=== PATIENT | female | born 1965 | race Caucasian/White ===

== ENCOUNTER 2017-08-09 16:00 | Emergency (ER) | payer OTHER, SELFPAY ==
--- NOTE | 2017-08-09 16:00 | DT_ITS ---
This patient was seen during an EMR downtime August 03, 2017 - August 10, 2017. This patient may have a combination of paper and electronic documentation or all paper documentation. All documentation is viewable within the e-chart portion of [facility] for each patient visit.
== END 2017-08-09 16:15 | disposition home or self-care (01) ==
LOC: ED 08-10 08:20
PROVIDERS: Emergency Provider Emergency Medicine; Family Provider Nurse Practitioner; PCP Nurse Practitioner
DX: I80.3 Phlebitis and thrombophlebitis of lower extremities, unspecified (principal); I10 Essential (primary) hypertension; E78.00 Pure hypercholesterolemia, unspecified; J45.909 Unspecified asthma, uncomplicated; Z78.0 Asymptomatic menopausal state; Z79.899 Other long term (current) drug therapy
CPT/HCPCS: 96372; 99282

== ENCOUNTER → 2017-08-10 10:51 | Outpatient (CLI) | payer OTHER, SELFPAY ==
--- NOTE | 2017-08-10 10:51 | DT_ITS ---
This patient was seen during an EMR downtime August 03, 2017 - August 10, 2017. This patient may have a combination of paper and electronic documentation or all paper documentation. All documentation is viewable within the e-chart portion of [facility] for each patient visit.
--- NOTE | 2017-08-10 10:54 | VDLE_ITS ---
Reason For Study: LEG PAIN RIGHT LEFT GSV is normal. CFV is compressible, spontaneous, phasic, CFV is compressible, spontaneous, phasic, competent, and demonstrates normal competent and demonstrates normal augmentation. augmentation. FV is compressible, spontaneous, phasic, competent and demonstrates normal augmentation. POP V is compressible, spontaneous, phasic, competent and demonstrates normal augmentation. T/P Trunk is compressible. PTV is compressible. RT PerV is compressible. Procedure Exam performed in department. A preliminary report was called and/or faxed to PCP Damaris Sampson. Interpretation Summary Deep veins of the right lower extremity are patent and compressible segmentally. There is no evidence of right lower extremity deep vein thrombosis. Valvular competence appears intact within the proximal deep venous system on the right . The right greater saphenous vein appears patent and compressible segmentally. Ordering Physician: MD Amanda Bergeronfer Referring Physician: Cher Sampson Performed By: Yamilet Lizama RVT
== END ==
PROVIDERS: Family Provider Nurse Practitioner; PCP Nurse Practitioner; Visit Provider Emergency Medicine
DX: M79.604 Pain in right leg (principal)
CPT/HCPCS: 93971

== ENCOUNTER → 2017-08-21 07:32 | Outpatient (CLI) | payer OTHER, SELFPAY ==
--- NOTE | 2017-08-20 17:17 | BI_ITS ---
MAMMOGRAPHY - BILATERAL SCREENING REASON FOR EXAM: Female, 51 years old. Routine annual screening examination. PERTINENT HISTORY: Aunt with breast cancer. TECHNIQUE: Digital bilateral breast mary (3D mammographic acquisition) in the CC and MLO projections. 2-D mediolateral oblique (MLO) and craniocaudad (CC) views of both breasts were obtained. CAD: Full Field Digital Mammography with Computer Added Detection was performed. COMPARISON: Comparison is made with prior study dated 04/17/2016 and July 20, 2015. FINDINGS: Breast Composition: There are scattered areas of fibroglandular density. There are no dominant masses or suspicious calcifications. No other significant abnormalities are identified. There has been no significant change since the prior study. BI/SCREENING MAMM (CAD), BILAT IMPRESSION: Stable bilateral screening mammogram. Yearly follow-up mammogram recommended. (A) ASSESSMENT CATEGORY: BIRADS Category 1: Negative. A letter regarding these results will be sent to the patient by the facility within 30 days. Approximately 10% of breast cancers are not detected by mammography. A normal mammogram should not delay biopsy of a clinically suspicious abnormality. [id number] Electronically Signed: Pola García MD at 12:57 EDT Tel [phone], Service support ,
== END ==
PROVIDERS: Family Provider Nurse Practitioner; PCP Nurse Practitioner; Visit Provider Nurse Practitioner
DX: Z12.31 Encounter for screening mammogram for malignant neoplasm of breast (principal); Z80.3 Family history of malignant neoplasm of breast
CPT/HCPCS: 77063; 77067

== ENCOUNTER → 2017-10-29 12:50 | Outpatient (CLI) | payer OTHER, SELFPAY | PROVIDERS: Family Provider Nurse Practitioner; PCP Nurse Practitioner; Visit Provider Nurse Practitioner | DX: Z78.0 Asymptomatic menopausal state (principal) | CPT/HCPCS: 77080 ==

== ENCOUNTER → 2018-01-19 10:22 | Outpatient (CLI) | payer OTHER, SELFPAY ==
[2018-01-19 10:22] VITALS: BMI 35.6
[2018-01-19 13:19] LABS: Cholesterol 205 mg/dL (200); High Density Lipoprotein 46 mg/dL; Triglycerides 312 mg/dL; Uric Acid 5.8 mg/dL (2.6-6.0); Very Low Density Lipoprotein 62 mg/dL (5-40)
== END ==
PROVIDERS: Family Provider Nurse Practitioner; PCP Nurse Practitioner; Referring Provider Nurse Practitioner; Visit Provider Nurse Practitioner
DX: E78.1 Pure hyperglyceridemia (principal); E79.0 Hyperuricemia without signs of inflammatory arthritis and tophaceous disease
CPT/HCPCS: 36415; 80061; 84550

== ENCOUNTER → 2018-02-22 07:05 | Outpatient (CLI) | payer OTHER, SELFPAY ==
[2018-01-19 10:22] VITALS: BMI 35.6
--- NOTE | 2018-02-22 07:12 | MRI_ITS ---
STUDY: MRI CERVICAL SPINE WITHOUT CONTRAST REASON FOR EXAM: Female, 52 years old. neck pain, burning. TECHNIQUE: Standardized fat and water weighted pulse sequences were obtained in the sagittal and axial planes. COMPARISON: December 07, 2015 FINDINGS: Normal foramen magnum and brainstem-cervical cord junction. Normal craniovertebral junction. Normal anterior atlantoaxial articulation. Normal odontoid process. There is straightening of the normal cervical lordosis. Normal vertebral bodies and posterior osseous elements. C2-3: Normal endplates. Normal disc height, signal and morphology. Normal central canal and intervertebral neural foramina. C3-4: There is minimal disc space narrowing and endplate spondylosis. There is no significant disc herniation, central canal or foraminal stenosis. C4-5: There is minimal disc space narrowing and endplate spondylosis. There is no significant disc herniation, central canal or foraminal stenosis. C5-6: There is mild disc space narrowing and endplates spondylosis. There is a minimal disc osteophyte complex without significant central canal stenosis. There is no foraminal stenosis. Findings are stable since prior examination C6-7: There is moderate disc space narrowing and endplates spondylosis. There is slightly decreased disc osteophyte complex with mild central canal stenosis now. There is uncovertebral arthropathy with minimal foraminal stenosis. C7-T1: Normal endplates. Normal disc height, signal and morphology. Normal central canal and intervertebral neural foramina. Normal cervical cord. Normal visualized soft tissue structures. MRI/Spine Cervical (Routine) IMPRESSION: Decreased protrusion at C6/C7. Electronically Signed: Janeth Diaz MD at 9:22 EST Tel , Service support ,
== END ==
PROVIDERS: Family Provider Nurse Practitioner; PCP Nurse Practitioner; Referring Provider Anesthesiology Pain Medicine; Visit Provider Anesthesiology Pain Medicine
DX: M54.2 Cervicalgia (principal); M79.603 Pain in arm, unspecified
CPT/HCPCS: 72141

== ENCOUNTER 2018-02-25 10:30 | Outpatient (RCR) | payer OTHER, SELFPAY ==
--- NOTE | 2017-04-03 10:46 | MASS.EVAL ---
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 She was referred to the [facility] facility be Dr Cher Sampson with the diagnosis of henatal cervical disc. She reports to having neck and shoulder pain. She reports that the pain is rather constant but the pain increases with working extra hours. She reports that massage helps her greatly. OBJECTIVE: Upon observation Vonnie has poor posture with her head forward and shoulders forward from the neutral position in sitting and standing. After examination and palpation I found Vonnie to have very high muscle tension in his scalenes, trapezius, rhomboids, and sub occipitals with moderate restrictions in cervical ROM. Her thoracic and lumbar paraspinals were tender with muscle knots.The first treatment consisted of a one hour massage to her upper body with myofascial release, muscle stripping, trigger point compression techniques, and cervical manual traction. ASSESSMENT: I feel that Vonnie is a good candidate for massotherapy at this time. She had a favorable response to the first treatment with reduction in her muscle aches, pain and tension. PLAN: The plan of care was reviewed with the patient. The patient is to be seen on as needed basis for a total of ten sessions with the recommendation of once every four weeks for a one hour treatment.
--- NOTE | 2017-04-03 10:51 | MASS.EVAL_ITS ---
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 She was referred to the [facility] facility be Dr Cher Sampson with the diagnosis of henatal cervical disc. She reports to having neck and shoulder pain. She reports that the pain is rather constant but the pain increases with working extra hours. She reports that massage helps her greatly. OBJECTIVE: Upon observation Vonnie has poor posture with her head forward and shoulders forward from the neutral position in sitting and standing. After examination and palpation I found Vonnie to have very high muscle tension in his scalenes, trapezius, rhomboids, and sub occipitals with moderate restrictions in cervical ROM. Her thoracic and lumbar paraspinals were tender with muscle knots.The first treatment consisted of a one hour massage to her upper body with myofascial release, muscle stripping, trigger point compression techniques, and cervical manual traction. ASSESSMENT: I feel that Vonnie is a good candidate for massotherapy at this time. She had a favorable response to the first treatment with reduction in her muscle aches, pain and tension. PLAN: The plan of care was reviewed with the patient. The patient is to be seen on as needed basis for a total of ten sessions with the recommendation of once every four weeks for a one hour treatment.
--- NOTE | 2018-02-25 11:37 | MASS.DISCH ---
Massage Therapy Discharge Summary: Initial Evaluation: 03/31/2017 Diagnosis: Herniated Cervical Disc No. of Visits: Date of last visit: 02/24/2018 Goals: Decreased neck pain Decreased muscle tension This patient is being discharged from our care at the [facility]. Thank you, Mariangel Newman LMT
== END 2018-02-25 12:04 | disposition home or self-care (01) ==
LOC: MASS 10:30
PROVIDERS: Family Provider Nurse Practitioner; PCP Nurse Practitioner; Visit Provider Nurse Practitioner
DX: M50.20 Other cervical disc displacement, unspecified cervical region (principal)
CPT/HCPCS: 97124

== ENCOUNTER 2018-03-10 05:57 | Day surgery (SDC) | payer OTHER, SELFPAY ==
[2018-01-19 10:22] VITALS: BMI 35.6
[2018-03-05 10:51] VITALS: BMI 34.9
[2018-03-10 06:15] VITALS: BP 168/93; PULSE 100; RESP 16; TEMP 36.1; O2SAT 99; BMI 34.4
--- NOTE | 2018-03-10 07:20 | PCM.HP.STD ---
Problem List (1) Screening for colon cancer Status: Acute History of Present Illness Date of Admission: 03/10/18 The patient is a 52 year old F who presents for screening colonoscopy. Past Medical History Past Medical History (Chronic Problems): Chronic Problems (Last Updated 03/05/18 @ 10:54 by Dia Padron) High triglycerides (Chronic) High cholesterol (Chronic) Asthma (Chronic) HTN (hypertension) (Chronic) Medical History: Medical History (Last Reviewed 03/10/18 @ 07:21 by Juan José Lutz MD) High triglycerides (Chronic) E78.1 High cholesterol (Chronic) E78.00 Asthma (Chronic) J45.909 HTN (hypertension) (Chronic) I10 Intervertebral disc protrusion C6 &C7 Allergies No Known Allergies Allergy (Verified 03/08/18 09:10) Home Medications: Ambulatory Orders Medication Instructions Recorded Estradiol [Estrace] 2 mg PO DAILY 10/04/16 atorvastatin 20 mg tablet 20 mg PO DAILY #90 tab 03/05/18 nebivolol 20 mg tablet 20 mg PO DAILY #90 tab 03/05/18 [place]-3 Fatty Acids/Fish Oil [Fish 1 each PO DAILY 03/08/18 Oil 1,000 mg Capsule] Surgical History: Surgical History (Last Reviewed 03/10/18 @ 07:21 by Juan José Lutz MD) H/O: hysterectomy Z98.890, Z90.710 2012 Hx of cholecystectomy Z98.890, Z90.49 2003 Smoking Status: Never smoker Tobacco Use: Non-smoker - *Family History Maternal Family History: Family History (Last Reviewed 03/10/18 @ 07:21 by Juan José Lutz MD) Other Hypertension Review of Systems Cardiovascular: Denies: Chest Pain, Chest Pressure, Chest Tightness, Palpitations Respiratory: Denies: Cough, Hemoptysis, Shortness of breath at rest, Shortness of breath upon exertion, Wheezing Gastrointestinal: Denies: Abdominal Pain, Constipation, Diarrhea, Hematemesis, Nausea, Melena, Vomiting VTE Information - Inpt Only VTE Present on Admission: No VTE Mechan Device Prophylaxis: None VTE Pharm Prophylaxis ordered?: No Reason prophylaxis not ordered:: Treatment Not Indicated Patient Problems: Active and Suspected Problems (Last Updated 03/05/18 @ 10:54 by Dia Padron) Screening for colon cancer (Acute) - Physical Exam General: Alert, Oriented x3 Lungs: Clear to auscultation Cardiovascular: Regular rate, Regular Rhythm, No murmurs Abdomen: Bowel Sounds Present, Soft, Non Tender, Non-Distended Vital Signs Temp Pulse Resp BP Pulse Ox 97.0 F L 100 16 168/93 H 99 03/10/18 06:15 03/10/18 06:15 03/10/18 06:15 03/10/18 06:15 03/10/18 06:15 Oxygen Delivery Method Room Air Weight: 233 lb 6.4 oz Body Mass Index (BMI) 34.4 Assessment/Plan All Active Problems (Last Updated 03/05/18 @ 10:54 by Dia Padron) Screening for colon cancer (Acute) URI (upper respiratory infection) (Acute) RUQ abdominal pain (Acute) My plan is to perform a colonoscopy. Risk benefits have been reviewed the patient at the time of her procedure all questions asked were answered and she agrees to proceed.
[2018-03-10 07:22] VITALS: BP 131/94; BP 168/93; PULSE 90; RESP 16; TEMP 36.2; O2SAT 97
[2018-03-10 07:25] VITALS: BP 142/87; BP 168/93; PULSE 82; RESP 16; O2SAT 97
--- NOTE | 2018-03-10 07:25 | OP.ENDO_ITS ---
Patient Name: Vonnie Gilbert Procedure Date: 03/10/2018 6:31 AM Date of : 1965 Age: 52 Procedure: Colonoscopy Indications: Screening for colorectal malignant neoplasm Providers: Juan José Lutz MD Medicines: See the Anesthesia note for documentation of the administered medications Patient Profile: This is a 52 year old female. Refer to note in patient chart for documentation of history and physical. Last Colonoscopy: none. The patient's first colonoscopy is today. Complications: No immediate complications. Procedure: Pre-Anesthesia Assessment: - Prior to the procedure, a History and Physical was performed, and patient medications and allergies were reviewed. The patient's tolerance of previous anesthesia was also reviewed. The risks and benefits of the procedure and the sedation options and risks were discussed with the patient. All questions were answered, and informed consent was obtained. Prior Anticoagulants: The patient has taken no previous anticoagulant or antiplatelet agents. ASA Grade Assessment: II - A patient with mild systemic disease. After reviewing the risks and benefits, the patient was deemed in satisfactory condition to undergo the procedure. After I obtained informed consent, the scope was passed under direct vision. Throughout the procedure, the patient's blood pressure, pulse, and oxygen saturations were monitored continuously. The colonoscope was introduced through the anus and advanced to the cecum, identified by appendiceal orifice and ileocecal valve. The colonoscopy was performed without difficulty. The patient tolerated the procedure well. The quality of the bowel preparation was good. Scope In: 7:06:29 AM Scope Withdrawal Time 0 hours 7 minutes 14 seconds Scope Out: 7:19:45 AM Total Procedure Duration Time 0 hours 13 minutes 16 seconds Findings: A few small-mouthed diverticula were found in the sigmoid colon. Non-bleeding internal hemorrhoids were found during retroflexion. The hemorrhoids were mild and small. The exam was otherwise without abnormality. Impression: - Diverticulosis in the sigmoid colon. - Non-bleeding internal hemorrhoids. - The examination was otherwise normal. - No specimens collected. Recommendation: - Discharge patient to home. - Resume previous diet. - Continue present medications. - Repeat colonoscopy in 10 years for screening purposes. - Return to primary care physician at appointment to be scheduled. Procedure Code(s): --- Professional --- 97842, Colonoscopy, flexible; diagnostic, including collection of specimen(s) by brushing or washing, when performed (separate procedure) Diagnosis Code(s): --- Professional --- Z12.11, Encounter for screening for malignant neoplasm of colon K64.8, Other hemorrhoids K57.30, Diverticulosis of large intestine without perforation or abscess without bleeding CPT copyright 2017 [employer]. All rights reserved. The codes documented in this report are preliminary and upon heel sewer review may be revised to meet current compliance requirements. MD Juan José Hickman MD 03/10/2018 7:24:54 AM This report has been signed electronically. Number of Addenda: 0 Note Initiated On: 03/10/2018 6:31 AM
[2018-03-10 07:30] VITALS: BP 138/87; BP 168/93; PULSE 80; RESP 16; O2SAT 97
[2018-03-10 07:35] VITALS: BP 139/89; BP 168/93; PULSE 78; RESP 16; TEMP 36.2; O2SAT 95
[2018-03-10 07:45] VITALS: BP 168/93
== END 2018-03-10 07:50 | disposition home or self-care (01) ==
LOC: EN 05:59 → AC 06:00
PROVIDERS: Family Provider Internal Medicine; PCP Internal Medicine; Referring Provider Internal Medicine; Visit Provider Surgery
PROC: 0DJD8ZZ Inspection of Lower Intestinal Tract, Via Natural or Artificial Opening Endoscopic (ICD-10-PCS; CPT 45378; principal; 2018-03-10 06:55)
DX: Z12.11 Encounter for screening for malignant neoplasm of colon (principal); K57.30 Diverticulosis of large intestine without perforation or abscess without bleeding; K64.8 Other hemorrhoids; R10.11 Right upper quadrant pain; J06.9 Acute upper respiratory infection, unspecified; I10 Essential (primary) hypertension; E78.2 Mixed hyperlipidemia; J45.909 Unspecified asthma, uncomplicated; M50.223 Other cervical disc displacement at C6-C7 level; Z79.899 Other long term (current) drug therapy; Z90.49 Acquired absence of other specified parts of digestive tract; Z90.710 Acquired absence of both cervix and uterus
CPT/HCPCS: 45378; J7120; J1610

== ENCOUNTER → 2018-03-22 14:17 | Outpatient (CLI) | payer OTHER, SELFPAY ==
[2018-03-10 06:15] VITALS: BMI 34.4
[2018-03-22 15:06] LABS: Color, Urine Yellow (Yellow); Glucose, Dipstick Normal (Normal); Hematocrit 43.2 % (37-47); Hemoglobin 14.8 g/dl (12.0-15.0); Ketone-Dipstick Negative (Negative); Leukocyte Esterase-Dipstick Negative /ul (Negative); Mean Corp Hgb Conc 34.3 g/gl (32-36); Mean Corpuscular Hgb 30.7 pg (27.0-32.0); Mean Corpuscular Volume 89.6 fL (81-99); Mean Platelet Vol. 10.2 fl (6.2-12.0); Nitrite-Dipstick Negative (Negative); Occult Blood-Urine Negative /ul (Negative); Platelet Count 273 K/mm3 (150-450); Protein-Dipstick Negative (Negative); RBC Distribution Width CV 12.5 % (11.6-14.6); RBC Distribution Width SD 40.7 fl (35.1-43.9); Red Blood Count 4.82 M/mm3 (4.2-5.4); Urine Bilirubin Dipstick Negative (Negative); Urine Clarity Sl. Cloudy (Clear); Urine Urobilinogen Normal (Normal); White Blood Count 6.4 K/mm3 (4.4-11.0)
[2018-03-22 15:07] LABS: Scan Indicated on CBC? Y/N NO
[2018-03-22 16:09] LABS: ALB/GLOB Ratio 1.1 RATIO (0.9-2.4); AST(SGOT) 23 U/L (15-37); Alanine Aminotransfer ALT/SGPT 37 U/L (13-56); Albumin, Serum 3.5 g/dL (3.2-5.0); Alkaline Phosphatase 79 U/L (45-117); Anion Gap 8 (5-15); BUN 15 mg/dL (7-18); BUN/Creat Ratio 17.6 RATIO (10-20); Calcium,Total 8.6 mg/dL (8.5-10.1); Chloride 106 mmol/L (98-107); Creatinine, Serum 0.85 mg/dL (0.55-1.02); EST Glomerular Filtration Rate 75 mL/min (>60); Est Glom Filt Rate - Afr Amer 91 mL/min (>60); Globulin 3.2 g/dL (2.2-4.2); Glucose 110 mg/dL (74-106); Protein, Total 6.7 g/dL (6.4-8.2); Sodium Level 140 mmol/L (136-145)
--- OUTSIDE RECORDS SUMMARY | 2018-05-25 02:24 | XMS RPT_ITS | Continuity of Care Document ---
:1965 Author Organization [facility] Address [address] [facility] [address] [place] [address] Phone Care Team Providers Name Role Phone Cher Sampson CNP Unavailable Wesley JOYA, Juan José Ayala Unavailable Lamonte Kamara Unavailable Jany Sood Unavailable Yvette Benavidez Unavailable Unavailable Florence Farias LPN Unavailable Unavailable Eric Soriano Unavailable Unavailable Unavailable Unavailable Problems Name Dates Details Abnormal EKG (R94.31, 794.31) Comments: for preop Status: Active Allergic rhinitis due to other allergen (J30.89, 477.8) Comments: add saline rinse Status: Active Asthma (J45.909, 493.90) Comments: Mild, and controlled Status: Active Asthma, intrinsic, with status asthmaticus (J45.902, 493.11) Comments: Spirometry next visit. Status: Active BMI 33.0-33.9,adult (Z68.33, V85.33) Status: Active BMI 35.0-35.9,adult (Z68.35, V85.35) Status: Active Breast cancer screening (Z12.39, V76.10) Status: Active Breast cancer screening (Z12.31, V76.10) Status: Active Bronchitis (J40, 490) Status: Active Cellulitis and abscess of other specified site (L03.818, 682.8) Comments: RT arm RESOLVED Status: Active Cervical herniated disc (M50.20, 722.0) Status: Active Cervical radiculopathy, acute (Renamed from Acute cervical radiculopathy) (M54.12, 723.4) Comments: have tried biofreeze, massage, Nsaid, no relief, dry needle, physical therapy, will get MRI send to [facility] adding gabapentin and muscle relax worsening Status: Active Cervical strain (S16.1XXA, 847.0) Comments: unrelieved with ibuprofen Status: Active Chest pain (R07.9, 786.59) Status: Active Cholecystectomy (Gall Bladder Removal) Status: Active Conjunctival irritation (H11.89, 372.89) Status: Active Cough (R05, 786.2) Status: Active Cough (R05, 786.2) Status: Active Cough (R05, 786.2) Comments: certrazine taking 2 qam Status: Active Cramps of right lower extremity (R25.2, 729.82) Status: Active Deliveries (Parity) Comments: 2 Status: Active Elevated uric acid in blood (E79.0, 790.6) Comments: repeat normal Status: Active Encounter for pre-employment examination (Z02.1, V70.5) Comments: physician annual wellness Status: Active Encounter for screening for malignant neoplasm of colon (Renamed from Special screening for malignant neoplasms, colon) (Z12.11, V76.51) Status: Active Encounter for screening mammogram for breast cancer (Renamed from Encounter for screening mammogram for malignant neoplasm of breast) (Z12.31, V76.12) Status: Active Ganglion cyst of foot (M67.479, 727.43) Status: Active GERD (gastroesophageal reflux disease) (K21.9, 530.81) Comments: Mild, less than 2 times weekly, cut back on coffee Status: Active Hammer toe of second toe of right foot (M20.41, 735.4) Status: Active Hypercholesteremia (E78.00, 272.0) Comments: back on atorvastatin Status: Active Hypertension (I10, 401.9) Comments: was well controlled on norvasc and HCTZ, pt stopped norvasc and BP risealso on estrogen per Dr. Hines, would decrease to 1/2unable to tolerate OLIVA or ARB due to cough once dced cough gone Status: Active Hypertriglyceridemia (E78.1, 272.1) Status: Active Hypertriglyceridemia, sporadic (E78.3, 272.3) Comments: on atorvastatin triglycerides 325 Status: Active 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, 214.1) Status: Active Lipoma of lower extremity (D17.20, 214.8) Comments: rt groin will observe for now and send to derm in Sep Status: Active Motion sickness (T75.3XXA, 994.6) Status: Active Nonsmoker (Z78.9, V49.89) Status: Active Nonsmoker (Z78.9, V49.89) Status: Active Physical exam for work/school/camp (Renamed from Encounter for school health examination) (Z02.0, V70.5) Status: Active Physical exam without abnormal findings (Renamed from Encounter for routine adult health examination without abnormal findings) (Z00.00, V70.0) Status: Active Plantar fascial fibromatosis (M72.2, 728.71) Comments: rt Status: Active Postmenopausal (Renamed from Postmenopausal status) (Z78.0, V49.81) Comments: By Bones for hot flashes, hs had hysterectomy Status: Active Pregnancies () Comments: 2 Status: Active Pre-operative examination (Z01.818, V72.84) Comments: Rt foot plantar faciatis and heel spur removal on September 07 Dr. Kidd Status: Active Proteinuria (R80.9, 791.0) Comments: in new hypertensive pt, spep upep normal Status: Active Sebaceous cyst (L72.3, 706.2) Status: Active Serous conjunctivitis, unspecified laterality (H10.239, 372.01) Status: Active Tubal Ligation Status: Active Unspecified asthma with (acute) exacerbation (J45.901, 493.92) Status: Active Unspecified Diagnosis Status: Active Unspecified Diagnosis Status: Active Unspecified Diagnosis Status: Active Unspecified Diagnosis Status: Active Unspecified Diagnosis Status: Active Unspecified Diagnosis Status: Active Unspecified Diagnosis Status: Active Vaccine for dkpxzxucnw-vadwurn-mwbpremlj with poliomyelitis (Z23, V06.3) Status: Active Well Female (V72.31) (II) (Z00.00, V70.0) Status: Active Wheezing (R06.2, 786.07) Status: Active Medications Name Dates Details Bystolic 10 MG Oral Tablet 1 (one) Tablet daily for 30 days Quantity: 90 {Tablet} Refills: 3 Ordered:25-Jan-2018 Camilla ANNE, Cher Edge CNP Start : 25-Jan-2018 Active Cetirizine HCl 10 MG Oral Tablet 2 (two) Tablet daily for 30 days Quantity: 30 {Tablet} Refills: 2 Ordered:21-Oct-2017 Camilla ANNE, Cher Edge CNP Start : 21-Oct-2017 Active Estradiol 2 MG Oral Tablet 1 (one) Tablet daily for 90 days Quantity: 90 {Tablet} Refills: 3 Ordered:25-Jan-2018 Camilla ANNE, Cher Edge CNP Start : 25-Jan-2018 Active Lipitor 20 MG Oral Tablet 1 Tablet daily for 90 days Quantity: 90 {Tablet} Refills: 0 Ordered:25-Jan-2018 Camilla ANNE, Cher Edge CNP Start : 25-Jan-2018 Active ProAir HFA 108 (90 Base) MCG/ACT Inhalation Aerosol Solution 2 (two) Puff(s) tid prn for 0 days Quantity: 1 {Inhaler} Refills: 0 Ordered:19-Aug-2017 Cher Sampson CNP, CNP, Mary E Start : 19-Aug-2017 Active BACTRIM DS, 800-160MG (Oral Tablet) 1 (one) Tablet bid for 7 days Quantity: 14 {Tablet} Refills: 0 Ordered:20-Aug-2009 Cher Sampson CNP, CNP, Mary E Start : 20-Aug-2009 End : 27-Aug-2009 Inactive BENICAR HCT, 40-12.5MG (Oral Tablet) 1 Tablet daily for 0 days Quantity: 30 {Tablet} Refills: 3 Ordered:28-May-2011 Fiorella Rae LPN Start : 29-Jan-2011 End : 28-May-2011 Inactive Cheratussin AC 100-10 MG/5ML Oral Syrup 1-2 Teaspoon(s) qhs prn cough for 0 days Quantity: 6 {Ounce} Refills: 0 Ordered:16-Jun-2017 Eric Soriano Start : 09-Jul-2016 End : 16-Jun-2017 Inactive Cyclobenzaprine HCl 5 MG Oral Tablet 1 (one) Tablet Tablet q8hrs prn for 0 days Quantity: 30 {QS} Refills: 0 Ordered:16-Jun-2017 Eric Soriano Start : 30-Nov-2015 End : 16-Jun-2017 Inactive FLECTOR, 1.3% (Transdermal Patch) 1 (one) Patch bid for 0 days Quantity: 7 {Patch} Refills: 0 Ordered:06-Nov-2009 Fiorella Rae LPN Start : 22-Oct-2009 Inactive FLEXERIL, 10MG (Oral Tablet) 1 (one) Tablet tid prn for muscle spasm for 0 days Quantity: 30 {Tablet} Refills: 0 Ordered:06-Nov-2009 Fiorella Rae LPN Start : 12-Oct-2009 Inactive HYDROCHLOROTHIAZIDE, 12.5MG (Oral Tablet) 1 Tablet daily for 0 days Quantity: 90 {Tablet} Refills: 3 Ordered:16-Aug-2013 Tisha Salcedo Start : 28-Jun-2012 End : 16-Aug-2013 Inactive KEFLEX, 500MG (Oral Capsule) 1 Capsule bid for 7 days Quantity: 14 {Capsule} Refills: 0 Ordered:30-Jun-2012 Perlitadamián ANNE, Cher Wallace CNP, Cynthia Start : 30-Jun-2012 End : 07-Jul-2012 Inactive LEVAQUIN, 500MG (Oral Tablet) 1 (one) Tablet daily for 7 days Quantity: 7 {Tablet} Refills: 0 Ordered:15-May-2014 [facility] IN[facility], Cher aWllace CNP, Cynthia Start : 15-May-2014 End : 22-May-2014 Inactive LISINOPRIL, 5MG (Oral Tablet) 1 Tablet daily for 0 days Quantity: 30 {Tablet} Refills: 3 Ordered:11-Feb-2011 Fiorella Rae LPN Start : 15-Jan-2011 End : 11-Feb-2011 Inactive LIVALO, 2MG (Oral Tablet) 1 Tablet daily for 0 days Quantity: 30 {Tablet} Refills: 3 Ordered:28-May-2011 Fiorella Rae LPN Start : 29-Jan-2011 End : 28-May-2011 Inactive MOTRIN, 400MG (Oral Tablet) Tablet bid for 7 days Quantity: 30 {Tablet} Refills: 0 Ordered:09-Feb-2008 Camilla ANNE, Cher Wallace CNP, Cher Henson Start : 09-Feb-2008 End : 10-Mar-2008 Inactive MYCELEX, 10MG (Mouth/Throat Mikey) 1 (one) Mikey 5 times daily for 10 days Quantity: 50 {Mikey} Refills: 0 Ordered:28-Aug-2009 Camilla ANNE, Cher Wallace CNP, Cher Henson Start : 13-Aug-2009 End : 23-Aug-2009 Inactive NORVASC, 10MG (Oral Tablet) 1 Tablet daily for 0 days Quantity: 90 {Tablet} Refills: 3 Ordered:30-Mar-2012 Fiorella Rae LPN Start : 16-Sep-2011 End : 30-Mar-2012 Inactive NORVASC, 5MG (Oral Tablet) 1 (one) Tablet daily for 0 days Quantity: 90 {Tablet} Refills: 3 Ordered:22-Dec-2011 Fiorella Rae LPN Start : 16-Sep-2011 End : 22-Dec-2011 Inactive OCUFLOX, 0.3% (Ophthalmic Solution) 2 (two) Drop(s) q4hrs x 2days, then 1-2 drops qid x 5 days for 0 days Quantity: 1 {Solution} Refills: 0 Ordered:16-Aug-2013 Tisha Salcedo Start : 30-Mar-2012 End : 16-Aug-2013 Inactive PEPCID, 20MG (Oral Tablet) 1 (one) Tablet bid prn for 0 days Quantity: 10 {Tablet} Refills: 0 Ordered:15-Jan-2011 Fiorella Rae LPN Start : 12-Oct-2009 End : 15-Jan-2011 Inactive PredniSONE 10 MG Oral Tablet 1 (one) Tablet bid x 3 days, then daily x3 days then 1/2 x3 days for 0 days Quantity: 11 {Tablet} Refills: 0 Ordered:16-Jun-2017 Eric Soriano Start : 09-Jul-2016 End : 16-Jun-2017 Inactive Comments:with food PREDNISONE, 20MG (Oral Tablet) 1 (one) Tablet bid x 3 days, then daily x 3 days then 1/2 x3 days for 3 days Quantity: 3 {Tablet} Refills: 0 Ordered:04-Feb-2013 Camilla ANNE, Cher Wallace CNP, Cher Henson Start : 04-Feb-2013 End : 07-Feb-2013 Inactive Comments:with food Zithromax Z-Speedy 250 MG Oral Tablet 1 Tablet TAD for 0 days Quantity: 1 {Package} Refills: 0 Ordered:16-Jun-2017 Eric Soriano Start : 09-Jul-2016 End : 16-Jun-2017 Inactive Aleve 220 MG Oral Tablet 1 (one) Tablet Tablet bid prn for 0 days Quantity: 60 {Tablet} Refills: 0 Ordered:21-Oct-2017 Yvette Benavidez Start : 16-Nov-2015 End : 21-Oct-2017 Discontinued BYSTOLIC, 5MG (Oral Tablet) 1 Tablet daily for 0 days Quantity: 90 {Tablet} Refills: 0 Ordered:04-Jan-2015 Fiorella Rae LPN Start : 03-Oct-2014 End : 04-Jan-2015 Discontinued Carvedilol 6.25 MG Oral Tablet 1 (one) Tablet Tablet two times daily for 0 days Quantity: 180 {Tablet} Refills: 3 Ordered:19-Oct-2015 SlaFlorence cee LPN Start : 24-Apr-2015 End : 19-Oct-2015 Discontinued CIPRO, 500MG (Oral Tablet) 1 (one) Tablet Twice daily for 0 days Quantity: 20 {Tablet} Refills: 0 Ordered:28-Dec-2006 Kimberly Hernandez Start : 28-Dec-2006 End : 09-Feb-2008 Discontinued Claritin 10 MG Oral Capsule 1 (one) Capsule daily for 0 days Quantity: 30 {Capsule} Refills: 0 Ordered:21-Oct-2017 Yvette Benavidez Start : 16-Jun-2017 End : 21-Oct-2017 Discontinued DIFLUCAN, 150MG (Oral Tablet) 1 (one) Tablet once for 0 days Quantity: 1 {Tablet} Refills: 1 Ordered:15-Sep-2007 Kimberly Hernandez Start : 15-Sep-2007 End : 09-Feb-2008 Discontinued Gabapentin 300 MG Oral Capsule 1 (one) Capsule bid to tid for 0 days Quantity: 90 {Capsule} Refills: 0 Ordered:21-Oct-2017 Yvette Benavidez Start : 30-Nov-2015 End : 21-Oct-2017 Discontinued LODINE XL, 400MG (Oral Tablet Extended Release 24 Hour) 2 (two) Tablet ER 24HR Daily for 0 days Quantity: 60 {Tablet_ER_24HR} Refills: 0 Ordered:22-Oct-2006 Kimberly Hernandez Start : 22-Oct-2006 End : 09-Feb-2008 Discontinued MUPIROCIN, 2% (External Ointment) 1 (one) Ointment apply as directed for 0 days Quantity: 1 {Tube(s)} Refills: 0 Ordered:12-Oct-2009 Stacey Bui RN Start : 12-Oct-2009 End : 12-Oct-2009 Discontinued Comments:Use different swabs and apply smal amt to end of q tip to nasal, using different swab to umbilicus and rectum daily x 5 days PHENERGAN, 25MG (Oral Tablet) 1 (one) Tablet q6hrs prn for 0 days Quantity: 15 {Tablet} Refills: 0 Ordered:16-Jan-2009 Fiorella Rae LPN Start : 16-Jan-2009 End : 06-Nov-2009 Discontinued Comments:This order discontinued per [facility]. PREVACID, 30MG (Oral Capsule Delayed Release) 1 (one) Capsule DR daily for 0 days Quantity: 30 {Capsule_DR} Refills: 0 Ordered:12-Oct-2009 Stacey Bui RN Start : 12-Oct-2009 End : 12-Oct-2009 Discontinued Tessalon Perles 100 MG Oral Capsule 1 Capsule tid prn cough for 0 days Quantity: 30 {Capsule} Refills: 1 Ordered:21-Oct-2017 Yvette Benavidez Start : 16-Jun-2017 End : 21-Oct-2017 Discontinued TOPROL XL, 50MG (Oral Tablet Extended Release 24 Hour) 1 Tablet ER 24HR QD for 0 days Refills: 0 Ordered:17-Feb-2006 Denisse Tirado Start : 17-Feb-2006 End : 17-Feb-2006 Discontinued Comments:Pt stopped and BP controlled. TRANSDERM-SCOP, 1MG/3DAYS (Transdermal Patch 72 Hour) 1 (one) Patch 72HR q 72 h prn for 0 days Quantity: 5 {Package} Refills: 1 Ordered:29-Nov-2014 Slarb Florence SMITH Start : 09-Oct-2014 End : 29-Nov-2014 Discontinued VESICARE, 5MG (Oral Tablet) 1 (one) Tablet Daily for 0 days Quantity: 30 {Tablet} Refills: 3 Ordered:22-Oct-2006 Kimberly Hernandez Start : 22-Oct-2006 End : 09-Feb-2008 Discontinued Allergies and Adverse Reactions Name Dates Details No Known Allergies (Allergy) Onset: 16-Aug-2013 Status: Active No Known Drug Allergies (Allergy) Status: Active Past Medical History Name Dates Details Abdominal pain, acute, right upper quadrant (R10.11, 789.01) Status: Inactive as of 28-Aug-2009 ACHILLES TENDINITIS (726.71) Comments: SPLAY PARTICE SUPPORT SHOE AND STRETCH Status: Resolved as of 17-Jul-2008 Acute cystitis (N30.00, 595.0) Status: Resolved as of 17-Jul-2008 Candidiasis, mouth (B37.0, 112.0) Status: Inactive as of 28-Aug-2009 Dyspareunia (625.0) Comments: Chronic issue will evaluate with pelvic ultrasound. Will refer to [facility] if persists. Status: Inactive as of 17-Jul-2008 Dysuria (R30.0, 788.1) Status: Resolved as of 17-Jul-2008 hyperpigmentation Comments: discussed optioons Status: Inactive as of 28-Aug-2009 Insect bite, nonvenomous of shoulder and upper arm, infected (S40.269A, 912.5) Status: Inactive as of 28-Aug-2009 Irregular menstrual cycle (N92.6, 626.4) Status: Inactive as of 25-Jan-2018 Mitral valve prolapse (I34.1, 424.0) Comments: stable Status: Inactive as of 04-Sep-2009 Nausea (R11.0, 787.02) Status: Inactive as of 28-Aug-2009 Obesity, unspecified (E66.9, 278.00) Comments: Referral why weight Status: Inactive as of 28-Aug-2009 Pain in joint involving other specified sites (M25.50, 719.48) Comments: rt foot tendonitis Status: Resolved as of 17-Jul-2008 Premenopausal menorrhagia (Renamed from Climacteric menorrhagia) (N92.4, 627.0) Status: Inactive as of 28-Aug-2009 Screening for hyperlipidemia (Z13.220, V77.91) Status: Inactive as of 17-Jul-2008 Spur, calcaneal (726.73) Comments: rt Status: Inactive as of 06-Nov-2009 Urinary incontinence (R32, 788.30) Comments: stable on vesicare Status: Inactive as of 29-Crispin-2010 Vaginitis and vulvovaginitis (N76.0, 616.10) Status: Resolved as of 17-Jul-2008 Procedures Procedure Dates Details Hysterectomy Completed 17-May-2013 Date Value Details 29-Oct-2017 Dexa Bone Density Study Result: Comments: See Note; NOTES: [facility] Imaging Services [address] [place] [address] Dexa Bone Density Study MR#: [id number] Acct: [id number] Name: VONNIE GILBERT Rep #: [id number] : 1965 F 51 From: Pola García MD PCP: Cher Sampson NP Status: REG CLI Study: Dexa Bone Density Study Date of Exam: 10/29/17 Exam# [id number] Ordering Dr: Cher Sampson STUDY: DUAL ENERGY X-RAY ABSORPTIOMETRY / DXA REASON FOR EXAM: Female, 51 years old. The patient is postmenopausal. Loss of height. TECHNIQUE: Bone Mineral Density (BMD) measurements of lumbar spine and bilatera l hips were obtained. COMPARISON: None. FINDINGS: Lumbar Spine (L1-L4): g/cm2 (1.278) / T-score (0.8) / Z-score (1.2) Findings are suggestive of normal bone densit y with a low fracture risk. Left Femur Total: g/cm2 (1.167) / T-score (1.3) / Z-score (1.7) Left Femoral Neck: g/cm2 (1.114) / T-score (0.5) / Z-score (1.3) Right Femur Total: g/cm2 (1.113) / T-score ( 0.8) / Z-score (1.3) Right Femoral Neck: g/cm2 (1.040) / T-score (0.0) / Z-score (0.8) BD/Dexa Bone Density Study IMPRESSION: The patient is con sidered normal as outlined below according to World Marshall Organization (WHO) criteria with a low fracture risk. Reference Information: The T-score is the number of standard deviations above or below the standard which is normal for young adults at their peak bone mineral density. The World Health Organization (WHO) interprets the T-scores as follows: Above -1 Nor mal bone density Between -1 and -2.5 Osteopenia Equal to / or below -2.5 Osteoporosis As a practical clinical guideline, osteopenia may be graded as follows: Mild - 1 through -1.5 Moderate -1.6 through -2.0 Severe -2.1 through -2.4 The Z-score is the number of standard deviations above or below age-matched controls. A Z-score of less than -1.5 would be considered abnormal. References: 1. NIH Osteopo rosis and Related Bone Diseases http://www.osteo.org 2. International Society for Clinical Densitometry http://www.iscd.org 3. National Osteoporosis Foundation http://www.nof.org Electronically Signed: Pola García MD at 15:46 EDT Tel [phone], Service support , CC: Cher Sampson NP Commercial Construction Superintendent: Signed 20-Aug-2017 SCREENING MAMM (CAD), BILAT Result: Comments: See Note; NOTES: [facility] Imaging Services [address] [place] [id number] SCREENING MAMM (CAD), BILAT MR#: [id number] Acct: [id number] Name: VONNIE GILBERT Rep # : [id number] : 1965 F 51 From: Pola García MD PCP: Cher Sampson NP Status: REG CLI Study: SCREENING MAMM (CAD), BILAT Date of Exam: 08/20/17 Exam# [id number] Ordering Dr: Cher Sampson [facility] MOGRAPHY - BILATERAL SCREENING REASON FOR EXAM: Female, 51 years old. Routine annual screening examination. PERTINENT HISTORY: Aunt with breast cancer. TECHNIQUE: Digital bilateral breast mary (3D ma mmographic acquisition) in the CC and MLO projections. 2-D mediolateral oblique (MLO) and craniocaudad (CC) views of both breasts were obtained. CAD: Full Field Digital Mammography with Computer Added D etection was performed. COMPARISON: Comparison is made with prior study dated 04/17/2016 and July 20, 2015. FINDINGS: Breast Composition: There are scattered areas of fibroglandular density. There are no dominant masses or suspicious calcifications. No other significant abnormalities are identified. There has been no significant change since the prior study. BI/SCREENING MAMM (CAD), BILAT IMPRESSION: Stable bilateral screening mammogram. Yearly follow-up mammogram recommended. (A) ASSESSMENT CATEGORY: BIRADS Category 1: Negative. A letter regarding these results will be sent to the patient by the facility within 30 days. Approximately 10% of breast cancers are not d etected by mammography. A normal mammogram should not delay biopsy of a clinically suspicious abnormality. [id number] Electronically Signed: Pola García MD at 12:57 EDT Tel [phone], Service support , CC: Cher Sampson NP Commercial Construction Superintendent: Signed 20-Aug-2017 Downtime Report Result: Comments: See Note; NOTES: [facility] Medical Records Department [address] [place] [address] Downtime Report MR#: [id number] Acct: [id number] Name: VONNIE GILBERT Rep #: [id number] : 1965 51 From: Jesse Carrasco PCP: Cher Sampson NP Status: REG CLI This patient was seen during an EMR downtime August 03, 2017 - August 10, 2017. This patient may have a combination of paper and electronic documentation or all paper documentation. All documentation is viewable within the e-chart portion of [employer] for each patient visit. 19-Aug-2017 Downtime Report Result: Comments: See Note; NOTES: [facility] Medical Records Department [address] [place] [address] Downtime Report MR#: [id number] Acct: [id number] Name: VONNIE GILBERT Rep #: [id number] : 1965 51 From: Jesse Carrasco MD PCP: Cher Sampson NP Status: DEP ER This patient was seen during an EMR downtime August 03, 2017 - August 10, 2017. This patient may have a combination o f paper and electronic documentation or all paper documentation. All documentation is viewable within the e-chart portion of [employer] for each patient visit. 09-Apr-2017 Urgent Care Visit Report Result: Comments: See Note; NOTES: [facility] [address] [place] [address] [address] [place] [address] OFFICE VISIT Date of Service: 04/09/17 MR#: [id number] Acct: [id number] Name: VONNIE GILBERT Rep #: [id number] : 1965 Provider: Donnie SOTOMAYOR Age/Sex: 51/F Location: [facility] Status: Signed Intake Vital Signs04/09/17 Height 5 ft 9 in 04/09/17 Weight: 241 lb 04/09/17 Body Mass Index (B WI) 35.6 Intake Visit Reasons: ILL Risk Management Analyst Required: No Is patient in pain?: No Allergies No Known Allergies Allergy (Verified 04/09/17 16:32) Medications Atorvastatin Calcium [Lipitor] 20 mg PO DAILY 05/11/13 [History Confirmed 04/09/17] Nebivolol HCl [Bystolic] 10 mg PO DAILY 05/11/13 [History Confirmed 04/09/17] Estradiol [Estrace] 2 mg PO DAILY 10/04/16 [History Confirmed 04/09/17] Dejesus xicam 7.5 mg PO DAILY 10/04/16 [History Confirmed 04/09/17] [facility] Medical History HTN (hypertension) (Chronic) Surgical History (Reviewed 04/09/17 @ 16: 33 by Florina Kennedy) H/O: hysterectomy (Acute) Hx of cholecystectomy (Acute) Family History Other Hypertension Social History Smoking Status: Never smo ker alcohol intake: never HPI HPI Details: VONNIE GILBERT, is a 51 F who presents to the office today for initial evaluation approximately 24 hour history of headache, myalgias, chills, dry cough . Patient notes prior to yesterday being essentially asymptomatic. She knows no family members in her house with similar signs or symptoms. She is a non- smoker. She notes no other associated symptoms an d no other alleviating or aggravating factors. ROS Const Constitutional: Positive for chills, body ache and headache(s); no excessive sweating, abnormal sleep pattern, fever(s) or night sweats Eyes Ey es: No change in vision ENT ENT: Positive for headache(s); no abnormal hearing, ear pain, ear discharge, ear pressure, hearing loss, post nasal drip or sinus pressure Resp Respiratory: Positive for coug h; no chest congestion Cardio Cardiology: No excessive sweating, chest pain at rest, chest pain with exertion, shortness of breath, dyspnea on exertion, irregular heart rhythm, generalized swelling or l eg pain with exertion Gastro GI: No abdominal pain, change in stool character or change in bowel habits Musc Musculoskeletal: No joint pain, back pain or limited range of motion Skin Skin: No change in hair or sores Neuro Neurology: Positive for headache(s); no abnormal hearing, abnormal speech or abnormal movements Psych Psychiatric: No abnormal sleep pattern Endo Endocrine: No excessive sweating, ch crystal in body appearance, cold intolerance or heat intolerance Aller/Imm Allergy/Immunologic: No food intolerance Horacio/Lymp Hematologic/Lymphatic: No easy bruising Exam Const General: cooperative, heal thy appearing, no acute distress, uncomfortable Nutritional Appearance: average body habitus Orientation: alert, awake, oriented x3 HENMT Head: normal to inspection Ears: hearing grossly normal bilatera lly, external ears normal, TM's normal bilaterally, EAC's normal Nose: external nose normal, nares normal, septum normal, nasal discharge clear Face and sinus: normal facial exam, sinuses nontender, fac e symmetric Mouth: oral mucosae normal, lip normal, oropharynx normal, tongue normal Teeth and gingiva: dentition normal, gingiva normal Throat: posterior oropharynx normal, tonsils normal, uvula midlin e Eyes General: appearance normal, both eyes and all related structures Neck Neck: normal visual inspection, full ROM, no lymphadenopathy, no meningeal signs, supple Neck mass: No Thyroid: thyroid esmer l Lymphatic: no lymphadenopathy noted Chest Chest palpation AND inspection: normal inspection of the chest Resp Effort AND Inspection: normal respiratory effort, able to speak in complete sentences, sym metric chest movement, cough Quality of cough: dry Auscultation: Bilateral: Clear to Auscultation Cardio Palpation: normal PMI Rate: regular rate Rhythm: regular rhythm Heart Sounds: S1 normal, S2 esmer l, no gallops, no murmurs, no rubs Pulses: radial pulses present GI Inspection: normal to inspection Palpation: soft, no hepatosplenomegaly Skin General: no rashes or lesions noted Neuro General: alert, awake, oriented x3, gait normal Cognition: normal cognition Speech: speech normal Gait: normal gait Motor: muscle tone normal throughout Sensory Exam: no sensory deficits noted Extrem General: normal t o inspection Psych Appearance: grossly normal Mental Status: mental status grossly normal Mood: congruent mood Affect: normal affect Speech and Movement: speech and movement normal Attitude: cooperative Thought Process: normal Thought Content: normal Judgment: judgment good Results [facility] Office Flu A AND B Negative FLU A AND B Last Edit by Florina Kennedy on 04/09/17 16:54 Assessment AND Plan Pro blems 1. URI (upper respiratory infection) J06.9 Plan Patient aware today's rapid flu is negative. Clear fluids, rest, Advil/Tylenol as for symptomatic relief. Work excuse given to patient. Follow-up w ith PCP in 5-7 days should symptoms not improve, sooner should symptoms worsen or any other concerns develop. Patient states acknowledging understanding all the above. This note was generated with Drag on dictation software. It may contain incorrect words, spelling, and punctuation that were not noted in checking the note before signing. Orders Orders: Coding Level of Care Code Off vis,est,level 3 Diagnoses URI (upper respiratory infection) J06.9 04/09/17 0332 <Electronically signed by Donnie SOTOMAYOR> Date Donnie Murrieta Signature: Date (if applicable) CC: 03-Apr-2017 Massage Therapy Evaluation Result: Comments: See Note; NOTES: [facility] 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 She was referred to the [facility] facility be Dr Cher Sampson with the diagnosis of henatal cervical disc. She reports to having neck and shoulder pain. She reports that the pain is rather constant but the pain increases with working extra hours. She reports that massage helps her greatly. OBJECTIVE: Upon observation Vonnie has poor posture with her head forward and shoulders forward from the neutral position in sitting and standing. After examination and palpation I found Vonnie to have very high muscle tension in his scalenes, trapezius, rhomboids, and sub occipitals with moderate restri ctions in cervical ROM. Her thoracic and lumbar paraspinals were tender with muscle knots.The first treatment consisted of a one hour massage to her upper body with myofascial release, muscle stripping, trigger point compression techniques, and cervical manual traction. ASSESSMENT: I feel that Vonnie is a good candidate for massotherapy at this time. She had a favorable response to the first treatment with reduction in her muscle aches, pain and tension. PLAN: The plan of care was reviewed with the patient. The patient is to be seen on as needed basis for a total of ten sessions with the recommenda tion of once every four weeks for a one hour treatment. <Electronically signed by Susu Malin > 04/03/17 1052 CC: Cher Sampson NP LYUBOV Signed For [facility] care only, by signing this I certify the plan of care. Physicians Signature Date 16-Mar-2017 Urgent Care Visit Report Result: Comments: See Note; NOTES: [facility] [address] [place] [address] OFFICE VISIT Date of Service: 03/16/17 MR#: [id number] Acct: [id number] Name: VONNIE GILBERT Rep #: [id number] : 1965 Provider: Kris SOTOMAYOR Age/Sex: 51/F Location: [facility] Status: Signed Intake Vital Signs03/16/17 Height 5 ft 9 in Intake Visit Reasons: RIGHT SIDE PAIN Is patient i n pain?: Yes Allergies No Known Allergies Allergy (Verified 03/16/17 11:42) Medications Atorvastatin Calcium [Lipitor] 20 mg PO DAILY 05/11/13 [History Confirmed 03/16/17] Nebivolol HCl [Bystolic] 10 mg PO DAILY 05/11/13 [History Confirmed 03/16/17] Estradiol [Estrace] 2 mg PO DAILY 10/04/16 [History Confirmed 03/16/17] Meloxicam 7.5 mg PO DAILY 10/04/16 [History Confirmed 03/16/17] PFSH Medic al History HTN (hypertension) (Chronic) Surgical History H/O: hysterectomy (Acute) Hx of cholecystectomy (Acute) Family History Other Hypertension Social History Smoking Status: Never smoker a lcohol intake: never HPI RIGHT SIDE PAIN: Details: VONNIE GILBERT, is a 51 F who presents to the office today for right upper quadrant pain which started at 4 AM this morning. Patient states that she was awoke by the pain this morning and took 2 Aleve at 6 AM and then another 2 Aleve at approximately 9 AM which has helped dull the pain. She reports that the pain currently is a 3 out of 10 consta nt pain. She describes the pain as a sharp stabbing type pain. She does report having a normal bowel movement this morning since the initiation of the pain and denies any bloating or abdominal cramping. She has had no increase in gas or belching. She does have a history of cholecystectomy and total hysterectomy. She has had no nausea, vomiting or diarrhea. No fever, chills, sweats. No other associated symptoms or alleviating/aggravating factors. ROS Const Constitutional: No chills, fever(s), fatigue or abnormal sleep pattern Resp Respiratory: No shortness of breath or chest congestion Cardio Cardio logy: No chest pain at rest, chest pain with exertion or shortness of breath Gastro GI: Positive for abdominal pain; no bloating, belching, diarrhea, vomiting, nausea/dyspepsia, Vomiting blood/hematemes is, constipation or cramping Skin Skin: No wounds or lesions Neuro Neurology: No behavioral changes or confusion Psych Psychiatric: No behavioral changes, No confusion, No abnormal sleep pattern Endo En docrine: No fatigue Exam Const General: cooperative, healthy appearing [facility] Head: normocephalic, atraumatic Ears: hearing grossly normal bilaterally Face and sinus: face symmetric Eyes General: appea trevor normal, both eyes and all related structures Pupils: PERRL Resp Effort AND Inspection: normal respiratory effort Auscultation: Bilateral: Clear to Auscultation Cardio Rate: regular rate Rhythm: re gular rhythm Heart Sounds: S1 normal, S2 normal GI Inspection: normal to inspection, non-distended Auscultation: normal bowel sounds Percussion: normal to percussion Palpation: soft, no hepatosplenomega ly, not firm, nontender, other (Negative McBurney's point tenderness, psoas and obturator sign.) Skin General: no rashes or lesions noted Neuro General: alert Psych Appearance: grossly normal Mental Sta tus: mental status grossly normal Assessment AND Plan Problems 1. RUQ abdominal pain R10.11 Status Acute Plan Patient sent for CBC w/ diff and CMP and patient advised to f/u with her PCP for results in 7-10 days for results or if no improvement; sooner if worsening of symptoms. Encouraged to get plenty of rest, drink lots of clear liquids, and use Tylenol or Ibuprofen (unless contraindicated) for f ever and comfort. Patient also educated on other symptomatic management techniques. Patient advised of potential red flags and when appropriate to report to the ED. Patient verbalized understanding all of the above. This note was generated with PublishThis dictation software. It may contain incorrect words, spelling, and punctuation that were not noted in checking the note before signing. Orders Orders: Coding Level of Care Code Off vis,new,level 3 Diagnoses RUQ abdominal pain R10.11 03/16/17 1210 <Electronically signed by Kris SOTOMAYOR> Date Kris SOTOMAYOR Cosigner Signature: Date (if applicable) CC: 27-Feb-2017 Discharge Summary Result: Comments: See Note; NOTES: [facility] Medical Records Department [address] [place] [address] Discharge Summary 02/27/17 1309 MR#: [id number] Acct: [id number] Name: VONNIE GILBERT Rep #: [id number] : 1965 51 From: Yvrose Pickard PCP: Cher Sampson NP Status: REG RCR Y Location: [facility] Massage Therapy Discharge Summary: Initial Evaluation Date: 03/28/16 This patient was seen for a massotherapy evaluation on 03/28/2016 with a diagnosis of cervical radiculopathy and herniated disc. She was treated with eight sessions of massage therapy which included MFR, muscle strippi ng and a heat pack to loosen muscles. Due to time constraints with insurance, at this time I will discharge this patient from our care at [facility]. Sincerely, Yvrose Pickard LMT 02/27/17 1315 <Electronically signed by Yvrose Pickard > Date Yvrose Pickard Cosigner Signature (if applicable): Date ____ CC: Cher Sampson SCOW CAPTAIN; Yvrose Pickard Signed 04-Oct-2016 Emergency Department Summary Result: Comments: See Note; NOTES: [facility] Medical Records Department [address] [facility] [place] [place] [address] Emergency Department Summary 10/04/16 2158 MR#: [id number] Acct: [id number] Name: VONNIE GILBERT Rep #: [id number] : 1965 50 From: Jaylen Khan MD PCP: Cher Sampson Status: DEP ER - ER Visit Summary Date of Service: 10/04/16 Chief Complaint: Bilateral hand injuries H istory of Present Illness: The patient is a 50 F who presents to the emergency department bilateral hand injuries. Patient was chasing her dog. She states that she went to jump to get the lesion. She tr ipped and fell forward landing with both hands on concrete. She had a puncture wound to the palm of her right hand. She has suffered abrasions to her left hand. She denies pain in the right hand. Most t he pain is in her left hand. Her last tetanus was less than 2 years ago. Physical Examination: Patient has abrasion over the lateral aspect of the left fifth finger down into the fifth MCP joints. No r otational deformity. She does have a 2's and radial full-thickness laceration the mid palm on the right hand. No evidence of injury to the recurrent nerve. Normal pulses. No pain with palpation. Test R esults: X-rays of both hands show no evidence of acute fracture Emergency Department Course and Treatment: The patient had let applied. Her wound was irrigated and debrided. It was closed with 5 simple interrupted suture. Her left hand was placed in a bacitracin dressing. Right hand was also placed in a bacitracin dressing over the suture. She was counseled on wound care and reasons to return. She wi ll be discharged home. Treatment Plan: [] Disposition: Discharge Impression: 1. Left hand abrasion 2. 2 cm right hand laceration with repair ED Disposition - Plan for ED Patient: Disposition: Home or Assisted Living Chief Complaint: Fall Instructions: ED Laceration All Referrals: PerlitamoiraCher sahu [Primary Care Provider] - 10 Day for suture removal What to do if you have Problems For any increased pain, shortness of breath, bleeding, nausea or vomiting, chest pain, or any unexpected problems, contact your Primary Care Provider. Call [facility] ([phone]) or report to the closest Emergen cy Room. Call 911 if necessary. 10/04/16 7351 <Electronically signed by Jaylen Khan MD> Date Jaylen Khan MD Cosigner Signatur e (If Indicated): Date CC: Cher Sampson 15-Aug-2016 SCREENING MAMM (CAD), BILAT Result: Comments: See Note; NOTES: [facility] Imaging Services [address] [place] [address] Verdana 4d SCREENING MAMM (CAD), BILAT MR#: [id number] Acct: [id number] Name: Gwen GILBERT Rep #: [id number] : 1965 F 50 From: Pola García MD PCP: Cher Sampson Status: REG CLI Study: SCREENING MAMM (CAD), BILAT Date of Exam: 08/15/16 Exam# [id number] Ordering Dr: Jonathan Sampson MAMMOGRAPHY - BILATERAL SCREENING REASON FOR EXAM: Female, 50 years old. Routine annual screening examination. PERTINENT HISTORY: Aunt with breast cancer. TECHNIQUE: Digital bilateral breast kyler o (3D mammographic acquisition) in the CC and MLO projections. 2-D mediolateral oblique (MLO) and craniocaudad (CC) views of both breasts were obtained. CAD: Full Field Digital Mammography with Computer Added Detection was performed. COMPARISON: Comparison is made with prior study dated July 20, 2015. FINDINGS: Breast Composition: There are scattered areas of fibro glandular density. There are no dominant masses or suspicious calcifications. No other significant abnormalities are identified. There has been no significant change since the prior study. HPBI/SCREENING MAMM (CAD), BILAT IMPRESSION: Stable bilateral screening mammogram. Yearly follow-up mammogram recommended. (A) ASSESSMENT CATEGORY: BIRADS Category 1: Negative. A letter regarding these results will be sent to the patient by the facility within 30 days. Approximately 10% of breast cancers are not detec gee by mammography. A normal mammogram should not delay biopsy of a clinically suspicious abnormality. [id number] Electronically Signed: Pola García MD at 10:21 EDT Tel [phone], Serv ice support , CC: Cher Sampson Commercial Construction Superintendent: Signed 04-Mar-2016 PT Discharge Summary Result: Comments: See Note; NOTES: [facility] Physical Therapy [facility] [address] [place] [address]. [address] [place] [address] Fax REHABILITATION SERVICES DISCHAR GE SUMMARY MR#: [id number] Acct: [id number] Name: VONNIE GILBERT Rep #: [id number] : 1965 50 From: Susu Malin Referring : Cher Sampson Status: DIS RCR Eval Date: Discharge Date: 01/18/16 DATE OF SERVICE: DATE OF DISCHARGE: February 22, 2016. REFERRING PHYSICIAN: Dr. Sampson. The patient was seen for massotherapy evaluation on March 30, 2015 with a diagnosis of having joint pain especially in her neck. The patient was treated with 10 sessions of massage consisting of 1 hour treatment to the head, neck, shoulder and back area. Her goals of treatment were met as she reporte d that massage helped her greatly throughout the year 2015. At this time, I am discharging the patient from our care at the [facility] facility. Susu Malin LMT T: REG JOB: [id number] &#60 ;Electronically signed by Susu Malin > 03/04/16 0643 CC: Cher Sampson Signed 28-Feb-2016 PT Discharge Summary Result: Comments: See Note; NOTES: [facility] Therapy [address] [place], [place] [id number] Fax REHABILITATION SERVICES DISCHAR GE SUMMARY MR#: [id number] Acct: [id number] Name: VONNIE GILBERT Rep #: [id number] : 1965 50 From: Susu Malin Referring Dr.: Cher Sampson Status: DIS RCR Eval Date: Discharge Date: 11/29/15 DATE OF SERVICE: DATE OF DISCHARGE: February 22, 2016. REFERRING PHYSICIAN: Dr. Sampson. The patient was seen for massotherapy evaluation on March 30, 2015 with a diagnosis of having joint pain especially in her neck. The patient was treated with 10 sessions of massage consisting of 1 hour treatment to the head, neck, shoulder and back area. Her goals of treatment were met as she reporte d that massage helped her greatly throughout the 2015. At this time, I am discharging the patient from our care at the [facility] facility. Susu Malin LMT T: REG JOB: [id number] &#60 ;Electronically signed by Susu Malin > 02/28/16 1658 CC: Cher Sampson Signed 29-Jan-2016 PT D/C of Non Returning Pt (1) Result: Comments: See Note; NOTES: [facility] Physical Therapy [address] [place] [address] Fax REHABILITATION SERVICES DISCHAR GE SUMMARY MR#: [id number] Acct: [id number] Name: VONNIE GILBERT Rep #: [id number] : 1965 50 From: Noam Martinez PT, Cert. T, OCS Referring Dr.: Cher Sampson Status: REG RCR Insurance: [facility] [employer] [facility] HP - Discharge Summary (1) - Patient Information VONNIE GILBERT was seen in my office for initial evaluation on 11/19/15. The following Plan of Care was established fo r this patient: Initial Frequency: 2x /Week Initial Duration: 5 weeks - Anticipated Interventions Patient/Client Instruction: Educate patient on: Condition, Plan of Care For the Purpose of:: To improv e decision making, To facilitate caregiver knowledge Therapeutic Exercise to Include: Strength training, Postural training For the Purpose of:: To improve muscle performance and motor function Manual Th erapy Techniques to Include: Massage, Mobilization, Manipulation, Passive ROM, Functional dry needling For the Purpose of:: To decrease pain, To increase ROM Thermo therapy (hot pack): Yes This patient was last seen in our office 12/04/15. Pertinent comments regarding their Physical therapy will appear below: This patient was seen for PT for cervical HNP, thus is d/c from PT At this point I will be discontinuing this patient from physical therapy. I would be happy to see this patient again in the future if found appropriate by the physician. Thank you! Noam Martinez PT, <Electronica lly signed by Noam Martinez PT, Cert. ARCENIO, OCS> 01/29/16 0926 CC: Cher Sampson BRIGITTE Signed 07-Dec-2015 Spine Cervical (Routine) Result: Comments: See Note; NOTES: [facility] Imaging Services [address] [place] [address] Verdana 4d Spine Cervical (Routine) MR#: [id number] Acct: [id number] Name: NOHEMI GILBERT Rep #: [id number] : 1965 F 49 From: Kendal Cox DO PCP: Cher Sampson Status: REG CLI Study: Spine Cervical (Routine) Date of Exam: 12/07/15 Exam# [id number] Ordering Dr: Cher Sampson Y: MRI CERVICAL SPINE WITHOUT CONTRAST REASON FOR EXAM: Female, 49 years old. Neck pain radiating to shoulder blades causing weakness with lifting. No specific injury. Symptoms for 6 years TECHNIQUE: Standardized fat and water weighted pulse sequences were obtained in the sagittal and axial planes. COMPARISON: None FINDINGS: Normal foramen magnum and brainstem-c ervical cord junction. Normal craniovertebral junction. Normal anterior atlantoaxial articulation. Normal odontoid process. There is straightening of the normal cervical lordosis. Normal vertebral bodi es and posterior osseous elements. C2-3: Normal endplates. Normal disc height, signal and less than 1 mm broad-based posterior disc bulging image 138 series 7. Normal central canal and intervertebral n eural foramina. C3-4: Normal endplates. Normal disc height, signal and small central disc herniation of the protrusion type measuring 1.6 mm AP and 4 mm transverse image 114 series 7. Normal central ca nal and intervertebral neural foramina. C4-5: Normal endplates. Normal disc height, signal and small central disc herniation of the protrusion type measuring 1.6 mm AP and 5.2 mm transverse image 89 se maegan 7. Normal central canal and intervertebral neural foramina. C5-6: Mild spondylosis of the endplates. Arthrosis of the right greater than left uncovertebral joints. Mild arthrosis of the facet join ts. Partial loss of disc height, signal and circumferential disc osteophyte complex. Mild narrowing of the central canal, 9 mm AP. Moderate narrowing of the right and minimal narrowing of the left inter vertebral neural foramina. C6-7: Mild spondylosis of the endplates. Partial loss of disc height and signal with broad based posterior disc herniation of the extrusion type demonstrating a subligamentou s mushroom cap configuration image 8 series 2. The disc measures 3 mm AP to the right of midline and 2.5 mm AP left of midline. There is slight extrinsic compression upon the ventral margin of the cervi chavez cord at the level of the disc, to the right of midline image 44 series 7. There is narrowing of the central canal to 6.1 mm slightly to the right of midline. Mild narrowing of the bilateral interver tebral neural foramina. C7-T1: Normal endplates. Normal disc height, signal and morphology. Normal central canal and intervertebral neural foramina. Normal cervical cord. Normal visualized soft tissu e structures. MRI/Spine Cervical (Routine) IMPRESSION: Fairly large disc herniation with central canal compromise at C6-7 as noted above. Cervic al spondylosis with mild narrowing of the central canal and right greater than left foraminal stenosis at C56. Elsewhere very small central disc herniations without central canal or foraminal compromise . Electronically Signed: Kendal Cox DO at 1:40 EDT Tel , Service support [phone], CC: Cher Sampson Commercial Construction Superintendent: Signed 19-Nov-2015 Inital Evaluation (1) - PT Result: Comments: See Note; NOTES: [facility] Physical Therapy [address] [place] [address] Fax REHABILITATION SERVICES INITIA L EVALUATION MR#: [id number] Acct: [id number] Name: VONNIE GILBERT Rep #: [id number] : 1965 49 From: Noam Osman Referring Dr.: Cher Sampson Status: REG RCR Insurance: [facility] [employer] [facility] Patient's Visit Information VONNIE GILBERT is a 49 year old F referred to Physical Therapy by Cher Sampson with a diagnosis of Lower cervical disc herniation. Date of Evaluation: 6 Physical Therapist: Noam Osman - Visit Plan Frequency: 2x /Week Duration: 5 weeks Plan: Patient will receive skilled PT services inclusive of therapeutic exercises, manual therapy, NMR, and modal ities to improve cervical stabilization, thoracic mobility, and normalize postural deficits. - Subjective Subjective: Patient reports pain in the lower neck mostly in the center but occasionally down i nto the right shoulder blade. Patient states that she has managed her pain with previous physical therapy and HEP activities occasionally, as well as receiving an occasional massage. Patient reports dif ficulty sleeping, patient was riding bike for exercise - Pain Bilateral Neck Pain Intensity (Out of 10): 5 Pain Intensity Range: 3, 8 Comment: Burning diffusing from CT junction through the shoulder blades - Objective Observation: mildly flattened thoracic spine w/moderate forward hinge at the CT junction region. Moderate forward head/shoulder posture. Left scapula rests mildly elevated and protr acted compared to the right side. Palpation: moderate soft tissue restrictions TTP in bilateral upper trapezius and levator scapulae. No tenderness to palpation along the spinous/ transverse process thr oughout lower cervical region. Cervical AROM: Flexion: 50 degrees ( reproduction of CT junction pain). Extension: WNL (pain relief reported). Rotation: L: WNL R: 65 degrees (reproduction of pain). Shoul get strength and AROM are WNL bilaterally in all planes of motion. Patient reports relief with cervical distraction in supine position. Moderate joint hypomobility w/thoracic spine PA mobilizations -- p atient reports relief with thoracic manipulation. - Special Tests C/S Radiculapathy - Left Upper limb tension test: Negative C/S Radiculapathy - Right Upper limb tension test: Negative C/S Radiculapath y - Left Spurlings: Negative C/S Radiculapathy - Right Spurlings: Negative C/S Radiculapathy - Left Cervical distraction: Negative C/S Radiculapathy - Right Cervical distraction: Negative C/S Radiculapa thy - Left Relief test: Positive C/S Radiculapathy - Right Relief test: Positive Sharp Alycia: Negative Vertebral Artery Test: Negative Alar Ligament Test: Negative Cervical Sitting: Protrusion - Sympto ms During Testing: Increases Cervical Sitting: Retraction - Mechanical Response: Increases motion Cervical Sitting: Retraction - Symptoms During Testing: Decreases - Goals Goal 1:: Patient will demonst rate no greater than 1/10 neck pain with cervical flexion and right rotation movements. Goal Time Frame: 2-4 Weeks Goal 2:: Patient will tolerate prolonged sitting activities with no greater than 1/10 n jerel discomfort maintaining good posture with minimal cueing. Goal Time Frame: 2-4 Weeks Goal 3:: Patient will be compliant w/HEP for cervical stabilization and postural re-training. Goal Time Frame: 4-6 Weeks - Rehabilitation Potential Physical Therapy Diagnosis: Cervical instability, cervical flexion/right rotation compressive syndrome Rehabilitation Potential: Good - Anticipated Interventions Liat ent/Client Instruction: Educate patient on: Condition, Plan of Care For the Purpose of:: To improve decision making, To facilitate caregiver knowledge Therapeutic Exercise to Include: Strength training, Postural training For the Purpose of:: To improve muscle performance and motor function Manual Therapy Techniques to Include: Massage, Mobilization, Manipulation, Passive ROM, Functional dry needling F or the Purpose of:: To decrease pain, To increase ROM Thermo therapy (hot pack): Yes Thank you for the opportunity to evaluate your patient. For Medicare and Medicare HMO plans, please review the p cathy of care and approve it. It will need to be FAXED BACK to us at [phone] for Medicare purposes. Please let me know if there are questions or concerns regarding this plan of care. Physician Si gnature: Date: <Electronically signed by Noam Osman > 11/19/15 1129 CC: Cher Sampson KARLEY Sign ed For Medicare only, by signing this I certify the plan of care. Physicians Signature Date 16-Nov-2015 Cerv Spine 4 or 5 Views Result: Comments: See Note; NOTES: [facility] Imaging Services [address] [place] [address] Verdana 4d Cerv Spine 4 or 5 Views MR#: [id number] Acct: [id number] Name: VONNIE GILBERT Rep #: [id number] : 1965 F 49 From: Pola García MD PCP: Cher Sampson Status: REG CLI Study: Cerv Spine 4 or 5 Views Date of Exam: 11/16/15 Exam# [id number] Ordering Dr: Cher Sampson: X-RAY - CERVICAL SPINE REASON FOR EXAM: Female, 49 years old. Neck pain. TECHNIQUE: 5 view(s) of the cervical spine were obtained including oblique views. COMPARISON: None FINDINGS: Normal anterior atlantoaxial articulation. Normal odontoid process. There is straightening of the normal cervical lordosis. Mild to moderate degree of disc space narrowing at the C6-C7 level with anterior spondylosis. Normal visualized intervertebral neuroforamina. The soft tissue structures are unremarkable. RAD/Cer v Spine 4 or 5 Views IMPRESSION: Disc space narrowing at the C6-C7 level with anterior spondylosis. Electronically Signed: Pola García MD at 14:54 EDT Tel [phone], Service support [phone], CC: Cher Sampson Commercial Construction Superintendent: Signed 01-Aug-2015 Inital Evaluation - PT Result: Comments: See Note; NOTES: [facility] [address] [place] [address]. [address] [place], [place] [address] Fax REHABILITATION SE RVICES INITIAL EVALUATION MR#: [id number] Acct: [id number] Name: VONNIE GILBERT Cruz Rep #: [id number] : 1965 49 From: Susu Garcia Referring : Cher Sampson Status: REG RCR Insura nce: [facility] Eval Date: DATE OF SERVICE: 03/30/2015 REFERRING PHYSICIAN: Dr. 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 Sampson with a diagnosis of having joint pain. She presents today with the symptoms of having neck and shou lder pain primarily within her left shoulder. She does state that the tension is always tight within both shoulders though it goes back and forth from left to right. She has reported that her headache s have been becoming more frequent and she thinks this could be related to her herniated disk. She rates her overall health to be in good condition with hardly no limitations throughout daily activiti es and her goals of treatment are to decrease her pain. OBJECTIVE: The first treatment consisted of 1-hour massage to the head, neck, shoulder and back area using deep pressure. Upon observation, I found that she had high tension throughout her suboccipital muscles, levator scapula muscles, scalene muscles, trapezius muscles and sternocleidomastoid muscles, pectoral muscles and rhomboid muscles . I also found that she had knots all throughout her trapezius and along the medial borders of her scapula and that her cervical through lumbar paraspinals were very tight and ropey. She did have res tricted range of motion with her neck due to the tension. ASSESSMENT: The patient easily relaxed and was able to tolerate the deep pressure. She was able to increase her range of motion after the tr eatment. I feel that she is a good candidate for massotherapy at this time due to the fact the massage has helped her greatly in the past. PLAN: The plan of care is reviewed with the patient and the patient is to be seen on an as needed basis throughout the 2015 for a total of 10 one-hour sessions. Susu Garcia LMT T: REG JOB: [id number] <Electronically signed by Susu Garcia > 08/01/15 1909 CC: Signed For Medicare only, by signing this I certify the plan of care. Physicians Signature Date 20-Jul-2015 Bilat Scrn Digital AND CAD Result: Comments: See Note; NOTES: [facility] Imaging Services [address] [place] [address] Paulinofarhad 4d Bilat Scrn Digital AND CAD MR#: [id number] Acct: [id number] Name: VONNIE GILBERT Rep #: [id number] : 1965 F 49 From: Pola García MD PCP: Cher Sampson Status: REG CLI Study: Bilat Scrn Digital AND CAD Date of Exam: 07/20/15 Exam# [id number] Joellein g Dr: Cher Sampson MAMMOGRAPHY - BILATERAL SCREENING REASON FOR EXAM: Female, 49 years old. Routine annual screening examination. PERTINENT HISTORY: Aunt with breast cancer. TECHNIQUE: Digital bilateral breast tomosynthesis (3-D mammographic acquisition) in the CC and MLO projections. Synthesized 2-D images (C-View reconstruction from tomosynthesis acquisition) providing bilateral breast CC and MLO views. Mediolateral oblique (MLO) and craniocaudad (CC) views of both breasts were obtained. CAD: Full Field Digital Mammography with Computer Added Detection was performed. COMPARISON: C omparison is made with prior outside examination dated March 11, 2006. FINDINGS: Breast Composition: There are scattered areas of fibroglandular density. The re are no dominant masses or suspicious calcifications. No other significant abnormalities are identified. IMPRESSION: Stable bilateral screening mammogram. Yea rly follow-up mammogram recommended. (A) ASSESSMENT CATEGORY: BIRADS Category 1: Negative. A letter regarding these results will be sent to the patient by the facility within 30 days. Approximately 10% of breast cancers are not detected by mammography. A normal mammogram should not delay biopsy of a clinically suspicious abnormality. [id number] Electronic ally Signed: Pola García MD at 12:25 EDT Tel [phone], Service support [phone], CC: Cher Sampson Commercial Construction Superintendent: Signed 05-Mar-2015 PT Discharge Summary Result: Comments: See Note; NOTES: [facility] [address] [place] [address]. [address] [place], [place] [address] Fax REHABILITATION SE RVICES DISCHARGE SUMMARY MR#: [id number] Acct: [id number] Name: VONNIE GILBERT Rep #: [id number] : 1965 49 From: Susu Garcia Referring : Cher Sampson Status: DIS RCR Eval Da te: Discharge Date: 02/05/15 DATE OF SERVICE: REFERRING PHYSICIAN: Dr. Cher Sampson. The patient was seen for massotherapy evaluation on March 17, 2014 with a diagnosis of having neck pain. T he patient was treated with 8 sessions of massage consisting of 1 hour treatments to the upper body. Her goals of treatment were met as she reported that massage helped her greatly throughout the year 2014. At this time, I am discharging the patient from our care at the [facility] facility. Susu Garcia LMT T: NTS JOB: [id number] <Electronically signed by Susu Garcia & #62; 03/05/15 1201 CC: Cher Sampson Signed 24-Apr-2014 Inital Evaluation - PT Result: Comments: See Note; NOTES: [facility] Physical Therapy [address] [place], [place] [address] Fax REHABILITATION SERVICES INITIAL EVALUATION MR#: [id number] Acct: [id number] Name: VONNIE GILBERT Rep #: [id number] : 1965 48 From: Susu Garcia Referring DrAshutosh: Cher Sampson Status: DIS RCR Insurance: [facility] [employer] Eval Date: DATE OF SERVICE: 03/17/2014 REFERRING PHYSICIAN: Dr. Cher Sampson. 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 She was referred to the [facility] facility for massotherapy evaluation by Dr. Sampson with a diagnosis of having neck and shoulder pa in. She presents today with the symptoms of high tension throughout her neck and shoulders, where she also complains of having occasional burning sensation throughout her shoulder blades. The sympto ms have been present for years and has commenced due to an unknown reason though she does seem to have more tension after working long hours and picking up extra hours with work. OBJECTIVE: The f irst treatment consisted of 1-hour massage to the head, neck, shoulder and back area using deep pressure. Upon observation, I found that she had high tension in her cervical spine along with her leva tor scapula muscles, scalene muscles and trapezius muscles. I found that she had large knots around the medial borders of her scapulas. I also found that her cervical through lumbar paraspinals were tight and ropey. ASSESSMENT: The patient easily relaxed and is able to tolerate the deep pressure throughout the whole massage. I was able to achieve good releases overall using myofascial release techniques, precision neuromuscular treatment techniques, muscle stripping and muscle stretching. I feel that she is a good candidate for massotherapy at this time due to the fact that massage medina s helped her greatly in the past. PLAN: The plan of care is reviewed with the patient and the patient is to be seen on an as-needed basis throughout the year 2014 for a total of one-hour sessions. Susu Garcia LMT T: REG JOB: [id number] <Electronically signed by Susu Garcia > 04/24/14 1107 CC: Signed For Medicare only, by sign ing this I certify the plan of care. Physicians Signature Date 10-Mar-2014 PT Discharge Summary Result: Comments: See Note; NOTES: [facility] [address] [facility] [place] [address] Fax REHABILITATION SERVICES DISCHARGE SUMMARY MR#: [id number] Acct: [id number] Name: VONNIE GILBERT Rep #: [id number] : 1965 48 From: Susu Garcia Referring : Cher Sampson Status: DIS RCR Eval Date: Disc harge Date: 05/27/13 DATE OF SERVICE: REFERRING PHYSICIAN: Dr. Sampson. The patient was seen for massotherapy evaluation on May 13 with a diagnosis of having neck and shoulder pain. The patie nt was treated with 2 sessions of massage consisting of 1 hour treatment to the upper body focusing on the neck and shoulder area. The patient reported that her goals of treatment were met as she wa s able to decrease her pain throughout the year of 2013, but the patient was unable to schedule more appointments throughout the year. She was very happy with her treatment. At this time, I am disc harging the patient from our care at the [facility] facility. Susu Garcia LMT T: REG JOB: [id number] <Electronically signed by Susu Garcia > 03/10/14 1104 CC: Signed 16-Jun-2013 Inital Evaluation - PT Result: Comments: See Note; NOTES: [facility] Physical Therapy [address] [place] [id number] Fax REHABILITATION SERVICES INITIAL EVALUATION MR#: [id number] Acct: [id number] Name: VONNIE GILBERT Rep #: [id number] : 1965 47 From: Susu Garcia Referring Dr.: Cher Sampson Status: DIS RCR Insurance: [facility] Eval Date: DATE OF SERVICE: 05/25/2013 REFERRING PHYSICIAN: Dr. Cher Sampson. 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 for a massotherapy evaluation by Dr. Sampson with a diagnosis of having neck pain. She presents today with having the symptoms of pain within her neck and shoulder areas. She reports that the pain within her shoulders is a burning sensation. She reports that the pain is increasing since her last treatment of massage. These symptoms have been present for years , but has been under control with having massage treatments in the past. She rates her overall health being in good condition with no limitations during daily ac tivities. Her goals of treatment are to decrease her tension in her neck and shoulders, and decrease the burning sensation. Upon observation, I found that the patient had high tension throughout the head, neck and shoulder area. OBJECTIVE: The first treatment consisted of a 1-hour massage to the upper body. Throughout the massage, I found that she had tension throughout her suboccipital muscl es, levator, scapular muscles, trapezius muscles, and rhomboid muscles. I found that she had a large knot along the medial borders of her scapula. Her cervical through lumbar paraspinals were very tight and ropey. ASSESSMENT: The patient easily relaxed and was able to tolerate deep pressure. I was able to achieve a good release overall using myofascial release techniques, precision neuromus cular treatment techniques, muscle stripping and muscle stretching. I feel that she is a good candidate for massotherapy at this time due to the fact that massage has helped her greatly in the past . PLAN: The plan of care is reviewed with the patient and the patient is to be seen on an as needed basis throughout the year 2013 for a total of ten 1- hour sessions. Susu Garcia LMT T : REG JOB: [id number] <Electronically signed by Susu Garcia > 06/16/13 1650 CC: Signed For Medicare only, by signing this I certify the plan of c are. Physicians Signature Date 19-Feb-2013 PT Discharge Summary Result: Comments: See Note; NOTES: [facility] Physical Therapy [address] [place] [address] Fax REHABILITATION SERVICES DISCHARGE SUMMARY MR#: [id number] Acct: [id number] Name: MARTINVONNIE Arroyo Rep #: [id number] : 1965 47 From: Susu Garcia Referring : Cher Sampson Status: PRE RCR Eval Date: Disch arge Date: DATE OF SERVICE: 02/18/2013 REFERRING PHYSICIAN: Dr. Cher Sampson The patient was seen for a massotherapy evaluation on April 07, 2012 with a diagnosis of having neck and shoulder pain. The patient was treated with 8 sessions of massage consisting of 1 hour treatment to the upper body using deep pressure. Her goals of treatment were met as she reported that massage helped he r greatly to decrease her pain throughout the year 2012. At this time, I am discharging the patient from our care at the [facility]. Susu Garcia LMT T: NTS JOB: [id number] &amp ;#60;Electronically signed by Susu Garcia > 02/19/13 1043 CC: * Signed 04-Feb-2013 Chest PA and Lateral Result: Comments: See Note; NOTES: [facility] Imaging Services [address] [place] [address] Radiology Report MR#: [id number] Acct: [id number] Name: VONNIE GILBERT Rep #: [id number] : 1965 F 47 From: Pola García MD PCP: [facility] Study: Chest PA and Lateral Date of Exam: 02/04/13 Exam# [id number] Ordering Dr: Cher Sampson STUDY: X-RAY CHEST JOSELITO SON FOR EXAM: Female, 47 years old. Right-sided chest tightness. TECHNIQUE: PA and lateral views of the chest. COMPARISON: Comparison is made with prior study dated January 16, 2009. FINDINGS: The lungs are clear and expanded. Calcified old granulomatous disease. There is no demonstrated pleural abnormality. Normal size heart. Normal mediastinum and hil a. Normal visualized pulmonary arteries. Normal visualized aortic arch and descending thoracic aorta. Normal visualized thoracic spine. Normal visualized ribs, clavicles, and shoulders. There is no demonstrated abnormality of the visualized soft tissue structures of the upper abdomen. IMPRESSION: No acute abnormality is seen. Electronically Signed: Sameer García M.D. at 11:50 EST , Service support [phone], CC: Cher Sampson Commercial Construction Superintendent: Signed Family History Unknown Family Member Name Dates Details Brother 1 Comments: In good health, HTN Status: Active Father Comments: In good health, HTN Status: Active Mother Comments: Asthma, In good health - HTN Status: Active Negative Family History of: Comments: HTN, parents, sibling Status: Active Social History Name Dates Details Alcohol Use Comments: Occasional alcohol use Status: Active Caffeine Use Comments: 2 cups coffee Status: Active Exercise History Comments: Light, walking Status: Active 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 Status: Active Tobacco use: Never smoker. Status: Inactive Tobacco use: Never smoker. Status: Inactive Tobacco use: Never smoker. Status: Inactive Smoking Status Name Dates Details Never smoker Vital Signs Date Test Result Details :18 Temperature 96.8 f Comments: Method: Temporal Pulse 80 /min Comments: Pattern: Regular Respiration Rate 16 /min Comments: Pattern: Unlabored O2 SAT 95 % Comments: Room air BP Systolic 138 mm[Hg] Comments: Patient Position: Sitting; Cuff Location: Left Arm; Cuff Size: Standard BP Diastolic 88 mm[Hg] Comments: Patient Position: Sitting; Cuff Location: Left Arm; Cuff Size: Standard Weight 240.5 lb Height 69 in Body Mass Index Calculated 35.52 kg/m2 Body Surface Area Calculated 2.23 m2 :12 Weight 238.375 lb Height 69 in Body Mass Index Calculated 35.2 kg/m2 Body Surface Area Calculated 2.23 m2 [id number]:11 Temperature 97 f Comments: Method: Temporal Pulse 101 /min Comments: Pattern: Regular Respiration Rate 18 /min Comments: Pattern: Unlabored O2 SAT 97 % Comments: Room air BP Systolic 152 mm[Hg] Comments: Patient Position: Sitting; Cuff Location: Left Arm; Cuff Size: Standard BP Diastolic 88 mm[Hg] Comments: Patient Position: Sitting; Cuff Location: Left Arm; Cuff Size: Standard Weight 238.375 lb Height 69 in Body Mass Index Calculated 35.2 kg/m2 Body Surface Area Calculated 2.23 m2 :34 Temperature 96.9 f Pulse 87 /min Comments: Pattern: Regular Respiration Rate 17 /min Comments: Pattern: Unlabored O2 SAT 96 % Comments: Room air BP Systolic 122 mm[Hg] Comments: Patient Position: Sitting; Cuff Location: Left Arm; Cuff Size: Standard BP Diastolic 84 mm[Hg] Comments: Patient Position: Sitting; Cuff Location: Left Arm; Cuff Size: Standard Weight 238.375 lb Height 69 in Body Mass Index Calculated 35.2 kg/m2 Body Surface Area Calculated 2.23 m2 :31 Temperature 97.9 f Pulse 91 /min Comments: Pattern: Regular Respiration Rate 17 /min Comments: Pattern: Unlabored O2 SAT 96 % Comments: Room air BP Systolic 118 mm[Hg] Comments: Patient Position: Sitting; Cuff Location: Left Arm; Cuff Size: Standard BP Diastolic 76 mm[Hg] Comments: Patient Position: Sitting; Cuff Location: Left Arm; Cuff Size: Standard Weight 229.125 lb Height 69 in Body Mass Index Calculated 33.84 kg/m2 Body Surface Area Calculated 2.19 m2 :37 Temperature 97.1 f Pulse 86 /min Comments: Pattern: Regular Respiration Rate 18 /min Comments: Pattern: Unlabored O2 SAT 96 % Comments: Room air BP Systolic 118 mm[Hg] Comments: Patient Position: Sitting; Cuff Location: Left Arm; Cuff Size: Standard BP Diastolic 80 mm[Hg] Comments: Patient Position: Sitting; Cuff Location: Left Arm; Cuff Size: Standard Weight 235.375 lb Height 69 in Body Mass Index Calculated 34.76 kg/m2 Body Surface Area Calculated 2.21 m2 :31 Temperature 97.4 f Pulse 85 /min Comments: Pattern: Regular Respiration Rate 16 /min Comments: Pattern: Unlabored O2 SAT 95 % Comments: Room air BP Systolic 116 mm[Hg] Comments: Patient Position: Sitting; Cuff Location: Left Arm; Cuff Size: Standard BP Diastolic 72 mm[Hg] Comments: Patient Position: Sitting; Cuff Location: Left Arm; Cuff Size: Standard Weight 235.375 lb Height 69 in Body Mass Index Calculated 34.76 kg/m2 Body Surface Area Calculated 2.21 m2 :19 Temperature 97.9 f Pulse 86 /min Comments: Pattern: Regular Respiration Rate 17 /min Comments: Pattern: Unlabored O2 SAT 96 % Comments: Room air BP Systolic 118 mm[Hg] Comments: Patient Position: Sitting; Cuff Location: Left Arm; Cuff Size: Standard BP Diastolic 82 mm[Hg] Comments: Patient Position: Sitting; Cuff Location: Left Arm; Cuff Size: Standard Weight 235.375 lb Height 69 in Body Mass Index Calculated 34.76 kg/m2 Body Surface Area Calculated 2.21 m2 :58 Temperature 97.5 f Pulse 103 /min Comments: Pattern: Regular Respiration Rate 18 /min Comments: Pattern: Unlabored O2 SAT 95 % Comments: Room air BP Systolic 156 mm[Hg] Comments: Patient Position: Sitting; Cuff Location: Left Arm; Cuff Size: Standard BP Diastolic 100 mm[Hg] Comments: Patient Position: Sitting; Cuff Location: Left Arm; Cuff Size: Standard Weight 231.375 lb Height 69 in Body Mass Index Calculated 34.17 kg/m2 Body Surface Area Calculated 2.2 m2 :47 Temperature 97 f Pulse 110 /min Comments: Pattern: Regular Respiration Rate 16 /min Comments: Pattern: Unlabored O2 SAT 96 % Comments: Room air BP Systolic 138 mm[Hg] Comments: Patient Position: Sitting; Cuff Location: Left Arm; Cuff Size: Standard BP Diastolic 86 mm[Hg] Comments: Patient Position: Sitting; Cuff Location: Left Arm; Cuff Size: Standard Weight 231.375 lb Height 69 in Body Mass Index Calculated 34.17 kg/m2 Body Surface Area Calculated 2.2 m2 :01 Temperature 97.3 f Pulse 93 /min Comments: Pattern: Regular Respiration Rate 18 /min Comments: Pattern: Unlabored O2 SAT 97 % Comments: Room air BP Systolic 120 mm[Hg] Comments: Patient Position: Sitting; Cuff Location: Left Arm; Cuff Size: Standard BP Diastolic 84 mm[Hg] Comments: Patient Position: Sitting; Cuff Location: Left Arm; Cuff Size: Standard Weight 230 lb Height 69 in Body Mass Index Calculated 33.96 kg/m2 Body Surface Area Calculated 2.19 m2 :32 Temperature 98.1 f Comments: Method: Temporal Pulse 104 /min Comments: Pattern: Regular Respiration Rate 17 /min Comments: Pattern: Unlabored O2 SAT 98 % Comments: Room air BP Systolic 122 mm[Hg] Comments: Patient Position: Sitting; Cuff Location: Left Arm; Cuff Size: Standard BP Diastolic 78 mm[Hg] Comments: Patient Position: Sitting; Cuff Location: Left Arm; Cuff Size: Standard Weight 226.8 lb Height 69 in Body Mass Index Calculated 33.49 kg/m2 Body Surface Area Calculated 2.18 m2 :02 Temperature 99.6 f Comments: Method: Oral Pulse 90 /min Comments: Pattern: Regular O2 SAT 96 % Comments: Room air BP Systolic 120 mm[Hg] Comments: Patient Position: Sitting; Cuff Location: Left Arm; Cuff Size: Standard BP Diastolic 80 mm[Hg] Comments: Patient Position: Sitting; Cuff Location: Left Arm; Cuff Size: Standard Weight 229.25 lb Height 69 in Body Mass Index Calculated 33.85 kg/m2 Body Surface Area Calculated 2.19 m2 [id number] Pulse 90 /min Comments: Pattern: Regular Respiration Rate 16 /min Comments: Pattern: Unlabored O2 SAT 97 % Comments: Room air BP Systolic 119 mm[Hg] Comments: Patient Position: Sitting; Cuff Location: Left Arm; Cuff Size: Standard BP Diastolic 90 mm[Hg] Comments: Patient Position: Sitting; Cuff Location: Left Arm; Cuff Size: Standard Weight 229.25 lb Height 69 in Body Mass Index Calculated 33.85 kg/m2 Body Surface Area Calculated 2.19 m2 :01 Temperature 98.6 f Comments: Method: Oral Pulse 82 /min Comments: Pattern: Regular Respiration Rate 18 /min O2 SAT 97 % Comments: Room air BP Systolic 126 mm[Hg] Comments: Patient Position: Sitting; Cuff Location: Left Arm; Cuff Size: Standard BP Diastolic 78 mm[Hg] Comments: Patient Position: Sitting; Cuff Location: Left Arm; Cuff Size: Standard Weight 208.25 lb Height 69 in Body Mass Index Calculated 30.75 kg/m2 Body Surface Area Calculated 2.1 m2 :04 Temperature 97.3 f Comments: Method: Temporal Pulse 78 /min Comments: Pattern: Regular Respiration Rate 18 /min Comments: Pattern: Unlabored BP Systolic 130 mm[Hg] Comments: Patient Position: Sitting; Cuff Location: Left Arm; Cuff Size: Standard BP Diastolic 88 mm[Hg] Comments: Patient Position: Sitting; Cuff Location: Left Arm; Cuff Size: Standard Weight 208.25 lb Height 69 in Body Mass Index Calculated 30.75 kg/m2 Body Surface Area Calculated 2.1 m2 :57 Temperature 98.2 f Comments: Method: Oral Pulse 88 /min Comments: Pattern: Regular O2 SAT 98 % Comments: Room air BP Systolic 126 mm[Hg] Comments: Patient Position: Sitting; Cuff Location: Left Arm; Cuff Size: Standard BP Diastolic 78 mm[Hg] Comments: Patient Position: Sitting; Cuff Location: Left Arm; Cuff Size: Standard Weight 208.25 lb Height 69 in Body Mass Index Calculated 30.75 kg/m2 Body Surface Area Calculated 2.1 m2 :23 Temperature 97.8 f Comments: Method: Temporal Pulse 80 /min Comments: Pattern: Regular Respiration Rate 16 /min Comments: Pattern: Unlabored BP Systolic 142 mm[Hg] Comments: Patient Position: Sitting; Cuff Location: Left Arm; Cuff Size: Standard BP Diastolic 82 mm[Hg] Comments: Patient Position: Sitting; Cuff Location: Left Arm; Cuff Size: Standard Weight 208.25 lb Height 69 in Body Mass Index Calculated 30.75 kg/m2 Body Surface Area Calculated 2.1 m2 :55 Temperature 98.2 f Comments: Method: Oral Pulse 84 /min Comments: Pattern: Regular Respiration Rate 18 /min Comments: Pattern: Unlabored BP Systolic 140 mm[Hg] Comments: Patient Position: Sitting; Cuff Location: Left Arm; Cuff Size: Standard BP Diastolic 88 mm[Hg] Comments: Patient Position: Sitting; Cuff Location: Left Arm; Cuff Size: Standard Weight 208.25 lb Height 69 in Body Mass Index Calculated 30.75 kg/m2 Body Surface Area Calculated 2.1 m2 :27 Temperature 98.6 f Comments: Method: Oral Pulse 82 /min Comments: Pattern: Regular Respiration Rate 16 /min BP Systolic 118 mm[Hg] Comments: Patient Position: Sitting; Cuff Location: Left Arm; Cuff Size: Standard BP Diastolic 74 mm[Hg] Comments: Patient Position: Sitting; Cuff Location: Left Arm; Cuff Size: Standard Weight 209.1875 lb Height 69 in Body Mass Index Calculated 30.89 kg/m2 Body Surface Area Calculated 2.11 m2 :41 Temperature 98.6 f Comments: Method: Oral Pulse 95 /min Comments: Pattern: Regular Respiration Rate 18 /min O2 SAT 97 % Comments: Room air BP Systolic 132 mm[Hg] Comments: Patient Position: Sitting; Cuff Location: Left Arm; Cuff Size: Standard BP Diastolic 80 mm[Hg] Comments: Patient Position: Sitting; Cuff Location: Left Arm; Cuff Size: Standard Weight 201.4375 lb Height 69 in Body Mass Index Calculated 29.75 kg/m2 Body Surface Area Calculated 2.07 m2 :10 Temperature 98 f Comments: Method: Oral Pulse 88 /min Comments: Pattern: Regular Respiration Rate 16 /min O2 SAT 96 % Comments: Room air BP Systolic 134 mm[Hg] Comments: Patient Position: Sitting; Cuff Location: Left Arm; Cuff Size: Standard BP Diastolic 86 mm[Hg] Comments: Patient Position: Sitting; Cuff Location: Left Arm; Cuff Size: Standard Weight 201.4375 lb Height 69 in Body Mass Index Calculated 29.75 kg/m2 Body Surface Area Calculated 2.07 m2 :18 Temperature 97 f Comments: Method: Oral Pulse 82 /min Comments: Pattern: Regular Respiration Rate 16 /min Comments: Pattern: Unlabored BP Systolic 120 mm[Hg] Comments: Patient Position: Sitting; Cuff Location: Left Arm; Cuff Size: Standard BP Diastolic 78 mm[Hg] Comments: Patient Position: Sitting; Cuff Location: Left Arm; Cuff Size: Standard Weight 194 lb Height 69 in Body Mass Index Calculated 28.65 kg/m2 Body Surface Area Calculated 2.04 m2 :12 Pulse 88 /min Comments: Pattern: Regular Respiration Rate 14 /min Comments: Pattern: Unlabored BP Systolic 134 mm[Hg] Comments: Patient Position: Sitting; Cuff Location: Left Arm; Cuff Size: Large BP Diastolic 98 mm[Hg] Comments: Patient Position: Sitting; Cuff Location: Left Arm; Cuff Size: Large Weight 218 lb Height 69.5 in Body Mass Index Calculated 31.73 kg/m2 Body Surface Area Calculated 2.15 m2 :51 Pulse 70 /min Comments: Pattern: Regular Respiration Rate 17 /min BP Systolic 144 mm[Hg] Comments: Patient Position: Sitting; Cuff Location: Left Arm; Cuff Size: Standard BP Diastolic 78 mm[Hg] Comments: Patient Position: Sitting; Cuff Location: Left Arm; Cuff Size: Standard Weight 209 lb Height 69.5 in Body Mass Index Calculated 30.42 kg/m2 Body Surface Area Calculated 2.12 m2 :34 Temperature 96.1 f Comments: Method: Oral Pulse 88 /min Comments: Pattern: Regular Respiration Rate 18 /min O2 SAT 97 % Comments: Room air BP Systolic 146 mm[Hg] Comments: Patient Position: Sitting; Cuff Location: Left Arm; Cuff Size: Standard BP Diastolic 92 mm[Hg] Comments: Patient Position: Sitting; Cuff Location: Left Arm; Cuff Size: Standard Weight 209 lb Height 69.5 in Body Mass Index Calculated 30.42 kg/m2 Body Surface Area Calculated 2.12 m2 :03 Temperature 98.2 f Comments: Method: Oral Pulse 86 /min Comments: Pattern: Regular Respiration Rate 18 /min O2 SAT 97 % Comments: Room air BP Systolic 158 mm[Hg] Comments: Patient Position: Sitting; Cuff Location: Left Arm; Cuff Size: Standard BP Diastolic 98 mm[Hg] Comments: Patient Position: Sitting; Cuff Location: Left Arm; Cuff Size: Standard Weight 209 lb Height 69.5 in Body Mass Index Calculated 30.42 kg/m2 Body Surface Area Calculated 2.12 m2 :36 Temperature 97.9 f Comments: Method: Oral Pulse 68 /min Comments: Pattern: Regular Respiration Rate 20 /min Comments: Pattern: Unlabored BP Systolic 158 mm[Hg] Comments: Patient Position: Sitting; Cuff Location: Left Arm; Cuff Size: Large BP Diastolic 92 mm[Hg] Comments: Patient Position: Sitting; Cuff Location: Left Arm; Cuff Size: Large Weight 209 lb Height 69.5 in Body Mass Index Calculated 30.42 kg/m2 Body Surface Area Calculated 2.12 m2 :16 Temperature 95.5 f Comments: Method: Oral Pulse 70 /min Comments: Pattern: Regular Respiration Rate 17 /min Comments: Pattern: Unlabored BP Systolic 144 mm[Hg] Comments: Patient Position: Sitting; Cuff Location: Left Arm; Cuff Size: Standard BP Diastolic 84 mm[Hg] Comments: Patient Position: Sitting; Cuff Location: Left Arm; Cuff Size: Standard Weight 209 lb :55 Temperature 97.5 f Comments: Method: Oral Pulse 96 /min Comments: Pattern: Regular Respiration Rate 16 /min Comments: Pattern: Unlabored BP Systolic 140 mm[Hg] Comments: Patient Position: Sitting; Cuff Location: Left Arm; Cuff Size: Large BP Diastolic 82 mm[Hg] Comments: Patient Position: Sitting; Cuff Location: Left Arm; Cuff Size: Large Weight 202 lb :15 Temperature 97 f Comments: Method: Oral Pulse 74 /min Comments: Pattern: Regular Respiration Rate 16 /min Comments: Pattern: Unlabored BP Systolic 146 mm[Hg] Comments: Patient Position: Sitting; Cuff Location: Left Arm; Cuff Size: Standard BP Diastolic 86 mm[Hg] Comments: Patient Position: Sitting; Cuff Location: Left Arm; Cuff Size: Standard Weight 203.1875 lb :33 Temperature 97 f Comments: Method: Oral Pulse 74 /min Comments: Pattern: Regular Respiration Rate 17 /min Comments: Pattern: Unlabored BP Systolic 138 mm[Hg] Comments: Patient Position: Sitting; Cuff Location: Left Arm; Cuff Size: Standard BP Diastolic 84 mm[Hg] Comments: Patient Position: Sitting; Cuff Location: Left Arm; Cuff Size: Standard Weight 203.1875 lb :47 Temperature 97.1 f Pulse 80 /min Comments: Pattern: Regular Respiration Rate 18 /min Comments: Pattern: Unlabored BP Systolic 158 mm[Hg] Comments: Patient Position: Sitting; Cuff Location: Left Arm; Cuff Size: Standard BP Diastolic 92 mm[Hg] Comments: Patient Position: Sitting; Cuff Location: Left Arm; Cuff Size: Standard :27 Temperature 97 f Comments: Method: Oral Pulse 76 /min Comments: Pattern: Regular Respiration Rate 16 /min Comments: Pattern: Unlabored BP Systolic 124 mm[Hg] Comments: Patient Position: Sitting; Cuff Location: Left Arm; Cuff Size: Standard BP Diastolic 80 mm[Hg] Comments: Patient Position: Sitting; Cuff Location: Left Arm; Cuff Size: Standard Weight 200.125 lb :08 Temperature 98.3 f Comments: Method: Oral Pulse 80 /min Comments: Pattern: Regular Respiration Rate 17 /min Comments: Pattern: Unlabored BP Systolic 134 mm[Hg] Comments: Patient Position: Sitting; Cuff Location: Left Arm; Cuff Size: Standard BP Diastolic 84 mm[Hg] Comments: Patient Position: Sitting; Cuff Location: Left Arm; Cuff Size: Standard Weight 200.125 lb :46 Temperature 97 f Comments: Method: Oral Pulse 78 /min Comments: Pattern: Regular Respiration Rate 17 /min Comments: Pattern: Unlabored BP Systolic 130 mm[Hg] Comments: Patient Position: Sitting; Cuff Location: Left Arm; Cuff Size: Standard BP Diastolic 78 mm[Hg] Comments: Patient Position: Sitting; Cuff Location: Left Arm; Cuff Size: Standard Weight 200.125 lb :11 Temperature 97.6 f Comments: Method: Oral Pulse 80 /min Comments: Pattern: Regular Respiration Rate 16 /min Comments: Pattern: Unlabored BP Systolic 124 mm[Hg] Comments: Patient Position: Sitting; Cuff Location: Left Arm; Cuff Size: Standard BP Diastolic 82 mm[Hg] Comments: Patient Position: Sitting; Cuff Location: Left Arm; Cuff Size: Standard Weight 200.125 lb :35 Temperature 95.7 f Comments: Method: Oral Pulse 80 /min Comments: Pattern: Regular Respiration Rate 18 /min Comments: Pattern: Unlabored BP Systolic 136 mm[Hg] Comments: Patient Position: Sitting; Cuff Location: Left Arm; Cuff Size: Standard BP Diastolic 84 mm[Hg] Comments: Patient Position: Sitting; Cuff Location: Left Arm; Cuff Size: Standard Weight 0 lb Height 0 in Head Circumference 0.00 cm :09 Temperature 99.6 f Comments: Method: Oral Pulse 82 /min Comments: Pattern: Regular Respiration Rate 17 /min Comments: Pattern: Unlabored BP Systolic 128 mm[Hg] Comments: Patient Position: Sitting; Cuff Location: Left Arm; Cuff Size: Standard BP Diastolic 82 mm[Hg] Comments: Patient Position: Sitting; Cuff Location: Left Arm; Cuff Size: Standard Weight 178 lb Height 70 in Body Mass Index Calculated 25.54 kg/m2 Body Surface Area Calculated 1.99 m2 Head Circumference 0.00 cm :33 Temperature 97 f Comments: Method: Oral Pulse 84 /min Comments: Pattern: Regular Respiration Rate 16 /min Comments: Pattern: Unlabored BP Systolic 136 mm[Hg] Comments: Patient Position: Sitting; Cuff Location: Left Arm; Cuff Size: Standard BP Diastolic 80 mm[Hg] Comments: Patient Position: Sitting; Cuff Location: Left Arm; Cuff Size: Standard Weight 178 lb Height 70 in Body Mass Index Calculated 25.54 kg/m2 Body Surface Area Calculated 1.99 m2 Head Circumference 0.00 cm :13 Temperature 97.8 f Comments: Method: Oral Pulse 78 /min Comments: Pattern: Regular Respiration Rate 18 /min Comments: Pattern: Unlabored BP Systolic 168 mm[Hg] Comments: Patient Position: Sitting; Cuff Location: Left Arm; Cuff Size: Standard BP Diastolic 102 mm[Hg] Comments: Patient Position: Sitting; Cuff Location: Left Arm; Cuff Size: Standard Weight 178 lb Height 70 in Body Mass Index Calculated 25.54 kg/m2 Body Surface Area Calculated 1.99 m2 Head Circumference 0.00 cm :26 Temperature 97 f Comments: Method: Oral Pulse 72 /min Comments: Pattern: Regular Respiration Rate 18 /min Comments: Pattern: Unlabored BP Systolic 130 mm[Hg] Comments: Patient Position: Sitting; Cuff Location: Left Arm; Cuff Size: Standard BP Diastolic 84 mm[Hg] Comments: Patient Position: Sitting; Cuff Location: Left Arm; Cuff Size: Standard Weight 178 lb Height 70 in Body Mass Index Calculated 25.54 kg/m2 Body Surface Area Calculated 1.99 m2 Head Circumference 0.00 cm :11 Temperature 98 f Comments: Method: Oral Pulse 88 /min Comments: Pattern: Regular Respiration Rate 18 /min Comments: Pattern: Unlabored BP Systolic 126 mm[Hg] Comments: Patient Position: Sitting; Cuff Location: Left Arm; Cuff Size: Standard BP Diastolic 78 mm[Hg] Comments: Patient Position: Sitting; Cuff Location: Left Arm; Cuff Size: Standard Weight 178 lb Height 70 in Body Mass Index Calculated 25.54 kg/m2 Body Surface Area Calculated 1.99 m2 Head Circumference 0.00 cm :30 Temperature 97.8 f Comments: Method: Oral BP Systolic 142 mm[Hg] Comments: Patient Position: Sitting; Cuff Location: Right Arm; Cuff Size: Standard BP Diastolic 98 mm[Hg] Comments: Patient Position: Sitting; Cuff Location: Right Arm; Cuff Size: Standard Weight 178 lb Height 70 in Body Mass Index Calculated 25.54 kg/m2 Body Surface Area Calculated 1.99 m2 Head Circumference 0.00 cm :29 Temperature 97.4 f Comments: Method: Oral Pulse 72 /min Comments: Pattern: Regular Respiration Rate 16 /min Comments: Pattern: Unlabored BP Systolic 132 mm[Hg] Comments: Patient Position: Sitting; Cuff Location: Left Arm; Cuff Size: Standard BP Diastolic 82 mm[Hg] Comments: Patient Position: Sitting; Cuff Location: Left Arm; Cuff Size: Standard Weight 215.5625 lb Height 0 in Head Circumference 0.00 cm :29 Temperature 97 f Comments: Method: Oral Pulse 72 /min Comments: Pattern: Regular Respiration Rate 17 /min Comments: Pattern: Unlabored BP Systolic 124 mm[Hg] Comments: Patient Position: Sitting; Cuff Location: Left Arm; Cuff Size: Standard BP Diastolic 80 mm[Hg] Comments: Patient Position: Sitting; Cuff Location: Left Arm; Cuff Size: Standard Weight 217.4375 lb Height 70 in Body Mass Index Calculated 31.2 kg/m2 Body Surface Area Calculated 2.16 m2 Head Circumference 0.00 cm Results Date Description Value Details [id number] Lipid Profile Comments: [facility] [id number] [place], [place], [id number] VLDL 62 mg/dL (Abnormal) Range: 5-40 LDL 97 mg/dL (Normal) Range: 0-130 HDL 46 mg/dL (Normal) Comments: The drugs N-Acetylcysteine and Metamizole may falselydepress this assay. Reference Range HDL <40 mg/dL Low HDL Cholesterol HDL >or= 60 mg/dL High HDL Cholesterol TRIG 312 mg/dL (Abnormal) Comments: The drugs N-Acetylcysteine and Metamizole may falselydepress this assay.Serum Triglycerides Reference Interval Normal <150 mg/dL Borderline high 150 - 199 mg/dL High 200 - 499 mg/dL Very High > or = 500 mg/dL CHOL 205 mg/dL (Abnormal) Comments: <200 mg/dL Desirable 200-240 mg/dL Borderline >240 mg/dL High Risk [id number] Uric Acid Comments: [facility] [id number] [place], [place], [id number] URIC 5.8 mg/dL (Normal) Range: 2.6-6.0 Comments: The drugs N-Acetylcysteine and Metamizole may falselydepress this assay. [id number] CBC, Employee Comments: [facility] [id number] [place], [place], [id number] Absolute Lymph 2.40 {X10_3/ul} (Normal) Range: 0.83-4.51 Absolute Neut 4.2 {X10_3/uL} (Normal) Range: 2.0-7.7 BASO% 0.4 % (Normal) Range: 0-1 EO% 2.7 % (Normal) Range: 0-5 MONO% 7.7 % (Normal) Range: 0-10 LY% 32.4 % (Normal) Range: 19-41 NEUT% 56.7 % (Normal) Range: 47-70 MPV 10.4 fL (Normal) Range: 6.2-12.0 PLT 251 K/mm3 (Normal) Range: 150-450 RDW SD 41.0 fL (Normal) Range: 35.1-43.9 RDW CV 12.6 % (Normal) Range: 11.6-14.6 MCHC 33.6 {g/gl} (Normal) Range: 32-36 MCH 30.2 pg (Normal) Range: 27.0-32.0 MCV 90.1 fL (Normal) Range: 81-99 HCT 45.3 % (Normal) Range: 37-47 HGB 15.2 g/dL (Abnormal) Range: 12.0-15.0 RBC 5.03 {M/mm3} (Normal) Range: 4.2-5.4 WBC 7.4 K/mm3 (Normal) Range: 4.4-11.0 [id number] Employee Profile Comments: [facility] [id number] [place], [place], [id number] LDH 167 U/L (Normal) Range: 84-246 VLDL 66 mg/dL (Abnormal) Range: 5-40 LDL 70 mg/dL (Normal) Range: 0-130 CHOL:HDL 4.20 (Normal) HDL 43 mg/dL (Normal) Comments: The drugs N-Acetylcysteine and Metamizole may falselydepress this assay. Reference Range HDL <40 mg/dL Low HDL Cholesterol HDL >or= 60 mg/dL High HDL Cholesterol GAP 9 (Normal) Range: 5-15 CO2 25.0 mmol/L (Normal) Range: 21.0-32.0 CL 104 mmol/L (Normal) Range: 98-107 K 4.4 mmol/L (Normal) Range: 3.5-5.1 NA 138 mmol/L (Normal) Range: 136-145 TRIG 329 mg/dL (Abnormal) Comments: The drugs N-Acetylcysteine and Metamizole may falselydepress this assay.Serum Triglycerides Reference Interval Normal <150 mg/dL Borderline high 150 - 199 mg/dL High 200 - 499 mg/dL Very High > or = 500 mg/dL CHOL 179 mg/dL (Normal) Comments: <200 mg/dL Desirable 200-240 mg/dL Borderline >240 mg/dL High Risk D BILI 0.10 mg/dL (Normal) Range: 0.00-0.30 T BILI 0.50 mg/dL (Normal) Range: 0.20-1.00 ALT 34 U/L (Normal) Range: 13-56 ALK P 86 U/L (Normal) Range: 45-117 AST 23 U/L (Normal) Range: 15-37 PHOS 3.0 mg/dL (Normal) Range: 2.5-4.9 CA 8.7 mg/dL (Normal) Range: 8.5-10.1 A/G 0.9 {RATIO} (Normal) Range: 0.9-2.4 GLOB 3.7 g/dL (Normal) Range: 2.2-4.2 ALB 3.5 g/dL (Normal) Range: 3.2-5.0 T PROT 7.2 g/dL (Normal) Range: 6.4-8.2 URIC 7.2 mg/dL (Abnormal) Range: 2.6-6.0 Comments: The drugs N-Acetylcysteine and Metamizole may falselydepress this assay. BUN/CRE 18.4 {RATIO} (Normal) Range: 10-20 EST GFR - AA 89 mL/min (Normal) Comments: GFR Calc EST GFR 73 mL/min (Normal) Comments: Non- GFR Calc CREAT,SERUM 0.87 mg/dL (Normal) Range: 0.55-1.02 Comments: The validity of the calculated GFR AND GFRAA in patients over70 years has not been determined. Clinical correlation isessential. BUN 16 mg/dL (Normal) Range: 7-18 GLU 93 mg/dL (Normal) Range: 74-106 Comments: Please note revised GLUCOSE reference range /02/2018. [id number] Nicotine Urine Drug Screen Comments: [facility] [id number], [address] COT DRG SCREEN Negative (Normal) Comments: Cotinine is the first-stage metabolite of Nicotine. TO BE CONFIRMED (Normal) Comments: CONFIRMATORY TESTING FOR ALL POSITIVE URINE DRUG SCREENRESULTS WILL ONLY BE SENT OUT UPON PHYSICIAN ORDER.The results of Urine Drug Screen methods provide onlypreliminary analytical test results. A more specificalternate chemical method must be used in order to obtain aconfirmed analytical result. Gas chromatography/massspectrometery (GC/MS) is the preferred confirmatory method.Clinical consideration and professional judgement should beapplied to any drug of abuse test result, particularly whenpreliminary positive results are used. [id number] Urinalysis, Employee Comments: [facility] [id number] [place], [place], [phone] LEUK ESTERASE Negative /ul (Normal) OCCULT BLOOD-UR Negative /ul (Normal) NITRITE UR Negative (Normal) UROBILI Normal mg/dL (Normal) PROT DIPSTX Negative mg/dL (Normal) pH UR 5.0 (Normal) Range: 5.0 - 8.0 SP.GR. DIPSTX 1.020 (Normal) Range: 1.002-1.030 KETONE UR Negative mg/dL (Normal) BILIRUBIN URINE Negative mg/dL (Normal) GLUCOSE, UR Normal mg/dL (Normal) CLARITY Clear (Normal) COLOR Yellow (Normal) [id number] CBC W/Diff, Automated Comments: [facility] [id number] [place], [place], [id number] Absolute Lymph 2.41 {X10_3/ul} (Normal) Range: 0.83-4.51 Absolute Neut 6.0 {X10_3/uL} (Normal) Range: 2.0-7.7 IM GRAN % 0.100 % (Normal) Range: 0.0-0.9 Comments: IG% - Immature Granulocytes (promyelocytes, myelocytes andmetamyelocytes) > 1% indicates that a LEFT SHIFT is Present. BASO% 0.2 % (Normal) Range: 0-1 EO% 1.5 % (Normal) Range: 0-5 MONO% 6.1 % (Normal) Range: 0-10 LY% 26.4 % (Normal) Range: 19-41 NEUT% 65.7 % (Normal) Range: 47-70 MPV 10.2 fL (Normal) Range: 6.2-12.0 PLT 255 K/mm3 (Normal) Range: 150-450 RDW SD 41.0 fL (Normal) Range: 35.1-43.9 RDW CV 12.6 % (Normal) Range: 11.6-14.6 MCHC 33.9 {g/gl} (Normal) Range: 32-36 MCH 30.5 pg (Normal) Range: 27.0-32.0 MCV 89.9 fL (Normal) Range: 81-99 HCT 44.5 % (Normal) Range: 37-47 HGB 15.1 g/dL (Abnormal) Range: 12.0-15.0 RBC 4.95 {M/mm3} (Normal) Range: 4.2-5.4 WBC 9.1 K/mm3 (Normal) Range: 4.4-11.0 [id number] Comprehensive Metabolic Profil Comments: [facility] [address] [place], [address] GAP 9 (Normal) Range: 5-15 CO2 24.0 mmol/L (Normal) Range: 21.0-32.0 CL 105 mmol/L (Normal) Range: 98-107 K 4.5 mmol/L (Normal) Range: 3.5-5.1 NA 138 mmol/L (Normal) Range: 136-145 T BILI 0.60 mg/dL (Normal) Range: 0.20-1.00 ALT 28 U/L (Normal) Range: 12-78 ALK P 78 U/L (Normal) Range: 45-117 AST 19 U/L (Normal) Range: 15-37 CA 8.7 mg/dL (Normal) Range: 8.5-10.1 A/G 1.1 {RATIO} (Normal) Range: 0.9-2.4 GLOB 3.3 g/dL (Normal) Range: 2.2-4.2 ALB 3.7 g/dL (Normal) Range: 3.4-5.0 Comments: Please note revised Albumin AND Globulin reference rangeeffective 2016. T PROT 7.0 g/dL (Normal) Range: 6.4-8.2 BUN/CRE 29.3 {RATIO} (Abnormal) Range: 10-20 EST GFR - AA 118 mL/min (Normal) Comments: GFR Calc EST GFR 97 mL/min (Normal) Comments: Non- GFR Calc CREAT,SERUM 0.68 mg/dL (Normal) Range: 0.55-1.02 Comments: The validity of the calculated GFR AND GFRAA in patients over70 years has not been determined. Clinical correlation isessential. BUN 20 mg/dL (Abnormal) Range: 7-18 GLU 84 mg/dL (Normal) Range: 70-110 [id number] CBC, Employee Comments: [facility] [address] [place], [place], [id number] Absolute Lymph 2.01 {X10_3/ul} (Normal) Range: 0.83-4.51 Absolute Neut 4.5 {X10_3/uL} (Normal) Range: 2.0-7.7 BASO% 0.3 % (Normal) Range: 0-1 EO% 2.2 % (Normal) Range: 0-5 MONO% 8.0 % (Normal) Range: 0-10 LY% 27.8 % (Normal) Range: 19-41 NEUT% 61.6 % (Normal) Range: 47-70 MPV 10.5 fL (Normal) Range: 6.2-12.0 PLT 263 K/mm3 (Normal) Range: 150-450 RDW SD 41.4 fL (Normal) Range: 35.1-43.9 RDW CV 12.8 % (Normal) Range: 11.6-14.6 MCHC 34.8 {g/gl} (Normal) Range: 32-36 MCH 30.9 pg (Normal) Range: 27.0-32.0 MCV 88.8 fL (Normal) Range: 81-99 HCT 42.0 % (Normal) Range: 37-47 HGB 14.6 g/dL (Normal) Range: 12.0-15.0 RBC 4.73 {M/mm3} (Normal) Range: 4.2-5.4 WBC 7.2 K/mm3 (Normal) Range: 4.4-11.0 [id number] Employee Profile Comments: [facility] [id number] [place], [place], [phone] LDH 178 U/L (Normal) Range: 84-246 VLDL 66 mg/dL (Abnormal) Range: 5-40 LDL 79 mg/dL (Normal) Range: 0-130 CHOL:HDL 3.80 (Normal) HDL 52 mg/dL (Normal) Comments: The drugs N-Acetylcysteine and Metamizole may falsely deressthis assay. Reference Range HDL <40 mg/dL Low HDL Cholesterol HDL >or= 60 mg/dL High HDL Cholesterol GAP 10 (Normal) Range: 5-15 CO2 23.0 mmol/L (Normal) Range: 21.0-32.0 CL 104 mmol/L (Normal) Range: 98-107 K 3.9 mmol/L (Normal) Range: 3.5-5.1 NA 137 mmol/L (Normal) Range: 136-145 TRIG 330 mg/dL (Abnormal) Comments: The drugs N-Acetylcysteine and Metamizole may falsely deressthis assay.Serum Triglycerides Reference Interval Normal <150 mg/dL Borderline high 150 - 199 mg/dL High 200 - 499 mg/dL Very High > or = 500 mg/dL CHOL 197 mg/dL (Normal) Comments: <200 mg/dL Desirable 200-240 mg/dL Borderline >240 mg/dL High Risk D BILI 0.09 mg/dL (Normal) Range: 0.00-0.30 T BILI 0.60 mg/dL (Normal) Range: 0.20-1.00 ALT 24 U/L (Normal) Range: 12-78 ALK P 91 U/L (Normal) Range: 45-117 AST 22 U/L (Normal) Range: 15-37 PHOS 2.4 mg/dL (Abnormal) Range: 2.5-4.9 CA 8.6 mg/dL (Normal) Range: 8.5-10.1 A/G 1.1 {RATIO} (Normal) Range: 0.9-2.4 GLOB 3.2 g/dL (Normal) Range: 2.3-3.5 ALB 3.6 g/dL (Normal) Range: 3.4-5.0 T PROT 6.8 g/dL (Normal) Range: 6.4-8.2 URIC 6.0 mg/dL (Normal) Range: 2.6-6.0 Comments: The drugs N-Acetylcysteine and Metamizole may falsely deressthis assay. BUN/CRE 25.6 {RATIO} (Abnormal) Range: 10-20 EST GFR - AA 122 mL/min (Normal) Comments: GFR Calc EST GFR 101 mL/min (Normal) Comments: Non- GFR Calc CREAT,SERUM 0.66 mg/dL (Normal) Range: 0.55-1.02 Comments: The validity of the calculated GFR AND GFRAA in patients over70 years has not been determined. Clinical correlation isessential. BUN 17 mg/dL (Normal) Range: 7-18 GLU 81 mg/dL (Normal) Range: 70-110 [id number] Nicotine Urine Drug Screen Comments: [facility] [id number] [place], [place], [id number] COT DRG SCREEN Negative (Normal) Comments: Cotinine is the first-stage metabolite of Nicotine. TO BE CONFIRMED (Normal) Comments: CONFIRMATORY TESTING FOR ALL POSITIVE URINE DRUG SCREENRESULTS WILL ONLY BE SENT OUT UPON PHYSICIAN ORDER.The results of Urine Drug Screen methods provide onlypreliminary analytical test results. A more specificalternate chemical method must be used in order to obtain aconfirmed analytical result. Gas chromatography/massspectrometery (GC/MS) is the preferred confirmatory method.Clinical consideration and professional judgement should beapplied to any drug of abuse test result, particularly whenpreliminary positive results are used. [id number] Urinalysis, Employee Comments: [address] [place], [address] LEUK ESTERASE Negative /ul (Normal) OCCULT BLOOD-UR Negative /ul (Normal) NITRITE UR Negative (Normal) UROBILI Normal mg/dL (Normal) PROT DIPSTX 15 mg/dL (Abnormal) pH UR 5.0 (Normal) Range: 5.0 - 8.0 SP.GR. DIPSTX 1.025 (Normal) Range: 1.002-1.030 KETONE UR Negative mg/dL (Normal) BILIRUBIN URINE Negative mg/dL (Normal) GLUCOSE, UR Normal mg/dL (Normal) CLARITY Clear (Normal) COLOR Yellow (Normal) 03-Jul-20169:40 Culture, R/O Strep A Comments: [address], [address] CUSTREPA See Note (Normal) Comments: NAI CultureNo Group A Beta Streptococcus isolated. * This cultures intended use is to screen for Beta Streptococcus A only. All other pathogens and potential pathogens will not be screened for or re ported. If a complete workup of all potential pathogens is indicated an order for a routine throat culture is required. :56 CBC, Employee Comments: [facility] [address] [place], [place], [id number] Absolute Lymph 2.21 {X10_3/ul} (Normal) Range: 0.83-4.51 Absolute Neut 4.0 {X10_3/uL} (Normal) Range: 2.0-7.7 BASO% 0.3 % (Normal) Range: 0-1 EO% 2.8 % (Normal) Range: 0-5 MONO% 8.8 % (Normal) Range: 0-10 LY% 31.5 % (Normal) Range: 19-41 NEUT% 56.3 % (Normal) Range: 47-70 MPV 10.0 fL (Normal) Range: 6.2-12.0 PLT 254 K/mm3 (Normal) Range: 150-450 RDW SD 41.1 fL (Normal) Range: 35.1-43.9 RDW CV 12.7 % (Normal) Range: 11.6-14.6 MCHC 34.6 {g/gl} (Normal) Range: 32-36 MCH 30.9 pg (Normal) Range: 27.0-32.0 MCV 89.2 fL (Normal) Range: 81-99 HCT 44.8 % (Normal) Range: 37-47 HGB 15.5 g/dL (Abnormal) Range: 12.0-15.0 RBC 5.02 {M/mm3} (Normal) Range: 4.2-5.4 WBC 7.0 K/mm3 (Normal) Range: 4.4-11.0 :56 Employee Profile Comments: [facility] [address] [place], [place], [id number] LDH 190 U/L (Normal) Range: 84-246 VLDL Test not performed mg/dL Range: 5-40 (Normal) LDL Test not performed mg/dL Range: 0-130 (Normal) CHOL:HDL 5.00 (Normal) HDL 44 mg/dL (Normal) Comments: The drugs N-Acetylcysteine and Metamizole may falsely deressthis assay. Reference Range HDL <40 mg/dL Low HDL Cholesterol HDL >or= 60 mg/dL High HDL Cholesterol GAP 10 (Normal) Range: 5-15 CO2 23.0 mmol/L (Normal) Range: 21.0-32.0 CL 102 mmol/L (Normal) Range: 98-107 K 4.0 mmol/L (Normal) Range: 3.5-5.1 NA 135 mmol/L (Abnormal) Range: 136-145 TRIG 456 mg/dL (Abnormal) Comments: The drugs N-Acetylcysteine and Metamizole may falsely deressthis assay.TRIGLYCERIDE IS GREATER THAN 400 mg/dL.LDL RESULT IS INVALID AND WILL NOT BE REPORTED.Serum Triglycerides Reference Interval Normal <150 mg/dL Borderline high 150 - 199 mg/dL High 200 - 499 mg/dL Very High > or = 500 mg/dL CHOL 218 mg/dL (Abnormal) Comments: <200 mg/dL Desirable 200-240 mg/dL Borderline >240 mg/dL High Risk D BILI 0.10 mg/dL (Normal) Range: 0.00-0.30 T BILI 0.40 mg/dL (Normal) Range: 0.20-1.00 ALT 42 U/L (Normal) Range: 12-78 ALK P 98 U/L (Normal) Range: 50-136 AST 23 U/L (Normal) Range: 15-37 PHOS 2.5 mg/dL (Normal) Range: 2.5-4.9 CA 8.8 mg/dL (Normal) Range: 8.5-10.1 A/G 1.1 {RATIO} (Normal) Range: 0.9-2.4 GLOB 3.4 g/dL (Normal) Range: 2.3-3.5 ALB 3.7 g/dL (Normal) Range: 3.4-5.0 T PROT 7.1 g/dL (Normal) Range: 6.4-8.2 URIC 5.6 mg/dL (Normal) Range: 2.6-6.0 Comments: The drugs N-Acetylcysteine and Metamizole may falsely deressthis assay. BUN/CRE 17.8 {RATIO} (Normal) Range: 10-20 EST GFR - AA 100 mL/min (Normal) Comments: GFR Calc EST GFR 83 mL/min (Normal) Comments: Non- GFR Calc CREAT,SERUM 0.79 mg/dL (Normal) Range: 0.55-1.20 Comments: The validity of the calculated GFR AND GFRAA in patients over70 years has not been determined. Clinical correlation isessential. BUN 14 mg/dL (Normal) Range: 7-18 GLU 91 mg/dL (Normal) Range: 70-110 :56 Nicotine Urine Drug Screen Comments: [facility] [id number] [facility]. [place], [place], [id number] COT DRG SCREEN Negative (Normal) Comments: Cotinine is the first-stage metabolite of Nicotine. TO BE CONFIRMED (Normal) Comments: CONFIRMATORY TESTING FOR ALL POSITIVE URINE DRUG SCREENRESULTS WILL ONLY BE SENT OUT UPON PHYSICIAN ORDER.The results of Urine Drug Screen methods provide onlypreliminary analytical test results. A more specificalternate chemical method must be used in order to obtain aconfirmed analytical result. Gas chromatography/massspectrometery (GC/MS) is the preferred confirmatory method.Clinical consideration and professional judgement should beapplied to any drug of abuse test result, particularly whenpreliminary positive results are used. :56 Urinalysis, Employee Comments: How was Urine Obtained? [facility] [id number] [facility]. [place], [place], [id number] LEUK ESTERASE 25 /ul (Abnormal) OCCULT BLOOD-UR Negative /ul (Normal) NITRITE UR Negative (Normal) UROBILI Normal mg/dL (Normal) PROT DIPSTX 15 mg/dL (Abnormal) pH UR 5.0 (Normal) Range: 5.0 - 8.0 SP.GR. DIPSTX 1.020 (Normal) Range: 1.002-1.030 KETONE UR Negative mg/dL (Normal) BILIRUBIN URINE Negative mg/dL (Normal) GLUCOSE, UR Normal mg/dL (Normal) CLARITY Clear (Normal) COLOR Yellow (Normal) :53 Lipid Profile Comments: [facility] [address] [facility] [place], [address] VLDL 40 mg/dL (Normal) Range: 5-40 LDL 93 mg/dL (Normal) Range: 0-130 HDL 58 mg/dL (Normal) Comments: Reference Range HDL <40 mg/dL Low HDL Cholesterol HDL >or= 60 mg/dL High HDL Cholesterol TRIG 201 mg/dL (Abnormal) Comments: Serum Triglycerides Reference Interval Normal <150 mg/dL Borderline high 150 - 199 mg/dL High 200 - 499 mg/dL Very High > or = 500 mg/dL CHOL 191 mg/dL (Normal) Comments: <200 mg/dL Desirable 200-240 mg/dL Borderline >240 mg/dL High Risk :04 CBC, Employee Comments: Test performed at:[facility] [address] [place] [address] Absolute Lymph 2.04 {X10_3/ul} (Normal) Range: 0.83-4.51 Absolute Neut 2.7 {X10_3/uL} (Normal) Range: 2.0-7.7 BASO% 0.6 % (Normal) Range: 0-1 EO% 3.3 % (Normal) Range: 0-5 MONO% 8.7 % (Normal) Range: 0-10 LY% 37.8 % (Normal) Range: 19-41 NEUT% 49.2 % (Normal) Range: 47-70 MPV 9.9 fL (Normal) Range: 6.2-12.0 PLT 289 K/mm3 (Normal) Range: 150-450 RDW SD 41.4 fL (Normal) Range: 35.1-43.9 RDW CV 12.7 % (Normal) Range: 11.6-14.6 MCHC 33.9 {g/gl} (Normal) Range: 32-36 MCH 30.4 pg (Normal) Range: 27.0-32.0 MCV 89.5 fL (Normal) Range: 81-99 HCT 43.6 % (Normal) Range: 37-47 HGB 14.8 g/dL (Normal) Range: 12.0-15.0 RBC 4.87 {M/mm3} (Normal) Range: 4.2-5.4 WBC 5.4 K/mm3 (Normal) Range: 4.4-11.0 31-Ttz-335423:04 Employee Profile Comments: Test performed at:[facility] [address] [place] [address] LDH 190 U/L (Normal) Range: 84-246 VLDL 77 mg/dL (Abnormal) Range: 5-40 LDL 201 mg/dL (Abnormal) Range: 0-130 HDLEMP 39 mg/dL (Normal) Comments: Reference Range HDL <40 mg/dL Low HDL Cholesterol HDL >or= 60 mg/dL High HDL Cholesterol HDL 39 mg/dL (Abnormal) Comments: Reference Range HDL <40 mg/dL Low HDL Cholesterol HDL >or= 60 mg/dL High HDL Cholesterol GAP 6 (Normal) Range: 5-15 CO2 27.0 mmol/L (Normal) Range: 21.0-32.0 CL 105 mmol/L (Normal) Range: 98-107 K 4.1 mmol/L (Normal) Range: 3.5-5.1 NA 138 mmol/L (Normal) Range: 136-145 TRIG 386 mg/dL (Abnormal) Comments: Serum Triglycerides Reference Interval Normal <150 mg/dL Borderline high 150 - 199 mg/dL High 200 - 499 mg/dL Very High > or = 500 mg/dL CHOL 317 mg/dL (Abnormal) Comments: <200 mg/dL Desirable 200-240 mg/dL Borderline >240 mg/dL High Risk D BILI 0.06 mg/dL (Normal) Range: 0.00-0.30 T BILI 0.50 mg/dL (Normal) Range: 0.20-1.00 ALT 55 U/L (Normal) Range: 12-78 ALK P 99 U/L (Normal) Range: 50-136 AST 31 U/L (Normal) Range: 15-37 PHOS 3.0 mg/dL (Normal) Range: 2.5-4.9 CA 9.1 mg/dL (Normal) Range: 8.5-10.1 A/G 1.1 {RATIO} (Normal) Range: 0.9-2.4 GLOB 3.5 g/dL (Normal) Range: 2.3-3.5 ALB 3.7 g/dL (Normal) Range: 3.4-5.0 T PROT 7.2 g/dL (Normal) Range: 6.4-8.2 URIC 6.3 mg/dL (Abnormal) Range: 2.6-6.0 BUN/CRE 21.5 {RATIO} (Abnormal) Range: 10-20 EST GFR - AA 101 mL/min (Normal) EST GFR 83 mL/min (Normal) CREAT,SERUM 0.79 mg/dL (Normal) Range: 0.55-1.20 Comments: Please note revised CREATININE reference range lywtqllwo27/22/2015. BUN 17 mg/dL (Normal) Range: 7-18 GLU 89 mg/dL (Normal) Range: 70-110 74-Drd-619117:04 Urinalysis, Employee Comments: Test performed at:[facility] [address] [place] [address] LEUK ESTERASE Negative /ul (Normal) OCCULT BLOOD-UR Negative /ul (Normal) NITRITE UR Negative (Normal) UROBILI Normal mg/dL (Normal) PROT DIPSTX Negative mg/dL (Normal) pH UR 6.0 (Normal) Range: 5.0 - 8.0 SP.GR. DIPSTX 1.015 (Normal) Range: 1.002-1.030 KETONE UR Negative mg/dL (Normal) BILIRUBIN URINE Negative mg/dL (Normal) GLUCOSE, UR Normal mg/dL (Normal) CLARITY Sl. Cloudy (Normal) COLOR Yellow (Normal) 82-Aci-127105:45 CBCEM ALC 1.82 {X10_3/ul} (Normal) Range: 0.83-4.51 ANC 3.3 {X10_3/uL} (Normal) Range: 2.0-7.7 tB% 0.5 % (Normal) Range: 0-1 tE% 1.7 % (Normal) Range: 0-5 tM% 9.9 % (Normal) Range: 0-10 tL% 31.0 % (Normal) Range: 19-41 tN% 56.6 % (Normal) Range: 47-70 MPV 10.1 fL (Normal) Range: 6.2-12.0 PLT 282 K/mm3 (Normal) Range: 150-450 RDWSD 39.6 fL (Normal) Range: 35.1-43.9 RDWCV 12.9 % (Normal) Range: 11.6-14.6 MCHC 34.7 {g/gl} (Normal) Range: 32-36 MCH 29.9 pg (Normal) Range: 27.0-32.0 MCV 86.2 fL (Normal) Range: 81-99 HCT 42.4 % (Normal) Range: 37-47 HGB 14.7 g/dL (Normal) Range: 12.0-15.0 RBC 4.92 {M/mm3} (Normal) Range: 4.2-5.4 WBC 5.9 K/mm3 (Normal) Range: 4.4-11.0 31-Rin-304553:45 EMP Comments: [facility] EM[employer] ANNUAL [facility] SVCATTN MICHAEL BUSBY....NO NOT MAIL LDH 211 U/L (Normal) Range: 87-241 VLDL 29 mg/dL (Normal) Range: 5-40 LDL 128 mg/dL (Normal) Range: 0-130 HDLEMP 44 mg/dL (Normal) Comments: Reference RangeHDL <40 mg/dL Low HDL CholesterolHDL >or= 60 mg/dL High HDL Cholesterol HDL 44 mg/dL (Normal) Comments: Reference RangeHDL <40 mg/dL Low HDL CholesterolHDL >or= 60 mg/dL High HDL Cholesterol GAP 6 (Normal) Range: 5-15 CO2 27.0 mmol/L (Normal) Range: 21.0-32.0 CL 103 mmol/L (Normal) Range: 98-107 K 4.0 mmol/L (Normal) Range: 3.5-5.1 NA 136 mmol/L (Normal) Range: 136-145 TRIG 147 mg/dL (Normal) Range: 0-199 Comments: Serum Triglycerides Reference IntervalNormal <150 mg/dLBorderline high 150 - 199 mg/dLHigh 200 - 499 mg/ dLVery High > or = 500 mg/dL CHOL 201 mg/dL (Abnormal) Comments: <200 mg/dL Zevpniwwr477-250 mg/dL Borderline>240 mg/dL High Risk BID 0.14 mg/dL (Normal) Range: 0.00-0.30 BIT 0.70 mg/dL (Normal) Range: 0.00-1.00 ALT 69 U/L (Normal) Range: 12-78 ALK 99 U/L (Normal) Range: 45-117 AST 41 U/L (Abnormal) Range: 15-37 PHOS 3.6 mg/dL (Normal) Range: 2.5-4.9 CA 9.0 mg/dL (Normal) Range: 8.5-10.1 AG 1.4 {RATIO} (Normal) Range: 0.9-2.4 GLOB 3.0 g/dL (Normal) Range: 2.7-4.2 ALB 4.1 g/dL (Normal) Range: 3.4-5.0 TPROT 7.1 g/dL (Normal) Range: 6.4-8.2 URIC 6.6 mg/dL (Abnormal) Range: 2.6-6.0 BC 26.3 {RATIO} (Abnormal) Range: 10-20 GFRAA 99 mL/min (Normal) GFR 82 mL/min (Normal) CREAT 0.8 mg/dL (Normal) Range: 0.6-1.0 BUN 21 mg/dL (Abnormal) Range: 7-18 GLU 103 mg/dL (Normal) Range: 70-110 58-Put-911526:45 UAEM DAMIÁN Negative /ul (Normal) UOB Negative /ul (Normal) SYLVIA Negative (Normal) UROBU Normal mg/dL (Normal) uPROTU Negative mg/dL (Normal) ELISE 5.0 (Normal) Range: 5.0 - 8.0 SGU 1.020 (Normal) Range: 1.002-1.030 KETU Negative mg/dL (Normal) BILIU Negative mg/dL (Normal) GLUR Normal mg/dL (Normal) UCLAR Sl. Cloudy (Normal) UCOL Yellow (Normal) 5-Wkv-973900:12 DDIMQ 0.30 {FEUug/mL} (Normal) Range: 0.22-0.48 Comments: NORMAL D-Dimer level indicates no DVT or PE. 6-Cim-[id number]:23 Pathology Report Comments: PERFORMED BY: [facility] [id number] [facility] [id number] Information: [id number] See MATER Comments: Material submitted: .EXCISION RIGHT AXILLAClinical history: .LIPOMA;ETIOLOGY UNKNOWN;CHECK FOR MARGINS Note (Normal) Diagnosis:EXCISION RIGHT AXILLA:BENIGN LIPOMA..07/02/2012Kuldeep stafford signed: .Forest Espinoza MD, PhD, PathologistGross description: .1 Container, formalin-filled, labeled with patient id entification.EXCISION RIGHT AXILLA:Received in formalin are multiple fragments of yellow tissuemeasuring 2.4 x 1.7 x 0.3 cm in aggregate. It is filtered through anembedding bag and submitted as received in cassette A./LMSLMS/LMSPathologist provided ICD-9:214.9CPT .579135 [id number]-Svx-[id number]:23 LIPID VLDL 30 mg/dL (Normal) Range: 5-40 CHOL 182 mg/dL (Normal) Comments: <200 mg/dL Desirable 200-240 mg/dL Borderline >240 mg/dL High Risk HDL 38 mg/dL (Abnormal) Comments: Reference Range HDL <40 mg/dL Low HDL Cholesterol HDL >or= 60 mg/dL High HDL Cholesterol LDL 114 mg/dL (Normal) Range: 0-130 TRIG 148 mg/dL (Normal) Comments: Serum Triglycerides Reference Interval Normal <150 mg/dL Borderline high 150 - 199 mg/dL High 200 - 499 mg/dL Very High > or = 500 mg/dL 63-Yvt-549816:23 LIVER BID 0.08 mg/dL (Normal) Range: 0.00-0.30 BIT 0.50 mg/dL (Normal) Range: 0.00-1.00 ALK 86 U/L (Normal) Range: 50-136 ALT 30 U/L (Normal) Range: 12-78 ALB 4.1 g/dL (Normal) Range: 3.4-5.0 AST 17 U/L (Normal) Range: 15-37 TPROT 7.2 g/dL (Normal) Range: 6.4-8.2 63-Uly-343138:06 LIPID VLDL 41 mg/dL (Abnormal) Range: 5-40 HDL 47 mg/dL (Normal) Comments: Reference Range HDL <40 mg/dL Low HDL Cholesterol HDL >or= 60 mg/dL High HDL Cholesterol LDL 151 mg/dL (Abnormal) Range: 0-130 TRIG 205 mg/dL (Abnormal) Comments: Serum Triglycerides Reference Interval Normal <150 mg/dL Borderline high 150 - 199 mg/dL High 200 - 499 mg/dL Very High > or = 500 mg/dL CHOL 239 mg/dL (Abnormal) Comments: <200 mg/dL Desirable 200-240 mg/dL Borderline >240 mg/dL High Risk :24 A1C 5.3 % (Normal) Range: 4.2-6.3 :24 LIPID VLDL 20 mg/dL (Normal) Range: 5-40 LDL 149 mg/dL (Abnormal) Range: 0-130 HDL 58 mg/dL (Normal) Comments: Reference Range HDL <40 mg/dL Low HDL Cholesterol HDL >or= 60 mg/dL High HDL Cholesterol TRIG 98 mg/dL (Normal) Comments: Serum Triglycerides Reference Interval Normal <150 mg/dL Borderline high 150 - 199 mg/dL High 200 - 499 mg/dL Very High > or = 500 mg/dL CHOL 227 mg/dL (Abnormal) Comments: <200 mg/dL Desirable 200-240 mg/dL Borderline >240 mg/dL High Risk :44 LIPID VLDL 14 mg/dL (Normal) Range: 5-40 HDL 50 mg/dL (Normal) Comments: Reference Range HDL <40 mg/dL Low HDL Cholesterol HDL >or= 60 mg/dL High HDL Cholesterol LDL 141 mg/dL (Abnormal) Range: 0-130 TRIG 70 mg/dL (Normal) Comments: Serum Triglycerides Reference Interval Normal <150 mg/dL Borderline high 150 - 199 mg/dL High 200 - 499 mg/dL Very High > or = 500 mg/dL CHOL 205 mg/dL (Abnormal) Comments: <200 mg/dL Desirable 200-240 mg/dL Borderline >240 mg/dL High Risk :07 HGB A1C 5.9 % (Normal) Range: 4.2-6.3 :22 FSH 4309 10.4 m[iU]/mL (Normal) Comments: Follicular phase 3.5 - 12.5 Ovulation phase 4.7 - 21.5 Luteal phase 1.7 - 7.7 Postmenopausal 25.8 - 134.8Performed at: [facility] - [facility] [id number] [place], [place] [id number] Director: Mary Mccallum MD, Phone: [phone] :[phone] LIVER Comments: appt 02/11/11 D BILI 0.10 mg/dL (Normal) Range: 0.00-0.30 T BILI 0.50 mg/dL (Normal) Range: 0.00-1.00 ALT 31 U/L (Normal) Range: 12-78 ALK P 95 U/L (Normal) Range: 50-136 AST 18 U/L (Normal) Range: 15-37 ALB 4.1 g/dL (Normal) Range: 3.4-5.0 T PROT 7.4 g/dL (Normal) Range: 6.4-8.2 :22 LUTEIN HOR 4283 30.8 m[iU]/mL (Normal) Comments: Follicular phase 2.4 - 12.6 Ovulation phase 14.0 - 95.6 Luteal phase 1.0 - 11.4 Postmenopausal 7.7 - 58.5 :22 PROT.[id number] M-SPIKE,U SeeNote % (Normal) Comments: Result: Not Observed NOTE Comment (Normal) Comments: Protein electrophoresis scan will follow via computer,mail, or decorator store delivery. GAMMA GLOB,U 11.4 % (Normal) XDSHD-8-ZRBL,U 9.0 % (Normal) BETA GLOB,U 24.2 % (Normal) YAVPJ-4-VYQG,U 1.7 % (Normal) ALBUMIN,UR 53.7 % (Normal) PROTEIN,UR 24.6 mg/dL (Abnormal) Range: 0.0-15.0 :22 SPE [id number] INTERPRETATION Comment (Normal) Comments: The SPE pattern appears essentially unremarkable. Evidenceof monoclonal protein is not apparent.Protein electrophoresis scan will follow via computer,mail, or decorator store delivery. A/G RATIO 1.3 (Normal) Range: 0.7-2.0 GLOBULIN, TOTAL 2.9 g/dL (Normal) Range: 2.0-4.5 M-SPIKE SeeNote g/dL (Normal) Comments: Result: Not Observed GAMMA GLOBULIN 0.9 g/dL (Normal) Range: 0.5-1.6 BETA GLOBULIN 1.1 g/dL (Normal) Range: 0.6-1.3 ALPHA-2 GLOBUL 0.6 g/dL (Normal) Range: 0.4-1.2 ALPHA-1 GLOBUL 0.2 g/dL (Normal) Range: 0.1-0.4 ALBUMIN 3.9 g/dL (Normal) Range: 3.2-5.6 PROTEIN,TOTAL 6.8 g/dL (Normal) Range: 6.0-8.5 :03 CBCD,SMEAR DIFF RED CELL MORPH SeeNote {NORMAL} (Normal) Comments: Result: NORM C+C PLT EST SeeNote (Normal) Comments: Result: ADEQUATE BASOPHIL 1 % (Normal) Range: 0-1 EOS 3 % (Normal) Range: 0-5 MONOCYTE 6 % (Normal) Range: 0-10 LYMPH 27 % (Normal) Range: 19-41 SEGS 63 % (Normal) Range: 47-70 CELLS COUNTED 100 (Normal) ABSOLUTE NEUT 4.7 3/uL (Normal) Range: 2.0-7.7 PLT 297 K/mm3 (Normal) Range: 150-450 RDW 13.9 % (Normal) Range: 11.6-14.6 MCHC 34.3 g/dL (Normal) Range: 32-36 MCH 30.3 pg (Normal) Range: 27.0-32.0 MCV 88.5 fL (Normal) Range: 81-99 HCT 42.3 % (Normal) Range: 37-47 HGB 14.5 g/dL (Normal) Range: 12.0-16.0 RBC 4.78 {M/mm3} (Normal) Range: 4.2-5.4 WBC 7.2 K/mm3 (Normal) Range: 4.4-11.0 :03 COMP METABOLIC GAP 10 (Normal) Range: 5-15 CO2 24.0 mmol/L (Normal) Range: 21.0-32.0 CL 104 mmol/L (Normal) Range: 98-107 K 4.3 mmol/L (Normal) Range: 3.5-5.1 NA 138 mmol/L (Normal) Range: 136-145 T BILI 0.50 mg/dL (Normal) Range: 0.00-1.00 ALT 30 U/L (Normal) Range: 12-78 ALK P 91 U/L (Normal) Range: 50-136 AST 21 U/L (Normal) Range: 15-37 CA 8.5 mg/dL (Normal) Range: 8.5-10.1 A/G 1.3 {RATIO} (Normal) Range: 0.9-2.4 GLOB 2.9 g/dL (Normal) Range: 2.7-4.2 ALB 3.9 g/dL (Normal) Range: 3.4-5.0 T PROT 6.8 g/dL (Normal) Range: 6.4-8.2 BUN/CRE 15.0 {RATIO} (Normal) Range: 10-20 EST GFR - AA 101 mL/min (Normal) EST GFR 83 mL/min (Normal) CREAT,SERUM 0.8 mg/dL (Normal) Range: 0.6-1.0 BUN 12 mg/dL (Normal) Range: 7-18 GLU 79 mg/dL (Normal) Range: 70-110 :03 COMPLETE UA MUCUS, URINE 0 SEEN {/hpf} (Normal) BACTERIA 1+ {/hpf} (Normal) SQUAM EPI SeeNote {/hpf} (Normal) Range: 5-10 Comments: Result: 10-25 SEEN RBC-UA 0 SEEN {/hpf} (Normal) Range: 0-5 WBC SeeNote {/hpf} (Normal) Range: 0-5 Comments: Result: 0-5 SEEN LEUK ESTERASE SeeNote (Normal) Comments: Result: NEGATIVE OCCULT BLOOD-UR SeeNote (Normal) Comments: Result: NEGATIVE NITRITE UR SeeNote (Normal) Comments: Result: NEGATIVE UROBILI 0.2 EU/dl (Normal) Range: 0.2 - 1.0 PROT DIPSTX SeeNote (Normal) Comments: Result: NEGATIVE pH UR 7.5 (Normal) Range: 5.0-8.0 SP.GR. DIPSTX 1.015 (Normal) Range: 1.002-1.030 KETONE UR SeeNote mg/dL (Normal) Comments: Result: NEGATIVE BILIRUBIN URINE SeeNote (Normal) Comments: Result: NEGATIVE GLUCOSE, UR SeeNote (Normal) Comments: Result: NEGATIVE CLARITY CLEAR (Normal) COLOR YELLOW (Normal) :03 LIPID VLDL 41 mg/dL (Abnormal) Range: 5-40 HDL 41 mg/dL (Normal) Comments: Reference Range HDL <40 mg/dL Low HDL Cholesterol HDL >or= 60 mg/dL High HDL Cholesterol LDL 186 mg/dL (Abnormal) Range: 0-130 TRIG 204 mg/dL (Abnormal) Comments: Serum Triglycerides Reference Interval Normal <150 mg/dL Borderline high 150 - 199 mg/dL High 200 - 499 mg/dL Very High > or = 500 mg/dL CHOL 268 mg/dL (Abnormal) Comments: <200 mg/dL Desirable 200-240 mg/dL Borderline >240 mg/dL High Risk 03-Cgt-100695:03 MICROALB:CRE UR MALB:CREAT 41.3 {mg/g_CRE} (Abnormal) MICROALBUMIN,UR 66.0 mg/L (Normal) UR CREAT 159.7 mg/dL (Normal) :03 TSH 1.16 {uIU/mL} (Normal) Range: 0.358-3.74 34-Hlx-941035:57 CERV SPINE,MIN 4 VIEWS Radiology Report See Note (Normal) Comments: Exam Number: [id number] CLINICAL:43-year-old female with neck pain. X-RAY EXAMINATION: CERVICAL SPINE TECHNIQUE:AP, lateral, oblique, and open mouth odontoid views of the cervicalspine were obtained. COM PARISON:None. FINDINGS:Normal craniovertebral junction. Normal anterior atlantoaxialarticulation. Normal odontoid process. There is slight straightening of the normal cervical lordosis.Normal alignmen t of the cervical vertebrae. Normal visualized cervical vertebral bodies, without compressiondeformity or destructive lesion. Normal visualized posterior osseous elements and spinous processes. No signi ficant loss of the disc space heights. Normal visualizedvertebral endplates. Normal appearing right neuroforamina. Theoblique view for the left foramina is shallow, despite repeating it,and evaluatio n of the C6-7 and C7-T1 foramina is limited. The morecephalad foramina on the left appear normal. Normal visualized soft tissue structures. IMPRESSION:No significant plain film findings of spondylosis. Reported By: ELSA MOODY M.D. :33 MYOCARD PERF STRESS/REST MULT Radiology Report See Note (Normal) Comments: Exam Number: [id number] MYOCARDIAL PERFUSION SCAN 11.3 mCi of Tc99m Sestamibi was injected at rest. The patient thenexercised according to the regular Adria protocol for 12 minutesattaining 184 beats pe r minute and a work load of 13.4 METs. At peakexercise, 33.3 mCi of Tc99m Sestamibi was injected. Stress imageswere then obtained. Stress and rest images were reconstructed andcompared in the short axi s, vertical long and horizontal long axes.Gated images were also obtained. Review of the stress images demonstrate normal uptake of tracer notedin all areas of the myocardium. The resting images simila rlydemonstrate normal uptake of tracer in all areas of the myocardium.No reversibility is noted to suggest ischemia. The gated ejectionfraction is noted to be 67%. CONCLUSION1. Normal exercise myocard ial perfusion scan at a high work load.2. Preserved ejection fraction. Reported By: ANNA MARIE PANTOJA M.D. 24-[id number] CBCD,SMEAR DIFF RED CELL MORPH SeeNote {NORMAL} (Normal) Comments: Result: NORM C+C ABSOLUTE NEUT 4.1 3/uL (Normal) Range: 2.0-7.7 CELLS COUNTED 100 (Normal) HCT 39.2 % (Normal) Range: 37-47 HGB 13.3 g/dL (Normal) Range: 12.0-16.0 LYMPH 31 % (Normal) Range: 19-41 MCH 29.5 pg (Normal) Range: 27.0-32.0 MCHC 34.0 g/dL (Normal) Range: 32-36 MCV 86.7 fL (Normal) Range: 81-99 MONOCYTE 4 % (Normal) Range: 0-10 PLT 269 K/mm3 (Normal) Range: 150-450 PLT EST SeeNote (Normal) Comments: Result: ADEQUATE RDW 15.2 % (Abnormal) Range: 11.6-14.6 SEGS 65 % (Normal) Range: 47-70 RBC 4.53 {M/mm3} (Normal) Range: 4.2-5.4 WBC 6.8 K/mm3 (Normal) Range: 4.4-11.0 [id number] RENAL CL 103 mmol/L (Normal) Range: 98-107 CO2 25.0 mmol/L (Normal) Range: 21.0-32.0 K 3.9 mmol/L (Normal) Range: 3.5-5.1 NA 135 mmol/L (Abnormal) Range: 136-145 ALB 3.7 g/dL (Normal) Range: 3.4-5.0 BUN 15 mg/dL (Normal) Range: 7-18 BUN/CRE 21.4 {RATIO} (Abnormal) Range: 10-20 CA 8.3 mg/dL (Abnormal) Range: 8.5-10.1 CREAT,SERUM 0.7 mg/dL (Normal) Range: 0.6-1.0 EST GFR 98 mL/min (Normal) EST GFR - AA 119 mL/min (Normal) PHOS 2.6 mg/dL (Normal) Range: 2.5-4.9 GLU 102 mg/dL (Normal) Range: 70-110 [id number] Aerobic Bacterial Culture Comments: PATIENT NOT FASTINGPERFORMED BY: [id number] ArideasUNC [facility] [id number] Information: SRC: RIGHT ARM Antimicrobial MIHEAD (Normal) Comments: S = Susceptible; I = Intermediate; R = Resistant P = Positive; N = NegativeMICS are expressed in micrograms per mLAntibiotic RSLT#1 RSLT#2 RSLT#3 RSLT#4Ci profloxacin Susceptibility RClindamycin SErythromycin SGentamicin SLevofloxacin ILinezolid SMoxifloxacin RNitrofurantoin SOxacillin SPenicillin SQuinupristin/Dalfopristin SRifampin STetracycline STr imethoprim/Sulfa SVancomycin S Result 1 Staphylococcus aureus Comments: Moderate growthSusceptibility or resistance of staphylococci to oxacillin predictssusceptibility or resistance to (a) other zozj-sbgqyhimm-mjidavcithysmkbcy such as cloxacillin and dicloxacillin, (b) co (Normal) mbinationsof a penicillin and a beta-lactamase inhibitor, and(c) anti- staphylococcal cephalosporins. Routine testing of otherpenicillins, beta-lactam/beta-lactamase inhibitor combinations,cephems, and c arbapenems is not advised by the CLSI Standards(T460-U58, 2005). Aerobic Bacterial Final report (Normal) Culture [id number] SED RATE ERYTHROCYTE ([id number]) Comments: PATIENT NOT FASTINGPERFORMED BY: [facility] Dvufcz2585 [facility] [id number] Sedimentation Rate-Westergren 2 mm/h (Normal) Range: 0-20 :45 CBC with manual diff ([id number]) Comments: PATIENT NOT FASTINGClinical Information: [id number] PERFORMED BY: [facility] Dkfala7121 [facility] [id number] Baso (Absolute) 0.0 {x10E3/uL} (Normal) Range: 0.0-0.2 Basos 1 % (Normal) Range: 0-3 Eos 2 % (Normal) Range: 0-7 Eos (Absolute) 0.1 {x10E3/uL} (Normal) Range: 0.0-0.4 Hematocrit 39.7 % (Normal) Range: 34.0-44.0 Hemoglobin 13.5 g/dL (Normal) Range: 11.5-15.0 Lymphs 33 % (Normal) Range: 14-46 Lymphs (Absolute) 1.6 {x10E3/uL} (Normal) Range: 0.7-4.5 MCH 30.6 pg (Normal) Range: 27.0-34.0 MCHC 34.1 g/dL (Normal) Range: 32.0-36.0 MCV 90 fL (Normal) Range: 80-98 Monocytes 7 % (Normal) Range: 4-13 Monocytes(Absolute) 0.3 {x10E3/uL} (Normal) Range: 0.1-1.0 Neutrophils 57 % (Normal) Range: 40-74 Neutrophils (Absolute) 2.8 {x10E3/uL} (Normal) Range: 1.8-7.8 Platelets 282 {x10E3/uL} (Normal) Range: 140-415 RBC 4.42 {x10E6/uL} (Normal) Range: 3.80-5.10 RDW 13.8 % (Normal) Range: 11.7-15.0 WBC 4.9 {x10E3/uL} (Normal) Range: 4.0-10.5 :45 HEPATIC FUNCTION PANEL Comments: PATIENT NOT FASTINGPERFORMED BY: [facility] JerseyYrrrpa5238 [facility] [id number] ([id number]) Bilirubin, Direct 0.14 mg/dL (Normal) Range: 0.00-0.40 7-Ceg-508619:45 Metabolic Panel, Comprehensive Comments: PATIENT NOT FASTINGPERFORMED BY: [facility] Nlgpeu8678 [facility] [id number] ([id number]) A/G Ratio 2.0 (Normal) Range: 1.1-2.5 Albumin, Serum 4.5 g/dL (Normal) Range: 3.5-5.5 Alkaline Phosphatase, S 80 [iU]/L (Normal) Range: 25-150 ALT (SGPT) 12 [iU]/L (Normal) Range: 0-40 AST (SGOT) 18 [iU]/L (Normal) Range: 0-40 Bilirubin, Total 0.6 mg/dL (Normal) Range: 0.1-1.2 BUN 16 mg/dL (Normal) Range: 5-26 BUN/Creatinine Ratio 25 (Normal) Range: 8-27 Calcium, Serum 9.4 mg/dL (Normal) Range: 8.5-10.6 Carbon Dioxide, Total 22 mmol/L (Normal) Range: 20-32 Chloride, Serum 103 mmol/L (Normal) Range: 97-108 Creatinine, Serum 0.64 mg/dL (Normal) Range: 0.57-1.00 eGFR >59 mL/min/1.73 (Normal) eGFR AfricanAmerican >59 mL/min/1.73 Comments: Note: Persistent reduction for 3 months or more in an eGFR<60 mL/min/1.73 m2 defines CKD. Patients with eGFR values>/=60 mL/min/1.73 m2 may also have CKD if evidence of persistentproteinuria is (Normal) present. Additional information may be found [email or web address]. Globulin, Total 2.3 g/dL (Normal) Range: 1.5-4.5 Glucose, Serum 83 mg/dL (Normal) Range: 65-99 Potassium, Serum 4.1 mmol/L (Normal) Range: 3.5-5.2 Protein, Total, Serum 6.8 g/dL (Normal) Range: 6.0-8.5 Sodium, Serum 139 mmol/L (Normal) Range: 135-145 8-Rvm-504768:03 Urinalysis, Office ([id number]) UA - BLOOD Negative (Normal) UA - LEUKOCYTE ESTERASE Negative (Normal) UA - NITRITE Negative (Normal) UA - PH 6.0 (Normal) UA - PROTEIN Negative mg/dL (Normal) URINE UROBILINGN ABIGAIL TIMED Normal mg/dL (Normal) UA - BILIRUBIN Negative (Normal) UA - GLUCOSE Negative (Normal) UA - KETONES Negative mg/dL (Normal) UA - SPECIFIC GRAVITY 1.025 (Normal) 1-Luw-372873:47 ABDOMEN WITH IV CONTRAST Radiology Report See Note (Normal) Comments: Exam Number: [id number] HISTORYRight side abdominal pain. CT ABDOMEN WITH IV AND ORAL CONTRAST TECHNIQUEMultiplanar CT abdomen images were obtained after intravenous and oralcontrast (Isovue 300, 100 mL) . FINDINGSThere are 4 to 5 small sub cm hypodense lesions at liver, at bothlobes, too small to characterize most likely represent small cysts. Prior cholecystectomy. Normal appendix. No evidence of fr ee fluid orfree air. Please note only images up to upper pelvis were obtained. Nonobstructive bowel gas pattern is noted. No significantlymphadenopathy. Both kidneys concentrated and excreted cont rast normally. Thepancreas, bilateral adrenal glands, spleen are unremarkable. Visualized bones are grossly unremarkable. IMPRESSION1. No acute intra- abdominal findings. Normal appendix.2. A few n onspecific 4 to 5 small sub cm hypodense lesions at liver,most likely represent cysts. Reported By: Minor Boateng [id number] ACUTE ABDOMEN, INC CHEST ([place]) Radiology Report See Note (Normal) Comments: Exam Number: [id number] CLINICAL:Right upper quadrant pain. X-RAY EXAMINATION: CHEST / ABDOMEN TECHNIQUE:Four views of the abdomen were obtained including supine, upright views. An additional AP view of the chest was obtained. COMPARISON:None. FINDINGS:Normal heart without cardiac enlargement. Normal visualized aortic arch and descending thoracic aorta. Normal visualized mediastinum without a demonstr ated mass lesion. Normal pulmonary hilar and peripheral pulmonary vessels without pulmonary vascular congestion. There are no pleural effusions. Normal visualized lungs without a demonstrated acute pulm onary process. Normal, non-specific bowel gas pattern, without a demonstrated ileus, bowel obstruction, free peritoneal air, or extraluminal gas collection. Normal visualized abdominal organs and soft t issues. Cholecystectomy clips are identified in the right upper quadrant. There are no abdominal calcifications. There are no pelvic calcifications. Normal visualized osseous structures. IMPRESSION:No demonstrated acute pathologic process of the chest or abdomen. Cholecystectomy clips in the right upper quadrant. Reported By: MICHAELA MARK M.D. 19-Pwq-428780:15 CBC with manual diff ([id number]) Comments: PATIENT NOT FASTINGClinical Information: [id number] PERFORMED BY: [facility] [id number] Baso (Absolute) 0.0 {x10E3/uL} (Normal) Range: 0.0-0.2 Basos 0 % (Normal) Range: 0-3 Eos 1 % (Normal) Range: 0-7 Eos (Absolute) 0.1 {x10E3/uL} (Normal) Range: 0.0-0.4 Hematocrit 38.9 % (Normal) Range: 34.0-44.0 Hemoglobin 13.5 g/dL (Normal) Range: 11.5-15.0 Lymphs 25 % (Normal) Range: 14-46 Lymphs (Absolute) 1.5 {x10E3/uL} (Normal) Range: 0.7-4.5 MCH 30.6 pg (Normal) Range: 27.0-34.0 MCHC 34.8 g/dL (Normal) Range: 32.0-36.0 MCV 88 fL (Normal) Range: 80-98 Monocytes 6 % (Normal) Range: 4-13 Monocytes(Absolute) 0.4 {x10E3/uL} (Normal) Range: 0.1-1.0 Neutrophils 68 % (Normal) Range: 40-74 Neutrophils (Absolute) 4.1 {x10E3/uL} (Normal) Range: 1.8-7.8 Platelets 252 {x10E3/uL} (Normal) Range: 140-415 RBC 4.42 {x10E6/uL} (Normal) Range: 3.80-5.10 RDW 15.0 % (Normal) Range: 11.7-15.0 WBC 6.0 {x10E3/uL} (Normal) Range: 4.0-10.5 66-[id number]:15 Metabolic Panel, Comprehensive Comments: PATIENT NOT FASTINGPERFORMED BY: [facility]IANRe[facility] JerseyFrigco8796 [facility] [id number] ([id number]) A/G Ratio 1.8 (Normal) Range: 1.1-2.5 Albumin, Serum 4.4 g/dL (Normal) Range: 3.5-5.5 Alkaline Phosphatase, S 78 [iU]/L (Normal) Range: 25-150 ALT (SGPT) 10 [iU]/L (Normal) Range: 0-40 AST (SGOT) 19 [iU]/L (Normal) Range: 0-40 Bilirubin, Total 0.4 mg/dL (Normal) Range: 0.1-1.2 BUN 10 mg/dL (Normal) Range: 5-26 BUN/Creatinine Ratio 15 (Normal) Range: 8-27 Calcium, Serum 9.4 mg/dL (Normal) Range: 8.5-10.6 Carbon Dioxide, Total 21 mmol/L (Normal) Range: 20-32 Chloride, Serum 103 mmol/L (Normal) Range: 97-108 Creatinine, Serum 0.65 mg/dL (Normal) Range: 0.57-1.00 eGFR >59 mL/min/1.73 (Normal) eGFR AfricanAmerican >59 mL/min/1.73 Comments: Note: Persistent reduction for 3 months or more in an eGFR<60 mL/min/1.73 m2 defines CKD. Patients with eGFR values>/=60 mL/min/1.73 m2 may also have CKD if evidence of persistentproteinuria is (Normal) present. Additional information may be found [email or web address]. Globulin, Total 2.4 g/dL (Normal) Range: 1.5-4.5 Glucose, Serum 90 mg/dL (Normal) Range: 65-99 Potassium, Serum 4.4 mmol/L (Normal) Range: 3.5-5.2 Protein, Total, Serum 6.8 g/dL (Normal) Range: 6.0-8.5 Sodium, Serum 139 mmol/L (Normal) Range: 135-145 06-[id number]:15 HEPATIC FUNCTION PANEL Comments: PATIENT NOT FASTINGPERFORMED BY: [facility] Zmhwnp8268 [facility] [id number] ([id number]) Bilirubin, Direct 0.11 mg/dL (Normal) Range: 0.00-0.40 6-Seo-910538:34 CBC, EMPLOYEE HCT 42.3 % (Normal) Range: 37-47 HGB 14.6 g/dL (Normal) Range: 12.0-16.0 MCH 30.1 pg (Normal) Range: 27.0-32.0 MCHC 34.6 g/dL (Normal) Range: 32-36 MCV 87.1 fL (Normal) Range: 81-99 MPV 8.1 fL (Normal) Range: 6.5-12.0 PLT 349 K/mm3 (Normal) Range: 150-450 RBC 4.86 {M/mm3} (Normal) Range: 4.2-5.4 RDW 12.6 % (Normal) Range: 11.6-14.6 WBC 5.5 K/mm3 (Normal) Range: 4.4-11.0 9-Rzn-318373:34 EMP PROF A/G 1.2 {RATIO} (Normal) Range: 0.9-2.4 ALB 4.2 g/dL (Normal) Range: 3.4-5.0 ALK P 96 U/L (Normal) Range: 50-136 AST 18 U/L (Normal) Range: 15-37 BUN 14 mg/dL (Normal) Range: 7-18 BUN/CRE 17.5 {RATIO} (Normal) Range: 10-20 CA 9.1 mg/dL (Normal) Range: 8.5-10.1 CHOL 244 mg/dL (Abnormal) Comments: <200 mg/dL Desirable 200-240 mg/dL Borderline >240 mg/dL High Risk CREAT,SERUM 0.8 mg/dL (Normal) Range: 0.6-1.0 EST GFR 84 mL/min (Normal) EST GFR - AA 102 mL/min (Normal) Comments: ESTIMATED GLOMERULAR FILTRATION RATE The National Kidney Foundation (NKF) guidelines forChronic kidney disease (CKD) recommends all laboratoriesestimate the level of glomerular filtration ra te (GFR)in p atients from age 18 - 70 years of age.The eGFR for patient's is the eGFRmultiplied by 1.212. [facility] Laboratory uses the abbreviated Modification of Diet inRenal Disease (MDRD) study equati on to calculate the eGFR.The Estimated GFR equation is not applicable for patients<18 years of age or patients >70 years of age.The following conditions may alter the eGFR calculationresult: extre mes in body size, severe malnutrition orobesity, skeletal muscle disease, paraplegia, quadriplegia,vegetarian diet, , certain drug therapy and rapidlychanging kidney function. Association o f GFR and Staging of Kidney Disease*GFR (mL/min) With Kidney Disease W/O Kidney Disease>/= 90 Stage One Igsdwn38 - 89 Stage Two Suspect Decreased GFR30 - 59 Stage Three Stage Three15 - 29 Stage Four Stage Four< 15 or Dialysis Stage Five Stage Five *Each stage assumes the associ ated GFR level has been ineffect for at least three months.Additional studies & clinical assessments are indicated toconclude diagnosis of Chronic Kidney Disease (CKD). GLOB 3.4 g/dL (Normal) Range: 2.7-4.2 GLU 104 mg/dL (Normal) Range: 70-110 HDL 60 mg/dL (Normal) Comments: Reference Range HDL <40 mg/dL Low HDL Cholesterol HDL >or= 60 mg/dL High HDL Cholesterol LDH 176 U/L (Normal) Range: 100-190 LDL 170 mg/dL (Abnormal) Range: 0-130 PHOS 3.0 mg/dL (Normal) Range: 2.5-4.9 T BILI 0.36 mg/dL (Normal) Range: 0.00-1.00 T PROT 7.6 g/dL (Normal) Range: 6.4-8.2 TRIG 69 mg/dL (Normal) Comments: Serum Triglycerides Reference Interval Normal <150 mg/dL Borderline high 150 - 199 mg/dL High 200 - 499 mg/dL Very High > or = 500 mg/dL URIC 5.6 mg/dL (Normal) Range: 2.6-6.0 VLDL 14 mg/dL (Normal) Range: 5-40 5-Iug-712575:34 EMP URINALYSIS BILIRUBIN URINE SeeNote (Normal) Comments: Result: NEGATIVE CLARITY CLEAR (Normal) COLOR YELLOW (Normal) GLUCOSE, UR SeeNote (Normal) Comments: Result: NEGATIVE KETONE UR SeeNote mg/dL (Normal) Comments: Result: NEGATIVE LEUK ESTERASE SeeNote (Normal) Comments: Result: NEGATIVE NITRITE UR SeeNote (Normal) Comments: Result: NEGATIVE OCCULT BLOOD-UR 3+ (Abnormal) pH UR 6.0 (Normal) Range: 5.0-8.0 PROT DIPSTX TRACE (Normal) SP.GR. DIPSTX 1.020 (Normal) Range: 1.002-1.030 UROBILI 0.2 EU/dl (Normal) Range: 0.2 - 1.0 97-Vaa-732114:52 Pap Lb, Ct-Ng, Comments: Source.............Cervical;EndocervicalNo. of containers..01 CYTYC Thin Prep VialPERFORMED BY: =G [facility] [place] [address] [place] [id number] HPV-hr . . (Normal) Chlamydia, Nuc. Acid Amp Negative (Normal) DIAGNOSIS: SPRCS (Normal) Comments: NEGATIVE FOR INTRAEPITHELIAL LESION AND MALIGNANCY.Satisfactory for evaluation. Endocervical and/or squamous metaplasticcells (endocervical component) are present.616.10 ; Unspecified vagin itis and vul vovaginitisNatalie A Nataliya, Managed Care Specialist Gonococcus, Nuc. Acid Amp Negative (Normal) Note: PAPSMR (Normal) Comments: The Pap smear is a screening test designed to aid in the detection ofpremalignant and malignant conditions of the uterine cervix. It is not adiagnostic procedure and should not be used as the sole mean s of detectingcervical cancer. Both false-positive and false-negative reports do occur. . 47-Cum-567098:37 Urinalysis, Office ([id number]) UA - LEUKOCYTE ESTERASE Negative (Normal) Comments: aw UA - BILIRUBIN Negative (Normal) UA - BLOOD Negative (Normal) UA - GLUCOSE Negative (Normal) UA - KETONES Negative mg/dL (Normal) UA - NITRITE Negative (Normal) UA - PH 5.0 (Normal) UA - PROTEIN Negative mg/dL (Normal) UA - SPECIFIC GRAVITY 1.020 (Normal) URINE UROBILINGN ABIGAIL TIMED Normal mg/dL (Normal) 64-Akp-90681:51 CBC, EMPLOYEE HCT 38.2 % (Normal) Range: 37-47 HGB 13.4 g/dL (Normal) Range: 12.0-16.0 MCH 31.2 pg (Normal) Range: 27.0-32.0 MCHC 35.1 g/dL (Normal) Range: 32-36 MCV 89.0 fL (Normal) Range: 81-99 MPV 8.5 fL (Normal) Range: 6.5-12.0 PLT 240 K/mm3 (Normal) Range: 150-450 RBC 4.29 {M/mm3} (Normal) Range: 4.2-5.4 RDW 13.2 % (Normal) Range: 11.6-14.6 WBC 5.8 K/mm3 (Normal) Range: 4.4-11.0 :51 EMP PROF A/G 1.3 {RATIO} (Normal) Range: 0.9-2.4 ALB 3.8 g/dL (Normal) Range: 3.4-5.0 ALK P 83 U/L (Normal) Range: 50-136 AST 16 U/L (Normal) Range: 15-37 BUN 16 mg/dL (Normal) Range: 7-18 BUN/CRE 26.7 {RATIO} (Abnormal) Range: 10-20 CA 8.6 mg/dL (Normal) Range: 8.5-10.1 CHOL 150 mg/dL (Normal) Comments: <200 mg/dL Desirable 200-240 mg/dL Borderline >240 mg/dL High Risk CREAT,SERUM 0.6 mg/dL (Normal) Range: 0.6-1.0 GLOB 2.9 g/dL (Normal) Range: 2.7-4.2 Comments: Please Note Reference Interval Change GLU 87 mg/dL (Normal) Range: 70-110 HDL 52 mg/dL (Normal) Comments: Reference Range HDL <40 mg/dL Low HDL Cholesterol HDL >or= 60 mg/dL High HDL Cholesterol LDH 138 U/L (Normal) Range: 100-190 LDL 88 mg/dL (Normal) Range: 0-130 PHOS 3.1 mg/dL (Normal) Range: 2.5-4.9 T BILI 0.39 mg/dL (Normal) Range: 0.00-1.00 T PROT 6.7 g/dL (Normal) Range: 6.4-8.2 TRIG 49 mg/dL (Normal) Comments: Serum Triglycerides Reference Interval Normal <150 mg/dL Borderline high 150 - 199 mg/dL High 200 - 499 mg/dL Very High > or = 500 mg/dL URIC 3.4 mg/dL (Normal) Range: 2.6-6.0 VLDL 10 mg/dL (Normal) Range: 5-40 :51 EMP URINALYSIS BILIRUBIN URINE SeeNote (Normal) Comments: Result: NEGATIVE CLARITY CLEAR (Normal) GLUCOSE, UR SeeNote (Normal) Comments: Result: NEGATIVE KETONE UR SeeNote mg/dL (Normal) Comments: Result: NEGATIVE LEUK ESTERASE SeeNote (Normal) Comments: Result: NEGATIVE NITRITE UR SeeNote (Normal) Comments: Result: NEGATIVE OCCULT BLOOD-UR SeeNote (Normal) Comments: Result: NEGATIVE pH UR 5.5 (Normal) Range: 5.0-8.0 PROT DIPSTX SeeNote (Normal) Comments: Result: NEGATIVE SP.GR. DIPSTX 1.025 (Normal) Range: 1.002-1.030 UROBILI 0.2 EU/dl (Normal) Range: 0.2 - 1.0 COLOR YELLOW (Normal) 54-Idl-530116:15 Urinalysis, Office ([id number]) UA - BILIRUBIN Large (Normal) UA - BLOOD Non Hemolyzed Trace (Normal) UA - GLUCOSE Negative (Normal) UA - KETONES Negative mg/dL (Normal) UA - LEUKOCYTE ESTERASE Trace (Normal) Comments: aw UA - NITRITE Negative (Normal) UA - PH 5.0 (Normal) UA - PROTEIN Negative mg/dL (Normal) UA - SPECIFIC GRAVITY 1.020 (Normal) URINE UROBILINGN ABIGAIL TIMED Normal mg/dL (Normal) 01-Ekf-336787:15 CULTURE, URINE URINE CULTURE See Note {CFU/mL} (Normal) Comments: COLONY COUNT <1000 ORGANISM 1: MIXED GRAM POSITIVE ORGANISMS :52 CBC HCT 42.0 % (Normal) Range: 37-47 HGB 14.7 g/dL (Normal) Range: 12.0-16.0 MCH 30.5 pg (Normal) Range: 27.0-32.0 MCHC 34.9 g/dL (Normal) Range: 32-36 MCV 87.3 fL (Normal) Range: 81-99 PLT 278 K/mm3 (Normal) Range: 150-450 RBC 4.81 {M/mm3} (Normal) Range: 4.2-5.4 RDW 13.0 % (Normal) Range: 11.6-14.6 WBC 8.4 K/mm3 (Normal) Range: 4.4-11.0 :52 COMP METABOLIC A/G 1.4 {RATIO} (Normal) Range: 0.9-2.4 ALB 4.2 g/dL (Normal) Range: 3.4-5.0 ALK P 85 U/L (Normal) Range: 50-136 ALT 32 [iU]/L (Normal) Range: 30-65 AST 17 U/L (Normal) Range: 15-37 BUN 15 mg/dL (Normal) Range: 7-18 BUN/CRE 16.7 {RATIO} (Normal) Range: 10-20 CA 9.1 mg/dL (Normal) Range: 8.5-10.1 CL 104 mmol/L (Normal) Range: 98-107 CO2 24.0 mmol/L (Normal) Range: 22.0-29.0 CREAT,SERUM 0.9 mg/dL (Normal) Range: 0.6-1.0 GAP 8 (Normal) Range: 5-15 GLOB 3.1 g/dL (Normal) Range: 2.3-3.5 GLU 91 mg/dL (Normal) Range: 70-110 K 4.0 mmol/L (Normal) Range: 3.5-5.1 NA 136 mmol/L (Normal) Range: 136-145 T BILI 0.70 mg/dL (Normal) Range: 0.00-1.00 T PROT 7.3 g/dL (Normal) Range: 6.4-8.2 :52 PFLIP CHOL 244 mg/dL (Abnormal) Comments: <200 mg/dL Desirable 200-240 mg/dL Borderline >240 mg/dL High Risk HDL 41 mg/dL (Normal) Comments: Reference Range HDL <40 mg/dL Low HDL Cholesterol HDL >or= 60 mg/dL High HDL Cholesterol LDL 168 mg/dL (Abnormal) Range: 0-130 TRIG 173 mg/dL (Normal) Comments: Serum Triglycerides Reference Interval Normal <150 mg/dL Borderline high 150 - 199 mg/dL High 200 - 499 mg/dL Very High > or = 500 mg/dL VLDL 35 mg/dL (Normal) Range: 5-40 :52 PRO TIME INR 1.0 (Normal) PROTIME 12.8 s (Normal) Range: 11.7-13.3 :52 PROLACTIN 4465 6.7 ng/mL (Normal) Range: 2.8-29.2 Comments: Male Female 0- 1 mon. 3.7 - 81.2 0.3 - 95.0 1-12 mons. 0.3 - 28.9 0.2 - 29.9 1- 3 yrs. 2.3 - 13.2 1.0 - 17.0 4- 6 yrs. 0.8 - 16.9 1.6 - 13.1 7- 9 yrs. 1.9 - 11.6 0.3 - 12.9 10 -12 yrs. 0.9 - 12.9 1.9 - 9.6 13-15 yrs. 1.6 - 16.6 3.0 - 14.4 Adult 2.1 - 17.7 2.8 - 29.2 Female: Non- 2.8 - 29.2 9.7 - 208.5 Postmenopausal 1.8 - 20.3Performed At: [facility], [place] [id number] :52 PTT 30.5 s (Normal) Range: 24.6-36.6 :52 TSH 1.29 {uIU/mL} (Normal) Range: 0.34-4.82 Plan of Care Name Dates Details Instructions BMI 35.0-35.9,adult : Follow up in 4 months Indication: BMI 35.0-35.9,adult Hypertriglyceridemia : Reviewed Diagnostic Tests Indication: Hypertriglyceridemia Postmenopausal (Renamed from Postmenopausal status) : Reviewed Diagnostic Tests Indication: Postmenopausal (Renamed from Postmenopausal status) Postmenopausal (Renamed from Postmenopausal status) : Reviewed Lab Indication: Postmenopausal (Renamed from Postmenopausal status) Hypertension : Reviewed Lab Indication: Hypertension Encounter for screening for malignant neoplasm of colon (Renamed from Special screening for malignant neoplasms, colon) : *Colon Cancer Screening Indication: Encounter for screening for malignant neoplasm of colon (Renamed from Special screening for malignant neoplasms, colon) Nonsmoker : Eprescribed prescriptions (G8553) Indication: Nonsmoker BMI 35.0-35.9,adult : Follow up in 3 months Indication: BMI 35.0-35.9,adult Physical exam without abnormal findings (Renamed from Encounter for routine adult health examination without abnormal findings) : Reviewed Diagnostic Tests Indication: Physical exam without abnormal findings (Renamed from Encounter for routine adult health examination without abnormal findings) Physical exam without abnormal findings (Renamed from Encounter for routine adult health examination without abnormal findings) : Reviewed Lab Indication: Physical exam without abnormal findings (Renamed from Encounter for routine adult health examination without abnormal findings) Nonsmoker : Eprescribed prescriptions (G8553) Indication: Nonsmoker Nonsmoker : Follow up in 3 months Indication: Nonsmoker Cough : Eprescribed prescriptions (G8553) Indication: Cough Nonsmoker : Follow up if no improvement or if symptoms worsen Indication: Nonsmoker Cough : Eprescribed prescriptions (G8553) Indication: Cough Cervical radiculopathy, acute (Renamed from Acute cervical radiculopathy) : Follow up if no improvement or if symptoms worsen Indication: Cervical radiculopathy, acute (Renamed from Acute cervical radiculopathy) Cervical radiculopathy, acute (Renamed from Acute cervical radiculopathy) : Follow up in 2 weeks Indication: Cervical radiculopathy, acute (Renamed from Acute cervical radiculopathy) Cervical radiculopathy, acute (Renamed from Acute cervical radiculopathy) : exercises Indication: Cervical radiculopathy, acute (Renamed from Acute cervical radiculopathy) Well Female (V72.31) (II) : Reviewed Diagnostic Tests Indication: Well Female (V72.31) (II) Well Female (V72.31) (II) : Reviewed Lab Indication: Well Female (V72.31) (II) Hammer toe of second toe of right foot : Follow up in 2 weeks Indication: Hammer toe of second toe of right foot Hypercholesteremia : Follow up if no improvement or if symptoms worsen Indication: Hypercholesteremia Motion sickness : Follow up if no improvement or if symptoms worsen Indication: Motion sickness Vaccine for grrqjwatsp-pfzgybe-tkwoerupc with poliomyelitis : Eprescribed prescriptions (G8553) Indication: Vaccine for tfrfztjoyk-tpjismq-nimuahmdm with poliomyelitis Cough : Follow up if no improvement or if symptoms worsen Indication: Cough Unspecified asthma with (acute) exacerbation : *URI Treatment Indication: Unspecified asthma with (acute) exacerbation Unspecified asthma with (acute) exacerbation : *URI Symptoms Indication: Unspecified asthma with (acute) exacerbation Unspecified asthma with (acute) exacerbation : *Antibiotic Usage Education - Female Indication: Unspecified asthma with (acute) exacerbation Hypercholesteremia : Follow up in 1 month Indication: Hypercholesteremia Hypercholesteremia : Eprescribed prescriptions (G8553) Indication: Hypercholesteremia Wheezing : Follow up if no improvement or if symptoms worsen Indication: Wheezing Bronchitis : *Antibiotic Usage Education - Female Indication: Bronchitis Cough : Follow up if no improvement or if symptoms worsen Indication: Cough Bronchitis : *URI Treatment Indication: Bronchitis Bronchitis : *URI Symptoms Indication: Bronchitis Bronchitis : *Antibiotic Usage Education - Female Indication: Bronchitis Lipoma of lower extremity : Follow up if no improvement or if symptoms worsen Indication: Lipoma of lower extremity Lipoma of axilla : Anesthesia - Lido with Epi Indication: Lipoma of axilla Sebaceous cyst : Follow up in 3 months Indication: Sebaceous cyst Conjunctival irritation : Follow up in 6 months Indication: Conjunctival irritation Hypertension : Follow up in 3 months Indication: Hypertension Wheezing : Follow up if no improvement or if symptoms worsen Indication: Wheezing Bronchitis : *URI Treatment Indication: Bronchitis Bronchitis : *URI Symptoms Indication: Bronchitis Bronchitis : *Antibiotic Usage Education - Female Indication: Bronchitis Hypercholesteremia : Follow up in 3 months Indication: Hypercholesteremia Hypertension : High Blood Pressure (Essential Hypertension) *: blood pressure Indication: Hypertension Asthma : Follow up in 3 months Indication: Asthma Hypertension : Follow up in 3 months Indication: Hypertension Hypertension : Reviewed Diagnostic Tests Indication: Hypertension Hypertension : Reviewed Lab Indication: Hypertension Hypercholesteremia : Follow up in 2 weeks Indication: Hypercholesteremia Irregular menstrual cycle : Follow up in 3 weeks Indication: Irregular menstrual cycle Hypercholesteremia : Cholesterol mgmt Indication: Hypercholesteremia Hypercholesteremia : *Cholesterol - Nonprescription Treatment Indication: Hypercholesteremia Hypercholesteremia : *Cholesterol - Medication Side Effects Indication: Hypercholesteremia Chest pain : Follow up in 2 weeks Indication: Chest pain Allergic rhinitis due to other allergen : Follow up as needed Indication: Allergic rhinitis due to other allergen Allergic rhinitis due to other allergen : Allergy proofing Indication: Allergic rhinitis due to other allergen Allergic rhinitis due to other allergen : Allergy control Indication: Allergic rhinitis due to other allergen Serous conjunctivitis, unspecified laterality : *Conjunctivitis Education Indication: Serous conjunctivitis, unspecified laterality Hypertension : FOLLOW UP IN 3 MONTHS Indication: Hypertension Cervical strain : FOLLOW UP IN 2 WEEKS with [facility] Indication: Cervical strain Cervical strain : exercises Indication: Cervical strain Pre-operative examination : Reviewed Lab: reviewed EKG and Echo Indication: Pre-operative examination Pre-operative examination : Reviewed Diagnostic Tests Indication: Pre-operative examination Cellulitis and abscess of other specified site : FOLLOW UP TOMORROW on Dr. Zayas schedule for IV Vanco Indication: Cellulitis and abscess of other specified site Cellulitis and abscess of other specified site : FOLLOW UP TOMORROW with [facility] for IV vancomycin Day #3 Indication: Cellulitis and abscess of other specified site Insect bite, nonvenomous of shoulder and upper arm, infected : FOLLOW UP TOMORROW for IV vanco over 1 hr with [facility] Indication: Insect bite, nonvenomous of shoulder and upper arm, infected Cellulitis and abscess of other specified site : I/D Cyst/Abscess Indication: Cellulitis and abscess of other specified site Candidiasis, mouth : FOLLOW UP TOMORROW with [facility] Indication: Candidiasis, mouth Hypercholesteremia : Cholesterol - Medication Side Effects Indication: Hypercholesteremia Hypercholesteremia : Cholesterol - Nonprescription Treatment Indication: Hypercholesteremia Hypercholesteremia : CHOLESTEROL MGMT. Indication: Hypercholesteremia Well Female (V72.31) (II) : Self Breast Exam Education Indication: Well Female (V72.31) (II) Well Female (V72.31) (II) : Well Female Maintenance ([facility]) Indication: Well Female (V72.31) (II) Well Female (V72.31) (II) : Pap/Pelvic/Bimanual/Breast Exam was done. Indication: Well Female (V72.31) (II) GERD (gastroesophageal reflux disease) : GERD Education Indication: GERD (gastroesophageal reflux disease) Planned Observations LIPID PANEL ([id number])Indication: Hypertriglyceridemia On: 87-Maq-646678:01 Request URIC ACID BLOOD ([id number])Indication: Elevated uric acid in blood On: 5-Kvp-260724:41 Request Lipid Panel (51895)Indication: Hypertriglyceridemia, sporadic On: 0-Otn-034276:40 Request Comments: fasting Lipid Panel (04569)Indication: Hypercholesteremia On: 03-Ios-747476:20 Request Comments: to be done in 6 weeks at [facility] DDimer ([id number])Indication: Cough On: 2-Hdm-525335:12 Request Lipid Panel (41534)Indication: Hypercholesteremia On: 61-Nat-961259:08 Request Comments: fasting HEPATIC FUNCTION PANEL ([id number])Indication: Hypercholesteremia On: 00-Qyp-053623:02 Request Lipid Panel ([id number])Indication: Hypercholesteremia On: 32-Rla-12569:26 Request Hemoglobin Glyclated (HGB A1C) ([id number])Indication: Proteinuria On: :41 Request Lipid Panel ([id number])Indication: Hypercholesteremia On: :35 Request LIPID PANEL ([id number])Indication: Hypercholesteremia On: 63-Ofu-499810:51 Request UPEP ([id number])Indication: Proteinuria On: :56 Request SPEP ([id number])Indication: Proteinuria On: :56 Request GONADOTROPIN-LH (03693)Indication: Irregular menstrual cycle On: :55 Request GONADOTROPIN-FSH ([id number])Indication: Irregular menstrual cycle On: :54 Request HEPATIC FUNCTION PANEL ([id number])Indication: Hypercholesteremia On: :49 Request Hemoglobin Glyclated (HGB A1C) (48908)Indication: Proteinuria On: :13 Request GONADOTROPIN-LH ([id number])Indication: Unspecified Diagnosis On: :22 Request GONADOTROPIN-FSH ([id number])Indication: Unspecified Diagnosis On: :22 Request HEPATIC FUNCTION PANEL ([id number])Indication: Unspecified Diagnosis On: :22 Request TSH ([id number])Indication: Hypertension On: :33 Request URINALYSIS, W/ MICRO ([id number])Indication: Hypertension On: :33 Request MICROALBUMIN: CREATININE RATIO ([id number]) AND ([id number])Indication: Hypertension On: :33 Request METABOLIC PANEL, COMPREHENSIVE ([id number])Indication: Hypertension On: :33 Request LIPID PANEL ([id number])Indication: Hypertension On: :33 Request CREATININE, URINE ([id number])Indication: Hypertension On: :33 Request CBC WITH MANUAL DIFF ([id number])Indication: Hypertension On: :33 Request TAMIA CULTURE-OTHER ([id number])Indication: Cellulitis and abscess of other specified site On: :48 Request Comments: rt inner arm thin prep (12268) (std testing)Indication: Vaginitis and vulvovaginitis On: :17 Request NEISSERIA ([id number]) (THIN PREP OBTAINED)Indication: Vaginitis and vulvovaginitis On: :17 Request HUMAN PAPILVS, NUCLEIC ACID AMPL PROBE ([id number])Indication: Vaginitis and vulvovaginitis On: :17 Request CHLAMYDIA ([id number]) (thin prep obtained)Indication: Vaginitis and vulvovaginitis On: :17 Request URINE TAMIA CULTURE (ABIGAIL COL COUNT) ([id number])Indication: Dysuria On: 75-Sji-529225:14 Request LIPID PANEL ([id number])Indication: Hypercholesteremia On: 7-Pxj-620150:10 Request Comments: to be done in 6 months post life style changes. Thin prep Pap (84758)Indication: Well Female (V72.31) (II) On: :07 Request LIPID PANEL ([id number])Indication: Screening for hyperlipidemia On: :32 Request PTT (ACTIVATED PARTIAL THROMBOPLASTIN TIME) ([id number])Indication: Irregular menstrual cycle On: :28 Request PT (PROTHROMBIN TIME) ([id number])Indication: Irregular menstrual cycle On: :28 Request PROLACTIN ([id number])Indication: Irregular menstrual cycle On: 75-Bgs-285737:28 Request METABOLIC PANEL, COMPREHENSIVE ([id number])Indication: Irregular menstrual cycle On: 94-Jvh-161390:28 Request TSH ([id number])Indication: Irregular menstrual cycle On: :28 Request CBC (AUTO) ([id number])Indication: Irregular menstrual cycle On: 02-Pfq-183113:28 Request Planned Encounters Medical; 4 Month FU - On: 26-May-2018 11:15 [facility] Cher Sampson CNP, CNP, Mary E Planned Procedures DEXA SCAN AXIAL SKELETON ([id number])By: On: 21-Oct-2017 Intent Cher Sampson CNP, CNP, Mary E SCREENING DIGITAL TOMOSYNTHESIS OF On: 05-Aug-2017 Intent BREAST ([id number])By: Cher Sampson CNP, CNP, Mary E Aerosol Treatment ([id number])By: Camilla On: 16-Jun-2017 Intent Cher ANNE Perlitamoiradamián ANNE Cher Henson Spirometry ([id number])By: Camilla ANNE, On: 16-Jun-2017 Intent CynthiaSixto Sampson CNP Cynthia SCREENING DIGITAL TOMOSYNTHESIS OF On: 30-Jul-2016 Intent BREAST ([id number])By: Wanda Cole DO Aerosol Treatment ([id number])By: Camilla On: 09-Jul-2016 Intent DAYANA CynthiaSixto Sampson CNP Cher Henson Solu -Medrol Injection, 125 mg On: 09-Jul-2016 Intent ([id number])By: Camilla ANNE CynthiaSixto Sampson CNP Cher Henson Aerosol Treatment ([id number])By: Jarrett On: 09-Jul-2016 Intent Florence SMITH MRI OF THORACIC SPINE WITHOUT On: 30-Nov-2015 Intent CONTRAST ([id number])By: Camilla ANNE CynthiaSixto Sampson CNP Cynthia Radiology - Cervical SpineBy: Camilla On: 16-Nov-2015 Intent DAYANA CynthiaSixto Sampson CNP Cynthia PHYSICAL THERAPY EVALUATION On: 16-Nov-2015 Intent ([id number])By: Cher Sampson CNP, CNP Cynthia EMG, DYNAMIC SURFACE, 1-12 MUSCLE On: 16-Nov-2015 Intent ([id number])By: Cher Sampson CNP, CNP Cynthia MAMMOGRAM BREAST BILATERAL On: 06-Jul-2015 Intent SCREENING DIGITAL ([id number])By: Cher Sampson CNP, CNP Cynthia TDAP VACCINE >7 IM ([id number])By: Camilla On: 09-Oct-2014 Intent DAYANA CynthiaSixto Sampson CNP Cynthia Comments: boostrixlot [id number] 10.9.15L Dltd, IMPrefilled syringeMegan Long, LPNVIS signed Solu -Medrol Injection, 125 mg On: 15-May-2014 Intent ([id number])By: Cher Sampson CNP Comments: lot [id number] 7.32420 mgright gmIMas, FLOWER CHENILLER DAYANA Cynthia Solu -Medrol Injection, 125 mg On: 04-Feb-2013 Intent ([id number])By: Cher Sampson CNP Comments: Lot: [id number]: 07/2015Amt: 125mgRoute: IMSite: RUOQ GlutealGiven by: SARAH Montoya CNP, Mary E Radiology - ChestBy: Camilla ANNE, On: 04-Feb-2013 Intent Cher King CNP Comments: call wet read to Edwin Sampson at [facility] Aerosol Treatment ([id number])By: Camilla On: 04-Feb-2013 Intent Cher ANNE CNP, Mary E Eprescribed prescriptions On: 04-Feb-2013 Intent ([id number])By: Cher Sampson CNP, CNP, Mary E Aerosol Treatment ([id number])By: Camilla On: 10-Jan-2013 Intent Cher ANNE CNP Cynthia Eprescribed prescriptions On: 10-Jan-2013 Intent ([id number])By: Tisha Salcedo BIOPSY OF SKIN LESION, SINGLE On: 30-Jun-2012 Intent ([id number])By: Cher Sampson CNP Comments: area cleaned with betadine, small incision made, lipoma extracted in pieces, no bleeding, bandage applied Cher ANNE DRAIN SKIN ABSCESS, SIMPLE/SINGLE On: 30-Jun-2012 Intent ([id number])By: Cher Sampson CNP, CNP, Cynthia Eprescribed prescriptions On: 28-Jun-2012 Intent (G8553)By: Maggie Jarvis LPN Spirometry ([id number])By: Camilla ANNE, On: 22-Dec-2011 Intent Cher King CNP Eprescribed prescriptions On: 22-Dec-2011 Intent ([id number])By: Cher Sampson CNP, CNP, Mary E Aerosol Treatment ([id number])By: Camilla On: 10-Nov-2011 Intent Cher ANNE CNP, Mary E ELECTROCARDIOGRAM, COMPLETE (ECG) On: 15-Jan-2011 Intent ([id number])By: Cher Sampson CNP Comments: sinus rhythm borderline T abnormalities Cher ANNE Bio Z ([id number])By: Cher Sampson CNP On: 15-Jan-2011 Intent Cher Sampson CNP Comments: elevated systemic Vascular Resistance Index HIGH COMP EYE EXAMINATION, ESTAB PATIENT On: 18-Dec-2010 Intent ([id number])By: Cher Sampson CNP, CNP, Mary E PHYSICAL THERAPY EVALUATION On: 12-Oct-2009 Intent ([id number])By: Cher Sampson CNP, CNP, Mary E Toradol Injection, 30 mg On: 12-Oct-2009 Intent ([id number])By: Cher Sampson CNP Comments: Lot #: [id number] date: mount given: 30 mg/mlRoute: IMSite given: Left hipGiven by: Damián Voss RN CNP, Mary E Radiology - Cervical SpineBy: Ciesa On: 12-Oct-2009 Intent Cher ANNE CNP, Mary E Nuclear Stress Test/Stress On: 28-Aug-2009 Intent SPECT/AdenosineBy: Cher Sampson CNP, CNP, Mary E Echo CompleteBy: Cher Sampson CNP On: 28-Aug-2009 Intent Cher Sampson CNP Vancoymcin 500mg/premixedBy: Fast On: 17-Aug-2009 Intent Kely IRBY Comments: give total 1 gramLot #[id number]-left anticubitalDose1 gmgiven by:CDHIV Therapy lujdiketc26F, 1 inchSite:left anticubital Tolerated: wellno redness or swelling, no s/s infiltration THER/PROPH/DIAG INJ, SC/IM On: 16-Aug-2009 Intent ([id number])By: Camilla ANNE CynthiaSixto Sampson CNP Cynthia Vancoymcin 500mg/premixedBy: Ciesa On: 16-Aug-2009 Intent DAYANA CynthiaSixto Sampson CNP Cynthia Comments: 1 gramDay #3 THER/PROPH/DIAG INJ, SC/IM On: 15-Aug-2009 Intent ([id number])By: Cher Sampson CNP, CNP, Mary E Vancoymcin 500mg/premixedBy: Ciesa On: 15-Aug-2009 Intent Cher ANNE CNP, Mary E Comments: Lot #[id number]-right anticubital given by:CDH Vancoymcin 500mg/premixedBy: Ciesa On: 15-Aug-2009 Intent DAYANA CynthiaSixto Sampson CNP Cynthia Comments: IV Therapy reused site from 08/14/09 22G, 1 inchSite: right anticubitalTolerated: wellno redness or swelling, no s/s infiltration DRAIN SKIN ABSCESS, SIMPLE/SINGLE On: 14-Aug-2009 Intent ([id number])By: Cher Sampson CNP, CNP, Mary E Vancoymcin 500mg/premixedBy: Camilla On: 14-Aug-2009 Intent Cher ANNE CNP, Mary E THER/PROPH/DIAG INJ, SC/IM On: 13-Aug-2009 Intent ([id number])By: Cher Sampson CNP, CNP, Mary E Rocephon Injection, 1 Gm On: 13-Aug-2009 Intent ([id number])By: Cher Sampson CNP, CNP, Mary E CT - AbdomenBy: Cher Sampson CNP On: 30-Jan-2009 Intent Cher Sampson CNP Radiology - Abdomen SeriesBy: Camilla On: 16-Jan-2009 Intent Cher ANNE CNP Cynthia Toradol Injection, 30 mg On: 09-Feb-2008 Intent ([id number])By: Cher Sampson CNP Comments: Amt: 30mgLot: [id number]: 12/2008Route: IMSite: right deltoid (per pt request)Tolerated: wellGiven By: SARAH Farrell CNP, Mary E Toradol Injection, 30 mg On: 22-Oct-2006 Intent ([id number])By: Wanda Cole DO Comments: Lot #:[id number] date: given:30mg/mlRoute: IMSite given:left deltoidGiven by: nidia smith MAMMOGRAM, SCREENING, BOTH BREASTS On: 04-Mar-2006 Intent ([id number])By: TOI HOPKINS CNP Ultrasound - PelvisBy: SANDEEP ANNE, On: 04-Mar-2006 Intent TOI Planned Medications INJECTION, METHYLPREDNISOLONE SODIUM SUCCINATE, UP TO 125 MG Ordered: 04-Feb-2013 Pending Cher Sampson CNP, CNP, Mary E INJECTION, METHYLPREDNISOLONE SODIUM SUCCINATE, UP TO 125 MG Ordered: 15-May-2014 Pending Cher Sampson CNP, CNP, Mary E INJECTION, METHYLPREDNISOLONE SODIUM SUCCINATE, UP TO 125 MG Ordered: 09-Jul-2016 Pending Cher Sampson CNP, CNP, Mary E Instructions Name Dates Details Nonsmoker : How to access health information online Indication: Nonsmoker Encounter for screening for malignant neoplasm of colon (Renamed from Special screening for malignant neoplasms, colon) : How to access health information online - Detail Indication: Encounter for screening for malignant neoplasm of colon (Renamed from Special screening for malignant neoplasms, colon) BMI 35.0-35.9,adult : Patient Instructions Indication: BMI 35.0-35.9,adult Nonsmoker : How to access health information online Indication: Nonsmoker Nonsmoker : How to access health information online - Detail Indication: Nonsmoker Nonsmoker : Patient Instructions Indication: Nonsmoker Cough : How to access health information online Indication: Cough Cough : How to access health information online - Detail Indication: Cough Cough : Patient Instructions Indication: Cough Cough : How to access health information online - Detail Indication: Cough Cough : How to access health information online Indication: Cough Cough : Patient Instructions Indication: Cough Hypertension : Patient Instructions Indication: Hypertension Hypertension : Patient Instructions Indication: Hypertension Hypercholesteremia : Patient Instructions Indication: Hypercholesteremia Vaccine for qyexpizccu-romgnum-fddahgtlr with poliomyelitis : How to access health information online Indication: Vaccine for kbqlldmlkj-fmlzwtm-jhltpcgdx with poliomyelitis Vaccine for kyzroysaub-kviepck-fqymxsjxe with poliomyelitis : How to access health information online - Detail Indication: Vaccine for rahwkwbuai-qtreffh-bzrfpqeyi with poliomyelitis Vaccine for vggxfhlnfg-ggdjway-ripiiugmg with poliomyelitis : Patient Instructions Indication: Vaccine for lxotmyduup-kwgojrx-npdcmwxyv with poliomyelitis Hypercholesteremia : Patient Instructions Indication: Hypercholesteremia Wheezing : Patient Instructions Indication: Wheezing Cough : Patient Instructions Indication: Cough Lipoma of lower extremity : Patient Instructions Indication: Lipoma of lower extremity Sebaceous cyst : Patient Instructions Indication: Sebaceous cyst Hypercholesteremia : Patient Instructions Indication: Hypercholesteremia Encounters Office Visit On: 25-Jan-2018 11:10 Encounter Reason: Follow up for chronic medical issues - The patient feels well with no complaints, has good energy level and is sleeping well. Patient has been compliant with instructions. Current medication use: no inna End: 25-Jan-2018 12:03 e effects, compliant with dosing regimen and considered effective by patient. Patient sleeps 10 hours per night. Nutrition: inappropriate diet. blood pressure range :. Note for Follow up for chronic me dical issues: Follow up for elevated triglycerides, and uric acid, [ADDITIONAL REASON] Follow up tests - Diagnostic tests include other (labs). Date: (01/19). Encounter Diagnosis: Nonsmoker, BMI 35.0-35.9,adult, Hypertension, Postmenopausal (Renamed from Postmenopausal status), Hypertriglyceridemia, Elevated uric acid in blood, Encounter for screening for malignant neoplasm of colon (Renamed from Special screening for malignant neoplasms, colon) [facility] Office Visit On: 21-Oct-2017 8:09 Encounter Reason: Physical female exam - Last seen between 3-6 months ago. General health: feels well with no complaints, has good energy level and is sleeping well. The patient's appetite is normal. Nutrition: normal/ad End: 21-Oct-2017 11:47 equate. Exercises 3 days per week. Sleeps on average 6 hours per night. Normal bowel and bladder habits. Safety measures include appropriate use of safety belts and home smoke detectors. There are no cu rrent emotional problems. Note for Physical exam: Physical exam for work.Encounter Diagnosis: Nonsmoker, Physical exam without abnormal findings (Renamed from Encounter for routine adult health examination without abnormal findings), Cough, BMI 35.0-35.9,adult, Elevated uric acid in blood, Hypertriglyceridemia, sporadic, Postmenopausal (Renamed from Postmenopausal status) [facility] Annotation/Addendum On: 05-Aug-2017 13:01 Encounter Diagnosis: Breast cancer screening End: 05-Aug-2017 13:02 [facility] Office Visit On: 16-Jun-2017 10:30 Encounter Reason: Cough - Symptoms include cough and wheezing. The cough is described as barky. Cough onset was 4 month(s) ago. Note for Cough: Cant get rid of cough since Jan, [facility]oldsEncounter Diagnosis: End: 16-Jun-2017 11:59 BMI 35.0-35.9,adult, Nonsmoker, Cough, Cramps of right lower extremity, Asthma [facility] Annotation/Addendum On: 04-Mar-2017 16:03 Encounter Diagnosis: Cervical herniated disc End: 04-Mar-2017 16:04 [facility] Phone Encounter On: 30-Jul-2016 14:24 Encounter Diagnosis: Encounter for screening mammogram for breast cancer (Renamed from Encounter for screening mammogram for malignant neoplasm of breast) End: 30-Jul-2016 14:26 [facility] Office Visit On: 09-Jul-2016 14:26 Encounter Reason: Cough - Symptoms include cough, dyspnea and wheezing. The cough is described as non-productive. The cough occurs constantly. Previous presentation included a cough. Note for Cough: started 2 weeks ago End: 09-Jul-2016 15:21 after vacation on airplane returned with coughEncounter Diagnosis: BMI 33.0-33.9,adult, Nonsmoker, Cough, Allergic rhinitis due to other allergen (477.8), Asthma [facility] Annotation/Addendum On: 13-Feb-2016 8:54 Encounter Diagnosis: Cervical radiculopathy, acute (Renamed from Acute cervical radiculopathy) End: 13-Feb-2016 8:59 [facility] Office Visit On: 30-Nov-2015 6:45 Encounter Reason: Neck Pain - This condition occurred without any known injury. Symptoms include neck pain, neck stiffness, impaired range of motion and shoulder pain. Symptoms are located in the left posterior neck and End: 30-Nov-2015 12:34 right posterior neck. The pain radiates to the left shoulder and right shoulder. The patient describes the pain as burning. The symptoms occur constantly. The patient describes symptoms as worsening. Cu rrent treatment includes massage. By report there is good compliance with treatment. Previous presentation included neck pain, neck stiffness and shoulder pain., [ADDITIONAL REASON] Follow up tests - Diagnostic tests include other (cervical spine). Encounter Diagnosis: Unspecified Diagnosis, Cervical radiculopathy, acute (Renamed from Acute cervical radiculopathy) [facility] Office Visit On: 16-Nov-2015 6:57 Encounter Reason: Neck Pain - This condition occurred without any known injury. Symptoms include neck pain, neck stiffness, impaired range of motion and shoulder pain. Symptoms are located in the left posterior neck and End: 16-Nov-2015 11:04 right posterior neck. The pain radiates to the left shoulder and right shoulder. The patient describes the pain as burning. The symptoms occur constantly. The patient describes symptoms as worsening. Cu rrent treatment includes massage. By report there is good compliance with treatment. Previous presentation included neck pain, neck stiffness and shoulder pain.Encounter Diagnosis: Cervical radiculopathy, acute (Renamed from Acute cervical radiculopathy) [facility] Office Visit On: 19-Oct-2015 11:16 Encounter Reason: Physical female exam - General health: feels well with minor complaints (neck), has good energy level and is sleeping well. The patient's appetite is normal. Nutrition: normal/adequate. Exercises 3 days End: 19-Oct-2015 11:55 per week. Sleeps on average 5 hours per night. Normal bowel and bladder habits. Safety measures include appropriate use of safety belts and home smoke detectors. There are no current emotional problems.Encounter Diagnosis: Well Female (V72.31) (II) [facility] Annotation/Addendum On: 06-Jul-2015 13:21 Encounter Diagnosis: Breast cancer screening End: 06-Jul-2015 13:23 [facility] Annotation/Addendum On: 15-May-2015 12:06 Encounter Diagnosis: Unspecified Diagnosis End: 15-May-2015 12:22 [facility] Office Visit On: 24-Apr-2015 10:53 Encounter Reason: Follow up acute care visit - The patient feels the same. Patient has been compliant with instructions. Current medication use: no side effects. The medical issues the patient is following up for include high blood pressure. End: 24-Apr-2015 11:34 Encounter Diagnosis: Hypertension [facility] Office Visit On: 10-Apr-2015 9:27 Encounter Reason: Hammer Toe Deformity - The last clinic visit was month(s) ago. No changes in management were made at the last visit. Symptoms include toe pain, toe deformity and toe stiffness. Symptoms are located in t End: 10-Apr-2015 11:13 he right third toe. Pain radiates to the right arch. The patient describes the pain as sharp. Onset was gradual 6 year(s) ago. The symptoms occur constantly. The episodes occur daily. Associated symptom s include foot pain. The patient is not currently being treated for this problem. Initial presentation included toe pain, toe deformity and toe stiffness. Since diagnosis the disease has been worsening. Previous presentation included toe pain, toe deformity, toe stiffness and foot pain., [ADDITIONAL REASON] Hypertension - blood pressure range : (119-158 systolic to 86- 102). Encounter Diagnosis: Hypertension, Ganglion cyst of foot, Hammer toe of second toe of right foot [facility] Phone Encounter On: 04-Jan-2015 7:10 Encounter Diagnosis: Unspecified Diagnosis End: 04-Jan-2015 7:12 [facility] Office Visit On: 29-Nov-2014 8:15 Encounter Reason: Physical female exam - Last seen between 1-3 months ago. General health: feels well with minor complaints (off balance from cruise), has good energy level and is sleeping well. The patient's appetite i End: 29-Nov-2014 10:24 s increased. Nutrition: normal/adequate. Exercises 7 days per week. Sleeps on average 7 hours per night. Normal bowel and bladder habits. Safety measures include appropriate use of safety belts, appropr iate use of helmets and home smoke detectors. There are no current emotional problems. screening, mammography (couple years).Encounter Diagnosis: Physical exam for work/school/camp (Renamed from Encounter for school health examination), Hypercholesteremia (272.0) [facility] Office Visit On: 09-Oct-2014 11:29 Encounter Reason: Forms - The patient presents to the office to be evaluate for other: (see scanned in form filled out).Encounter Diagnosis: PREVENTION OF TETANUS (V03.7), Motion sickness End: 09-Oct-2014 13:24 [facility] Office Visit On: 15-May-2014 12:54 Encounter Reason: Cough - The onset of the cough has been sudden. The cough occurs all the time. The symptoms are aggravated by supine posture. The symptoms have been associated with wheezing, while the symptoms have not been associated with fever. End: 15-May-2014 14:13 Encounter Diagnosis: ASTHMA, UNSPECIFIED, WITH ACUTE EXACERBATION (493.92), Cough (786.2), Wheezing (786.07) [facility] Office Visit On: 16-Aug-2013 10:56 Encounter Reason: Physical female exam - General health: feels well with no complaints, has good energy level and is sleeping well. The patient's appetite is increased. Nutrition: normal/adequate. Exercises 7 days per we End: 16-Aug-2013 11:41 ek. Sleeps on average 7 hours per night. Normal bowel and bladder habits. screening, mammography (couple years)., [ADDITIONAL REASON] Follow up tests - Date: (08/11/13 blood work). Encounter Diagnosis: Hypertension (401.0), Hypercholesteremia (272.0) , Work Physical (V70.5) [facility] Office Visit On: 04-Feb-2013 9:54 Encounter Reason: Follow up acute care visit - The patient does not feel well and worsening. Patient has been compliant with instructions. Current medication use: no side effects, compliant with dosing regimen and not co End: 04-Feb-2013 14:53 nsidered effective by patient. The medical issues the patient is following up for include All identified problems below and other (bronchitis).Encounter Diagnosis: Cough (786.2), BRONCHITIS, NOT SPECIFIED ACUTE OR CHRONIC (490.), Wheezing (786.07) [facility] Annotation/Addendum On: 10-Jan-2013 9:25 Encounter Diagnosis: Unspecified Diagnosis End: 10-Jan-2013 9:26 [facility] Office Visit On: 10-Jan-2013 9:01 Encounter Reason: Cough - The onset of the cough has been acute. The cough is characterized as dry. The cough occurs all the time. There has been no associated fever or runny nose. Note for Cough : Since Th, Coughin to point of vomit End: 10-Jan-2013 9:23 Encounter Diagnosis: Hypertension (401.0), Cough (786.2), BRONCHITIS, NOT SPECIFIED ACUTE OR CHRONIC (490.) [facility] Office Visit On: 30-Jun-2012 8:42 Encounter Reason: Skin Problems - The onset of the skin problems has been gradual and they have been occurring in a persistent pattern for weeks. The problem is characterized as a change in skin color. Lesions are descri End: 30-Jun-2012 11:38 bed as red. There has been no associated itching.Encounter Diagnosis: Lipoma of axilla (214.1), Lipoma of lower extremity (214.8) [facility] Office Visit On: 28-Jun-2012 10:23 Encounter Reason: Skin Lesions - Onset was 10 year(s) ago.Encounter Diagnosis: Unspecified Diagnosis, Hypertension (401.0), Hypercholesteremia (272.0), Sebaceous cyst (706.2) End: 28-Jun-2012 16:17 [facility] Office Visit On: 30-Mar-2012 8:44 Encounter Reason: Follow up for chronic medical issues - The patient feels well with no complaints, has good energy level and is sleeping well. Patient has been compliant with instructions. Current medication use: experi End: 30-Mar-2012 9:16 encing side effects (norvasc- edema), non-compliant with dosing regimen (d/c norvasc) and considered effective by patient. Patient sleeps 7 hours per night. Nutrition: balanced diet. The medical issues the patient is following up for include All identified problems below, asthma, gastric reflux, high blood pressure and high cholesterol. blood pressure range : (137/92)., [ADDITIONAL REASON] Follow up tests - Diagnostic tests include other (labs). Date: (03/29/12). Follow up visit with no current symptoms. Past medical history includes asthma, hypertension and other (GERD, CHO). Encounter Diagnosis: Hypertension (401.0), Hypercholesteremia (272.0), Conjunctival irritation (372.89) [facility] Office Visit On: 22-Dec-2011 10:20 Encounter Reason: Follow up for chronic medical issues - The patient feels well with no complaints, has good energy level and is sleeping well. Patient has been compliant with instructions. Current medication use: no inna End: 22-Dec-2011 15:17 e effects, compliant with dosing regimen and considered effective by patient. Nutrition: balanced diet. The medical issues the patient is following up for include All identified problems below, asthma, gastric reflux and high blood pressure. Note for Follow up for chronic medical issues: feels like a tornado in my chest,the inhaler helped , [ADDITIONAL REASON] Follow up tests - Diagnostic tests include other (labs). Date: (12/17/11). Follo w up visit with no current symptoms. There is no family history of breast cancer, cardiovascular disease, cystic fibrosis, Down's syndrome, mental retardation or myocardial infarction before age 55. Encounter Diagnosis: Hypercholesteremia (272.0), Cough (786.2), Hypertension (401.0) [facility] Office Visit On: 10-Nov-2011 10:36 Encounter Reason: Cough - The onset of the cough has been sudden. The cough is characterized as dry. The amount of sputum produced is scanty. The cough occurs all the time. The symptoms have been associated with wheezin End: 10-Nov-2011 10:55 g, while the symptoms have not been associated with fever, headache, hoarseness, runny nose or sore throat.Encounter Diagnosis: BRONCHITIS, NOT SPECIFIED ACUTE OR CHRONIC (490.), Cough (786.2), Wheezing (786.07) [facility] Office Visit On: 16-Sep-2011 9:01 Encounter Reason: Follow up for chronic medical issues - The patient feels well with no complaints, has good energy level and is sleeping well. Patient has been compliant with instructions. Current medication use: no inna End: 16-Sep-2011 9:31 e effects, compliant with dosing regimen and considered effective by patient. Patient sleeps 7 hours per night. Nutrition: balanced diet (attempted). The medical issues the patient is following up for i nclude All identified problems below, asthma, gastric reflux, high blood pressure and high cholesterol. blood pressure range : (121/83 130/95)., [ADDITIONAL REASON] Follow up tests - Diagnostic tests include other (labs). Date: (09/12/11). Follow up visit with no current symptoms. There is no family history of breast cancer, cardiovascular disease, cystic fibrosis, Down's syndrome, mental retardation or myocardial infarction before age 55. Past medical history includes asthma, hypertension and other (gerd, cho). Encounter Diagnosis: Hypertension (401.0), Hypercholesteremia (272.0) [facility] Office Visit On: 28-May-2011 8:45 Encounter Reason: Follow up for chronic medical issues - The patient feels well with no complaints, has good energy level and is sleeping well. Patient has been compliant with instructions. Current medication use: no inna End: 28-May-2011 9:45 e effects, compliant with dosing regimen and considered effective by patient. Patient sleeps 6 hours per night. Nutrition: balanced diet. The medical issues the patient is following up for include All i dentified problems below, asthma, gastric reflux, high blood pressure and high cholesterol. blood pressure range : (124/77 124/80 129/85 129/82)., [ADDITIONAL REASON] Follow up tests - Diagnostic tests include other (labs). Date: (05/16/11). Follow up visit with no current symptoms. There is no family history of breast cancer, cardiovascular disea se, cystic fibrosis, Down's syndrome, mental retardation or myocardial infarction before age 55. Past medical history includes asthma, hypertension and other (GERD, CHO, ). Encounter Diagnosis: Hypercholesteremia (272.0), Hypertension (401.0), Proteinuria (791.0), Asthma (493.11) [facility] Office Visit On: 26-Feb-2011 9:09 Encounter Reason: Follow up Meds - The patient feels well with no complaints, has good energy level and is sleeping well. Patient has been compliant with instructions. Current medication use: no side effects, compliant w End: 26-Feb-2011 9:25 ith dosing regimen and considered effective by patient. Patient sleeps 7 hours per night. Impact of disease: no emotional impact. Nutrition: inappropriate diet and no supplemental vitamins & iron.Encounter Diagnosis: Hypertension (401.0) [facility] Office Visit On: 11-Feb-2011 10:44 Encounter Reason: Follow up tests - Diagnostic tests include other (02/06/11). Date: (02/06/11). There is a family history of breast cancer (P aunts) , while there is no family history of cardiovascular disease, cystic fib End: 11-Feb-2011 11:16 rosis, Down's syndrome, mental retardation or myocardial infarction before age 55. Past medical history includes asthma, hypertension and other (cholesterol).Encounter Diagnosis: Proteinuria (791.0), Cough (786.2), Hypertension (401.0), Hypercholesteremia (272.0) [facility] Annotation/Addendum On: 05-Feb-2011 14:22 Encounter Diagnosis: Unspecified Diagnosis End: 05-Feb-2011 14:23 [facility] Office Visit On: 29-Jan-2011 10:29 Encounter Reason: Follow up tests - Diagnostic tests include other (labs). Date: (01/15/11). Follow up visit with no current symptoms. There is no family history of breast cancer, cardiovascular disease, cystic fibrosis, End: 29-Jan-2011 11:03 Down's syndrome, mental retardation or myocardial infarction before age 55. Past medical history includes asthma, hypertension and other (cholesterol, GERD).Encounter Diagnosis: Cough (786.2), Hypercholesteremia (272.0), Proteinuria (791.0), Hypertension (401.0), Irregular Menstraul Cycle (626.4) [facility] Office Visit On: 15-Jan-2011 10:57 Encounter Reason: high blood pressure - The symptoms have been associated with family history of hypertension and obesity, while the symptoms have not been associated with excessive caffeine intake or use of nasal decon End: 15-Jan-2011 16:27 gestants. blood pressure range : (140/82 118/68 130/90 110/78 140/96).Encounter Diagnosis: Hypertension (401.0), Chest pain (786.59) [facility] Office Visit On: 18-Dec-2010 10:36 Encounter Reason: Eye Redness - The last clinic visit was 2 week(s) ago. No changes in management were made at the last visit. Symptoms include eye redness and lid bumps, while symptoms do not include eye discharge, eye End: 18-Dec-2010 10:49 pain, eye itching, eye burning, foreign body sensation, visual distortion or vision loss. Symptoms are located in the right eye. Onset was sudden week(s) ago. There is no known event that preceded sympt om onset. The symptoms occur intermittently. The patient describes this as moderate in severity and unchanged.Encounter Diagnosis: ACUTE CONJUNCTIVITIS (372.01), Allergic rhinitis due to other allergen (477.8) [facility] Office Visit On: 06-Nov-2009 10:09 Encounter Reason: Follow up acute care visit - The patient feeling better since last seen and improving. Patient has been compliant with instructions. Current medication use: no side effects ,compliant with dosing regime End: 06-Nov-2009 10:25 n and considered effective by patient. Patient sleeps 7 hours per night. The medical issues the patient is following up for include All identified problems below and other (cervical strain). Encounter Diagnosis: Cervical strain (847.0), Hypertension (401.0) [facility] Office Visit On: 12-Oct-2009 9:54 Encounter Reason: Back pain - The onset of the pain has been gradual and has been occurring in an intermittent pattern for 2 years. The course has been increasing. The pain is characterized as piercing and shooting. The End: 12-Oct-2009 10:34 pain is described as being located in the upper back. The pain does not radiate. There are no precipitating factors. The symptoms have no aggravating factors. The symptoms have no relieving factors. Encounter Diagnosis: Cervical strain (847.0) [facility] Office Visit On: 04-Sep-2009 10:41 Encounter Reason: Follow up, Diagnostic Procedure Results - Diagnostic tests include ECG (08/31/09) ,treadmill exercise stress test (08/31/09) ,other () and ECHO (08/30/09). Follow up visit with no current symptoms. T End: 04-Sep-2009 11:57 here is no family history of breast cancer ,cardiovascular disease ,cystic fibrosis ,Down's syndrome ,mental retardation or myocardial infarction before age 55. Past medical history includes asthma ,hypertension and other (gerd). Encounter Diagnosis: Pre-operative examination, unspecified (V72.84), FIBROMATOSIS, PLANTAR FASCIAL (728.71), Spur, calcaneal (726.73), Gerd (530.81), Cellulitis and abscess of other specified sites (682.8), Hypertension (401.0), Asthma (493.11) [facility] Annotation/Addendum On: 28-Aug-2009 10:11 Encounter Diagnosis: Abnormal EKG(794.31) End: 28-Aug-2009 10:12 [facility] Office Visit On: 28-Aug-2009 9:26 Encounter Reason: Preoperative evaluation - The patient feels well with no complaints ,has good energy level and is sleeping well. Surgical procedures include: other (planter fascitis and heel spur of R foot). Date of pr End: 28-Aug-2009 9:59 ocedure: (09/07/09). There have been no problems with general anesthesia or blood/blood products. Encounter Diagnosis: Pre-operative examination, unspecified (V72.84), FIBROMATOSIS, PLANTAR FASCIAL (728.71), Spur, calcaneal (726.73), Cellulitis and abscess of other specified sites (682.8), Mitral Valve Prolapse (746.9), Hypertension (401.0), Asthma (493.11), Gerd (530.81) [facility] Office Visit On: 17-Aug-2009 9:45 Encounter Diagnosis: Cellulitis and abscess of other specified sites (682.8), hyperpigmentation End: 19-Aug-2009 21:02 [facility] Office Visit On: 16-Aug-2009 9:23 Encounter Reason: Follow up acute care visit - The patient feeling better since last seen and improving. Patient has been compliant with instructions. Patient sleeps 7 hours per night. The medical issues the patient is f End: 16-Aug-2009 10:28 ollowing up for include All identified problems below and other (cellulitis). Encounter Diagnosis: Cellulitis and abscess of other specified sites (682.8) [facility] Office Visit On: 15-Aug-2009 9:01 Encounter Reason: Follow up acute care visit - The patient feeling better since last seen and improving. Patient has been compliant with instructions. Current medication use: no side effects ,compliant with dosing regime End: 15-Aug-2009 12:51 n and considered effective by patient. The medical issues the patient is following up for include All identified problems below and other (skin infection). Encounter Diagnosis: Cellulitis and abscess of other specified sites (682.8) [facility] Office Visit On: 14-Aug-2009 9:40 Encounter Reason: Follow up acute care visit - The patient feeling better since last seen and improving. Patient has been compliant with instructions. Current medication use: no side effects. Patient sleeps 7 hours per n End: 14-Aug-2009 12:43 ight. Nutrition: balanced diet. The medical issues the patient is following up for include All identified problems below and cellulitis. Encounter Diagnosis: Cellulitis and abscess of other specified sites (682.8), Insect bite, nonvenomous of shoulder and upper arm, infected (912.5) [facility] Office Visit On: 13-Aug-2009 9:03 Encounter Diagnosis: Cellulitis and abscess of other specified sites (682.8), CANDIDIASIS, MOUTH (THRUSH) (112.0), Insect bite, nonvenomous of shoulder and upper arm, infected (912.5) End: 13-Aug-2009 9:53 [facility] Office Visit On: 07-Feb-2009 9:30 Encounter Reason: Follow up acute care visit - The patient feels the same. Patient has been compliant with instructions. Current medication use: no side effects. Patient sleeps 5 hours per night. Nutrition: balanced diet End: 07-Feb-2009 10:51 . The medical issues the patient is following up for include All identified problems below and other (Abd pain). Encounter Diagnosis: Abdominal Pain,RUQ(789.01) [facility] Office Visit On: 30-Jan-2009 8:41 Encounter Reason: Follow up acute care visit - The patient feeling better since last seen and improving. Patient has been compliant with instructions. Patient sleeps 7 hours per night. Nutrition: balanced diet. The medic End: 30-Jan-2009 9:25 al issues the patient is following up for include All identified problems below and other (Abd pain/ nausea ). Encounter Diagnosis: Abdominal Pain,RUQ(789.01) [facility] Office Visit On: 16-Jan-2009 10:21 Encounter Reason: Nausea - The onset of the nausea has been sudden and has been occurring in a persistent pattern for 4 days. The course has been increasing. The nausea has no relationship to meals. The symptoms have no End: 16-Jan-2009 10:59 aggravating factors. The symptoms have no relieving factors. The symptoms have been associated with headache (occipital, parietal- advil relives ), while the symptoms have not been associated with abdom inal pain ,chest pain ,dark urine ,diarrhea ,dysuria ,fever ,neck stiffness ,tinnitus or vertigo. Encounter Diagnosis: Abdominal Pain,RUQ(789.01), Nausea (787.02) [facility] Office Visit On: 09-Feb-2008 9:03 Encounter Reason: Foot Pain - The onset of the foot pain has been gradual (4-5 days) and has been occurring in an intermittent (present most of the time, occasionally go away for a few weeks) pattern for 5 years. The cou End: 09-Feb-2008 12:12 rse has been recurrent. The foot pain is severe (at worst). The foot pain is characterized as a sharp stabbing. The foot pain is described as being located in the dorsal foot. The foot pain is aggravate d by physical activity. The pain has not been relieved by anything. The symptoms have been associated with painful ROM and decreased ROM. Encounter Diagnosis: Pain in Joint, Other Spec Site (719.48) [facility] Office Visit On: 15-Sep-2007 10:26 Encounter Reason: Urinary problems - The onset of the urinary problems has been acute and they have been occurring in a persistent pattern for 1 weeks. The course has been constant. The urinary problems are described as End: 15-Sep-2007 11:22 moderate. The urinary problem is characterized as painful urination (lynch after urinates). There has been no associated fever / chills ,back pain ,nausea or blood in urine. Encounter Diagnosis: Vaginitis and vulvovaginitis, unspecified (616.10), SYMPTOMS INVOLVING URINARY SYSTEM; DYSURIA (788.1) [facility] Nurse Visit On: 28-Dec-2006 11:08 Encounter Diagnosis: SYMPTOMS INVOLVING URINARY SYSTEM; DYSURIA (788.1), Acute cystitis (595.0) End: 28-Dec-2006 11:33 [facility] Office Visit On: 22-Oct-2006 15:29 Encounter Reason: Foot Pain - The onset of the foot pain has been sudden and has been occurring in a persistent pattern for hours (this am I woke up and my left foor is painful and it is getting worse. I was stung last w End: 22-Oct-2006 16:16 [place] by a bee.). The course has been gradually worsening. The foot pain is moderate. The foot pain is characterized as a sharp with weight-bearing. The foot pain is described as being located in the hind foot. The foot pain is aggravated by physical activity. The pain has been relieved by elevation of leg. There has been no associated painful ROM or warmth. There have been no previous diagnostic tests. There have been no previous evaluations. These has been no previous physical therapy. There have been no previous surgeries. There has been no use of assistive devices. There has been no use of medications. Encounter Diagnosis: ACHILLES TENDINITIS (726.71), Urinary incontinence (788.30) [facility] Historical Summary On: 30-Mar-2006 10:35 [facility] End: 30-Mar-2006 10:38 Office Visit On: 04-Mar-2006 13:25 Encounter Reason: Well Women Exam - The patient feels well with no complaints ,has good energy level and is sleeping well. Pap smear: date of last pap: (2004). Contraceptive history: The patient is not using any method o End: 04-Mar-2006 14:49 f contraception at this time. Patient exercises 3 - 4 times per week (walk). The patient's libido is normal. The patient reports that she performs monthly self breast exam. breast cancer in first degree relative (aunt, grandmother). Menstruation: Last menstrual period date: (02-22-06). , [ADDITIONAL REASON] Pain on intercourse - The pain occurs constantly during intercourse ,after inter course ,at every attempt at intercourse and with certain sexual positions. The pain has been constant. The pain is described as moderate (3-4/10) and characterized as a cramp. Menses: irregular. The symptoms have no relieving factors. Encounter Diagnosis: Well Female (V72.31) (II), Urinary incontinence (788.30), Dyspareunia (625.0), Premenopausal menorrhagia (627.0), Hypercholesteremia (272.0) [facility] Office Visit On: 17-Feb-2006 13:29 Encounter Reason: new patient female physical - Last seen more than 1 year ago. General health: feels well with no complaints ,has good energy level and is sleeping well. The patient's appetite is normal. Nutrition: eati End: 17-Feb-2006 22:43 ng a variety of foods. Exercises 3 (3 x weekly walking , wanting to talk about why weight) days per week. Sleeps on average 7 hours per night. Elimination problems include urinary frequency (stress incontance, leaks all the time). , [ADDITIONAL REASON] Urinary problems - The onset of the urinary problems has been variable and they have been occurring in a persistent pattern for 2 years. The course has been recurrent. The urinary p roblems are described as moderate. Note for Urinary problems: Incontinence occurs with walking or any activity. Pt reports Kegels do not help. , [ADDITIONAL REASON] Pain on intercourse - The onset of the pain began gradually over time and has be en occurring for 2 years. The pain occurs constantly during intercourse (with thrusting). The pain has been recurrent. The pain is described as mild. The pain does not radiate. , [ADDITIONAL REASON] Menstrual problems - The menstrual problem is characterized as heavy menses ,irregular menses and abnormally long menses and has been occurring for years. The problem has been occur ring in an irregular pattern. 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
--- OUTSIDE RECORDS SUMMARY | 2018-05-25 02:25 | XMS RPT_ITS | Continuity of Care Document ---
:1965 Author Organization [facility] Address [address] [facility] [address] [place] [address] Phone Care Team Providers Name Role Phone Cher Sampson CNP Unavailable Wesley JOYA, Juan José Ayala Unavailable Lamonte Kamara Unavailable Dr. Collin Carrasco DO Unavailable Jany Sood Unavailable Dr. Antolin Rincon Unavailable Yvette Benavidez Unavailable Unavailable Jarrett SMITH, Florence Unavailable Unavailable Eric Soriano Unavailable Unavailable long, chaparro Unavailable Unavailable Unavailable Unavailable Problems Name Dates Details Abnormal EKG (R94.31, 794.31) Comments: for preop Status: Active Allergic rhinitis due to other allergen (J30.89, 477.8) Comments: add saline rinse Status: Active Asthma (J45.909, 493.90) Comments: Mild, and controlled Status: Active Asthma, intrinsic, with status asthmaticus (J45.902, 493.11) Comments: Spirometry next visit. Status: Active Back pain (M54.9, 724.5) Status: Active BMI 33.0-33.9,adult (Z68.33, V85.33) Status: [...] physical therapy, will get MRI send to [facility] adding gabapentin and muscle relax worsening Status: Active Cervical strain (S16.1XXA, 847.0) Comments: unrelieved with ibuprofen Status: Active Chest pain (R07.9, 786.59) Status: Active Cholecystectomy (Gall Bladder Removal) Status: Active Conjunctival irritation (H11.89, 372.89) Status: Active Cough (R05, 786.2) Comments: certrazine taking 2 qam Status: Active Cough (R05, 786.2) Status: Active Cough (R05, 786.2) Status: Active Cramps of right lower extremity [...] Status: Active Nonsmoker (Z78.9, V49.89) Status: Active Pain management (R52, 780.96) Status: Active Physical exam for work/school/camp (Renamed from Encounter for school health examination) (Z02.0, V70.5) Status: Active Physical exam without abnormal findings (Renamed from Encounter for routine adult health examination without abnormal findings) (Z00.00, V70.0) Status: Active Plantar fascial fibromatosis (M72.2, 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) Comments: rt Status: Active Postmenopausal (Renamed from Postmenopausal status) (Z78.0, V49.81) Comments: By Christal for hot flashes, hs had hysterectomy Status: [...] Active Unspecified Diagnosis Status: Active Vaccine for jaagfwaoxn-umflmhj-maqiqwxuu with poliomyelitis (Z23, V06.3) Status: Active Well Female (V72.31) (II) (Z00.00, V70.0) Status: Active Wheezing (R06.2, 786.07) Status: Active Medications Name Dates Details Bystolic 10 MG Oral Tablet 1 (one) Tablet daily for 30 days Quantity: 90 {Tablet} Refills: 3 Ordered:25-Jan-2018 Camilla ANNE Cher Edge CNP Start : 25-Jan-2018 Active Cetirizine HCl 10 MG Oral Tablet 2 (two) Tablet daily for 30 days Quantity: 30 {Tablet} Refills: 2 Ordered:21-Oct-2017 Camilla ANNE Cher Edge CNP Start : 21-Oct-2017 Active Estradiol 2 MG Oral Tablet 1 (one) Tablet daily for 90 days Quantity: 90 {Tablet} Refills: 3 Ordered:25-Jan-2018 Camilla ANNE Cher Edge CNP Start : 25-Jan-2018 Active Lipitor 20 MG Oral Tablet 1 Tablet daily for 90 days Quantity: 90 {Tablet} Refills: 0 Ordered:25-Jan-2018 Camilla ANNE Cher Edge CNP Start : 25-Jan-2018 Active ProAir HFA 108 (90 Base) MCG/ACT Inhalation Aerosol Solution 2 (two) Puff(s) tid prn for 0 days Quantity: 1 {Inhaler} Refills: 0 Ordered:19-Aug-2017 Camilla ANNE Cher Edge CNP Start : 19-Aug-2017 Active BACTRIM DS, 800-160MG (Oral Tablet) 1 (one) Tablet bid for 7 days Quantity: 14 {Tablet} Refills: 0 Ordered:20-Aug-2009 Camilla ANNE Cher Edge CNP Start : 20-Aug-2009 End : 27-Aug-2009 Inactive [...] days Quantity: 14 {Capsule} Refills: 0 Ordered:30-Jun-2012 Cher Sampson CNP, CNP, Mary E Start : 30-Jun-2012 End : 07-Jul-2012 Inactive LEVAQUIN, 500MG (Oral Tablet) 1 (one) Tablet daily for 7 days Quantity: 7 {Tablet} Refills: 0 Ordered:15-May-2014 Cher Sampson CNP, CNP, Mary E Start : 15-May-2014 End : 22-May-2014 Inactive LISINOPRIL, 5MG (Oral Tablet) 1 Tablet daily for 0 days Quantity: 30 {Tablet} Refills: 3 Ordered:11-Feb-2011 Fiorella Rae LPN Start : 15-Jan-2011 End : 11-Feb-2011 Inactive LIVALO, 2MG (Oral Tablet) 1 Tablet daily for 0 days Quantity: 30 {Tablet} Refills: 3 Ordered:28-May-2011 Butch SMITH Fiorella Start : 29-Jan-2011 End : 28-May-2011 Inactive MOTRIN, 400MG (Oral Tablet) Tablet bid for 7 days Quantity: 30 {Tablet} Refills: 0 Ordered:09-Feb-2008 Camilla TELECOMMUNICATIONS FIELD TECHNICIAN, Cher Wallace TELECOMMUNICATIONS FIELD TECHNICIAN, Cynthia Start : 09-Feb-2008 End : 10-Mar-2008 Inactive MYCELEX, 10MG (Mouth/Throat Mikey) 1 (one) Mikey 5 times daily for 10 days Quantity: 50 {Mikey} Refills: 0 Ordered:28-Aug-2009 Camilla TELECOMMUNICATIONS FIELD TECHNICIAN, Cher Wallace CNP, Cynthia Start : 13-Aug-2009 End : 23-Aug-2009 Inactive [...] days Quantity: 5 {Package} Refills: 1 Ordered:29-Nov-2014 Florence Farias LPN Start : 09-Oct-2014 End : 29-Nov-2014 Discontinued [...] evaluate with pelvic ultrasound. Will refer to CHIROPRACTOR ASSISTANT if persists. Status: Inactive as of 17-Jul-2008 [...] stable on vesicare Status: Inactive as of 28-Aug-2009 Vaginitis and vulvovaginitis (N76.0, 616.10) Status: Resolved as of 17-Jul-2008 Procedures Procedure Dates Details Hysterectomy Completed 17-May-2013 Date Value Details 22-Feb-2018 Spine Cervical (Routine) Result: Comments: See Note; NOTES: [facility] Imaging Services [address] [place] [address] Spine Cervical (Routine) MR#: [id number] Acct: [id number] Name: VONNIE GILBERT Rep #: [id number] : 1965 F 52 From: Janeth Diaz PCP: Cher Sampson NP Status: REG CLI Study: Spine Cervical (Routine) Date of Exam: 02/22/18 Exam# [id number] Ordering Dr: Edgar Rincon MD STUDY: MRI CER VICAL SPINE WITHOUT CONTRAST REASON FOR EXAM: Female, 52 years old. neck pain, burning. TECHNIQUE: Standardized fat and water weighted pulse sequences were obtained in the sagittal and axial planes. COMPARISON: December 07, 2015 FINDINGS: Normal foramen magnum and brainstem-cervical cord junction. Normal craniovertebral junction. Normal anterior atlantoaxial artic ulation. Normal odontoid process. There is straightening of the normal cervical lordosis. Normal vertebral bodies and posterior osseous elements. C2-3: Normal endplates. Normal disc height, signal and morphology. Normal central canal and intervertebral neural foramina. C3-4: There is minimal disc space narrowing and endplate spondylosis. There is no significant disc herniation, central canal or for aminal stenosis. C4-5: There is minimal disc space narrowing and endplate spondylosis. There is no significant disc herniation, central canal or foraminal stenosis. C5-6: There is mild disc space narr owing and endplates spondylosis. There is a minimal disc osteophyte complex without significant central canal stenosis. There is no foraminal stenosis. Findings are stable since prior examination C6-7: There is moderate disc space narrowing and endplates spondylosis. There is slightly decreased disc osteophyte complex with mild central canal stenosis now. There is uncovertebral arthropathy with minim al foraminal stenosis. C7-T1: Normal endplates. Normal disc height, signal and morphology. Normal central canal and intervertebral neural foramina. Normal cervical cord. Normal visualized soft tissue structures. MRI/Spine Cervical (Routine) IMPRESSION: Decreased protrusion at C6/C7. Electronically Signed: Janeth Diaz MD at 9:22 EST Tel , Service support , CC: Cher Sampson NP; Edgar Rincon MD Mushroom Growing Supervisor: Signed 29-Oct-2017 Dexa Bone Density Study Result: Comments: See Note; NOTES: [facility] Imaging Services [address] [place] [address] Dexa Bone Density Study MR#: [id number] Acct: [id number] Name: VONNIE GILBERT Rep #: [id number] : 1965 F 51 From: Pola García MD PCP: Cher Sampson NP Status: REG CLI Study: Dexa Bone Density Study Date of Exam: 10/29/17 Exam# [id number] Ordering Dr: Cher Sampson STUDY: DUAL ENERGY [...] Pola García MD at 15:46 EDT Tel [phone], Service support , CC: Cher Sampson NP Mushroom Growing Supervisor: Signed 20-Aug-2017 SCREENING MAMM (CAD), BILAT Result: Comments: See Note; NOTES: [facility] Imaging Services [address] [place] [address] SCREENING MAMM (CAD), BILAT MR#: [id number] Acct: [id number] Name: VONNIE GILBERT Rep # : [id number] : 1965 F 51 From: Pola García MD PCP: Cher Sampson NP Status: REG CLI Study: SCREENING MAMM (CAD), BILAT Date of Exam: 08/20/17 Exam# [id number] Ordering Dr: Cher Sampson [facility] MOGRAPHY - BILATERAL SCREENING REASON FOR EXAM: [...] delay biopsy of a clinically suspicious abnormality. [id number] Electronically Signed: Pola García MD at 12:57 EDT Tel [phone], Service support , CC: Cher Sampson NP Mushroom Growing Supervisor: Signed 20-Aug-2017 Downtime Report Result: Comments: See Note; NOTES: [facility] Medical Records Department [address] [place] [address] Downtime Report MR#: [id number] Acct: [id number] Name: VONNIE GILBERT Cruz Rep #: [id number] : 1965 51 From: Jesse Carrasco PCP: Cher Sampson NP Status: REG CLI This patient was seen during an EMR downtime August 03, 2017 - August 10, 2017. This patient may have a combination of paper and electronic documentation or all paper documentation. All documentation is viewable within the e-chart portion of Scytl for each patient visit. 19-Aug-2017 Downtime Report Result: Comments: See Note; NOTES: [facility] Medical Records Department [address] [place] [address] Downtime Report MR#: [id number] Acct: [id number] Name: MARTINVONNIE Cruz Rep #: [id number] : 1965 51 From: Jesse Carrasco MD PCP: Cher Sampson NP Status: DEP ER This patient was seen during an EMR downtime August 03, 2017 - August 10, 2017. This patient may have a combination o f paper and electronic documentation or all paper documentation. All documentation is viewable within the e-chart portion of Scytl for each patient visit. 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 Required: No Is patient in pain?: No Allergies No Known Allergies Allergy (Verified 04/09/17 16:32) Medications Atorvastatin Calcium [Lipitor] 20 mg PO DAILY 05/11/13 [History Confirmed 04/09/17] Nebivolol HCl [Bystolic] 10 mg PO DAILY 05/11/13 [History Confirmed 04/09/17] Estradiol [Estrace] 2 mg PO DAILY 10/04/16 [History Confirmed 04/09/17] Dejesus xicam 7.5 mg PO DAILY 10/04/16 [History Confirmed 04/09/17] PFSH Medical History HTN (hypertension) (Chronic) Surgical History [...] Diagnoses URI (upper respiratory infection) J06.9 04/09/17 1656 <Electronically signed by Donnie SOTOMAYOR> Date Donnie SOTOMAYOR Cosigner Signature: Date (if applicable) CC: 03-Apr-2017 Massage Therapy Evaluation Result: Comments: See Note; NOTES: [facility] [address] [place] [address]. 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 She was referred to the [facility] [...] CC: Cher Sampson NP LYUBOV Signed For [facility] care only, by signing this I certify the plan of care. Physicians Signature Date 16-Mar-2017 Urgent Care Visit Report Result: Comments: See Note; NOTES: [facility] [address] [place] [address] OFFICE VISIT Date of Service: 03/16/17 MR#: [id number] Acct: [id number] Name: VONNIE GILBERT Rep #: [id number] : 1965 Provider: Kris SOTOMAYOR Age/Sex: 51/F Location: [facility] Status: Signed Intake Vital Signs03/16/17 Height 5 [...] fatigue Exam Const General: cooperative, healthy appearing [facility] Head: normocephalic, atraumatic Ears: hearing grossly [...] the above. This note was generated with [employer] dictation software. It may contain incorrect words, spelling, and punctuation that were not noted in checking the note before signing. Orders Orders: Coding Level of Care Code Off vis,new,level 3 Diagnoses RUQ abdominal pain R10.11 03/16/17 1210 <Electronically signed by Kris SOTOMAYOR> Date Kris SOTOMAYOR Cosigner Signature: Date (if applicable) CC: 27-Feb-2017 Discharge Summary Result: Comments: See Note; NOTES: [facility] Medical Records Department [address] [place] [address] Discharge Summary 02/27/17 1309 MR#: [id number] Acct: [id number] Name: VONNIE GILBERT Rep #: [id number] : 1965 51 From: Yvrose Pickard PCP: [...] discharge this patient from our care at [facility]. Sincerely, Yvrose Pickard LMT 02/27/17 1315 <Electronically signed by Yvrose Pickard > Date Yvrose Pickard Cosigner Signature (if applicable): Date ____ CC: Cher Sampson NP; Yvrose Pickard Signed 04-Oct-2016 Emergency Department Summary Result: Comments: See Note; NOTES: [facility] Medical Records Department [address] [place] [address] Emergency Department Summary 10/04/16 2158 MR#: [id number] Acct: [id number] Name: VONNIE GILEBRT Rep #: [id number] : 1965 50 From: Jaylen Khan MD [...] Complaint: Fall Instructions: ED Laceration All Referrals: Cher Sampson [Primary Care Provider] - 10 Day for suture removal What to do if you have Problems For any increased pain, shortness of breath, bleeding, nausea or vomiting, chest pain, or any unexpected problems, contact your Primary Care Provider. Call [facility] ([phone]) or report to the closest Emergen cy Room. Call 911 if necessary. 10/04/16 9769 <Electronically signed by Jaylen Khan MD> Date Jaylen Cintron (If Indicated): Date CC: Cher Sampson 15-Aug-2016 SCREENING MAMM (CAD), BILAT Result: Comments: See Note; NOTES: [facility] Imaging Services [address] [place] [address] Verdana 4d SCREENING MAMM (CAD), BILAT MR#: [id number] Acct: [id number] Name: Gwen GILBERT Rep #: [id number] : 1965 F 50 From: Pola García MD PCP: Cher Sampson Status: REG CLI Study: SCREENING MAMM (CAD), BILAT Date of Exam: 08/15/16 Exam# [id number] Ordering Dr: Jonathan Sampson ry MAMMOGRAPHY - BILATERAL SCREENING REASON FOR EXAM: [...] delay biopsy of a clinically suspicious abnormality. [id number] Electronically Signed: Pola García MD at 10:21 EDT Tel [phone], Serv ice support , CC: Cher Sampson Mushroom Growing Supervisor: Signed 04-Mar-2016 PT Discharge Summary Result: Comments: See Note; NOTES: [address] [place], [place] [address] Fax REHABILITATION SERVICES DISCHAR GE SUMMARY MR#: [id number] Acct: [id number] Name: CHELLYVONNIE GOMEZ Cruz Rep #: [id number] : 1965 50 From: Susu Malin Referring DrAshutosh: Cher Sampson Status: DIS RCR Eval Date: [...] the patient from our care at the [facility] facility. Susu Malin LMT T: REG JOB: [id number] &#60 ;Electronically signed by Susu Malin > 03/04/16 0643 CC: Cher Sampson Signed 28-Feb-2016 PT Discharge Summary Result: Comments: See Note; NOTES: [facility] Therapy [address] [place], [place] [address] Fax REHABILITATION SERVICES DISCHAR GE SUMMARY MR#: [id number] Acct: [id number] Name: VONNIE GILBERT Rep #: [id number] : 1965 50 From: Susu Malin Referring DrAshutosh: Cher Sampson Status: DIS RCR Eval Date: [...] the patient from our care at the [facility] facility. Susu Malin LMT T: NTS JOB: [id number] &#60 ;Electronically signed by Susu Malin > 02/28/16 1658 CC: Cher Sampson Signed 29-Jan-2016 PT D/C of Non Returning Pt (1) Result: Comments: See Note; NOTES: [facility] [place] [address] Fax REHABILITATION SERVICES DISCHAR GE SUMMARY MR#: [id number] Acct: [id number] Name: VONNIE GILBERT Rep #: [id number] : 1965 50 From: Noam Martinez PT, Cert. MDT, OCS Referring Dr.: Cher Sampson Status: REG RCR Insurance: [facility] [employer] - Discharge Summary (1) - Patient [...] appropriate by the physician. Thank you! Noam Androsik, PT, <Electronica lly signed by Noam Martinez PT, Cert. MDT, OCS> 01/29/16 0926 CC: Cher Sampson BRIGITTE Signed 07-Dec-2015 Spine Cervical (Routine) Result: Comments: See Note; NOTES: [facility] Imaging Services [address] [place] [address] Verdana 4d Spine Cervical (Routine) MR#: [id number] Acct: [id number] Name: NOHEMI GILBERT Rep #: [id number] : 1965 F 49 From: Kendal Cox DO PCP: Cher Sampson Status: REG CLI Study: Spine Cervical (Routine) Date of Exam: 12/07/15 Exam# [id number] Ordering Dr: Cher Sampson STUD Y: MRI CERVICAL SPINE WITHOUT CONTRAST REASON [...] at 1:40 EDT Tel , Service support [phone], CC: Cher Sampson Mushroom Growing Supervisor: Signed 19-Nov-2015 Inital Evaluation (1) - PT Result: Comments: See Note; NOTES: [facility] [address] [place] [address]. [address] [place], [place] [address] Fax REHABILITATION SERVICES INITIA L EVALUATION MR#: [id number] Acct: [id number] Name: VONNIE GILBERT Rep #: [id number] : 1965 49 From: Noam Osman Referring Dr.: Cher Sampson Status: REG RCR Insurance: [facility] Patient's Visit Information VONNIE GILBERT is a [...] to be FAXED BACK to us at [phone] for Medicare purposes. Please let me know if there are questions or concerns regarding this plan of care. Physician Si gnature: Date: <Electronically signed by Noam Osman > 11/19/15 1129 CC: Cher Sampson KARLEY Sign ed For Medicare only, by signing this I certify the plan of care. Physicians Signature Date 16-Nov-2015 Cerv Spine 4 or 5 Views Result: Comments: See Note; NOTES: [facility] Imaging Services [address] [place] [address] Verdana 4d Cerv Spine 4 or 5 Views MR#: [id number] Acct: [id number] Name: VONNIE GILBERT Rep #: [id number] : 1965 F 49 From: Pola García MD PCP: Cher Sampson Status: REG CLI Study: Cerv Spine 4 or 5 Views Date of Exam: 11/16/15 Exam# [id number] Ordering Dr: Cher Sampson TUDY: X-RAY - CERVICAL SPINE REASON FOR EXAM: [...] Pola García MD at 14:54 EDT Tel [phone], Service support [phone], CC: Cher Sampson Mushroom Growing Supervisor: Signed 01-Aug-2015 Inital Evaluation - PT Result: Comments: See Note; NOTES: [facility] [address] [place] [address]. [address] [place] [address] Fax REHABILITATION ROSE INITIAL EVALUATION MR#: [id number] Acct: [id number] Name: VONNIE GILBERT Rep #: [id number] : 1965 49 From: Susu Garcia Referring DrAshutosh: Cher Sampson Status: REG RCR Insura nce: ON LICENSE OF [facility] Eval Date: DATE OF SERVICE: 03/30/2015 REFERRING PHYSICIAN: Dr. 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 Sampson [...] sessions. Susu Garcia LMT T: REG JOB: [id number] <Electronically signed by Susu Garcia > 08/01/15 1909 CC: Signed For Medicare only, by signing this I certify the plan of care. Physicians Signature Date 20-Jul-2015 Bilat Scrn Digital AND CAD Result: Comments: See Note; NOTES: [facility] Imaging Services [address] [place] [address] Verdana 4d Bilat Scrn Digital AND CAD MR#: [id number] Acct: [id number] Name: VONNIE GILBERT Rep #: [id number] : 1965 F 49 From: Pola García MD PCP: Cher Sampson Status: REG CLI Study: Bilat Scrn Digital AND CAD Date of Exam: 07/20/15 Exam# [id number] [place] sultana Dr: Cher Sampson MAMMOGRAPHY - BILATERAL SCREENING [...] delay biopsy of a clinically suspicious abnormality. [id number] Electronic ally Signed: Pola García MD at 12:25 EDT Tel [phone], Service support [phone], CC: Cher Sampson Mushroom Growing Supervisor: Signed 05-Mar-2015 PT Discharge Summary Result: Comments: See Note; NOTES: [facility] Physical Therapy [address] [place] [address] Fax REHABILITATION SE RVICES DISCHARGE SUMMARY MR#: [id number] Acct: [id number] Name: VONNIE GILBERT Rep #: [id number] : 1965 49 From: Susu Garcia Referring Dr.: Cher Sampson Status: DIS RCR Eval Da [...] that massage helped her greatly throughout the 2014. At this time, I am discharging the patient from our care at the [facility] facility. Susu Garcia LMT T: NTS JOB: [id number] <Electronically signed by Susu Garcia & #62; 03/05/15 1201 CC: Cher Sampson Signed 24-Apr-2014 Inital Evaluation - PT Result: Comments: See Note; NOTES: [address] [place] [address] Fax REHABILITATION SERVICES INITIAL EVALUATION MR#: [id number] Acct: [id number] Name: VONNIE GILBERT Rep #: [id number] : 1965 48 From: Susu Garcia Referring DrAshutosh: Cher Sampson Status: DIS RCR Insurance: ON LICENSE OF [facility] Eval Date: DATE OF SERVICE: 03/17/2014 REFERRING PHYSICIAN: Dr. Cher Sampson. 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 She was referred to the [facility] for massotherapy evaluation by Dr. Sampson [...] seen on an as-needed basis throughout the 2014 for a total of one-hour sessions. Susu Garcia LMT T: REG JOB: [id number] <Electronically signed by Susu Garcia > 04/24/14 1107 CC: Signed For Medicare only, by sign ing this I certify the plan of care. Physicians Signature Date 10-Mar-2014 PT Discharge Summary Result: Comments: See Note; NOTES: [facility] Physical Therapy [address] [place] [address] Fax REHABILITATION SERVICES DISCHARGE SUMMARY MR#: [id number] Acct: [id number] Name: VONNIE GILBERT R Rep #: [id number] : 1965 48 From: Susu Garcia Referring DrAshutosh: Cher Sampson Status: DIS RCR Eval Date: [...] the patient from our care at the [facility] facility. Susu Garcia LMT T: REG JOB: [id number] <Electronically signed by Susu Garcia > 03/10/14 1104 CC: Signed 16-Jun-2013 Inital Evaluation - PT Result: Comments: See Note; NOTES: [facility] Physical Therapy [address] [place] [id number] Fax REHABILITATION SERVICES INITIAL EVALUATION MR#: [id number] Acct: [id number] Name: VONNIE GILBERT Rep #: [id number] : 1965 47 From: Susu Garcia Referring DrAshutosh: Cher Ciesa Status: DIS RCR Insurance: ON LICENSE OF [facility] Eval Date: DATE OF SERVICE: 05/25/2013 REFERRING PHYSICIAN: Dr. Cher Sampson. 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 [...] Susu Garcia LMT T : REG JOB: [id number] <Electronically signed by Susu Garcia > 06/16/13 2808 CC: Signed For Medicare only, by signing this I certify the plan of c are. Physicians Signature Date 19-Feb-2013 PT Discharge Summary Result: Comments: See Note; NOTES: [facility] Physical Therapy [facility] [address] [facility]. [address] [place] [address] Fax REHABILITATION SERVICES DISCHARGE SUMMARY MR#: [id number] Acct: [id number] Name: VONNIE GILBERT Rep #: [id number] : 1965 47 From: Susu Garcia Referring Dr.: Cher Sampson Status: PRE RCR Eval Date: [...] greatly to decrease her pain throughout the 2012. At this time, I am discharging the patient from our care at the [facility]. Susu Garcia LMT T: REG JOB: [id number] &amp ;#60;Electronically signed by Susu Garcia > 02/19/13 1043 CC: * Signed 04-Feb-2013 Chest PA and Lateral Result: Comments: See Note; NOTES: [facility] Imaging Services [address] [place] [address] Radiology Report MR#: [id number] Acct: [id number] Name: VONNIE GILBERT Rep #: [id number] : 1965 F 47 From: Pola García MD PCP: Status: REG CLI Study: Chest PA and Lateral Date of Exam: 02/04/13 Exam# [id number] Ordering Dr: Cher Sampson STUDY: X-RAY CHEST [...] M.D. 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, [address] VLDL 62 mg/dL (Abnormal) Range: 5-40 LDL [...] 200-240 mg/dL Borderline >240 mg/dL High Risk 49-Ims-276612:25 Uric Acid Comments: [facility] [address] [place], [address] URIC 5.8 mg/dL (Normal) Range: 2.6-6.0 Comments: The drugs N-Acetylcysteine and Metamizole may falselydepress this assay. 5-Asa-180390:05 CBC, Employee Comments: [facility] [address] [place], [address] Absolute Lymph 2.40 {X10_3/ul} (Normal) Range: 0.83-4.51 [...] 4.2-5.4 WBC 7.4 K/mm3 (Normal) Range: 4.4-11.0 0-Rfp-219943:05 Employee Profile Comments: [facility] [address] [place], [id number] LDH 167 U/L (Normal) Range: 84-246 VLDL [...] Comments: Please note revised GLUCOSE reference range douxinqvu42/02/2018. 4-Hhu-927897:05 Nicotine Urine Drug Screen Comments: [facility] [address]efbs[address] [facility] [address] [place], [place], [id number] COT DRG SCREEN Negative (Normal) Comments: Cotinine [...] result, particularly whenpreliminary positive results are used. 8-Vkt-171722:05 Urinalysis, Employee Comments: [facility] [address] [place], [address] LEUK ESTERASE Negative /ul (Normal) OCCULT BLOOD-UR Negative /ul (Normal) NITRITE UR Negative (Normal) UROBILI Normal mg/dL (Normal) PROT DIPSTX Negative mg/dL (Normal) pH UR 5.0 (Normal) Range: 5.0 - 8.0 SP.GR. DIPSTX 1.020 (Normal) Range: 1.002-1.030 KETONE UR Negative mg/dL (Normal) BILIRUBIN URINE Negative mg/dL (Normal) GLUCOSE, UR Normal mg/dL (Normal) CLARITY Clear (Normal) COLOR Yellow (Normal) 47-Hxh-912910:27 CBC W/Diff, Automated Comments: [facility] Q[address]kk[address]omg[address] [facility] [place], [address] Absolute Lymph 2.41 {X10_3/ul} (Normal) Range: 0.83-4.51 [...] 4.2-5.4 WBC 9.1 K/mm3 (Normal) Range: 4.4-11.0 40-Lzu-115627:27 Comprehensive Metabolic Profil Comments: [facility] [address] [place], [address] GAP 9 (Normal) Range: 5-15 CO2 24.0 [...] 7-18 GLU 84 mg/dL (Normal) Range: 70-110 1-Hhp-790070:55 CBC, Employee Comments: [facility] [address] [place], [place], [address] Absolute Lymph 2.01 {X10_3/ul} (Normal) Range: 0.83-4.51 [...] 4.2-5.4 WBC 7.2 K/mm3 (Normal) Range: 4.4-11.0 8-Ecv-514857:55 Employee Profile Comments: [facility] [address] [place], [place], [phone] LDH 178 U/L (Normal) Range: 84-246 VLDL [...] 7-18 GLU 81 mg/dL (Normal) Range: 70-110 8-Oxu-037568:55 Nicotine Urine Drug Screen Comments: [facility] [address] [place], [place], [id number] COT DRG SCREEN Negative (Normal) Comments: Cotinine [...] result, particularly whenpreliminary positive results are used. :55 Urinalysis, Employee Comments: [facility] [address] [place], [place], [phone] LEUK ESTERASE Negative /ul (Normal) OCCULT BLOOD-UR Negative /ul (Normal) NITRITE UR Negative (Normal) UROBILI Normal mg/dL (Normal) PROT DIPSTX 15 mg/dL (Abnormal) pH UR 5.0 (Normal) Range: 5.0 - 8.0 SP.GR. DIPSTX 1.025 (Normal) Range: 1.002-1.030 KETONE UR Negative mg/dL (Normal) BILIRUBIN URINE Negative mg/dL (Normal) GLUCOSE, UR Normal mg/dL (Normal) CLARITY Clear (Normal) COLOR Yellow (Normal) :40 Culture, R/O Strep A Comments: [facility] [address] [place], [address] CUSTREPA See Note (Normal) Comments: [...] culture is required. :56 CBC, Employee Comments: [facility] [address] [place], [place], [id number] Absolute Lymph 2.21 {X10_3/ul} (Normal) Range: 0.83-4.51 [...] 4.2-5.4 WBC 7.0 K/mm3 (Normal) Range: 4.4-11.0 03-Oct-20159:56 Employee Profile Comments: [facility] [address] [place], [place], [address] LDH 190 U/L (Normal) Range: 84-246 VLDL [...] 70-110 :56 Nicotine Urine Drug Screen Comments: [facility] [address] [place], [place], [address] COT DRG SCREEN Negative (Normal) Comments: Cotinine [...] Urinalysis, Employee Comments: How was Urine Obtained? CLEAN [facility] [address] [place], [address] LEUK ESTERASE 25 /ul (Abnormal) OCCULT BLOOD-UR Negative /ul (Normal) NITRITE UR Negative (Normal) UROBILI Normal mg/dL (Normal) PROT DIPSTX 15 mg/dL (Abnormal) pH UR 5.0 (Normal) Range: 5.0 - 8.0 SP.GR. DIPSTX 1.020 (Normal) Range: 1.002-1.030 KETONE UR Negative mg/dL (Normal) BILIRUBIN URINE Negative mg/dL (Normal) GLUCOSE, UR Normal mg/dL (Normal) CLARITY Clear (Normal) COLOR Yellow (Normal) 8-Miy-539053:53 Lipid Profile Comments: [facility] [address] [place] [address], [address] VLDL 40 mg/dL (Normal) Range: 5-40 [...] 200-240 mg/dL Borderline >240 mg/dL High Risk 93-Ifb-913626:04 CBC, Employee Comments: Test performed at:[facility] [address] [place] [address] Absolute Lymph 2.04 {X10_3/ul} (Normal) Range: [...] 4.2-5.4 WBC 5.4 K/mm3 (Normal) Range: 4.4-11.0 61-Eul-342383:04 Employee Profile Comments: Test performed at:[facility] [address] [place], [place] [address] LDH 190 U/L (Normal) Range: 84-246 VLDL [...] Comments: Please note revised CREATININE reference range evyjgambv15/22/2015. BUN 17 mg/dL (Normal) Range: 7-18 GLU 89 mg/dL (Normal) Range: 70-110 99-Ppj-521767:04 Urinalysis, Employee Comments: Test performed at:[facility] [address] [place], [place] [id number] LEUK ESTERASE Negative /ul (Normal) OCCULT BLOOD-UR Negative /ul (Normal) NITRITE UR Negative (Normal) UROBILI Normal mg/dL (Normal) PROT DIPSTX Negative mg/dL (Normal) pH UR 6.0 (Normal) Range: 5.0 - 8.0 SP.GR. DIPSTX 1.015 (Normal) Range: 1.002-1.030 KETONE UR Negative mg/dL (Normal) BILIRUBIN URINE Negative mg/dL (Normal) GLUCOSE, UR Normal mg/dL (Normal) CLARITY Sl. Cloudy (Normal) COLOR Yellow (Normal) 36-Svv-058496:45 CBCEM ALC 1.82 {X10_3/ul} (Normal) Range: 0.83-4.51 [...] 4.2-5.4 WBC 5.9 K/mm3 (Normal) Range: 4.4-11.0 76-Ugw-389951:45 EMP Comments: [facility] EMPLOYEE ANNUAL [facility] ALBERTCATTNico BUSBY....NO NOT MAIL LDH 211 U/L (Normal) [...] CHOL 201 mg/dL (Abnormal) Comments: <200 mg/dL Ljdpdpslv374-193 mg/dL Borderline>240 mg/dL High Risk BID 0.14 [...] 7-18 GLU 103 mg/dL (Normal) Range: 70-110 21-Pzq-233946:45 UAEM DAMIÁN Negative /ul (Normal) UOB Negative /ul (Normal) SYLVIA Negative (Normal) UROBU Normal mg/dL (Normal) uPROTU Negative mg/dL (Normal) ELISE 5.0 (Normal) Range: 5.0 - 8.0 SGU 1.020 (Normal) Range: 1.002-1.030 KETU Negative mg/dL (Normal) BILIU Negative mg/dL (Normal) GLUR Normal mg/dL (Normal) UCLAR Sl. Cloudy (Normal) UCOL Yellow (Normal) 1-Yro-495790:12 DDIMQ 0.30 {FEUug/mL} (Normal) Range: 0.22-0.48 Comments: NORMAL D-Dimer level indicates no DVT or PE. 4-Ddb-191290:23 Pathology Report Comments: PERFORMED BY: [employer] [facility] Dmji80299 [facility] [id number] Information: [id number] See MATER Comments: Material submitted: .EXCISION RIGHT AXILLAClinical history: .LIPOMA;ETIOLOGY UNKNOWN;CHECK FOR MARGINS Note (Normal) Diagnosis:EXCISION RIGHT AXILLA:BENIGN LIPOMA..07/02/2012Electroni ca lly signed: .Forest Espinoza MD, PhD, PathologistGross description: .1 Container, formalin-filled, labeled with patient id entification.EXCISION RIGHT AXILLA:Received in formalin are multiple fragments of yellow tissuemeasuring 2.4 x 1.7 x 0.3 cm in aggregate. It is filtered through anembedding bag and submitted as received in cassette A./LMSLMS/LMSPathologist provided ICD-9:214.9CPT .833966 11-Uld-462069:23 LIPID VLDL 30 mg/dL (Normal) Range: 5-40 [...] Very High > or = 500 mg/dL 14-Fqk-847243:23 LIVER BID 0.08 mg/dL (Normal) Range: 0.00-0.30 BIT 0.50 mg/dL (Normal) Range: 0.00-1.00 ALK 86 U/L (Normal) Range: 50-136 ALT 30 U/L (Normal) Range: 12-78 ALB 4.1 g/dL (Normal) Range: 3.4-5.0 AST 17 U/L (Normal) Range: 15-37 TPROT 7.2 g/dL (Normal) Range: 6.4-8.2 :06 LIPID VLDL 41 mg/dL (Abnormal) Range: 5-40 [...] :24 A1C 5.3 % (Normal) Range: 4.2-6.3 65-Afd-140364:24 LIPID VLDL 20 mg/dL (Normal) Range: 5-40 [...] - 7.7 Postmenopausal 25.8 - 134.8Performed at: [facility] [address] [id number] Director: Mary Mccallum MD, Phone: [phone] :[phone] LIVER Comments: appt 02/11/11 D BILI [...] - 11.4 Postmenopausal 7.7 - 58.5 :22 PROT.HDOD614121 M-SPIKE,U SeeNote % (Normal) Comments: Result: Not Observed NOTE Comment (Normal) Comments: Protein electrophoresis scan will follow via computer,mail, or director search delivery. GAMMA GLOB,U 11.4 % (Normal) WSHFY-0-YPGD,U 9.0 % (Normal) BETA GLOB,U 24.2 % (Normal) JVXEN-7-IMBU,U 1.7 % (Normal) ALBUMIN,UR 53.7 % (Normal) PROTEIN,UR 24.6 mg/dL (Abnormal) Range: 0.0-15.0 :22 SPE [id number] INTERPRETATION Comment (Normal) Comments: The SPE pattern appears essentially unremarkable. Evidenceof monoclonal protein is not apparent.Protein electrophoresis scan will follow via computer,mail, or director search delivery. A/G RATIO 1.3 (Normal) Range: 0.7-2.0 GLOBULIN, TOTAL 2.9 g/dL (Normal) Range: 2.0-4.5 M-SPIKE SeeNote g/dL (Normal) Comments: Result: Not Observed GAMMA GLOBULIN 0.9 g/dL (Normal) Range: 0.5-1.6 BETA GLOBULIN 1.1 g/dL (Normal) Range: 0.6-1.3 ALPHA-2 GLOBUL 0.6 g/dL (Normal) Range: 0.4-1.2 ALPHA-1 GLOBUL 0.2 g/dL (Normal) Range: 0.1-0.4 ALBUMIN 3.9 g/dL (Normal) Range: 3.2-5.6 PROTEIN,TOTAL 6.8 g/dL (Normal) Range: 6.0-8.5 97-Efc-601363:03 CBCD,SMEAR DIFF RED CELL MORPH SeeNote {NORMAL} [...] NEGATIVE CLARITY CLEAR (Normal) COLOR YELLOW (Normal) 28-Ywj-488155:03 LIPID VLDL 41 mg/dL (Abnormal) Range: 5-40 [...] 200-240 mg/dL Borderline >240 mg/dL High Risk 78-Ifz-608526:03 MICROALB:CRE UR MALB:CREAT 41.3 {mg/g_CRE} (Abnormal) MICROALBUMIN,UR 66.0 mg/L (Normal) UR CREAT 159.7 mg/dL (Normal) :03 TSH 1.16 {uIU/mL} (Normal) Range: 0.358-3.74 91-Ude-747513:57 CERV SPINE,MIN 4 VIEWS Radiology Report See Note (Normal) Comments: Exam Number: [id number] CLINICAL:43-year-old female with neck pain. X-RAY EXAMINATION: [...] of spondylosis. Reported By: ELSA MOODY M.D. 7-Jhx-652423:33 MYOCARD PERF STRESS/REST [facility] Radiology Report See Note (Normal) Comments: Exam Number: [id number] MYOCARDIAL PERFUSION SCAN 11.3 mCi of Tc99m [...] fraction. Reported By: ANNA MARIE PANTOJA M.D. 88-Odv-738213:42 CBCD,SMEAR DIFF RED CELL MORPH SeeNote {NORMAL} [...] 4.2-5.4 WBC 6.8 K/mm3 (Normal) Range: 4.4-11.0 16-Tfv-333673:42 RENAL CL 103 mmol/L (Normal) Range: 98-107 [...] 2.5-4.9 GLU 102 mg/dL (Normal) Range: 70-110 36-Jit-621772:26 Aerobic Bacterial Culture Comments: PATIENT NOT FASTINGPERFORMED BY: [facility] Mzfmcd4873 [facility] [id number] Information: SRC: RIGHT ARM Antimicrobial MIHEAD (Normal) [...] oxacillin predictssusceptibility or resistance to (a) other kwsz-vbbndilzv-vcxthvbdbmdbctlne such as cloxacillin and dicloxacillin, (b) co (Normal) mbinationsof a penicillin and a beta-lactamase inhibitor, and(c) anti- staphylococcal cephalosporins. Routine testing of otherpenicillins, beta-lactam/beta-lactamase inhibitor combinations,cephems, and c arbapenems is not advised by the CLSI Standards(O874-P34, 2005). Aerobic Bacterial Final report (Normal) Culture 7-Wgh-098276:45 SED RATE ERYTHROCYTE (79895) Comments: PATIENT NOT FASTINGPERFORMED BY: [employer] [facility] Dbnseq6724 [facility] [id number] Sedimentation Rate-Westergren 2 mm/h (Normal) Range: 0-20 7-Eat-849831:45 CBC with manual diff (12538) Comments: PATIENT NOT FASTINGClinical Information: [id number] PERFORMED BY: [facility] Hfeynv7618 [facility] [id number] Baso (Absolute) 0.0 {x10E3/uL} (Normal) Range: 0.0-0.2 [...] FUNCTION PANEL Comments: PATIENT NOT FASTINGPERFORMED BY: [facility] HospitalYpjjul7969 [facility] [id number] (54936) Bilirubin, Direct 0.14 mg/dL (Normal) Range: 0.00-0.40 :45 Metabolic Panel, Comprehensive Comments: PATIENT NOT FASTINGPERFORMED BY: [facility] HospitalGszkca1020 [facility] [id number] (08405) A/G Ratio 2.0 (Normal) Range: 1.1-2.5 Albumin, [...] Sodium, Serum 139 mmol/L (Normal) Range: 135-145 1-Lce-665512:03 Urinalysis, Office (73464) UA - BLOOD Negative (Normal) UA - LEUKOCYTE ESTERASE Negative (Normal) UA - NITRITE Negative (Normal) UA - PH 6.0 (Normal) UA - PROTEIN Negative mg/dL (Normal) URINE UROBILINGN ABIGAIL TIMED Normal mg/dL (Normal) UA - BILIRUBIN Negative (Normal) UA - GLUCOSE Negative (Normal) UA - KETONES Negative mg/dL (Normal) UA - SPECIFIC GRAVITY 1.025 (Normal) 4-Azx-740141:47 ABDOMEN WITH IV CONTRAST Radiology Report See Note (Normal) Comments: Exam Number: [id number] HISTORYRight side abdominal pain. CT ABDOMEN WITH [...] likely represent cysts. Reported By: Minor Boateng 93-Gid-966742:21 ACUTE ABDOMEN, INC CHEST (MT) Radiology Report See Note (Normal) Comments: Exam Number: [id number] CLINICAL:Right upper quadrant pain. X-RAY EXAMINATION: CHEST [...] upper quadrant. Reported By: MICHAELA MARK M.D. 38-Ugv-662780:15 CBC with manual diff (06662) Comments: PATIENT NOT FASTINGClinical Information: [id number] PERFORMED BY: [facility]6370 [facility] [id number] Baso (Absolute) 0.0 {x10E3/uL} (Normal) Range: 0.0-0.2 [...] 11.7-15.0 WBC 6.0 {x10E3/uL} (Normal) Range: 4.0-10.5 30-Jwo-482283:15 Metabolic Panel, Comprehensive Comments: PATIENT NOT FASTINGPERFORMED BY: [facility] HospitalBofiyw3121 [facility] [id number] (24779) A/G Ratio 1.8 (Normal) Range: 1.1-2.5 Albumin, [...] Sodium, Serum 139 mmol/L (Normal) Range: 135-145 32-Cdi-080196:15 HEPATIC FUNCTION PANEL Comments: PATIENT NOT FASTINGPERFORMED BY: [facility] Ttnngt0679 [facility] [id number] (02450) Bilirubin, Direct 0.11 mg/dL (Normal) Range: 0.00-0.40 :34 CBC, EMPLOYEE HCT 42.3 % (Normal) Range: 37-47 HGB 14.6 g/dL (Normal) Range: 12.0-16.0 MCH 30.1 pg (Normal) Range: 27.0-32.0 MCHC 34.6 g/dL (Normal) Range: 32-36 MCV 87.1 fL (Normal) Range: 81-99 MPV 8.1 fL (Normal) Range: 6.5-12.0 PLT 349 K/mm3 (Normal) Range: 150-450 RBC 4.86 {M/mm3} (Normal) Range: 4.2-5.4 RDW 12.6 % (Normal) Range: 11.6-14.6 WBC 5.5 K/mm3 (Normal) Range: 4.4-11.0 :34 EMP PROF A/G 1.2 {RATIO} (Normal) Range: [...] for patient's is the eGFRmultiplied by 1.212. [facility] Laboratory uses the abbreviated Modification of [...] Disease W/O Kidney Disease>/= 90 Stage One Qususe89 - 89 Stage Two Suspect Decreased GFR30 [...] 2.6-6.0 VLDL 14 mg/dL (Normal) Range: 5-40 9-Gtg-303764:34 EMP URINALYSIS BILIRUBIN URINE SeeNote (Normal) Comments: [...] 0.2 EU/dl (Normal) Range: 0.2 - 1.0 58-Fcx-359086:52 Pap Lb, Ct-Ng, Comments: Source.............Cervical;EndocervicalNo. of containers..01 CYTYC Thin Prep VialPERFORMED BY: =G [address] [id number] HPV-hr . . (Normal) Chlamydia, Nuc. Acid Amp Negative (Normal) DIAGNOSIS: SPRCS (Normal) Comments: NEGATIVE FOR INTRAEPITHELIAL LESION AND MALIGNANCY.Satisfactory for evaluation. Endocervical and/or squamous metaplasticcells (endocervical component) are present.616.10 ; Unspecified vagin itis and vul vovaginitisNatalie A Nataliya, Weather Algorithm Scientist Gonococcus, Nuc. Acid Amp Negative (Normal) Note: PAPSMR (Normal) Comments: The Pap smear is a screening test designed to aid in the detection ofpremalignant and malignant conditions of the uterine cervix. It is not adiagnostic procedure and should not be used as the sole mean s of detectingcervical cancer. Both false-positive and false-negative reports do occur. . 42-Puv-984110:37 Urinalysis, Office (32585) UA - LEUKOCYTE ESTERASE Negative (Normal) Comments: aw UA - BILIRUBIN Negative (Normal) UA - BLOOD Negative (Normal) UA - GLUCOSE Negative (Normal) UA - KETONES Negative mg/dL (Normal) UA - NITRITE Negative (Normal) UA - PH 5.0 (Normal) UA - PROTEIN Negative mg/dL (Normal) UA - SPECIFIC GRAVITY 1.020 (Normal) URINE UROBILINGN ABIGAIL TIMED Normal mg/dL (Normal) :51 CBC, EMPLOYEE HCT 38.2 % (Normal) Range: [...] Range: 0.2 - 1.0 COLOR YELLOW (Normal) 05-Ong-666184:15 Urinalysis, Office (38527) UA - BILIRUBIN Large (Normal) UA - BLOOD Non Hemolyzed Trace (Normal) UA - GLUCOSE Negative (Normal) UA - KETONES Negative mg/dL (Normal) UA - LEUKOCYTE ESTERASE Trace (Normal) Comments: aw UA - NITRITE Negative (Normal) UA - PH 5.0 (Normal) UA - PROTEIN Negative mg/dL (Normal) UA - SPECIFIC GRAVITY 1.020 (Normal) URINE UROBILINGN ABIGAIL TIMED Normal mg/dL (Normal) 47-Fbw-582201:15 CULTURE, URINE URINE CULTURE See Note {CFU/mL} [...] 1.8 - 20.3Performed At: [facility] [place], [place] [id number] :52 PTT 30.5 s (Normal) Range: 24.6-36.6 [...] symptoms worsen Indication: Motion sickness Vaccine for hnvxvhnhub-ahgwewo-zozyumlhq with poliomyelitis : Eprescribed prescriptions (G8553) Indication: Vaccine for exburcfxde-mkxfyyu-cinphamze with poliomyelitis Cough : Follow up if [...] : FOLLOW UP IN 2 WEEKS with [facility] Indication: Cervical strain Cervical strain : exercises [...] specified site : FOLLOW UP TOMORROW with [facility] for IV vancomycin Day #3 Indication: Cellulitis and abscess of other specified site Insect bite, nonvenomous of shoulder and upper arm, infected : FOLLOW UP TOMORROW for IV vanco over 1 hr with [facility] Indication: Insect bite, nonvenomous of shoulder and upper arm, infected Cellulitis and abscess of other specified site : I/D Cyst/Abscess Indication: Cellulitis and abscess of other specified site Candidiasis, mouth : FOLLOW UP TOMORROW with [facility] Indication: Candidiasis, mouth Hypercholesteremia : Cholesterol - [...] (gastroesophageal reflux disease) Planned Observations LIPID PANEL (47915)Indication: Hypertriglyceridemia On: 27-Cmi-278811:01 Request URIC ACID BLOOD (68483)Indication: Elevated uric acid in blood On: 4-Htt-967487:41 Request Lipid Panel (40300)Indication: Hypertriglyceridemia, sporadic On: 1-Rms-678610:40 Request Comments: fasting Lipid Panel (61740)Indication: Hypercholesteremia On: 13-Qby-549601:20 Request Comments: to be done in 6 weeks at [facility] (87232)Indication: Cough On: 1-Kvl-470053:12 Request Lipid Panel (31384)Indication: Hypercholesteremia On: 57-Kup-177259:08 Request Comments: fasting HEPATIC FUNCTION PANEL (04397)Indication: Hypercholesteremia On: 77-Gof-007691:02 Request Lipid Panel (94107)Indication: Hypercholesteremia On: 39-Pcm-10280:26 Request Hemoglobin Glyclated (HGB A1C) (40977)Indication: Proteinuria On: :41 Request Lipid Panel (73050)Indication: Hypercholesteremia On: 34-Kau-21178:35 Request LIPID PANEL (50094)Indication: Hypercholesteremia On: 03-Bmh-283615:51 Request UPEP (75719)Indication: Proteinuria On: :56 Request SPEP (22042)Indication: Proteinuria On: 21-Mfe-406707:56 Request GONADOTROPIN-LH (57382)Indication: Irregular menstrual cycle On: 16-Tqf-021535:55 Request GONADOTROPIN-FSH (46353)Indication: Irregular menstrual cycle On: 76-Vui-374313:54 Request HEPATIC FUNCTION PANEL (26022)Indication: Hypercholesteremia On: 29-Dwj-506614:49 Request Hemoglobin Glyclated (HGB A1C) (42491)Indication: Proteinuria On: 29-Uuo-575684:13 Request GONADOTROPIN-LH (89561)Indication: Unspecified Diagnosis On: :22 Request GONADOTROPIN-FSH (84937)Indication: Unspecified Diagnosis On: :22 Request HEPATIC FUNCTION PANEL (88170)Indication: Unspecified Diagnosis On: :22 Request TSH (74693)Indication: Hypertension On: 35-Xxl-386801:33 Request URINALYSIS, W/ MICRO (03453)Indication: Hypertension On: :33 Request MICROALBUMIN: CREATININE RATIO (08668) AND (05120)Indication: Hypertension On: Request METABOLIC PANEL, COMPREHENSIVE (44076)Indication: Hypertension On: : Request LIPID PANEL (52898)Indication: Hypertension On: : Request CREATININE, URINE (17605)Indication: Hypertension On: Request CBC WITH MANUAL DIFF (97968)Indication: Hypertension On: : Request TAMIA CULTURE-OTHER (95104)Indication: Cellulitis and abscess of other specified site On: 37-Isp-39931:48 Request Comments: rt inner arm thin prep (76521) (std testing)Indication: Vaginitis and vulvovaginitis On: 06-Zui-419860:17 Request NEISSERIA (55204) (THIN PREP OBTAINED)Indication: Vaginitis and vulvovaginitis On: 41-Zab-292482:17 Request HUMAN PAPILVS, NUCLEIC ACID AMPL PROBE (38143)Indication: Vaginitis and vulvovaginitis On: 74-Kgi-225709:17 Request CHLAMYDIA (21403) (thin prep obtained)Indication: Vaginitis and vulvovaginitis On: 44-Fzm-966106:17 Request URINE TAMIA CULTURE (ABIGAIL COL COUNT) (21461)Indication: Dysuria On: 99-Reu-456220:14 Request LIPID PANEL (34602)Indication: Hypercholesteremia On: 3-Dub-140099:10 Request Comments: to be done in 6 months post life style changes. Thin prep Pap (42215)Indication: Well Female (V72.31) (II) On: 6-Oox-054589:07 Request LIPID PANEL (16300)Indication: Screening for hyperlipidemia On: :32 Request PTT (ACTIVATED PARTIAL THROMBOPLASTIN TIME) (39326)Indication: Irregular menstrual cycle On: :28 Request PT (PROTHROMBIN TIME) (46802)Indication: Irregular menstrual cycle On: :28 Request PROLACTIN (35720)Indication: Irregular menstrual cycle On: :28 Request METABOLIC PANEL, COMPREHENSIVE (71916)Indication: Irregular menstrual cycle On: 61-Lqp-782807:28 Request TSH (37621)Indication: Irregular menstrual cycle On: :28 Request CBC (AUTO) (60314)Indication: Irregular menstrual cycle On: :28 Request Planned Encounters Medical; 4 Month FU - On: 26-May-2018 11:15 [facility] Cher Sampson CNP, CNP, Mary E Planned Procedures DEXA SCAN AXIAL SKELETON (67844)By: On: 21-Oct-2017 Intent Cher Sampson CNP, CNP Cynthia SCREENING DIGITAL TOMOSYNTHESIS OF On: 05-Aug-2017 Intent BREAST ([id number])By: Cher Sampson CNP, CNP, Mary E Aerosol Treatment ([id number])By: Camilla On: 16-Jun-2017 Intent Cher ANNE CNP, Mary E Spirometry ([id number])By: Camilla ANNE, On: 16-Jun-2017 Intent Cher King CNP SCREENING DIGITAL TOMOSYNTHESIS OF On: 30-Jul-2016 Intent BREAST ([id number])By: Wanda Cole DO Aerosol Treatment ([id number])By: Perlitaesa On: 09-Jul-2016 Intent Cher ANNE CNP, Mary E Solu -Medrol Injection, 125 mg On: 09-Jul-2016 Intent ([id number])By: Cher Sampson CNP, CNP, Mary E Aerosol Treatment ([id number])By: Jarrett On: 09-Jul-2016 Intent Florence SMITH MRI OF THORACIC SPINE WITHOUT On: 30-Nov-2015 Intent CONTRAST ([id number])By: Cher Sampson CNP, CNP, Mary E Radiology - Cervical SpineBy: Baljindera On: 16-Nov-2015 Intent Cher ANNE CNP, Mary E PHYSICAL THERAPY EVALUATION On: 16-Nov-2015 Intent ([id number])By: Cher Sampson CNP, CNP, Mary E EMG, DYNAMIC SURFACE, 1-12 MUSCLE On: 16-Nov-2015 Intent ([id number])By: Cher Sampson CNP, CNP, Mary E MAMMOGRAM BREAST BILATERAL On: 06-Jul-2015 Intent SCREENING DIGITAL ([id number])By: Cher Sampson CNP, CNP, Mary E TDAP VACCINE >7 IM ([id number])By: Camilla On: 09-Oct-2014 Intent Cher ANNE CNP, Mary E Comments: boostrixlot [id number] 10.9.15L Dltd, IMPrefilled syringeMegan SARAH JarvisVIS signed Solu -Medrol Injection, 125 mg On: 15-May-2014 Intent ([id number])By: Cher Sampson CNP Comments: lot [id number] mgright gmIMas, SARAH ANNE Cynthia Solu -Medrol Injection, 125 mg On: 04-Feb-2013 Intent ([id number])By: Cher Sampson CNP Comments: Lot: [id number]: 07/2015Amt: 125mgRoute: IMSite: RUOQ GlutealGiven by: SARAH Montoya CNP, Mary E Radiology - ChestBy: Camilla ANNE, On: 04-Feb-2013 Intent Cher King CNP Comments: call wet read to Edwin Sampson at [facility] Internal Medicine Aerosol Treatment ([id number])By: Camilla On: 04-Feb-2013 Intent Cher ANNE CNP, Mary E Eprescribed prescriptions On: 04-Feb-2013 Intent ([id number])By: Cher Sampson CNP, CNP, Mary E Aerosol Treatment ([id number])By: Camilla On: 10-Jan-2013 Intent DAYANA CynthiaCher Francisco CNP Eprescribed prescriptions On: 10-Jan-2013 Intent ([id number])By: Tisha Salcedo BIOPSY OF SKIN LESION, SINGLE On: 30-Jun-2012 Intent ([id number])By: Cher Sampson CNP Comments: area cleaned with betadine, small incision made, lipoma extracted in pieces, no bleeding, bandage applied Cher ANNE DRAIN SKIN ABSCESS, SIMPLE/SINGLE On: 30-Jun-2012 Intent ([id number])By: Cher Sampson CNP, CNP, Mary E Eprescribed prescriptions On: 28-Jun-2012 Intent (G8553)By: Maggie Jarvis LPN Spirometry ([id number])By: Camilla ANNE, On: 22-Dec-2011 Intent Cher King CNP Eprescribed prescriptions On: 22-Dec-2011 Intent ([id number])By: Cher Sampson CNP, CNP, Mary E Aerosol Treatment ([id number])By: Camilla On: 10-Nov-2011 Intent Cher ANNE CNP, Mary E ELECTROCARDIOGRAM, COMPLETE (ECG) On: 15-Jan-2011 Intent ([id number])By: Cher Sampson CNP Comments: sinus rhythm borderline T abnormalities Cher ANNE Bio Z ([id number])By: Cher Sampson CNP On: 15-Jan-2011 Intent Cher Sampson CNP Comments: elevated systemic Vascular Resistance Index HIGH COMP EYE EXAMINATION, ESTAB PATIENT On: 18-Dec-2010 Intent ([id number])By: Cher Sampson CNP, CNP, Mary E PHYSICAL THERAPY EVALUATION On: 12-Oct-2009 Intent ([id number])By: Cher Sampson CNP, CNP, Mary E Toradol Injection, 30 mg On: 12-Oct-2009 Intent ([id number])By: Cher Sampson CNP Comments: Lot #: [id number] date: mount given: 30 mg/mlRoute: IMSite given: [...] Kely IRBY Comments: give total 1 gramLot #[id number]-left anticubitalDose1 gmgiven by:CDHIV Therapy eqqrdubyl20S, 1 inchSite:left anticubital Tolerated: wellno redness or swelling, no s/s infiltration THER/PROPH/DIAG INJ, SC/IM On: 16-Aug-2009 Intent ([id number])By: Camilla ANNECher PerlitaCher block CNP Vancoymcin 500mg/premixedBy: Ciesa On: 16-Aug-2009 Intent Cher ANNE CNP, Mary E Comments: 1 gramDay #3 THER/PROPH/DIAG INJ, SC/IM On: 15-Aug-2009 Intent ([id number])By: Camilla ANNECher CNP, Mary E Vancoymcin 500mg/premixedBy: Ciesa On: 15-Aug-2009 Intent Cher ANNE CNP, Mary E Comments: Lot #[id number]-right anticubital given by:ANGELITO Vancoymcin 500mg/premixedBy: Ciesa On: 15-Aug-2009 Intent Cher ANNE PerlitaCher block CNP Comments: IV Therapy reused site from 08/14/09 22G, 1 inchSite: right anticubitalTolerated: wellno redness or swelling, no s/s infiltration DRAIN SKIN ABSCESS, SIMPLE/SINGLE On: 14-Aug-2009 Intent ([id number])By: Camilla ANNECher PerlitaCher block CNP Vancoymcin 500mg/premixedBy: Ciesa On: 14-Aug-2009 Intent Cher ANNE PerlitaCher block CNP THER/PROPH/DIAG INJ, SC/IM On: 13-Aug-2009 Intent ([id number])By: Camilla ANNE CynthiaSixto Sampson CNP Cher Henson Rocephon Injection, 1 Gm On: 13-Aug-2009 Intent ([id number])By: Camilla ANNE CynthiaSixto Sampson CNP Cynthia CT - AbdomenBy: Cher Sampson CNP On: 30-Jan-2009 Intent Cher Sampson CNP Radiology - Abdomen SeriesBy: Camilla On: 16-Jan-2009 Intent DAYANA CynthiaSixto Sampson CNPCher Toradol Injection, 30 mg On: 09-Feb-2008 Intent ([id number])By: Cher Sampson CNP Comments: Amt: 30mgLot: [id number]: 12/2008Route: IMSite: right deltoid (per pt request)Tolerated: wellGiven By: SARAH Farrell CNP, Mary E Toradol Injection, 30 mg On: 22-Oct-2006 Intent ([id number])By: Wanda Cole DO Comments: Lot #:[id number] date: given:30mg/mlRoute: IMSite given:left deltoidGiven by: nidia smith MAMMOGRAM, SCREENING, BOTH BREASTS On: 04-Mar-2006 Intent ([id number])By: TOI HOPKINS CNP Ultrasound - PelvisBy: SANDEEP ANNE, On: 04-Mar-2006 Intent TOI Planned Medications INJECTION, METHYLPREDNISOLONE SODIUM SUCCINATE, UP TO 125 MG Ordered: 04-Feb-2013 Pending Cher Sampson CNP, CNP, Mary E INJECTION, METHYLPREDNISOLONE SODIUM SUCCINATE, UP TO 125 MG Ordered: 15-May-2014 Pending Cher Smapson CNP, CNP, Cher Henson INJECTION, METHYLPREDNISOLONE SODIUM SUCCINATE, UP TO 125 MG Ordered: 09-Jul-2016 Pending Cher Sampson CNP, CNP, Cynthia Instructions Name Dates Details Nonsmoker : How [...] : Patient Instructions Indication: Hypercholesteremia Vaccine for ngwrtnmtxu-firlgbv-zbvspimqk with poliomyelitis : How to access health information online Indication: Vaccine for tlxhglxdig-qpxoxkq-yevsnyain with poliomyelitis Vaccine for akxdhglhhn-bybuylw-rgpnbdozu with poliomyelitis : How to access health information online - Detail Indication: Vaccine for trqduvdoou-boohbov-uefexqeau with poliomyelitis Vaccine for bftxpbdwpw-eeiqoao-epxdsybio with poliomyelitis : Patient Instructions Indication: Vaccine for kelmwlfnsk-zmwzwtr-ejbxmnkfw with poliomyelitis Hypercholesteremia : Patient Instructions Indication: Hypercholesteremia Wheezing : Patient Instructions Indication: Wheezing Cough : Patient Instructions Indication: Cough Lipoma of lower extremity : Patient Instructions Indication: Lipoma of lower extremity Sebaceous cyst : Patient Instructions Indication: Sebaceous cyst Hypercholesteremia : Patient Instructions Indication: Hypercholesteremia Encounters Annotation/Addendum On: 24-Feb-2018 16:13 Encounter Diagnosis: Back pain End: 24-Feb-2018 16:27 [facility] Annotation/Addendum On: 03-Feb-2018 10:40 Encounter Diagnosis: Pain management End: 03-Feb-2018 11:16 [facility] Office Visit On: 25-Jan-2018 11:10 Encounter Reason: [...] runny nose. Note for Cough : Since Thurs, Coughin to point of vomit End: 10-Jan-2013 [...] was stung last w End: 22-Oct-2006 16:16 [place] by a bee.). The course has been [...] Gerd ([phone]) [facility]Von[facility] Gilbert; a guarantor
--- OUTSIDE RECORDS SUMMARY | 2018-05-25 02:27 | XMS RPT_ITS | Continuity of Care Document ---
:1965 Author Organization [facility] Address [address] [facility] [address] [place] [address] Phone Care Team Providers Name Role Phone Cher Sampson CNP Unavailable Wesley JOYA, Juan José Ayala Unavailable Lamonte Kamara Unavailable Jany Sood Unavailable Dr. 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, V06.3) Status: Active Well [...] Quantity: 1 {Inhaler} Refills: 0 Ordered:19-Aug-2017 Camilla ANNE, Cher Edge CNP Start : 19-Aug-2017 Active BACTRIM DS, 800-160MG (Oral Tablet) 1 (one) Tablet bid for 7 days Quantity: 14 {Tablet} Refills: 0 Ordered:20-Aug-2009 Camilla ANNE, Cher Edge CNP Start : 20-Aug-2009 End [...] days Quantity: 14 {Capsule} Refills: 0 Ordered:30-Jun-2012 Camilla ANNE, Cher Wallace [facility], Cynthia Start : 30-Jun-2012 End : 07-Jul-2012 Inactive LEVAQUIN, 500MG (Oral Tablet) 1 (one) Tablet daily for 7 days Quantity: 7 {Tablet} Refills: 0 Ordered:15-May-2014 Camilla ANNE, [facility] Start : 15-May-2014 End : 22-May-2014 [...] days Quantity: 180 {Tablet} Refills: 3 Ordered:19-Oct-2015 Slarb Florence SMITH Start : 24-Apr-2015 End : 19-Oct-2015 Discontinued [...] Start : 12-Oct-2009 End : 12-Oct-2009 Discontinued Tesmo Stewart 100 MG Oral Capsule 1 Capsule tid [...] evaluate with pelvic ultrasound. Will refer to PRODUCTION SUPPORT SUPERVISOR if persists. Status: Inactive as of 17-Jul-2008 [...] Density Study Result: Comments: See Note; NOTES: [facility] Imaging Services [address] [place] [address] Dexa Bone Density Study MR#: [id number] Acct: [id number] Name: VONNIE GILBERT Rep #: : 1965 F 51 From: Pola García MD PCP: Cher Sampson NP Status: REG CLI Study: Dexa Bone Density Study Date of Exam: 10/29/17 Exam# [id number] Ordering Dr: Cher Sampson STUDY: DUAL ENERGY [...] Pola García MD at 15:46 EDT Tel [phone], Service support , CC: Cher Sampson NP Drum Saw Operator: Signed 20-Aug-2017 SCREENING MAMM (CAD), BILAT Result: Comments: See Note; NOTES: [facility] Imaging Services [address] [place] [address] SCREENING MAMM (CAD), BILAT MR#: [id number] Acct: [id number] Name: VONNIE GILBERT Rep # : [id number] : 1965 F 51 From: Pola García MD PCP: Cher Sampson NP Status: REG CLI Study: SCREENING MAMM (CAD), BILAT Date of Exam: 08/20/17 Exam# [id number] Ordering Dr: Cher Sampson LINDA MOGRAPHY - BILATERAL SCREENING REASON FOR EXAM: [...] delay biopsy of a clinically suspicious abnormality. [id number] Electronically Signed: Pola García MD at 12:57 EDT Tel [phone], Service support , CC: Cher Sampson NP Drum Saw Operator: Signed 20-Aug-2017 Downtime Report Result: Comments: See Note; NOTES: [facility] Medical Records Department [address] [place] [address] Downtime Report MR#: [id number] Acct: [id number] Name: VONNIE GILBERT Rep #: [id number] : 1965 51 From: Jesse Carrasco PCP: Cher Sampson NP Status: REG CLI This patient was seen during an EMR downtime August 03, 2017 - August 10, 2017. This patient may have a combination of paper and electronic documentation or all paper documentation. All documentation is viewable within the e-chart portion of [employer] for each patient visit. 19-Aug-2017 Downtime Report Result: Comments: See Note; NOTES: [facility] Medical Records Department [address] [place] [address] Downtime Report MR#: [id number] Acct: [id number] Name: VONNIE GILBERT Rep #: [id number] : 1965 51 From: Jesse Carrasco MD PCP: Cher Sampson NP Status: DEP ER This patient was seen during an EMR downtime August 03, 2017 - August 10, 2017. This patient may have a combination o f paper and electronic documentation or all paper documentation. All documentation is viewable within the e-chart portion of [employer] for each patient visit. 09-Apr-2017 Urgent Care Visit Report Result: Comments: See Note; NOTES: [facility] [address] [place] [address] 6 [place] [address] OFFICE VISIT Date of Service: 04/09/17 MR#: [id number] Acct: [id number] Name: VONNIE IGLBERT Rep #: [id number] : 1965 Provider: Donnie SOTOMAYOR Age/Sex: 51/F Location: [facility] Status: Signed Intake Vital Signs04/09/17 Height 5 ft 9 in 04/09/17 Weight: 241 lb 04/09/17 Body Mass Index (B MS) 35.6 Intake Visit Reasons: ILL Rn Clinical Documentation Specialist Required: No Is patient in pain?: No [...] Therapy Evaluation Result: Comments: See Note; NOTES: [facility] [address] 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. She was referred to the [facility] be Dr Cher Sampson with the diagnosis of henatal cervical disc. She reports to having neck and shoulder pain. She reports that the pain is rather constant but the pain increases with working extra hours. She reports that massage helps her greatly. OBJECTIVE: Upon observation oVnnie has poor posture with her head forward [...] Sampson NP LYUBOV Signed For [facility] care only, by signing this I certify the plan of care. Physicians Signature Date 16-Mar-2017 Urgent Care Visit Report Result: Comments: See Note; NOTES: [facility] [address] [place] [address] OFFICE VISIT Date of Service: 03/16/17 MR#: [id number] Acct: [id number] Name: VONNIE GILBERT Rep #: [id number] : 1965 Provider: Kris SOTOMAYOR Age/Sex: 51/F Location: [facility] Status: Signed Intake Vital Signs03/16/17 Height 5 [...] fatigue Exam Const General: cooperative, healthy appearing [facility] Head: normocephalic, atraumatic Ears: hearing grossly [...] the above. This note was generated with [employer] ([employer])ation software. It may contain incorrect words, spelling, and punctuation that were not noted in checking the note before signing. Orders Orders: Coding Level of Care Code Off vis,new,level 3 Diagnoses RUQ abdominal pain R10.11 03/16/17 1210 <Electronically signed by Kris SOTOMAYOR> Date Kris SOTOMAYOR Cosigner Signature: Date (if applicable) CC: 27-Feb-2017 Discharge Summary Result: Comments: See Note; NOTES: [facility] Medical Records Department [address] [place] [address] Discharge Summary 02/27/17 1309 MR#: [id number] Acct: [id number] Name: VONNIE GILBERT Rep #: [id number] : 1965 51 From: Yvrose Pickard PCP: [...] discharge this patient from our care at [facility]. Sincerely, Yvrose Pickard LMT 02/27/17 1315 <Electronically signed by Yvrose Pickard > Date Yvrose Pickard Cosigner Signature (if applicable): Date ____ CC: Cher Sampson PHYSICAL SCIENTIST; Yvrose Pickard Signed 04-Oct-2016 Emergency Department Summary Result: Comments: See Note; NOTES: [facility] Medical Records Department [address] [address] Emergency Department Summary 10/04/16 2158 MR#: [id number] Acct: [id number] Name: VONNIE GILBERT Rep #: [id number] : 1965 50 From: Jaylen Khan MD [...] your Primary Care Provider. Call [facility] ([phone]) or report to the closest Emergen cy Room. Call 911 if necessary. 10/04/16 6412 <Electronically signed by Jaylen Khan MD> Date Jaylen Serratoigner Signatur e (If Indicated): Date CC: Cher Sampson 15-Aug-2016 SCREENING MAMM (CAD), BILAT Result: Comments: See Note; NOTES: [facility] Imaging Services [address] [place] [address] Verdana 4d SCREENING MAMM (CAD), BILAT MR#: [id number] Acct: [id number] Name: Gwen GILBERT Rep #: [id number] : 1965 F 50 From: Pola García MD PCP: Cher Sampson Status: REG CLI Study: SCREENING MAMM (CAD), BILAT Date of Exam: 08/15/16 Exam# [id number] Ordering Dr: Jonathan Sampson ry MAMMOGRAPHY - [...] delay biopsy of a clinically suspicious abnormality. [id number] Electronically Signed: Pola García MD at 10:21 EDT Tel [phone], Serv ice support , CC: Cher Sampson Drum Saw Operator: Signed 04-Mar-2016 PT Discharge Summary Result: Comments: See Note; NOTES: [facility] [facility]. [address] [place] [address] Fax REHABILITATION SERVICES DISCHAR GE SUMMARY MR#: [id number] Acct: [id number] Name: VONNIE GILBERT Rep #: [id number] : 1965 50 From: Susu [place]in Referring [...] the patient from our care at the [facility] facility. Susu [place]in LMT T: REG JOB: [id number] &#60 ;Electronically signed by Susu [place]in > 03/04/16 0643 CC: Cher Sampson Signed 28-Feb-2016 PT Discharge Summary Result: Comments: See Note; NOTES: [facility] [address] [place], [place] [address] Fax REHABILITATION SERVICES DISCHAR GE SUMMARY MR#: [id number] Acct: [id number] Name: VONNIE GILBERT Rep #: [id number] : 1965 50 From: Susu [place]in Referring [...] the patient from our care at the [facility] facility. Susu [place]in LMT T: REG JOB: [id number] &#60 ;Electronically signed by Susu [place] > 02/28/16 1658 CC: Cher Sampson Signed 29-Jan-2016 PT D/C of Non Returning Pt (1) Result: Comments: See Note; NOTES: [facility] [address] [place], [place] [address] Fax REHABILITATION SERVICES DISCHAR GE SUMMARY MR#: [id number] Acct: [id number] Name: VONNIE GILBERT Rep #: [id number] : 1965 50 From: iLnda Gambino PT. T, OCS Referring Dr.: Cher Sampson Status: REG RCR Insurance: [facility] [employer] - Discharge Summary (1) - Patient [...] lly signed by Noam Martinez PT, Cert. T, OCS> 01/29/16 0926 CC: Cher Sampson BRIGITTE Signed 07-Dec-2015 Spine Cervical (Routine) Result: Comments: See Note; NOTES: [facility] Imaging Services [address] [place] [address] Verdana 4d Spine Cervical (Routine) MR#: [id number] Acct: [id number] Name: NOHEMI GILBERT R Rep #: [id number] : 1965 F 49 From: Kendal Cox DO PCP: Cher Sampson Status: REG CLI Study: Spine Cervical (Routine) Date of Exam: 12/07/15 Exam# [id number] Ordering Dr: Cher Sampson STUD Y: MRI [...] canal or foraminal compromise . Electronically Signed: Kendla Cox DO at 1:40 EDT Tel , Service support [phone], CC: Cher Sampson Drum Saw Operator: Signed 19-Nov-2015 Inital Evaluation (1) - PT Result: Comments: See Note; NOTES: [facility] [address] [place] [address]. [address] [place] [address] Fax REHABILITATION SERVICES INITIA L EVALUATION MR#: [id number] Acct: [id number] Name: VONNIE GILBERT Rep #: [id number] : 1965 49 From: Noam Osman Referring DrAshutosh: Cher Sampson Status: REG RCR Insurance: [facility] [employer] [facility] Patient's Visit Information VONNIE GILBERT is a [...] to be FAXED BACK to us at [phone] for Medicare purposes. Please let me know if there are questions or concerns regarding this plan of care. Physician Si gnature: Date: <Electronically signed by Noam Osman > 11/19/15 1129 CC: Cher Sampson KARLEY Sign ed For Medicare only, by signing this I certify the plan of care. Physicians Signature Date 16-Nov-2015 Cerv Spine 4 or 5 Views Result: Comments: See Note; NOTES: [facility] Imaging Services [address] [place] [address] Verdayanely 4d Cerv Spine 4 or 5 Views MR#: [id number] Acct: [id number] Name: VONNIE GILBERT Rep #: [id number] : 1965 F 49 From: Pola García MD PCP: Cher Sampson Status: REG CLI Study: Cerv Spine 4 or 5 Views Date of Exam: 11/16/15 Exam# [id number] Ordering Dr: Cher Sampson: X-RAY - CERVICAL [...] Pola García MD at 14:54 EDT Tel [phone], Service support [phone], CC: Cher Sampson Drum Saw Operator: Signed 01-Aug-2015 Inital Evaluation - PT Result: Comments: See Note; NOTES: [facility] [address] [place] [address] [address] [place] [address] Fax REHABILITATION RVICES INITIAL EVALUATION MR#: [id number] Acct: [id number] Name: VONNIE GILBERT Rep #: [id number] : 1965 49 From: Susu Garcia Referring : Cher Sampson Status: REG RCR Insura nce: [facility] SERVICES Eval Date: DATE OF SERVICE: 03/30/2015 REFERRING PHYSICIAN: Dr. 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 Sampson [...] an as needed basis throughout the year 2015 for a total of 10 one-hour sessions. Susu Garcia LMT T: REG JOB: [id number] <Electronically signed by Susu Garcia > 08/01/15 1909 CC: Signed For Medicare only, by signing this I certify the plan of care. Physicians Signature Date 20-Jul-2015 Bilat Scrn Digital AND CAD Result: Comments: See Note; NOTES: [facility] Imaging Services [address] [place] [address] Perry 4d Bilat Scrn Digital AND CAD MR#: [id number] Acct: [id number] Name: VONNIE GILBERT Rep #: [id number] : 1965 F 49 From: Pola García MD PCP: Cher Sampson Status: REG CLI Study: Jeni Kian Digital AND CAD Date of Exam: 07/20/15 Exam# [id number] Orderin g Dr: Cher Sampson MAMMOGRAPHY - BILATERAL [...] delay biopsy of a clinically suspicious abnormality. [id number] Electronic ally Signed: Pola García MD at 12:25 EDT Tel [phone], Service support [phone], CC: Cher Sampson Drum Saw Operator: Signed 05-Mar-2015 PT Discharge Summary Result: Comments: See Note; NOTES: [facility] [address] [place] [address] Fax REHABILITATION SE RVICES DISCHARGE SUMMARY MR#: [id number] Acct: [id number] Name: VONNIE GILBERT R Rep #: [id number] : 1965 49 From: Susu Garcia Referring DrAshutosh: Cher Sampson Status: DIS RCR Eval Da [...] [facility]. Susu Garcia LMT T: [facility] JOB: [id number] <Electronically signed by Susu Garcia & #62; 03/05/15 1201 CC: Cher Sampson Signed 24-Apr-2014 Inital Evaluation - PT Result: Comments: See Note; NOTES: [facility] [address] [place], [place] [address] Fax REHABILITATION SERVICES INITIAL EVALUATION MR#: [id number] Acct: [id number] Name: VONNIE GILBERT R Rep #: [id number] : 1965 48 From: Susu Garcia Referring : Cher Sampson Status: DIS RCR Insurance: [facility] [employer] SERVICES Eval Date: DATE OF SERVICE: 03/17/2014 REFERRING PHYSICIAN: Dr. Cher Sampson. 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 She was referred to the [facility] facility for massotherapy evaluation by Dr. Sampson [...] sessions. Susu Garcia LMT T: REG JOB: [id number] <Electronically signed by Susu Garcia > 04/24/14 1107 CC: Signed For Medicare only, by sign ing this I certify the plan of care. Physicians Signature Date 10-Mar-2014 PT Discharge Summary Result: Comments: See Note; NOTES: [facility] [address] [place] [address]. [address] [place] [address] Fax REHABILITATION SERVICES DISCHARGE SUMMARY MR#: [id number] Acct: [id number] Name: VONNIE GILBERT Rep #: [id number] : 1965 48 From: Susu Garcia Referring [...] Hospital. Susu Garcia LMT T: NTS JOB: [id number] <Electronically signed by Susu Garcia > 03/10/14 1104 CC: Signed 16-Jun-2013 Inital Evaluation - PT Result: Comments: See Note; NOTES: [facility] [facility] [place] [address] Fax REHABILITATION SERVICES INITIAL EVALUATION MR#: [id number] Acct: [id number] Name: VONNIE GILBERT Rep #: [id number] : 1965 47 From: Susu Garcia Referring : Cher Sampson Status: DIS RCR Insurance: [facility] Eval Date: DATE OF SERVICE: 05/25/2013 REFERRING PHYSICIAN: Dr. Cher Sampson. 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 [...] Susu Garcia LMT T : REG JOB: [id number] <Electronically signed by Susu Garcia > 06/16/13 2066 CC: Signed For Medicare only, by signing this I certify the plan of c are. Physicians Signature Date 19-Feb-2013 PT Discharge Summary Result: Comments: See Note; NOTES: [facility] [address] [place] [address] Fax REHABILITATION SERVICES DISCHARGE SUMMARY MR#: [id number] Acct: [id number] Name: VONNIE GILBERT Rep #: [id number] : 1965 47 From: Susu Garcia Referring [...] the patient from our care at the [facility]. Susu Garcia LMT T: REG JOB: [id number] &amp ;#60;Electronically signed by Susu Garcia > 02/19/13 1043 CC: * Signed 04-Feb-2013 Chest PA and Lateral Result: Comments: See Note; NOTES: [facility] Imaging Services [address] [place] [address] Radiology Report MR#: [id number] Acct: [id number] Name: VONNIE GILBERT Cruz Rep #: [id number] : 1965 F 47 From: Pola García MD PCP: Status: REG CLI Study: Chest PA and Lateral Date of Exam: 02/04/13 Exam# [id number] Ordering Dr: Cher Sampson STUDY: X-RAY CHEST [...] M.D. 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 Status: Active Non Smoker/No Tobacco Use Status: [...] smoker Vital Signs Date Test Result Details 27-Kcw-248549:18 Temperature 96.8 f Comments: Method: Temporal Pulse [...] kg/m2 Body Surface Area Calculated 2.23 m2 77-Zsd-450854:12 Weight 238.375 lb Height 69 in Body Mass Index Calculated 35.2 kg/m2 Body Surface Area Calculated 2.23 m2 94-Vrc-60924:11 Temperature 97 f Comments: Method: Temporal Pulse [...] kg/m2 Body Surface Area Calculated 2.19 m2 :59 Pulse 90 /min Comments: Pattern: Regular Respiration [...] 0.00 cm Results Date Description Value Details 34-Nhp-655785:25 Lipid Profile Comments: [facility] [address] [place], [place], [address] VLDL 62 mg/dL (Abnormal) Range: 5-40 LDL [...] 200-240 mg/dL Borderline >240 mg/dL High Risk 50-Udp-196046:25 Uric Acid Comments: [facility] [address] [place], [place], [address] URIC 5.8 mg/dL (Normal) Range: 2.6-6.0 Comments: The drugs N-Acetylcysteine and Metamizole may falselydepress this assay. 1-Dvz-578682:05 CBC, Employee Comments: [facility] [address] [place], [place], [address] Absolute Lymph 2.40 {X10_3/ul} (Normal) Range: 0.83-4.51 [...] 4.2-5.4 WBC 7.4 K/mm3 (Normal) Range: 4.4-11.0 5-Mrl-035590:05 Employee Profile Comments: [facility] [address] [place], [place], [address] LDH 167 U/L (Normal) Range: 84-246 VLDL [...] Comments: Please note revised GLUCOSE reference range yqphdmzll65/02/2018. 9-Cby-881433:05 Nicotine Urine Drug Screen Comments: [facility] [address] [place], [address] COT DRG SCREEN Negative (Normal) Comments: Cotinine [...] result, particularly whenpreliminary positive results are used. 0-Oic-534223:05 Urinalysis, Employee Comments: [facility] [address] [facility] [place], [address] LEUK ESTERASE Negative /ul (Normal) OCCULT BLOOD-UR Negative /ul (Normal) NITRITE UR Negative (Normal) UROBILI Normal mg/dL (Normal) PROT DIPSTX Negative mg/dL (Normal) pH UR 5.0 (Normal) Range: 5.0 - 8.0 SP.GR. DIPSTX 1.020 (Normal) Range: 1.002-1.030 KETONE UR Negative mg/dL (Normal) BILIRUBIN URINE Negative mg/dL (Normal) GLUCOSE, UR Normal mg/dL (Normal) CLARITY Clear (Normal) COLOR Yellow (Normal) 39-Tvw-739172:27 CBC W/Diff, Automated Comments: [facility] [address] [place], [place], [address] Absolute Lymph 2.41 {X10_3/ul} (Normal) Range: 0.83-4.51 [...] 4.2-5.4 WBC 9.1 K/mm3 (Normal) Range: 4.4-11.0 15-Ska-374809:27 Comprehensive Metabolic Profil Comments: [facility] [address] [place], [place], [address] GAP 9 (Normal) Range: 5-15 CO2 24.0 [...] 7-18 GLU 84 mg/dL (Normal) Range: 70-110 7-Ltc-977515:55 CBC, Employee Comments: [facility] [address] [place], [address] Absolute Lymph 2.01 {X10_3/ul} (Normal) Range: 0.83-4.51 [...] 4.2-5.4 WBC 7.2 K/mm3 (Normal) Range: 4.4-11.0 8-Les-522892:55 Employee Profile Comments: [facility] [address] [place], [place], [address] LDH 178 U/L (Normal) Range: 84-246 VLDL [...] 7-18 GLU 81 mg/dL (Normal) Range: 70-110 1-Yxy-211437:55 Nicotine Urine Drug Screen Comments: [facility] [address] [place], [place], [address] COT DRG SCREEN Negative (Normal) Comments: Cotinine [...] result, particularly whenpreliminary positive results are used. 4-Qud-796508:55 Urinalysis, Employee Comments: [facility] [address] [place], [place], [address] LEUK ESTERASE Negative /ul (Normal) OCCULT BLOOD-UR [...] (Normal) 03-Jul-20169:40 Culture, R/O Strep A Comments: [facility] [address] [facility] [address] [place], [place], [address] CUSTREPA See Note (Normal) Comments: NAI CultureNo Group A Beta Streptococcus isolated. * This cultures intended use is to screen for Beta Streptococcus A only. All other pathogens and potential pathogens will not be screened for or re ported. If a complete workup of all potential pathogens is indicated an order for a routine throat culture is required. :56 CBC, Employee Comments: [address] [place], [address] Absolute Lymph 2.21 {X10_3/ul} (Normal) Range: 0.83-4.51 [...] (Normal) Range: 4.4-11.0 :56 Employee Profile Comments: [facility] [address] [place], [place], [address] LDH 190 U/L (Normal) Range: 84-246 VLDL [...] 70-110 :56 Nicotine Urine Drug Screen Comments: [facility] [address] [place], [place], [address] COT DRG SCREEN Negative (Normal) Comments: Cotinine [...] Employee Comments: How was Urine Obtained? CLEAN [facility] [address] [place], [place], [address] LEUK ESTERASE 25 /ul (Abnormal) OCCULT BLOOD-UR Negative /ul (Normal) NITRITE UR Negative (Normal) UROBILI Normal mg/dL (Normal) PROT DIPSTX 15 mg/dL (Abnormal) pH UR 5.0 (Normal) Range: 5.0 - 8.0 SP.GR. DIPSTX 1.020 (Normal) Range: 1.002-1.030 KETONE UR Negative mg/dL (Normal) BILIRUBIN URINE Negative mg/dL (Normal) GLUCOSE, UR Normal mg/dL (Normal) CLARITY Clear (Normal) COLOR Yellow (Normal) 1-Moz-083059:53 Lipid Profile Comments: [facility] [address] [facility] [place], [address] VLDL 40 mg/dL (Normal) Range: [...] 200-240 mg/dL Borderline >240 mg/dL High Risk 51-Ypy-956750:04 CBC, Employee Comments: Test performed at:[facility] [address] [place] [address] Absolute Lymph 2.04 {X10_3/ul} (Normal) Range: 0.83-4.51 [...] 4.2-5.4 WBC 5.4 K/mm3 (Normal) Range: 4.4-11.0 82-Fql-899763:04 Employee Profile Comments: Test performed at:[facility] [address] [place] [address] LDH 190 U/L (Normal) Range: 84-246 VLDL [...] Comments: Please note revised CREATININE reference range schuxosdk09/22/2015. BUN 17 mg/dL (Normal) Range: 7-18 GLU 89 mg/dL (Normal) Range: 70-110 18-Fpk-559835:04 Urinalysis, Employee Comments: Test performed at:[facility] [address] [place] [address] LEUK ESTERASE Negative /ul (Normal) OCCULT BLOOD-UR Negative /ul (Normal) NITRITE UR Negative (Normal) UROBILI Normal mg/dL (Normal) PROT DIPSTX Negative mg/dL (Normal) pH UR 6.0 (Normal) Range: 5.0 - 8.0 SP.GR. DIPSTX 1.015 (Normal) Range: 1.002-1.030 KETONE UR Negative mg/dL (Normal) BILIRUBIN URINE Negative mg/dL (Normal) GLUCOSE, UR Normal mg/dL (Normal) CLARITY Sl. Cloudy (Normal) COLOR Yellow (Normal) 44-Zya-318283:45 CBCEM ALC 1.82 {X10_3/ul} (Normal) Range: 0.83-4.51 [...] 4.2-5.4 WBC 5.9 K/mm3 (Normal) Range: 4.4-11.0 90-Xlu-670277:45 EMP Comments: [facility] SVCATTN MICHAEL BUSBY....NO NOT MAIL LDH [...] CHOL 201 mg/dL (Abnormal) Comments: <200 mg/dL Faanuzzte644-479 mg/dL Borderline>240 mg/dL High Risk BID 0.14 [...] 7-18 GLU 103 mg/dL (Normal) Range: 70-110 72-Odv-661619:45 UAEM DAMIÁN Negative /ul (Normal) UOB Negative /ul (Normal) SYLVIA Negative (Normal) UROBU Normal mg/dL (Normal) uPROTU Negative mg/dL (Normal) ELISE 5.0 (Normal) Range: 5.0 - 8.0 SGU 1.020 (Normal) Range: 1.002-1.030 KETU Negative mg/dL (Normal) BILIU Negative mg/dL (Normal) GLUR Normal mg/dL (Normal) UCLAR Sl. Cloudy (Normal) UCOL Yellow (Normal) 1-Yvx-276005:12 DDIMQ 0.30 {FEUug/mL} (Normal) Range: 0.22-0.48 Comments: NORMAL D-Dimer level indicates no DVT or PE. 3-Ocl-165626:23 Pathology Report Comments: PERFORMED BY: [employer] [facility] [place] Gthq64629 [facility] [id number] Information: [id number] See MATER Comments: Material submitted: .EXCISION RIGHT [...] as received in cassette A./LMSLMS/LMSPathologist provided ICD-9:214.9CPT .228551 48-Ztx-198841:23 LIPID VLDL 30 mg/dL (Normal) Range: 5-40 [...] Very High > or = 500 mg/dL 58-Pqh-484924:23 LIVER BID 0.08 mg/dL (Normal) Range: 0.00-0.30 BIT 0.50 mg/dL (Normal) Range: 0.00-1.00 ALK 86 U/L (Normal) Range: 50-136 ALT 30 U/L (Normal) Range: 12-78 ALB 4.1 g/dL (Normal) Range: 3.4-5.0 AST 17 U/L (Normal) Range: 15-37 TPROT 7.2 g/dL (Normal) Range: 6.4-8.2 86-Wrl-299765:06 LIPID VLDL 41 mg/dL (Abnormal) Range: 5-40 [...] 200-240 mg/dL Borderline >240 mg/dL High Risk 08-Asg-148099:07 HGB A1C 5.9 % (Normal) Range: 4.2-6.3 :22 FSH 4309 10.4 m[iU]/mL (Normal) Comments: Follicular phase 3.5 - 12.5 Ovulation phase 4.7 - 21.5 Luteal phase 1.7 - 7.7 Postmenopausal 25.8 - 134.8Performed at: [facility] [id number] Director: Mary Mccallum MD, Phone: [phone] :22 LIVER Comments: appt 02/11/11 D BILI [...] - 11.4 Postmenopausal 7.7 - 58.5 :22 PROT.[id number] M-SPIKE,U SeeNote % (Normal) Comments: Result: Not Observed NOTE Comment (Normal) Comments: Protein electrophoresis scan will follow via computer,mail, or exterior designer delivery. GAMMA GLOB,U 11.4 % (Normal) EULGQ-4-WOUO,U 9.0 % (Normal) BETA GLOB,U 24.2 % (Normal) LTWHT-7-XXLB,U 1.7 % (Normal) ALBUMIN,UR 53.7 % (Normal) PROTEIN,UR 24.6 mg/dL (Abnormal) Range: 0.0-15.0 :22 SPE [id number] INTERPRETATION Comment (Normal) Comments: The SPE pattern appears essentially unremarkable. Evidenceof monoclonal protein is not apparent.Protein electrophoresis scan will follow via computer,mail, or exterior designer delivery. A/G RATIO 1.3 (Normal) Range: 0.7-2.0 [...] 7-18 GLU 79 mg/dL (Normal) Range: 70-110 85-Fbb-206667:03 COMPLETE UA MUCUS, URINE 0 SEEN {/hpf} [...] NEGATIVE CLARITY CLEAR (Normal) COLOR YELLOW (Normal) 03-Ivp-393520:03 LIPID VLDL 41 mg/dL (Abnormal) Range: 5-40 [...] 200-240 mg/dL Borderline >240 mg/dL High Risk :03 MICROALB:CRE UR MALB:CREAT 41.3 {mg/g_CRE} (Abnormal) MICROALBUMIN,UR 66.0 mg/L (Normal) UR CREAT 159.7 mg/dL (Normal) :03 TSH 1.16 {uIU/mL} (Normal) Range: 0.358-3.74 61-Jvr-699437:57 CERV SPINE,MIN 4 VIEWS Radiology Report See Note (Normal) Comments: Exam Number: [id number] CLINICAL:43-year-old female with neck pain. X-RAY EXAMINATION: [...] of spondylosis. Reported By: ELSA MOODY M.D. 4-Zun-685822:33 MYOCARD PERF STRESS/REST MULT Radiology Report See Note (Normal) Comments: Exam Number: [id number] MYOCARDIAL PERFUSION SCAN 11.3 mCi of Tc99m [...] fraction. Reported By: ANNA MARIE PANTOJA M.D. 55-Ujj-878476:42 CBCD,SMEAR DIFF RED CELL MORPH SeeNote {NORMAL} [...] 4.2-5.4 WBC 6.8 K/mm3 (Normal) Range: 4.4-11.0 60-Noq-036823:42 RENAL CL 103 mmol/L (Normal) Range: 98-107 [...] 2.5-4.9 GLU 102 mg/dL (Normal) Range: 70-110 54-Tnx-180959:26 Aerobic Bacterial Culture Comments: PATIENT NOT FASTINGPERFORMED BY: [facility] Iwnuvu3897 [facility] [id number] Information: SRC: RIGHT ARM Antimicrobial MIHEAD (Normal) [...] oxacillin predictssusceptibility or resistance to (a) other iisy-dsrjwrwjc-kpnkdwvmnhwidgyzd such as cloxacillin and dicloxacillin, (b) co (Normal) mbinationsof a penicillin and a beta-lactamase inhibitor, and(c) anti- staphylococcal cephalosporins. Routine testing of otherpenicillins, beta-lactam/beta-lactamase inhibitor combinations,cephems, and c arbapenems is not advised by the CLSI Standards(U348-L13, 2005). Aerobic Bacterial Final report (Normal) Culture :45 SED RATE ERYTHROCYTE (85259) Comments: PATIENT NOT FASTINGPERFORMED BY: ELLIOT LabCoRut[facility] - [facility] Behavioral HealthCareBfprli7078 [facility] [id number] Sedimentation Rate-Westergren 2 mm/h (Normal) Range: 0-20 :45 CBC with manual diff (23240) Comments: PATIENT NOT FASTINGClinical Information: [id number] PERFORMED BY: ELLIOT LabCoR[facility] - [facility] Behavioral HealthCareLufrae3807 [facility] [id number] Baso (Absolute) 0.0 {x10E3/uL} (Normal) Range: 0.0-0.2 [...] 11.7-15.0 WBC 4.9 {x10E3/uL} (Normal) Range: 4.0-10.5 5-Vqq-033878:45 HEPATIC FUNCTION PANEL Comments: PATIENT NOT FASTINGPERFORMED BY: bContextRutgers - [facility] Behavioral HealthCareObxmqb1457 [facility] [id number] ([id number]) Bilirubin, Direct 0.14 mg/dL (Normal) Range: 0.00-0.40 8-Fum-304461:45 Metabolic Panel, Comprehensive Comments: PATIENT NOT FASTINGPERFORMED BY: LabCoRut[facility] - [facility]al HealthCareRwsqus4371 [facility] [id number] ([id number]) A/G Ratio 2.0 (Normal) Range: 1.1-2.5 Albumin, [...] Sodium, Serum 139 mmol/L (Normal) Range: 135-145 2-Ors-125038:03 Urinalysis, Office (93396) UA - BLOOD Negative (Normal) UA - LEUKOCYTE ESTERASE Negative (Normal) UA - NITRITE Negative (Normal) UA - PH 6.0 (Normal) UA - PROTEIN Negative mg/dL (Normal) URINE UROBILINGN ABIGAIL TIMED Normal mg/dL (Normal) UA - BILIRUBIN Negative (Normal) UA - GLUCOSE Negative (Normal) UA - KETONES Negative mg/dL (Normal) UA - SPECIFIC GRAVITY 1.025 (Normal) 9-Yod-702443:47 ABDOMEN WITH IV CONTRAST Radiology Report See Note (Normal) Comments: Exam Number: [id number] HISTORYRight side abdominal pain. CT ABDOMEN WITH [...] likely represent cysts. Reported By: Minor Boateng 40-Iak-510284:21 ACUTE ABDOMEN, INC CHEST (MT) Radiology Report See Note (Normal) Comments: Exam Number: [id number] CLINICAL:Right upper quadrant pain. X-RAY EXAMINATION: CHEST [...] upper quadrant. Reported By: MICHAELA MARK M.D. :15 CBC with manual diff (08096) Comments: PATIENT NOT FASTINGClinical Information: [id number] PERFORMED BY: [facility]Helen [facility]6370 [facility] [id number] Baso (Absolute) 0.0 {x10E3/uL} (Normal) Range: 0.0-0.2 [...] 11.7-15.0 WBC 6.0 {x10E3/uL} (Normal) Range: 4.0-10.5 75-Lzx-488909:15 Metabolic Panel, Comprehensive Comments: PATIENT NOT FASTINGPERFORMED BY: RelTelHelen [facility] Hospital6370 [facility] [id number] ([id number]) A/G Ratio 1.8 (Normal) Range: 1.1-2.5 Albumin, [...] Sodium, Serum 139 mmol/L (Normal) Range: 135-145 :15 HEPATIC FUNCTION PANEL Comments: PATIENT NOT FASTINGPERFORMED BY: RelTelHel[facility]6370 [facility] [id number] ([id number]) Bilirubin, Direct 0.11 mg/dL (Normal) Range: 0.00-0.40 [...] for patient's is the eGFRmultiplied by 1.212. [facility] Laboratory uses the abbreviated Modification of Diet [...] Disease W/O Kidney Disease>/= 90 Stage One Bqrulf16 - 89 Stage Two Suspect Decreased GFR30 [...] 2.6-6.0 VLDL 14 mg/dL (Normal) Range: 5-40 8-Klz-623801:34 EMP URINALYSIS BILIRUBIN URINE SeeNote (Normal) Comments: [...] 0.2 EU/dl (Normal) Range: 0.2 - 1.0 65-Ixq-358347:52 Pap Lb, Ct-Ng, Comments: Source.............Cervical;EndocervicalNo. of containers..01 CYTYC Thin Prep VialPERFORMED BY: =G [facility] [address] [place] [id number] HPV-hr . . (Normal) Chlamydia, Nuc. Acid Amp Negative (Normal) DIAGNOSIS: SPRCS (Normal) Comments: NEGATIVE FOR INTRAEPITHELIAL LESION AND MALIGNANCY.Satisfactory for evaluation. Endocervical and/or squamous metaplasticcells (endocervical component) are present.616.10 ; Unspecified vagin itis and vul vovaginitisNatalie A Nataliya, Reference Librarian Gonococcus, Nuc. Acid Amp Negative (Normal) Note: PAPSMR (Normal) Comments: The Pap smear is a screening test designed to aid in the detection ofpremalignant and malignant conditions of the uterine cervix. It is not adiagnostic procedure and should not be used as the sole mean s of detectingcervical cancer. Both false-positive and false-negative reports do occur. . 57-Lxb-297554:37 Urinalysis, Office (64373) UA - LEUKOCYTE ESTERASE Negative (Normal) Comments: [...] Range: 0.2 - 1.0 COLOR YELLOW (Normal) 61-Rgk-614387:15 Urinalysis, Office (81821) UA - BILIRUBIN Large (Normal) UA - BLOOD Non Hemolyzed Trace (Normal) UA - GLUCOSE Negative (Normal) UA - KETONES Negative mg/dL (Normal) UA - LEUKOCYTE ESTERASE Trace (Normal) Comments: aw UA - NITRITE Negative (Normal) UA - PH 5.0 (Normal) UA - PROTEIN Negative mg/dL (Normal) UA - SPECIFIC GRAVITY 1.020 (Normal) URINE UROBILINGN ABIGAIL TIMED Normal mg/dL (Normal) 13-Rao-659079:15 CULTURE, URINE URINE CULTURE See Note {CFU/mL} [...] 1.8 - 20.3Performed At: [facility] [place], [place] [id number] :52 PTT 30.5 s (Normal) Range: 24.6-36.6 [...] symptoms worsen Indication: Motion sickness Vaccine for svyeayawah-cxzcapm-vrcdkkbua with poliomyelitis : Eprescribed prescriptions (G8553) Indication: Vaccine for qqlpehwkhw-xkraysh-ylbdsxauj with poliomyelitis Cough : Follow up if [...] : FOLLOW UP IN 2 WEEKS with [facility] Indication: Cervical strain Cervical strain : exercises [...] specified site : FOLLOW UP TOMORROW with [facility] for IV vancomycin Day #3 Indication: Cellulitis and abscess of other specified site Insect bite, nonvenomous of shoulder and upper arm, infected : FOLLOW UP TOMORROW for IV vanco over 1 hr with [facility] Indication: Insect bite, nonvenomous of shoulder and upper arm, infected Cellulitis and abscess of other specified site : I/D Cyst/Abscess Indication: Cellulitis and abscess of other specified site Candidiasis, mouth : FOLLOW UP TOMORROW with [facility] Indication: Candidiasis, mouth Hypercholesteremia : Cholesterol [...] (gastroesophageal reflux disease) Planned Observations LIPID PANEL (37909)Indication: Hypertriglyceridemia On: 37-Zyl-926071:01 Request URIC ACID BLOOD (57386)Indication: Elevated uric acid in blood On: 3-Feh-839040:41 Request Lipid Panel (33009)Indication: Hypertriglyceridemia, sporadic On: 6-Atm-042855:40 Request Comments: fasting Lipid Panel (79265)Indication: Hypercholesteremia On: 06-Gvf-736021:20 Request Comments: to be done in 6 weeks at [facility] (59206)Indication: Cough On: 2-Nau-155050:12 Request Lipid Panel (75118)Indication: Hypercholesteremia On: 81-Uit-226231:08 Request Comments: fasting HEPATIC FUNCTION PANEL (58988)Indication: Hypercholesteremia On: 52-Xvv-479646:02 Request Lipid Panel (85145)Indication: Hypercholesteremia On: 49-Udo-95147:26 Request Hemoglobin Glyclated (HGB A1C) (42425)Indication: Proteinuria On: 66-Cwg-42646:41 Request Lipid Panel (94763)Indication: Hypercholesteremia On: :35 Request LIPID PANEL (71957)Indication: Hypercholesteremia On: 39-Pya-860588:51 Request UPEP (45457)Indication: Proteinuria On: 05-Jqd-927988:56 Request SPEP (70038)Indication: Proteinuria On: 19-Myu-071997:56 Request GONADOTROPIN-LH (85846)Indication: Irregular menstrual cycle On: 60-Vqw-600218:55 Request GONADOTROPIN-FSH (00355)Indication: Irregular menstrual cycle On: 32-Vkk-593541:54 Request HEPATIC FUNCTION PANEL (34495)Indication: Hypercholesteremia On: 19-Tnm-186140:49 Request Hemoglobin Glyclated (HGB A1C) (11369)Indication: Proteinuria On: 52-Mro-389168:13 Request GONADOTROPIN-LH (77916)Indication: Unspecified Diagnosis On: :22 Request GONADOTROPIN-FSH (31724)Indication: Unspecified Diagnosis On: :22 Request HEPATIC FUNCTION PANEL (20364)Indication: Unspecified Diagnosis On: :22 Request TSH (00046)Indication: Hypertension On: :33 Request URINALYSIS, W/ MICRO (07194)Indication: Hypertension On: :33 Request MICROALBUMIN: CREATININE RATIO (06610) AND (26042)Indication: Hypertension On: :33 Request METABOLIC PANEL, COMPREHENSIVE (72803)Indication: Hypertension On: :33 Request LIPID PANEL (54244)Indication: Hypertension On: :33 Request CREATININE, URINE (02733)Indication: Hypertension On: :33 Request CBC WITH MANUAL DIFF (18535)Indication: Hypertension On: :33 Request TAMIA CULTURE-OTHER (36899)Indication: Cellulitis and abscess of other specified site On: 99-Tma-35414:48 Request Comments: rt inner arm thin prep (38126) (std testing)Indication: Vaginitis and vulvovaginitis On: 55-Cei-031784:17 Request NEISSERIA (62639) (THIN PREP OBTAINED)Indication: Vaginitis and vulvovaginitis On: 64-Cea-986039:17 Request HUMAN PAPILVS, NUCLEIC ACID AMPL PROBE (24865)Indication: Vaginitis and vulvovaginitis On: :17 Request CHLAMYDIA (57227) (thin prep obtained)Indication: Vaginitis and vulvovaginitis On: 19-Tsj-442634:17 Request URINE TAMIA CULTURE (ABIGAIL COL COUNT) (24609)Indication: Dysuria On: 16-Umy-229663:14 Request LIPID PANEL (41252)Indication: Hypercholesteremia On: 1-Frs-818271:10 Request Comments: to be done in 6 months post life style changes. Thin prep Pap (93728)Indication: Well Female (V72.31) (II) On: 5-Pnj-658582:07 Request LIPID PANEL (16730)Indication: Screening for hyperlipidemia On: 31-Ynv-281520:32 Request PTT (ACTIVATED PARTIAL THROMBOPLASTIN TIME) (95557)Indication: Irregular menstrual cycle On: :28 Request PT (PROTHROMBIN TIME) (21386)Indication: Irregular menstrual cycle On: :28 Request PROLACTIN (51969)Indication: Irregular menstrual cycle On: :28 Request METABOLIC PANEL, COMPREHENSIVE (31909)Indication: Irregular menstrual cycle On: 67-Ndd-845433:28 Request TSH (54440)Indication: Irregular menstrual cycle On: 33-Jhv-555433:28 Request CBC (AUTO) (48273)Indication: Irregular menstrual cycle On: :28 Request Planned Encounters Medical; 4 Month FU - On: 26-May-2018 11:15 [facility] Cher Sampson CNP, CNP, Mary E Planned Procedures DEXA SCAN AXIAL SKELETON (06992)By: On: 21-Oct-2017 Intent Cher Sampson CNP, CNP, Mary E SCREENING DIGITAL TOMOSYNTHESIS OF On: 05-Aug-2017 Intent BREAST (34952)By: Camilla ANNE Cher Sampson DAYANA Cher Henson Aerosol Treatment (34234)By: Camilla On: 16-Jun-2017 Intent Cher ANNE DAYANA Cher Henson Spirometry (31180)By: Camilla ANNE, On: 16-Jun-2017 Intent Cher Henson Perlitamoiradamián ANNE Cher Henson SCREENING DIGITAL TOMOSYNTHESIS OF On: 30-Jul-2016 Intent BREAST (78251)By: Wanda Cole DO Aerosol Treatment (10896)By: Camilla On: 09-Jul-2016 Intent Cher ANNE DAYANA Cher Henson Solu -Medrol Injection, 125 mg On: 09-Jul-2016 Intent (J2930)By: Camilla ANNE Cher Sampson DAYANA Cher Henson Aerosol Treatment (88283)By: Jarrett On: 09-Jul-2016 Intent Florence SMITH MRI OF THORACIC SPINE WITHOUT On: 30-Nov-2015 Intent CONTRAST (32702)By: Camilla ANNE CynthiaSixto Sampson CNP Cynthia Radiology - Cervical SpineBy: Camilla On: 16-Nov-2015 Intent Cher ANNE Perlitaumair DAYANA Cher Henson PHYSICAL THERAPY EVALUATION On: 16-Nov-2015 Intent (88509)By: Camilla ANNE CynthiaSixto Sampson CNP Cynthia EMG, DYNAMIC SURFACE, 1-12 MUSCLE On: 16-Nov-2015 Intent (48428)By: Camilla ANNE Cynthia Cimoiradamián ANNE Cher Henson MAMMOGRAM BREAST BILATERAL On: 06-Jul-2015 Intent SCREENING DIGITAL (76345)By: Camilla ANNE CynthiaSixto Sampson CNP Cynthia TDAP VACCINE >7 IM (76838)By: Camilla On: 09-Oct-2014 Intent DAYANA Cher Henson Camilla ANNE Cher Henson Comments: boostrixlot [id number] 10.9.15L Dltd, IMPrefilled syringeMegan Long, LPNVIS signed Solu -Medrol Injection, 125 mg On: 15-May-2014 Intent (J2930)By: Cher Sampson CNP Comments: lot [id number] 7.29736 mgright gmIMas, STRETCHER HELPER DAYANA Cynthia Solu -Medrol Injection, 125 mg On: 04-Feb-2013 Intent (J2930)By: Cher Sampson CNP Comments: Lot: [id number]: 07/2015Amt: 125mgRoute: IMSite: RUOMey GlutealGiven by: SARAH Montoya CNP, Mary E Radiology - ChestBy: Camilla ANNE, On: 04-Feb-2013 Intent Cher King CNP Comments: call wet read to Edwin Sampson at [facility] Internal Medicine Aerosol Treatment (01170)By: Camilla On: 04-Feb-2013 Intent Cher ANNE CNP, Mary E Eprescribed prescriptions On: 04-Feb-2013 Intent (G8553)By: Cher Sampson CNP, CNP, Mary E Aerosol Treatment (00915)By: Camilla On: 10-Jan-2013 Intent Cher ANNE CNP, Mary E Eprescribed prescriptions On: 10-Jan-2013 Intent (G8553)By: Tisha Salcedo BIOPSY OF SKIN LESION, SINGLE On: 30-Jun-2012 Intent (16066)By: Cher Sampson CNP Comments: area cleaned with betadine, small incision made, lipoma extracted in pieces, no bleeding, bandage applied Cher ANNE DRAIN SKIN ABSCESS, SIMPLE/SINGLE On: 30-Jun-2012 Intent (25061)By: Cher Sampson CNP, CNP, Mary E Eprescribed prescriptions On: 28-Jun-2012 Intent (G8553)By: Maggie Jarvis LPN Spirometry (44344)By: Camilla ANNE, On: 22-Dec-2011 Intent Cher King CNP Eprescribed prescriptions On: 22-Dec-2011 Intent (G8553)By: Cher Sampson CNP, CNP, Mary E Aerosol Treatment (60518)By: Camilla On: 10-Nov-2011 Intent Cher ANNE CNP, Mary E ELECTROCARDIOGRAM, COMPLETE (ECG) On: 15-Jan-2011 Intent (21169)By: Cher Sampson CNP Comments: sinus rhythm borderline T abnormalities Cher ANNE Bio Z (75081)By: Cher Sampson CNP On: 15-Jan-2011 Intent Camilla ANNE Cynthia Comments: elevated systemic Vascular Resistance Index HIGH COMP EYE EXAMINATION, ESTAB PATIENT On: 18-Dec-2010 Intent (13938)By: Cher Sampson CNP, CNP, Mary E PHYSICAL THERAPY EVALUATION On: 12-Oct-2009 Intent (01938)By: Cher Sampson CNP, CNP, Mary E Toradol Injection, 30 mg On: 12-Oct-2009 Intent (J1885)By: Cher Sampson CNP Comments: Lot #: [id number] date: mount given: 30 mg/mlRoute: IMSite given: [...] Kely IRBY Comments: give total 1 gramLot #[id number]/12Site-left anticubitalDose1 gmgiven by:CDHIV Therapy masxfakws04Y, 1 inchSite:left anticubital Tolerated: wellno redness or swelling, no s/s infiltration THER/PROPH/DIAG INJ, SC/IM On: 16-Aug-2009 Intent (66635)By: Cher Sampson CNP, CNP, Mary E Vancoymcin 500mg/premixedBy: Ciesa On: 16-Aug-2009 Intent Cher ANNE CNP, Mary E Comments: 1 gramDay #3 THER/PROPH/DIAG INJ, SC/IM On: 15-Aug-2009 Intent (01738)By: Cher Sampson CNP, CNP, Mary E Vancoymcin 500mg/premixedBy: Ciesa On: 15-Aug-2009 Intent Cher ANNE CNP, Mary E Comments: Lot #[id number]-right anticubital given by:ANGELITO Vancoymcin 500mg/premixedBy: Ciesa On: 15-Aug-2009 Intent DAYANA Cher Henson Camilla ANNE Cynthia Comments: IV Therapy reused site from 08/14/09 22G, 1 inchSite: right anticubitalTolerated: wellno redness or swelling, no s/s infiltration DRAIN SKIN ABSCESS, SIMPLE/SINGLE On: 14-Aug-2009 Intent (70964)By: Cher Sampson CNP, CNP Cynthia Vancoymcin 500mg/premixedBy: Camilla On: 14-Aug-2009 Intent Cher ANNE CNP Cynthia THER/PROPH/DIAG INJ, SC/IM On: 13-Aug-2009 Intent (78859)By: Cher Sampson CNP, CNP Cynthia Rocephon Injection, 1 Gm On: 13-Aug-2009 Intent (J0696)By: Cher Sampson CNP, CNP, Mary E CT - AbdomenBy: Cher Sampson CNP On: 30-Jan-2009 Intent Cher Sampson CNP Radiology - Abdomen SeriesBy: Camilla On: 16-Jan-2009 Intent DAYANA CynthiaSixto Sampson CNP Cynthia Toradol Injection, 30 mg On: 09-Feb-2008 Intent (J1885)By: Cher Sampson CNP Comments: Amt: 30mgLot: [id number]: 12/2008Route: IMSite: right deltoid (per pt request)Tolerated: wellGiven By: SARAH Farrell CNP Cynthia Toradol Injection, 30 mg On: 22-Oct-2006 Intent (J1885)By: Wanda Cole DO Comments: Lot #:[id number] date:ount given:30mg/mlRoute: IMSite given:left deltoidGiven by: nidia smith MAMMOGRAM, SCREENING, BOTH BREASTS On: 04-Mar-2006 Intent (85916)By: TOI HOPKINS CNP Ultrasound - PelvisBy: SANDEEP ANNE, On: 04-Mar-2006 Intent TOI Planned Medications INJECTION, METHYLPREDNISOLONE SODIUM SUCCINATE, UP TO 125 MG Ordered: 6-Dec-2013 Pending Baljinderdamián ANNECher DAAYNA Cher Henson INJECTION, METHYLPREDNISOLONE SODIUM SUCCINATE, UP TO 125 MG Ordered: 15-May-2014 Pending Camilla DAYANACher STITCHER TAPE CONTROLLED MACHINE, Cher Henson INJECTION, METHYLPREDNISOLONE SODIUM SUCCINATE, UP TO 125 MG Ordered: 09-Jul-2016 Pending Camilla DAYANACher CNP, Mary E Instructions Name Dates Details [...] : Patient Instructions Indication: Hypercholesteremia Vaccine for jeohvmtdxd-daboipv-sctnnyfpr with poliomyelitis : How to access health information online Indication: Vaccine for bpwnmgzmqp-tcmgtjw-ztvdmwdvg with poliomyelitis Vaccine for tbkontlzbl-bnvoeve-kwufydsww with poliomyelitis : How to access health information online - Detail Indication: Vaccine for pcfirmgxko-koogigu-zvivyvlqi with poliomyelitis Vaccine for uowhwedyio-kidoskv-dmflmwfua with poliomyelitis : Patient Instructions Indication: Vaccine for cyqkokdnkz-ojaryhg-yvkshyjat with poliomyelitis Hypercholesteremia : Patient Instructions Indication: Hypercholesteremia Wheezing : Patient Instructions Indication: Wheezing Cough : Patient Instructions Indication: Cough Lipoma of lower extremity : Patient Instructions Indication: Lipoma of lower extremity Sebaceous cyst : Patient Instructions Indication: Sebaceous cyst Hypercholesteremia : Patient Instructions Indication: Hypercholesteremia Encounters Annotation/Addendum On: 03-Feb-2018 10:40 Encounter Diagnosis: Pain [...] runny nose. Note for Cough : Since , Coughin to point of vomit End: 10-Jan-2013 [...] was stung last w End: 22-Oct-2006 16:16 [place] by a bee.). The course has been [...] [facility] Payers Medical [facility]3]Vonnie Gilbert; a guarantor
--- OUTSIDE RECORDS SUMMARY | 2018-05-25 02:28 | XMS RPT_ITS | Continuity of Care Document ---
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 Will refer to [facility] if persists. Status: Inactive as of 17-Jul-2008 [...] Density Study Result: Comments: See Note; NOTES: [facility] Imaging Services [address] [place] [address] Dexa Bone Density Study MR#: [id number] Acct: [id number] Name: VONNIE GILBERT Rep #: [id number] : 1965 F 51 From: Pola García MD PCP: Cher Sampson NP Status: REG CLI Study: Dexa Bone Density Study Date of Exam: 10/29/17 Exam# [id number] Ordering Dr: Cher Sampson STUDY: DUAL ENERGY [...] Pola García MD at 15:46 EDT Tel [phone], Service support , CC: Cher Sampson NP Vocational Education Teacher: Signed 20-Aug-2017 SCREENING MAMM (CAD), BILAT Result: Comments: See Note; NOTES: [facility] Imaging Services [address] [place] [address] SCREENING MAMM (CAD), BILAT MR#: [id number] Acct: [id number] Name: VONNIE GILBERT Rep # : [id number] : 1965 F 51 From: Pola García MD PCP: Cher Sampson NP Status: REG CLI Study: SCREENING MAMM (CAD), BILAT Date of Exam: 08/20/17 Exam# [id number] Ordering Dr: Cher Sampson [facility] MOGRAPHY - BILATERAL SCREENING REASON FOR [...] delay biopsy of a clinically suspicious abnormality. [id number] Electronically Signed: Pola García MD at 12:57 EDT Tel [phone], Service support , CC: Cher Sampson NP Vocational Education Teacher: Signed 20-Aug-2017 Downtime Report Result: Comments: See Note; NOTES: [facility] Medical Records Department [address] [place] [address] Downtime Report MR#: [id number] Acct: [id number] Name: VONNIE GILBERT Rep #: [id number] : 1965 51 From: Jesse Carrasco PCP: Cher Sampson NP Status: REG CLI This patient was seen during an EMR downtime August 03, 2017 - August 10, 2017. This patient may have a combination of paper and electronic documentation or all paper documentation. All documentation is viewable within the e-chart portion of [employer] for each patient visit. 19-Aug-2017 Downtime Report Result: Comments: See Note; NOTES: [facility] Medical Records Department [address] [place] [address] Downtime Report MR#: [id number] Acct: [id number] Name: VONNIE GILBERT Rep #: [id number] : 1965 51 From: Jesse Carrasco MD PCP: Cher Sampson NP Status: DEP ER This patient was seen during an EMR downtime August 03, 2017 - August 10, 2017. This patient may have a combination o f paper and electronic documentation or all paper documentation. All documentation is viewable within the e-chart portion of [employer] for each patient visit. 09-Apr-2017 Urgent Care Visit Report Result: Comments: See Note; NOTES: [facility] [address] [place] [address] [address] [place] [address] OFFICE VISIT Date of Service: 04/09/17 MR#: [id number] Acct: [id number] Name: VONNIE GILBERT Rep #: [id number] : 1965 Provider: Donnie SOTOMAYOR Age/Sex: 51/F Location: [facility] Status: Signed Intake Vital Signs04/09/17 Height 5 ft 9 in 04/09/17 Weight: 241 lb 04/09/17 Body Mass Index (B OR) 35.6 Intake Visit Reasons: ILL Harness Brusher Required: No Is patient in pain?: No Allergies No Known Allergies Allergy (Verified 04/09/17 16:32) Medications Atorvastatin Calcium [Lipitor] 20 mg PO DAILY 05/11/13 [History Confirmed 04/09/17] Nebivolol HCl [Bystolic] 10 mg PO DAILY 05/11/13 [History Confirmed 04/09/17] Estradiol [Estrace] 2 mg PO DAILY 10/04/16 [History Confirmed 04/09/17] Dejesus xicam 7.5 mg PO DAILY 10/04/16 [History Confirmed 04/09/17] [facility]LY [facility], [facility] Medical History HTN (hypertension) (Chronic) Surgical History [...] Diagnoses URI (upper respiratory infection) J06.9 04/09/17 0686 <Electronically signed by Donnie SOTOMAYOR> Date Donnie Murrieta Signature: Date (if applicable) CC: 03-Apr-2017 Massage Therapy Evaluation Result: Comments: See Note; NOTES: [facility] 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 She was referred to the [facility] facility [...] CC: Cher Sampson NP LYUBOV Signed For [facility] care only, by signing this I certify the plan of care. Physicians Signature Date 16-Mar-2017 Urgent Care Visit Report Result: Comments: See Note; NOTES: [facility] [address] [place] [address] OFFICE VISIT Date of Service: 03/16/17 MR#: [id number] Acct: [id number] Name: VONNIE GILBERT Rep #: [id number] : 1965 Provider: Kris SOTOMAYOR Age/Sex: 51/F Location: [facility] Status: Signed Intake Vital Signs03/16/17 Height 5 [...] fatigue Exam Const General: cooperative, healthy appearing [facility] Head: normocephalic, atraumatic Ears: hearing grossly normal [...] the above. This note was generated with [employer] dictation software. It may contain incorrect words, spelling, and punctuation that were not noted in checking the note before signing. Orders Orders: Coding Level of Care Code Off vis,new,level 3 Diagnoses RUQ abdominal pain R10.11 03/16/17 1210 <Electronically signed by Kris SOTOMAYOR> Date Kris SOTOMAYOR Cosigner Signature: Date (if applicable) CC: 27-Feb-2017 Discharge Summary Result: Comments: See Note; NOTES: [facility] Medical Records Department [address] [facility] [place] [address] Discharge Summary 02/27/17 1309 MR#: [id number] Acct: [id number] Name: VONNIE GILBERT Rep #: [id number] : 1965 51 From: Yvrose Pickard PCP: [...] discharge this patient from our care at [facility]. Sincerely, Yvrose Pickard LMT 02/27/17 1315 <Electronically signed by Yvrose Pickard > Date Yvrose Pickard Cosigner Signature (if applicable): Date ____ CC: Cher Sampson CLAIM PROFESSIONAL; Yvrose Pickard Signed 04-Oct-2016 Emergency Department Summary Result: Comments: See Note; NOTES: [facility] Medical Records Department [address] [facility] [place] [address] Emergency Department Summary 10/04/16 2158 MR#: [id number] Acct: [id number] Name: VONNIE GILBERT Rep #: [id number] : 1965 50 From: Jaylen Khan MD [...] your Primary Care Provider. Call [facility] ([phone]) or report to the closest Emergen cy Room. Call 911 if necessary. 10/04/16 9011 <Electronically signed by Jaylen Khan MD> Date Jaylen Khan MD Cosigner Signatur e (If Indicated): Date CC: Cher Sampson 15-Aug-2016 SCREENING MAMM (CAD), BILAT Result: Comments: See Note; NOTES: [facility] Imaging Services [address] [place] [address] Verdana 4d SCREENING MAMM (CAD), BILAT MR#: [id number] Acct: [id number] Name: Gwen GILBERT Rep #: [id number] : 1965 F 50 From: Pola García MD PCP: Cher Sampson Status: REG CLI Study: SCREENING MAMM (CAD), BILAT Date of Exam: 08/15/16 Exam# [id number] Ordering Dr: Jonathan Sampson MAMMOGRAPHY - BILATERAL [...] delay biopsy of a clinically suspicious abnormality. [id number] Electronically Signed: Pola García MD at 10:21 EDT Tel [phone], Serv ice support , CC: Cher Sampson Vocational Education Teacher: Signed 04-Mar-2016 PT Discharge Summary Result: Comments: See Note; NOTES: [facility] [address] [place] [address]. [address] [place] [address] Fax REHABILITATION SERVICES DISCHAR GE SUMMARY MR#: [id number] Acct: [id number] Name: VONNIE GILBERT Rep #: [id number] : 1965 50 From: Susu Malin Referring [...] the patient from our care at the [facility] facility. Susu Malin LMT T: REG JOB: [id number] &#60 ;Electronically signed by Susu Malin > 03/04/16 0643 CC: Cher Sampson Signed 28-Feb-2016 PT Discharge Summary Result: Comments: See Note; NOTES: [facility] Therapy [address] [place], [place] [address] Fax REHABILITATION SERVICES DISCHAR GE SUMMARY MR#: [id number] Acct: [id number] Name: VONNIE GILBERT Rep #: [id number] : 1965 50 From: Susu Malin Referring [...] the patient from our care at the [facility] facility. Susu Malin LMT T: REG JOB: [id number] &#60 ;Electronically signed by Susu Malin > 02/28/16 1658 CC: Cher Sampson Signed 29-Jan-2016 PT D/C of Non Returning Pt (1) Result: Comments: See Note; NOTES: [facility] Physical Therapy [address] [place] [address] Fax REHABILITATION SERVICES DISCHAR GE SUMMARY MR#: [id number] Acct: [id number] Name: VONNIE GILBERT Rep #: [id number] : 1965 50 From: Noam Martinez PT, Cert. T, OCS Referring Dr.: Cher Sampson Status: REG RCR Insurance: [facility] [employer] [facility] HP - Discharge Summary (1) - Patient [...] Cervical (Routine) Result: Comments: See Note; NOTES: [facility] Imaging Services [address] [place] [address] Verdana 4d Spine Cervical (Routine) MR#: [id number] Acct: [id number] Name: NOHEIM GILBERT Rep #: [id number] : 1965 F 49 From: Kendal Cox DO PCP: Cher Sampson Status: REG CLI Study: Spine Cervical (Routine) Date of Exam: 12/07/15 Exam# [id number] Ordering Dr: Cher Sampson Y: MRI CERVICAL [...] at 1:40 EDT Tel , Service support [phone], CC: Cher Sampson Vocational Education Teacher: Signed 19-Nov-2015 Inital Evaluation (1) - PT Result: Comments: See Note; NOTES: [facility] Physical Therapy [address] [place] [address] Fax REHABILITATION SERVICES INITIA L EVALUATION MR#: [id number] Acct: [id number] Name: VONNIE GILBERT Rep #: [id number] : 1965 49 From: Noam Osman Referring Dr.: Cher Sampson Status: REG RCR Insurance: [facility] [employer] [facility] Patient's Visit Information VONNIE GILBERT is a [...] to be FAXED BACK to us at [phone] for Medicare purposes. Please let me know if there are questions or concerns regarding this plan of care. Physician Si gnature: Date: <Electronically signed by Noam Osman > 11/19/15 1129 CC: Cher Sampson KARLEY Sign ed For Medicare only, by signing this I certify the plan of care. Physicians Signature Date 16-Nov-2015 Cerv Spine 4 or 5 Views Result: Comments: See Note; NOTES: [facility] Imaging Services [address] [place] [address] Verdana 4d Cerv Spine 4 or 5 Views MR#: [id number] Acct: [id number] Name: VONNIE GILBERT Rep #: [id number] : 1965 F 49 From: Pola García MD PCP: Cher Sampson Status: REG CLI Study: Cerv Spine 4 or 5 Views Date of Exam: 11/16/15 Exam# [id number] Ordering Dr: Cher Sampson: X-RAY - CERVICAL [...] Pola García MD at 14:54 EDT Tel [phone], Service support [phone], CC: Cher Sampson Vocational Education Teacher: Signed 01-Aug-2015 Inital Evaluation - PT Result: Comments: See Note; NOTES: [facility] Physical [facility] [address] [place] [address]. [address] [place], [place] [address] Fax REHABILITATION SE RVICES INITIAL EVALUATION MR#: [id number] Acct: [id number] Name: VONNIE GILBERT Cruz Rep #: [id number] : 1965 49 From: Susu Garcia Referring : Cher Sampson Status: REG RCR Insura nce: [facility] Eval Date: DATE OF SERVICE: 03/30/2015 REFERRING PHYSICIAN: Dr. 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 Sampson [...] sessions. Susu Garcia LMT T: REG JOB: [id number] <Electronically signed by Suus Garcia > 08/01/15 1909 CC: Signed For Medicare only, by signing this I certify the plan of care. Physicians Signature Date 20-Jul-2015 Bilat Scrn Digital AND CAD Result: Comments: See Note; NOTES: [facility] Imaging Services [address] [place] [address] Paulinofarhad 4d Bilat Scrn Digital AND CAD MR#: [id number] Acct: [id number] Name: VONNIE GILBERT Rep #: [id number] : 1965 F 49 From: Pola García MD PCP: Cher Sampson Status: REG CLI Study: Bilat Scrn Digital AND CAD Date of Exam: 07/20/15 Exam# [id number] Joellein g Dr: Cher Sampson MAMMOGRAPHY - [...] delay biopsy of a clinically suspicious abnormality. [id number] Electronic ally Signed: Pola García MD at 12:25 EDT Tel [phone], Service support [phone], CC: Cher Sampson Vocational Education Teacher: Signed 05-Mar-2015 PT Discharge Summary Result: Comments: See Note; NOTES: [facility] [address] [place] [address]. [address] [place], [place] [address] Fax REHABILITATION SE RVICES DISCHARGE SUMMARY MR#: [id number] Acct: [id number] Name: VONNIE GILBERT Rep #: [id number] : 1965 49 From: Susu Garcia Referring [...] the patient from our care at the [facility] facility. Susu Garcia LMT T: NTS JOB: [id number] <Electronically signed by Susu Garcia & #62; 03/05/15 1201 CC: Cher Sampson Signed 24-Apr-2014 Inital Evaluation - PT Result: Comments: See Note; NOTES: [facility] Physical Therapy [address] [place], [place] [address] Fax REHABILITATION SERVICES INITIAL EVALUATION MR#: [id number] Acct: [id number] Name: VONNIE GILBERT Rep #: [id number] : 1965 48 From: Susu Garcia Referring DrAshutosh: Cher Sampson Status: DIS RCR Insurance: [facility] [employer] SERVICES Eval Date: DATE OF SERVICE: 03/17/2014 REFERRING PHYSICIAN: Dr. Cher Sampson. 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 She was referred to the [facility] facility for massotherapy evaluation by Dr. Sampson [...] sessions. Susu Garcia LMT T: REG JOB: [id number] <Electronically signed by Susu Garcia > 04/24/14 1107 CC: Signed For Medicare only, by sign ing this I certify the plan of care. Physicians Signature Date 10-Mar-2014 PT Discharge Summary Result: Comments: See Note; NOTES: [facility] [address] [facility] [place] [address] Fax REHABILITATION SERVICES DISCHARGE SUMMARY MR#: [id number] Acct: [id number] Name: VONNIE GILBERT Rep #: [id number] : 1965 48 From: Susu Garcia Referring [...] the patient from our care at the [facility] facility. Susu Garcia LMT T: REG JOB: [id number] <Electronically signed by Susu Garcia > 03/10/14 1104 CC: Signed 16-Jun-2013 Inital Evaluation - PT Result: Comments: See Note; NOTES: [facility] Physical Therapy [address] [place] [id number] Fax REHABILITATION SERVICES INITIAL EVALUATION MR#: [id number] Acct: [id number] Name: VONNIE GILBERT Rep #: [id number] : 1965 47 From: Susu Garcia Referring Dr.: Cehr Sampson Status: DIS RCR Insurance: [facility] Eval Date: DATE OF SERVICE: 05/25/2013 REFERRING PHYSICIAN: Dr. Cher Sampson. 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 [...] Susu Garcia LMT T : REG JOB: [id number] <Electronically signed by Susu Garcia > 06/16/13 1650 CC: Signed For Medicare only, by signing this I certify the plan of c are. Physicians Signature Date 19-Feb-2013 PT Discharge Summary Result: Comments: See Note; NOTES: [facility] Physical Therapy [address] [place] [address] Fax REHABILITATION SERVICES DISCHARGE SUMMARY MR#: [id number] Acct: [id number] Name: MARTINVONNIE Arroyo Rep #: [id number] : 1965 47 From: Susu Garcia Referring [...] the patient from our care at the [facility]. Susu Garcia LMT T: NTS JOB: [id number] &amp ;#60;Electronically signed by Susu Garcia > 02/19/13 1043 CC: * Signed 04-Feb-2013 Chest PA and Lateral Result: Comments: See Note; NOTES: [facility] Imaging Services [address] [place] [address] Radiology Report MR#: [id number] Acct: [id number] Name: VONNIE GILBERT Rep #: [id number] : 1965 F 47 From: Pola García MD PCP: [facility]: Chest PA and Lateral Date of Exam: 02/04/13 Exam# [id number] Ordering Dr: Cher Sampson STUDY: X-RAY CHEST [...] M.D. 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 [place], [place], [id number] VLDL 62 mg/dL (Abnormal) Range: 5-40 LDL [...] 200-240 mg/dL Borderline >240 mg/dL High Risk 34-Snl-615988:25 Uric Acid Comments: [facility] [address] [place], [place], [address] URIC 5.8 mg/dL (Normal) Range: 2.6-6.0 Comments: The drugs N-Acetylcysteine and Metamizole may falselydepress this assay. 5-Dea-244775:05 CBC, Employee Comments: [facility] [address] [place], [place], [address] Absolute Lymph 2.40 {X10_3/ul} (Normal) Range: 0.83-4.51 [...] 4.2-5.4 WBC 7.4 K/mm3 (Normal) Range: 4.4-11.0 1-Nnt-948590:05 Employee Profile Comments: [facility] [address] [place], [place], [address] LDH 167 U/L (Normal) Range: 84-246 VLDL [...] Comments: Please note revised GLUCOSE reference range zusjdhmkh23/02/2018. 4-Yii-778288:05 Nicotine Urine Drug Screen Comments: [facility] [address] [place], [address] COT DRG SCREEN Negative (Normal) Comments: Cotinine [...] result, particularly whenpreliminary positive results are used. 5-Hvm-104208:05 Urinalysis, Employee Comments: [facility] [address] [place], [place], [address] LEUK ESTERASE Negative /ul (Normal) OCCULT BLOOD-UR Negative /ul (Normal) NITRITE UR Negative (Normal) UROBILI Normal mg/dL (Normal) PROT DIPSTX Negative mg/dL (Normal) pH UR 5.0 (Normal) Range: 5.0 - 8.0 SP.GR. DIPSTX 1.020 (Normal) Range: 1.002-1.030 KETONE UR Negative mg/dL (Normal) BILIRUBIN URINE Negative mg/dL (Normal) GLUCOSE, UR Normal mg/dL (Normal) CLARITY Clear (Normal) COLOR Yellow (Normal) 84-Iyt-652633:27 CBC W/Diff, Automated Comments: [facility] [address] [place], [place], [address] Absolute Lymph 2.41 {X10_3/ul} (Normal) Range: 0.83-4.51 [...] 4.2-5.4 WBC 9.1 K/mm3 (Normal) Range: 4.4-11.0 31-Jne-533494:27 Comprehensive Metabolic Profil Comments: [facility] [address] [place], [address] GAP 9 (Normal) Range: 5-15 CO2 24.0 [...] 7-18 GLU 84 mg/dL (Normal) Range: 70-110 7-Mhk-734770:55 CBC, Employee Comments: [facility] [address] [place], [place], [address] Absolute Lymph 2.01 {X10_3/ul} (Normal) Range: 0.83-4.51 [...] 4.2-5.4 WBC 7.2 K/mm3 (Normal) Range: 4.4-11.0 9-Nzw-313271:55 Employee Profile Comments: [facility] [address] [place], [place], [address] LDH 178 U/L (Normal) Range: 84-246 VLDL [...] 7-18 GLU 81 mg/dL (Normal) Range: 70-110 3-Igq-820620:55 Nicotine Urine Drug Screen Comments: [facility] [address] [place], [place], [address] COT DRG SCREEN Negative (Normal) Comments: Cotinine [...] result, particularly whenpreliminary positive results are used. 0-Wbl-340570:55 Urinalysis, Employee Comments: [address] [place], [address] LEUK ESTERASE Negative /ul (Normal) [...] (Normal) 03-Jul-20169:40 Culture, R/O Strep A Comments: [address] [place], [address] CUSTREPA See Note (Normal) Comments: [...] culture is required. :56 CBC, Employee Comments: [facility] [address] [place], [place], [address] Absolute Lymph 2.21 {X10_3/ul} (Normal) Range: 0.83-4.51 [...] (Normal) Range: 4.4-11.0 :56 Employee Profile Comments: [facility] [address] [place], [place], [address] LDH 190 U/L (Normal) Range: 84-246 VLDL [...] 70-110 :56 Nicotine Urine Drug Screen Comments: [facility] [address] [facility]. [place], [place], [address] COT DRG SCREEN Negative (Normal) Comments: Cotinine [...] Urinalysis, Employee Comments: How was Urine Obtained? [facility] [address] [facility]. [place], [place], [address] LEUK ESTERASE 25 /ul (Abnormal) OCCULT BLOOD-UR Negative /ul (Normal) NITRITE UR Negative (Normal) UROBILI Normal mg/dL (Normal) PROT DIPSTX 15 mg/dL (Abnormal) pH UR 5.0 (Normal) Range: 5.0 - 8.0 SP.GR. DIPSTX 1.020 (Normal) Range: 1.002-1.030 KETONE UR Negative mg/dL (Normal) BILIRUBIN URINE Negative mg/dL (Normal) GLUCOSE, UR Normal mg/dL (Normal) CLARITY Clear (Normal) COLOR Yellow (Normal) :53 Lipid Profile Comments: [facility] [address] [facility] [place], [address] VLDL 40 mg/dL (Normal) Range: [...] Risk :04 CBC, Employee Comments: Test performed at:[facility] [address] [place] [address] Absolute Lymph 2.04 {X10_3/ul} (Normal) [...] 4.2-5.4 WBC 5.4 K/mm3 (Normal) Range: 4.4-11.0 03-Apx-906962:04 Employee Profile Comments: Test performed at:[facility] [address] [place] [address] LDH 190 U/L (Normal) Range: 84-246 VLDL [...] Comments: Please note revised CREATININE reference range nkutjqaqe06/22/2015. BUN 17 mg/dL (Normal) Range: 7-18 GLU 89 mg/dL (Normal) Range: 70-110 87-Kaw-369949:04 Urinalysis, Employee Comments: Test performed at:[facility] [address] [place] [address] LEUK ESTERASE Negative /ul (Normal) OCCULT BLOOD-UR Negative /ul (Normal) NITRITE UR Negative (Normal) UROBILI Normal mg/dL (Normal) PROT DIPSTX Negative mg/dL (Normal) pH UR 6.0 (Normal) Range: 5.0 - 8.0 SP.GR. DIPSTX 1.015 (Normal) Range: 1.002-1.030 KETONE UR Negative mg/dL (Normal) BILIRUBIN URINE Negative mg/dL (Normal) GLUCOSE, UR Normal mg/dL (Normal) CLARITY Sl. Cloudy (Normal) COLOR Yellow (Normal) 83-Erm-867843:45 CBCEM ALC 1.82 {X10_3/ul} (Normal) Range: 0.83-4.51 [...] 4.2-5.4 WBC 5.9 K/mm3 (Normal) Range: 4.4-11.0 15-Tmf-388468:45 EMP Comments: [facility] EMPLOYEE ANNUAL [facility] SVCATTN MICHAEL BUSBY....NO NOT MAIL LDH [...] CHOL 201 mg/dL (Abnormal) Comments: <200 mg/dL Fwlqjxksg554-660 mg/dL Borderline>240 mg/dL High Risk BID 0.14 [...] 7-18 GLU 103 mg/dL (Normal) Range: 70-110 58-Ngx-959295:45 UAEM DAMIÁN Negative /ul (Normal) UOB Negative /ul (Normal) SYLVIA Negative (Normal) UROBU Normal mg/dL (Normal) uPROTU Negative mg/dL (Normal) ELISE 5.0 (Normal) Range: 5.0 - 8.0 SGU 1.020 (Normal) Range: 1.002-1.030 KETU Negative mg/dL (Normal) BILIU Negative mg/dL (Normal) GLUR Normal mg/dL (Normal) UCLAR Sl. Cloudy (Normal) UCOL Yellow (Normal) 8-Gcu-577022:12 DDIMQ 0.30 {FEUug/mL} (Normal) Range: 0.22-0.48 Comments: NORMAL D-Dimer level indicates no DVT or PE. 4-Alt-743076:23 Pathology Report Comments: PERFORMED BY: [facility] Jdcn25415 [facility] [id number] Information: [id number] See MATER Comments: Material submitted: .EXCISION RIGHT [...] as received in cassette A./LMSLMS/LMSPathologist provided ICD-9:214.9CPT .740706 26-Cus-841156:23 LIPID VLDL 30 mg/dL (Normal) Range: 5-40 [...] Very High > or = 500 mg/dL 04-Jeo-471029:23 LIVER BID 0.08 mg/dL (Normal) Range: 0.00-0.30 BIT 0.50 mg/dL (Normal) Range: 0.00-1.00 ALK 86 U/L (Normal) Range: 50-136 ALT 30 U/L (Normal) Range: 12-78 ALB 4.1 g/dL (Normal) Range: 3.4-5.0 AST 17 U/L (Normal) Range: 15-37 TPROT 7.2 g/dL (Normal) Range: 6.4-8.2 03-Vqe-337028:06 LIPID VLDL 41 mg/dL (Abnormal) Range: 5-40 [...] 25.8 - 134.8Performed at: CB - [facility] [address]qx[address] [place], [place] [id number] Director: Mary Mccallum MD, Phone: [phone] :[phone] LIVER Comments: appt 02/11/11 D BILI [...] - 11.4 Postmenopausal 7.7 - 58.5 :22 PROT.[id number] M-SPIKE,U SeeNote % (Normal) Comments: Result: Not Observed NOTE Comment (Normal) Comments: Protein electrophoresis scan will follow via computer,mail, or medicaid specialist delivery. GAMMA GLOB,U 11.4 % (Normal) IDJFI-5-CWXW,U 9.0 % (Normal) BETA GLOB,U 24.2 % (Normal) NRKQB-2-TBZL,U 1.7 % (Normal) ALBUMIN,UR 53.7 % (Normal) PROTEIN,UR 24.6 mg/dL (Abnormal) Range: 0.0-15.0 :22 SPE [id number] INTERPRETATION Comment (Normal) Comments: The SPE pattern appears essentially unremarkable. Evidenceof monoclonal protein is not apparent.Protein electrophoresis scan will follow via computer,mail, or medicaid specialist delivery. A/G RATIO 1.3 (Normal) Range: 0.7-2.0 [...] 200-240 mg/dL Borderline >240 mg/dL High Risk 78-Pka-547527:03 MICROALB:CRE UR MALB:CREAT 41.3 {mg/g_CRE} (Abnormal) MICROALBUMIN,UR 66.0 mg/L (Normal) UR CREAT 159.7 mg/dL (Normal) :03 TSH 1.16 {uIU/mL} (Normal) Range: 0.358-3.74 71-Wir-770332:57 CERV SPINE,MIN 4 VIEWS Radiology Report See Note (Normal) Comments: Exam Number: [id number] CLINICAL:43-year-old female with neck pain. X-RAY EXAMINATION: [...] Report See Note (Normal) Comments: Exam Number: [id number] MYOCARDIAL PERFUSION SCAN 11.3 mCi of Tc99m [...] fraction. Reported By: ANNA MARIE PANTOJA M.D. 37-Tcd-680810:42 CBCD,SMEAR DIFF RED CELL MORPH SeeNote {NORMAL} [...] 4.2-5.4 WBC 6.8 K/mm3 (Normal) Range: 4.4-11.0 44-Fqh-662555:42 RENAL CL 103 mmol/L (Normal) Range: 98-107 [...] 2.5-4.9 GLU 102 mg/dL (Normal) Range: 70-110 38-Qts-448965:26 Aerobic Bacterial Culture Comments: PATIENT NOT FASTINGPERFORMED BY: [facility]6370 [facility] [id number] Information: SRC: RIGHT ARM Antimicrobial MIHEAD (Normal) [...] oxacillin predictssusceptibility or resistance to (a) other vuwe-nhlawxpev-yaacpjymldcuuyjgr such as cloxacillin and dicloxacillin, (b) co (Normal) mbinationsof a penicillin and a beta-lactamase inhibitor, and(c) anti- staphylococcal cephalosporins. Routine testing of otherpenicillins, beta-lactam/beta-lactamase inhibitor combinations,cephems, and c arbapenems is not advised by the CLSI Standards(R213-J49, 2005). Aerobic Bacterial Final report (Normal) Culture 0-Hoo-840258:45 SED RATE ERYTHROCYTE ([id number]) Comments: PATIENT NOT FASTINGPERFORMED BY: [facility] Tjvzhl5923 [facility] [id number] Sedimentation Rate-Westergren 2 mm/h (Normal) Range: 0-20 :45 CBC with manual diff (73157) Comments: PATIENT NOT FASTINGClinical Information: [id number] PERFORMED BY: [facility] Ycjbey5653 [facility] [id number] Baso (Absolute) 0.0 {x10E3/uL} (Normal) Range: 0.0-0.2 [...] FUNCTION PANEL Comments: PATIENT NOT FASTINGPERFORMED BY: [facility] HospitalFeqlxt0948 [facility] [id number] ([id number]) Bilirubin, Direct 0.14 mg/dL (Normal) Range: 0.00-0.40 6-Oag-724515:45 Metabolic Panel, Comprehensive Comments: PATIENT NOT FASTINGPERFORMED BY: [facility] Gggwwn1275 [facility] [id number] ([id number]) A/G Ratio 2.0 (Normal) Range: 1.1-2.5 Albumin, [...] Sodium, Serum 139 mmol/L (Normal) Range: 135-145 8-Rlp-125473:03 Urinalysis, Office (57618) UA - BLOOD Negative (Normal) UA - LEUKOCYTE ESTERASE Negative (Normal) UA - NITRITE Negative (Normal) UA - PH 6.0 (Normal) UA - PROTEIN Negative mg/dL (Normal) URINE UROBILINGN ABIGAIL TIMED Normal mg/dL (Normal) UA - BILIRUBIN Negative (Normal) UA - GLUCOSE Negative (Normal) UA - KETONES Negative mg/dL (Normal) UA - SPECIFIC GRAVITY 1.025 (Normal) 7-Wzx-800503:47 ABDOMEN WITH IV CONTRAST Radiology Report See Note (Normal) Comments: Exam Number: [id number] HISTORYRight side abdominal pain. CT ABDOMEN WITH [...] likely represent cysts. Reported By: Minor Boateng 79-Kja-249806:21 ACUTE ABDOMEN, INC CHEST (MT) Radiology Report See Note (Normal) Comments: Exam Number: [id number] CLINICAL:Right upper quadrant pain. X-RAY EXAMINATION: CHEST [...] upper quadrant. Reported By: MICHAELA MARK M.D. 38-For-288863:15 CBC with manual diff (60741) Comments: PATIENT NOT FASTINGClinical Information: [id number] PERFORMED BY: [facility]370 [facility] [id number] Baso (Absolute) 0.0 {x10E3/uL} (Normal) Range: 0.0-0.2 [...] 11.7-15.0 WBC 6.0 {x10E3/uL} (Normal) Range: 4.0-10.5 37-Nfb-453325:15 Metabolic Panel, Comprehensive Comments: PATIENT NOT FASTINGPERFORMED BY: [facility] HospitalMjhgnw0359 [facility] [id number] ([id number]) A/G Ratio 1.8 (Normal) Range: 1.1-2.5 Albumin, [...] Sodium, Serum 139 mmol/L (Normal) Range: 135-145 12-Qsp-899194:15 HEPATIC FUNCTION PANEL Comments: PATIENT NOT FASTINGPERFORMED BY: [facility] Ynuvmp7921 [facility] [id number] ([id number]) Bilirubin, Direct 0.11 mg/dL (Normal) Range: 0.00-0.40 5-Tqh-400417:34 CBC, EMPLOYEE HCT 42.3 % (Normal) Range: 37-47 HGB 14.6 g/dL (Normal) Range: 12.0-16.0 MCH 30.1 pg (Normal) Range: 27.0-32.0 MCHC 34.6 g/dL (Normal) Range: 32-36 MCV 87.1 fL (Normal) Range: 81-99 MPV 8.1 fL (Normal) Range: 6.5-12.0 PLT 349 K/mm3 (Normal) Range: 150-450 RBC 4.86 {M/mm3} (Normal) Range: 4.2-5.4 RDW 12.6 % (Normal) Range: 11.6-14.6 WBC 5.5 K/mm3 (Normal) Range: 4.4-11.0 3-Pmz-545981:34 EMP PROF A/G 1.2 {RATIO} (Normal) Range: [...] for patient's is the eGFRmultiplied by 1.212. [facility] Laboratory uses the abbreviated Modification of [...] Disease W/O Kidney Disease>/= 90 Stage One Meihip45 - 89 Stage Two Suspect Decreased GFR30 [...] 2.6-6.0 VLDL 14 mg/dL (Normal) Range: 5-40 2-Sad-648619:34 EMP URINALYSIS BILIRUBIN URINE SeeNote (Normal) Comments: [...] 0.2 EU/dl (Normal) Range: 0.2 - 1.0 22-Psx-387245:52 Pap Lb, Ct-Ng, Comments: Source.............Cervical;EndocervicalNo. of containers..01 CYTYC Thin Prep VialPERFORMED BY: =G [facility] [place] [address] [place] [id number] HPV-hr . . (Normal) Chlamydia, Nuc. Acid Amp Negative (Normal) DIAGNOSIS: SPRCS (Normal) Comments: NEGATIVE FOR INTRAEPITHELIAL LESION AND MALIGNANCY.Satisfactory for evaluation. Endocervical and/or squamous metaplasticcells (endocervical component) are present.616.10 ; Unspecified vagin itis and vul vovaginitisNatalie A Nataliya, Hemotherapist Gonococcus, Nuc. Acid Amp Negative (Normal) Note: PAPSMR (Normal) Comments: The Pap smear is a screening test designed to aid in the detection ofpremalignant and malignant conditions of the uterine cervix. It is not adiagnostic procedure and should not be used as the sole mean s of detectingcervical cancer. Both false-positive and false-negative reports do occur. . 49-Ujy-237870:37 Urinalysis, Office (82546) UA - LEUKOCYTE ESTERASE Negative (Normal) Comments: aw UA - BILIRUBIN Negative (Normal) UA - BLOOD Negative (Normal) UA - GLUCOSE Negative (Normal) UA - KETONES Negative mg/dL (Normal) UA - NITRITE Negative (Normal) UA - PH 5.0 (Normal) UA - PROTEIN Negative mg/dL (Normal) UA - SPECIFIC GRAVITY 1.020 (Normal) URINE UROBILINGN ABIGAIL TIMED Normal mg/dL (Normal) 67-Axr-63665:51 CBC, EMPLOYEE HCT 38.2 % (Normal) Range: [...] Range: 0.2 - 1.0 COLOR YELLOW (Normal) 90-Ntm-074335:15 Urinalysis, Office (73555) UA - BILIRUBIN Large (Normal) UA - BLOOD Non Hemolyzed Trace (Normal) UA - GLUCOSE Negative (Normal) UA - KETONES Negative mg/dL (Normal) UA - LEUKOCYTE ESTERASE Trace (Normal) Comments: aw UA - NITRITE Negative (Normal) UA - PH 5.0 (Normal) UA - PROTEIN Negative mg/dL (Normal) UA - SPECIFIC GRAVITY 1.020 (Normal) URINE UROBILINGN ABIGAIL TIMED Normal mg/dL (Normal) 38-Atm-411880:15 CULTURE, URINE URINE CULTURE See Note {CFU/mL} [...] - 208.5 Postmenopausal 1.8 - 20.3Performed At: [facility] [place], [place] [id number] :52 PTT 30.5 s (Normal) Range: 24.6-36.6 [...] symptoms worsen Indication: Motion sickness Vaccine for orgxnduffp-cyeaapj-uouszfddb with poliomyelitis : Eprescribed prescriptions (G8553) Indication: Vaccine for perqfuwyaw-uwmfgrj-xfkxuphtk with poliomyelitis Cough : Follow up if [...] : FOLLOW UP IN 2 WEEKS with [facility] Indication: Cervical strain Cervical strain : [...] specified site : FOLLOW UP TOMORROW with [facility] for IV vancomycin Day #3 Indication: Cellulitis and abscess of other specified site Insect bite, nonvenomous of shoulder and upper arm, infected : FOLLOW UP TOMORROW for IV vanco over 1 hr with [facility] Indication: Insect bite, nonvenomous of shoulder and upper arm, infected Cellulitis and abscess of other specified site : I/D Cyst/Abscess Indication: Cellulitis and abscess of other specified site Candidiasis, mouth : FOLLOW UP TOMORROW with [facility] Indication: Candidiasis, mouth Hypercholesteremia : Cholesterol [...] (gastroesophageal reflux disease) Planned Observations LIPID PANEL (49357)Indication: Hypertriglyceridemia On: 07-Ikf-310538:01 Request URIC ACID BLOOD (38660)Indication: Elevated uric acid in blood On: 2-Roi-676731:41 Request Lipid Panel (69337)Indication: Hypertriglyceridemia, sporadic On: 6-Sjr-878252:40 Request Comments: fasting Lipid Panel (00868)Indication: Hypercholesteremia On: 66-Fqe-299461:20 Request Comments: to be done in 6 weeks at [facility] DDimer (00829)Indication: Cough On: 4-Npc-163049:12 Request Lipid Panel (78923)Indication: Hypercholesteremia On: 91-Pst-393906:08 Request Comments: fasting HEPATIC FUNCTION PANEL (33658)Indication: Hypercholesteremia On: 47-Pyp-775803:02 Request Lipid Panel (22110)Indication: Hypercholesteremia On: 20-Jov-80987:26 Request Hemoglobin Glyclated (HGB A1C) (02288)Indication: Proteinuria On: :41 Request Lipid Panel (32057)Indication: Hypercholesteremia On: :35 Request LIPID PANEL (11377)Indication: Hypercholesteremia On: 41-Rrq-399796:51 Request UPEP (91840)Indication: Proteinuria On: :56 Request SPEP (74367)Indication: Proteinuria On: :56 Request GONADOTROPIN-LH (39113)Indication: Irregular menstrual cycle On: :55 Request GONADOTROPIN-FSH (97927)Indication: Irregular menstrual cycle On: :54 Request HEPATIC FUNCTION PANEL (31595)Indication: Hypercholesteremia On: :49 Request Hemoglobin Glyclated (HGB A1C) (88180)Indication: Proteinuria On: :13 Request GONADOTROPIN-LH (99691)Indication: Unspecified Diagnosis On: :22 Request GONADOTROPIN-FSH (66274)Indication: Unspecified Diagnosis On: :22 Request HEPATIC FUNCTION PANEL (79733)Indication: Unspecified Diagnosis On: :22 Request TSH (70341)Indication: Hypertension On: :33 Request URINALYSIS, W/ MICRO (82869)Indication: Hypertension On: :33 Request MICROALBUMIN: CREATININE RATIO (17365) AND (48944)Indication: Hypertension On: :33 Request METABOLIC PANEL, COMPREHENSIVE (18599)Indication: Hypertension On: :33 Request LIPID PANEL (45746)Indication: Hypertension On: :33 Request CREATININE, URINE (35720)Indication: Hypertension On: :33 Request CBC WITH MANUAL DIFF (08427)Indication: Hypertension On: :33 Request TAMIA CULTURE-OTHER (41951)Indication: Cellulitis and abscess of other specified site On: :48 Request Comments: rt inner arm thin prep (36586) (std testing)Indication: Vaginitis and vulvovaginitis On: :17 Request NEISSERIA (57836) (THIN PREP OBTAINED)Indication: Vaginitis and vulvovaginitis On: :17 Request HUMAN PAPILVS, NUCLEIC ACID AMPL PROBE (63715)Indication: Vaginitis and vulvovaginitis On: :17 Request CHLAMYDIA (88883) (thin prep obtained)Indication: Vaginitis and vulvovaginitis On: :17 Request URINE TAMIA CULTURE (ABIGAIL COL COUNT) (69972)Indication: Dysuria On: 43-Dch-894177:14 Request LIPID PANEL (64781)Indication: Hypercholesteremia On: 8-Kao-423948:10 Request Comments: to be done in 6 months post life style changes. Thin prep Pap (65649)Indication: Well Female (V72.31) (II) On: :07 Request LIPID PANEL (39935)Indication: Screening for hyperlipidemia On: :32 Request PTT (ACTIVATED PARTIAL THROMBOPLASTIN TIME) (15762)Indication: Irregular menstrual cycle On: :28 Request PT (PROTHROMBIN TIME) (35080)Indication: Irregular menstrual cycle On: :28 Request PROLACTIN (32168)Indication: Irregular menstrual cycle On: 64-Wui-962011:28 Request METABOLIC PANEL, COMPREHENSIVE (34882)Indication: Irregular menstrual cycle On: 26-Hla-094744:28 Request TSH (50833)Indication: Irregular menstrual cycle On: :28 Request CBC (AUTO) (77246)Indication: Irregular menstrual cycle On: 53-Rve-417030:28 Request Planned Encounters Medical; 4 Month FU - On: 26-May-2018 11:15 [facility] Cher Sampson CNP, CNP, Mary E Planned Procedures DEXA SCAN AXIAL SKELETON (06613)By: On: 21-Oct-2017 Intent Cher Sampson CNP, CNP, Mary E SCREENING DIGITAL TOMOSYNTHESIS OF On: 05-Aug-2017 Intent BREAST (48198)By: Cher Sampson CNP, CNP, Mary E Aerosol Treatment (41514)By: Camilla On: 16-Jun-2017 Intent Cher ANNE Perlitamoiradamián ANNE Cher Henson Spirometry (95577)By: Camilla ANNE, On: 16-Jun-2017 Intent CynthiaSixto Sampson CNP Cynthia SCREENING DIGITAL TOMOSYNTHESIS OF On: 30-Jul-2016 Intent BREAST (11833)By: Wanda Cole DO Aerosol Treatment (23856)By: Camilla On: 09-Jul-2016 Intent DAYANA CynthiaSixto Sampson CNP Cher Henson Solu -Medrol Injection, 125 mg On: 09-Jul-2016 Intent (J2930)By: Camilla ANNE CynthiaSixto Sampson CNP Cher Henson Aerosol Treatment (55378)By: Jarrett On: 09-Jul-2016 Intent Florence SMITH MRI OF THORACIC SPINE WITHOUT On: 30-Nov-2015 Intent CONTRAST (59376)By: Camilla ANNE CynthiaSixto Sampson CNP Cynthia Radiology - Cervical SpineBy: Camilla On: 16-Nov-2015 Intent DAYANA CynthiaSixto Sampson CNP Cynthia PHYSICAL THERAPY EVALUATION On: 16-Nov-2015 Intent (91566)By: Cher Sampson CNP, CNP Cynthia EMG, DYNAMIC SURFACE, 1-12 MUSCLE On: 16-Nov-2015 Intent (98764)By: Cher Sampson CNP, CNP Cynthia MAMMOGRAM BREAST BILATERAL On: 06-Jul-2015 Intent SCREENING DIGITAL (31674)By: Cher Sampson CNP, CNP Cynthia TDAP VACCINE >7 IM (04324)By: Camilla On: 09-Oct-2014 Intent DAYANA CynthiaSixto Sampson CNP Cynthia Comments: boostrixlot [id number] 10.9.15L Dltd, IMPrefilled syringeMegan Long, LPNVIS signed Solu -Medrol Injection, 125 mg On: 15-May-2014 Intent (J2930)By: Cher Sampson CNP Comments: lot [id number] 7.24250 mgright gmIMas, DIE CASTING SUPERVISOR DAYANA Cynthia Solu -Medrol Injection, 125 mg On: 04-Feb-2013 Intent (J2930)By: Cher Sampson CNP Comments: Lot: [id number]: 07/2015Amt: 125mgRoute: IMSite: RUOQ GlutealGiven by: SARAH Montoya CNP, Mary E Radiology - ChestBy: Camilla ANNE, On: 04-Feb-2013 Intent Cher King CNP Comments: call wet read to Edwin Sampson at [facility] Internal Medicine Aerosol Treatment (45310)By: Camilla On: 04-Feb-2013 Intent Cher ANNE CNP, Mary E Eprescribed prescriptions On: 04-Feb-2013 Intent (G8553)By: Cher Sampson CNP, CNP, Mary E Aerosol Treatment (70990)By: Camilla On: 10-Jan-2013 Intent Cher ANNE CNP Cynthia Eprescribed prescriptions On: 10-Jan-2013 Intent (G8553)By: Tisha Salcedo BIOPSY OF SKIN LESION, SINGLE On: 30-Jun-2012 Intent (33149)By: Cher Sampson CNP Comments: area cleaned with betadine, small incision made, lipoma extracted in pieces, no bleeding, bandage applied Cher ANNE DRAIN SKIN ABSCESS, SIMPLE/SINGLE On: 30-Jun-2012 Intent (91355)By: Cher Sampson CNP, CNP, Cynthia Eprescribed prescriptions On: 28-Jun-2012 Intent (G8553)By: Maggie Jarvis LPN Spirometry (62021)By: Camilla ANNE, On: 22-Dec-2011 Intent Cher King CNP Eprescribed prescriptions On: 22-Dec-2011 Intent (G8553)By: Cher Sampson CNP, CNP, Mary E Aerosol Treatment (06551)By: Camilla On: 10-Nov-2011 Intent Cher ANNE CNP, Mary E ELECTROCARDIOGRAM, COMPLETE (ECG) On: 15-Jan-2011 Intent (93104)By: Cher Sampson CNP Comments: sinus rhythm borderline T abnormalities Cher ANNE Bio Z (97749)By: Cher Sampson CNP On: 15-Jan-2011 Intent Cher Sampson CNP Comments: elevated systemic Vascular Resistance Index HIGH COMP EYE EXAMINATION, ESTAB PATIENT On: 18-Dec-2010 Intent (17559)By: Cher Sampson CNP, CNP, Mary E PHYSICAL THERAPY EVALUATION On: 12-Oct-2009 Intent (15240)By: Cher Sampson CNP, CNP, Mary E Toradol Injection, 30 mg On: 12-Oct-2009 Intent (J1885)By: Cher Sampson CNP Comments: Lot #: [id number] date: mount given: 30 mg/mlRoute: IMSite given: [...] Kely IRBY Comments: give total 1 gramLot #[id number]/12Site-left anticubitalDose1 gmgiven by:CDHIV Therapy vejcupeop09F, 1 inchSite:left anticubital Tolerated: wellno redness or swelling, no s/s infiltration THER/PROPH/DIAG INJ, SC/IM On: 16-Aug-2009 Intent (83870)By: Camilla ANNE CynthiaSixto Sampson CNP Cynthia Vancoymcin 500mg/premixedBy: Ciesa On: 16-Aug-2009 Intent DAYANA CynthiaSixto Sampson CNP Cynthia Comments: 1 gramDay #3 THER/PROPH/DIAG INJ, SC/IM On: 15-Aug-2009 Intent (41976)By: Cher Sampson CNP, CNP, Mary E Vancoymcin 500mg/premixedBy: Ciesa On: 15-Aug-2009 Intent Cher ANNE CNP, Mary E Comments: Lot #[id number]/11Site-right anticubital given by:CDH Vancoymcin 500mg/premixedBy: Ciesa On: 15-Aug-2009 Intent DAYANA CynthiaSixto Sampson CNP Cynthia Comments: IV Therapy reused site from 08/14/09 22G, 1 inchSite: right anticubitalTolerated: wellno redness or swelling, no s/s infiltration DRAIN SKIN ABSCESS, SIMPLE/SINGLE On: 14-Aug-2009 Intent (86221)By: Cher Sampson CNP, CNP, Mary E Vancoymcin 500mg/premixedBy: Camilla On: 14-Aug-2009 Intent Cher ANNE CNP, Mary E THER/PROPH/DIAG INJ, SC/IM On: 13-Aug-2009 Intent (17918)By: Cher Sampson CNP, CNP, Mary E Rocephon Injection, 1 Gm On: 13-Aug-2009 Intent (J0696)By: Cher Sampson CNP, CNP, Mary E CT - AbdomenBy: Cher Sampson CNP On: 30-Jan-2009 Intent Cher Sampson CNP Radiology - Abdomen SeriesBy: Camilla On: 16-Jan-2009 Intent Cher ANNE CNP Cynthia Toradol Injection, 30 mg On: 09-Feb-2008 Intent (J1885)By: Cher Sampson CNP Comments: Amt: 30mgLot: [id number]: 12/2008Route: IMSite: right deltoid (per pt request)Tolerated: wellGiven By: SARAH Farrell CNP, Mary E Toradol Injection, 30 mg On: 22-Oct-2006 Intent (J1885)By: Wanda Cole DO Comments: Lot #:[id number] date: given:30mg/mlRoute: IMSite given:left deltoidGiven by: nidia smtih MAMMOGRAM, SCREENING, BOTH BREASTS On: 04-Mar-2006 Intent (54770)By: TOI HOPKINS CNP Ultrasound - PelvisBy: SANDEEP [...] : Patient Instructions Indication: Hypercholesteremia Vaccine for tbzafrlova-pndifwy-rygbehcos with poliomyelitis : How to access health information online Indication: Vaccine for wewrqfsttp-qvpbige-cewzdtryq with poliomyelitis Vaccine for plxzzuvnwh-qcqyquu-imjfxwaot with poliomyelitis : How to access health information online - Detail Indication: Vaccine for xhkgejsref-zumbchh-fpcopapji with poliomyelitis Vaccine for xzkydmvlus-cacngch-lpvdbfjcv with poliomyelitis : Patient Instructions Indication: Vaccine for uutqxrnpng-fyabqvq-dmdgvcjnw with poliomyelitis Hypercholesteremia : Patient Instructions Indication: [...] was stung last w End: 22-Oct-2006 16:16 [place] by a bee.). The course has been [...] Gerd (530.81) [facility] [employer] [place]; a guarantor
--- OUTSIDE RECORDS SUMMARY | 2018-05-25 02:29 | XMS RPT_ITS | Continuity of Care Document ---
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 Will refer to VIOLIN RESTORER if persists. Status: Inactive as of 17-Jul-2008 [...] Density Study Result: Comments: See Note; NOTES: [facility] Imaging Services [address] [place] [address] Dexa Bone Density Study MR#: [id number] Acct: [id number] Name: VONNIE GILBERT Rep #: [id number] : 1965 F 51 From: Pola García MD PCP: Cher Sampson NP Status: REG CLI Study: Dexa Bone Density Study Date of Exam: 10/29/17 Exam# [id number] Ordering Dr: Cher Sampson STUDY: DUAL ENERGY [...] Pola García MD at 15:46 EDT Tel [phone], Service support , CC: Cher Sampson NP Canceling And Cutting Control Clerk: Signed 20-Aug-2017 SCREENING MAMM (CAD), BILAT Result: Comments: See Note; NOTES: [facility] Imaging Services [address] [place] [address] SCREENING MAMM (CAD), BILAT MR#: [id number] Acct: [id number] Name: VONNIE GILBERT Rep # : [id number] : 1965 F 51 From: Pola García MD PCP: Cher Sampson NP Status: REG CLI Study: SCREENING MAMM (CAD), BILAT Date of Exam: 08/20/17 Exam# [id number] Ordering Dr: Cher Sampson [facility] MOGRAPHY - BILATERAL SCREENING REASON FOR EXAM: [...] delay biopsy of a clinically suspicious abnormality. [id number] Electronically Signed: Pola García MD at 12:57 EDT Tel [phone], Service support , CC: Cher Sampson NP Canceling And Cutting Control Clerk: Signed 20-Aug-2017 Downtime Report Result: Comments: See Note; NOTES: [facility] Medical Records Department [address] [place] [address] Downtime Report MR#: [id number] Acct: [id number] Name: VONNIE GILBERT Rep #: [id number] : 1965 51 From: Jesse Carrasco PCP: Cher Sampson NP Status: REG CLI This patient was seen during an EMR downtime August 03, 2017 - August 10, 2017. This patient may have a combination of paper and electronic documentation or all paper documentation. All documentation is viewable within the e-chart portion of [employer] for each patient visit. 19-Aug-2017 Downtime Report Result: Comments: See Note; NOTES: [facility] Medical Records Department [address] [place] [address] Downtime Report MR#: [id number] Acct: [id number] Name: VONNIE GILBERT Rep #: [id number] : 1965 51 From: Jesse Carrasco MD PCP: Cher Sampson NP Status: DEP ER This patient was seen during an EMR downtime August 03, 2017 - August 10, 2017. This patient may have a combination o f paper and electronic documentation or all paper documentation. All documentation is viewable within the e-chart portion of [employer] for each patient visit. 09-Apr-2017 Urgent Care Visit Report Result: Comments: See Note; NOTES: [facility] [address] [place] [address] [address] [place] [address] OFFICE VISIT Date of Service: 04/09/17 MR#: [id number] Acct: [id number] Name: VONNIE GILBERT Rep #: [id number] : 1965 Provider: Donnie SOTOMAYOR Age/Sex: 51/F Location[place] [facility] Status: Signed Intake Vital Signs04/09/17 Height 5 ft 9 in 04/09/17 Weight: 241 lb 04/09/17 Body Mass Index (B CT) 35.6 Intake Visit Reasons: ILL Relief Charge Nurse Required: No Is patient in pain?: No Allergies No Known Allergies Allergy (Verified 04/09/17 16:32) Medications Atorvastatin Calcium [Lipitor] 20 mg PO DAILY 05/11/13 [History Confirmed 04/09/17] Nebivolol HCl [Bystolic] 10 mg PO DAILY 05/11/13 [History Confirmed 04/09/17] Estradiol [Estrace] 2 mg PO DAILY 10/04/16 [History Confirmed 04/09/17] Dejesus xicam 7.5 mg PO DAILY 10/04/16 [History Confirmed 04/09/17] [facility] Medical History HTN (hypertension) (Chronic) Surgical History [...] Diagnoses URI (upper respiratory infection) J06.9 04/09/17 8389 <Electronically signed by Donnie SOTOMAYOR> Date Donnie Murrieta Signature: Date (if applicable) CC: 03-Apr-2017 Massage Therapy Evaluation Result: Comments: See Note; NOTES: [facility] 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 She was referred to the [facility] [...] CC: Cher Sampson NP LYUBOV Signed For [facility] care only, by signing this I certify the plan of care. Physicians Signature Date 16-Mar-2017 Urgent Care Visit Report Result: Comments: See Note; NOTES: [facility] [address] [place] [address] OFFICE VISIT Date of Service: 03/16/17 MR#: [id number] Acct: [id number] Name: VONNIE GILBERT Rep #: [id number] : 1965 Provider: Kris SOTOMAYOR Age/Sex: 51/F Location[place] [facility] Status: Signed Intake Vital Signs03/16/17 Height 5 [...] fatigue Exam Const General: cooperative, healthy appearing [facility] Head: normocephalic, atraumatic Ears: hearing grossly [...] the above. This note was generated with [employer] dictation software. It may contain incorrect words, spelling, and punctuation that were not noted in checking the note before signing. Orders Orders: Coding Level of Care Code Off vis,new,level 3 Diagnoses RUQ abdominal pain R10.11 03/16/17 1210 <Electronically signed by Kris SOTOMAYOR> Date Kris SOTOMAYOR Cosigner Signature: Date (if applicable) CC: 27-Feb-2017 Discharge Summary Result: Comments: See Note; NOTES: [facility] Medical Records Department [address] [facility] [place] [address] Discharge Summary 02/27/17 1309 MR#: [id number] Acct: [id number] Name: VONNIE GILBERT Rep #: [id number] : 1965 51 From: Yvrose Pickard PCP: [...] discharge this patient from our care at [facility]. Sincerely, Yvrose Pickard LMT 02/27/17 1315 <Electronically signed by Yvrose Pickard > Date Yvrose Pickard Cosigner Signature (if applicable): Date ____ CC: Cher Sampson CHIEF EXECUTIVE OFFICER; Yvrose Pickard Signed 04-Oct-2016 Emergency Department Summary Result: Comments: See Note; NOTES: [facility] Medical Records Department [address] [facility] [place] [address] Emergency Department Summary 10/04/16 2158 MR#: [id number] Acct: [id number] Name: VONNIE GILBERT Rep #: [id number] : 1965 50 From: Jaylen Khan MD [...] your Primary Care Provider. Call [facility] ([phone]) or report to the closest Emergen cy Room. Call 911 if necessary. 10/04/16 9011 <Electronically signed by Jaylen Khan MD> Date Jaylen Khan MD Cosigner Signatur e (If Indicated): Date CC: Cher Sampson 15-Aug-2016 SCREENING MAMM (CAD), BILAT Result: Comments: See Note; NOTES: [facility] Imaging Services [address] [place] [address] Verdana 4d SCREENING MAMM (CAD), BILAT MR#: [id number] Acct: [id number] Name: Gwen GILBERT Rep #: [id number] : 1965 F 50 From: Pola García MD PCP: Cher Sampson Status: REG CLI Study: SCREENING MAMM (CAD), BILAT Date of Exam: 08/15/16 Exam# [id number] Ordering Dr: Jonathan Sampson MAMMOGRAPHY - BILATERAL [...] delay biopsy of a clinically suspicious abnormality. [id number] Electronically Signed: Pola García MD at 10:21 EDT Tel [phone], Serv ice support , CC: Cher Sampson Canceling And Cutting Control Clerk: Signed 04-Mar-2016 PT Discharge Summary Result: Comments: See Note; NOTES: [facility] [address] [place] [address]. [address] [place] [address] Fax REHABILITATION SERVICES DISCHAR GE SUMMARY MR#: [id number] Acct: [id number] Name: VONNIE GILBERT Rep #: [id number] : 1965 50 From: Susu Malin Referring [...] the patient from our care at the [facility] facility. Susu Malin LMT T: REG JOB: [id number] &#60 ;Electronically signed by Susu Malin > 03/04/16 0643 CC: Cher Sampson Signed 28-Feb-2016 PT Discharge Summary Result: Comments: See Note; NOTES: [facility] Therapy [address] [place], [place] [address] Fax REHABILITATION SERVICES DISCHAR GE SUMMARY MR#: [id number] Acct: [id number] Name: VONNIE GILBERT Rep #: [id number] : 1965 50 From: Susu Malin Referring [...] the patient from our care at the [facility] facility. Susu Malin LMT T: REG JOB: [id number] &#60 ;Electronically signed by Susu Malin > 02/28/16 1658 CC: Cher Sampson Signed 29-Jan-2016 PT D/C of Non Returning Pt (1) Result: Comments: See Note; NOTES: [facility] [address] [place] [address] Fax REHABILITATION SERVICES DISCHAR GE SUMMARY MR#: [id number] Acct: [id number] Name: VONNIE GILBERT Rep #: [id number] : 1965 50 From: Noam Martinez PT, Cert. T, OCS Referring Dr.: Cher Sampson Status: REG RCR Insurance: [facility] [employer] [facility] HP - Discharge Summary (1) - Patient [...] Cervical (Routine) Result: Comments: See Note; NOTES: [facility] Imaging Services [address] [place] [address] Verdana 4d Spine Cervical (Routine) MR#: [id number] Acct: [id number] Name: NOHEMI GILBERT Rep #: [id number] : 1965 F 49 From: Kendal Cox DO PCP: Cher Sampson Status: REG CLI Study: Spine Cervical (Routine) Date of Exam: 12/07/15 Exam# [id number] Ordering Dr: Cher Sampson Y: MRI CERVICAL [...] at 1:40 EDT Tel , Service support [phone], CC: Cher Sampson Canceling And Cutting Control Clerk: Signed 19-Nov-2015 Inital Evaluation (1) - PT Result: Comments: See Note; NOTES: [facility] [address] [place] [address] Fax REHABILITATION SERVICES INITIA L EVALUATION MR#: [id number] Acct: [id number] Name: VONNIE GILBERT Rep #: [id number] : 1965 49 From: Noam Osman Referring Dr.: Cher Sampson Status: REG RCR Insurance: [facility] [employer] [facility] Patient's Visit Information VONNIE GILBERT is [...] to be FAXED BACK to us at [phone] for Medicare purposes. Please let me know if there are questions or concerns regarding this plan of care. Physician Si gnature: Date: <Electronically signed by Noam Osman > 11/19/15 1129 CC: Cher Sampson KARLEY Sign ed For Medicare only, by signing this I certify the plan of care. Physicians Signature Date 16-Nov-2015 Cerv Spine 4 or 5 Views Result: Comments: See Note; NOTES: [facility] Imaging Services [address] [place] [address] Verdana 4d Cerv Spine 4 or 5 Views MR#: [id number] Acct: [id number] Name: VONNIE GILBERT Rep #: [id number] : 1965 F 49 From: Pola García MD PCP: Cher Sampson Status: REG CLI Study: Cerv Spine 4 or 5 Views Date of Exam: 11/16/15 Exam# [id number] Ordering Dr: Cher Sampson: X-RAY - CERVICAL [...] Pola García MD at 14:54 EDT Tel [phone], Service support [phone], CC: Cher Sampson Canceling And Cutting Control Clerk: Signed 01-Aug-2015 Inital Evaluation - PT Result: Comments: See Note; NOTES: [facility] [address] [place] [address]. [address] [place], [place] [address] Fax REHABILITATION SE RVICES INITIAL EVALUATION MR#: [id number] Acct: [id number] Name: VONNIE GILBERT Cruz Rep #: [id number] : 1965 49 From: Susu Garcia Referring : Cher Sampson Status: REG RCR Insura nce: [facility] Eval Date: DATE OF SERVICE: 03/30/2015 REFERRING PHYSICIAN: Dr. 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 Sampson [...] sessions. Susu Garcia LMT T: REG JOB: [id number] <Electronically signed by Susu Garcia > 08/01/15 1909 CC: Signed For Medicare only, by signing this I certify the plan of care. Physicians Signature Date 20-Jul-2015 Bilat Scrn Digital AND CAD Result: Comments: See Note; NOTES: [facility] Imaging Services [address] [place] [address] Paulinofarhad 4d Bilat Scrn Digital AND CAD MR#: [id number] Acct: [id number] Name: VONNIE GILBERT Rep #: [id number] : 1965 F 49 From: Pola García MD PCP: Cher Sampson Status: REG CLI Study: Bilat Scrn Digital AND CAD Date of Exam: 07/20/15 Exam# [id number] Joellein g Dr: Cher Sampson MAMMOGRAPHY - [...] delay biopsy of a clinically suspicious abnormality. [id number] Electronic ally Signed: Pola García MD at 12:25 EDT Tel [phone], Service support [phone], CC: Cher Sampson Canceling And Cutting Control Clerk: Signed 05-Mar-2015 PT Discharge Summary Result: Comments: See Note; NOTES: [facility] [address] [place] [address]. [address] [place], [place] [address] Fax REHABILITATION SE RVICES DISCHARGE SUMMARY MR#: [id number] Acct: [id number] Name: VONNIE GILBERT Rep #: [id number] : 1965 49 From: Susu Garcia Referring [...] the patient from our care at the [facility] facility. Susu Garcia LMT T: NTS JOB: [id number] <Electronically signed by Susu Garcia & #62; 03/05/15 1201 CC: Cher Sampson Signed 24-Apr-2014 Inital Evaluation - PT Result: Comments: See Note; NOTES: [facility] [address] [place], [place] [address] Fax REHABILITATION SERVICES INITIAL EVALUATION MR#: [id number] Acct: [id number] Name: VONNIE GILBERT Rep #: [id number] : 1965 48 From: Susu Garcia Referring DrAshutosh: Cher Sampson Status: DIS RCR Insurance: [facility] [employer] SERVICES Eval Date: DATE OF SERVICE: 03/17/2014 REFERRING PHYSICIAN: Dr. Cher Sampson. 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 She was referred to the [facility] facility for massotherapy evaluation by Dr. [...] sessions. Susu Garcia LMT T: REG JOB: [id number] <Electronically signed by Susu Garcia > 04/24/14 1107 CC: Signed For Medicare only, by sign ing this I certify the plan of care. Physicians Signature Date 10-Mar-2014 PT Discharge Summary Result: Comments: See Note; NOTES: [facility] [address] [place] [address] Fax REHABILITATION SERVICES DISCHARGE SUMMARY MR#: [id number] Acct: [id number] Name: VONNIE GILBERT Rep #: [id number] : 1965 48 From: Susu Garcia Referring [...] the patient from our care at the [facility] facility. Susu Garcia LMT T: REG JOB: [id number] <Electronically signed by Susu Garcia > 03/10/14 1104 CC: Signed 16-Jun-2013 Inital Evaluation - PT Result: Comments: See Note; NOTES: [facility] [address] [place] [id number] Fax REHABILITATION SERVICES INITIAL EVALUATION MR#: [id number] Acct: [id number] Name: VONNIE GILBERT Rep #: [id number] : 1965 47 From: Susu Garcia Referring Dr.: Cher Sampson Status: DIS RCR Insurance: [facility] Eval Date: DATE OF SERVICE: 05/25/2013 REFERRING PHYSICIAN: Dr. Cher Sampson. 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 Physicians Signature Date 19-Feb-2013 PT Discharge Summary Result: Comments: See Note; NOTES: [facility] [address] [place] [address] Fax REHABILITATION SERVICES DISCHARGE SUMMARY MR#: [id number] Acct: [id number] Name: MARTINVONNIE Arroyo Rep #: [id number] : 1965 47 From: Susu Garcia Referring [...] the patient from our care at the [facility]. Susu Garcia LMT T: NTS JOB: [id number] &amp ;#60;Electronically signed by Susu Garcia > 02/19/13 1043 CC: * Signed 04-Feb-2013 Chest PA and Lateral Result: Comments: See Note; NOTES: [facility] Imaging Services [address] [place] [address] Radiology Report MR#: [id number] Acct: [id number] Name: VONNIE GILBERT Rep #: [id number] : 1965 F 47 From: Pola García MD PCP: [facility] Study: Chest PA and Lateral Date of Exam: 02/04/13 Exam# [id number] Ordering Dr: Cher Sampson STUDY: X-RAY CHEST [...] M.D. 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 [place], [place], [address] VLDL 62 mg/dL (Abnormal) Range: 5-40 LDL [...] 200-240 mg/dL Borderline >240 mg/dL High Risk 96-Doj-592006:25 Uric Acid Comments: [facility] [address] [place], [place], [address] URIC 5.8 mg/dL (Normal) Range: 2.6-6.0 Comments: The drugs N-Acetylcysteine and Metamizole may falselydepress this assay. 5-Epb-662185:05 CBC, Employee Comments: [facility] [address] [place], [place], [address] Absolute Lymph 2.40 {X10_3/ul} (Normal) Range: 0.83-4.51 [...] 4.2-5.4 WBC 7.4 K/mm3 (Normal) Range: 4.4-11.0 8-Jzv-843067:05 Employee Profile Comments: [facility] [address] [place], [place], [address] LDH 167 U/L (Normal) Range: 84-246 VLDL [...] Comments: Please note revised GLUCOSE reference range exvoihpel48/02/2018. 5-Qmv-278668:05 Nicotine Urine Drug Screen Comments: [facility] [address] [place], [address] COT DRG SCREEN Negative (Normal) Comments: Cotinine [...] result, particularly whenpreliminary positive results are used. 9-Nes-653007:05 Urinalysis, Employee Comments: [facility] [address] [place], [place], [address] LEUK ESTERASE Negative /ul (Normal) OCCULT BLOOD-UR Negative /ul (Normal) NITRITE UR Negative (Normal) UROBILI Normal mg/dL (Normal) PROT DIPSTX Negative mg/dL (Normal) pH UR 5.0 (Normal) Range: 5.0 - 8.0 SP.GR. DIPSTX 1.020 (Normal) Range: 1.002-1.030 KETONE UR Negative mg/dL (Normal) BILIRUBIN URINE Negative mg/dL (Normal) GLUCOSE, UR Normal mg/dL (Normal) CLARITY Clear (Normal) COLOR Yellow (Normal) 07-Xqt-668984:27 CBC W/Diff, Automated Comments: [facility] [address] [place], [place], [address] Absolute Lymph 2.41 {X10_3/ul} (Normal) Range: 0.83-4.51 [...] 4.2-5.4 WBC 9.1 K/mm3 (Normal) Range: 4.4-11.0 64-Hbu-826110:27 Comprehensive Metabolic Profil Comments: [facility] [address] [place], [address] GAP 9 (Normal) Range: 5-15 CO2 24.0 [...] 7-18 GLU 84 mg/dL (Normal) Range: 70-110 6-Gkq-693981:55 CBC, Employee Comments: [facility] [address] [place], [place], [address] Absolute Lymph 2.01 {X10_3/ul} (Normal) Range: 0.83-4.51 [...] 4.2-5.4 WBC 7.2 K/mm3 (Normal) Range: 4.4-11.0 2-Fep-837275:55 Employee Profile Comments: [facility] [address] [place], [place], [address] LDH 178 U/L (Normal) Range: 84-246 VLDL [...] 7-18 GLU 81 mg/dL (Normal) Range: 70-110 0-Ooi-657478:55 Nicotine Urine Drug Screen Comments: [facility] [address] [place], [place], [address] COT DRG SCREEN Negative (Normal) Comments: Cotinine [...] result, particularly whenpreliminary positive results are used. 9-Taw-498550:55 Urinalysis, Employee Comments: [address] [place], [address] LEUK ESTERASE Negative /ul (Normal) [...] (Normal) 03-Jul-20169:40 Culture, R/O Strep A Comments: [address] [place], [address] CUSTREPA See Note (Normal) Comments: [...] culture is required. :56 CBC, Employee Comments: [facility] [address] [place], [place], [address] Absolute Lymph 2.21 {X10_3/ul} (Normal) Range: 0.83-4.51 [...] (Normal) Range: 4.4-11.0 :56 Employee Profile Comments: [facility] [address] [place], [place], [address] LDH 190 U/L (Normal) Range: 84-246 VLDL [...] 70-110 :56 Nicotine Urine Drug Screen Comments: [facility] [address] [facility] [place], [place], [address] COT DRG SCREEN Negative (Normal) Comments: Cotinine [...] Urinalysis, Employee Comments: How was Urine Obtained? [facility] [address] [facility] [place], [place], [address] LEUK ESTERASE 25 /ul (Abnormal) OCCULT BLOOD-UR Negative /ul (Normal) NITRITE UR Negative (Normal) UROBILI Normal mg/dL (Normal) PROT DIPSTX 15 mg/dL (Abnormal) pH UR 5.0 (Normal) Range: 5.0 - 8.0 SP.GR. DIPSTX 1.020 (Normal) Range: 1.002-1.030 KETONE UR Negative mg/dL (Normal) BILIRUBIN URINE Negative mg/dL (Normal) GLUCOSE, UR Normal mg/dL (Normal) CLARITY Clear (Normal) COLOR Yellow (Normal) :53 Lipid Profile Comments: [facility] [address] [facility] [place], [address] VLDL 40 mg/dL (Normal) Range: [...] Risk :04 CBC, Employee Comments: Test performed at:[facility] [address] [place] [address] Absolute Lymph 2.04 {X10_3/ul} (Normal) [...] 4.2-5.4 WBC 5.4 K/mm3 (Normal) Range: 4.4-11.0 59-Lsv-002547:04 Employee Profile Comments: Test performed at:[facility] [address] [place] [address] LDH 190 U/L (Normal) Range: 84-246 VLDL [...] Comments: Please note revised CREATININE reference range xsoaeobva92/22/2015. BUN 17 mg/dL (Normal) Range: 7-18 GLU 89 mg/dL (Normal) Range: 70-110 48-Vwg-656523:04 Urinalysis, Employee Comments: Test performed at:[facility] [address] [place] [address] LEUK ESTERASE Negative /ul (Normal) OCCULT BLOOD-UR Negative /ul (Normal) NITRITE UR Negative (Normal) UROBILI Normal mg/dL (Normal) PROT DIPSTX Negative mg/dL (Normal) pH UR 6.0 (Normal) Range: 5.0 - 8.0 SP.GR. DIPSTX 1.015 (Normal) Range: 1.002-1.030 KETONE UR Negative mg/dL (Normal) BILIRUBIN URINE Negative mg/dL (Normal) GLUCOSE, UR Normal mg/dL (Normal) CLARITY Sl. Cloudy (Normal) COLOR Yellow (Normal) 71-Ssa-434117:45 CBCEM ALC 1.82 {X10_3/ul} (Normal) Range: 0.83-4.51 [...] 4.2-5.4 WBC 5.9 K/mm3 (Normal) Range: 4.4-11.0 30-Tfo-014110:45 EMP Comments: [facility] EMPLOYEE ANNUAL [facility] SVCATTN MICHAEL BUSBY....NO NOT MAIL LDH [...] CHOL 201 mg/dL (Abnormal) Comments: <200 mg/dL Hmhorfnhj379-050 mg/dL Borderline>240 mg/dL High Risk BID 0.14 [...] 7-18 GLU 103 mg/dL (Normal) Range: 70-110 58-Ume-805381:45 UAEM DAMIÁN Negative /ul (Normal) UOB Negative /ul (Normal) SYLVIA Negative (Normal) UROBU Normal mg/dL (Normal) uPROTU Negative mg/dL (Normal) ELISE 5.0 (Normal) Range: 5.0 - 8.0 SGU 1.020 (Normal) Range: 1.002-1.030 KETU Negative mg/dL (Normal) BILIU Negative mg/dL (Normal) GLUR Normal mg/dL (Normal) UCLAR Sl. Cloudy (Normal) UCOL Yellow (Normal) 7-Zac-858412:12 DDIMQ 0.30 {FEUug/mL} (Normal) Range: 0.22-0.48 Comments: NORMAL D-Dimer level indicates no DVT or PE. 6-Ckj-465562:23 Pathology Report Comments: PERFORMED BY: [facility] [place] [id number] [facility] [id number]: [id number] See MATER Comments: Material submitted: .EXCISION RIGHT [...] as received in cassette A./LMSLMS/LMSPathologist provided ICD-9:214.9CPT .207299 31-Scu-638587:23 LIPID VLDL 30 mg/dL (Normal) Range: 5-40 [...] Very High > or = 500 mg/dL 11-Opw-991405:23 LIVER BID 0.08 mg/dL (Normal) Range: 0.00-0.30 BIT 0.50 mg/dL (Normal) Range: 0.00-1.00 ALK 86 U/L (Normal) Range: 50-136 ALT 30 U/L (Normal) Range: 12-78 ALB 4.1 g/dL (Normal) Range: 3.4-5.0 AST 17 U/L (Normal) Range: 15-37 TPROT 7.2 g/dL (Normal) Range: 6.4-8.2 00-Idi-068811:06 LIPID VLDL 41 mg/dL (Abnormal) Range: 5-40 [...] 25.8 - 134.8Performed at: CB - [facility] [address] [place], [place] [id number] Director: Mary Mccallum MD, Phone: [phone] :[phone] LIVER Comments: appt 02/11/11 D BILI [...] - 11.4 Postmenopausal 7.7 - 58.5 :22 PROT.[id number] M-SPIKE,U SeeNote % (Normal) Comments: Result: Not Observed NOTE Comment (Normal) Comments: Protein electrophoresis scan will follow via computer,mail, or inside sales assistant delivery. GAMMA GLOB,U 11.4 % (Normal) IELCA-6-NEGG,U 9.0 % (Normal) BETA GLOB,U 24.2 % (Normal) AMTYG-2-XMFT,U 1.7 % (Normal) ALBUMIN,UR 53.7 % (Normal) PROTEIN,UR 24.6 mg/dL (Abnormal) Range: 0.0-15.0 :22 SPE [id number] INTERPRETATION Comment (Normal) Comments: The SPE pattern appears essentially unremarkable. Evidenceof monoclonal protein is not apparent.Protein electrophoresis scan will follow via computer,mail, or inside sales assistant delivery. A/G RATIO 1.3 (Normal) Range: 0.7-2.0 [...] 200-240 mg/dL Borderline >240 mg/dL High Risk 68-Epm-974416:03 MICROALB:CRE UR MALB:CREAT 41.3 {mg/g_CRE} (Abnormal) MICROALBUMIN,UR 66.0 mg/L (Normal) UR CREAT 159.7 mg/dL (Normal) :03 TSH 1.16 {uIU/mL} (Normal) Range: 0.358-3.74 58-Ypv-630200:57 CERV SPINE,MIN 4 VIEWS Radiology Report See Note (Normal) Comments: Exam Number: [id number] CLINICAL:43-year-old female with neck pain. X-RAY EXAMINATION: [...] Report See Note (Normal) Comments: Exam Number: [id number] MYOCARDIAL PERFUSION SCAN 11.3 mCi of Tc99m [...] fraction. Reported By: ANNA MARIE PANTOJA M.D. 57-Qbt-857210:42 CBCD,SMEAR DIFF RED CELL MORPH SeeNote {NORMAL} [...] 4.2-5.4 WBC 6.8 K/mm3 (Normal) Range: 4.4-11.0 28-Wtj-732506:42 RENAL CL 103 mmol/L (Normal) Range: 98-107 [...] 2.5-4.9 GLU 102 mg/dL (Normal) Range: 70-110 85-Yiq-520361:26 Aerobic Bacterial Culture Comments: PATIENT NOT FASTINGPERFORMED BY: [facility] [id number] Information: SRC: RIGHT ARM Antimicrobial MIHEAD (Normal) [...] oxacillin predictssusceptibility or resistance to (a) other apjq-syattokmn-flbtlryrwfgfxlrwx such as cloxacillin and dicloxacillin, (b) co (Normal) mbinationsof a penicillin and a beta-lactamase inhibitor, and(c) anti- staphylococcal cephalosporins. Routine testing of otherpenicillins, beta-lactam/beta-lactamase inhibitor combinations,cephems, and c arbapenems is not advised by the CLSI Standards(G756-X25, 2005). Aerobic Bacterial Final report (Normal) Culture 7-Qmr-078354:45 SED RATE ERYTHROCYTE ([id number]) Comments: PATIENT NOT FASTINGPERFORMED BY: [facility] Xuucdj2701 [facility] [id number] Sedimentation Rate-Westergren 2 mm/h (Normal) Range: 0-20 :45 CBC with manual diff (92527) Comments: PATIENT NOT FASTINGClinical Information: [id number] PERFORMED BY: [facility] Wyvcrx4505 [facility] [id number] Baso (Absolute) 0.0 {x10E3/uL} (Normal) Range: 0.0-0.2 [...] FUNCTION PANEL Comments: PATIENT NOT FASTINGPERFORMED BY: [facility] HospitalXlxjtz7305 [facility] [id number] ([id number]) Bilirubin, Direct 0.14 mg/dL (Normal) Range: 0.00-0.40 2-Dgk-998595:45 Metabolic Panel, Comprehensive Comments: PATIENT NOT FASTINGPERFORMED BY: [facility] Mrurhf1796 [facility] [id number] ([id number]) A/G Ratio 2.0 (Normal) Range: 1.1-2.5 Albumin, [...] Sodium, Serum 139 mmol/L (Normal) Range: 135-145 1-Dxu-049063:03 Urinalysis, Office (21864) UA - BLOOD Negative (Normal) UA - LEUKOCYTE ESTERASE Negative (Normal) UA - NITRITE Negative (Normal) UA - PH 6.0 (Normal) UA - PROTEIN Negative mg/dL (Normal) URINE UROBILINGN ABIGAIL TIMED Normal mg/dL (Normal) UA - BILIRUBIN Negative (Normal) UA - GLUCOSE Negative (Normal) UA - KETONES Negative mg/dL (Normal) UA - SPECIFIC GRAVITY 1.025 (Normal) 5-Hxj-306238:47 ABDOMEN WITH IV CONTRAST Radiology Report See Note (Normal) Comments: Exam Number: [id number] HISTORYRight side abdominal pain. CT ABDOMEN WITH [...] likely represent cysts. Reported By: Minor Boateng 24-Tup-192441:21 ACUTE ABDOMEN, INC CHEST (MT) Radiology Report See Note (Normal) Comments: Exam Number: [id number] CLINICAL:Right upper quadrant pain. X-RAY EXAMINATION: CHEST [...] upper quadrant. Reported By: MICHAELA MARK M.D. 24-Mge-916187:15 CBC with manual diff (68149) Comments: PATIENT NOT FASTINGClinical Information: [id number] PERFORMED BY: [employer] [id number] Baso (Absolute) 0.0 {x10E3/uL} (Normal) Range: 0.0-0.2 [...] 11.7-15.0 WBC 6.0 {x10E3/uL} (Normal) Range: 4.0-10.5 43-Zjg-715734:15 Metabolic Panel, Comprehensive Comments: PATIENT NOT FASTINGPERFORMED BY: [facility] HospitalTzewed0362 [facility] [id number] (02568) A/G Ratio 1.8 (Normal) Range: 1.1-2.5 Albumin, [...] Sodium, Serum 139 mmol/L (Normal) Range: 135-145 34-Bip-866788:15 HEPATIC FUNCTION PANEL Comments: PATIENT NOT FASTINGPERFORMED BY: [facility] Hnmvtx4083 [facility] [id number] (90021) Bilirubin, Direct 0.11 mg/dL (Normal) Range: 0.00-0.40 9-Rko-889783:34 CBC, EMPLOYEE HCT 42.3 % (Normal) Range: 37-47 HGB 14.6 g/dL (Normal) Range: 12.0-16.0 MCH 30.1 pg (Normal) Range: 27.0-32.0 MCHC 34.6 g/dL (Normal) Range: 32-36 MCV 87.1 fL (Normal) Range: 81-99 MPV 8.1 fL (Normal) Range: 6.5-12.0 PLT 349 K/mm3 (Normal) Range: 150-450 RBC 4.86 {M/mm3} (Normal) Range: 4.2-5.4 RDW 12.6 % (Normal) Range: 11.6-14.6 WBC 5.5 K/mm3 (Normal) Range: 4.4-11.0 2-Pri-311459:34 EMP PROF A/G 1.2 {RATIO} (Normal) Range: [...] for patient's is the eGFRmultiplied by 1.212. [facility] Laboratory uses the abbreviated Modification of Diet [...] Disease W/O Kidney Disease>/= 90 Stage One Jhzcdm89 - 89 Stage Two Suspect Decreased GFR30 [...] 2.6-6.0 VLDL 14 mg/dL (Normal) Range: 5-40 3-Vpl-113407:34 EMP URINALYSIS BILIRUBIN URINE SeeNote (Normal) Comments: [...] 0.2 EU/dl (Normal) Range: 0.2 - 1.0 38-Abc-009636:52 Pap Lb, Ct-Ng, Comments: Source.............Cervical;EndocervicalNo. of containers..01 CYTYC Thin Prep VialPERFORMED BY: =G [facility] [place] [address] [place] [id number] HPV-hr . . (Normal) Chlamydia, Nuc. Acid Amp Negative (Normal) DIAGNOSIS: SPRCS (Normal) Comments: NEGATIVE FOR INTRAEPITHELIAL LESION AND MALIGNANCY.Satisfactory for evaluation. Endocervical and/or squamous metaplasticcells (endocervical component) are present.616.10 ; Unspecified vagin itis and vul vovaginitisNatalie A Nataliya, Certified Professional Midwife Gonococcus, Nuc. Acid Amp Negative (Normal) Note: PAPSMR (Normal) Comments: The Pap smear is a screening test designed to aid in the detection ofpremalignant and malignant conditions of the uterine cervix. It is not adiagnostic procedure and should not be used as the sole mean s of detectingcervical cancer. Both false-positive and false-negative reports do occur. . 41-Oqi-157055:37 Urinalysis, Office (35304) UA - LEUKOCYTE ESTERASE Negative (Normal) Comments: aw UA - BILIRUBIN Negative (Normal) UA - BLOOD Negative (Normal) UA - GLUCOSE Negative (Normal) UA - KETONES Negative mg/dL (Normal) UA - NITRITE Negative (Normal) UA - PH 5.0 (Normal) UA - PROTEIN Negative mg/dL (Normal) UA - SPECIFIC GRAVITY 1.020 (Normal) URINE UROBILINGN ABIGAIL TIMED Normal mg/dL (Normal) 07-Zhw-69521:51 CBC, EMPLOYEE HCT 38.2 % (Normal) Range: [...] Range: 0.2 - 1.0 COLOR YELLOW (Normal) 52-Vbb-926936:15 Urinalysis, Office (18769) UA - BILIRUBIN Large (Normal) UA - BLOOD Non Hemolyzed Trace (Normal) UA - GLUCOSE Negative (Normal) UA - KETONES Negative mg/dL (Normal) UA - LEUKOCYTE ESTERASE Trace (Normal) Comments: aw UA - NITRITE Negative (Normal) UA - PH 5.0 (Normal) UA - PROTEIN Negative mg/dL (Normal) UA - SPECIFIC GRAVITY 1.020 (Normal) URINE UROBILINGN ABIGAIL TIMED Normal mg/dL (Normal) 90-Agb-675512:15 CULTURE, URINE URINE CULTURE See Note {CFU/mL} [...] - 208.5 Postmenopausal 1.8 - 20.3Performed At: [facility] [place], [place] [id number] :52 PTT 30.5 s (Normal) Range: 24.6-36.6 [...] symptoms worsen Indication: Motion sickness Vaccine for bpvnyendgz-axuqokw-giezmqqih with poliomyelitis : Eprescribed prescriptions (G8553) Indication: Vaccine for sppjuneeyj-pcwxthh-bnktdiyzq with poliomyelitis Cough : Follow up if [...] : FOLLOW UP IN 2 WEEKS with [facility] Indication: Cervical strain Cervical strain : exercises [...] specified site : FOLLOW UP TOMORROW with [facility] for IV vancomycin Day #3 Indication: Cellulitis and abscess of other specified site Insect bite, nonvenomous of shoulder and upper arm, infected : FOLLOW UP TOMORROW for IV vanco over 1 hr with [facility] Indication: Insect bite, nonvenomous of shoulder and upper arm, infected Cellulitis and abscess of other specified site : I/D Cyst/Abscess Indication: Cellulitis and abscess of other specified site Candidiasis, mouth : FOLLOW UP TOMORROW with [facility] Indication: Candidiasis, mouth Hypercholesteremia : Cholesterol - [...] (gastroesophageal reflux disease) Planned Observations LIPID PANEL (10404)Indication: Hypertriglyceridemia On: 55-Rwd-912627:01 Request URIC ACID BLOOD (23066)Indication: Elevated uric acid in blood On: 1-Ofr-688116:41 Request Lipid Panel (06959)Indication: Hypertriglyceridemia, sporadic On: 0-Uqy-352672:40 Request Comments: fasting Lipid Panel (75618)Indication: Hypercholesteremia On: 55-Tiw-448253:20 Request Comments: [facility] DDimer (95022)Indication: Cough On: 4-Eux-538073:12 Request Lipid Panel (56595)Indication: Hypercholesteremia On: 68-Uqr-407956:08 Request Comments: fasting HEPATIC FUNCTION PANEL (19295)Indication: Hypercholesteremia On: 68-Ihz-001219:02 Request Lipid Panel (35106)Indication: Hypercholesteremia On: 68-Stn-00678:26 Request Hemoglobin Glyclated (HGB A1C) (53038)Indication: Proteinuria On: :41 Request Lipid Panel (13861)Indication: Hypercholesteremia On: :35 Request LIPID PANEL (69165)Indication: Hypercholesteremia On: 93-Txc-670248:51 Request UPEP (19360)Indication: Proteinuria On: :56 Request SPEP (65824)Indication: Proteinuria On: :56 Request GONADOTROPIN-LH (01915)Indication: Irregular menstrual cycle On: :55 Request GONADOTROPIN-FSH (03546)Indication: Irregular menstrual cycle On: :54 Request HEPATIC FUNCTION PANEL (50930)Indication: Hypercholesteremia On: :49 Request Hemoglobin Glyclated (HGB A1C) (75575)Indication: Proteinuria On: :13 Request GONADOTROPIN-LH (15383)Indication: Unspecified Diagnosis On: :22 Request GONADOTROPIN-FSH (58824)Indication: Unspecified Diagnosis On: :22 Request HEPATIC FUNCTION PANEL (62276)Indication: Unspecified Diagnosis On: :22 Request TSH (37905)Indication: Hypertension On: :33 Request URINALYSIS, W/ MICRO (26764)Indication: Hypertension On: :33 Request MICROALBUMIN: CREATININE RATIO (08740) AND (90136)Indication: Hypertension On: :33 Request METABOLIC PANEL, COMPREHENSIVE (34470)Indication: Hypertension On: :33 Request LIPID PANEL (27962)Indication: Hypertension On: :33 Request CREATININE, URINE (29105)Indication: Hypertension On: :33 Request CBC WITH MANUAL DIFF (85256)Indication: Hypertension On: :33 Request TAMIA CULTURE-OTHER (26079)Indication: Cellulitis and abscess of other specified site On: :48 Request Comments: rt inner arm thin prep (63962) (std testing)Indication: Vaginitis and vulvovaginitis On: :17 Request NEISSERIA (33156) (THIN PREP OBTAINED)Indication: Vaginitis and vulvovaginitis On: :17 Request HUMAN PAPILVS, NUCLEIC ACID AMPL PROBE (14427)Indication: Vaginitis and vulvovaginitis On: :17 Request CHLAMYDIA (32287) (thin prep obtained)Indication: Vaginitis and vulvovaginitis On: :17 Request URINE TAMIA CULTURE (ABIGAIL COL COUNT) (13084)Indication: Dysuria On: 42-Oiw-853658:14 Request LIPID PANEL (18009)Indication: Hypercholesteremia On: 2-Omq-804331:10 Request Comments: to be done in 6 months post life style changes. Thin prep Pap (42180)Indication: Well Female (V72.31) (II) On: :07 Request LIPID PANEL (39150)Indication: Screening for hyperlipidemia On: :32 Request PTT (ACTIVATED PARTIAL THROMBOPLASTIN TIME) (20309)Indication: Irregular menstrual cycle On: :28 Request PT (PROTHROMBIN TIME) (23058)Indication: Irregular menstrual cycle On: :28 Request PROLACTIN (86807)Indication: Irregular menstrual cycle On: 80-Uzy-042649:28 Request METABOLIC PANEL, COMPREHENSIVE (94257)Indication: Irregular menstrual cycle On: 85-Old-152332:28 Request TSH (11697)Indication: Irregular menstrual cycle On: :28 Request CBC (AUTO) (37417)Indication: Irregular menstrual cycle On: 02-Zow-391733:28 Request Planned Encounters Medical; 4 Month FU - On: 26-May-2018 11:15 [facility] Cher Sampson CNP, CNP, Mary E Planned Procedures DEXA SCAN AXIAL SKELETON (53625)By: On: 21-Oct-2017 Intent Cher Sampson CNP, CNP, Mary E SCREENING DIGITAL TOMOSYNTHESIS OF On: 05-Aug-2017 Intent BREAST (57562)By: Cher Sampson CNP, CNP, Mary E Aerosol Treatment (31563)By: Camilla On: 16-Jun-2017 Intent Cher ANNE Perlitamoiradamián ANNE Cher Henson Spirometry (28834)By: Camilla ANNE, On: 16-Jun-2017 Intent CynthiaSixto Sampson CNP Cynthia SCREENING DIGITAL TOMOSYNTHESIS OF On: 30-Jul-2016 Intent BREAST (41630)By: Wanda Cole DO Aerosol Treatment (03569)By: Camilla On: 09-Jul-2016 Intent DAYANA CynthiaSixto Sampson CNP Cher Henson Solu -Medrol Injection, 125 mg On: 09-Jul-2016 Intent (J2930)By: Camilla ANNE CynthiaSixto Sampson CNP Cher Henson Aerosol Treatment (23706)By: Jarrett On: 09-Jul-2016 Intent [place] SMITH MRI OF THORACIC SPINE WITHOUT On: 30-Nov-2015 Intent CONTRAST (29836)By: Camilla ANNE CynthiaSixto Sampson CNP Cynthia Radiology - Cervical SpineBy: Camilla On: 16-Nov-2015 Intent DAYANA CynthiaSixto Sampson CNP Cynthia PHYSICAL THERAPY EVALUATION On: 16-Nov-2015 Intent (59522)By: Cher Sampson CNP, CNP Cynthia EMG, DYNAMIC SURFACE, 1-12 MUSCLE On: 16-Nov-2015 Intent (82615)By: Cher Sampson CNP, CNP Cynthia MAMMOGRAM BREAST BILATERAL On: 06-Jul-2015 Intent SCREENING DIGITAL (79788)By: Cher Sampson CNP, CNP Cynthia TDAP VACCINE >7 IM (86592)By: Camilla On: 09-Oct-2014 Intent DAYANA CynthiaSixto Sapmson CNP Cynthia Comments: boostrixlot [id number] 10.9.15L Dltd, IMPrefilled syringeMegan Long, LPNVIS signed Solu -Medrol Injection, 125 mg On: 15-May-2014 Intent (J2930)By: Cher Sampson CNP Comments: lot [id number] mgright gmIMas, D[employer]CHER DAYANA Cynthia Solu -Medrol Injection, 125 mg On: 04-Feb-2013 Intent (J2930)By: Cher Sampson CNP Comments: Lot: [id number]: 07/2015Amt: 125mgRoute: IMSite: RUOQ GlutealGiven by: SARAH Montoya CNP, Mary E Radiology - ChestBy: Camilla ANNE, On: 04-Feb-2013 Intent Cher King CNP Comments: call wet read to Edwin Sampson at [facility] Aerosol Treatment (15928)By: Camilla On: 04-Feb-2013 Intent Cher ANNE CNP, Mary E Eprescribed prescriptions On: 04-Feb-2013 Intent (G8553)By: Cher Sampson CNP, CNP, Mary E Aerosol Treatment (88965)By: Camilla On: 10-Jan-2013 Intent Cher ANNE CNP Cynthia Eprescribed prescriptions On: 10-Jan-2013 Intent (G8553)By: Tisha Salcedo BIOPSY OF SKIN LESION, SINGLE On: 30-Jun-2012 Intent (67288)By: Cher Sampson CNP Comments: area cleaned with betadine, small incision made, lipoma extracted in pieces, no bleeding, bandage applied Cher ANNE DRAIN SKIN ABSCESS, SIMPLE/SINGLE On: 30-Jun-2012 Intent (65161)By: Cher Sampson CNP, CNP, Cynthia Eprescribed prescriptions On: 28-Jun-2012 Intent (G8553)By: Maggie Jarvis LPN Spirometry (84518)By: Camilla ANNE, On: 22-Dec-2011 Intent Cher King CNP Eprescribed prescriptions On: 22-Dec-2011 Intent (G8553)By: Cher Sampson CNP, CNP, Mary E Aerosol Treatment (44201)By: Camilla On: 10-Nov-2011 Intent Cher ANNE CNP, Mary E ELECTROCARDIOGRAM, COMPLETE (ECG) On: 15-Jan-2011 Intent (14054)By: Cher Sampson CNP Comments: sinus rhythm borderline T abnormalities Cher ANNE Bio Z (77165)By: Cher Sampson CNP On: 15-Jan-2011 Intent Cher Sampson CNP Comments: elevated systemic Vascular Resistance Index HIGH COMP EYE EXAMINATION, ESTAB PATIENT On: 18-Dec-2010 Intent (65116)By: Cher Sampson CNP, CNP, Mary E PHYSICAL THERAPY EVALUATION On: 12-Oct-2009 Intent (12483)By: Cher Sampson CNP, CNP, Mary E Toradol Injection, 30 mg On: 12-Oct-2009 Intent (J1885)By: Cher Sampson CNP Comments: Lot #: [id number] date: mount given: 30 mg/mlRoute: IMSite given: [...] Kely IRBY Comments: give total 1 gramLot #[id number]-1/12Site-left anticubitalDose1 gmgiven by:CDHIV Therapy cxyqdemmp35J, 1 inchSite:left anticubital Tolerated: wellno redness or swelling, no s/s infiltration THER/PROPH/DIAG INJ, SC/IM On: 16-Aug-2009 Intent (92909)By: Camilla ANNE CynthiaSixto Sampson CNP Cynthia Vancoymcin 500mg/premixedBy: Ciesa On: 16-Aug-2009 Intent DAYANA CynthiaSixto Sampson CNP Cynthia Comments: 1 gramDay #3 THER/PROPH/DIAG INJ, SC/IM On: 15-Aug-2009 Intent (17550)By: Cher Sampson CNP, CNP, Mary E Vancoymcin 500mg/premixedBy: Ciesa On: 15-Aug-2009 Intent Cher ANNE CNP, Mary E Comments: Lot #[id number]-34/11Site-right anticubital given by:CDH Vancoymcin 500mg/premixedBy: Ciesa On: 15-Aug-2009 Intent DAYANA CynthiaSixto Sampson CNP Cynthia Comments: IV Therapy reused site from 08/14/09 22G, 1 inchSite: right anticubitalTolerated: wellno redness or swelling, no s/s infiltration DRAIN SKIN ABSCESS, SIMPLE/SINGLE On: 14-Aug-2009 Intent (96784)By: Cher Sampson CNP, CNP, Mary E Vancoymcin 500mg/premixedBy: Camilla On: 14-Aug-2009 Intent Cher ANNE CNP, Mary E THER/PROPH/DIAG INJ, SC/IM On: 13-Aug-2009 Intent (58868)By: Cher Sampson CNP, CNP, Mary E Rocephon Injection, 1 Gm On: 13-Aug-2009 Intent (J0696)By: Cher Sampson CNP, CNP, Mary E CT - AbdomenBy: Cher Sampson CNP On: 30-Jan-2009 Intent Cher Sampson CNP Radiology - Abdomen SeriesBy: Camilla On: 16-Jan-2009 Intent Cher ANNE CNP Cynthia Toradol Injection, 30 mg On: 09-Feb-2008 Intent (J1885)By: Cher Sampson CNP Comments: Amt: 30mgLot: [id number]: 12/2008Route: IMSite: right deltoid (per pt request)Tolerated: wellGiven By: SARAH Farrell CNP, Mary E Toradol Injection, 30 mg On: 22-Oct-2006 Intent (J1885)By: Wanda Cole DO Comments: Lot #:[id number] date: given:30mg/mlRoute: IMSite given:left deltoidGiven by: nidia smith MAMMOGRAM, SCREENING, BOTH BREASTS On: 04-Mar-2006 Intent (71218)By: TOI HOPKINS CNP Ultrasound - PelvisBy: SANDEEP [...] : Patient Instructions Indication: Hypercholesteremia Vaccine for gnnhpouczl-xpnukus-jeopdrbdk with poliomyelitis : How to access health information online Indication: Vaccine for dqawgitxug-xxdhlxk-esijmutuv with poliomyelitis Vaccine for uwdjearjws-jaktuoy-puraqxdrz with poliomyelitis : How to access health information online - Detail Indication: Vaccine for qbnojnrcyo-owqcdps-qgpsoayji with poliomyelitis Vaccine for kvprxaumfq-mjimxvx-hesepygug with poliomyelitis : Patient Instructions Indication: Vaccine for lpihtsivjw-bduemrc-ouhhnbxuz with poliomyelitis Hypercholesteremia : Patient Instructions Indication: [...] was stung last w End: 22-Oct-2006 16:16 [place] by a bee.). The course [...] Gerd (530.81) [facility] [employer] [place]Vonnie Gilbert; a guarantor
--- OUTSIDE RECORDS SUMMARY | 2018-05-25 02:30 | XMS RPT_ITS | Continuity of Care Document ---
:1965 Author Organization [facility] Address [address] [place] [address] Phone Care Team Providers Name Role Phone Cher Sampson CNP Unavailable Lamonte Kamara Unavailable Jany Sood Unavailable [...] physical therapy, will get MRI send to [facility] adding gabapentin and muscle relax worsening Status: [...] Elevated uric acid in blood (E79.0, 790.6) Status: Active Encounter for pre-employment examination (Z02.1, V70.5) Comments: physician annual wellness Status: Active Encounter for screening mammogram for [...] cough once dced cough gone Status: Active Hypertriglyceridemia, sporadic (E78.3, 272.3) Comments: on atorvastatin triglycerides 325 Status: Active Irregular menstrual cycle (N92.6, 626.4) Status: Active 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, 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) [...] Postmenopausal (Renamed from Postmenopausal status) (Z78.0, V49.81) Status: Active Pregnancies () Comments: 2 Status: [...] Active Unspecified Diagnosis Status: Active Vaccine for jfpqiehvjz-htxsllr-yqbqbxmym with poliomyelitis (Z23, V06.3) Status: Active Well Female (V72.31) (II) (Z00.00, V70.0) Status: Active Wheezing (R06.2, 786.07) Status: Active Medications Name Dates Details Bystolic 10 MG Oral Tablet 1 (one) Tablet daily for 30 days Quantity: 30 {Tablet} Refills: 0 Ordered:06-Jan-2018 Camilla ANNE, Cher Edge CNP Start : 06-Jan-2018 Active Cetirizine HCl 10 MG Oral Tablet 2 (two) Tablet daily for 30 days Quantity: 30 {Tablet} Refills: 2 Ordered:21-Oct-2017 Camilla ANNE, Cher Edge CNP Start : 21-Oct-2017 Active Estradiol 2 MG Oral Tablet 1 (one) Tablet daily for 90 days Quantity: 90 {Tablet} Refills: 0 Ordered:09-Oct-2017 Camilla ANNE, Cher Edge CNP Start : 09-Oct-2017 Active Lipitor 20 MG Oral Tablet 1 Tablet daily for 90 days Quantity: 90 {Tablet} Refills: 0 Ordered:27-Nov-2017 Camilla ANNE, Cher Edge CNP Start : 27-Nov-2017 Active ProAir HFA 108 (90 Base) MCG/ACT [...] days Quantity: 14 {Capsule} Refills: 0 Ordered:30-Jun-2012 [facility], [facility], Cynthia Start : 30-Jun-2012 End : 07-Jul-2012 Inactive LEVAQUIN, 500MG (Oral Tablet) 1 (one) Tablet daily for 7 days Quantity: 7 {Tablet} Refills: 0 Ordered:15-May-2014 [facility], [facility], Cynthia Start : 15-May-2014 End : 22-May-2014 [...] days Quantity: 30 {Tablet} Refills: 0 Ordered:09-Feb-2008 [facility] Start : 09-Feb-2008 End : 10-Mar-2008 Inactive MYCELEX, 10MG (Mouth/Throat Mikey) 1 (one) Mikey 5 times daily for 10 days Quantity: 50 {Mikey} Refills: 0 Ordered:28-Aug-2009 Camilla CODING ADVISOR, Cher Yatesdamián ANNE, Cynthia Start : 13-Aug-2009 End : 23-Aug-2009 [...] Quantity: 3 {Tablet} Refills: 0 Ordered:04-Feb-2013 Camilla CODING ADVISOR, Cher Wallace CODING ADVISOR, Cher Henson Start : 04-Feb-2013 End : [...] days Quantity: 90 {Tablet} Refills: 0 Ordered:04-Jan-2015 Butch SARAHFiorella Start : 03-Oct-2014 End : 04-Jan-2015 Discontinued Carvedilol 6.25 MG Oral Tablet 1 (one) Tablet Tablet two times daily for 0 days Quantity: 180 {Tablet} Refills: 3 Ordered:19-Oct-2015 Slarb BOOMBOAT OPERATORFlorence Walsh Start : 24-Apr-2015 End : 19-Oct-2015 Discontinued [...] days Quantity: 30 {Capsule_DR} Refills: 0 Ordered:12-Oct-2009 Mast Stacey RICHARDSON Start : 12-Oct-2009 End : 12-Oct-2009 Discontinued [...] days Quantity: 5 {Package} Refills: 1 Ordered:29-Nov-2014 SlaFlorence cee LPN Start : 09-Oct-2014 End : 29-Nov-2014 [...] evaluate with pelvic ultrasound. Will refer to [facility] if persists. Status: Inactive as of 17-Jul-2008 Dysuria (R30.0, 788.1) Status: Resolved as of 17-Jul-2008 hyperpigmentation Comments: discussed optioons Status: Inactive as of 28-Aug-2009 Insect bite, nonvenomous of shoulder and upper arm, infected (S40.269A, 912.5) Status: Inactive as of 28-Aug-2009 Mitral valve prolapse (I34.1, 424.0) Comments: stable [...] Density Study Result: Comments: See Note; NOTES: [facility] Imaging Services [address] [place] [address] [place] [address] Dexa Bone Density Study MR#: [id number] Acct: [id number] Name: VONNIE GILBERT Rep #: [id number] : 1965 F 51 From: Pola García MD PCP: Cher Sampson NP Status: REG CLI Study: Dexa Bone Density Study Date of Exam: 10/29/17 Exam# [id number] Ordering Dr: Cher Sampson STUDY: DUAL ENERGY [...] Pola García MD at 15:46 EDT Tel [phone], Service support , CC: Cher Sampson NP Ammunition Specialist: Signed 20-Aug-2017 SCREENING MAMM (CAD), BILAT Result: Comments: See Note; NOTES: [facility] Imaging Services [address] [place] [address] SCREENING MAMM (CAD), BILAT MR#: [id number] Acct: [id number] Name: VONNIE GILBERT Rep # : [id number] : 1965 F 51 From: Pola García MD PCP: Cher Sampson NP Status: REG CLI Study: SCREENING MAMM (CAD), BILAT Date of Exam: 08/20/17 Exam# [id number] Ordering Dr: Cher Sampson [facility] MOGRAPHY - BILATERAL SCREENING REASON FOR [...] delay biopsy of a clinically suspicious abnormality. [id number] Electronically Signed: Pola García MD at 12:57 EDT Tel [phone], Service support , CC: Cher Sampson NP Ammunition Specialist: Signed 20-Aug-2017 Downtime Report Result: Comments: See Note; NOTES: [facility] Medical Records Department [address] [place] [address] Downtime Report MR#: [id number] Acct: [id number] Name: VONNIE GILBERT Cruz Rep #: [id number] : 1965 51 From: Jesse Carrasco PCP: Cher Sampson NP Status: REG CLI This patient was seen during an EMR downtime August 03, 2017 - August 10, 2017. This patient may have a combination of paper and electronic documentation or all paper documentation. All documentation is viewable within the e-chart portion of [employer] for each patient visit. 19-Aug-2017 Downtime Report Result: Comments: See Note; NOTES: [facility] Medical Records Department [address] [place] [address] Downtime Report MR#: [id number] Acct: [id number] Name: VONNIE GILBERT Rep #: [id number] : 1965 51 From: Jesse Carrasco MD PCP: Cher Sampson NP Status: DEP ER This patient was seen during an EMR downtime August 03, 2017 - August 10, 2017. This patient may have a combination o f paper and electronic documentation or all paper documentation. All documentation is viewable within the e-chart portion of [employer] for each patient visit. 09-Apr-2017 Urgent Care Visit Report Result: Comments: See Note; NOTES: [facility] [address] [place] [address] OFFICE VISIT Date of Service: 04/09/17 MR#: [id number] Acct: [id number] Name: VONNIE GILBERT Rep #: [id number] : 1965 Provider: Donnie SOTOMAYOR Age/Sex: 51/F Location[place] [facility] [place] Status: Signed Intake Vital Signs04/09/17 Height 5 ft 9 in 04/09/17 Weight: 241 lb 04/09/17 Body Mass Index (B ND) 35.6 Intake Visit Reasons: ILL Draw Bench Operator Required: No Is patient in pain?: No [...] Diagnoses URI (upper respiratory infection) J06.9 04/09/17 5554 <Electronically signed by Donnie SOTOMAYOR> Date Donnie SOTOMAYOR Cosigner Signature: Date (if applicable) CC: 03-Apr-2017 Massage Therapy Evaluation Result: Comments: See Note; NOTES: [facility] 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 She was referred to the [...] CC: Cher Sampson NP LYUBOV Signed For [facility] care only, by signing this I certify the plan of care. Physicians Signature Date 16-Mar-2017 Urgent Care Visit Report Result: Comments: See Note; NOTES: [facility] [address] [place] [address] OFFICE VISIT Date of Service: 03/16/17 MR#: [id number] Acct: [id number] Name: VONNIE GILBERT Rep #: [id number] : 1965 Provider: Kris SOTOMAYOR Age/Sex: 51/F Location: [facility] [place] Status: Signed Intake Vital Signs03/16/17 Height 5 [...] fatigue Exam Const General: cooperative, healthy appearing HENMT Head: normocephalic, atraumatic Ears: hearing grossly normal [...] the above. This note was generated with [employer] dictation software. It may contain incorrect words, spelling, and punctuation that were not noted in checking the note before signing. Orders Orders: Coding Level of Care Code Off vis,new,level 3 Diagnoses RUQ abdominal pain R10.11 03/16/17 1210 <Electronically signed by Kris SOTOMAYOR> Date Kris SOTOMAYOR Cosigner Signature: Date (if applicable) CC: 27-Feb-2017 Discharge Summary Result: Comments: See Note; NOTES: [facility] Medical Records Department [address] [place] [address] Discharge Summary 02/27/17 1309 MR#: [id number] Acct: [id number] Name: VONNIE GILBERT Cruz Rep #: [id number] : 1965 51 From: Yvrose Pickard PCP: [...] discharge this patient from our care at [facility] facility. Sincerely, Yvrose Pickard LMT 02/27/17 1315 <Electronically signed by Yvrose Pickard > Date Yvrose Murrieta Signature (if applicable): Date ____ CC: Cher Sampson NP; Yvrose Pickard Signed 04-Oct-2016 Emergency Department Summary Result: Comments: See Note; NOTES: [facility] Medical Records Department [address] [place] [address] Emergency Department Summary 10/04/16 2158 MR#: [id number] Acct: [id number] Name: VONNIE GILBERT Rep #: [id number] : 1965 50 From: Jaylen Khan MD [...] your Primary Care Provider. Call [facility] ([phone]) or report to the closest Emergen cy Room. Call 911 if necessary. 10/04/16 2321 <Electronically signed by Jaylen Khan MD> Date Jaylen Khan MD Cosigner Signatur e (If Indicated): Date CC: Cher Sampson 15-Aug-2016 SCREENING MAMM (CAD), BILAT Result: Comments: See Note; NOTES: [facility] Imaging Services [address] [place] [address] Verdana 4d SCREENING MAMM (CAD), BILAT MR#: [id number] Acct: [id number] Name: Gwen GILBERT Rep #: [id number] : 1965 F 50 From: Pola García MD PCP: Cher Sampson Status: REG CLI Study: SCREENING MAMM (CAD), BILAT Date of Exam: 08/15/16 Exam# [id number] Ordering Dr: Jonathan Sampson ry MAMMOGRAPHY - [...] delay biopsy of a clinically suspicious abnormality. [id number] Electronically Signed: Pola García MD at 10:21 EDT Tel [phone], Serv ice support , CC: Cher Sampson Ammunition Specialist: Signed 04-Mar-2016 PT Discharge Summary Result: Comments: See Note; NOTES: [facility] [address] [place] [address] Fax REHABILITATION SERVICES DISCHAR GE SUMMARY MR#: [id number] Acct: [id number] Name: VONNIE GILBERT Rep #: [id number] : 1965 50 From: Susu Malin Referring [...] the patient from our care at the [facility] facility. Susu Malin LMT T: REG JOB: [id number] &#60 ;Electronically signed by Susu Malin > 03/04/16 0643 CC: Cher Sampson Signed 28-Feb-2016 PT Discharge Summary Result: Comments: See Note; NOTES: [facility] [address] [place] [address]. [address] [place], [place] [address] Fax REHABILITATION SERVICES DISCHAR GE SUMMARY MR#: [id number] Acct: [id number] Name: VONNIE GILBERT Rep #: [id number] : 1965 50 From: Susu Malin Referring [...] the patient from our care at the [facility] facility. Susu Malin LMT T: REG JOB: [id number] &#60 ;Electronically signed by Susu Malin > 02/28/16 1658 CC: Cher Sampson Signed 29-Jan-2016 PT D/C of Non Returning Pt (1) Result: Comments: See Note; NOTES: [facility] [address] [place], [place] [address] Fax REHABILITATION SERVICES DISCHAR GE SUMMARY MR#: [id number] Acct: [id number] Name: VONNIE GILBERT Rep #: [id number] : 1965 50 From: Noam Martinez PT, Cert. MDT, OCS Referring DrAshutosh: Cher Sampson Status: REG RCR Insurance: [facility] Curiously [facility] HP - Discharge Summary (1) - [...] the physician. Thank you! Noam Martinez PT, <[facility] signed by Noam Martinez PT, Cert. MDT, [facility]> 01/29/16 0926 CC: Cher Sampson BRIGITTE Signed 07-Dec-2015 Spine Cervical (Routine) Result: Comments: See Note; NOTES: [facility] Imaging Services [address] [place] [address] Verdana 4d Spine Cervical (Routine) MR#: [id number] Acct: [id number] Name: NOHEMI GILBETR Rep #: [id number] : 1965 F 49 From: Kendal Cox DO PCP: Cher Sampson Status: REG CLI Study: Spine Cervical (Routine) Date of Exam: 12/07/15 Exam# [id number] Ordering Dr: Cher Sampson Y: MRI CERVICAL [...] at 1:40 EDT Tel , Service support [phone], CC: Cher Sampson Ammunition Specialist: Signed 19-Nov-2015 Inital Evaluation (1) - PT Result: Comments: See Note; NOTES: [facility] [address] [facility] [place] [address] Fax REHABILITATION SERVICES INITIA L EVALUATION MR#: [id number] Acct: [id number] Name: VONNIE GILBERT Rep #: [id number] : 1965 49 From: Noam Osman Referring Dr.: Cher Sampson Status: REG RCR Insurance: [facility] [employer] Patient's Visit Information VONNIE GILBERT is a [...] to be FAXED BACK to us at [phone] for Medicare purposes. Please let me know if there are questions or concerns regarding this plan of care. Physician Si gnature: Date: <Electronically signed by Noam Osman > 11/19/15 1129 CC: Cher Sampson KARLEY Sign ed For Medicare only, by signing this I certify the plan of care. Physicians Signature Date 16-Nov-2015 Cerv Spine 4 or 5 Views Result: Comments: See Note; NOTES: [facility] Imaging Services [address] [place] [address] Verda 4d Cerv Spine 4 or 5 Views MR#: [id number] Acct: [id number] Name: VONNIE GILBERT Rep #: [id number] : 1965 F 49 From: Pola García MD PCP: Cher Sampson Status: REG CLI Study: Cerv Spine 4 or 5 Views Date of Exam: 11/16/15 Exam# [id number] Ordering Dr: Cher Sampson: X-RAY - CERVICAL [...] Pola García MD at 14:54 EDT Tel [phone], Service support [phone], CC: Cher Sampson Ammunition Specialist: Signed 01-Aug-2015 Inital Evaluation - PT Result: Comments: See Note; NOTES: [facility] [facility] [place] [address] Fax REHABILITATION SE RVICES INITIAL EVALUATION MR#: [id number] Acct: [id number] Name: VONNIE GILBERT Rep #: [id number] : 1965 49 From: Susu Garcia Referring DrAshutosh: Cher Sampson Status: REG RCR Insura nce: COUNT INCLUDES THE [facility] Eval Date: DATE OF SERVICE: 03/30/2015 REFERRING PHYSICIAN: Dr. 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 Sampson [...] sessions. Susu Garcia LMT T: REG JOB: [id number] <Electronically signed by Susu Garcia > 08/01/15 1909 CC: Signed For Medicare only, by signing this I certify the plan of care. Physicians Signature Date 20-Jul-2015 Bilat Scrn Digital AND CAD Result: Comments: See Note; NOTES: [facility] Imaging Services [address] [place] [address] Verdana 4d Bilat Scrn Digital AND CAD MR#: [id number] Acct: [id number] Name: VONNIE GILBERT Rep #: [id number] : 1965 F 49 From: Pola García MD PCP: Cher Sampson Status: REG CLI Study: Bilat Scrn Digital AND CAD Date of Exam: 07/20/15 Exam# [id number] [place] sult[address] Dr: Cher Sampson MAMMOGRAPHY - [...] delay biopsy of a clinically suspicious abnormality. [id number] Electronic ally Signed: Pola García MD at 12:25 EDT Tel [phone], Service support [phone], CC: Cher Sampson Ammunition Specialist: Signed 05-Mar-2015 PT Discharge Summary Result: Comments: See Note; NOTES: [facility] [address] [place] [address]. [address] [place], [place] [address] Fax REHABILITATION SE ROSE DISCHARGE SUMMARY MR#: [id number] Acct: [id number] Name: VONNIE GILBERT Rep #: [id number] : 1965 49 From: Susu Garcia Referring [...] the patient from our care at the [facility] facility. Susu Garcia LMT T: NTS JOB: [id number] <Electronically signed by Susu Garcia & #62; 03/05/15 1201 CC: Cher Sampson Signed 24-Apr-2014 Inital Evaluation - PT Result: Comments: See Note; NOTES: [facility] [address] [place] [address] Fax REHABILITATION SERVICES INITIAL EVALUATION MR#: [id number] Acct: [id number] Name: VONNIE GILBERT Rep #: [id number] : 1965 48 From: Susu Garcia Referring Dr.: Cher Sampson Status: DIS RCR Insurance: [facility] [employer] Eval Date: DATE OF SERVICE: 03/17/2014 REFERRING PHYSICIAN: Dr. Cher Sampson. 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 She was referred to the [facility] facility for massotherapy evaluation by Dr. Sampson [...] sessions. Susu Garcia LMT T: REG JOB: [id number] <Electronically signed by Susu Garcia > 04/24/14 1107 CC: Signed For Medicare only, by sign ing this I certify the plan of care. Physicians Signature Date 10-Mar-2014 PT Discharge Summary Result: Comments: See Note; NOTES: [facility] [address] [place] [address]. [address] [place] [address] Fax REHABILITATION SERVICES DISCHARGE SUMMARY MR#: [id number] Acct: [id number] Name: VONNIE GILBERT Rep #: [id number] : 1965 48 From: Susu Garcia Referring [...] the patient from our care at the [facility] facility. Susu Garcia LMT T: REG JOB: [id number] <Electronically signed by Susu Garcia > 03/10/14 1104 CC: Signed 16-Jun-2013 Inital Evaluation - PT Result: Comments: See Note; NOTES: [facility] [address] [place] [address] Fax REHABILITATION SERVICES INITIAL EVALUATION MR#: [id number] Acct: [id number] Name: VONNIE GILBERT Rep #: [id number] : 1965 47 From: Susu Garcia Referring Dr.: Cher Sampson Status: DIS RCR Insurance: [facility] [employer] Eval Date: DATE OF SERVICE: 05/25/2013 REFERRING PHYSICIAN: Dr. Cher Sampson. 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 [...] on an as needed basis throughout the 2013 for a total of ten 1- hour sessions. Susu Garcia LMT T : REG JOB: [id number] <Electronically signed by Susu Garcia > 06/16/13 4475 CC: Signed For Medicare only, by signing this I certify the plan of c are. Physicians Signature Date 19-Feb-2013 PT Discharge Summary Result: Comments: See Note; NOTES: [facility] [address] [place] [address] Fax REHABILITATION SERVICES DISCHARGE SUMMARY MR#: [id number] Acct: [id number] Name: VONNIE GILBERT Rep #: [id number] : 1965 47 From: Susu Garcia Referring DrAshutosh: Cher Sampson Status: PRE RCR Eval Date: [...] the patient from our care at the [facility]. Susu Garcia LMT T: REG JOB: [id number] &amp ;#60;Electronically signed by Susu Garcia > 02/19/13 1043 CC: * Signed 04-Feb-2013 Chest PA and Lateral Result: Comments: See Note; NOTES: [facility] Imaging Services [address] [place] [address] Radiology Report MR#: [id number] Acct: [id number] Name: VONNIE GILBERT Rep #: [id number] : 1965 F 47 From: Pola García MD PCP: Status: [facility] Study: Chest PA and Lateral Date of Exam: 02/04/13 Exam# [id number] Ordering Dr: Cher Sampson STUDY: X-RAY CHEST [...] M.D. 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 [place], [place], [address] Absolute Lymph 2.40 {X10_3/ul} (Normal) Range: 0.83-4.51 [...] 4.2-5.4 WBC 7.4 K/mm3 (Normal) Range: 4.4-11.0 0-Tzj-197542:05 Employee Profile Comments: [facility] [address] [place], [place], [address] LDH 167 U/L (Normal) Range: 84-246 VLDL [...] Comments: Please note revised GLUCOSE reference range kyvwznlih83/02/2018. 0-Cfm-571667:05 Nicotine Urine Drug Screen Comments: [facility] [address] [place], [place], [address] COT DRG SCREEN Negative (Normal) Comments: Cotinine [...] result, particularly whenpreliminary positive results are used. 3-Uiz-293808:05 Urinalysis, Employee Comments: [facility] [address] [place], [place], [address] LEUK ESTERASE Negative /ul (Normal) OCCULT BLOOD-UR Negative /ul (Normal) NITRITE UR Negative (Normal) UROBILI Normal mg/dL (Normal) PROT DIPSTX Negative mg/dL (Normal) pH UR 5.0 (Normal) Range: 5.0 - 8.0 SP.GR. DIPSTX 1.020 (Normal) Range: 1.002-1.030 KETONE UR Negative mg/dL (Normal) BILIRUBIN URINE Negative mg/dL (Normal) GLUCOSE, UR Normal mg/dL (Normal) CLARITY Clear (Normal) COLOR Yellow (Normal) 02-Fjj-517206:27 CBC W/Diff, Automated Comments: [facility] [address] [place], [place], [address] Absolute Lymph 2.41 {X10_3/ul} (Normal) Range: 0.83-4.51 [...] 4.2-5.4 WBC 9.1 K/mm3 (Normal) Range: 4.4-11.0 06-Zxt-766894:27 Comprehensive Metabolic Profil Comments: [facility] [address] [place], [place], [address] GAP 9 (Normal) Range: 5-15 CO2 24.0 [...] 7-18 GLU 84 mg/dL (Normal) Range: 70-110 4-Edd-296527:55 CBC, Employee Comments: [facility] [address] [place], [address] Absolute Lymph 2.01 {X10_3/ul} (Normal) [...] 4.2-5.4 WBC 7.2 K/mm3 (Normal) Range: 4.4-11.0 6-Hir-208313:55 Employee Profile Comments: [facility] [address] [place], [place], [address] LDH 178 U/L (Normal) Range: 84-246 VLDL [...] 7-18 GLU 81 mg/dL (Normal) Range: 70-110 9-Ugt-917677:55 Nicotine Urine Drug Screen Comments: [facility] [address] [place], [place], [address] COT DRG SCREEN Negative (Normal) Comments: Cotinine [...] result, particularly whenpreliminary positive results are used. 4-Cjv-997414:55 Urinalysis, Employee Comments: [facility] [address] [place], [address] LEUK ESTERASE Negative /ul (Normal) [...] (Normal) 03-Jul-20169:40 Culture, R/O Strep A Comments: [facility] [address] [place], [place], [address] CUSTREPA See Note (Normal) Comments: NAI CultureNo Group A Beta Streptococcus isolated. * This cultures intended use is to screen for Beta Streptococcus A only. All other pathogens and potential pathogens will not be screened for or re ported. If a complete workup of all potential pathogens is indicated an order for a routine throat culture is required. :56 CBC, Employee Comments: [facility] [address] [place], [place], [address] Absolute Lymph 2.21 {X10_3/ul} (Normal) Range: 0.83-4.51 [...] (Normal) Range: 4.4-11.0 :56 Employee Profile Comments: [facility] [address] [place], [place], [id number] LDH 190 U/L (Normal) Range: 84-246 VLDL [...] 70-110 :56 Nicotine Urine Drug Screen Comments: [facility] [address] [place], [place], [id number] COT DRG SCREEN Negative (Normal) Comments: Cotinine [...] Employee Comments: How was Urine Obtained? CLEAN [facility] [address] [place], [place], [id number] LEUK ESTERASE 25 /ul (Abnormal) OCCULT BLOOD-UR Negative /ul (Normal) NITRITE UR Negative (Normal) UROBILI Normal mg/dL (Normal) PROT DIPSTX 15 mg/dL (Abnormal) pH UR 5.0 (Normal) Range: 5.0 - 8.0 SP.GR. DIPSTX 1.020 (Normal) Range: 1.002-1.030 KETONE UR Negative mg/dL (Normal) BILIRUBIN URINE Negative mg/dL (Normal) GLUCOSE, UR Normal mg/dL (Normal) CLARITY Clear (Normal) COLOR Yellow (Normal) 3-Hfp-901825:53 Lipid Profile Comments: [facility] [address] [place], [place], [phone] VLDL 40 mg/dL (Normal) Range: 5-40 LDL [...] 200-240 mg/dL Borderline >240 mg/dL High Risk 37-Szb-208972:04 CBC, Employee Comments: Test performed at:[facility] [address] [place] [address] Absolute Lymph 2.04 {X10_3/ul} (Normal) Range: [...] 4.2-5.4 WBC 5.4 K/mm3 (Normal) Range: 4.4-11.0 19-Hun-713409:04 Employee Profile Comments: Test performed at:[facility] [address] [place] [address] LDH 190 U/L (Normal) Range: [...] Comments: Please note revised CREATININE reference range /22/2015. BUN 17 mg/dL (Normal) Range: 7-18 GLU 89 mg/dL (Normal) Range: 70-110 89-Pga-354825:04 Urinalysis, Employee Comments: Test performed at:[facility] [address] [place], [place] [id number] LEUK ESTERASE Negative /ul (Normal) OCCULT BLOOD-UR Negative /ul (Normal) NITRITE UR Negative (Normal) UROBILI Normal mg/dL (Normal) PROT DIPSTX Negative mg/dL (Normal) pH UR 6.0 (Normal) Range: 5.0 - 8.0 SP.GR. DIPSTX 1.015 (Normal) Range: 1.002-1.030 KETONE UR Negative mg/dL (Normal) BILIRUBIN URINE Negative mg/dL (Normal) GLUCOSE, UR Normal mg/dL (Normal) CLARITY Sl. Cloudy (Normal) COLOR Yellow (Normal) 29-Cgc-069714:45 CBCEM ALC 1.82 {X10_3/ul} (Normal) Range: 0.83-4.51 [...] 4.2-5.4 WBC 5.9 K/mm3 (Normal) Range: 4.4-11.0 59-Plg-349447:45 EMP Comments: [facility] EMPLOYEE ANNUAL [facility] SVCATTNico BUSBY....NO NOT MAIL LDH 211 U/L (Normal) [...] CHOL 201 mg/dL (Abnormal) Comments: <200 mg/dL Wpybjhqzp307-770 mg/dL Borderline>240 mg/dL High Risk BID 0.14 [...] 7-18 GLU 103 mg/dL (Normal) Range: 70-110 02-Qml-387514:45 UAEM DAMIÁN Negative /ul (Normal) UOB Negative /ul (Normal) SYLVIA Negative (Normal) UROBU Normal mg/dL (Normal) uPROTU Negative mg/dL (Normal) ELISE 5.0 (Normal) Range: 5.0 - 8.0 SGU 1.020 (Normal) Range: 1.002-1.030 KETU Negative mg/dL (Normal) BILIU Negative mg/dL (Normal) GLUR Normal mg/dL (Normal) UCLAR Sl. Cloudy (Normal) UCOL Yellow (Normal) 2-Tzl-426131:12 DDIMQ 0.30 {FEUug/mL} (Normal) Range: 0.22-0.48 Comments: NORMAL D-Dimer level indicates no DVT or PE. 1-Xhx-749972:23 Pathology Report Comments: PERFORMED BY: [employer] [facility] [place] Izpa40218 [facility] [id number] Information: [id number] See MATER Comments: Material submitted: .EXCISION RIGHT AXILLAClinical history: .LIPOMA;ETIOLOGY UNKNOWN;CHECK FOR MARGINS Note (Normal) Diagnosis:EXCISION RIGHT AXILLA:BENIGN LIPOMA..[facility]/07/02/2012Kuldeep rosina karennatasha signed: .Forest Espinoza MD, PhD, PathologistGross description: .1 Container, formalin-filled, labeled with patient id entification.EXCISION RIGHT AXILLA:Received in formalin are multiple fragments of yellow tissuemeasuring 2.4 x 1.7 x 0.3 cm in aggregate. It is filtered through anembedding bag and submitted as received in cassette A./LMSLMS/LMSPathologist provided ICD-9:214.9CPT .572596 27-Dnq-223170:23 LIPID VLDL 30 mg/dL (Normal) Range: 5-40 [...] Very High > or = 500 mg/dL 68-Jpb-317469:23 LIVER BID 0.08 mg/dL (Normal) Range: 0.00-0.30 BIT 0.50 mg/dL (Normal) Range: 0.00-1.00 ALK 86 U/L (Normal) Range: 50-136 ALT 30 U/L (Normal) Range: 12-78 ALB 4.1 g/dL (Normal) Range: 3.4-5.0 AST 17 U/L (Normal) Range: 15-37 TPROT 7.2 g/dL (Normal) Range: 6.4-8.2 28-Imp-638395:06 LIPID VLDL 41 mg/dL (Abnormal) Range: 5-40 [...] :24 A1C 5.3 % (Normal) Range: 4.2-6.3 41-Xyj-417144:24 LIPID VLDL 20 mg/dL (Normal) Range: 5-40 [...] 200-240 mg/dL Borderline >240 mg/dL High Risk 65-Obi-834736:07 HGB A1C 5.9 % (Normal) Range: 4.2-6.3 7-Cvj-500050:22 FSH 4309 10.4 m[iU]/mL (Normal) Comments: Follicular phase 3.5 - 12.5 Ovulation phase 4.7 - 21.5 Luteal phase 1.7 - 7.7 Postmenopausal 25.8 - 134.8Performed at: CB - [facility] [address] [id number] Director: Mary Mccallum MD, Phone: [phone] :[phone] LIVER Comments: appt 02/11/11 D BILI [...] - 11.4 Postmenopausal 7.7 - 58.5 :22 PROT.[id number] M-SPIKE,U SeeNote % (Normal) Comments: Result: Not Observed NOTE Comment (Normal) Comments: Protein electrophoresis scan will follow via computer,mail, or taper/finisher delivery. GAMMA GLOB,U 11.4 % (Normal) BEACG-3-QFSB,U 9.0 % (Normal) BETA GLOB,U 24.2 % (Normal) ZQCZV-3-YIKP,U 1.7 % (Normal) ALBUMIN,UR 53.7 % (Normal) PROTEIN,UR 24.6 mg/dL (Abnormal) Range: 0.0-15.0 :22 SPE [id number] INTERPRETATION Comment (Normal) Comments: The SPE pattern appears essentially unremarkable. Evidenceof monoclonal protein is not apparent.Protein electrophoresis scan will follow via computer,mail, or taper/finisher delivery. A/G RATIO 1.3 (Normal) Range: 0.7-2.0 [...] 200-240 mg/dL Borderline >240 mg/dL High Risk 20-Hra-852591:03 MICROALB:CRE UR MALB:CREAT 41.3 {mg/g_CRE} (Abnormal) MICROALBUMIN,UR 66.0 mg/L (Normal) UR CREAT 159.7 mg/dL (Normal) 71-Sji-469994:03 TSH 1.16 {uIU/mL} (Normal) Range: 0.358-3.74 67-Rta-488055:57 CERV SPINE,MIN 4 VIEWS Radiology Report See Note (Normal) Comments: Exam Number: [id number] CLINICAL:43-year-old female with neck pain. X-RAY EXAMINATION: [...] of spondylosis. Reported By: ELSA MOODY M.D. 7-Yyh-713861:33 MYOCARD PERF STRESS/REST MULT Radiology Report See Note (Normal) Comments: Exam Number: [id number] MYOCARDIAL PERFUSION SCAN 11.3 mCi of Tc99m [...] fraction. Reported By: ANNA MARIE PANTOJA M.D. 24-Eit-963198:42 CBCD,SMEAR DIFF RED CELL MORPH SeeNote {NORMAL} [...] 4.2-5.4 WBC 6.8 K/mm3 (Normal) Range: 4.4-11.0 55-Qcy-307882:42 RENAL CL 103 mmol/L (Normal) Range: 98-107 [...] 2.5-4.9 GLU 102 mg/dL (Normal) Range: 70-110 69-Zos-335920:26 Aerobic Bacterial Culture Comments: PATIENT NOT FASTINGPERFORMED BY: CB [facility] Kcyqvm3573 [facility] [id number] Information: SRC: RIGHT ARM Antimicrobial MIHEAD (Normal) [...] oxacillin predictssusceptibility or resistance to (a) other qkug-znmmgnasz-wzqfoipprfzppijia such as cloxacillin and dicloxacillin, (b) co (Normal) mbinationsof a penicillin and a beta-lactamase inhibitor, and(c) anti- staphylococcal cephalosporins. Routine testing of otherpenicillins, beta-lactam/beta-lactamase inhibitor combinations,cephems, and c arbapenems is not advised by the CLSI Standards(Y439-C21, 2005). Aerobic Bacterial Final report (Normal) Culture 0-Viq-477980:45 SED RATE ERYTHROCYTE (41751) Comments: PATIENT NOT FASTINGPERFORMED BY: CB [facility] Rlbebu8431 [facility] [id number] Sedimentation Rate-Westergren 2 mm/h (Normal) Range: 0-20 6-Bwr-705758:45 CBC with manual diff (66790) Comments: PATIENT NOT FASTINGClinical Information: [id number] PERFORMED BY: ELLIOT EligibleGallup Indian Medical CenterEheigo0511 [facility] [id number] Baso (Absolute) 0.0 {x10E3/uL} (Normal) Range: 0.0-0.2 [...] FUNCTION PANEL Comments: PATIENT NOT FASTINGPERFORMED BY: EligibleBristol-Myers Squibb Children's HospitalPyuxpf0647 [facility] [id number] ([id number]) Bilirubin, Direct 0.14 mg/dL (Normal) Range: 0.00-0.40 :45 Metabolic Panel, Comprehensive Comments: PATIENT NOT FASTINGPERFORMED BY: LabCoBristol-Myers Squibb Children's HospitalSfbwdn0253 [facility] [id number] (44234) A/G Ratio 2.0 (Normal) Range: 1.1-2.5 Albumin, [...] Sodium, Serum 139 mmol/L (Normal) Range: 135-145 0-Odn-716626:03 Urinalysis, Office (80944) UA - BLOOD Negative (Normal) UA - LEUKOCYTE ESTERASE Negative (Normal) UA - NITRITE Negative (Normal) UA - PH 6.0 (Normal) UA - PROTEIN Negative mg/dL (Normal) URINE UROBILINGN ABIGAIL TIMED Normal mg/dL (Normal) UA - BILIRUBIN Negative (Normal) UA - GLUCOSE Negative (Normal) UA - KETONES Negative mg/dL (Normal) UA - SPECIFIC GRAVITY 1.025 (Normal) 9-Aye-473772:47 ABDOMEN WITH IV CONTRAST Radiology Report See Note (Normal) Comments: Exam Number: [id number] HISTORYRight side abdominal pain. CT ABDOMEN WITH [...] at liver,most likely represent cysts. Reported By: iMnor Boateng 29-Yvr-692094:21 ACUTE ABDOMEN, INC CHEST (MT) Radiology Report See Note (Normal) Comments: Exam Number: [id number] CLINICAL:Right upper quadrant pain. X-RAY EXAMINATION: CHEST [...] upper quadrant. Reported By: MICHAELA MARK M.D. 85-Bzd-514635:15 CBC with manual diff (92690) Comments: PATIENT NOT FASTINGClinical Information: [id number] PERFORMED BY: LabCoBristol-Myers Squibb Children's HospitalSuslyj8136 [facility] [id number] Baso (Absolute) 0.0 {x10E3/uL} (Normal) Range: 0.0-0.2 [...] 11.7-15.0 WBC 6.0 {x10E3/uL} (Normal) Range: 4.0-10.5 22-Mfu-985901:15 Metabolic Panel, Comprehensive Comments: PATIENT NOT FASTINGPERFORMED BY: LabCoBristol-Myers Squibb Children's HospitalCuzvjx7814 [facility] [id number] (22030) A/G Ratio 1.8 (Normal) Range: 1.1-2.5 Albumin, [...] Sodium, Serum 139 mmol/L (Normal) Range: 135-145 91-Qdr-999584:15 HEPATIC FUNCTION PANEL Comments: PATIENT NOT FASTINGPERFORMED BY: LabCoBristol-Myers Squibb Children's HospitalIprijs3075 [facility] [id number] (41727) Bilirubin, Direct 0.11 mg/dL (Normal) Range: 0.00-0.40 1-Wdv-019851:34 CBC, EMPLOYEE HCT 42.3 % (Normal) Range: 37-47 HGB 14.6 g/dL (Normal) Range: 12.0-16.0 MCH 30.1 pg (Normal) Range: 27.0-32.0 MCHC 34.6 g/dL (Normal) Range: 32-36 MCV 87.1 fL (Normal) Range: 81-99 MPV 8.1 fL (Normal) Range: 6.5-12.0 PLT 349 K/mm3 (Normal) Range: 150-450 RBC 4.86 {M/mm3} (Normal) Range: 4.2-5.4 RDW 12.6 % (Normal) Range: 11.6-14.6 WBC 5.5 K/mm3 (Normal) Range: 4.4-11.0 0-Dxy-233598:34 EMP PROF A/G 1.2 {RATIO} (Normal) Range: [...] patient's is the eGFRmultiplied by 1.212. [facility] Laboratory uses the abbreviated Modification of [...] Disease W/O Kidney Disease>/= 90 Stage One Rwnceg09 - 89 Stage Two Suspect Decreased GFR30 [...] 2.6-6.0 VLDL 14 mg/dL (Normal) Range: 5-40 5-Tjw-238525:34 EMP URINALYSIS BILIRUBIN URINE SeeNote (Normal) Comments: [...] 0.2 EU/dl (Normal) Range: 0.2 - 1.0 50-Gus-238171:52 Pap Lb, Ct-Ng, Comments: Source.............Cervical;EndocervicalNo. of containers..01 CYTYC Thin Prep VialPERFORMED BY: =[facility] [place] [id number] HPV-hr . . (Normal) Chlamydia, Nuc. Acid Amp Negative (Normal) DIAGNOSIS: SPRCS (Normal) Comments: NEGATIVE FOR INTRAEPITHELIAL LESION AND MALIGNANCY.Satisfactory for evaluation. Endocervical and/or squamous metaplasticcells (endocervical component) are present.616.10 ; Unspecified vagin itis and vul vovaginitisNatalie A Nataliya, Wholesale Representative Gonococcus, Nuc. Acid Amp Negative (Normal) Note: PAPSMR (Normal) Comments: The Pap smear is a screening test designed to aid in the detection ofpremalignant and malignant conditions of the uterine cervix. It is not adiagnostic procedure and should not be used as the sole mean s of detectingcervical cancer. Both false-positive and false-negative reports do occur. . 73-Ysc-862011:37 Urinalysis, Office (96110) UA - LEUKOCYTE ESTERASE Negative (Normal) Comments: aw UA - BILIRUBIN Negative (Normal) UA - BLOOD Negative (Normal) UA - GLUCOSE Negative (Normal) UA - KETONES Negative mg/dL (Normal) UA - NITRITE Negative (Normal) UA - PH 5.0 (Normal) UA - PROTEIN Negative mg/dL (Normal) UA - SPECIFIC GRAVITY 1.020 (Normal) URINE UROBILINGN ABIGAIL TIMED Normal mg/dL (Normal) 60-Wau-60248:51 CBC, EMPLOYEE HCT 38.2 % (Normal) Range: [...] Range: 0.2 - 1.0 COLOR YELLOW (Normal) 31-Iby-950965:15 Urinalysis, Office (40147) UA - BILIRUBIN Large (Normal) UA - BLOOD Non Hemolyzed Trace (Normal) UA - GLUCOSE Negative (Normal) UA - KETONES Negative mg/dL (Normal) UA - LEUKOCYTE ESTERASE Trace (Normal) Comments: aw UA - NITRITE Negative (Normal) UA - PH 5.0 (Normal) UA - PROTEIN Negative mg/dL (Normal) UA - SPECIFIC GRAVITY 1.020 (Normal) URINE UROBILINGN ABIGAIL TIMED Normal mg/dL (Normal) 00-Cyl-543647:15 CULTURE, URINE URINE CULTURE See Note {CFU/mL} [...] - 208.5 Postmenopausal 1.8 - 20.3Performed At: [facility] [place], [place] [id number] :52 PTT 30.5 s (Normal) Range: 24.6-36.6 :52 TSH 1.29 {uIU/mL} (Normal) Range: 0.34-4.82 Plan of Care Name Dates Details Instructions BMI 35.0-35.9,adult : Follow up in 3 [...] symptoms worsen Indication: Motion sickness Vaccine for yxtudiqegh-vvbnlwk-zjshzzbao with poliomyelitis : Eprescribed prescriptions (G8553) Indication: Vaccine for txedyfdmic-mvjlfch-msiqvkbzw with poliomyelitis Cough : Follow up if [...] specified site : FOLLOW UP TOMORROW with [facility] for IV vancomycin Day #3 Indication: Cellulitis and abscess of other specified site Insect bite, nonvenomous of shoulder and upper arm, infected : FOLLOW UP TOMORROW for IV vanco over 1 hr with [facility] Indication: Insect bite, nonvenomous of shoulder and upper arm, infected Cellulitis and abscess of other specified site : I/D Cyst/Abscess Indication: Cellulitis and abscess of other specified site Candidiasis, mouth : FOLLOW UP TOMORROW with [facility] Indication: Candidiasis, mouth Hypercholesteremia : [...] Indication: GERD (gastroesophageal reflux disease) Planned Observations URIC ACID BLOOD (42846)Indication: Elevated uric acid in blood On: 6-Gfd-186393:41 Request Lipid Panel (60309)Indication: Hypertriglyceridemia, sporadic On: 2-Bvu-508016:40 Request Comments: fasting Lipid Panel (46011)Indication: Hypercholesteremia On: 77-Zwr-511516:20 Request Comments: to be done in [address] [facility] (01478)Indication: Cough On: 3-Mmd-834553:12 Request Lipid Panel (60723)Indication: Hypercholesteremia On: 63-Tji-294828:08 Request Comments: fasting HEPATIC FUNCTION PANEL (22187)Indication: Hypercholesteremia On: 70-Nyc-922209:02 Request Lipid Panel (15836)Indication: Hypercholesteremia On: 22-Qjy-68635:26 Request Hemoglobin Glyclated (HGB A1C) (14469)Indication: Proteinuria On: 21-Fwz-24380:41 Request Lipid Panel (01551)Indication: Hypercholesteremia On: 00-Cdr-71296:35 Request LIPID PANEL (62969)Indication: Hypercholesteremia On: 23-Cun-510510:51 Request UPEP (10261)Indication: Proteinuria On: 33-Zmo-342894:56 Request SPEP (97217)Indication: Proteinuria On: 02-Kvj-824620:56 Request GONADOTROPIN-LH (07302)Indication: Irregular menstrual cycle On: 52-Wwv-536698:55 Request GONADOTROPIN-FSH (32806)Indication: Irregular menstrual cycle On: 09-Vth-485006:54 Request HEPATIC FUNCTION PANEL (16549)Indication: Hypercholesteremia On: 05-Spf-667568:49 Request Hemoglobin Glyclated (HGB A1C) (01153)Indication: Proteinuria On: :13 Request GONADOTROPIN-LH (51768)Indication: Unspecified Diagnosis On: : Request GONADOTROPIN-FSH (82659)Indication: Unspecified Diagnosis On: : Request HEPATIC FUNCTION PANEL (99847)Indication: Unspecified Diagnosis On: : Request TSH (13241)Indication: Hypertension On: Request URINALYSIS, W/ MICRO (99964)Indication: Hypertension On: Request MICROALBUMIN: CREATININE RATIO (17110) AND (61878)Indication: Hypertension On: : Request METABOLIC PANEL, COMPREHENSIVE (59483)Indication: Hypertension On: Request LIPID PANEL (84589)Indication: Hypertension On: Request CREATININE, URINE (41061)Indication: Hypertension On: Request CBC WITH MANUAL DIFF (45107)Indication: Hypertension On: Request TAMIA CULTURE-OTHER (38020)Indication: Cellulitis and abscess of other specified site On: 59-Meq-61632:48 Request Comments: rt inner arm thin prep (31737) (std testing)Indication: Vaginitis and vulvovaginitis On: 91-Vnt-976444:17 Request NEISSERIA (58412) (THIN PREP OBTAINED)Indication: Vaginitis and vulvovaginitis On: 63-Urv-313315:17 Request HUMAN PAPILVS, NUCLEIC ACID AMPL PROBE (47657)Indication: Vaginitis and vulvovaginitis On: 41-Vsj-179806:17 Request CHLAMYDIA (16358) (thin prep obtained)Indication: Vaginitis and vulvovaginitis On: 97-Nmt-001095:17 Request URINE TAMIA CULTURE (ABIGAIL COL COUNT) (33283)Indication: Dysuria On: 31-Imm-530123:14 Request LIPID PANEL (96244)Indication: Hypercholesteremia On: 8-Abq-233344:10 Request Comments: to be done in 6 months post life style changes. Thin prep Pap (75132)Indication: Well Female (V72.31) (II) On: 0-Xep-127587:07 Request LIPID PANEL (35539)Indication: Screening for hyperlipidemia On: :32 Request PTT (ACTIVATED PARTIAL THROMBOPLASTIN TIME) (19316)Indication: Irregular menstrual cycle On: :28 Request PT (PROTHROMBIN TIME) (62285)Indication: Irregular menstrual cycle On: :28 Request PROLACTIN (41983)Indication: Irregular menstrual cycle On: :28 Request METABOLIC PANEL, COMPREHENSIVE (10402)Indication: Irregular menstrual cycle On: :28 Request TSH (30616)Indication: Irregular menstrual cycle On: :28 Request CBC (AUTO) (77792)Indication: Irregular menstrual cycle On: : Request Planned Encounters Medical; 3 Month FU - On: 25-Jan-2018 11:15 [facility] Cher Sampson CNP, CNP, Mary E Planned Procedures DEXA SCAN AXIAL SKELETON (03895)By: On: 21-Oct-2017 Intent Cher Sampson CNP, CNP, Mary E SCREENING DIGITAL TOMOSYNTHESIS OF On: 05-Aug-2017 Intent BREAST (79305)By: Cher Sampson CNP, CNP, Mary E Aerosol Treatment (33673)By: Camilla On: 16-Jun-2017 Intent Cher ANNE CNP, Mary E Spirometry (57064)By: Camilla ANNE, On: 16-Jun-2017 Intent Cher King CNP SCREENING DIGITAL TOMOSYNTHESIS OF On: 30-Jul-2016 Intent BREAST (43896)By: Wanda Cole DO Aerosol Treatment (76615)By: Perlitaesa On: 09-Jul-2016 Intent Cher ANNE CNP, Mary E Solu -Medrol Injection, 125 mg On: 09-Jul-2016 Intent (J2930)By: Cher Sampson CNP, CNP, Mary E Aerosol Treatment (51308)By: Jarrett On: 09-Jul-2016 Intent Florence SMITH MRI OF THORACIC SPINE WITHOUT On: 30-Nov-2015 Intent CONTRAST (69949)By: Cher Sampson CNP, CNP, Mary E Radiology - Cervical SpineBy: Camilla On: 16-Nov-2015 Intent Cher ANNE CNP, Mary E PHYSICAL THERAPY EVALUATION On: 16-Nov-2015 Intent (22433)By: Cher Sampson CNP, CNP, Mary E EMG, DYNAMIC SURFACE, 1-12 MUSCLE On: 16-Nov-2015 Intent (21676)By: Cher Sampson CNP, CNP, Mary E MAMMOGRAM BREAST BILATERAL On: 06-Jul-2015 Intent SCREENING DIGITAL (28177)By: Cher Sampson CNP, CNP, Mary E TDAP VACCINE >7 IM (78437)By: Camilla On: 09-Oct-2014 Intent Cher ANNE CNP, Mary E Comments: boostrixlot [id number] 10.9.15L Dltd, IMPrefilled syringeMegan PRATIBHA JarvisNVIS signed Solu -Medrol Injection, 125 mg On: 15-May-2014 Intent (J2930)By: Cher Sampson CNP Comments: lot [id number] 7.63122 mgright gmIMasSARAH CNP, Mary E Solu -Medrol Injection, 125 mg On: 04-Feb-2013 Intent (J2930)By: Cher Sampson CNP Comments: Lot: [id number]: 07/2015Amt: 125mgRoute: IMSite: RUOQ GlutealGiven by: SARAH Montoya CNP, Mary E Radiology - ChestBy: Camilla ANNE, On: 04-Feb-2013 Intent Cher King CNP Comments: call wet read to Edwin Sampson at [facility] Aerosol Treatment (34291)By: Camilla On: 04-Feb-2013 Intent Cher ANNE CNP, Mary E Eprescribed prescriptions On: 04-Feb-2013 Intent (G8553)By: Cher Sampson CNP, CNP, Mary E Aerosol Treatment (28397)By: Camilla On: 10-Jan-2013 Intent Cher ANNE CNP, Mary E Eprescribed prescriptions On: 10-Jan-2013 Intent (G8553)By: Tisha Salcedo BIOPSY OF SKIN LESION, SINGLE On: 30-Jun-2012 Intent (88717)By: Cher Sampson CNP Comments: area cleaned with betadine, small incision made, lipoma extracted in pieces, no bleeding, bandage applied Cher ANNE DRAIN SKIN ABSCESS, SIMPLE/SINGLE On: 30-Jun-2012 Intent (61043)By: Cher Sampson CNP, CNP, Mary E Eprescribed prescriptions On: 28-Jun-2012 Intent (G8553)By: Maggie Jarvis LPN Spirometry (80994)By: Camilla ANNE, On: 22-Dec-2011 Intent Cher King CNP Eprescribed prescriptions On: 22-Dec-2011 Intent (G8553)By: Cher Sampson CNP, CNP, Mary E Aerosol Treatment (58574)By: Camilla On: 10-Nov-2011 Intent Cher ANNE CNP, Mary E ELECTROCARDIOGRAM, COMPLETE (ECG) On: 15-Jan-2011 Intent (97641)By: Cher Sampson CNP Comments: sinus rhythm borderline T abnormalities Cher ANNE Bio Z (08067)By: Cher Sampson CNP On: 15-Jan-2011 Intent Cher Sampson CNP Comments: elevated systemic Vascular Resistance Index HIGH COMP EYE EXAMINATION, ESTAB PATIENT On: 18-Dec-2010 Intent (48387)By: Cher Sampson CNP, CNP, Mary E PHYSICAL THERAPY EVALUATION On: 12-Oct-2009 Intent (02811)By: Cher Sampson CNP, CNP, Mary E Toradol Injection, 30 mg On: 12-Oct-2009 Intent (J1885)By: Cher Sampson CNP Comments: Lot #: [id number] date: mount given: 30 mg/mlRoute: IMSite given: Left hipGiven by: Damián Voss RN CNP, Mary E Radiology - Cervical SpineBy: Camilla On: 12-Oct-2009 Intent Cher ANNE CNP, Mary E Nuclear Stress Test/Stress On: 28-Aug-2009 Intent SPECT/AdenosineBy: Cher Sampson CNP, CNP, Mary E Echo CompleteBy: hCer Sampson CNP On: 28-Aug-2009 Intent Cher Sampson CNP Vancoymcin 500mg/premixedBy: Fast On: 17-Aug-2009 Intent DO Kely Steel Comments: give total 1 gramLot #[id number]/12Site-left anticubitalDose1 gmgiven by:CDHIV Therapy wtxsyqfyn70D, 1 inchSite:left anticubital Tolerated: wellno redness or swelling, no s/s infiltration THER/PROPH/DIAG INJ, SC/IM On: 16-Aug-2009 Intent (80377)By: Cher Sampson CNP, CNP, Mary E Vancoymcin 500mg/premixedBy: Ciesa On: 16-Aug-2009 Intent Cher ANNE CNP, Mary E Comments: 1 gramDay #3 THER/PROPH/DIAG INJ, SC/IM On: 15-Aug-2009 Intent (58348)By: Cher Sampson CNP, CNP, Mary E Vancoymcin 500mg/premixedBy: Ciesa On: 15-Aug-2009 Intent Cher ANNE CNP, Mary E Comments: Lot #[id number]-right anticubital given by:CDH Vancoymcin 500mg/premixedBy: Ciesa On: 15-Aug-2009 Intent Cher ANNE CNP, Mary E Comments: IV Therapy reused site from 08/14/09 22G, 1 inchSite: right anticubitalTolerated: wellno redness or swelling, no s/s infiltration DRAIN SKIN ABSCESS, SIMPLE/SINGLE On: 14-Aug-2009 Intent (84111)By: Cher Sampson CNP, CNP, Mary E Vancoymcin 500mg/premixedBy: Ciesa On: 14-Aug-2009 Intent Cher ANNE CNP, Mary E THER/PROPH/DIAG INJ, SC/IM On: 13-Aug-2009 Intent (33044)By: Cher Sampson CNP, CNP, Mary E Rocephon Injection, 1 Gm On: 13-Aug-2009 Intent (J0696)By: Cher Sampson CNP, CNP, Mary E CT - AbdomenBy: Cher Sampson CNP On: 30-Jan-2009 Intent Camilla ANNE Cynthia Radiology - Abdomen SeriesBy: Camilla On: 16-Jan-2009 Intent Cher ANNE CNP Cynthia Toradol Injection, 30 mg On: 09-Feb-2008 Intent (J1885)By: Cher Sampson CNP Comments: Amt: 30mgLot: [id number]: 12/2008Route: IMSite: right deltoid (per pt request)Tolerated: wellGiven By: SARAH Farrell CNP Cynthia Toradol Injection, 30 mg On: 22-Oct-2006 Intent ([id number])By: Wanda Cole DO Comments: Lot #:[id number] date: given:30mg/mlRoute: IMSite given:left deltoidGiven by: nidia smith MAMMOGRAM, SCREENING, BOTH BREASTS On: 04-Mar-2006 Intent ([id number])By: TOI HOPKINS CNP Ultrasound - PelvisBy: SANDEEP ANNE, On: 04-Mar-2006 Intent TOI Planned Medications INJECTION, METHYLPREDNISOLONE SODIUM SUCCINATE, UP TO 125 MG Ordered: 04-Feb-2013 Pending Cher Sampson CNP, CNP Cynthia INJECTION, METHYLPREDNISOLONE SODIUM SUCCINATE, UP TO 125 MG Ordered: 15-May-2014 Pending Cher Sampson CNP, CNP Cynthia INJECTION, METHYLPREDNISOLONE SODIUM SUCCINATE, UP TO 125 MG Ordered: 09-Jul-2016 Pending Cher Sampson CNP, CNP Cynthia Instructions Name Dates Details Nonsmoker : [...] : Patient Instructions Indication: Hypercholesteremia Vaccine for [id number] with poliomyelitis : How to access health information online Indication: Vaccine for klebwussks-rvyyaoh-ddukttfst with poliomyelitis Vaccine for qbscblzhod-bsefizn-thabzenso with poliomyelitis : How to access health information online - Detail Indication: Vaccine for wciraecfvs-cbsemkf-dxqpoozmt with poliomyelitis Vaccine for fvfemmxucx-ceyuyqq-azpcmdggq with poliomyelitis : Patient Instructions Indication: Vaccine for rcyugfqmkn-qpkgmtr-pemdyeqjg with poliomyelitis Hypercholesteremia : Patient Instructions Indication: Hypercholesteremia Wheezing : Patient Instructions Indication: Wheezing Cough : Patient Instructions Indication: Cough Lipoma of lower extremity : Patient Instructions Indication: Lipoma of lower extremity Sebaceous cyst : Patient Instructions Indication: Sebaceous cyst Hypercholesteremia : Patient Instructions Indication: Hypercholesteremia Encounters Office Visit On: 21-Oct-2017 8:09 Encounter Reason: [...] was stung last w End: 22-Oct-2006 16:16 agdaagux by a bee.). The course has been [...] Gerd ([phone]) [facility] [employer] [place] [facility] [place]; a guarantor
--- OUTSIDE RECORDS SUMMARY | 2018-05-25 02:31 | XMS RPT_ITS ---
:1965 Author Organization [place] Support Name Relationship Address Phone RYAN GILBERT Unavailable [address] + [place] [address] CASPER KOEHLER Unavailable [address] + [place] [address] [facility] Unavailable [address] + [place] [address] RYAN GILBERT Unavailable [address] + [place] [address] CASPER KOEHLER Unavailable [address] + [place] [address] [facility] Unavailable [address] + [place] [address] RYAN GILBERT Unavailable [address] + [place] [address] CASPER KOEHLER Unavailable [address] + [place] [address] [facility] Unavailable [address] + [place] [address] RYAN GILBERT Unavailable [address] + [place] [address] CASPER KOEHLER Unavailable [address] + [place] [address] [facility] Unavailable [address] + [place] [address] CASPER KOEHLER Unavailable [address] + [place] [address] [facility] Unavailable [address] + [place] [address] RYAN GILBERT Unavailable [address] + [place] [address] [address]ISA [address] + [place] [address] [facility] Unavailable [address] + [place] [address] RYAN GILBERT Unavailable [address] + [place] [address] ZAKIACASPER RIVERA Unavailable [address] + [place] [address] [facility] Unavailable [address] + [place] [address] RYAN GILBERT Unavailable [address] + [place] [address] [address]ISA [address] + [place] [address] [facility] Unavailable [address] + [place] [address] RYAN GILBERT Unavailable [address] + [place] [address] ZAKIA, CASPER Unavailable [address] + [place] [address] [facility] Unavailable [address] + [place] [address] RYAN GILBERT Unavailable [address] + [place] [address] ZAKIACASPER RIVERA Unavailable [address] + [place] [address] [facility] Unavailable [address] + [place] [address] RYAN GILBERT Unavailable [address] + [place] [address] ZAKIA [address]PER Un[address] + [place] [address] [facility] Unavailable [address] + [place] [address] RYAN GILBERT Unavailable [address] + [place] [address] ZAKIA CASPER Un[address] + [place] [address] [facility] Unavailable [address] + [place] [address] RYAN GILBERT Unavailable [address] + [place] [address] CASPER KOE[address]ER Un[address] + [place] [address] [facility] Unavailable [address] + [place] [address] RYAN GILBERT Unavailable [address] + [place] [address] CASPER KOEHLER Un[address] + [place] [address] [facility] Unavailable [address] + [place] [address] RYAN GILBERT Unavailable [address] + [place] [address] CASPER KOEHLER Un[address] + [place] [address] [facility] Unavailable [address] + [place] [address] Care Team Providers Name Role Phone Cher Sampson Attending Unavailable BaljinderaCher Referring Unavailable BaljinderaCher Consulting Unavailable Edgar Rincon Attending Unavailable Edgar Rincon Referring Unavailable Ciesa, Cher Primary Care Unavailable Juan José Lutz Attending Unavailable Oleghe, Efewongbe Primary Care Unavailable Oleghe, Efewongbe Referring Unavailable Dae Osman [facility] Attending Unavailable Oleghe, Efewongbe Referring Unavailable Juan José Lutz Attending Unavailable Juan José Lutz Referring Unavailable Oleghe, Efewongbe Primary Care Unavailable Juan José Lutz Consulting Unavailable Abby Benjamin Attending Unavailable Oleghe, Efewongbe Primary Care Unavailable Abby Benjamin Referring Unavailable Oleghe, Efewongbe Attending Unavailable Cristianoghe, Efewongbe Referring Unavailable Cimoiraa Cher Attending Unavailable Perlitaesa, Cher Referring Unavailable Ciesa, Cher Primary Care Unavailable Donnie Guzmán Attending Unavailable Cher Sampson Referring Unavailable Ciesa, Cher Primary Care Unavailable Susu Bergeron Attending Unavailable Susu Bergeron Referring Unavailable Ciesa, Cher Primary Care Unavailable Susu Bergeron Attending Unavailable Susu Bergeron Referring Unavailable Cher Sampson Primary Care Unavailable Ciesluis alberto, Cher Attending Unavailable Ciesluis alberto, Cher Primary Care Unavailable ASSESSMENT, HEALTH RISK Attending Unavailable ASSESSMENT, HEALTH RISK Referring Unavailable Cher Sampson Primary Care Unavailable Ciesluis alberto, Cher Attending Unavailable Camilla, Cher Primary Care Unavailable Camilla, Cher Attending Unavailable Ciesluis alberto, Cher Referring Unavailable Camilla, Cher Primary Care Unavailable Nurse, Surgery Attending Unavailable Camilla, Cher Referring Unavailable PROBLEMS PROBLEMS DATE TYPE CONDITION / CODE ATTENDING STATUS SOURCE Unknown M48.00 - Spinal stenosis, Dae Osman Active [facility] site unspecified / [facility] M48.00(ICD-10) Hospital Repository Unknown M50.20 - Other cervical Cher Sampson Active [facility] disc displacement, Community unspecified cervical Hospital region / M50.20(ICD-10) Repository Unknown 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(ICD-10) Hospital Repository Unknown E79.0 - Hyperuricemia Cher Sampson Active [facility] without signs of [facility] inflammatory arthritis Hospital and tophaceous disease / Repository E79.0(ICD-10) Unknown Z12.31 - Encounter for Cher Sampson Active [place] 8 screening mammogram for [facility] malignant neoplasm of Hospital breast / Z12.31(ICD-10) Repository Unknown M79.604 - Pain in right Rubio Active [place] [facility] leg / M79.604(ICD-10) [facility] Repository Unknown J02.9 - Acute Donnie Guzmán Active [place] 8 pharyngitis, unspecified Community / J02.9(ICD-10) Hospital Repository Unknown J06.9 - Acute upper [place]fer[place] Donnie Active [place] 8 respiratory infection, Community unspecified / Hospital J06.9(ICD-10) Repository PROCEDURES PROCEDURES No Procedure Records FoundRESULTS RESULTS CBC-COMPLETE BLOOD CNT Collected: 03/22/2018 Status: F Source: [place] NO DIFF 2:26 PM [facility] REPOSITORY TYPE CODE TESTS RESULT OUT OF RANGE REFERENCE UNITS LAB L100.1000 4.4-11.0 K/mm3 Normal WBC 6.4 LAB L100.1200 4.2-5.4 M/mm3 Normal RBC 4.82 LAB L100.1300 12.0-15.0 g/dl Normal HGB 14.8 LAB L100.1400 37-47 % Normal HCT 43.2 LAB L100.1500 81-99 fL Normal MCV 89.6 LAB L100.1600 27.0-32.0 pg Normal MCH 30.7 LAB L100.1700 32-36 g/gl Normal MCHC 34.3 LAB L100.1810 11.6-14.6 % Normal RDW CV 12.5 LAB L100.1820 35.1-43.9 fl Normal RDW SD 40.7 LAB L100.1900 150-450 K/mm3 Normal PLT 273 LAB L100.2000 6.2-12.0 fl Normal MPV 10.2 Performed By: #### L100.0500 #### [facility] [address] [place], [place], [address] URINALYSIS, ROUTINE Collected: 03/22/2018 Status: F Source: [place] (DIPSTICK) 2:26 PM [facility] REPOSITORY Order Comment: How was Urine Obtained? CLEAN CATCH TYPE CODE TESTS RESULT OUT OF RANGE REFERENCE UNITS LAB L400.3000 Yellow COLOR Normal Yellow LAB L400.3050 Clear Normal CLARITY Sl. Cloudy LAB L400.3200 Normal mg/dl Normal GLUCOSE, UR Normal LAB L400.3300 Negative mg/dL Normal BILIRUBIN URINE Negative LAB L400.3400 Negative mg/dl Normal KETONE UR Negative LAB L400.3465 1.002-1.030 Normal SP.GR. DIPSTX 1.010 LAB L400.3550 5.0 - 8.0 pH UR Normal 8.0 LAB L400.3600 Negative mg/dl PROT Normal DIPSTX Negative LAB L400.3700 Normal mg/dl Normal UROBILI Normal LAB L400.3750 Negative Normal NITRITE UR Negative LAB L400.3780 Negative /ul Normal OCCULT BLOOD-UR Negative LAB L400.3800 Negative /ul LEUK Normal ESTERASE Negative Performed By: #### L400.2010 #### [facility] [address] [place], [place], [address] COMPREHENSIVE METABOLIC Collected: 03/22/2018 Status: F Source: [place] 2:26 PM [facility] REPOSITORY TYPE CODE TESTS RESULT OUT OF RANGE REFERENCE UNITS LAB L501.0100 74-106 mg/dL High GLU 110 Result Comment: Fasting Glucose result from 100 to 125 mg/dL suggests IMPAIRED HOMEOSTASIS per A.D.A. criteria. Please note revised GLUCOSE reference range effective 2017. LAB L501.1000 7-18 mg/dL Normal BUN 15 LAB L501.1100 0.55-1.02 mg/dL Normal CREAT,SERUM 0.85 Result Comment: The validity of the calculated GFR AND GFRAA in patients over 70 years has not been determined. Clinical correlation is essential. LAB L501.1110 >60 mL/min Normal EST GFR 75 Result Comment: Non- GFR Calc LAB L501.1115 >60 mL/min Normal EST GFR - AA 91 Result Comment: GFR Calc LAB L501.1300 10-20 RATIO Normal BUN/CRE 17.6 LAB L501.1500 6.4-8.2 g/dL T Normal PROT 6.7 LAB L501.1800 3.2-5.0 g/dL Normal ALB 3.5 LAB L501.1950 2.2-4.2 g/dL Normal GLOB 3.2 LAB L501.2000 0.9-2.4 RATIO Normal A/G 1.1 LAB L501.2200 8.5-10.1 mg/dL CA Normal 8.6 LAB L501.4100 15-37 U/L Normal AST 23 LAB L501.4305 45-117 U/L Normal ALK P 79 LAB L501.4405 13-56 U/L Normal ALT 37 LAB L501.4600 0.20-1.00 mg/dL T Normal BILI 0.40 LAB L501.5300 136-145 mmol/L NA Normal 140 LAB L501.5600 3.5-5.1 mmol/L K Normal 4.0 LAB L501.5900 98-107 mmol/L CL Normal 106 LAB L501.6100 21.0-32.0 mmol/L Normal CO2 26.0 LAB L501.6200 5-15 Normal GAP 8 Performed By: #### L500.4050 #### [facility] [address], [address] OPERATIVE REPORT - Observed: 03/10/2018 Status: F Source: [place] ENDOSCOPY 7:25 AM [facility] REPOSITORY [facility] Medical Records Department [address] [place] [address] Operative Report - Endoscopy MR#: [id number] Acct: [id number] Name: VONNIE GILBERT Rep #: [id number] : 1965 52 From: Juan José Lutz MD PCP: Santhosh Abbott MD [place] [facility] [place] Name: Vonnie Gilbert Procedure Date: 03/10/2018 6:31 AM Date of : 1965 Age: 52 Procedure: Colonoscopy Indications: Screening for colorectal malignant neoplasm Providers: Juan José Lutz MD Medicines: See the Anesthesia note for documentation of the administered medications Patient Profile: This is a 52 year old female. Refer to note in patient chart for documentation of history and physical. Last Colonoscopy: none. The patient's first colonoscopy is today. Complications: No immediate complications. Procedure: Pre-Anesthesia Assessment: - Prior to the procedure, a History and Physical was performed, and patient medications and allergies were reviewed. The patient's tolerance of previous anesthesia was also reviewed. The risks and benefits of the procedure and the sedation options and risks were discussed with the patient. All questions were answered, and informed consent was obtained. Prior Anticoagulants: The patient has taken no previous anticoagulant or antiplatelet agents. ASA Grade Assessment: II - A patient with mild systemic disease. After reviewing the risks and benefits, the patient was deemed in satisfactory condition to undergo the procedure. After I obtained informed consent, the scope was passed under direct vision. Throughout the procedure, the patient's blood pressure, pulse, and oxygen saturations were monitored continuously. The colonoscope was introduced through the anus and advanced to the cecum, identified by appendiceal orifice and ileocecal valve. The colonoscopy was performed without difficulty. The patient tolerated the procedure well. The quality of the bowel preparation was good. Scope In: 7:06:29 AM Scope Withdrawal Time 0 hours 7 minutes 14 seconds Scope Out: 7:19:45 AM Total Procedure Duration Time 0 hours 13 minutes 16 seconds Findings: A few small-mouthed diverticula were found in the sigmoid colon. Non-bleeding internal hemorrhoids were found during retroflexion. The hemorrhoids were mild and small. The exam was otherwise without abnormality. Impression: - Diverticulosis in the sigmoid colon. - Non-bleeding internal hemorrhoids. - The examination was otherwise normal. - No specimens collected. Recommendation: - Discharge patient to home. - Resume previous diet. - Continue present medications. - Repeat colonoscopy in 10 years for screening purposes. - Return to primary care physician at appointment to be scheduled. Procedure Code(s): --- Professional --- 06818, Colonoscopy, flexible; diagnostic, including collection of specimen(s) by brushing or washing, when performed (separate procedure) Diagnosis Code(s): --- Professional --- Z12.11, Encounter for screening for malignant neoplasm of colon K64.8, Other hemorrhoids K57.30, Diverticulosis of large intestine without perforation or abscess without bleeding CPT copyright 2017 [employer]. All rights reserved. The codes documented in this report are preliminary and upon health information coder review may be revised to meet current compliance requirements. MD Juan José Hickman MD 03/10/2018 7:24:54 AM This report has been signed electronically. Number of Addenda: 0 Note Initiated On: 03/10/2018 6:31 AM 03/10/1825 Date Juan José Lutz MD Cosigner Signature: Date (if indicated) CC: Juan José Lutz MD; Santhosh Abbott MD Date Dictated: 03/10/1831 Date Transcribed: Daycare Provider: URSULA Signed HISTORY AND PHYSICAL Observed: 03/10/2018 Status: F Source: [place] EXAM 7:22 AM [facility] REPOSITORY [facility] Medical Records Department [address] [place] [address] [place] [address] History and Physical 03/10/18719 MR#: [id number] Acct: [id number] Name: VONNIE GILBERT Rep #: [id number] : 1965 52 From: Juan José Lutz MD PCP: Santhosh Abbott MD [place] [facility] [place]: [place] [address] Problem List (1) Screening for colon cancer Status: Acute History of Present Illness Date of Admission: 03/10/18 The patient is a 52 year old F who presents for screening colonoscopy. Past Medical History Past Medical History (Chronic Problems): Chronic Problems (Last Updated 03/05/18 @ 10:54 by Dia Padron) High triglycerides (Chronic) High cholesterol (Chronic) Asthma (Chronic) HTN (hypertension) (Chronic) Medical History: Medical History (Last Reviewed 03/10/18 @ 07:21 by Juan José Lutz MD) High triglycerides (Chronic) E78.1 High cholesterol (Chronic) E78.00 Asthma (Chronic) J45.909 HTN (hypertension) (Chronic) I10 Intervertebral disc protrusion C6 AND C7 Allergies No Known Allergies Allergy (Verified 03/08/18 09:10) Home Medications: Ambulatory Orders Medication Instructions Recorded Estradiol [Estrace] 2 mg PO DAILY 10/04/16 atorvastatin 20 mg tablet 20 mg PO DAILY #90 tab 03/05/18 Surgical History: Surgical History (Last Reviewed 03/10/18 @ 07:21 by Juan José Lutz MD) H/O: hysterectomy Z98.890, Z90.710 2012 Hx of cholecystectomy Z98.890, Z90.49 2003 Smoking Status: Never smoker Tobacco Use: Non-smoker - *Family History Maternal Family History: Family History (Last Reviewed 03/10/18 @ 07:21 by Juan José Lutz MD) Other Hypertension Review of Systems Cardiovascular: Denies: Chest Pain, Chest Pressure, Chest Tightness, Palpitations Respiratory: Denies: Cough, Hemoptysis, Shortness of breath at rest, Shortness of breath upon exertion, Wheezing Gastrointestinal: Denies: Abdominal Pain, Constipation, Diarrhea, Hematemesis, Nausea, Melena, Vomiting VTE Information - Inpt Only VTE Present on Admission: No VTE Mechan Device Prophylaxis: None VTE Pharm Prophylaxis ordered?: No Reason prophylaxis not ordered:: Treatment Not Indicated Patient Problems: Active and Suspected Problems (Last Updated 03/05/18 @ 10:54 by Dia Padron) Screening for colon cancer (Acute) - Physical Exam General: Alert, Oriented x3 Lungs: Clear to auscultation Cardiovascular: Regular rate, Regular Rhythm, No murmurs Abdomen: Bowel Sounds Present, Soft, Non Tender, Non-Distended Vital Signs Temp Pulse Resp BP Pulse Ox 97.0 F L 100 16 168/93 H 99 03/10/18 06:15 03/10/18 06:15 03/10/18 06:15 03/10/18 06:15 03/10/18 06:15 Oxygen Delivery Method Room Air Weight: 233 lb 6.4 oz Body Mass Index (BMI) 34.4 Assessment/Plan All Active Problems (Last Updated 03/05/18 @ 10:54 by Dia Padron) Screening for colon cancer (Acute) URI (upper respiratory infection) (Acute) RUQ abdominal pain (Acute) My plan is to perform a colonoscopy. Risk benefits have been reviewed the patient at the time of her procedure all questions asked were answered and she agrees to proceed. 03/10/18721 <Electronically signed by Juan José Lutz MD> Date Juan José Lutz MD [facility] Signature: Date (if applicable) CC: Juan José Lutz MD; Santhosh Abbott MD Signed INTERNAL MEDICINE Observed: 03/05/2018 Status: F Source: [place] OFFICE VISIT 1:53 PM [facility] [address] [place] [address] OFFICE VISIT Date of Service: 03/05/18 MR#: [id number] Acct: [id number] Name: VONNIE GILBERT Rep #: [id number] : 1965 Provider: Dae Osman NP Age/Sex: 52/F Location: [facility] Status: Signed Intake Vital Signs03/05/18 Height 5 ft 9 in 03/05/18 Weight: 237 lb 03/05/18 Body Mass Index (BMI) 34.9 03/05/18 Blood Pressure 186/120 H 03/05/18 Blood Pressure Location Lt brachial 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 Chief Complaint: Wants Surgical referral Dr Isac Carrasco AND Massage therapy Is patient in pain?: Yes (Neck pain C6 C7) Pain scale (1-10): 7 Allergies No Known Allergies Allergy (Verified 03/05/18 10:43) Medications Estradiol [Estrace] 2 mg PO DAILY 10/04/16 [History Confirmed 03/05/18] albuterol sulfate HFA 90 mcg/actuation aerosol inhaler 1 puff INHALATION Q6H PRN 03/05/18 [History Confirmed 03/05/18] atorvastatin 20 mg tablet 20 mg PO DAILY #90 tab 03/05/18 [Rx Confirmed 03/05/18] icosapent ethyl 1 gram capsule 2 g PO BID #360 cap 03/05/18 [Rx Confirmed 03/05/18] nebivolol 20 mg tablet 20 mg PO DAILY #90 tab 03/05/18 [Rx Confirmed 03/05/18] PFSH Medical History High triglycerides (Chronic) High cholesterol (Chronic) Asthma (Chronic) HTN (hypertension) (Chronic) Intervertebral disc protrusion (Acute) Surgical History H/O: hysterectomy (Acute) Hx of cholecystectomy (Acute) Family History Other Hypertension Social History Smoking Status: Never smoker alcohol intake: never substance use type: does not use what type of physical activity do you participate in: walking HPI HPI Chief Complaint: Wants Surgical referral Dr Isac Carrasco AND Massage therapy Details: VONNIE GILBERT, is a 52 F who presents to the office today for an acute visit of needing a referral to orthospine. She is new to our establishment and has a past medical history of hyperlipidemia, asthma, hypertension, and spinal stenosis of C6 and C7 currently seeing pain management Doctor Mckenzie for chronic back pain. The patient states that she has suffered with chronic neck pain for quite some time now and had a recent MRI done which showed spinal stenosis at C6 and C7 and is requesting a referral to Dr. Carrasco at [facility]. She already sees Doctor Mckenzie her pain management and has set up an appointment with Dr. Carrasco later this month and is needing a referral due to insurance reasoning. She denies any radiculopathy and denies any worsening of her chronic neck pain. She does bring up her hypertension and states that her blood pressures have been slowly becoming more elevated. Denies any symptomatic hypertension however. She also brings up her high triglycerides and wonders if there is anything that can be done for her to lower her triglycerides. She denies any other acute concerns at this time. The patient otherwise denies any fever, chills, nausea, vomiting, shortness of breath, chest pain or pressure, palpitations, orthopnea, lower extremity edema, syncope or presyncopal episodes. ROS Const Constitutional: No chills, fatigue, fever(s), frequent falls, malaise, weakness, sleep problems or change in appetite Eyes Eyes: No blurry vision, change in vision, double vision, discharge or visual disturbances ENT ENT: Positive for neck pain; no abnormal hearing, ear pain, ear pressure, tinnitus or dizziness/vertigo Resp Respiratory: No cough, shortness of breath or wheezing Cardio Cardiology: No chest pain at rest, chest pain with exertion, shortness of breath, dyspnea on exertion, generalized swelling, irregular heart rhythm, lightheadedness, orthopnea, fast heart rate or palpitations Gastro GI: No abdominal pain, change in bowel habits, constipation, diarrhea, nausea/dyspepsia or vomiting Genitourinary-Female: No difficulty urinating, burning urination, painful urination, urinary incontinence, urinary frequency, urinary urgency, urinary hesitancy, urinary retention, Frequent nighttime urination/ nocturia, sexual problems, genital lesions, abnormal vaginal bleeding, pelvic pain, vaginal dryness, vaginal odor or Vaginal Itching Musc Musculoskeletal: Positive for neck pain; no joint pain, back pain, joint swelling, limited range of motion, numbness, tingling or muscle weakness Skin Skin: No change in skin color, itching, rash or wounds Breast Breast: No breast lump or breast pain Neuro Neurology: No frequent falls, weakness, visual disturbances, abnormal hearing, numbness, tingling, unsteady gait/balance, dizziness, loss of vision or memory loss Psych Psychiatric: No change in appetite, No memory loss, No anxiety, No depression, No Thoughts of harming yourself/Others Endo Endocrine: No fatigue, heat intolerance, increased thirst/drinking, increased hunger or increased urination Aller/Imm Allergy/Immunologic: No wheezing, itchy eyes or seasonal allergy symptoms Horacio/Lymp Hematologic/Lymphatic: No easy bleeding, easy bruising or enlarged lymph nodes Exam Const General: cooperative, comfortable, no acute distress Nutritional Appearance: average body habitus, well nourished Orientation: alert, oriented x3 Limitations: mental status not altered Resp Effort AND Inspection: normal respiratory effort, able to speak in complete sentences, normal respiratory pattern, symmetric chest movement, no audible wheezes, no cough Auscultation: Bilateral: Clear to Auscultation Cardio Palpation: normal PMI Rate: regular rate Heart Sounds: S1 normal, S2 normal, normal S1 and S2, no click, no gallops, no murmurs, no rubs Musc Musculoskeletal: No joint tenderness, decreased ROM or muscle weakness Other: tenderness with palpation of posterior neck Skin General: no rashes or lesions noted, elasticity normal, turgor normal Lesions: no lesions Rashes: no rashes Neuro General: alert, awake, oriented x3, CN's II-XI intact bilaterally Speech: speech normal Gait: normal gait Motor: muscle tone normal throughout Extrem General: normal to inspection, normal gait, no edema, no pedal edema Psych Appearance: grossly normal Mental Status: mental status grossly normal Affect: normal affect Attitude: cooperative Thought Process: normal Assessment AND Plan 1. HTN (hypertension) I10 Plan Hypertension: Blood pressure is suboptimal at this time. Will make changes to current medication regimen which include the addition of increasing to 20 mg daily. Baseline labs reviewed. Educated patient on the potential side effects of the new medication and to keep a log of their blood pressures at home. Discussed risk factor reduction and lifestyle modifications. Discussed dietary changes that should be considered which include reducing the amount of sodium intake. Patient instructed to follow up in 4 weeks for hypertension follow up visit and establishment visit. 2. Hyperlipidemia E78.5 Plan Patient does have hypertriglyceridemia is already on statin. Vascepa to her pharmacy and patient to continue with diet, exercise, and lifestyle modifications. 3. Spinal stenosis in cervical region M48.02 Plan Recent MRI reviewed showed spinal stenosis at C6 and C7. Per patient's request a referral to Dr. Carrasco was placed. She will continue with pain management and she will [facility] Patient to follow-up in 4-6 weeks or sooner if needed for establishment visit Plan Detail Other Orders Referrals: Other Medications New: icosapent ethyl (Vascepa) administer with food2 grams (2 x 1 gram) PO BID 360 caps 3RF ; swallow whole; do not crush/chew/dissolve/break /cut Changed: Coding Level of Care Code Off vis,new,level 3 Diagnoses HTN (hypertension) I10 Hyperlipidemia E78.5 Spinal stenosis in cervical region M48.02 03/05/18 1353 <Electronically signed by Dae BOND> Date Dae BOND Cosigner Signature: Date (if applicable) CC: DISCHARGE SUMMARY Observed: 02/25/2018 Status: F Source: [place] 11:39 AM [facility] REPOSITORY [facility] Medical Records Department [address] [place] [address] Discharge Summary 02/25/18 1137 MR#: [id number] Acct: [id number] Name: VONNIE GILBERT Rep #: [id number] : 1965 52 From: Mariangel Newman PCP: Cher Sampson NP Status: REG RCR Y Location: [facility] Discharge Summary: Initial Evaluation: 03/31/2017 Diagnosis: Herniated Cervical Disc No. of Visits: Date of last visit: 02/24/2018 Goals: Decreased neck pain Decreased muscle tension This patient is being discharged from our care at the [facility]. Thank you, Mariangel Newman, MINI 02/25/18 1139 <Electronically signed by Mariangel Newman > Date Mariangel Murrieta Signature (if applicable): Date CC: Mariangel Newman; Cher Sampson NP Signed SPINE CERVICAL Observed: 02/22/2018 Status: F Source: [place] (ROUTINE) 7:12 AM [facility] REPOSITORY [facility] Imaging Services [address] [place] [address] Spine Cervical (Routine) MR#: [id number] Acct: [id number] Name: VONNIE GILBERT Rep #: [id number] : 1965 F 52 From: Janeth Diaz PCP: Cher Sampson NP Status: REG CLI Study: Spine Cervical (Routine) Date of Exam: 02/22/18 Exam# [id number] Ordering Dr: Edgar Rincon MD STUDY: MRI CERVICAL SPINE WITHOUT CONTRAST REASON FOR [...] disc herniation, central canal or foraminal stenosis. C4-5: There is minimal disc space narrowing and endplate spondylosis. There is no significant disc herniation, central canal or foraminal stenosis. C5-6: There is mild disc space narrowing and endplates spondylosis. There is a minimal disc osteophyte complex without significant central canal stenosis. There is no foraminal stenosis. Findings are stable since prior examination C6-7: There is moderate disc space narrowing and endplates spondylosis. There is slightly decreased disc osteophyte complex with mild central canal stenosis now. There is uncovertebral arthropathy with minimal foraminal stenosis. C7-T1: Normal endplates. Normal disc height, signal and morphology. Normal central canal and intervertebral neural foramina. Normal cervical cord. Normal visualized soft tissue structures. MRI/Spine Cervical (Routine) IMPRESSION: Decreased protrusion at C6/C7. Electronically Signed: Janeth Diaz MD at 9:22 EST Tel , Service support , CC: Cher Sampson GUSSET STITCHER; Edgar Rincon MD Daycare Provider: Signed LIPID PROFILE Collected: 01/19/2018 Status: F Source: [place] 10:25 AM [facility] REPOSITORY TYPE CODE TESTS RESULT OUT OF RANGE REFERENCE UNITS LAB L501.4900 200 mg/dL High CHOL 205 Result Comment: <200 mg/dL Desirable 200-240 mg/dL Borderline >240 mg/dL High Risk LAB L501.5000 mg/dL High TRIG 312 Result Comment: The drugs N-Acetylcysteine and Metamizole may falsely depress this assay. Serum Triglycerides Reference Interval Normal <150 mg/dL Borderline high 150 - 199 mg/dL High 200 - 499 mg/dL Very High > or = 500 mg/dL LAB L501.6400 mg/dL Normal HDL 46 Result Comment: The drugs N-Acetylcysteine and Metamizole may falsely depress this assay. Reference Range HDL <40 mg/dL Low HDL Cholesterol HDL >or= 60 mg/dL High HDL Cholesterol LAB L501.6500 0-130 mg/dL Normal LDL 97 LAB L501.6600 5-40 mg/dL High VLDL 62 Performed By: #### L500.4100, L501.1400 #### [facility] [address] [place], [place], [address] URIC ACID Collected: 01/19/2018 Status: F Source: [place] 10:25 AM [facility] REPOSITORY TYPE CODE TESTS RESULT OUT OF RANGE REFERENCE UNITS LAB L501.1400 2.6-6.0 mg/dL Normal URIC 5.8 Result Comment: The drugs N-Acetylcysteine and Metamizole may falsely depress this assay. Performed By: #### L500.4100, L501.1400 #### [facility] [address] [place], [address] DEXA BONE DENSITY Observed: 10/29/2017 Status: F Source: [place] STUDY 12:51 PM [facility] REPOSITORY [facility] Imaging Services [address] [place] [address] Dexa Bone Density Study MR#: [id number] Acct: [id number] Name: VONNIE GILBERT Rep #: [id number] : 1965 F 51 From: Pola García MD PCP: Cher Sampson NP Status: REG CLI Study: Dexa Bone Density Study Date of Exam: 10/29/17 Exam# [id number] Ordering Dr: Cher Sampson STUDY: DUAL ENERGY X-RAY ABSORPTIOMETRY / DXA REASON FOR EXAM: Female, 51 years old. The patient is postmenopausal. Loss of height. TECHNIQUE: Bone Mineral Density (BMD) measurements of lumbar spine and bilateral hips were obtained. COMPARISON: None. FINDINGS: Lumbar Spine (L1-L4): g/cm2 (1.278) / T-score (0.8) / Z-score (1.2) Findings are suggestive of normal bone density with a low fracture risk. Left Femur Total: g/cm2 (1.167) / T-score (1.3) / Z-score (1.7) Left Femoral Neck: g/cm2 (1.114) / T-score (0.5) / Z- score (1.3) Right Femur Total: g/cm2 (1.113) / T-score (0.8) / Z- score (1.3) Right Femoral Neck: g/cm2 (1.040) / T-score (0.0) / Z- score (0.8) BD/Dexa Bone Density Study IMPRESSION: The patient is considered normal as outlined below according to World Marshall Organization (WHO) criteria with a low fracture risk. Reference Information: The T-score is the number of standard deviations above or below the standard which is normal for young adults at their peak bone mineral density. The World Health Organization (WHO) interprets the T-scores as follows: Above -1 Normal bone density Between -1 and -2.5 Osteopenia Equal to / or below -2.5 Osteoporosis As a practical clinical guideline, osteopenia may be graded as follows: Mild -1 through -1.5 Moderate -1.6 through -2.0 Severe -2.1 through -2.4 The Z-score is the number of standard deviations above or below age-matched controls. A Z-score of less than -1.5 would be considered abnormal. References: 1. NIH Osteoporosis and Related Bone Diseases http://www.osteo.org 2. International Society for Clinical Densitometry http://www.iscd.org 3. National Osteoporosis Foundation http://www.nof.org Electronically Signed: Pola García MD at 15:46 EDT Tel [phone], Service support , CC: Cher Sampson NP Daycare Provider: Signed CBC, EMPLOYEE Collected: 10/07/2017 Status: F Source: [place] 11:05 AM [facility] REPOSITORY TYPE CODE TESTS RESULT OUT OF RANGE REFERENCE UNITS LAB L100.1000 4.4-11.0 K/mm3 Normal WBC 7.4 LAB L100.1200 4.2-5.4 M/mm3 Normal RBC 5.03 LAB L100.1300 12.0-15.0 g/dl High HGB 15.2 LAB L100.1400 37-47 % Normal HCT 45.3 LAB L100.1500 81-99 fL Normal MCV 90.1 LAB L100.1600 27.0-32.0 pg Normal MCH 30.2 LAB L100.1700 32-36 g/gl Normal MCHC 33.6 LAB L100.1810 11.6-14.6 % Normal RDW CV 12.6 LAB L100.1820 35.1-43.9 fl Normal RDW SD 41.0 LAB L100.1900 150-450 K/mm3 Normal PLT 251 LAB L100.2000 6.2-12.0 fl Normal MPV 10.4 LAB L100.2110 47-70 % Normal NEUT% 56.7 LAB L100.2210 19-41 % Normal LY% 32.4 LAB L100.2310 0-10 % Normal MONO% 7.7 LAB L100.2410 0-5 % Normal EO% 2.7 LAB L100.2510 0-1 % Normal BASO% 0.4 LAB L100.2620 2.0-7.7 X10 3/uL Normal Absolute Neut 4.2 LAB L100.2720 0.83-4.51 X10 3/ul Normal Absolute Lymph 2.40 Performed By: #### L100.0200 #### [facility] [address] [facility] [place], [place], [address] NICOTINE URINE DRUG Collected: 10/07/2017 Status: F Source: [place] SCREEN 11:05 AM [facility] REPOSITORY TYPE CODE TESTS RESULT OUT OF RANGE REFERENCE UNITS LAB L505.6250 TO BE Normal CONFIRMED Result Comment: CONFIRMATORY TESTING FOR ALL POSITIVE URINE DRUG SCREEN RESULTS WILL ONLY BE SENT OUT UPON PHYSICIAN ORDER. The results of Urine Drug Screen methods provide only preliminary analytical test results. A more specific alternate chemical method must be used in order to obtain a confirmed analytical result. Gas chromatography/mass spectrometery (GC/MS) is the preferred confirmatory method. Clinical consideration and professional judgement should be applied to any drug of abuse test result, particularly when preliminary positive results are used. LAB L505.6270 <200 ng/mL Normal COT DRG Negative SCREEN Result Comment: Cotinine is the first-stage metabolite of Nicotine. Performed By: #### L505.6240 #### [facility] [address] [place], [place], [address] URINALYSIS, EMPLOYEE Collected: 10/07/2017 Status: F Source: [place] 11:05 AM [facility] REPOSITORY TYPE CODE TESTS RESULT OUT OF RANGE REFERENCE UNITS LAB L400.3000 Yellow COLOR Normal Yellow LAB L400.3050 Clear Normal CLARITY Clear LAB L400.3200 Normal mg/dl Normal GLUCOSE, UR Normal LAB L400.3300 Negative mg/dL Normal BILIRUBIN URINE Negative LAB L400.3400 Negative mg/dl Normal KETONE UR Negative LAB L400.3465 1.002-1.030 Normal SP.GR. DIPSTX 1.020 LAB L400.3550 5.0 - 8.0 pH UR Normal 5.0 LAB L400.3600 Negative mg/dl PROT Normal DIPSTX Negative LAB L400.3700 Normal mg/dl Normal UROBILI Normal LAB L400.3750 Negative Normal NITRITE UR Negative LAB L400.3780 Negative /ul Normal OCCULT BLOOD-UR Negative LAB L400.3800 Negative /ul LEUK Normal ESTERASE Negative Performed By: #### L400.0100 #### [facility] [address] [place], [address] EMPLOYEE PROFILE Collected: 10/07/2017 Status: F Source: [place] 11:05 AM [facility] REPOSITORY TYPE CODE TESTS RESULT OUT OF RANGE REFERENCE UNITS LAB L501.0100 74-106 mg/dL Normal GLU 93 Result Comment: Please note revised GLUCOSE reference range effective 2017. LAB L501.1000 7-18 mg/dL Normal BUN 16 LAB L501.1100 0.55-1.02 mg/dL Normal CREAT,SERUM 0.87 Result Comment: The validity of the calculated GFR AND GFRAA in patients over 70 years has not been determined. Clinical correlation is essential. LAB L501.1110 >60 mL/min Normal EST GFR 73 Result Comment: Non- GFR Calc LAB L501.1115 >60 mL/min Normal EST GFR - AA 89 Result Comment: GFR Calc LAB L501.1300 10-20 RATIO Normal BUN/CRE 18.4 LAB L501.1400 2.6-6.0 mg/dL High URIC 7.2 Result Comment: The drugs N-Acetylcysteine and Metamizole may falsely depress this assay. LAB L501.1500 6.4-8.2 g/dL Normal T PROT 7.2 LAB L501.1800 3.2-5.0 g/dL Normal ALB 3.5 LAB L501.1950 2.2-4.2 g/dL Normal GLOB 3.7 LAB L501.2000 0.9-2.4 RATIO Normal A/G 0.9 LAB L501.2200 8.5-10.1 mg/dL Normal CA 8.7 LAB L501.2300 2.5-4.9 mg/dL Normal PHOS 3.0 LAB L501.4100 15-37 U/L Normal AST 23 LAB L501.4305 45-117 U/L Normal ALK P 86 LAB L501.4405 13-56 U/L Normal ALT 34 LAB L501.4600 0.20-1.00 mg/dL Normal T BILI 0.50 LAB L501.4700 0.00-0.30 mg/dL Normal D BILI 0.10 LAB L501.4900 200 mg/dL Normal CHOL 179 Result Comment: <200 mg/dL Desirable 200-240 mg/dL Borderline >240 mg/dL High Risk LAB L501.5000 mg/dL High TRIG 329 Result Comment: The drugs N-Acetylcysteine and Metamizole may falsely depress this assay. Serum Triglycerides Reference Interval Normal <150 mg/dL Borderline high 150 - 199 mg/dL High 200 - 499 mg/dL Very High > or = 500 mg/dL LAB L501.5300 136-145 mmol/L Normal NA 138 LAB L501.5600 3.5-5.1 mmol/L Normal K 4.4 LAB L501.5900 98-107 mmol/L Normal CL 104 LAB L501.6100 21.0-32.0 mmol/L Normal CO2 25.0 LAB L501.6200 5-15 Normal 9 GAP LAB L501.6400 mg/dL Normal HDL 43 Result Comment: The drugs N-Acetylcysteine and Metamizole may falsely depress this assay. Reference Range HDL <40 mg/dL Low HDL Cholesterol HDL >or= 60 mg/dL High HDL Cholesterol LAB L501.6475 Normal CHOL:HDL 4.20 LAB L501.6500 0-130 mg/dL Normal LDL 70 LAB L501.6600 5-40 mg/dL High VLDL 66 LAB L504.2610 84-246 U/L Normal LDH 167 Performed By: #### L500.2900 #### [facility] [address] [place], [address] SCREENING MAMM (CAD), Observed: 08/20/2017 Status: F Source: [place] B[place] 5:17 PM [facility] REPOSITORY [facility] Imaging Services [address] [place] [address] SCREENING MAMM (CAD), BILAT MR#: [id number] Acct: [id number] Name: VONNIE GILBERT Rep #: [id number] : 1965 F 51 From: Pola García MD PCP: Cher Sampson NP Status: REG CLI Study: SCREENING MAMM (CAD), BILAT Date of Exam: 08/20/17 Exam# [id number] Ordering Dr: Cher Sampson MAMMOGRAPHY - BILATERAL SCREENING REASON FOR EXAM: Female, 51 years old. Routine annual screening examination. PERTINENT HISTORY: Aunt with breast cancer. TECHNIQUE: Digital bilateral breast mary (3D mammographic acquisition) in the CC and [...] delay biopsy of a clinically suspicious abnormality. [id number] Electronically Signed: Pola García MD at 12:57 EDT Tel [phone], Service support , CC: Cher Sampson NP Daycare Provider: Signed DOWNTIME REPORT Observed: 08/20/2017 Status: F Source: [place] 1:59 PM [facility] Medical Records Department [address] [place] [address] Downtime Report MR#: [id number] Acct: [id number] Name: VONNIE GILBERT R Rep #: [id number] : 1965 51 From: Jesse Carrasco PCP: Cher Sampson NP Status: REG CLI This patient was seen during an EMR downtime August 03, 2017 - August 10, 2017. This patient may have a combination of paper and electronic documentation or all paper documentation. All documentation is viewable within the e-chart portion of [employer] for each patient visit. DOWNTIME REPORT Observed: 08/19/2017 Status: F Source: [place] 2:54 PM [facility] REPOSITORY [facility] Medical Records Department [address] [place] [address] Downtime Report MR#: [id number] Acct: [id number] Name: VONNIE GILBERT Cruz Rep #: [id number] : 1965 51 From: Jesse Carrasco MD PCP: Cher Sampson NP Status: DEP ER This patient was seen during an EMR downtime August 03, 2017 - August 10, 2017. This patient may have a combination of paper and electronic documentation or all paper documentation. All documentation is viewable within the e-chart portion of [employer] for each patient visit. VENOUS DUPLEX LOWER Observed: 08/10/2017 Status: F Source: [place] EXTREMITY 7:02 PM [facility] Cardiovascular Services [address] [place] [address] Venous Duplex US, Unilateral 08/10/17 1056 MR#: [id number] Acct: [id number] Name: VONNIE GILBERT R Rep #: [id number] : 1965 51 From: Erick Gonsalez MD Attending Dr: Susu Bergeron MD Status: REG CLI Ordering Dr: Susu Bergeron MD Date: 08/10/17 Location: CVS Sex: F C Admitted: Reason For Study: LEG PAIN RIGHT LEFT GSV is normal. CFV is compressible, spontaneous, phasic, CFV is compressible, spontaneous, phasic, competent, and demonstrates normal competent and demonstrates normal augmentation. augmentation. FV is compressible, spontaneous, phasic, competent and demonstrates normal augmentation. POP V is compressible, spontaneous, phasic, competent and demonstrates normal augmentation. T/P Trunk is compressible. PTV is compressible. RT PerV is compressible. Procedure Exam performed in department. A preliminary report was called and/or faxed to PCP Damaris Sampson. Interpretation Summary Deep veins of the right lower extremity are patent and compressible segmentally. There is no evidence of right lower extremity deep vein thrombosis. Valvular competence appears intact within the proximal deep venous system on the right . The right greater saphenous vein appears patent and compressible segmentally. Ordering Physician: MD Susu Bergeron Referring Physician: Cher Sampson Performed By: Yamilet Lizama RVT 08/10/171900 Date Erick Gonsalez MD CC: Cher Sampson GUSSET STITCHER; Susu Bergeron MD Date Dictated: 08/10/17 1056 Date Transcribed: 08/10/171900 Daycare Provider: Signed URGENT CARE VISIT Observed: 04/09/2017 Status: F Source: [place] REPORT 4:[address] [address] OFFICE VISIT Date of Service: 04/09/17 MR#: [id number] Acct: [id number] Name: MARTINVONNIE Arroyo Rep #: [id number] : 1965 Provider: Donnie SOTOMAYOR Age/Sex: 51/F Location: [facility] Status: Signed Intake Vital Signs04/09/17 Height 5 ft 9 in 04/09/17 Weight: 241 lb 04/09/17 Body Mass Index (BMI) 35.6 Intake Visit Reasons: ILL 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: No Is patient in pain?: No Allergies No Known Allergies Allergy (Verified 04/09/17 16:32) Medications Atorvastatin Calcium [Lipitor] 20 mg PO DAILY 05/11/13 [History Confirmed 04/09/17] Nebivolol HCl [Bystolic] 10 mg PO DAILY 05/11/13 [History Confirmed 04/09/17] Estradiol [Estrace] 2 mg PO DAILY 10/04/16 [History Confirmed 04/09/17] Meloxicam 7.5 mg PO DAILY 10/04/16 [History Confirmed 04/09/17] PFSH Medical History HTN (hypertension) (Chronic) Surgical History H/O: hysterectomy (Acute) Hx of cholecystectomy (Acute) Family History Other Hypertension Social History Smoking Status: Never smoker alcohol intake: never HPI HPI Details: VONNIE GILBERT, is a 51 F who presents to the office today for initial evaluation approximately 24 hour history of headache, myalgias, chills, dry cough. Patient notes prior to yesterday being essentially asymptomatic. She knows no family members in her house with similar signs or symptoms. She is a non-smoker. She notes no other associated symptoms and no other alleviating or aggravating factors. ROS Const Constitutional: Positive for chills, body ache and headache(s); no excessive sweating, abnormal sleep pattern, fever(s) or night sweats Eyes Eyes: No change in vision ENT ENT: Positive for headache(s); no abnormal hearing, ear pain, ear discharge, ear pressure, hearing loss, post nasal drip or sinus pressure Resp Respiratory: Positive for cough; no chest congestion Cardio Cardiology: No excessive sweating, chest pain at rest, chest pain with exertion, shortness of breath, dyspnea on exertion, irregular heart rhythm, generalized swelling or leg pain with exertion Gastro GI: No abdominal pain, change in stool character or change in bowel habits Musc Musculoskeletal: No joint pain, back pain or limited range of motion Skin Skin: No change in hair or sores Neuro Neurology: Positive for headache(s); no abnormal hearing, abnormal speech or abnormal movements Psych Psychiatric: No abnormal sleep pattern Endo Endocrine: No excessive sweating, change in body appearance, cold intolerance or heat intolerance Aller/Imm Allergy/Immunologic: No food intolerance Horacio/Lymp Hematologic/Lymphatic: No easy bruising Exam Const General: cooperative, healthy appearing, no acute distress, uncomfortable Nutritional Appearance: average body habitus Orientation: alert, awake, oriented x3 HENMT Head: normal to inspection Ears: hearing grossly normal bilaterally, external ears normal, TM's normal bilaterally, EAC's normal Nose: external nose normal, nares normal, septum normal, nasal discharge clear Face and sinus: normal facial exam, sinuses nontender, face symmetric Mouth: oral mucosae normal, lip normal, oropharynx normal, tongue normal Teeth and gingiva: dentition normal, gingiva normal Throat: posterior oropharynx normal, tonsils normal, uvula midline Eyes General: appearance normal, both eyes and all related structures Neck Neck: normal visual inspection, full ROM, no lymphadenopathy, no meningeal signs, supple Neck mass: No Thyroid: thyroid normal Lymphatic: no lymphadenopathy noted Chest Chest palpation AND inspection: normal inspection of the chest Resp Effort AND Inspection: normal respiratory effort, able to speak in complete sentences, symmetric chest movement, cough Quality of cough: dry Auscultation: Bilateral: Clear to Auscultation Cardio Palpation: normal PMI Rate: regular rate Rhythm: regular rhythm Heart Sounds: S1 normal, S2 normal, no gallops, no murmurs, no rubs Pulses: radial pulses present GI Inspection: normal to inspection Palpation: soft, no hepatosplenomegaly Skin General: no rashes or lesions noted Neuro General: alert, awake, oriented x3, gait normal Cognition: normal cognition Speech: speech normal Gait: normal gait Motor: muscle tone normal throughout Sensory Exam: no sensory deficits noted Extrem General: normal to inspection Psych Appearance: grossly normal Mental Status: mental status grossly normal Mood: congruent mood Affect: normal affect Speech and Movement: speech and movement normal Attitude: cooperative Thought Process: normal Thought Content: normal Judgment: judgment good Results BMSFLUAB Office Flu A AND B Negative FLU A AND B Last Edit by Florina N Cogar on 04/09/17 16:54 Assessment AND Plan Problems 1. URI (upper respiratory infection) J06.9 Plan Patient aware today's rapid flu is negative. Clear fluids, rest, Advil/Tylenol as for symptomatic relief. Work excuse given to patient. Follow-up with PCP in 5-7 days should symptoms not improve, sooner should symptoms worsen or any other concerns develop. Patient states acknowledging understanding all the above. This note was generated with Ululeation software. It may contain incorrect words, spelling, and punctuation that were not noted in checking the note before signing. Orders Orders: Coding Level of Care Code Off vis,est,level 3 Diagnoses URI (upper respiratory infection) J06.9 04/09/17 1656 <Electronically signed by Donnie SOTOMAYOR> Date Donnie SOTOMAYOR Cosigner Signature: Date (if applicable) CC: MASSAGE THERAPY Observed: 04/03/2017 Status: F Source: [place] EVALUATION 10:52 AM [facility] REPOSITORY [facility] 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 She was referred to the [facility] facility be Dr Cher Sampson with the [...] trapezius, rhomboids, and sub occipitals with moderate restrictions in cervical ROM. Her thoracic and lumbar [...] a total of ten sessions with the recommendation of once every four weeks for a one hour treatment. <Electronically signed by Susu Malin > 04/03/17 1052 CC: Cher Sampson NP LYUBOV Signed For Medicare only, by signing this I certify the plan of care. Physicians Signature Date ALLERGIES ALLERGIES DATE TYPE / CODE NAME / CODE REACTION SEVERITY SOURCE 03/24/2018 Drug No Known Unknown [facility] [facility] Allergy/4160 Allergies/F00 [facility] 8[address]85(SNOMED [id number](RXNOR Repository CT) M) ENCOUNTERS ENCOUNTERS ADMIT/DISCHARGE ACCOUNT ADMITTING ENCOUNTER LOCATION SOURCE NUMBER CLASS 03/24/2018/ [id number] Ambulatory BMSBuilding:B [place] 9 3 MS.BIM [facility] Repository 03/22/2018 [id number] Ambulatory [place] 4 [facility] ing:ZARI.ALTAGRACIA Repository E 03/10/2018 [id number] Ambulatory BMSBuilding:B Krystyna 2 MS.CF.WSA [facility] Repository 03/10/2018/ [id number] Ambulatory [place] Krystyna 9 7 [facility] ing:ENRoom: Repository AC10 03/05/2018/ [id number] Ambulatory BMSBuilding:B [place] 9 7 MS.BIM [facility] Repository 02/25/2018/ [id number] Ambulatory [place] 8 7 [facility] ing:MASS Repository 02/22/2018 [id number] Ambulatory [place] Krystyna 6 [facility] ing:MRI Repository 01/28/2018/ [id number] Ambulatory BMSBuilding:B Krystyna 8 1 MS.WSA [facility] Repository 01/25/2018 [id number] Ambulatory Building:[facility] Practices Repository 01/19/2018 [id number] Ambulatory [place] Krystyna 8 [facility] ing:MTLAB Repository 10/29/2017 [id number] Ambulatory [place] 2 [facility] ing:OPBD Repository 10/07/2017 [id number] Ambulatory [place] 6 [facility] ing:EMPH Repository 08/21/2017 [id number] Ambulatory [place] 5 [place] [facility] ing:OPBI Repository 08/10/2017 [id number] Ambulatory Everson Everson 9 [facility] ing:[facility]S Repository 08/09/2017/ [id number] Emergency Krystyna Krystyna 8 9 [facility] ing:ED Repository 04/09/2017/ [id number] Ambulatory BMSBuilding:B Krystyna 8 7 MS.NOW [facility] Repository PAYERS PAYERS ENCOUNTER GUARANTOR PAYER SUBSCRIBER SOURCE 03/24/2018 VONNIE R Primary Insurance:[facility] VONNIE R Everson [id number] [facility] NOFFSINGERDOB: [facility] 5002[place]37[place] Number: Repository [address]Ijo: [phone] [id number] [phone] () Date:7839-07-66UL [address] [address]BAAJIEGWF, [place] [address]ZX: CHECK WEBSITE 03/24/2018 Secondary NOT GIVENUNK Krystyna Insurance:SELF PAY [facility] Number: Effective Repository Date:2018-03-08 03/22/2018 VONNIE R Primary Insurance:[facility] VONNIE Arroyo Everson [id number] [facility] NOFFSINGERDOB: [facility] 9286-75-67FYJTafton[place] Number: Repository [address]Zyp: 330 [id number] [phone] () Date:5284-45-03HU [address] [address]FCUSPLWYU, [place] [address]KI: CHECK WEBSITE 03/22/2018 Secondary NOT GIVENUNK Everson Insurance:SELF PAY [facility] Number: Effective Repository Date:2018-03-22 03/10/2018 VONNIE R Primary Insurance:[facility] VONNIE R Everson [id number] [facility] NOFFSINGERDOB: [facility] [id number], [place] Number: Repository [address]Eia: 330 [id number] [phone] () Date:7760-29-67WO [address] [address]WOATLENNI, [place] [address]VM: CHECK WEBSITE 03/10/2018 Secondary NOT GIVENUNK Everson Insurance:SELF PAY [facility] Number: Effective Repository Date:2018-03-10 03/10/2018 VONNIE R Primary Insurance:[facility] VONNIE Arroyo Everson [id number] [facility] NOFFSINGERDOB: [facility] [id number][place] Number: Repository [address]Cvd: 330 [id number] [phone] () Date:1768-67-45EU [address] [address]BPREORNDY, [place] [address]DG: CHECK WEBSITE 03/10/2018 Secondary NOT GIVENUNK Everson Insurance:SELF PAY [facility] Number: Effective Repository Date:2018-01-28 03/05/2018 VONNIE R Primary Insurance:[facility] VONNIE Arroyo Krystyna [id number] [facility] NOFFSINGERDOB: [facility] [id number] Number: Repository [address]Uxc: 330 [id number] [phone] () Date:7126-07-90AI [address] [address]XIQGSOAPX, [place] [address]NA: CHECK WEBSITE 03/05/2018 Secondary NOT GIVENUNK Krystyna Insurance:SELF PAY [facility] Number: Effective Repository Date:2018-02-25 02/25/2018 VONNIE R Primary Insurance:[facility] VONNIE R Krystyna [id number] [facility] NOFFSINGERDOB: [facility] [id number], [place] Number: Repository [address]Ljy: 330 [id number] [phone] () Date:0065-55-49BZ [address] [address]XKVFPUMOZ, [place] [address]XI: CHECK WEBSITE 02/25/2018 Secondary NOT GIVENUNK Everson Insurance:SELF PAY [facility] Number: Effective Repository Date:2017-03-20 02/22/2018 VONNIE R Primary Insurance:[facility] VONNIE R Everson [id number] [facility] NOFFSINGERDOB: [facility] 0415-48-46MLXTafton, [place] Number: Repository [address]Bry: 330 [id number] [phone] () Date:6231-84-38NP [address] [address]JGJDZOMDM, [place] [address]GF: CHECK WEBSITE 02/22/2018 Secondary NOT GIVENUNK Krystyna Insurance:SELF PAY [facility] Number: Effective Repository Date:2018-02-15 01/28/2018 VONNIE R Primary Insurance:[facility] VONNIE R Krystyna [id number] [facility] NOFFSINGERDOB: [facility] 0567-55-49RFVTafton, [place] Number: Repository [address]Lsu: 330 [id number] [phone] () Date:5264-82-82ZY [address] [address]TYZIMEFFZ, [place] [address]LQ: CHECK WEBSITE 01/28/2018 Secondary NOT GIVENUNK Krystyna Insurance:SELF PAY [facility] Number: Effective Repository Date:2018-01-28 01/25/2018 Vonnie R Primary Vonnie R OHIP Practices NoffsingerDOB: Insurance:Medical NoffsingerDOB: Repository [id number] [facility] [id number] [place] Number: [address] [place] [address], [id number] [place], [place] [address]Aqb: Date:1016-01-12Rzmw [place] [address]Eie: Name:O Lynnette ()Tel: [phone]) [phone], [place] ) [phone] ([phone]) [phone]: 01/25/2018 Secondary Vonnie R OHIP Practices Insurance:[facility], NoffsingerDOB: Repository [facility] Number: [id number] 5 [place] Date:2005-03-02 - [facility], 9244-65-67Xskt [place] [address]Jzp: Name:[facility] LYNNETTE [address] [place] [address] () [address]ZV: 01/19/2018 VONNIE R Primary Insurance:[facility] VONNIE R Everson [id number] [facility] NOFFSINGERDOB: [facility] 6177-68-33HAVTafton, [place] Number: Repository [address]Rbe: [phone] [id number] [phone] () Date:4867-89-43XT [facility] [address]39SZIAFHADF, [place] [address]VL: CHECK WEBSITE 01/19/2018 Secondary NOT GIVENUNK Krystyna Insurance:SELF PAY [facility] Number: Effective Repository Date:2018-01-19 10/29/2017 VONNIE R Primary Insurance:[facility] VONNIE R Everson [id number] [facility] NOFFSINGERDOB: [facility] 1008-11-07BHETafton, [place] Number: Repository [address]Vpq: 330 [id number] [phone] () Date:1300-80-20ID [facility] [address]RGORUOOJL, [place] [address]SN: CHECK WEBSITE 10/29/2017 Secondary NOT GIVENUNK Krystyna Insurance:SELF PAY [facility] Number: Effective Repository Date:2017-10-22 10/07/2017 VONNIE R Primary NOT GIVENUNK Krystyna [id number] Insurance:SELF PAY [place] Number: Effective Repository [id number]: ([phone]) Date:2017-10-07 () 08/21/2017 VONNIE R Primary Insurance:[facility] VONNIE R Krystyna [id number] [facility] NOFFSINGERDOB: [facility] 6957-84-76EBYSummers [facility] [place] Number: Repository [address]Gzf: 330 [id number] () Date:5053-84-54OU [address] [address]FCEYBZNZU, [place] [address]FE: CHECK WEBSITE 08/21/2017 Secondary NOT GIVENUNK Everson Insurance:SELF PAY [facility] Number: Effective Repository Date:2017-08-06 08/10/2017 VONNIE R Primary Insurance:[facility] VONNIE R Krystyna [id number] [facility] NOFFSINGERDOB: [facility] [id number] [facility] [place] Number: Repository [address]Sxx: 330 [id number] () Date:2957-89-57OW [address] [address]IIUXAPROS, [place] [address]MZ: CHECK WEBSITE 08/10/2017 Secondary NOT GIVENUNK Everson Insurance:SELF PAY [facility] Number: Effective Repository Date:2017-08-10 08/09/2017 VONNIE R Primary Insurance:[facility] VONNIE R Krystyna [id number] [facility] NOFFSINGERDOB: [facility] 7911-36-76[facility]TR[facility] [place] Number: Repository [address]Fca: 330 [id number] [phone] () Date:2101-08-86KH [address] [address]BDXDRHTOI, [place] [address]BH: CHECK WEBSITE 08/09/2017 Secondary NOT GIVENUNK Krystyna Insurance:SELF PAY [facility] Number: Effective Repository Date:2017-08-09 04/09/2017 VONNIE R Primary Insurance:[facility] VONNIE R Everson [id number] [facility] NOFFSINGERDOB: [address]10[address]31[facility], [place] Number: Repository [address]Utf: [phone] [id number] [phone] () Date:3499-25-39OV [address] [address]QPVFRRDLG, [place] [address]RK: CHECK WEBSITE 04/09/2017 Secondary NOT GIVENUNK Everson Insurance:SELF PAY [facility] Number: Effective Repository Date:2017-04-09
== END ==
PROVIDERS: Family Provider Internal Medicine; PCP Internal Medicine; Referring Provider Nurse Practitioner; Visit Provider Nurse Practitioner
DX: Z01.818 Encounter for other preprocedural examination (principal); M48.02 Spinal stenosis, cervical region
CPT/HCPCS: 36415; 80053; 81002; 85027

== ENCOUNTER → 2018-05-10 10:08 | Outpatient (CLI) | payer OTHER, SELFPAY ==
[2018-05-07 17:12] VITALS: BMI 34.4
[2018-05-10 13:41] LABS: Cholesterol 207 mg/dL (200); High Density Lipoprotein 53 mg/dL; Triglycerides 239 mg/dL; Very Low Density Lipoprotein 48 mg/dL (5-40)
== END ==
PROVIDERS: Family Provider Internal Medicine; PCP Internal Medicine; Visit Provider Internal Medicine
DX: E78.1 Pure hyperglyceridemia (principal); E78.00 Pure hypercholesterolemia, unspecified
CPT/HCPCS: 36415; 80061

== ENCOUNTER 2018-05-27 17:00 | Outpatient (RCR) | payer OTHER, SELFPAY ==
[2018-03-24 17:46] VITALS: BMI 34.4
--- NOTE | 2018-04-30 10:13 | HP.PTEVAL ---
Patient's Visit Information TARAS SALAZAR is a 52 year old F referred to Physical Therapy by Wanda Arevalo NP-C with a diagnosis of SPINAL STENOSIS OF CERVICAL REGION. Date of Evaluation: 04/30/18 Physical Therapist: Noam Martinez, PT, Cert MDT, OCS - Visit Plan Frequency: 2x /Week Duration: 5WEEKS Plan: S/P ANTERIOR CERVICAL DISECTOMY AND FUSION 04/08. WEAN FROM SOFT CERVICAL COLLAR NEXT WEEK. INTIATE GRADED ROM CERVICL SPINE,CERVICAL/POSTURAL EX'S,CERVICAL ISOMTRICS,UE STRENGTHENING,CP - Subjective Findings: This 52 y/o female presents to physical therapy with spinal stenosis of cervical region. Patient underwent s/p anterior cervical disectomy and fusion bone and plate/scres C6-7 ON 04/08/[address] Carrasco at [facility]. Patient seen [employer] last week and one more week with soft collar. Patient had cervical pain for 2 years ,tried PT ,pain managemnt with epidural injections,massage. Patie nt had MRI . Patient doing well ,just tension. Denies parathesia/tingling.Denies ANN/dizziness/nuasea. Patient pain affects sleeping. Patient surgery affect QOL and function/harish demnads.Patient has 10# restriction. VOCATION: [employer]. SOCAIL: - Pain Bilateral Neck Pain Intensity (Out of 10): 1 Pain Intensity Range: 10 - Objective POSTURE: mild foward posture. INSCION: well approximate anterior. NEURO: denies parathesia/tingling ,reflexes 2/3 C5-6-7. AROM: BUE AROMWFL. MMT:BUE 4/5 ,except shoulders 4-/5. CERVICAL ROM: flexion min loss,lateral flexion/rotation mod loss,extension mod loss. LOSS PREVENTION ASSOCIATE STRENGTH: R -55#, L- 50# - Special Tests C/S Radiculapathy - Left Upper limb tension test: Negative C/S Radiculapathy - Right Upper limb tension test: Negative - Goals Goal 1:: Independant with HEP Goal Time Frame: 4-6 Weeks Goal 2:: Independant with posture for ADL'S Goal Time Frame: 4-6 Weeks Goal 3:: Patient to improve cervical ROM min loss for function of recovery. Goal Time Frame: 4-6 Weeks Goal 4:: Patient to improve ablity with ADLS' and RTW with min to no limitations. Goal Time Frame: 4-6 Weeks Goal 5:: Patient to improve JACQUELINE cervical disablity score by 5 points to improve QOL. Goal Time Frame: 4-6 Weeks - Rehabilitation Potential Physical Therapy Diagnosis: This patient underwent s/p anterior cervical disectomy and fusion 04/08/18 with decrease Cervical ROM ,strength ,impairs ADL'S and function wth RTW thus benifit from skilled PT Rehabilitation Potential: Good - Anticipated Interventions Patient/Client Instruction: Educate patient on: Condition, Plan of Care For the Purpose of:: To decrease pain, To increase ROM, To improve muscle performance and motor function, To improve ability to perform ADL's, To increase tolerance to activity/condition/position, To improve performance and independence with ADL's, To improve ability of physical actions for home/community/work/leisure, To improve health of tissue, To decrease soft tissue restriction, To increase flexibility/ROM, To improve ability to perform tasks related to life management Therapeutic Exercise to Include: Strength training, Postural training, Flexibilty training, Active ROM Comment: CERVICAL/UE For the Purpose of:: To decrease pain, To increase ROM, To improve muscle performance and motor function, To improve ability to perform ADL's, To increase tolerance to activity/condition/position, To improve performance and independence with ADL's, To improve ability of physical actions for home/community/work/leisure, To increase flexibility/ROM, To assume or resume ADL's, To improve health and function, To improve ability to perform tasks related to life management Cryotherapy (ice pack, ice massage): Yes For the Purpose of:: To decrease pain, To decrease swelling/inflammation Thank you for the opportunity to evaluate your patient. For Medicare and Medicare HMO plans, please review the plan of care and approve it. It will need to be FAXED BACK to us at [phone] for Medicare purposes. For Medicare only, by signing this I certify the plan of care. Please let me know if there are questions or concerns regarding this plan of care. Physician Signature: Date:
--- NOTE | 2018-05-27 17:33 | HP.PTDCSUM_ITS ---
HP - PT D/C Summary It has been my pleasure to treat TARAS SALAZAR under orders from VARUN Ledesma, for the diagnosis of SPINAL STENOSIS OF CERVICAL REGION for a total of 9 visit(s). Discharge Date: 05/27/18 Please see the following information for a summary of their discharge status. - Subjective Subjective: Doing well ..ready for d/co no pain ,some sorenss. Able to do ADL'S - Pain Bilateral Neck Pain Intensity (Out of 10): 0 - Overall Improvement % Improvement: 95 - Objective Objective/Function: POSTURE: WFL. CERVICAL ROM: flexion min loss,lateral f lexion /rotation ,ext min loss. MMT: 4/5 - Goals Goal 1:: Independant with HEP Goal Progress: Goal Met Goal 2:: Independant with posture for ADL'S Goal Progress: Goal Met Goal 3:: Patient to improve cervical ROM min loss for function of recovery. Goal Progress: Goal Met Goal 4:: Patient to improve ablity with ADLS' and RTW with min to no limitations. Goal Progress: Goal Met Goal 5:: Patient to improve JACQUELINE cervical disablity score by 5 points to improve QOL. Goal Progress: Goal Met - Plan Plan: D/C TO HEP - D/C Information Discharge Comments: HEP If there are questions or concerns regarding this patient's physical therapy, please feel free to call me at [phone]. Thank you for the referral of this patient. Sincerely, Noam Martinez, PT, Cert MDT, OCS
== END 2018-05-27 19:00 | disposition home or self-care (01) ==
LOC: PT 17:00
PROVIDERS: Family Provider Internal Medicine; PCP Internal Medicine; Referring Provider Nurse Practitioner Acute Care; Visit Provider Nurse Practitioner Acute Care
DX: M48.02 Spinal stenosis, cervical region (principal)
CPT/HCPCS: 97110; 97161

== ENCOUNTER → 2018-08-25 10:46 | Outpatient (CLI) | payer OTHER, SELFPAY ==
[2018-08-06 11:15] VITALS: BMI 35.4
--- NOTE | 2018-08-25 10:50 | BI_ITS ---
MAMMOGRAPHY - BILATERAL SCREENING 3-D TOMOSYNTHESIS REASON FOR EXAM: Female, 52 years old. Bilateral Screening 3-D tomosynthesis PERTINENT HISTORY: No significant family history. TECHNIQUE: 2-D mammograms and 3-D Tomosynthesis of the breast (s) were performed. CAD was performed. COMPARISON: August 20, 2017, March 17, 2016, July 20, 2015 FINDINGS: The breast composition is almost entirely fat. Scattered benign calcifications are seen. No dense spiculated masses or suspicious microcalcifications are identified. No architectural distortion is identified. There is no skin thickening or retraction. There are stable lymph nodes. There has been no significant change since the prior study. BI/SCREEN MAMM (CAD) W/EZRA BILAT IMPRESSION: No mammographic signs of malignancy. Routine yearly mammograms recommended. ASSESSMENT CATEGORY: BIRADS Category 2: Benign. A letter regarding these results will be sent to the patient by the facility within 30 days. FOLLOW UP RECOMMENDATION: Yearly follow up mammogram recommended. (A) Approximately 10% of breast cancers are not detected by mammography. A normal mammogram should not delay biopsy of a clinically suspicious abnormality. Electronically Signed: Vincent Rashid MD at 11:16 EDT , Service support ,
== END ==
PROVIDERS: Family Provider Internal Medicine; PCP Internal Medicine; Referring Provider Nurse Practitioner Family; Visit Provider Nurse Practitioner Family
DX: Z12.31 Encounter for screening mammogram for malignant neoplasm of breast (principal)
CPT/HCPCS: 77063; 77067

== ENCOUNTER → 2018-11-09 09:38 | Outpatient (REF) | payer OTHER, SELFPAY ==
[2018-08-31 11:51] VITALS: BMI 35.4
[2018-11-09 12:43] LABS: Color, Urine Yellow (Yellow); Glucose, Dipstick Normal (Normal); Ketone-Dipstick Negative (Negative); Leukocyte Esterase-Dipstick Negative /ul (Negative); Nitrite-Dipstick Negative (Negative); Occult Blood-Urine Negative /ul (Negative); Protein-Dipstick Negative (Negative); Urine Bilirubin Dipstick Negative (Negative); Urine Clarity Sl. Cloudy (Clear); Urine Urobilinogen Normal (Normal)
[2018-11-09 12:49] LABS: Absolute Lymphocyte Count 1.94 X10^3/uL (0.83-4.51); Absolute Neutrophil Count 3.1 X10^3/uL (2.0-7.7); Basophil# 0.02 X10^3/uL; Basophil% 0.4 % (0-1); Eosinophil# 0.15 X10^3/uL; Eosinophils% 2.7 % (0-5); Hematocrit 42.7 % (37-47); Hemoglobin 14.5 g/dL (12.0-15.0); Lymphocyte # 1.94 X10^3/ul; Lymphocyte % 34.3 % (19-41); Mean Corpuscular Hgb 30.7 pg (27.0-32.0); Mean Corpuscular Volume 90.3 fL (81-99); Mean Platelet Vol. 10.2 fl (6.2-12.0); Monocyte# 0.47 X10^3/uL; Monocyte% 8.3 % (0-10); NRBC Flagged by Analyzer 0 % (0-5); Neutrophil # 3.05 X10^3/uL (2.7-7.7); Neutrophil % 53.9 % (47-70); Platelet Count 263 K/mm3 (150-450); RBC Distribution Width CV 12.7 % (11.6-14.6); RBC Distribution Width SD 41.9 fl (35.1-43.9); Red Blood Count 4.73 M/mm3 (4.2-5.4); White Blood Count 5.7 K/mm3 (4.4-11.0)
[2018-11-09 13:10] LABS: AST(SGOT) 20 U/L (15-37); Alanine Aminotransfer ALT/SGPT 32 U/L (13-56); Albumin, Serum 3.3 g/dL (3.2-5.0); Alkaline Phosphatase 86 U/L (45-117); Anion Gap 10 (5-15); BUN 19 mg/dL (7-18); BUN/Creat Ratio 27.3 RATIO (10-20); Bilirubin, Direct 0.11 mg/dL (0.00-0.30); Calcium,Total 8.4 mg/dL (8.5-10.1); Chloride 110 mmol/L (98-107); Cholesterol 163 mg/dL (200); EST Glomerular Filtration Rate 95 mL/min (>60); Est Glom Filt Rate - Afr Amer 115 mL/min (>60); Globulin 3.2 g/dL (2.2-4.2); Glucose 93 mg/dL (74-106); High Density Lipoprotein 44 mg/dL; LDH 178 U/L (84-246); Potassium 4.3 mmol/L (3.5-5.1); Protein, Total 6.5 g/dL (6.4-8.2); Sodium Level 143 mmol/L (136-145); Triglycerides 206 mg/dL; Uric Acid 6.1 mg/dL (2.6-6.0); Very Low Density Lipoprotein 41 mg/dL (5-40)
== END ==
LOC: EMPH 09:38
PROVIDERS: Family Provider Internal Medicine; PCP Internal Medicine
DX: Z00.00 Encounter for general adult medical examination without abnormal findings (principal)

== ENCOUNTER 2019-02-01 10:45 | Outpatient (RCR) | payer OTHER, SELFPAY ==
[2018-03-24 17:46] VITALS: BMI 34.4
--- NOTE | 2019-02-08 19:52 | MASS.DISCH ---
Massage Therapy Discharge Summary: Discharge Date: 02/08/2019 Vonnie was seen for a massotherapy evaluation on 04/01/2018 with the cervical spinal stenosis. She was treated with ten sessions of massage therapy consisting of moderate to deep pressure soft tissue techniques, myofascial release and trigger point compression to her cervical, thoracic, lower back, upper extremities, hips and lower extremities. Vonnie responded well to the therapy by reporting decreased tension and pain throughout his head, neck, shoulders, lower back and hips. Her goals for therapy were met throughout the treatment sessions. At this time this patient is being discharged from our care at [facility] facility.
== END 2019-02-01 19:00 | disposition home or self-care (01) ==
LOC: MASS 10:45
PROVIDERS: Family Provider Internal Medicine; PCP Internal Medicine; Referring Provider Nurse Practitioner Family; Visit Provider Nurse Practitioner Family
DX: M54.12 Radiculopathy, cervical region (principal); M48.02 Spinal stenosis, cervical region
CPT/HCPCS: 97124

== ENCOUNTER → 2019-05-09 09:21 | Outpatient (CLI) | payer OTHER, SELFPAY ==
[2018-11-12 11:09] VITALS: BMI 35.4
[2019-05-09 12:58] LABS: AST(SGOT) 20 U/L (15-37); Alanine Aminotransfer ALT/SGPT 29 U/L (13-56); Albumin, Serum 3.6 g/dL (3.2-5.0); Alkaline Phosphatase 79 U/L (45-117); Anion Gap 9 (5-15); BUN 20 mg/dL (7-18); BUN/Creat Ratio 27.5 RATIO (10-20); Calcium,Total 8.7 mg/dL (8.5-10.1); Chloride 105 mmol/L (98-107); Cholesterol 209 mg/dL (200); Creatinine, Serum 0.73 mg/dL (0.55-1.02); EST Glomerular Filtration Rate 90 mL/min (>60); Est Glom Filt Rate - Afr Amer 109 mL/min (>60); Globulin 3.5 g/dL (2.2-4.2); Glucose 95 mg/dL (74-106); High Density Lipoprotein 53 mg/dL; Potassium 4.2 mmol/L (3.5-5.1); Protein, Total 7.1 g/dL (6.4-8.2); Sodium Level 136 mmol/L (136-145); Triglycerides 263 mg/dL; Very Low Density Lipoprotein 53 mg/dL (5-40)
== END ==
PROVIDERS: Nurse Practitioner Family; PCP Internal Medicine; Visit Provider Internal Medicine
DX: I10 Essential (primary) hypertension (principal); E78.1 Pure hyperglyceridemia
CPT/HCPCS: 36415; 80053; 80061

== ENCOUNTER → 2019-09-14 11:19 | Outpatient (CLI) | payer OTHER, SELFPAY ==
[2019-05-16 09:28] VITALS: BMI 35.4
--- NOTE | 2019-09-14 11:19 | BI_ITS ---
MAMMOGRAPHY - BILATERAL SCREENING REASON FOR EXAM: Female, 53 years old. Routine annual screening examination. PERTINENT HISTORY: Aunt with breast cancer. TECHNIQUE: Digital bilateral breast ezra (3D mammographic acquisition) in the CC and MLO projections. 2-D mediolateral oblique (MLO) and craniocaudad (CC) views of both breasts were obtained. CAD: Full Field Digital Mammography with Computer Added Detection was performed. COMPARISON: Comparison is made with prior study dated August 25, 2018 and August 21, 2007. FINDINGS: Breast Composition: There are scattered areas of fibroglandular density. There are no dominant masses or suspicious calcifications. Stable small benign-appearing axillary lymph nodes. No other significant abnormalities are identified. There has been no significant change since the prior study. BI/SCREEN MAMM (CAD) W/EZRA BILAT IMPRESSION: Stable bilateral screening mammogram. Yearly follow-up mammogram recommended. (A) ASSESSMENT CATEGORY: BIRADS Category 1: Negative. A letter regarding these results will be sent to the patient by the facility within 30 days. Approximately 10% of breast cancers are not detected by mammography. A normal mammogram should not delay biopsy of a clinically suspicious abnormality. [id number] Electronically Signed: Pola García, at 13:23 EDT , Service support ,
== END ==
PROVIDERS: PCP Internal Medicine; Referring Provider Nurse Practitioner Family; Visit Provider Nurse Practitioner Family
DX: Z12.31 Encounter for screening mammogram for malignant neoplasm of breast (principal)
CPT/HCPCS: 77063; 77067

== ENCOUNTER → 2019-10-31 09:24 | Outpatient (CLI) | payer OTHER, SELFPAY ==
[2019-05-16 09:28] VITALS: BMI 35.4
[2019-10-31 12:24] LABS: ALB/GLOB Ratio 1.2 RATIO (0.9-2.4); AST(SGOT) 33 U/L (15-37); Alanine Aminotransfer ALT/SGPT 52 U/L (13-56); Alkaline Phosphatase 85 U/L (45-117); Anion Gap 9 (5-15); BUN 18 mg/dL (7-18); BUN/Creat Ratio 24.2 RATIO (10-20); Calcium,Total 9.2 mg/dL (8.5-10.1); Chloride 103 mmol/L (98-107); Cholesterol 204 mg/dL (200); Creatinine, Serum 0.74 mg/dL (0.55-1.02); EST Glomerular Filtration Rate 87 mL/min (>60); Est Glom Filt Rate - Afr Amer 105 mL/min (>60); Globulin 3.4 g/dL (2.2-4.2); Glucose 93 mg/dL (74-106); High Density Lipoprotein 44 mg/dL; Protein, Total 7.4 g/dL (6.4-8.2); Sodium Level 135 mmol/L (136-145); Triglycerides 366 mg/dL; Very Low Density Lipoprotein 73 mg/dL (5-40)
== END ==
PROVIDERS: PCP Internal Medicine; Visit Provider Nurse Practitioner Family
DX: E78.5 Hyperlipidemia, unspecified (principal)
CPT/HCPCS: 36415; 80053; 80061

== ENCOUNTER 2019-12-29 11:45 | Outpatient (RCR) | payer OTHER, SELFPAY ==
[2018-11-12 11:09] VITALS: BMI 35.4
--- NOTE | 2019-04-20 10:43 | MASS.EVAL ---
Massage Therapy Evaluation: . Initial Evaluation Date: 04/18/2019 /Age: 10 1965, 53 Diagnosis: Radiculopathy - Cervical Region Goals: Decrease neck pain Decrease muscle tension Assessment: Vonnie is a good candidate for massage at this time. We have had success treating her symptoms in the past. Plan: To be seen one time per month or PRN for a total of 10 one hour sessions.
[2019-05-16 09:28] VITALS: BMI 35.4
--- NOTE | 2020-02-22 09:25 | MASS.DISCH ---
Massage Therapy Discharge Summary: Initial Evaluation Date: 04/18/2019 Diagnosis: Radiculopathy - Cervical Region No. of Visits: 4 Date of last visit: 12/29/19 This patient is being discharged from our care at the [facility]. Thank you, Mariangel Newman LMT
== END 2019-12-29 19:00 | disposition home or self-care (01) ==
LOC: MASS 11:45
PROVIDERS: PCP Internal Medicine; Visit Provider Nurse Practitioner Family
DX: M54.12 Radiculopathy, cervical region (principal)
CPT/HCPCS: 97124

== ENCOUNTER → 2020-03-28 10:59 | Outpatient (CLI) | payer OTHER, SELFPAY ==
[2020-03-28 12:43] LABS: Vitamin D,25 Hydroxy 68.3 ng/mL
[2020-03-28 13:36] LABS: ALB/GLOB Ratio 1.1 RATIO (0.9-2.4); AST(SGOT) 33 U/L (15-37); Alanine Aminotransfer ALT/SGPT 56 U/L (13-56); Albumin, Serum 3.7 g/dL (3.2-5.0); Alkaline Phosphatase 89 U/L (45-117); Anion Gap 8 (5-15); BUN 19 mg/dL (7-18); BUN/Creat Ratio 23.8 RATIO (10-20); Calcium,Total 8.8 mg/dL (8.5-10.1); Chloride 108 mmol/L (98-107); Cholesterol 195 mg/dL (200); EST Glomerular Filtration Rate 80 mL/min (>60); Est Glom Filt Rate - Afr Amer 97 mL/min (>60); Globulin 3.4 g/dL (2.2-4.2); Glucose 91 mg/dL (74-106); High Density Lipoprotein 47 mg/dL; Potassium 4.1 mmol/L (3.5-5.1); Protein, Total 7.1 g/dL (6.4-8.2); Sodium Level 138 mmol/L (136-145); Triglycerides 258 mg/dL; Very Low Density Lipoprotein 52 mg/dL (5-40)
== END ==
PROVIDERS: PCP Internal Medicine; Referring Provider Nurse Practitioner Family; Visit Provider Nurse Practitioner Family
DX: I10 Essential (primary) hypertension (principal); E78.1 Pure hyperglyceridemia; E78.00 Pure hypercholesterolemia, unspecified; E55.9 Vitamin D deficiency, unspecified
CPT/HCPCS: 36415; 80053; 80061; 82306

== ENCOUNTER 2020-09-20 07:31 | Day surgery (SDC) | payer OTHER, SELFPAY ==
[2020-08-29 11:00] VITALS: BMI 35.1
[2020-09-20] VITALS (7 sets, daily range): BP systolic 111–145; BP diastolic 72–84; PULSE 65–73; RESP 12–18; TEMP 35.7–36.1; O2SAT 94–99; BMI 33.2
--- NOTE | 2020-09-20 | MASS_PTH ---
PATIENT: SUSAN SALAZAR [place] [facility] [place][id number] AGE/SX: 54/F ROOM: RE09/20/[address]: Dr. Noam Clements MD : 1965 BED: DIS: 09/20/2020 SPEC #: [id number] RECD: 09/20/20 13:38 STATUS: VERONICA REQ #: [id number] ALICIA: 09/20/20 00:[address]: Noam Clements DEPT: SURGICAL PATHOLOGY RECD BY: Yousuf Bennett ENTERED: 09/20/20 13:38 SP TYPE: Mass OTHR DR: Dr. Santhosh Abbott MD Tissues: Forehead, NOS Procedures: Surgery Specimen Level III HEADER OPERATION: Excision soft tissue mass, central upper forehead PRE-OP DIAGNOSIS: 1.2 cm soft tissue mass central upper forehead TISSUE SUBMITTED: Soft tissue mass central upper forehead MICROSCOPIC DIAGNOSIS Soft tissue mass central upper forehead, excision: A piece of bone with reactive changes. SJ:verónica 09/24/2020 COMMENT Clinical correlation and appropriate follow up are necessary. Case has been reviewed in consultation with Dr. Bryan who concurs with the above diagnosis. IDC:AM MICROSCOPIC DESCRIPTION Slides are reviewed. GROSS DESCRIPTION Received in fixative is one container labeled with the patient's name and designated soft tissue mass central upper forehead. The specimen consists of a discoid fragment of king bone measuring 1.2 x 0.7 x 0.2 cm. The specimen is submitted in its entirety in one cassette after decalcification. / AM:verónica 09/20/20 TC:5 CPT: 77959
[2020-09-20] MEDS: Lactated Ringers 1,000 ML 100 ML IV (07:45)
--- NOTE | 2020-09-20 07:53 | HP.PCM_ITS ---
History and Physical Date of Admission: 09/20/20 HISTORY OF PRESENT ILLNESS 54 year old woman presents with a soft tissue mass central upper forehead that she has had for several years and has recently increased in size over the last several months. There is some discomfort when it is bumped. She denies fever. She denies numbness. She denies trauma. She denies recent infection. She denies headaches. She presents at this time for further evaluation and treatment. PAST MEDICAL HISTORY Mass of face Intervertebral disc protrusion High triglycerides High cholesterol Asthma HTN (hypertension) PAST SURGICAL HISTORY hysterectomy foot surgery cholecystectomy anterior cervical fusion ALLERGIES No Known Allergies MEDICATIONS atorvastatin venlafaxine olmesartan fenofibrate calcium carbonate cholecalciferol nebivolol FAMILY HISTORY Mother - Hypertension, Asthma Father - Hypertension, Cancer of kidney Brother - Hypertension SOCIAL HISTORY Smoking Status: Never smoker alcohol intake: never substance use type: does not use REVIEW OF SYSTEMS General - Denies fever, fatigue, and weight loss. Eyes - Denies cataracts and glaucoma. ENT - Denies nasal congestion and sore throat. Endocrine - Denies excessive thirst and urination. Skin - Denies skin cancer. Has enlarging soft tissue mass central upper fore head. Musculoskeletal - Denies joint pain, joint stiffness, weakness of muscles and joints, back pain, and arthritis. Neuro - Denies headaches. Cardiovascular - Denies chest pain, fatigue, and shortness of breath with exertion. Psych - Denies anxiety and depression. Respiratory - Denies chronic cough and shortness of breath. Gastrointestinal - Denies nausea, vomiting, diarrhea, and constipation. Hematologic - Denies abnormal bruising and bleeding. Genitourinary - Denies hematuria and urinary frequency. PHYSICAL EXAMINATION General - Alert and Oriented. HEENT - PERRL. EOMI. Throat is clear. On the central upper forehead near the hairline is a soft tissue mass that measures 12 mm. Mild tenderness to deep palpation. There is some firmness to palpation. She elevates her eyebrows symmetrically. No other suspicious lesions noted. Neck - Supple and nontender. No cervical adenopathy. No suspicious lesions noted. Lungs - Clear to auscultation. Heart - Regular rate and rhythm. Abdomen - Soft and nondistended. Extremities - FROM. No axillary adenopathy. Radial pulses are palpable. No suspicious lesions noted. Neuro - CN II-XII grossly intact. Psych - Normal mood and affect. ASSESSMENT 1.2 cm soft tissue mass central upper forehead. PLAN Recommend excision of this soft tissue mass central upper forehead and send it to Pathology for analysis to rule out carcinoma. Sometimes soft tissue masses in this area are submuscular in origin in which case a complex closure repair would be necessary. There is some firmness to palpation so there may be a bone cyst component to this mass. Surgery will be done under general anesthesia on an outpatient basis. Postoperatively will keep her head elevated during the initial postoperative period and be on a lifting restriction as well. Sutures will be removed in a week. Patient was informed of the risks and complications of the procedure including alternatives to surgery. These were discussed with the patient personally. Patient voices understanding and wishes to proceed. Some of the risks and complications were included in a form from the [employer]. We discussed the current risks associated with COVID-19. While it is understood that there is a community spread of COVID-19, the risk of aravind COVID-19 while at [facility] ([facility]) is very low; however, the risk cannot be completely mitigated because of the community spread of the disease. We discussed in detail the risk of exposure to and/or potential harm posed by the COVID-19 virus with having a surgery/procedure at this time versus the risk of delaying the surgery/procedure. It is not possible to know either the risk of delaying the surgery or procedure or chance of getting an infection with perfect accuracy, but a joint decision was made to proceed at this time with the scheduled surgery/procedure as indicated on the consent form. Patient was notified that we will need to comply with any screening or testing [facility] wishes to perform or that surgery may be delayed for any positive results. Procedure Criteria Procedure Type:?Elective COVID Risk Discussion: The surgeon/proceduralist and patient have discussed in detail the risk of exposure to and/or potential harm posed by the COVID-19 virus with having a surgery/procedure at this time versus the risk of delaying the surgery/procedure.? It is not possible to know either the risk of delaying the surgery or procedure or chance of getting an infection with perfect accuracy, but a joint decision was made between the patient and the surgeon/proceduralist to proceed at this time with the scheduled surgery/procedure as indicated on the consent form.
[2020-09-20] MEDS: Lidocaine 1% /Epi 1:100 (50ml) 50 ML VIAL (09:30)
[2020-09-20] MEDS: Mupirocin Ointment 22gm Tube 1 APPLIC (09:59)
--- NOTE | 2020-09-20 10:41 | PCM.OPRPT ---
Problems Associated Problem List Diagnoses (1) Skull mass: (2) Mass of face: Report of Operation Date of Procedure: 09/20/20 Pre-Operative Diagnosis: 1.2 cm soft tissue mass central upper forehead. Post-Operative Diagnosis: 1.2 cm submuscular bone mass central upper forehead. Surgery/Procedure Performed:: Excision 1.2 cm submuscular bone mass central upper forehead with 1.5 cm complex closure repair. Description of Surgical Findings:: 54 year old woman presents with a soft tissue mass central upper forehead that she has had for several years and has recently increased in size over the last several months. There is some discomfort when it is bumped. She denies fever. She denies numbness. She denies trauma. She denies recent infection. She denies headaches. Patient was informed of the risks and complications of the procedure including alternatives to surgery. These were discussed with the patient personally. Patient voices understanding and wishes to proceed. Some of the risks and complications were included in a form from the [employer]. Surgeon: Noam Clements program support specialist: None Type of Anesthesia: Local MAC (xylocaine with epinephrine and IV sedation.) Specimen's removed: Bone mass Drains: None. Estimated Blood Loss (mL): 2 ml. Description of Procedure: Patient was taken to OR in supine position and was given IV sedation. The forehead was prepped and draped in the usual fashion. SCD's were placed for DVT prophylaxis. Perioperative antibiotics were given intravenously. The forehead mass was infiltrated with xylocaine and epinephrine. After waiting 5 minutes for the anesthetic to take effect, a horizontal incision was made over the mass and dissection was done through the subcutaneous tissue. At the base of the wound was thinned out muscle because of pressure from the underlying submuscular mass. I the muscles bluntly and the mass was white and firm and clinically a bone mass. Using an osteotome and a mallet, I excised the bone mass off the skull. The remaining skull was clinically smooth without evidence of bone mass infiltration. The bone mass was sent to Pathology for analysis to rule out carcinoma. Hemostasis was obtained with electrocautery. I then closed the wound in a complex fashion with 5-0 Monocryl figure of eight interrupted sutures for the muscle layer. The deep dermis and subcutaneous tissue was approximated with 5-0 Monocryl interrupted sutures. The skin was approximated with 6-0 Prolene simple interrupted sutures. Steri-strips were applied followed by antibiotic ointment and a 2x2 compression gauze dressing. The length of the complex closure was 1.5 cm. Patient tolerated the procedure well and was sent to PACU in satisfactory condition. Patient will be sent home on antibiotics and pain medication. She will keep her head elevated during the initial postoperative period and maintain a lifting restriction (20 lbs). Patient will followup in a week for a wound check and for discussion of the pathology report and for removal of the sutures. Grafts/Implants Used: None. Complications None. Admit VTE Documentation VTE Present on Admission: No VTE Mechan Device Prophylaxis: SCD's VTE Pharm Prophylaxis ordered?: No Addendum Addendum: Surgery Charges CPT - 87631 ICD-10 - M89.8x8, R22.0 55774 M89.8x8, R22.0
--- NOTE | 2020-09-20 10:49 | PCM.DC ---
Discharge Instructions Diet Discharge Diet: No restrictions Activity Discharge Activity: May Shower (in two days.) and - (no heavy lifting. 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 Keep extremity elevated above heart level: - (elevate head.) Dressing / Incision Call your doctor if your incision/area has: Continuous Slow Oozing, Sudden Increased Bleeding, Increased Pain/ Swelling, Increased Redness, Foul Smelling Discharge and Swelling at the incision site Call your doctor if you observe: Fever of 101 or Higher, Coldness, Increased Pain, Shortness of breath, Chest pain, Calf discomfort and Uncontrolled pain Remove Dressing in: 2 days Cleanse incision/area with: - (may get the incisions wet in the shower in 2 days.) Follow Up Care Please Follow Up With: Noam Clements MD When: one week. call [phone] for appt. Test Results: Test results from this visit will be discussed in further detail at your follow-up appointment, if applicable. Discharge Plan Admission Primary Reason for Your Visit: outpatient surgery. Attending Provider: Noam Clements Primary Care Provider: Santhosh Abbott Discharge Orders/Prescriptions Prescriptions: New clindamycin HCl [Cleocin HCl] 300 mg capsule 300 mg PO TID Qty: 12 RF: 0 oxycodone-acetaminophen [Percocet] 5-325 mg tablet 1 tab PO Q6H PRN (Reason: pain (scale score 7-10)) 5 Days Qty: 20 RF: 0 Continued venlafaxine 75 mg capsule,extended release 24hr 75 mg PO QHS Qty: 90 RF: 3 olmesartan 20 mg tablet 20 mg PO DAILY Qty: 90 RF: 3 cholecalciferol (vitamin D3) 250 mcg (10,000 unit) capsule 400 mcg PO DAILY RF: 0 calcium carbonate [Calcium 600] 600 mg calcium (1,500 mg) tablet 600 mg PO DAILY RF: 0 Estroven Menopause 400 mcg-40 mg- 40 mg-100 mg Tablet 1 tab PO QHS RF: 0 Bystolic 20 mg tablet 20 mg PO DAILY RF: 0 fenofibrate 120 mg tablet 120 mg PO DAILY Qty: 90 RF: 3 atorvastatin 40 mg tablet 40 mg PO DAILY Qty: 90 RF: 3 Referrals / Follow Up: Santhosh Abbott MD [Primary Care Provider] - Disposition Disposition (needs filled in before D/C Order can be placed): Home, Self Care
== END 2020-09-20 11:09 | disposition home or self-care (01) ==
LOC: SDC 07:32 → AC 07:33
PROVIDERS: PCP Internal Medicine; Referring Provider Surgery; Visit Provider Surgery
PROC: (CPT 12051; principal; 2020-09-20 09:00)
DX: R22.0 Localized swelling, mass and lump, head (principal); M89.8X8 Other specified disorders of bone, other site; I10 Essential (primary) hypertension; E78.00 Pure hypercholesterolemia, unspecified; Z79.899 Other long term (current) drug therapy
CPT/HCPCS: 00210; 12051; 61500; 88304; 88305; J7120

== ENCOUNTER → 2021-01-09 13:43 | Outpatient (CLI) | payer OTHER, SELFPAY ==
--- NOTE | 2021-01-09 13:50 | RAD_ITS ---
STUDY: XR Knee Complete 4 Views or More 01/09/2021 3:05 PM REASON FOR EXAM: Female, 55 years old. PAIN TECHNIQUE: XR Knee Complete 4 Views or More COMPARISON: None. FINDINGS: Normal visualized distal femur. Normal visualized proximal tibia and fibula. Normal proximal tibiofibular articulation. There are atherosclerotic vascular calcifications. Normal medial femorotibial compartment. Normal lateral femorotibial compartment. Normal patellofemoral articulation. The soft tissue structures are unremarkable. RAD/Knee 4 or More Views IMPRESSION: There are no acute findings. Electronically Signed: Jase Dobbs MD at 15:06 EST , Service support ,
== END ==
PROVIDERS: PCP Internal Medicine; Visit Provider Nurse Practitioner Family
DX: M25.561 Pain in right knee (principal)
CPT/HCPCS: 73564

== ENCOUNTER 2021-01-28 11:00 | Outpatient (RCR) | payer OTHER, SELFPAY ==
[2019-12-27 10:53] VITALS: BMI 34.8
--- NOTE | 2020-04-25 15:13 | MASS.EVAL_ITS ---
Massage Therapy Evaluation: Initial Evaluation Date: 04/18/2020 SUBJECTIVE: Vonnie is a 54 year old female who was referred to the [facility] for a massotherapy evaluation by Dr. Osman with the diagnosis of cervicalgia. She presents today with the symptoms of pain, stiffness and tension in the neck, head, and shoulders. Vonnie reports having a past medical history of pain with muscle tension in her shoulders, upper back and hips. She reports having minimal improvement with exercise and stretching over the last few months. OBJECTIVE: Upon observation Vonnie has some posture issues with her head and shoulders forward from the neutral position in sitting and standing. After examination and palpation, I found Vonnie to have high muscle tension with tenderness and myofascial restrictions in her sub occipitals, levator scapulae, trapezius, rhomboids, scalenes, and thoracic paraspinals. The first treatment consisted of a one hour massage to her upper body with myofascial release, muscle stripping, trigger point compression techniques, and cervical manual traction. ASSESSMENT: I feel that Vonnie is a good candidate for massotherapy at this time. She had a favorable response to the first treatment with reduction in her muscle aches, pain and tension. She also had improvement in her cervical flexibility. PLAN: The plan of care was reviewed with the patient. The patient is to be seen on an as needed basis for a total of ten sessions with the recommendation of once every month for a one hour treatment.
--- NOTE | 2021-02-12 12:46 | MASS.DISCH ---
Massage Therapy Discharge Summary: Initial Evaluation Date: 04/18/20 Diagnosis: Cervicalgia No. of Visits: 4 Date of last visit: 01/28/21 This patient is being discharged from our care at the [facility]. Thank you, Mariangel Newman LMT
== END 2021-01-28 19:00 | disposition home or self-care (01) ==
LOC: MASS 11:00
PROVIDERS: PCP Internal Medicine; Referring Provider Nurse Practitioner Family; Visit Provider Nurse Practitioner Family
DX: M54.2 Cervicalgia (principal); G89.29 Other chronic pain; M62.838 Other muscle spasm
CPT/HCPCS: 97124

== ENCOUNTER 2021-05-29 11:03 | Outpatient (CLI) | payer OTHER, SELFPAY ==
[2021-05-29 13:00] LABS: Anion Gap 6 (5-15); BUN 23 mg/dL (7-18); Calcium,Total 10.1 mg/dL (8.5-10.1); Chloride 105 mmol/L (98-107); Creatinine, Serum 0.79 mg/dL (0.55-1.02); EST Glomerular Filtration Rate 80 mL/min (>60); Est Glom Filt Rate - Afr Amer 97 mL/min (>60); Glucose 102 mg/dL (74-106); Potassium 4.5 mmol/L (3.5-5.1); Sodium Level 137 mmol/L (136-145)
== END 2021-05-29 23:59 | disposition home or self-care (01) ==
LOC: BIMLAB 11:04
PROVIDERS: PCP Internal Medicine; Referring Provider Nurse Practitioner Family; Visit Provider Nurse Practitioner Family
DX: I10 Essential (primary) hypertension (principal)
CPT/HCPCS: 36415; 80048

== ENCOUNTER → 2021-12-10 | Outpatient (CLI) | payer OTHER, SELFPAY ==
[2021-12-10 13:05] LABS: Cholesterol 255 mg/dL (200); High Density Lipoprotein 52 mg/dL; Thyroid Stim Hormone (TSH) 1.77 uIU/mL (0.358-3.74); Triglycerides 244 mg/dL; Very Low Density Lipoprotein 49 mg/dL (5-40)
== END | disposition home or self-care (01) ==
LOC: BIMLAB 10:13
PROVIDERS: PCP Internal Medicine; Visit Provider Nurse Practitioner Family
DX: E78.5 Hyperlipidemia, unspecified (principal); I10 Essential (primary) hypertension
CPT/HCPCS: 36415; 80061; 84443

== ENCOUNTER → 2021-12-16 | Outpatient (CLI) | payer OTHER, SELFPAY | END | disposition home or self-care (01) | LOC: LABSPEC 10:01 | PROVIDERS: PCP Internal Medicine; Referring Provider Nurse Practitioner Family; Visit Provider Nurse Practitioner Family | DX: J02.9 Acute pharyngitis, unspecified (principal) | CPT/HCPCS: 87081 ==

== ENCOUNTER → 2021-12-31 | Outpatient (CLI) | payer OTHER, SELFPAY ==
--- NOTE | 2021-12-31 08:36 | US_ITS ---
STUDY: ABDOMINAL ULTRASOUND - RIGHT UPPER QUADRANT REASON FOR VISIT: Female, 56 years old ELEVATED LFTS TECHNIQUE: Ultrasound evaluation of the right upper quadrant was performed with real-time and static ervin-scale imaging. TECHNICAL QUALITY: Adequate. COMPARISON: None. FINDINGS: LIVER: Length 18.9 cm. Increased echogenicity with limited parenchymal detail. Main portal vein patent. GALLBLADDER: Surgically absent. EXTRAHEPATIC BILE DUCTS: Common bile duct 4 mm not dilated. PANCREAS: Visualized portions unremarkable. RIGHT KIDNEY: No hydronephrosis. ASCITES: None. US/Liver IMPRESSION: Hepatomegaly with fatty infiltration. Cholecystectomy. No biliary dilatation. Electronically Signed: Erin Harry MD at 7:54 EDT ,
--- NOTE | 2021-12-31 08:36 | BI_ITS ---
MAMMOGRAPHY - BILATERAL SCREENING REASON FOR EXAM: Female, 56 years old. Routine annual screening examination. PERTINENT HISTORY: Aunts with breast cancer. TECHNIQUE: Digital bilateral breast ezra (3D mammographic acquisition) in the CC and MLO projections. 2-D mediolateral oblique (MLO) and craniocaudad (CC) views of both breasts were obtained. CAD: Full Field Digital Mammography with Computer Added Detection was performed. COMPARISON: Comparison is made with prior study dated 09/14/2019 and 08/25/2018. FINDINGS: Breast Composition: There are scattered areas of fibroglandular density. There are no dominant masses or suspicious calcifications. Stable small benign-appearing bilateral axillary lymph nodes. No other significant abnormalities are identified. There has been no significant change since the prior study. BI/SCRN MAMM (CAD)W/EZRA BILAT IMPRESSION: Stable bilateral screening mammogram. Yearly follow-up mammogram recommended. (A) ASSESSMENT CATEGORY: BIRADS Category 2: Benign. A letter regarding these results will be sent to the patient by the facility within 30 days. Approximately 10% of breast cancers are not detected by mammography. A normal mammogram should not delay biopsy of a clinically suspicious abnormality. [id number] Electronically Signed: Pola García MD at 9:53 EDT ,
== END | disposition home or self-care (01) ==
LOC: US 08:33
PROVIDERS: PCP Internal Medicine; Visit Provider Nurse Practitioner Family
DX: K76.0 Fatty (change of) liver, not elsewhere classified (principal); R94.5 Abnormal results of liver function studies; Z90.49 Acquired absence of other specified parts of digestive tract; Z12.31 Encounter for screening mammogram for malignant neoplasm of breast; Z80.3 Family history of malignant neoplasm of breast
CPT/HCPCS: 76705; 77063; 77067

== ENCOUNTER 2022-01-01 13:44 | Outpatient (RCR) | payer OTHER, SELFPAY | END 2022-01-29 23:59 | LOC: NS 13:44 | PROVIDERS: PCP Internal Medicine; Referring Provider Nurse Practitioner Family; Visit Provider Nurse Practitioner Family | DX: E88.81 Metabolic syndrome and other insulin resistance (principal) | CPT/HCPCS: 97802 ==

== ENCOUNTER 2022-01-19 04:05 | Observation (INO) | payer OTHER, SELFPAY ==
[2022-01-19] VITALS (7 sets, daily range): BP systolic 101–128; BP diastolic 75–87; PULSE 74–86; RESP 15–18; TEMP 36.8–37; O2SAT 95–100; BMI 32.5; BMI 32.1
[2022-01-19 05:16] LABS: Absolute Lymphocyte Count 1.88 X10^3/uL (0.83-4.51); Absolute Neutrophil Count 4.2 X10^3/uL (2.0-7.7); Basophil# 0.03 X10^3/uL; Basophil% 0.4 % (0-1); Eosinophil# 0.26 X10^3/uL; Eosinophils% 3.7 % (0-5); Hematocrit 48.7 % (37-47); Hemoglobin 16.2 g/dL (12.0-15.0); Lymphocyte # 1.88 X10^3/ul (0.83-4.51); Lymphocyte % 26.9 % (19-41); Mean Corp Hgb Conc 33.3 g/dL (32-36); Mean Corpuscular Hgb 29.7 pg (27.0-32.0); Mean Corpuscular Volume 89.4 fL (81-99); Mean Platelet Vol. 11.2 fl (6.2-12.0); Monocyte# 0.62 X10^3/uL; Monocyte% 8.9 % (0-10); NRBC Flagged by Analyzer 0 % (0-5); Neutrophil # 4.17 X10^3/uL (2.7-7.7); Neutrophil % 59.7 % (47-70); Platelet Count 289 K/mm3 (150-450); RBC Distribution Width SD 42.5 fl (35.1-43.9); Red Blood Count 5.45 M/mm3 (4.2-5.4)
[2022-01-19] MEDS: 0.9% Normal Saline 1,000 ML 999 ML IV (05:51)
[2022-01-19 05:57] LABS: AST(SGOT) 26 U/L (15-37); Alanine Aminotransfer ALT/SGPT 60 U/L (13-56); Albumin, Serum 4.1 g/dL (3.2-5.0); Alkaline Phosphatase 97 U/L (45-117); Anion Gap 12 (5-15); BUN 68 mg/dL (7-18); BUN/Creat Ratio 31.9 RATIO (10-20); Bilirubin, Direct 0.15 mg/dL (0.00-0.30); Chloride 106 mmol/L (98-107); Creatinine, Serum 2.13 mg/dL (0.55-1.02); EST Glomerular Filtration Rate 26 mL/min (>60); Est Glom Filt Rate - Afr Amer 31 mL/min (>60); Estimated Creatinine Clearance 31.55 ml/min; Globulin 3.4 g/dL (2.2-4.2); Glucose 116 mg/dL (74-106); Lipase 106 U/L (73-393); Magnesium 2.4 mg/dL (1.6-2.6); Potassium 4.2 mmol/L (3.5-5.1); Protein, Total 7.5 g/dL (6.4-8.2); Sodium Level 134 mmol/L (136-145)
[2022-01-19 06:00] LABS: Lactic Acid 1.6 mmol/L (0.4-1.9)
--- NOTE | 2022-01-19 06:17 | EX.ED.DYSGE1 ---
HPI History of Present Illness Chief Complaint: General Illness Narrative Narrative: Patient is a 56-year-old female with past medical history of elevated liver function testing as well as hyperlipidemia who states that she began with bouts of nausea vomiting and diarrhea on Thursday. She denies any known sick contacts or travel outside the country recent antibiotic use or history of intestinal disorder. She states she was placed on Zofran and this is helped intermittently and she is been able to tolerate some small things like chicken broth and Jell-O. However this evening/morning she had return of symptoms. She also reports that she members getting up to go to the bathroom and found her on the ground next to the foot of the bed and he had shake her awake. He states when she awoke she knew who she was and where she was at and there was no obvious postictal phase or seizure activity. However with her worsening symptoms and now possible syncope she was brought in for evaluation [facility] Medical History (Updated 01/19/22 @ 06:[address] Samir Mathews, DO) Asthma Elevated LFTs Encounter for preventative adult health care examination Gastric reflux High cholesterol High triglycerides Hot flashes due to menopause HTN (hypertension) Hyperlipidemia Intervertebral disc protrusion Mass of face Non-smoker Post-menopausal Right knee pain Skull mass Wears glasses Home Medications calcium carbonate 600 mg calcium (1,500 mg) tablet (Calcium) 600 mg PO DAILY 04/04/20 [History Last Taken Unknown] cholecalciferol (vitamin D3) 250 mcg (10,000 unit) capsule 400 mcg PO DAILY 04/04/20 [History Last Taken Unknown] mvi,min-folic acid 400 mcg-black coh 40 mg-isoflav 40 mg-jujube tablet (Estroven Menopause) 1 tab PO QHS 09/13/20 [History Last Taken Unknown] olmesartan 40 mg tablet 40 mg PO DAILY #90 tabs 04/10/21 [Rx Last Taken Unknown] fenofibrate micronized 134 mg capsule 134 mg PO DAILY #90 caps 05/02/21 [Rx Last Taken Unknown] rosuvastatin 5 mg tablet 5 mg PO DAILY #90 tabs 06/04/21 [Rx Last Taken Unknown] zinc gluconate 50 mg tablet 50 mg PO DAILY 06/04/21 [History Last Taken Unknown] meloxicam 15 mg tablet 7.5 - 15 mg PO DAILY #90 tabs 07/24/21 [Rx Last Taken Unknown] venlafaxine 75 mg capsule,extended release 24 hr 75 mg PO QHS #90 caps 08/13/21 [Rx Last Taken Unknown] tirzepatide 5 mg/0.5 mL subcutaneous pen injector (Mounjaro) 5 mg (0.5 mL) subcut QWEEK #2 mL 12/17/21 [Rx Last Taken Unknown] amoxicillin 875 mg-potassium clavulanate 125 mg tablet 1 tab PO BID #14 tabs 12/20/21 [Rx Last Taken Unknown] ondansetron 4 mg disintegrating tablet 4 mg PO Q8H PRN nausea and vomiting #30 tabs 01/17/22 [Rx Last Taken Unknown] Allergy/AdvReac Type Severity Reaction Status Date / Time No Known Allergies Allergy Verified 01/19/22 04:18 Family History Mother Hypertension Asthma Father Hypertension Cancer of kidney Brother Hypertension Surgical History H/O: hysterectomy history anterior ceervical fusion History of foot surgery Hx of cholecystectomy Hx of colonoscopy Social History Smoking Status: Never smoker alcohol intake: never substance use type: does not use what type of physical activity do you participate in: walking additional social history: Does not take aspirin Does take Ibuprofen as needed ROS ROS ED Constitutional Constitutional ED: Denies chills or fever(s) ENT ENT ED: Denies sore throat Cardiovascular Cardiovascular: Denies chest pain Respiratory/Chest Respiratory/Chest: Denies cough or dyspnea Gastrointestinal Gastrointestinal: Reports diarrhea, nausea and vomiting; Denies abdominal pain Genitourinary Genitourinary ED: Denies dysuria Musculoskeletal Musculoskeletal: Denies myalgias Integumentary Denies rash Neurologic Neurologic: Reports other Details: Positive syncope ; Denies headache(s) Hematologic/Lymphatic Hematologic/Lymphatic: Denies easy bleeding or easy bruising EXAM Physical Exam Const Vital Signs: 01/19/22 04:09 Temperature 98.2 F Temperature Source Temporal Pulse Rate 78 Respiratory Rate 17 Blood Pressure 101/75 Blood Pressure Mean 83 Pulse Ox 99 Oxygen Delivery Method Room Air Positive well nourished and well developed General Appearance ED: well developed HEENT Reports dry mucous membranes HEENT Narrative: Mucous membranes are dry and tacky but there is no airway edema or compromise. No tongue or cheek biting noted Mouth ED: Yes dry mucous membranes Mouth: dry mucous membranes Eyes PERRL and EOMs intact bilaterally Neck supple Resp normal respiratory effort and clear to auscultation bilaterally Cardio regular rate and regular rhythm Rate: other Other Details: Radial pulses are plus 2 out of 4 bilaterally are equal and symmetric GI non-tender and non-distended GI Narrative: Abdomen is soft nontender nondistended with hyperactive bowel sounds. No voluntary guarding or rigidity. No pulsatile mass Auscultation: hyperactive bowel sounds Palpation: soft Extremity normal to inspection Neuro oriented x3 and CN's II-XII intact bilaterally Sensorium / Orientation: alert Psych mental status grossly normal Skin no rashes or lesions noted Skin Narrative: Skin turgor is increased MDM MDM MDM Narrative Medical decision making narrative: Patient presented to the ER stable vitals and a soft nonsurgical abdomen. Her history is most consistent with a viral stomach infection but it seems to be progressing to severe dehydration as she reported passing out after standing up to go to the bathroom this evening/morning. Basic labs were obtained which shows normal electrolytes but her creatinine has increased from a normal value of 0.8-2.13. This indicates severe dehydration and acute kidney injury. Secondary to this she will be given a liter fluid bolus and started on gentle hydration. Because of her worsening symptoms and orthostasis she will be admitted to the hospital for further care. Lab Data Attestation: I reviewed the patient's lab results. Labs: Laboratory Results - last 24 hr 01/19/22 01/19/22 01/19/22 04:41 04:41 05:15 WBC 7.0 RBC 5.45 H Hgb 16.2 H Hct 48.7 H MCV 89.4 MCH 29.7 MCHC 33.3 RDW Std Deviation 42.5 RDW Coeff of Barbara 13.0 Plt Count 289 MPV 11.2 Immature Gran % (Auto) 0.400 Neut % (Auto) 59.7 Lymph % (Auto) 26.9 [place] % (Auto) 8.9 Eos % (Auto) 3.7 Baso % (Auto) 0.4 Absolute Neuts (auto) 4.2 Absolute Lymphs (auto) 1.88 Nucleated RBC % 0 Sodium 134 L Potassium 4.2 Chloride 106 Carbon Dioxide 16.0 L Anion Gap 12 BUN 68 H Creatinine 2.13 H Estim Creat Clear Calc 31.55 Est GFR (MDRD) Af Amer 31 L Est GFR (MDRD) Non-Af 26 L BUN/Creatinine Ratio 31.9 H Glucose 116 H Lactic Acid 1.6 Calcium 10.0 Magnesium 2.4 Total Bilirubin 0.40 Direct Bilirubin 0.15 AST 26 ALT 60 H Alkaline Phosphatase 97 Total Protein 7.5 Albumin 4.1 Globulin 3.4 Lipase 106 Discharge Plan Dx/Rx/DC Orders Clinical Impression: Acute kidney injury, Nausea vomiting and diarrhea, Dehydration, Orthostatic syncope Disposition Disposition: Acute Care [facility]
--- NOTE | 2022-01-19 06:25 | HP.PCM.HOS_ITS ---
HPI - General General Date of Admission: 01/19/22 HPI Narrative TARAS SALAZAR, is a 56 F who presents to the hospital with a syncopal episode and MIN. She states that for about the last week she has been having some nausea and vomiting which then also progressed to diarrhea. She has been unable to keep anything down despite being on Zofran from her PCP. The main reason why she presented to the hospital today was because she remembers getting out of bed and then does not remember collapsing. Her found her passed out at the foot of the bed. No injuries that she can recall. She denies any headache, shortness of breath, chest pain. She has some abdominal cramping, and she states that she does feel little bit better since she has been getting IV fluids. PENDING SALE TO [facility] Medical History (Updated 01/19/22 @ 06:[address] Jayy Beatty MD) Asthma Elevated LFTs Encounter for preventative adult health care examination Gastric reflux High cholesterol High triglycerides Hot flashes due to menopause HTN (hypertension) Hyperlipidemia Intervertebral disc protrusion Mass of face Non-smoker Post-menopausal Right knee pain Skull mass Wears glasses Home Medications calcium carbonate 600 mg calcium (1,500 mg) tablet (Calcium) 600 mg PO DAILY 04/04/20 [History Last Taken Unknown] cholecalciferol (vitamin D3) 250 mcg (10,000 unit) capsule 400 mcg PO DAILY 04/04/20 [History Last Taken Unknown] mvi,min-folic acid 400 mcg-black coh 40 mg-isoflav 40 mg-jujube tablet (Estroven Menopause) 1 tab PO QHS 09/13/20 [History Last Taken Unknown] olmesartan 40 mg tablet 40 mg PO DAILY #90 tabs 04/10/21 [Rx Last Taken Unknown] fenofibrate micronized 134 mg capsule 134 mg PO DAILY #90 caps 05/02/21 [Rx Last Taken Unknown] rosuvastatin 5 mg tablet 5 mg PO DAILY #90 tabs 06/04/21 [Rx Last Taken Unknown] zinc gluconate 50 mg tablet 50 mg PO DAILY 06/04/21 [History Last Taken Unknown] meloxicam 15 mg tablet 7.5 - 15 mg PO DAILY #90 tabs 07/24/21 [Rx Last Taken Unknown] venlafaxine 75 mg capsule,extended release 24 hr 75 mg PO QHS #90 caps 08/13/21 [Rx Last Taken Unknown] tirzepatide 5 mg/0.5 mL subcutaneous pen injector (Mounjaro) 5 mg (0.5 mL) subcut QWEEK #2 mL 12/17/21 [Rx Last Taken Unknown] amoxicillin 875 mg-potassium clavulanate 125 mg tablet 1 tab PO BID #14 tabs 1 [Rx Last Taken Unknown] ondansetron 4 mg disintegrating tablet 4 mg PO Q8H PRN nausea and vomiting #30 tabs 01/17/22 [Rx Last Taken Unknown] Allergy/AdvReac Type Severity Reaction Status Date / Time No Known Allergies Allergy Verified 01/19/22 04:18 Family History Mother Hypertension Asthma Father Hypertension Cancer of kidney Brother Hypertension Surgical History H/O: hysterectomy history anterior ceervical fusion History of foot surgery Hx of cholecystectomy Hx of colonoscopy Social History Smoking Status: Never smoker alcohol intake: never substance use type: does not use what type of physical activity do you participate in: walking additional social history: Does not take aspirin Does take Ibuprofen as needed ROS Constitutional Constitutional: Denies chills, fatigue, fever(s) or malaise Eyes Eyes: Denies blurry vision ENT HEENT: Denies headache(s) or nasal discharge Cardiovascular Cardiovascular: Denies chest pain, dyspnea on exertion or syncope Respiratory/Chest Respiratory/Chest: Denies cough, shortness of breath at rest or shortness of breath with exertion Gastrointestinal Gastrointestinal: Reports diarrhea, nausea and vomiting; Denies constipation Genitourinary Genitourinary: Denies dysuria Neurologic Neurologic: Denies focal weakness, numbness or tremor(s) Psychiatric Psychiatric: Denies anxiety or depression Vital Signs Vital Signs Vital Signs: 01/19/22 04:09 Temperature 98.2 F Temperature Source Temporal Pulse Rate 78 Respiratory Rate 17 Blood Pressure 101/75 Blood Pressure Mean 83 Pulse Ox 99 Oxygen Delivery Method Room Air Weight Weight: 220 lb 10.923 oz Body Mass Index (BMI) 32.5 Physical Exam Narrative General: Alert, Oriented x3, Cooperative, No apparent distress HEENT: Atraumatic, PERRLA, EOMI, Normocephalic Oral: Dry mucosa Neck: Supple, No JVD Lungs: Clear to auscultation, Normal air movement, No rhonchi, No wheeze, No rales Cardiovascular: Regular rate, Regular Rhythm, Normal S1, Normal S2, No murmurs Abdomen: Soft, Non Tender, Non-Distended, No Hepato-splenomegaly Extremities: No edema, Capillary Refill Less than 3 Seconds Skin: No rashes, No breakdown Musculoskeletal: No Tenderness to Palpation of Joints or Extremities Neurological: Cranial nerves II-XII grossly intact, Motor Exam 5/5 strength throughout, Sensory exam intact to light touch and pain Psych/Mental Status: Normal Affect, Appropriate Results Lab / Micro Data Result Diagrams: 01/19/22 04:41 01/19/22 04:41 Labs: Laboratory Results - last 24 hr 01/19/22 04:41: WBC 7.0, RBC 5.45 H, Hgb 16.2 H, Hct 48.7 H, MCV 89.4, MCH 29.7, MCHC 33.3, RDW Std Deviation 42.5, RDW Coeff of Barbara 13.0, Plt Count 289, MPV 11.2, Immature Gran % (Auto) 0.400, Neut % (Auto) 59.7, Lymph % (Auto) 26.9, Douglas % (Auto) 8.9, Eos % (Auto) 3.7, Baso % (Auto) 0.4, Absolute Neuts (auto) 4.2, Absolute Lymphs (auto) 1.88, Nucleated RBC % 0 01/19/22 04:41: Sodium 134 L, Potassium 4.2, Chloride 106, Carbon Dioxide 16.0 L , Anion Gap 12, BUN 68 H, Creatinine 2.13 H, Estim Creat Clear Calc 31.55, Est GFR (MDRD) Af Amer 31 L, Est GFR (MDRD) Non-Af 26 L, BUN/Creatinine Ratio 31.9 H , Glucose 116 H, Calcium 10.0, Magnesium 2.4, Total Bilirubin 0.40, Direct Bilirubin 0.15, AST 26, ALT 60 H, Alkaline Phosphatase 97, Total Protein 7.5, Albumin 4.1, Globulin 3.4, Lipase 106 01/19/22 05:15: Lactic Acid 1.6 Assessment & Plan Assessment/Plan (1) Acute kidney injury: (2) Syncope: PLAN: Plan 1. MIN and syncope secondary to dehydration from a viral gastroenteritis ? No sick contacts at home ? Renal function is 2.13 her baseline is at 0.8 ? Continue with IV fluids ? Continue with antiemetics 2. HTN/HLD ? Blood pressures are stable, given her MIN will hold her ARB ? Can restart her cholesterol medication once verified ? She did have a lipid panel done in November with triglycerides over 200 and her cholesterol is over 200 and her LDL was 145 3. Anxiety/depression ? Stable ? Can resume her Effexor when verified DVT: Ambulation Charges/Coding Visit Charges Inpatient E&M: 40943 Init Hosp L2
[2022-01-19] MEDS: 0.9% Normal Saline 1,000 ML 150 ML IV (06:53)
[2022-01-19] MEDS: Ondansetron 4 MG/2 ML Vial IV (06:55)
[2022-01-19 07:11] LABS: Blood Gas Specimen Type VEN; O2 Delivery Device Room Air; VBG BASE EXCESS -10 mmol/L (-1.0-3.5); VBG Bicarbonate 16 mmol/L (22-26); VBG PO2 60 mmHg (25-40); VBG SO2 89 % (50-70); VBG TCO2 17 mmol/L (23-33); VBG pCO2 30.1 mmHg (41-51); VBG pH 7.33 (7.32-7.42)
[2022-01-19] MEDS: 0.9% Normal Saline 1,000 ML 100 ML IV ×2 (08:02→17:54)
--- NOTE | 2022-01-19 14:49 | CT_ITS ---
EXAM: CT HEAD WITHOUT INTRAVENOUS CONTRAST CLINICAL INDICATION: s/p syncopal episode, hit head, new headache TECHNIQUE: Multiple axial images were obtained of the head without intravenous contrast. CTDIvol = ( 44.99 ) mGy, DLP = ( 812.98 ) mGycm This CT exam was performed using one or more of the following dose reduction techniques: automated exposure control, adjustment of the mA and/or kV according to patient size, and/or use of iterative reconstruction technique. This report was created using [email or web address] technology. COMPARISON: None. FINDINGS: BRAIN AND EXTRA-AXIAL SPACES: Unremarkable. No intra- or extra-axial hemorrhage. No evidence of acute infarct. No intracranial mass or mass effect. There is preservation of the ervin/white matter interface. Posterior fossa structures are unremarkable. Ventricles are appropriate for age. No hydrocephalus. Basal cisterns are patent. BONES/JOINTS: Unremarkable. No discrete lytic or blastic abnormalities. SINUSES: Unremarkable as visualized. Clear. MASTOID AIR CELLS: Unremarkable. Clear. ORBITS: Visualized globes, extraocular muscles, optic nerves and retrobulbar fat appear unremarkable. CT/Brain/Head without Contrast IMPRESSION: Negative head/brain CT without intravenous contrast. Electronically Signed: Samir Yuan MD at 15:49 EST ,
[2022-01-19] MEDS: Acetaminophen 325 MG Tablet 650 MG PO ×2 (15:41→23:14)
[2022-01-19] MEDS: Atorvastatin Calcium 10 MG Tablet PO (19:39)
[2022-01-19] MEDS: MELATONIN 3 MG TABLET PO (23:14)
[2022-01-20] VITALS (8 sets, daily range): BP systolic 132–152; BP diastolic 89–102; PULSE 77–98; RESP 16–18; TEMP 36.4–36.6; O2SAT 96–99
[2022-01-20] MEDS: 0.9% Normal Saline 1,000 ML 100 ML IV ×2 (03:40→13:40)
[2022-01-20 06:05] LABS: Absolute Lymphocyte Count 1.91 X10^3/uL (0.83-4.51); Absolute Neutrophil Count 2.9 X10^3/uL (2.0-7.7); Basophil# 0.03 X10^3/uL; Basophil% 0.5 % (0-1); Eosinophil# 0.21 X10^3/uL; Eosinophils% 3.7 % (0-5); Hematocrit 40.5 % (37-47); Hemoglobin 13.5 g/dL (12.0-15.0); Lymphocyte # 1.91 X10^3/ul (0.83-4.51); Lymphocyte % 33.6 % (19-41); Mean Corp Hgb Conc 33.3 g/dL (32-36); Mean Corpuscular Hgb 30.1 pg (27.0-32.0); Mean Corpuscular Volume 90.4 fL (81-99); Mean Platelet Vol. 10.6 fl (6.2-12.0); Monocyte# 0.59 X10^3/uL; Monocyte% 10.4 % (0-10); NRBC Flagged by Analyzer 0 % (0-5); Neutrophil # 2.94 X10^3/uL (2.7-7.7); Neutrophil % 51.6 % (47-70); Platelet Count 217 K/mm3 (150-450); RBC Distribution Width SD 42.7 fl (35.1-43.9); Red Blood Count 4.48 M/mm3 (4.2-5.4); White Blood Count 5.7 K/mm3 (4.4-11.0)
[2022-01-20 06:46] LABS: Anion Gap 4 (5-15); BUN 39 mg/dL (7-18); BUN/Creat Ratio 35.5 RATIO (10-20); Calcium,Total 9.2 mg/dL (8.5-10.1); Chloride 113 mmol/L (98-107); EST Glomerular Filtration Rate 55 mL/min (>60); Est Glom Filt Rate - Afr Amer 67 mL/min (>60); Glucose 81 mg/dL (74-106); Potassium 4.4 mmol/L (3.5-5.1); Sodium Level 139 mmol/L (136-145)
--- NOTE | 2022-01-20 13:25 | CASEMGMT ---
DYLAN JENKINS assessment: Face to Face with patient for initial transition planning/care coordination assessment. DYLAN JENKINS introduced self and role at [facility], pt voices understanding and consents to assessment.? Pt is sitting up in chair in no distress on room air. Pt is A/Ox4 and answers all questions appropriately. Care providers, pharmacy,?and demographics verified. ? Presentation: Pt c/o ill x5 days, fatigued Admitting dx: MIN w/ syncope PCP: Milena Specialists: None Preferred Pharmacy: [facility] Insurance: [facility] Prescription Benefit:?[facility] Living Will/HPOA: Pt does not have LW/HPOA and declines AD info. LNOK: Kenneth Gilbert, Living Arrangements: Pt lives with in 1 story home and states no concerns at home. Pt is independent with ADL's. Transportation: Pt drives self and states no transportation concerns. DME/HHC: Pt states no current DME or need for any further DME. Pt states no hx of HHC or SNF. Pt states no concerns with going home at discharge. Pt works part time. Pt does not smoke cigarretes or drink ETOH. Pt states no further concerns/needs. CM to follow for any further discharge planning/needs. Advised pt to ask for CM if any further questions/concerns/needs arise, voices understanding. Pt Goal: Home? Plan[place] DYLAN JENKINS
[2022-01-20] MEDS: Acetaminophen 325 MG Tablet 650 MG PO (13:40)
--- NOTE | 2022-01-20 15:17 | PN.HOSP_ITS ---
Subjective Subjective Follow-up on acute kidney injury/syncope: Patient was seen and examined. She feels improved. Orthostatic vitals are negative. Denies any abdominal pain or diarrhea Objective Data Objective Data Vital Signs: Vital Signs Temp Pulse Resp BP Pulse Ox O2 Del Method 97.6 F L 88 16 142/89 H 96 Room Air 01/20/22 14:51 01/20/22 14:51 01/20/22 14:51 01/20/22 14:51 01/20/22 14:51 01/20/22 14:51 Oxygen Delivery Method Room Air Weight: 98.9 kg Body Mass Index (BMI) 32.1 Intake & Output: Intake and Output for Last 24 Hours 01/18/22 01/19/22 01/20/22 23:59 23:59 23:59 Intake Total 3222.50 / 3222.50 2340.00 / 2340.00 Balance 3222.50 / 3222.50 2340.00 / 2340.00 Lab / Micro Data Result Diagrams: 01/20/22 05:28 01/20/22 05:28 Labs: Laboratory Results - last 24 hr 01/20/22 05:28: WBC 5.7, RBC 4.48, Hgb 13.5, Hct 40.5, MCV 90.4, MCH 30.1, MCHC 33.3, RDW Std Deviation 42.7, RDW Coeff of Barbara 13.0, Plt Count 217, MPV 10.6, Immature Gran % (Auto) 0.200, Neut % (Auto) 51.6, Lymph % (Auto) 33.6, [place] % (Auto) 10.4 H, Eos % (Auto) 3.7, Baso % (Auto) 0.5, Absolute Neuts (auto) 2.9, Absolute Lymphs (auto) 1.91, Nucleated RBC % 0 01/20/22 05:28: Sodium 139, Potassium 4.4, Chloride 113 H, Carbon Dioxide 22.0, Anion Gap 4 L, BUN 39 H, Creatinine 1.10 H, Estim Creat Clear Calc 61.10, Est GFR (MDRD) Af Amer 67, Est GFR (MDRD) Non-Af 55 L, BUN/Creatinine Ratio 35.5 H, Glucose 81, Calcium 9.2 Micro: Microbiology 01/19/22 05:54 Nasal Secretion SARS-CoV-2 & FLU Antigen (Rapid) - Final Radiography Diagnostic Testing: Radiology Impression Brain CT 01/19/22 14:49 IMPRESSION: Negative head/brain CT without intravenous contrast. Electronically Signed: Samir Yuan MD at 15:49 EST , Physical Exam Narrative Physical exam: General: Alert, Oriented x3, Cooperative HEENT: Atraumatic Oral: Moist Mucosa Neck: Supple Lungs: Clear to auscultation Cardiovascular: HS I+II, regular, no murmurs Abdomen: Bowel Sounds Present, Soft, Non Tender Extremities: No edema Skin: No rashes, No breakdown Neurological: Grossly intact Psych/Mental Status: Appropriate Assessment & Plan Assessment/Plan (1) Acute kidney injury: (2) Syncope: PLAN: Plan 1.Acute syncope secondary to acute kidney injury Admitting to the brain was unremarkable Orthostatic vitals are negative today Continue to monitor 2. MIN second to dehydration from recent gastroenteritis Creatinine is improving down to 1.10 from 2.13 Baseline creatinine of 0.8 Continue to hold meloxicam and olmesartan Continue on IV fluids, trend labs in a.m. 3. Hypertension, fairly controlled, continue to monitor of olmesartan 4. Anxiety/depression, continue on Effexor 5. DVT prophylaxis?low risk, early ambulation recommended Charges/Coding Visit Charges Inpatient E&M: 30082 Subs Hosp L3
[2022-01-20] MEDS: MELATONIN 3 MG TABLET PO (22:08)
[2022-01-20] MEDS: Atorvastatin Calcium 10 MG Tablet PO (22:10)
[2022-01-20] MEDS: Venlafaxine XR 75 MG Capsule PO (22:12)
[2022-01-21] MEDS: 0.9% Normal Saline 1,000 ML 75 ML IV (00:24)
[2022-01-21 03:47] VITALS: BP 129/97; PULSE 90; RESP 18; TEMP 36.3; O2SAT 97
[2022-01-21 05:30] LABS: Absolute Neutrophil Count 4.9 X10^3/uL (2.0-7.7); Basophil# 0.04 X10^3/uL; Basophil% 0.5 % (0-1); Eosinophil# 0.21 X10^3/uL; Eosinophils% 2.7 % (0-5); Hematocrit 39.2 % (37-47); Hemoglobin 13.4 g/dL (12.0-15.0); Lymphocyte % 25.7 % (19-41); Mean Corp Hgb Conc 34.2 g/dL (32-36); Mean Corpuscular Hgb 30.1 pg (27.0-32.0); Mean Corpuscular Volume 88.1 fL (81-99); Mean Platelet Vol. 10.3 fl (6.2-12.0); Monocyte# 0.56 X10^3/uL; Monocyte% 7.2 % (0-10); NRBC Flagged by Analyzer 0 % (0-5); Neutrophil # 4.94 X10^3/uL (2.7-7.7); Neutrophil % 63.6 % (47-70); POSITIVE MORPHOLOGY YES; Platelet Count 229 K/mm3 (150-450); RBC Distribution Width CV 12.8 % (11.6-14.6); RBC Distribution Width SD 41.4 fl (35.1-43.9); Red Blood Count 4.45 M/mm3 (4.2-5.4); White Blood Count 7.8 K/mm3 (4.4-11.0)
[2022-01-21 05:32] LABS: Differential Indicated SCAN CRITERIA MET
[2022-01-21 05:58] LABS: ALB/GLOB Ratio 1.2 RATIO (0.9-2.4); AST(SGOT) 17 U/L (15-37); Alanine Aminotransfer ALT/SGPT 36 U/L (13-56); Albumin, Serum 3.5 g/dL (3.2-5.0); Alkaline Phosphatase 77 U/L (45-117); Anion Gap 5 (5-15); BUN 22 mg/dL (7-18); BUN/Creat Ratio 26.1 RATIO (10-20); Calcium,Total 9.6 mg/dL (8.5-10.1); Chloride 113 mmol/L (98-107); Creatinine, Serum 0.84 mg/dL (0.55-1.02); EST Glomerular Filtration Rate 75 mL/min (>60); Est Glom Filt Rate - Afr Amer 90 mL/min (>60); Estimated Creatinine Clearance 80.01 ml/min; Glucose 92 mg/dL (74-106); Potassium 4.1 mmol/L (3.5-5.1); Protein, Total 6.5 g/dL (6.4-8.2); Sodium Level 141 mmol/L (136-145)
[2022-01-21 06:05] LABS: Differential Comment SCANNED
--- NOTE | 2022-01-21 07:24 | DCINST_ITS ---
Discharge Instructions Diet Discharge Diet: Low fat / Low cholesterol and 2000 mg Sodium Diet Activity Discharge Activity: Return to Normal Activity Follow Up Care Test Results: Test results from this visit will be discussed in further detail at your follow- up appointment, if applicable. Discharge Plan Admission Admit Date/Time: 01/19/22 06:24 Primary Reason for Your Visit: MIN/syncope Attending Provider: Lisa Cole Primary Care Provider: Santhosh Abbott Consulting Providers: Jayy Beatty ; Cathy Siddiqui Instructions Additional Instructions / Restrictions: Continue to keep yourself hydrated. Follow-up with your PCP within 1 week for repeat blood work to follow-up on k idney function Discharge Orders/Prescriptions Prescriptions: Continued cholecalciferol (vitamin D3) 250 mcg (10,000 unit) capsule 400 mcg PO DAILY calcium carbonate [Calcium 600] 600 mg calcium (1,500 mg) tablet 600 mg PO DAILY zinc gluconate 50 mg tablet 50 mg PO DAILY venlafaxine 75 mg capsule,extended release 24hr 75 mg PO QHS fenofibrate micronized 134 mg capsule 134 mg PO DAILY olmesartan 40 mg tablet 40 mg PO DAILY rosuvastatin 5 mg tablet 5 mg PO DAILY Mounjaro 5 mg/0.5 mL pen injector 5 mg subcut QWEEK Discontinued meloxicam 15 mg tablet 7.5 - 15 mg PO DAILY Referrals / Follow Up: Santhosh Abbott MD [Primary Care Provider] - Disposition Disposition (needs filled in before D/C Order can be placed): Home, Self Care
--- NOTE | 2022-01-21 07:27 | DS.PCM_ITS ---
Providers Date of Admission: 01/19/22 Date of Discharge: 01/21/22 Primary Care Physician: Dr. Santhosh Abbott MD Reason For Visit: MIN WITH SYNCOPE Diagnosis Discharge Diagnosis (1) Acute kidney injury: Status: Acute Code(s): N17.9 - Acute kidney failure, unspecified (2) Syncope: Status: Acute Code(s): R55 - Syncope and collapse Plan 1.Acute syncope secondary to acute kidney injury 2. MIN second to dehydration from recent gastroenteritis 3. Hypertension 4. Anxiety/depression Medications at Discharge Home Medications calcium carbonate 600 mg calcium (1,500 mg) tablet (Calcium) 600 mg PO DAILY supplement 04/04/20 cholecalciferol (vitamin D3) 250 mcg (10,000 unit) capsule 400 mcg PO DAILY vit d 04/04/20 zinc gluconate 50 mg tablet 50 mg PO DAILY supplement 06/04/21 fenofibrate micronized 134 mg capsule 134 mg PO DAILY cholesterol 01/19/22 olmesartan 40 mg tablet 40 mg PO DAILY BP 01/19/22 rosuvastatin 5 mg tablet 5 mg PO DAILY cholesterol 01/19/22 tirzepatide 5 mg/0.5 mL subcutaneous pen injector (Mounjaro) 5 mg subcut QWEEK weight loss 01/19/22 venlafaxine 75 mg capsule,extended release 24 hr 75 mg PO QHS nerve pain 01/19/22 Hospital Course Operations None Procedures None Summary of Care Provided Minutes Spent on Discharge: 35 Hospital Course: 56-year-old female with past medical history hypertension, hyperlipidemia who comes in with a syncopal episode. Patient stated for the past 1 week she has had vomiting and diarrhea. She had been unable to eat or drink anything. She remembers getting out of bed on the day of admission. Her found her pas sed out at the foot of the bed. In the emergency room, he was found to relatively hypotensive with blood pressures in the 70s. She responded to IV fluids. She was also found to have a kidney injury with creatinine of 2.13, baseline 0.8. Patient was admitted to the progressive care unit and started on IV fluids. Creatinine improved to normal at time of discharge. Patient felt much improved. There was no nausea or vomiting during his hospital stay. Patient was strongly recommended to keep yourself hydrated. Her meloxicam was held. She was asked to resume her olmesartan the next day. She will follow-up with her primary care doctor within a week with repeat blood work. Physical Exam Narrative Physical exam: General: Alert, Oriented x3, Cooperative HEENT: Atraumatic Oral: Moist Mucosa Neck: Supple Lungs: Clear to auscultation Cardiovascular: HS I+II, regular, no murmurs Abdomen: Bowel Sounds Present, Soft, Non Tender Extremities: No edema Skin: No rashes, No breakdown Neurological: Grossly intact Psych/Mental Status: Appropriate Weight / BMI Weight Weight: 98.9 kg Body Mass Index (BMI) 32.1 ABG / Lab / Microbiology Data Result Diagrams: 01/21/22 05:18 01/21/22 05:18 Laboratory: Laboratory Results - last 24 hr 01/21/22 05:18: WBC 7.8, RBC 4.45, Hgb 13.4, Hct 39.2, MCV 88.1, MCH 30.1, MCHC 34.2, RDW Std Deviation 41.4, RDW Coeff of Barbara 12.8, Plt Count 229, MPV 10.3, Immature Gran % (Auto) 0.300, Neut % (Auto) 63.6, Lymph % (Auto) 25.7, Saline % (Auto) 7.2, Eos % (Auto) 2.7, Baso % (Auto) 0.5, Absolute Neuts (auto) 4.9, Absolute Lymphs (auto) 2.00, Nucleated RBC % 0, Differential Comment SCANNED 01/21/22 05:18: Sodium 141, Potassium 4.1, Chloride 113 H, Carbon Dioxide 23.0, Anion Gap 5, BUN 22 H, Creatinine 0.84, Estim Creat Clear Calc 80.01, Est GFR (MDRD) Af Amer 90, Est GFR (MDRD) Non-Af 75, BUN/Creatinine Ratio 26.1 H, Glucose 92, Calcium 9.6, Total Bilirubin 0.50, AST 17, ALT 36, Alkaline Phos phatase 77, Total Protein 6.5, Albumin 3.5, Globulin 3.0, Albumin/Globulin Ratio 1.2 Microbiology: Microbiology 01/19/22 05:54 Nasal Secretion SARS-CoV-2 & FLU Antigen (Rapid) - Final D/C Instructions Discharge Diet: Low fat / Low cholesterol and 2000 mg Sodium Diet Meaningful Use Info Meaningful Use Diagnoses (Choose all that apply): None applicable Discharge Plan Admission Admit Date/Time: 01/19/22 06:24 Primary Reason for Your Visit: MIN/syncope Attending Provider: Lisa Cole Primary Care Provider: Santhosh Abbott Consulting Providers: Jayy Beatty ; Cathy Siddiqui Instructions Additional Instructions / Restrictions: Continue to keep yourself hydrated. Follow-up with your PCP within 1 week for repeat blood work to follow-up on kidney function Discharge Orders/Prescriptions Prescriptions: Continued cholecalciferol (vitamin D3) 250 mcg (10,000 unit) capsule 400 mcg PO DAILY calcium carbonate [Calcium 600] 600 mg calcium (1,500 mg) tablet 600 mg PO DAILY zinc gluconate 50 mg tablet 50 mg PO DAILY venlafaxine 75 mg capsule,extended release 24hr 75 mg PO QHS fenofibrate micronized 134 mg capsule 134 mg PO DAILY olmesartan 40 mg tablet 40 mg PO DAILY rosuvastatin 5 mg tablet 5 mg PO DAILY Mounjaro 5 mg/0.5 mL pen injector 5 mg subcut QWEEK Discontinued meloxicam 15 mg tablet 7.5 - 15 mg PO DAILY Referrals / Follow Up: Santhosh Abbott MD [Primary Care Provider] - Disposition Disposition (needs filled in before D/C Order can be placed): Home, Self Care Charges/Coding Visit Charges Inpatient E&M: 16774 Disch Hosp
[2022-01-21 08:20] VITALS: BP 134/100; PULSE 82; RESP 16; TEMP 36.4; O2SAT 95
[2022-01-21] MEDS: Fenofibrate 145 MG Tablet PO (08:39)
[2022-01-21] MEDS: Acetaminophen 325 MG Tablet 650 MG PO (08:39)
== END 2022-01-21 09:52 | disposition home or self-care (01) | DRG 684 ==
LOC: ED 06:17 → PCU 06:43
PROVIDERS: Admitting Provider Family Medicine; Emergency Provider Emergency Medicine; PCP Internal Medicine; Visit Provider Internal Medicine
DX: E86.0 Dehydration (principal); N17.9 Acute kidney failure, unspecified; A08.4 Viral intestinal infection, unspecified; I10 Essential (primary) hypertension; E78.00 Pure hypercholesterolemia, unspecified; F41.9 Anxiety disorder, unspecified; I95.1 Orthostatic hypotension; F32.A Depression, unspecified; Z20.822 Contact with and (suspected) exposure to COVID-19; Z79.899 Other long term (current) drug therapy; Z79.1 Long term (current) use of non-steroidal anti-inflammatories (NSAID); K21.9 Gastro-esophageal reflux disease without esophagitis; R55 Syncope and collapse
CPT/HCPCS: 36415; 70450; 80048; 80053; 80076; 82803; 83605; 83690; 83735; 85025; 87428; 96361; 96374; 97802; 99218; 99285; J7030; A4216; G0378; J2405

== ENCOUNTER → 2022-01-28 | Outpatient (CLI) | payer OTHER, SELFPAY ==
[2022-01-28 13:04] LABS: Anion Gap 6 (5-15); BUN 20 mg/dL (7-18); BUN/Creat Ratio 22.1 RATIO (10-20); Calcium,Total 10.4 mg/dL (8.5-10.1); Chloride 105 mmol/L (98-107); EST Glomerular Filtration Rate 69 mL/min (>60); Est Glom Filt Rate - Afr Amer 84 mL/min (>60); Glucose 99 mg/dL (74-106); Potassium 4.1 mmol/L (3.5-5.1); Sodium Level 136 mmol/L (136-145)
== END | disposition home or self-care (01) ==
LOC: BIMLAB 11:00
PROVIDERS: PCP Internal Medicine; Referring Provider Nurse Practitioner Family; Visit Provider Nurse Practitioner Family
DX: N17.9 Acute kidney failure, unspecified (principal)
CPT/HCPCS: 36415; 80048

== ENCOUNTER 2022-02-04 14:31 | Outpatient (RCR) | payer OTHER, SELFPAY | END 2022-03-01 23:59 | LOC: NS 14:31 | PROVIDERS: PCP Internal Medicine; Referring Provider Nurse Practitioner Family; Visit Provider Nurse Practitioner Family | DX: E88.81 Metabolic syndrome and other insulin resistance (principal) | CPT/HCPCS: 97803 ==

== ENCOUNTER → 2022-02-11 | Outpatient (CLI) | payer OTHER, SELFPAY ==
[2022-02-11 14:42] LABS: Anion Gap 11 (5-15); BUN 25 mg/dL (7-18); BUN/Creat Ratio 28.1 RATIO (10-20); Calcium,Total 10.3 mg/dL (8.5-10.1); Chloride 107 mmol/L (98-107); Creatinine, Serum 0.89 mg/dL (0.55-1.02); EST Glomerular Filtration Rate 70 mL/min (>60); Est Glom Filt Rate - Afr Amer 85 mL/min (>60); Glucose 96 mg/dL (74-106); Potassium 4.4 mmol/L (3.5-5.1); Sodium Level 138 mmol/L (136-145)
== END | disposition home or self-care (01) ==
LOC: BIMLAB 11:04
PROVIDERS: PCP Internal Medicine; Referring Provider Nurse Practitioner Family; Visit Provider Nurse Practitioner Family
DX: N17.9 Acute kidney failure, unspecified (principal)
CPT/HCPCS: 36415; 80048

== ENCOUNTER 2022-03-20 14:29 | Outpatient (RCR) | payer OTHER, SELFPAY | END 2022-04-01 23:59 | LOC: NS 14:29 | PROVIDERS: PCP Internal Medicine; Referring Provider Nurse Practitioner Family; Visit Provider Nurse Practitioner Family | DX: E88.81 Metabolic syndrome and other insulin resistance (principal); Z71.3 Dietary counseling and surveillance | CPT/HCPCS: 97803 ==

== ENCOUNTER 2022-04-08 15:22 | Outpatient (RCR) | payer OTHER, SELFPAY | END 2022-04-29 23:59 | LOC: NS 15:22 | PROVIDERS: PCP Internal Medicine; Referring Provider Nurse Practitioner Family; Visit Provider Nurse Practitioner Family | DX: E88.81 Metabolic syndrome and other insulin resistance (principal) | CPT/HCPCS: 97803 ==

== ENCOUNTER 2022-04-30 15:36 | Outpatient (RCR) | payer OTHER, SELFPAY | END 2022-05-30 23:59 | LOC: NS 15:36 | PROVIDERS: PCP Internal Medicine; Referring Provider Nurse Practitioner Family; Visit Provider Nurse Practitioner Family | DX: E88.81 Metabolic syndrome and other insulin resistance (principal); Z71.3 Dietary counseling and surveillance | CPT/HCPCS: 97803 ==

== ENCOUNTER → 2022-06-09 | Outpatient (CLI) | payer OTHER, SELFPAY ==
[2022-06-09 12:30] LABS: Cholesterol 152 mg/dL (200); High Density Lipoprotein 70 mg/dL; Triglycerides 62 mg/dL; Very Low Density Lipoprotein 12 mg/dL (5-40)
[2022-06-09 12:41] LABS: PTHIN 53.2 pg/mL (18.4-80.1)
[2022-06-09 13:02] LABS: Vitamin D,25 Hydroxy 32.5 ng/mL
== END | disposition home or self-care (01) ==
LOC: BIMLAB 08:57
PROVIDERS: PCP Internal Medicine; Referring Provider Nurse Practitioner Family; Visit Provider Nurse Practitioner Family
DX: E78.00 Pure hypercholesterolemia, unspecified (principal); E83.52 Hypercalcemia
CPT/HCPCS: 36415; 80061; 82306; 83970

== ENCOUNTER → 2022-12-09 | Outpatient (CLI) | payer OTHER, SELFPAY ==
[2022-12-09 12:14] LABS: Absolute Lymphocyte Count 1.94 X10^3/uL (0.83-4.51); Absolute Neutrophil Count 2.4 X10^3/uL (2.0-7.7); Basophil# 0.02 X10^3/uL; Basophil% 0.4 % (0-1); Eosinophil# 0.14 X10^3/uL; Eosinophils% 2.9 % (0-5); Hematocrit 40.4 % (37-47); Hemoglobin 13.4 g/dL (12.0-15.0); Lymphocyte # 1.94 X10^3/ul; Lymphocyte % 40.2 % (19-41); Mean Corp Hgb Conc 33.2 g/dL (32-36); Mean Corpuscular Hgb 30.1 pg (27.0-32.0); Mean Corpuscular Volume 90.8 fL (81-99); Mean Platelet Vol. 10.1 fl (6.2-12.0); Monocyte# 0.36 X10^3/uL; Monocyte% 7.5 % (0-10); NRBC Flagged by Analyzer 0 % (0-5); Neutrophil # 2.35 X10^3/uL (2.7-7.7); Neutrophil % 48.6 % (47-70); Platelet Count 244 K/mm3 (150-450); RBC Distribution Width SD 43.2 fl (35.1-43.9); Red Blood Count 4.45 M/mm3 (4.2-5.4); White Blood Count 4.8 K/mm3 (4.4-11.0)
[2022-12-09 12:31] LABS: Color, Urine Yellow (Yellow); Glucose, Dipstick Normal (Normal); Ketone-Dipstick Negative (Negative); Leukocyte Esterase-Dipstick Negative /ul (Negative); Nitrite-Dipstick Negative (Negative); Occult Blood-Urine Negative /ul (Negative); Protein-Dipstick Negative (Negative); Urine Bilirubin Dipstick Negative (Negative); Urine Clarity Clear (Clear); Urine Urobilinogen Normal (Normal)
[2022-12-09 13:03] LABS: ALB/GLOB Ratio 1.1 RATIO (0.9-2.4); AST(SGOT) 18 U/L (15-37); Alanine Aminotransfer ALT/SGPT 35 U/L (13-56); Albumin, Serum 3.4 g/dL (3.2-5.0); Alkaline Phosphatase 97 U/L (45-117); Anion Gap 7 (5-15); BUN 13 mg/dL (7-18); BUN/Creat Ratio 21.7 RATIO (10-20); Bilirubin, Direct 0.09 mg/dL (0.00-0.30); Chloride 107 mmol/L (98-107); Cholesterol 205 mg/dL (200); EST Glomerular Filtration Rate 111 mL/min (>60); Est Glom Filt Rate - Afr Amer 134 mL/min (>60); Globulin 3.1 g/dL (2.2-4.2); Glucose 97 mg/dL (74-106); High Density Lipoprotein 67 mg/dL; LDH 158 U/L (84-246); Phosphorus 3.1 mg/dL (2.5-4.9); Potassium 4.4 mmol/L (3.5-5.1); Protein, Total 6.5 g/dL (6.4-8.2); Sodium Level 137 mmol/L (136-145); Triglycerides 134 mg/dL; Uric Acid 5.4 mg/dL (2.6-6.0); Very Low Density Lipoprotein 27 mg/dL (5-40)
== END | disposition home or self-care (01) ==
LOC: BIMLAB 10:14
PROVIDERS: PCP Internal Medicine; Visit Provider Internal Medicine
DX: Z00.00 Encounter for general adult medical examination without abnormal findings (principal)
CPT/HCPCS: 36415

== ENCOUNTER → 2023-01-06 | Outpatient (CLI) | payer OTHER, SELFPAY ==
--- NOTE | 2023-01-06 12:41 | BI_ITS ---
MAMMOGRAPHY - BILATERAL SCREENING REASON FOR EXAM: Female, 57 years old. Routine annual screening examination. PERTINENT HISTORY: Aunt with breast cancer. TECHNIQUE: Digital bilateral breast ezra (3D mammographic acquisition) in the CC and MLO projections. 2-D mediolateral oblique (MLO) and craniocaudad (CC) views of both breasts were obtained. CAD: Full Field Digital Mammography with Computer Added Detection was performed. COMPARISON: Comparison is made with prior study December 31, 2021 and September 14, 2019. FINDINGS: Breast Composition: There are scattered areas of fibroglandular density. There are no dominant masses or suspicious calcifications. No other significant abnormalities are identified. There has been no significant change since the prior study. BI/SCRN MAMM (CAD)W/EZRA BILAT IMPRESSION: Stable bilateral screening mammogram. Yearly follow-up mammogram recommended. (A) ASSESSMENT CATEGORY: BIRADS Category 1: Negative. A letter regarding these results will be sent to the patient by the facility within 30 days. Approximately 10% of breast cancers are not detected by mammography. A normal mammogram should not delay biopsy of a clinically suspicious abnormality. [id number] Electronically Signed: Pola García MD at 13:48 EST ,
== END | disposition home or self-care (01) ==
LOC: OPBI 12:39
PROVIDERS: PCP Internal Medicine; Visit Provider Nurse Practitioner Family
DX: Z12.31 Encounter for screening mammogram for malignant neoplasm of breast (principal)
CPT/HCPCS: 77063; 77067

== ENCOUNTER 2023-07-09 12:54 | Outpatient (CLI) | payer OTHER, SELFPAY ==
[2023-07-09 17:48] LABS: Absolute Lymphocyte Count 1.59 X10^3/uL (0.83-4.51); Absolute Neutrophil Count 2.6 X10^3/uL (2.0-7.7); Basophil# 0.03 X10^3/uL; Basophil% 0.6 % (0-1); Eosinophil# 0.13 X10^3/uL; Eosinophils% 2.7 % (0-5); Hematocrit 43.5 % (37-47); Hemoglobin 14.1 g/dL (12.0-15.0); Lymphocyte # 1.59 X10^3/ul (0.83-4.51); Lymphocyte % 33.2 % (19-41); Mean Corp Hgb Conc 32.4 g/dL (32-36); Mean Corpuscular Volume 89.5 fL (81-99); Mean Platelet Vol. 9.9 fl (6.2-12.0); Monocyte# 0.42 X10^3/uL; Monocyte% 8.8 % (0-10); NRBC Flagged by Analyzer 0 % (0-5); Neutrophil # 2.61 X10^3/uL (2.7-7.7); Neutrophil % 54.5 % (47-70); Platelet Count 264 K/mm3 (150-450); RBC Distribution Width CV 12.2 % (11.6-14.6); RBC Distribution Width SD 40.3 fl (35.1-43.9); Red Blood Count 4.86 M/mm3 (4.2-5.4); White Blood Count 4.8 K/mm3 (4.4-11.0)
[2023-07-09 18:16] LABS: Vitamin B12 975 pg/mL (211-911); Vitamin D,25 Hydroxy 31.8 ng/mL
[2023-07-09 18:22] LABS: ALB/GLOB Ratio 1.2 RATIO (0.9-2.4); AST(SGOT) 28 U/L (15-37); Alanine Aminotransfer ALT/SGPT 32 U/L (13-56); Albumin, Serum 3.8 g/dL (3.2-5.0); Alkaline Phosphatase 108 U/L (45-117); Anion Gap 5 (5-15); BUN 16 mg/dL (7-18); BUN/Creat Ratio 25.4 RATIO (10-20); Calcium,Total 9.7 mg/dL (8.5-10.1); Chloride 106 mmol/L (98-107); Cholesterol 208 mg/dL (200); Creatinine, Serum 0.63 mg/dL (0.55-1.02); EST Glomerular Filtration Rate 104 mL/min (>60); Est Glom Filt Rate - Afr Amer 126 mL/min (>60); Globulin 3.3 g/dL (2.2-4.2); Glucose 98 mg/dL (74-106); High Density Lipoprotein 64 mg/dL; Potassium 4.3 mmol/L (3.5-5.1); Protein, Total 7.1 g/dL (6.4-8.2); Sodium Level 139 mmol/L (136-145); Thyroid Stim Hormone (TSH) 1.16 uIU/mL (0.358-3.74); Triglycerides 279 mg/dL; Very Low Density Lipoprotein 56 mg/dL (5-40)
== END 2023-07-09 23:59 | disposition home or self-care (01) ==
LOC: MTLAB 12:55
PROVIDERS: PCP Nurse Practitioner Family; Referring Provider Nurse Practitioner Family; Visit Provider Nurse Practitioner Family
DX: E66.9 Obesity, unspecified (principal); E56.9 Vitamin deficiency, unspecified; I10 Essential (primary) hypertension; E78.5 Hyperlipidemia, unspecified
CPT/HCPCS: 36415; 80053; 80061; 82306; 82607; 84443; 85025

== ENCOUNTER → 2023-07-17 | Outpatient (CLI) | payer OTHER, SELFPAY ==
--- NOTE | 2023-07-17 14:02 | EKG12_ITS ---
Test Reason : WEIGHT LOSS Blood Pressure : / mmHG Vent. Rate : 089 BPM Atrial Rate : 089 BPM P-R Int : 170 ms QRS Dur : 074 ms QT Int : 360 ms P-R-T Axes : 034 068 042 degrees QTc Int : 438 ms Normal sinus rhythm Normal ECG Confirmed by Jaylen Buchanan ([id number]), index editor DEEPAK VALLEJO ([id number]) on 07/20/2023 9:08:16 AM Referred By: Dae Osman Confirmed By:Jaylen Buchanan
== END | disposition home or self-care (01) ==
LOC: PSN 13:59
PROVIDERS: PCP Nurse Practitioner Family; Referring Provider Nurse Practitioner Family; Visit Provider Nurse Practitioner Family
DX: N95.1 Menopausal and female climacteric states (principal)
CPT/HCPCS: 93005

== ENCOUNTER 2024-03-08 22:36 | Emergency (ER) | payer OTHER, SELFPAY ==
[2024-03-08 22:39] VITALS: BP 121/68; PULSE 96; RESP 20; TEMP 36.6; O2SAT 96; BMI 34.2
--- NOTE | 2024-03-08 22:54 | EX.ED.GENINJ ---
HPI History of Present Illness Chief Complaint: Nausea/Vomiting/Diarrhea Narrative Narrative: Patient is a 58-year-old female past medical history of hyperlipidemia, hypertension, asthma who presents to the emergency department chief complaint of nausea vomiting diarrhea. Patient states that earlier this evening she started to feel unwell. She states that she has vomited multiple times therefore she came here for the valuation management. Patient denies any recent sick contacts. Patient denies any abdominal pain. PFSH [facility] Medical History Elevated LFTs Hyperlipidemia Right knee pain Encounter for preventative adult health care examination Skull mass Wears glasses Post-menopausal Gastric reflux Non-smoker Hot flashes due to menopause Mass of face Intervertebral disc protrusion High triglycerides High cholesterol Asthma HTN (hypertension) Home Medications ?Medication ?Instructions ?Recorded ?Last Taken ?Type calcium carbonate (Calcium 600) 600 mg PO DAILY supplement 04/04/20 Unknown History cholecalciferol (vitamin D3) 250 400 mcg PO DAILY vit d 04/04/20 Unknown History mcg (10,000 unit) capsule rosuvastatin 5 mg tablet 5 mg PO DAILY cholesterol #90 tabs 02/18/22 Unknown Rx scopolamine base 1 mg over 3 days 1 patch transdermal Q3D PRN motion 03/12/22 Unknown Rx transdermal patch sickness #24 ea venlafaxine 75 mg capsule,extended 75 mg PO QHS nerve pain #90 caps 03/12/22 Unknown Rx release 24 hr olmesartan 5 mg tablet 5 mg PO BID BP #180 tabs 08/21/22 Unknown Rx dicyclomine 20 mg tablet 20 mg PO TID #30 tabs 03/09/24 Unknown Rx ondansetron 4 mg disintegrating 4 mg PO Q6H PRN nausea and 03/09/24 Unknown Rx tablet vomiting #30 tabs Allergy/AdvReac Type Severity Reaction Status Date / Time No Known Allergies Allergy Verified 03/08/24 22:38 Family History Mother Hypertension Asthma Father Hypertension Cancer of kidney Brother Hypertension Surgical History Hx of colonoscopy History of foot surgery history anterior ceervical fusion Hx of cholecystectomy H/O: hysterectomy Social History Smoking Status: Never smoker alcohol intake: never substance use type: does not use what type of physical activity do you participate in: walking additional social history: Does not take aspirin Does take Ibuprofen as needed ROS ROS ED ROS Narrative Constitutional: Complains of chills denies any fevers, headache, lightheadedness, dizziness Cardiovascular: Denies chest pain or palpitations Respiratory: Denies coughing wheezing shortness of breath Abdomen: Complains of nausea vomiting diarrhea as noted above denies any abdominal pain : Denies any urinary symptoms Neurological: Denies any numbness, wheeze, tingling Musculoskeletal: Denies back pain Skin: Denies rashes or lesions EXAM Physical Exam Narrative Exam Narrative: General: Patient lying in bed does appear to feel unwell overall Head: Atraumatic, normocephalic Eyes: PERRL bilaterally, EOMI bilateral, no conjunctival injection noted Neck: Soft, supple, trachea midline Cardiovascular: Regular rate and rhythm no murmurs gallops rubs noted Respiratory: Clear to auscultation bilaterally Abdomen: Soft, nondistended, no tenderness to palpation, bowel sounds present x 4 Extremities: +5/5 strength noted in the bilateral upper and lower extremities Neurological: Patient following commands knew that she was at [facility] year is 2023 Skin: Warm, dry, intact no rashes or lesions noted Const Vital Signs: 03/08/24 22:39 Temperature 98 F Temperature Source Axillary Pulse Rate 96 Respiratory Rate 20 H Blood Pressure 121/68 H Blood Pressure Mean 85 Pulse Ox 96 Oxygen Delivery Method Room Air MDM MDM MDM Narrative Medical decision making narrative: Patient is a 58-year-old female who presented to the emergency department with chief complaint of nausea vomiting diarrhea. On the differential diagnose includes but not limited to COVID, influenza, other viral gastroenteritis. Patient be given Zofran. Patient will then be reevaluated. Patient test positive for COVID-19. Reevaluation the patient and she feels better she would like to go home at this point time. Patient given prescription for Zofran and Bentyl. She was advised to continue supportive care and return with worsening symptoms or concerns. She is agreeable to plan as well as significant other at bedside she would like to go home all question concerns answered she is discharged home in stable condition. Patient was advised to follow with her primary care physician as well. Discharge Plan Triage Chief Complaint: Nausea/Vomiting/Diarrhea ED Provider: [facility] Dx/Rx/DC Orders Clinical Impression: COVID-19, Viral gastroenteritis Prescriptions: New ondansetron 4 mg tablet,disintegrating 4 mg PO Q6H PRN (Reason: nausea and vomiting) Qty: 30 0RF dicyclomine 20 mg tablet 20 mg PO TID Qty: 30 0RF No Action cholecalciferol (vitamin D3) 250 mcg (10,000 unit) capsule 400 mcg PO DAILY calcium carbonate [Calcium 600] 600 mg calcium (1,500 mg) tablet 600 mg PO DAILY scopolamine base 1 mg over 3 days patch 3 day 1 patch transdermal Q3D PRN (Reason: motion sickness) Qty: 24 2RF venlafaxine 75 mg capsule,extended release 24hr 75 mg PO QHS Qty: 90 3RF rosuvastatin 5 mg tablet 5 mg PO DAILY Qty: 90 3RF olmesartan 5 mg tablet 5 mg PO BID Qty: 180 1RF Primary Care Provider: Dae Osman Referrals: Dae Osman, CMM OPERATOR-C [Primary Care Provider] - Activity Restrictions/Additional Instructions: Follow-up with your doctor in outpatient setting. Continue to stay hydrated and use prescriptions as prescribed. Return with worsening symptoms or any concerns. He tested positive for COVID-19. Print Language: Russian Disposition Disposition: Home, Self Care
[2024-03-08] MEDS: Ondansetron ODT 4 MG Tablet PO (23:05)
[2024-03-09 00:29] VITALS: BP 100/84; PULSE 98; RESP 18; TEMP 36.7; O2SAT 94
== END 2024-03-09 00:31 | disposition home or self-care (01) ==
PROVIDERS: Emergency Provider Emergency Medicine; PCP Nurse Practitioner Family; Visit Provider Emergency Medicine
DX: U07.1 COVID-19 (principal); A08.4 Viral intestinal infection, unspecified; I10 Essential (primary) hypertension; E78.00 Pure hypercholesterolemia, unspecified; Z79.899 Other long term (current) drug therapy
CPT/HCPCS: 87631; 99284

== ENCOUNTER → 2024-05-05 | Outpatient (CLI) | payer OTHER, SELFPAY ==
--- NOTE | 2024-05-05 11:51 | BI_ITS ---
PROCEDURE: SCRN MAMM (CAD)W/EZRA BILAT REASON FOR EXAM: F, Age 58 y/o, aunts with breast cancer. Annual mammographic follow-up. TECHNIQUE: Bilateral screening digital breast tomosynthesis with 2D and 3D images. Computer aided detection. COMPARISON: Prior exam(s) dating back to January 06, 2023.. FINDINGS: There are scattered areas of fibroglandular density. Stable examination. No suspicious masses, areas of developing architectural distortion, or suspicious calcifications. BI/SCRN MAMM (CAD)W/EZRA BILAT IMPRESSION: BI-RADS 1: NEGATIVE. RECOMMEND ANNUAL MAMMOGRAPHIC SCREENING. Follow-up code: Routine Follow-up The patient will be notified of the results by letter. Reading Location: [id number]
== END | disposition home or self-care (01) ==
LOC: OPBI 11:48
PROVIDERS: PCP Nurse Practitioner Family; Referring Provider Nurse Practitioner Family; Visit Provider Nurse Practitioner Family
DX: Z12.31 Encounter for screening mammogram for malignant neoplasm of breast (principal)
CPT/HCPCS: 77063; 77067

== ENCOUNTER → 2024-07-04 | Outpatient (CLI) | payer OTHER, SELFPAY | END | disposition home or self-care (01) | LOC: SL 10:14 | PROVIDERS: PCP Nurse Practitioner Family; Referring Provider Nurse Practitioner Family; Visit Provider Nurse Practitioner Family | DX: G47.10 Hypersomnia, unspecified (principal) | CPT/HCPCS: 95806 ==

== ENCOUNTER → 2024-07-04 | Outpatient (CLI) | payer OTHER, SELFPAY ==
[2024-07-04 11:20] LABS: Hemoglobin A1c 5.7 % (<=5.6)
[2024-07-04 12:14] LABS: Anion Gap 12 (5-15); BUN 17 mg/dL (4-19); BUN/Creat Ratio 25.1 RATIO (10-20); Calcium,Total 9.7 mg/dL (7.6-11.0); Carbon Dioxide 20.8 mmol/L (21.0-32.0); Chloride 105 mmol/L (98-108); Creatinine, Serum 0.68 mg/dL (0.70-1.20); EST Glomerular Filtration Rate 102 (>60); Glucose 116 mg/dL (70-99); Sodium Level 138 mmol/L (133-145); Vitamin B12 558 pg/mL (180-914); Vitamin D,25 Hydroxy 35.8 ng/mL (30-100)
[2024-07-05 04:07] LABS: Thyroid Peroxidase AB < 9 IU/mL (0-34)
== END | disposition home or self-care (01) ==
LOC: LAB 10:12
PROVIDERS: PCP Nurse Practitioner Family; Referring Provider Nurse Practitioner Family; Visit Provider Nurse Practitioner Family
DX: Z13.228 Encounter for screening for other metabolic disorders (principal); I10 Essential (primary) hypertension; E56.9 Vitamin deficiency, unspecified
CPT/HCPCS: 36415; 80048; 82306; 82607; 83036; 84443; 86376

== ENCOUNTER → 2024-08-23 | Outpatient (CLI) | payer OTHER, SELFPAY ==
--- NOTE | 2024-08-23 14:23 | NEURO ---
NCS and/or EMG Patient Report Ordering Doctor: Laury Lee DATE OF SERVICE: 08/23/24 Clinical Summary: 58 year old female patient with symptoms of numbness and tingling in the left hand. Nerve Conduction Studies Summary: Nerve conduction studies were performed in the left upper extremity. The left median-D2 SNAP distal latency was prolonged. Needle Examination Summary: Needle examination of select muscles of the left upper extremity was normal. Impression: This is an abnormal study. 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 Multi Select Codes Neurology Neurology Interp Codes: 03232-95 Musc test done w/n test comp (interp) (1) and 90833-76 Nrv cndj tst 5-6 studies (interp)
== END | disposition home or self-care (01) ==
LOC: PSN 13:40
PROVIDERS: PCP Nurse Practitioner Family; Referring Provider Nurse Practitioner Family; Visit Provider Nurse Practitioner Family
DX: R20.0 Anesthesia of skin (principal)
CPT/HCPCS: 95886; 95909

== ENCOUNTER → 2024-10-25 | Outpatient (CLI) | payer OTHER, SELFPAY ==
[2024-10-25 13:27] LABS: AST(SGOT) 26 U/L (<=31); Alanine Aminotransfer ALT/SGPT 24 U/L (<=34); Albumin, Serum 4.8 g/dL (3.5-5.0); Alkaline Phosphatase 107 U/L (35-104); Anion Gap 13 (5-15); BUN 17 mg/dL (4-19); BUN/Creat Ratio 22.8 RATIO (10-20); Calcium,Total 10.2 mg/dL (7.6-11.0); Carbon Dioxide 23.1 mmol/L (21.0-32.0); Chloride 104 mmol/L (98-108); Cholesterol 167 mg/dL (<=200); Globulin 2.8 g/dL (2.2-4.2); Glucose 82 mg/dL (70-99); Low Density Lipoprotein Calc. 87 mg/dL; Potassium 4.4 mmol/L (3.3-5.1); Triglycerides 68 mg/dL; Very Low Density Lipoprotein 14 mg/dL (5-40); cholesterol:hdl ratio screen 2.50
--- OUTSIDE RECORDS SUMMARY | 2024-10-25 19:20 | XMS RPT_ITS | CCD ---
Author Organization [facility] Care Team Providers Care Donation Worker Name Role Phone Cogar OPERATIONS MANAGER STATION, Florina N Unavailable Twan OPERATIONS MANAGER STATION, Patricia N Unavailable Unavailab le Twan OPERATIONS MANAGER STATION, Patricia N Unavailable Unavailab le Cogar OPERATIONS MANAGER STATION, Florina N Unavailable Donnie Vivas Unavailable Cher Sampson E Unavailable Juan José Olson Unavailable Lamonte Kamara Unavailable Jany Sood Unavailable Yvette Benavidez Unavailable Unavailable Florence Farias Unavailable Unavailable Eric Soriano Unavailable Unavailable Unavailable Unavailable Ciesa, Cher Unavailable Unavailable Ciesa, Cher Unavailable Unavailable Ciesa, Cehr Unavailable Unavailable Dr. Santhosh Abbott Primary Care Provider [phone] Dr. Tacho Horn Attending Provider Dr. Santhosh Abbott Referring Provider [phone] Jacqui SENIOR SOFTWARE MANAGER, SENIOR SOFTWARE MANAGER-C Dae Attending Provider [phone] Dr. Santhosh Abbott Primary Care Provider [phone] Dr. Santhosh Abbott Referring Provider [phone] Jacqui SENIOR SOFTWARE MANAGER, SENIOR SOFTWARE MANAGER-C Dae Attending Provider [phone] Dr. Santhosh Abbott Primary Care Provider [phone] Dr. Santhosh Abbott Referring Provider [phone] Jacqui SENIOR SOFTWARE MANAGER, SENIOR SOFTWARE MANAGER-C Dae Attending Provider [phone] Dr. Samir Mathews Emergency Provider Dr. Jayy Beatty Attending Provider Dr. Jayy Beatty Admit Provider Dr. Jayy Beatty Other Provider Dr. Lisa Cole Attending Provider Dr. Lisa Cole Other Provider Dr. Cathy Siddiqui Other Provider Dr. Santhosh Abbott Primary Care Provider Dr. Santhosh Abbott Referring Provider Osman SENIOR SOFTWARE MANAGER, SENIOR SOFTWARE MANAGER-C Dae Attending Provider Dr. Santhosh Abbott Primary Care Provider Dr. Santhosh Abbott Referring Provider Osman SENIOR SOFTWARE MANAGER, SENIOR SOFTWARE MANAGER-C Dae Attending Provider Osman SENIOR SOFTWARE MANAGER-C, Dae Primary Care Provider Dr. Butch Christina DO Attending Provider Dr. Butch Christina DO Emergency Provider Osman SENIOR SOFTWARE MANAGER-C, Dae Attending Provider Osman SENIOR SOFTWARE MANAGER-C, Dae Referring Provider Osman SENIOR SOFTWARE MANAGER-C, Dae Primary Care Provider Tannhof SENIOR SOFTWARE MANAGER-C, Laury Attending Provider Tannhof SENIOR SOFTWARE MANAGER-C, Laury Referring Provider Tannhof SENIOR SOFTWARE MANAGER-C, Laury Other Provider Marques JOYA, Dr. Couch Attending Provider Busterhokory, Laury Consulting Unavailable Tannhof, Laury Referring Unavailable Khoa Mohan Attending Unavailable Osman VSC, Dae Primary Care Unavailable Osman VSC, Dae Primary Care Unavailable Osman VSC, Dae Attending Unavailable Osman VSC, Dae Referring Unavailable Osman VSC, Dae Primary Care Unavailable Osman VSC, Dae Attending Unavailable Osman VSC, Dae Referring Unavailable Osman VSC, Dae Attending Unavailable Osman VSC, Dae Referring Unavailable Osman VSC, Dae Primary Care Unavailable Laury Lee Attending Unavailable Laury Lee Referring Unavailable Osman VSC, Dae Primary Care Unavailable Butch Christina Attending Unavailable Osman VSC, Dae Primary Care Unavailable Medications Current Medications Medication Drug Class(es) Dates Sig (Normalized) Sig (Original) calcium carbonate 1500 mg oral tablet (20 sources) Start: 04-04-2020 take 1 tablet by mouth once daily Calcium Carbonate (Calcium 600) 600 mg calcium (1,500 mg) tablet Active 600 mg PO DAILY April 04, 2020 1:00am supplement cholecalciferol 0.25 mg oral capsule (20 sources) Vitamin D Start: 04-04-2020 take 1 capsule by mouth once daily Cholecalciferol (Vitamin D3) 250 mcg (10,000 unit) capsule Active 400 ug PO DAILY April 04, 2020 1:00am vit d dicyclomine hydrochloride 20 mg oral tablet (4 sources) Anticholinergic Start: 03-09-2024 take 1 tablet by mouth three times daily Dicyclomine 20 mg tablet Active 20 mg PO THREE TIMES A DAY 30 0 March 09, 2024 1:00am Mv-Mn-Fa-Bl Eyj-Nnhyirz-Mlldwq (Estroven Menopause) 400 mcg-40 mg- 40 mg-100 mg Tablet (4 sources) Start: 09-13-2020 Mv-Mn-Fa-Bl Eqh-Twajtwb-Gntbxk (Estroven Menopause) 400 mcg-40 mg- 40 mg-100 mg Tablet Active 1 TABLET PO AT BEDTIME September 13, 2020 2:32pm Start: 09-13-2020 Mv-Mn-Fa-Bl Co z-Glyhfqd-Bnfult (Estroven Menopause) 400 mcg- 40 mg- 40 mg-100 mg Tablet Active 1 TABLET PO AT BEDTIME September 12, 2020 11:00pm Start: 09-13-2020 Mv-Mn-Fa-Bl Co c-Zophqng-Ensjsk (Estroven Menopause) 400 mcg- 40 mg- 40 mg-100 mg Tablet Active 1 TABLET PO AT BEDTIME September 13, 2020 12:00am olmesartan medoxomil 5 mg oral tablet (20 sources) Angiotensin 2 Receptor Fela Start: 08-21-2022 take 1 tablet by mouth twice daily Olmesartan 5 mg tablet Active 5 mg PO TWICE A DAY 180 August 21, 2022 1:43pm BP Start: 06-11-2022 End: 08-21-2022 take 1 tablet by mouth once daily Olmesartan 20 mg tablet Discontinued 20 mg PO DAILY June 11, 2022 11:13am August 21, 2022 1:44pm BP Start: 03-12-2022 End: 06-11-2022 Olmesartan 20 mg tablet Disc ontinued 30 mg PO DAILY 135 1 March 12, 2022 3:11pm June 11, 2022 11:14am BP Start: 03-12-2022 End: 06-11-2022 take 30 mg by mouth once daily Olmesartan Discontinued 30 MG PO DAILY 135 March 12, 2022 2:11pm June 11, 2022 10:14am Start: 04-10-2021 End: 03-12-2022 take 1 tablet by mouth once daily Olmesartan 40 mg tablet Discontinued 40 mg PO DAILY January 19, 2022 8:53am March 12, 2022 3:14pm BP Start: 08-29-2020 End: 04-10-2021 take 1 tablet by mouth once daily Olmesartan 20 mg tablet Discontinued 20 mg PO DAILY 90 August 29, 2020 11:50am April 10, 2021 11:24am Start: 03-27-2020 End: 08-29-2020 take 10 mg by mouth once daily Olmesartan 20 mg tablet Discontinued 10 mg PO DAILY 90 March 27, 2020 12:37pm August 29, 2020 11:51am Start: 03-27-2020 End: 08-29-2020 take 10 mg by mouth once daily Olmesartan Discontinued 10 MG PO DAILY 90 March 27, 2020 11:37am August 29, 2020 10:51am Start: 04-06-2018 End: 03-27-2020 take 1 tablet by mouth once daily Olmesartan 5 mg tablet Discontinued 5 mg PO DAILY 90 3 June 07, 2019 9:47am March 27, 2020 12:38pm ondansetron 4 mg disintegrating oral tablet (20 sources) Serotonin-3 Receptor Antagonist Start: 03-09-2024 take 1 tablet by mouth every six hours as needed for nausea and vomiting Ondansetron 4 mg tablet,disintegrating Active 4 mg PO EVERY 6 HOURS as needed for nausea and vomiting 30 March 09, 2024 1:00am Start: 12-27-2019 End: 05-30-2020 take 1 tablet by mouth every eight hours as needed for nausea and vomiting Ondansetron 4 mg tablet,disintegrating Discontinued 4 mg PO Q8H as needed for nausea and vomiting 20 December 27, 2019 12:00am May 30, 2020 10:55am 72 hr scopolamine 0.0139 mg/hr transdermal system (20 sources) Anticholinergic Start: 03-04-2022 End: 03-12-2022 Scopolamine Base 1 mg over 3 days patch 3 day Active 1 NMA TD Every 3 Days as needed for motion sickness 24 March 12, 2022 2:52pm Start: 03-04-2022 End: 03-12-2022 Scopolamine Base Active 1 PA TCH TD Q3D March 12, 2022 1:52pm Start: 12-04-2020 End: 06-04-2021 Scopolamine Base 1 mg over 3 days patch 3 day Discontinued 1 NMA TD Q72H as needed for motion sickness 24 December 04, 2020 12:00am June 04, 2021 11:14am Start: 12-04-2020 End: 06-04-2021 Scopolamine Base Discontinue d 1 PATCH TD Q72H December 03, 2020 11:00pm June 04, 2021 10:14am Start: 10-09-2014 End: 11-29-2014 TRANSDERM-SCOP, 1MG/3DAYS (T ransdermal Patch 72 Hour) 1 (one) Patch 72HR q 72 h prn for 0 days Quantity: 5 {Package} Refills: 1 Ordered: 29-Nov-2014 Florence Farias LPN Start : 09-Oct-2014 End : 29-Nov-2014 Discontinued Tirzepatide (6 sources) Start: 08-20-2022 Tirzepatide Ac tive 7.5 MG SC EVERY WEEK August 20, 2022 10:17am Start: 08-20-2022 Tirzepatide Ac tive 7.5 MG SC EVERY WEEK 2 August 20, 2022 11:17am Start: 08-11-2022 End: 08-20-2022 Tirzepatide Discontinued 7.5 MG SC EVERY WEEK 2 August 11, 2022 11:46am August 20, 2022 10:17am Start: 08-11-2022 End: 08-20-2022 Tirzepatide Discontinued 7.5 MG SC EVERY WEEK 2 August 11, 2022 12:46pm August 20, 2022 11:17am Completed/Discontinued Medications Medication Drug Class(es) Dates Sig (Normalized) Sig (Original) acetaminophen 325 mg / oxyCODONE hydrochloride 5 mg oral tablet (20 sources) Opioid Agonist Start: 09-20-2020 End: 10-04-2020 Oxycodone-Acetaminop hen (Percocet) 5-325 mg tablet Discontinued 1 {tbl} PO EVERY 6 HOURS as needed for pain (scale score 7-10) 20 5 0 September 20, 2020 October 04, 2020 10:58am Acute postoperative pain Other acute postprocedural pain 20 tabs (twenty) 200 actuat albuterol 0.09 mg/actuat metered dose inhaler (20 sources) beta2-Adrenergic Agonist Start: 08-19-2017 take 2 puff(s) by inhalation three times daily as needed ProAir HFA 108 (90 Base) MCG/ACT Inhalation Aerosol Solution 2 (two) Puff(s) tid prn for 0 days Quantity: 1 {Inhaler} Refills: 0 Ordered: 19-Aug-2017 Cher Sampson CNP, CNP, Mary E Start : 19-Aug-2017 Active Start: 05-11-2013 End: 03-16-2017 take 1 puff(s) by inhalation every four hours as needed Albuterol Sulfate Discontinued 1 - 2 PUFF INHALATION EVERY 4 HOURS NEEDED May 11, 2013 10:15am March 16, 2017 12:42pm Start: 05-11-2013 End: 03-16-2017 Albuterol Sulfate 1 PUFF inh aler Discontinued 1 - 2 NMA INHALATION EVERY 4 HOURS NEEDED as needed for Wheezing May 11, 2013 12:00am March 16, 2017 12:42pm Start: 05-11-2013 End: 03-16-2017 take 1 puff(s) by inhalation every four hours as needed Albuterol Sulfate Discontinued 1 - 2 PUFF INHALATION EVERY 4 HOURS NEEDED May 10, 2013 11:00pm March 16, 2017 11:42am amLODIPine 5 mg oral tablet (4 sources) Dihydropyridine Calcium Channel Fela Start: 09-16-2011 End: 12-22-2011 take 1 tablet by mouth once daily NORVASC, 5MG (Oral Tablet) 1 (one) Tablet daily for 0 days Quantity: 90 {Tablet} Refills: 3 Ordered: 22-Dec-2011 Fiorella Rae LPN Start : 16-Sep-2011 End : 22-Dec-2011 Inactive Start: 09-16-2011 End: 03-30-2012 take 1 tablet by mouth once daily NORVASC, 10MG (Oral Tablet) 1 Tablet daily for 0 days Quantity: 90 {Tablet} Refills: 3 Ordered: 30-Mar-2012 Fiorella Rae LPN Start : 16-Sep-2011 End : 30-Mar-2012 Inactive amoxicillin 875 mg / clavulanate 125 mg oral tablet (11 sources) Penicillin-class Antibacterial Start: 03-26-2022 End: 06-11-2022 Amoxicillin-Pot Clavulanate 875-125 mg tablet Discontinued 1 {tbl} PO TWICE A DAY 14 March 26, 2022 1:00am June 11, 2022 11:07am Start: 03-26-2022 End: 06-11-2022 take 1 tablet by mouth twice daily Amoxicillin-Pot Clavulanate Discontinued 1 TABLET PO TWICE A DAY March 26, 2022 12:00am June 11, 2022 10:07am atorvastatin 40 mg oral tablet (20 sources) HMG-CoA Reductase Inhibitor Start: 05-10-2019 End: 06-04-2021 take 1 tablet by mouth once daily Atorvastatin 40 mg tablet Discontinued 40 mg PO DAILY 90 3 June 12, 2020 11:07am June 04, 2021 11:33am Start: 05-11-2013 End: 05-10-2019 take 1 tablet by mouth once daily Atorvastatin 20 mg tablet Discontinued 20 mg PO DAILY 90 3 March 03, 2019 3:18pm May 10, 2019 11:18am azithromycin 250 mg oral tablet (2 sources) Macrolide Antimicrobial Start: 07-09-2016 End: 06-16-2017 Zithromax Z-Speedy 250 MG Oral Tablet 1 Tablet TAD for 0 days Quantity: 1 {Package} Refills: 0 Ordered: 16-Jun-2017 Eric Soriano Start : 09-Jul-2016 End : 16-Jun-2017 Inactive benzonatate 100 mg oral capsule (2 sources) Non-narcotic Antitussive Start: 06-16-2017 End: 10-21-2017 take 1 capsule by mouth three times daily as needed for cough Tessalon Perles 100 MG Oral Capsule 1 Capsule tid prn cough for 0 days Quantity: 30 {Capsule} Refills: 1 Ordered: 21-Oct-2017 Yvette Benavidez Start : 16-Jun-2017 End : 21-Oct-2017 Discontinued carvedilol 6.25 mg oral tablet (2 sources) alpha-Adrenergic Fela, beta-Adrenergic Fela Start: 04-24-2015 End: 10-19-2015 take 1 tablet by mouth twice daily Carvedilol 6.25 MG Oral Tablet 1 (one) Tablet Tablet two times daily for 0 days Quantity: 180 {Tablet} Refills: 3 Ordered: 19-Oct-2015 Florence Farias LPN Start : 24-Apr-2015 End : 19-Oct-2015 Discontinued cephalexin 500 mg oral capsule (2 sources) Cephalosporin Antibacterial Start: 06-30-2012 End: 07-07-2012 take 1 capsule by mouth twice daily KEFLEX, 500MG (Oral Capsule) 1 Capsule bid for 7 days Quantity: 14 {Capsule} Refills: 0 Ordered: 30-Jun-2012 Cher Sampson CNP, CNP, Mary E Start : 30-Jun-2012 End : 07-Jul-2012 Inactive cetirizine hydrochloride 10 mg oral tablet (2 sources) Histamine-1 Receptor Antagonist Start: 10-21-2017 take 2 tablets by mouth once daily Cetirizine HCl 10 MG Oral Tablet 2 (two) Tablet daily for 30 days Quantity: 30 {Tablet} Refills: 2 Ordered: 21-Oct-2017 Cher Sampson CNP, CNP, Mary E Start : 21-Oct-2017 Active ciclopirox 80 mg/ml topical solution (20 sources) Start: 06-03-2018 End: 11-12-2018 Ciclopirox 8 % solution Discontinued 1 NMA TOPICAL AT BEDTIME 6.6 336 11 June 03, 2018 12:00am June 16, 2029 12:00am November 12, 2018 11:08am apply over previous coat; remove with alcohol every 7 days ciprofloxacin 500 mg oral tablet (2 sources) Quinolone Antimicrobial Start: 12-28-2006 End: 02-09-2008 take 1 tablet by mouth twice daily CIPRO, 500MG (Oral Tablet) 1 (one) Tablet Twice daily for 0 days Quantity: 20 {Tablet} Refills: 0 Ordered: 28-Dec-2006 Kimberly Hernandez Start : 28-Dec-2006 End : 09-Feb-2008 Discontinued clindamycin 300 mg oral capsule (20 sources) Lincosamide Antibacterial Start: 09-20-2020 End: 10-04-2020 take 1 capsule by mouth three times daily Clindamycin Hcl (Cleocin Hcl) 300 mg capsule Discontinued 300 mg PO THREE TIMES A DAY 12 0 September 20, 2020 12:00am October 04, 2020 10:57am clotrimazole 10 mg oral lozenge (2 sources) Azole Antifungal Start: 08-13-2009 End: 08-23-2009 MYCELEX, 10MG (Mouth/Throat Mikey) 1 (one) Mikey 5 times daily for 10 days Quantity: 50 {Mikey} Refills: 0 Ordered: 28-Aug-2009 Ciesa LATIN TEACHER, Cynthia Baljindera LATIN TEACHER, Cher Henson Start : 13-Aug-2009 End : 23-Aug-2009 Inactive codeine phosphate 2 mg/ml / guaiFENesin 20 mg/ml oral solution (2 sources) Opioid Agonist Start: 07-09-2016 End: 06-16-2017 Cheratussin AC 100-10 MG/5ML Oral Syrup 1-2 Teaspoon(s) qhs prn cough for 0 days Quantity: 6 {Ounce} Refills: 0 Ordered: 16-Jun-2017 Eric Soriano Start : 09-Jul-2016 End : 16-Jun-2017 Inactive cyclobenzaprine hydrochloride 5 mg oral tablet (4 sources) Muscle Relaxant Start: 11-30-2015 End: 06-16-2017 take 1 tablet by mouth every eight hours as needed Cyclobenzaprine HCl 5 MG Oral Tablet 1 (one) Tablet Tablet q8hrs prn for 0 days Quantity: 30 {QS} Refills: 0 Ordered: 16-Jun-2017 Eric Soriano Start : 30-Nov-2015 End : 16-Jun-2017 Inactive Start: 10-12-2009 take 1 tablet by shoaib th three times daily as needed for muscle spasms FLEXERIL, 10MG (Oral Tablet) 1 (one) Tablet tid prn for muscle spasm for 0 days Quantity: 30 {Tablet} Refills: 0 Ordered: 06-Nov-2009 Fiorella Rae LPN Start : 12-Oct-2009 Inactive diclofenac epolamine 0.013 mg/mg medicated patch (2 sources) Nonsteroidal Anti-inflammatory Drug Start: 10-22-2009 FLECTOR, 1.3% (Transdermal Patch) 1 (one) Patch bid for 0 days Quantity: 7 {Patch} Refills: 0 Ordered: 06-Nov-2009 Fiorella Rae LPN Start : 22-Oct-2009 Inactive estradiol 1 mg oral tablet (20 sources) Estrogen Start: 11-15-2019 End: 03-27-2020 take 1 tablet by mouth once daily Estradiol 1 mg tablet Discontinued 1 mg PO DAILY 90 November 15, 2019 2:47pm March 27, 2020 12:11pm Start: 10-04-2016 End: 11-15-2019 take 1 tablet by mouth once daily Estradiol 2 mg tablet Discontinued 2 mg PO DAILY 90 March 31, 2019 4:04pm November 15, 2019 2:48pm 24 hr etodolac 400 mg extended release oral tablet (2 sources) Nonsteroidal Anti-inflammatory Drug Start: 10-22-2006 End: 02-09-2008 take 2 tablets by mouth once daily LODINE XL, 400MG (Oral Tablet Extended Release 24 Hour) 2 (two) Tablet ER 24HR Daily for 0 days Quantity: 60 {Tablet_ER_24HR} Refills: 0 Ordered: 22-Oct-2006 Kimberly Hernandez Start : 22-Oct-2006 End : 09-Feb-2008 Discontinued famotidine 20 mg oral tablet (2 sources) Histamine-2 Receptor Antagonist Start: 10-12-2009 End: 01-15-2011 take 1 tablet by mouth twice daily as needed PEPCID, 20MG (Oral Tablet) 1 (one) Tablet bid prn for 0 days Quantity: 10 {Tablet} Refills: 0 Ordered: 15-Jan-2011 Fiorella Rae LPN Start : 12-Oct-2009 End : 15-Jan-2011 Inactive fenofibrate 120 mg oral tablet (20 sources) Peroxisome Proliferator Receptor alpha Agonist Start: 05-02-2021 End: 03-08-2024 take 1 capsule by mouth once daily Fenofibrate Micronized 134 mg capsule Discontinued 134 mg PO DAILY January 19, 2022 8:53am March 08, 2024 11:39pm cholesterol Start: 03-28-2020 End: 05-02-2021 take 1 tablet by mouth once daily Fenofibrate 120 mg tablet Discontinued 120 mg PO DAILY 90 May 02, 2021 10:39am May 02, 2021 12:52pm Start: 11-15-2019 End: 03-28-2020 take 1 tablet by mouth once daily Fenofibrate 54 mg tablet Discontinued 54 mg PO DAILY 90 November 15, 2019 12:00am March 28, 2020 2:38pm Flucelvax Quad (flu vac qs (6 ms up) CD) 60 mcg (15 mcg x (1 source) Start: 12-04-2020 End: 12-04-2020 inject 15 ug by intramuscular injection once Flucelvax Quad (flu vac qs (6 ms up) CD) 60 mcg (15 mcg x Discontinued 0.5 ML IM ONCE 0.December 04, 2020 11:02am December 04, 2020 11:59am Flucelvax Quad (flu vac qs 22(6 ms up) CD) 60 mcg (15 mcg x (1 source) Start: 12-04-2020 End: 12-04-2020 inject 15 ug by intramuscular injection once Flucelvax Quad (flu vac qs 22(6 ms up) CD) 60 mcg (15 mcg x Discontinued 60 MCG IM ONCE 0.5 December 04, 2020 11:02am December 04, 2020 12:01pm fluconazole 150 mg oral tablet (2 sources) Azole Antifungal Start: 09-15-2007 End: 02-09-2008 take 1 tablet by mouth once DIFLUCAN, 150MG (Oral Tablet) 1 (one) Tablet once for 0 days Quantity: 1 {Tablet} Refills: 1 Ordered: 15-Sep-2007 Kimberly Hernandez Start : 15-Sep-2007 End : 09-Feb-2008 Discontinued fluticasone propionate 0.05 mg/actuat metered dose nasal spray (11 sources) Corticosteroid Start: 03-26-2022 End: 06-11-2022 take 50 ug nasal route once daily Fluticasone Propionate (Flonase Allergy Relief) 50 mcg/actuation spray,suspension Discontinued 2 NMA INTRANASAL DAILY 15.8 March 26, 2022 1:00am June 11, 2022 11:07am administer into each nostril Start: 03-26-2022 End: 06-11-2022 take 1 spray(s) nasal route once daily Fluticasone Propionate (Flonase Allergy Relief) 50 mcg/actuation spray,suspension Discontinued 2 SPRAY INTRANASAL DAILY 15.8 March 26, 2022 12:00am June 11, 2022 10:07am administer into each nostril gabapentin 300 mg oral capsule (2 sources) Anti-epileptic Agent Start: 11-30-2015 End: 10-21-2017 Gabapentin 300 MG Oral Capsule 1 (one) Capsule bid to tid for 0 days Quantity: 90 {Capsule} Refills: 0 Ordered: 21-Oct-2017 Yvette Benavidez Start : 30-Nov-2015 End : 21-Oct-2017 Discontinued hydroCHLOROthiazide 12.5 mg oral tablet (2 sources) Thiazide Diuretic Start: 06-28-2012 End: 08-16-2013 take 1 tablet by mouth once daily HYDROCHLOROTHIAZ ELADIO, 12.5MG (Oral Tablet) 1 Tablet daily for 0 days Quantity: 90 {Tablet} Refills: 3 Ordered: 16-Aug-2013 Tisha Salcedo Start : 28-Jun-2012 End : 16-Aug-2013 Inactive hydroCHLOROthiazide 12.5 mg / olmesartan medoxomil 40 mg oral tablet (2 sources) Thiazide Diuretic, Angiotensin 2 Receptor Fela Start: 01-29-2011 End: 05-28-2011 take 1 tablet by mouth once daily BENICAR HCT, 40-12.5MG (Oral Tablet) 1 Tablet daily for 0 days Quantity: 30 {Tablet} Refills: 3 Ordered: 28-May-2011 Fiorella Rae LPN Start : 29-Jan-2011 End : 28-May-2011 Inactive ibuprofen 400 mg oral tablet (2 sources) Nonsteroidal Anti-inflammatory Drug Start: 02-09-2008 End: 03-10-2008 take 1 tablet by mouth twice daily MOTRIN, 400MG (Oral Tablet) Tablet bid for 7 days Quantity: 30 {Tablet} Refills: 0 Ordered: 09-Feb-2008 Cher Sampson CNP, CNP, Mary E Start : 09-Feb-2008 End : 10-Mar-2008 Inactive icosapent ethyl 1000 mg oral capsule (20 sources) Start: 03-24-2018 End: 11-15-2019 Icosapent Ethyl (Vascepa) 1 gram capsule Discontinued 2 g PO TWICE A DAY 360 90 3 April 04, 2019 5:54pm November 15, 2019 11:02am lansoprazole 30 mg delayed release oral capsule (2 sources) Proton Pump Inhibitor Start: 10-12-2009 End: 10-12-2009 take 1 capsule by mouth once daily PREVACID, 30MG (Oral Capsule Delayed Release) 1 (one) Capsule DR daily for 0 days Quantity: 30 {Capsule_DR} Refills: 0 Ordered: 12-Oct-2009 Stacey Bui RN Start : 12-Oct-2009 End : 12-Oct-2009 Discontinued levoFLOXacin 500 mg oral tablet (2 sources) Quinolone Antimicrobial Start: 05-15-2014 End: 05-22-2014 take 1 tablet by mouth once daily LEVAQUIN, 500MG (Oral Tablet) 1 (one) Tablet daily for 7 days Quantity: 7 {Tablet} Refills: 0 Ordered: 15-May-2014 Cher Sampson CNP, CNP, Mary E Start : 15-May-2014 End : 22-May-2014 Inactive lisinopril 10 mg oral tablet (20 sources) Angiotensin Converting Enzyme Inhibitor Start: 03-24-2018 End: 04-06-2018 take 5 mg by mouth once daily Lisinopril 10 mg tablet Discontinued 5 mg PO DAILY 30 March 24, 2018 1:00am April 06, 2018 6:37pm Start: 03-24-2018 End: 04-06-2018 take 5 mg by mouth once daily Lisinopril Discontinued 5 MG PO DAILY March 24, 2018 12:00am April 06, 2018 5:37pm Start: 01-15-2011 End: 02-11-2011 take 1 tablet by mouth once daily LISINOPRIL, 5MG (Oral Tablet) 1 Tablet daily for 0 days Quantity: 30 {Tablet} Refills: 3 Ordered: 11-Feb-2011 Fiorella Rae LPN Start : 15-Jan-2011 End : 11-Feb-2011 Inactive loratadine 10 mg oral capsule (2 sources) Start: 06-16-2017 End: 10-21-2017 take 1 capsule by mouth once daily Claritin 10 MG Oral Capsule 1 (one) Capsule daily for 0 days Quantity: 30 {Capsule} Refills: 0 Ordered: 21-Oct-2017 Yvette Benavidez Start : 16-Jun-2017 End : 21-Oct-2017 Discontinued meloxicam 15 mg oral tablet (20 sources) Nonsteroidal Anti-inflammatory Drug Start: 01-09-2021 End: 01-21-2022 take 7.5-15 mg by mouth once daily Meloxicam 15 mg tablet Discontinued 7.5 - 15 mg PO DAILY 90 July 24, 2021 1:57pm January 19, 2022 8:53am Start: 10-04-2016 End: 03-05-2018 take 1 tablet by mouth once daily Meloxicam 7.5 MG tablet Discontinued 7.5 mg PO DAILY October 04, 2016 12:00am March 05, 2018 11:53am 24 hr metoprolol succinate 50 mg extended release oral tablet (2 sources) beta-Adrenergic Fela Start: 02-17-2006 End: 02-17-2006 take 1 tablet by mouth once daily TOPROL XL, 50MG (Oral Tablet Extended Release 24 Hour) 1 Tablet ER 24HR QD for 0 days Refills: 0 Ordered: 17-Feb-2006 Denisse Tirado Start : 17-Feb-2006 End : 17-Feb-2006 Discontinued Comments: Pt stopped and BP controlled. Comment on above: Pt stopped and BP co ntrolled. mupirocin 0.02 mg/mg topical ointment (2 sources) RNA Synthetase Inhibitor Antibacterial Start: 10-12-2009 End: 10-12-2009 MUPIROCIN, 2% (External Ointment) 1 (one) Ointment apply as directed for 0 days Quantity: 1 {Tube(s)} Refills: 0 Ordered: 12-Oct-2009 Mast Stacey RICHARDSON Start : 12-Oct-2009 End : 12-Oct-2009 Discontinued Comments: Use different swabs and apply smal amt to end of q tip to nasal, using different swab to umbilicus and rectum daily x 5 days Comment on above: Use different swabs and apply smal amt to end of q tip to nasal, using different swab to umbilicus and rectum daily x 5 days naproxen sodium 220 mg oral tablet (2 sources) Nonsteroidal Anti-inflammatory Drug Start: 11-16-2015 End: 10-21-2017 take 1 tablet by mouth twice daily as needed Aleve 220 MG Oral Tablet 1 (one) Tablet Tablet bid prn for 0 days Quantity: 60 {Tablet} Refills: 0 Ordered: 21-Oct-2017 Yvette Benavidez Start : 16-Nov-2015 End : 21-Oct-2017 Discontinued nebivolol 20 mg oral tablet (20 sources) Start: 03-05-2018 End: 04-10-2021 take 1 tablet by mouth once daily Nebivolol (Bystolic) 20 mg tablet Discontinued 20 mg PO DAILY 30 0 November 13, 2020 3:23pm December 04, 2020 11:22am Start: 01-25-2018 take 1 tablet by shoaib th once daily Bystolic 10 MG Oral Tablet 1 (one) Tablet daily for 30 days Quantity: 90 {Tablet} Refills: 3 Ordered: 25-Jan-2018 Camilla ANNE, Chre Sampson CNP, Cynthia Start : 25-Jan-2018 Active Start: 10-03-2014 End: 01-04-2015 take 1 tablet by mouth once daily BYSTOLIC, 5MG (Oral Tablet) 1 Tablet daily for 0 days Quantity: 90 {Tablet} Refills: 0 Ordered: 04-Jan-2015 Fiorella Rae LPN Start : 03-Oct-2014 End : 04-Jan-2015 Discontinued Start: 05-11-2013 End: 03-05-2018 take 2 tablets by mouth once daily Nebivolol 5 MG tablet Discontinued 10 mg PO DAILY May 11, 2013 12:00am March 05, 2018 12:20pm Start: 05-11-2013 End: 03-05-2018 take 10 mg by mouth once daily Nebivolol Discontinued 10 MG PO DAILY May 10, 2013 11:00pm March 05, 2018 11:20am ofloxacin 3 mg/ml ophthalmic solution (2 sources) Quinolone Antimicrobial Start: 03-30-2012 End: 08-16-2013 OCUFLOX, 0.3% (Ophthalmic Solution) 2 (two) Drop(s) q4hrs x 2days, then 1-2 drops qid x 5 days for 0 days Quantity: 1 {Solution} Refills: 0 Ordered: 16-Aug-2013 Tisha Salcedo Start : 30-Mar-2012 End : 16-Aug-2013 Inactive Dundas-3 Fatty Acids-Fish Oil (16 sources) Start: 03-08-2018 End: 06-03-2018 Dundas-3 Fatty Acids-Fish Oil Discontinued 1 EACH PO DAILY March 08, 2018 10:10am June 03, 2018 9:31am Start: 03-08-2018 End: 06-03-2018 Dundas-3 Fatty Acids-Fish Oil Discontinued 1 EACH PO DAILY March 08, 2018 12:00am June 03, 2018 8:31am Start: 03-08-2018 End: 06-03-2018 Dundas-3 Fatty Acids-Fish Oil Discontinued 1 EACH PO DAILY March 08, 2018 1:00am June 03, 2018 9:31am Dundas-3 Fatty Acids-Fish Oil 1 EACH capsule (4 sources) Start: 03-08-2018 End: 06-03-2018 Dundas-3 Fatty Acids-Fish Oil 1 EACH capsule Discontinued 1 NMA PO DAILY March 08, 2018 1:00am June 03, 2018 9:31am pitavastatin calcium 2 mg oral tablet (2 sources) HMG-CoA Reductase Inhibitor Start: 01-29-2011 End: 05-28-2011 take 1 tablet by mouth once daily LIVALO, 2MG (Oral Tablet) 1 Tablet daily for 0 days Quantity: 30 {Tablet} Refills: 3 Ordered: 28-May-2011 Fiorella Rae LPN Start : 29-Jan-2011 End : 28-May-2011 Inactive predniSONE 10 mg oral tablet (4 sources) Start: 07-09-2016 End: 06-16-2017 PredniSONE 10 MG Oral Tablet 1 (one) Tablet bid x 3 days, then daily x3 days then 1/2 x3 days for 0 days Quantity: 11 {Tablet} Refills: 0 Ordered: 16-Jun-2017 Eric Soriano Start : 09-Jul-2016 End : 16-Jun-2017 Inactive Comments: with food Start: 02-04-2013 End: 02-07-2013 PREDNISONE, 20MG (Oral Table t) 1 (one) Tablet bid x 3 days, then daily x 3 days then 1/2 x3 days for 3 days Quantity: 3 {Tablet} Refills: 0 Ordered: 04-Feb-2013 Cher Sampson CNP, CNP, Mary E Start : 04-Feb-2013 End : 07-Feb-2013 Inactive Comments: with food Comment on above: with food promethazine hydrochloride 25 mg oral tablet (2 sources) Phenothiazine Start: 01-17-20 09 End: 11-07-19 10 take 1 tablet by mouth every six hours as needed PHENERGAN, 25MG (Oral Tablet) 1 (one) Tablet q6hrs prn for 0 days Quantity: 15 {Tablet} Refills: 0 Ordered: 16-Jan-2009 Fiorella Rae LPN Start : 16-Jan-2009 End : 06-Nov-2009 Discontinued Comments: This order discontinued per [facility]. Comment on above: This order discontin ued per [facility]. rosuvastatin calcium 5 mg oral tablet (20 sources) HMG-CoA Reductase Inhibitor Start: 06-05-19 End: 02-19-20 22 take 1 tablet by mouth once daily Rosuvastatin 5 mg tablet Discontinued 5 mg PO DAILY January 19, 2022 8:53am February 18, 2022 10:59am cholesterol solifenacin succinate 5 mg oral tablet (2 sources) Cholinergic Muscarinic Antagonist Start: 10-23-19 07 End: 02-09-20 08 take 1 tablet by mouth once daily VESICARE, 5MG (Oral Tablet) 1 (one) Tablet Daily for 0 days Quantity: 30 {Tablet} Refills: 3 Ordered: 22-Oct-2006 Kimberly Hernandez Start : 22-Oct-2006 End : 09-Feb-2008 Discontinued sulfamethoxazole 800 mg / trimethoprim 160 mg oral tablet (2 sources) Dihydrofolate Reductase Inhibitor Antibacterial, Sulfonamide Antimicrobial Start: 08-21-19 10 End: 08-28-19 10 take 1 tablet by mouth twice daily BACTRIM DS, 800-160MG (Oral Tablet) 1 (one) Tablet bid for 7 days Quantity: 14 {Tablet} Refills: 0 Ordered: 20-Aug-2009 Cher Sampson CNP, CNP, Mary E Start : 20-Aug-2009 End : 27-Aug-2009 Inactive Tirzepatide (Mounjaro) 5 mg/0.5 mL pen injector (20 sources) Start: 04-29-19 End: 04-29-19 Tirzepatide (Mounjaro) 5 mg/0.5 mL pen injector Discontinued 5 mg SC EVERY WEEK 2 3 April 29, 2022 2:18pm April 29, 2022 2:19pm weight loss Start: 04-29-2022 End: 04-29-2022 Tirzepatide (Mounjaro) 5 mg/ 0.5 mL pen injector Discontinued 5 mg SC EVERY WEEK 2 April 29, 2022 2:18pm April 29, 2022 2:19pm Start: 04-29-2022 End: 04-29-2022 Tirzepatide (Mounjaro) 5 mg/ 0.5 mL pen injector Discontinued 5 MG SC EVERY WEEK 2 April 29, 2022 2:18pm April 29, 2022 2:19pm Start: 04-29-2022 End: 04-29-2022 Tirzepatide (Mounjaro) 5 mg/ 0.5 mL pen injector Discontinued 5 MG SC EVERY WEEK 2 April 29, 2022 1:18pm April 29, 2022 1:19pm Start: 01-19-2022 End: 04-29-2022 Tirzepatide (Mounjaro) 5 mg/ 0.5 mL pen injector Discontinued 5 mg SC EVERY WEEK January 19, 2022 8:53am April 29, 2022 2:18pm weight loss Start: 01-19-2022 End: 04-29-2022 Tirzepatide (Mounjaro) 5 mg/ 0.5 mL pen injector Discontinued 5 mg SC EVERY WEEK January 19, 2022 8:53am April 29, 2022 2:18pm Start: 01-19-2022 End: 04-29-2022 Tirzepatide (Mounjaro) 5 mg/ 0.5 mL pen injector Discontinued 5 MG SC EVERY WEEK January 19, 2022 8:53am April 29, 2022 2:18pm Start: 01-19-2022 End: 04-29-2022 Tirzepatide (Mounjaro) 5 mg/ 0.5 mL pen injector Discontinued 5 MG SC EVERY WEEK January 19, 2022 7:53am April 29, 2022 1:18pm Start: 01-19-2022 Tirzepatide (M ounjaro) 5 mg/0.5 mL pen injector Active 5 MG SC EVERY WEEK January 19, 2022 7:53am Start: 12-17-2021 End: 01-19-2022 Tirzepatide (Mounjaro) 5 mg/ 0.5 mL pen injector Discontinued 5 mg SC EVERY WEEK 2 3 December 17, 2021 12:00am January 19, 2022 8:53am Metabolic syndrome Metabolic syndrome and other insulin resistance Start: 12-17-2021 End: 01-19-2022 Tirzepatide (Mounjaro) 5 mg/ 0.5 mL pen injector Discontinued 5 mg SC EVERY WEEK 2 December 17, 2021 12:00am January 19, 2022 8:53am Start: 12-17-2021 End: 01-19-2022 Tirzepatide (Mounjaro) 5 mg/ 0.5 mL pen injector Discontinued 5 MG SC EVERY WEEK 2 December 17, 2021 12:00am January 19, 2022 8:53am Start: 12-17-2021 End: 01-19-2022 Tirzepatide (Mounjaro) 5 mg/ 0.5 mL pen injector Discontinued 5 MG SC EVERY WEEK 2 December 16, 2021 11:00pm January 19, 2022 7:53am Start: 12-17-2021 Tirzepatide (M ounjaro) 5 mg/0.5 mL pen injector Active 5 MG SC EVERY WEEK 2 December 16, 2021 11:00pm Start: 12-17-2021 Tirzepatide (M ounjaro) 5 mg/0.5 mL pen injector Active 5 MG SC EVERY WEEK 2 December 17, 2021 12:00am Tirzepatide (Mounjaro) 7.5 mg/0.5 mL pen injector (10 sources) Start: 04-29-2022 End: 08-11-2022 Tirzepatide (Mounjaro) 7.5 mg/0.5 mL pen injector Discontinued 7.5 mg SC EVERY WEEK 2 3 April 29, 2022 2:18pm August 11, 2022 12:46pm weight loss Start: 04-29-2022 End: 08-11-2022 Tirzepatide (Mounjaro) 7.5 m g/0.5 mL pen injector Discontinued 7.5 mg SC EVERY WEEK 2 April 29, 2022 2:18pm August 11, 2022 12:46pm Start: 04-29-2022 End: 08-11-2022 Tirzepatide (Mounjaro) 7.5 m g/0.5 mL pen injector Discontinued 7.5 MG SC EVERY WEEK 2 April 29, 2022 1:18pm August 11, 2022 11:46am Start: 04-29-2022 End: 08-11-2022 Tirzepatide (Mounjaro) 7.5 m g/0.5 mL pen injector Discontinued 7.5 MG SC EVERY WEEK 2 April 29, 2022 2:18pm August 11, 2022 12:46pm Start: 04-29-2022 Tirzepatide (M ounjaro) 7.5 mg/0.5 mL pen injector Active 7.5 MG SC EVERY WEEK 2 April 29, 2022 2:18pm Start: 04-29-2022 Tirzepatide (M ounjaro) 7.5 mg/0.5 mL pen injector Active 7.5 MG SC EVERY WEEK 2 April 29, 2022 1:18pm Tirzepatide 7.5 mg/0.5 mL pe n injector (8 sources) Start: 08-20-2022 End: 03-08-2024 Tirzepatide 7.5 mg/0.5 mL pe n injector Discontinued 7.5 mg SC EVERY WEEK 2 3 August 20, 2022 11:17am March 08, 2024 11:38pm weight loss Start: 08-20-2022 End: 03-08-2024 Tirzepatide 7.5 mg/0.5 mL pe n injector Discontinued 7.5 mg SC EVERY WEEK 2 August 20, 2022 11:17am March 08, 2024 11:38pm Start: 08-11-2022 End: 08-20-2022 Tirzepatide 7.5 mg/0.5 mL pe n injector Discontinued 7.5 mg SC EVERY WEEK 2 1 August 11, 2022 12:46pm August 20, 2022 11:17am weight loss Start: 08-11-2022 End: 08-20-2022 Tirzepatide 7.5 mg/0.5 mL pe n injector Discontinued 7.5 mg SC EVERY WEEK 2 August 11, 2022 12:46pm August 20, 2022 11:17am 24 hr venlafaxine 75 mg extended release oral capsule (20 sources) Serotonin and Norepinephrine Reuptake Inhibitor Start: 12-27-2019 End: 03-12-2022 take 1 capsule by mouth every twenty-four hours at bedtime Venlafaxine 75 mg capsule,extended release 24hr Discontinued 75 mg PO AT BEDTIME 90 1 August 13, 2021 12:28pm January 19, 2022 8:53am Start: 11-15-2019 End: 12-27-2019 take 1 capsule by mouth every twenty-four hours at bedtime Venlafaxine 37.5 mg capsule,extended release 24hr Discontinued 37.5 mg PO AT BEDTIME 90 3 November 15, 2019 12:00am December 27, 2019 11:50am zinc gluconate 50 mg oral tablet (20 sources) Start: 06-04-2021 End: 01-28-2022 take 1 tablet by mouth once daily Zinc Gluconate 50 mg tablet Discontinued 50 mg PO DAILY June 04, 2021 12:00am January 28, 2022 11:27am supplement Problems Active Problems Problem Classification Problem Date Documented Date Episodic/Chronic Abdominal pain (20 sources) Acute abdominal pain; Translations: [Right upper quadrant pain] Resolved: 0 01-15-2015 Episodic Acquired foot deformities (2 sources) Hammer toe; Translations: [Hammer toe of second toe of right foot] 10-21-2017 Chronic Acute and unspecified renal failure (20 sources) Injury of kidney; Translations: [Acute kidney failure, unspecified] Episodic Administrative/social admission (4 sources) Medical examinations/reports status; Translations: [Physical exam without abnormal findings (Renamed from Encounter for routine adult health examination without abnormal findings)] 10-21-2017 Episodic Asthma (20 sources) Unspecified asthma with status asthmaticus; Translations: [Asthma] 10-21-2017 Chronic Comment on above: Spirometry next visi t. Mild, and controlled Asthma (6 sources) Asthma Chronic obstructive pulmonary disease and bronchiectasis (2 sources) Bronchitis; Translations: [Bronchitis] 10-21-2017 Episodic Chronic obstructive pulmonary disease and bronchiectasis (6 sources) Chronic obstructive pulmonary disease and bronchiectasis Disorders of lipid metabolism (20 sources) Hypertriglyceridemia; Translations: [Hyperchylomicronemia] 01-25-2018 Chronic Comment on above: on atorvastatin trig lycerides 325 back on atorvastatin Esophageal disorders (8 sources) Gastroesophageal reflux disease; Translations: [GERD (gastroesophageal reflux disease)] 10-21-2017 Chronic Comment on above: Mild, less than 2 ti mes weekly, cut back on coffee Essential hypertension (20 sources) Hypertensive disorder; Translations: [Essential (primary) hypertension] 01-25-2018 Chronic Comment on above: was well controlled on norvasc and HCTZ, pt stopped norvasc and BP risealso on estrogen per Dr. Hines, would decrease to 1/2unable to tolerate OLIVA or ARB due to cough once dced cough gone CONTROLLED ON MED Fluid and electrolyte disorders (20 sources) Dehydration; Translations: [Dehydration] Episodic Genitourinary symptoms and ill-defined conditions (8 sources) Urinary incontinence; Translations: [Urinary incontinence] Resolved: 0 08-28-2009 Chronic Comment on above: stable on vesicare Genitourinary symptoms and ill-defined conditions (10 sources) Dysuria; Translations: [Proteinuria] Resolved: 9 01-16-2015 Episodic Comment on above: in new hypertensive pt, spep upep normal Heart valve disorders (4 sources) Mitral valve prolapse; Translations: [Mitral valve prolapse] Resolved: 0 01-16-2015 Chronic Comment on above: stable Inflammation; infection of eye (except that caused by tuberculosis or sexually transmitteddisease) (4 sources) Serous conjunctivitis; Translations: [Acute conjunctivitis] 10-21-2017 Episodic Intestinal infection (4 sources) Viral gastroenteritis; Translations: [Viral intestinal infection, unspecified] 03-17-2024 Episodic Menopausal disorders (20 sources) Premenopausal menorrhagia; Translations: [Menopausal flushing] Resolved: 0 08-28-2009 Chronic Nonspecific chest pain (4 sources) Chest pain; Translations: [Chest pain] 10-21-2017 Episodic Other and unspecified benign neoplasm (2 sources) Lipoma of axilla; Translations: [Lipoma of axilla] 10-21-2017 Episodic Other and unspecified benign neoplasm (2 sources) Lipoma of lower limb; Translations: [Lipoma of lower extremity] 07-09-2016 Episodic Comment on above: rt groin will observ e for now and send to derm in Aug Other and unspecified benign neoplasm (7 sources) Lipoma of thigh; Translations: [Benign lipomatous neoplasm of skin and subcutaneous tissue of right leg] 06-27-2022 Episodic Other bone disease and musculoskeletal deformities (20 sources) Mass of head; Translations: [Other specified disorders of bone, other site] 09-21-2020 Episodic Comment on above: 12 mm submuscular sk ull mass central upper forehead Other circulatory disease (17 sources) Syncope due to orthostatic hypotension; Translations: [Orthostatic hypotension] 01-29-2022 Episodic Other circulatory disease (8 sources) Orthostatic hypotension; Translations: [Orthostatic hypotension] Episodic Other connective tissue disease (2 sources) Ganglion of foot; Translations: [Ganglion cyst of foot] 10-21-2017 Chronic Other connective tissue disease (2 sources) Cramp in lower limb; Translations: [Cramps of right lower extremity] 10-21-2017 Episodic Other connective tissue disease (4 sources) Achilles tendinitis Resolved: 9 07-17-2008 Episodic Comment on above: SPLAY [employer] SUPPOR T SHOE AND STRETCH Other connective tissue disease (2 sources) Plantar fascial fibromatosis; Translations: [Plantar fascial fibromatosis] 10-21-2017 Episodic Comment on above: rt Other ear and sense organ disorders (8 sources) Impacted cerumen; Translations: [Impacted cerumen, unspecified ear] 06-11-2022 Episodic Other ear and sense organ disorders (1 source) Impacted cerumen, unspecified ear; Translations: [Impacted cerumen] 06-11-2022 Episodic Other eye disorders (2 sources) Disorder of conjunctiva; Translations: [Conjunctival irritation] 10-21-2017 Episodic Other female genital disorders (6 sources) Dyspareunia; Translations: [Dyspareunia] Resolved: 9 07-17-2008 Chronic Comment on above: Chronic issue will e valuate with pelvic ultrasound. Will refer to IC DESIGN ENGINEER if persists. Other injuries and conditions due to external causes (4 sources) Motion sickness; Translations: [Motion sickness] 10-21-2017 Episodic Other lower respiratory disease (20 sources) Cough; Translations: [Cough] 10-21-2017 Episodic Comment on above: certrazine taking 2 qam Other lower respiratory disease (8 sources) Wheezing; Translations: [Wheezing] 10-21-2017 Episodic Other nervous system disorders (20 sources) Acute postoperative pain; Translations: [Other acute postprocedural pain] 09-20-2020 Episodic Other nervous system disorders (2 sources) Anesthesia of skin; Translations: [Anesthesia of skin] Onset: 5 Episodic Other non-traumatic joint disorders (20 sources) Pain in right knee; Translations: [Right knee pain] 01-09-2021 Episodic Other nutritional; endocrine; and metabolic disorders (4 sources) Body mass index 30+ - obesity; Translations: [BMI 35.0-35.9,adult] 01-25-2018 Chronic Other nutritional; endocrine; and metabolic disorders (2 sources) Obesity, unspecified Chronic Other nutritional; endocrine; and metabolic disorders (8 sources) Metabolic syndrome; Translations: [Dysmetabolic syndrome X] Chronic Other nutritional; endocrine; and metabolic disorders (2 sources) Increased uric acid level; Translations: [Elevated uric acid in blood] 01-25-2018 Episodic Comment on above: repeat normal Other screening for suspected conditions (not mental disorders or infectious disease) (20 sources) Breast neoplasm screening status; Translations: [Electrocardiogram abnormal] Onset: 5 06-16-2017 Episodic Comment on above: for preop Other skin disorders (2 sources) Sebaceous cyst Episodic Other skin disorders (2 sources) Epidermoid cyst of skin; Translations: [Sebaceous cyst] 10-21-2017 Episodic Other skin disorders (1 source) Disorder of inguinal region; Translations: [Full-term infant] 06-11-2022 Episodic Other upper respiratory disease (2 sources) Allergic rhinitis; Translations: [Allergic rhinitis due to other allergen] 10-21-2017 Chronic Comment on above: add saline rinse Other upper respiratory disease (4 sources) Allergic rhinitis due to other allergen Chronic Other upper respiratory infections (20 sources) Pharyngitis; Translations: [Upper respiratory infection] Onset: 7 07-03-2016 Episodic Residual codes; unclassified (1 source) Hypersomnia, unspecified; Translations: [Hypersomnia, unspecified] Onset: 5 Chronic Residual codes; unclassified (2 sources) Postmenopausal state; Translations: [Postmenopausal (Renamed from Postmenopausal status)] 01-25-2018 Episodic Comment on above: By [employer] for hot f lashes, hs had hysterectomy Skin and subcutaneous tissue infections (16 sources) Cellulitis and abscess of other specified sites; Translations: [Pyoderma] 10-21-2017 Episodic Comment on above: RT arm RESOLVED Spondylosis; intervertebral disc disorders; other back problems (20 sources) Cervical radiculopathy; Translations: [Other cervical disc displacement, unspecified cervical region] 10-21-2017 Chronic Comment on above: have tried biofreeze , massage, Nsaid, no relief, dry needle, physical therapy, will get MRI send to [facility] adding gabapentin and muscle relax worsening C6 &C7 Spondylosis; intervertebral disc disorders; other back problems (20 sources) Cervical radiculopathy; Translations: [Radiculopathy, cervical region] 03-24-2018 Episodic Sprains and strains (2 sources) Strain of neck muscle; Translations: [Cervical strain] 10-21-2017 Episodic Comment on above: unrelieved with ibup rofen Syncope (20 sources) Syncope; Translations: [Syncope and collapse] Episodic Unclassified (1 source) History and physical examination, annual for health maintenance ; Translations: [Encounter for general adult medical examination without abnormal findings] Onset: 7 10-20-2016 Unclassified (20 sources) Unclassified (6 sources) Screening status; Translations: [Encounter for screening for malignant neoplasm of colon (Renamed from Special screening for malignant neoplasms, colon)] Resolved: 9 01-25-2018 Unclassified (20 sources) Hypercholesteremia (272.0) Unclassified (12 sources) Non-smoker; Translations: [Nonsmoker] 01-25-2018 Unclassified (6 sources) BMI 35.0-35.9,adult Unclassified (4 sources) Postmenopausal (Renamed from Postmenopausal status) Unclassified (4 sources) Elevated uric acid in blood Unclassified (2 sources) Conjunctival irritation (372.89) Urinary tract infections (4 sources) Acute cystitis; Translations: [Acute cystitis] Resolved: 9 07-17-2008 Episodic Viral infection (4 sources) Disease caused by 2019-nCoV; Translations: [COVID-19] 03-09-2024 Episodic Past or Other Problems Problem Classification Problem Date Documented Date Episodic/Chronic Coronary atherosclerosis and other heart disease (2 sources) Coronary atherosclerosis and other heart disease Inflammatory diseases of female pelvic organs (2 sources) Vulvovaginitis; Translations: [Vaginitis and vulvovaginitis] Resolved: 9 04-12-2015 Episodic Menstrual disorders (2 sources) Irregular periods; Translations: [Irregular menstrual cycle] Resolved: 8 01-25-2018 Chronic Mycoses (2 sources) Candidiasis of mouth; Translations: [Candidiasis, mouth] Resolved: 0 01-19-2015 Episodic Nausea and vomiting (20 sources) Nausea; Translations: [Nausea, vomiting and diarrhea] Onset: 5 Resolved: 0 01-16-2015 Episodic Other aftercare (3 sources) Laceration without foreign body of right hand, subsequent encounter; Translations: [Laceration without foreign body of right hand, subsequent encounter] Onset: 7 10-13-2016 Episodic Other connective tissue disease (2 sources) Calcaneal spur; Translations: [Spur, calcaneal] Resolved: 0 11-06-2009 Episodic Comment on above: rt Other non-traumatic joint disorders (2 sources) Joint pain; Translations: [Pain in joint involving other specified sites] Resolved: 9 01-19-2015 Episodic Comment on above: rt foot tendonitis Other nutritional; endocrine; and metabolic disorders (2 sources) Obesity; Translations: [Obesity, unspecified] Resolved: 0 12-12-2014 Chronic Comment on above: Referral why weight Other upper respiratory disease (5 sources) Pain in throat; Translations: [Acute pharyngitis, unspecified] Onset: 7 07-03-2016 Episodic Spondylosis; intervertebral disc disorders; other back problems (2 sources) Spondylosis; intervertebral disc disorders; other back problems Superficial injury; contusion (2 sources) Insect bite, nonvenomous, of shoulder and upper arm, infected; Translations: [Insect bite, nonvenomous of shoulder and upper arm, infected] Resolved: 0 04-12-2015 Episodic Unclassified (20 sources) Unspecified Diagnosis 07-09-2016 Unclassified (4 sources) Spur, calcaneal (726.73) Unclassified (4 sources) FIBROMATOSIS, PLANTAR FASCIAL (728.71) Unclassified (4 sources) Pre-operative examination, unspecified (V72.84) Unclassified (8 sources) Patient encounter status; Translations: [Breast cancer screening] 08-05-2017 Comment on above: physician annual wel lness Unclassified (2 sources) Abnormal EKG(794.31) Unclassified (4 sources) Irregular Menstraul Cycle (626.4) Unclassified (4 sources) Cervical strain (847.0) Unclassified (2 sources) Deliveries (Parity); Translations: [Deliveries (Parity)] 10-21-2017 Comment on above: 2 Unclassified (4 sources) Patient examined; Translations: [Physical exam for work/school/camp (Renamed from Encounter for school health examination)] 10-21-2017 Unclassified (4 sources) Well Female (V72.31) (II) Unclassified (2 sources) Pregnancies (); Translations: [Pregnancies ()] 10-21-2017 Comment on above: 2 Unclassified (2 sources) Preprocedural examination done; Translations: [Pre-operative examination] 10-21-2017 Comment on above: Rt foot plantar faci atis and heel spur removal on September 07 Dr. Kidd Unclassified (4 sources) SYMPTOMS INVOLVING URINARY SYSTEM; DYSURIA (788.1) Unclassified (2 sources) Tubal Ligation; Translations: [Tubal Ligation] 10-21-2017 Unclassified (2 sources) Requires vaccination; Translations: [Vaccine for [id number] ussis with poliomyelitis] 10-21-2017 Unclassified (4 sources) hyperpigmentation Resolved: 0 08-28-2009 Comment on above: discussed optioons Unclassified (2 sources) Vaginitis and vulvovaginitis, unspecified (616.10) Unclassified (2 sources) Pain in Joint, Other Spec Site (719.48) Unclassified (6 sources) Abdominal Pain,RUQ(789.01) Unclassified (4 sources) Insect bite, nonvenomous of shoulder and upper arm, infected (912.5) Unclassified (2 sources) CANDIDIASIS, MOUTH (THRUSH) (112.0) Unclassified (2 sources) Physical exam without abnormal findings (Renamed from Encounter for routine adult health examination without abnormal findings) Unclassified (2 sources) Hypertriglyceridemia, sporadic Unclassified (2 sources) Cramps of right lower extremity Unclassified (2 sources) Encounter for screening mammogram for breast cancer (Renamed from Encounter for screening mammogram for malignant neoplasm of breast) Unclassified (2 sources) BMI 33.0-33.9,adult Unclassified (6 sources) Cervical radiculopathy, acute (Renamed from Acute cervical radiculopathy) Unclassified (2 sources) Ganglion cyst of foot Unclassified (2 sources) Hammer toe of second toe of right foot Unclassified (2 sources) PREVENTION OF TETANUS (V03.7) Unclassified (2 sources) Lipoma of lower extremity (214.8) Unclassified (2 sources) Lipoma of axilla (214.1) Unclassified (2 sources) Work Physical (V70.5) Unclassified (19 sources) history anterior ceervical fusion 09-29-2021 Comment on above: 04/08/18 Results Test Name Value Interpretation Reference Range Facility NCS and/or EMG Patienton NCS and/or EMG Patient [facility]Neurology [address] [place] [address] MR#: [id number] Acct: [id number] Name: SUSAN SALAZAR Rep #: [id number] : [id number] From: Khoa Mohan MD Referring Dr: Laury Lee SENIOR SOFTWARE MANAGER-C Status: REG C LI Location: [facility] Date: 08/23/24 Sex: F C NCS and/or EMG Patient Report Ordering Doctor: Laury Lee DATE OF SERVICE: 08/23/24 Clinical Summary: 58 year old female patient with symptoms of numbness and tingling in the left hand. Nerve Conduction Studies Summary: Nerve conduction studies were performed in the left upper extremity. The left median-D2 SNAP distal latency was prolonged. Needle Examination Summary: Needle examination of select muscles of the left upper extremity was normal. Impression: This is an abnormal study. 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 Multi Select Codes Neurology Neurology Interp Codes: 22615-17 Musc test done w/n test comp (interp) (1) and 96087-17 Nrv cndj tst 5-6 studies (interp) 08/23/24 1447 Date Khoa Mohan MD CC: VARUN Lee; VARUN Osman; Dr. Khoa Mohan MD Date Dictated: 08/23/241422 Date Transcribed: 08/23/241422 Leather Crafter: Signed Normal [facility] Thyroid Peroxidase ABon 05-0 THYR PEROX AB < 9 Normal 0-34 [facility] Comment on above: Result Comment: Perf ormed at: - [facility] [address] [id number] Biostatistics Professor: Kyler Montiel PhD, Phone: [phone] Performed By: #### L 503.0106, L501.9520, L3300.6900, L500.2500, L501.9985, L506.1001 #### [facility] [address] [place], [place], [id number] Anion gap in Serum or Plasma Ordered By: Dae Osman on 07-04-2024 Anion gap [Moles/Vol] 12 mmol/L 5-15 [facility] BUN/creatinine ratioOrdered By: Dae Osman on 07-04-2024 Urea nitrogen/Creatinine [Mass ratio] 25.1 mg/mg High 10-20 [facility] Basic Metabolic Profile (BMP )on 07-04-2024 BUN/CRE 25.1 RATIO High -20 [facility] Comment on above: Performed By: #### L 503.0106, L501.9520, L3300.6900, L500.2500, L501.9985, L506.1001 #### [facility] [address] [place], [address] Calcium [Mass/Vol] 9.7 mg/dL Normal 7.6-11.0 [facility] Comment on above: Performed By: #### L 503.0106, L501.9520, L3300.6900, L500.2500, L501.9985, L506.1001 #### [facility] [address] [place], [address] Chloride [Moles/Vol] 105 mmol/L Normal 98-108 [facility] Comment on above: Performed By: #### L 503.0106, L501.9520, L3300.6900, L500.2500, L501.9985, L506.1001 #### [facility] [address] [place], [address] CO2 [Moles/Vol] 20.8 mmol/L Low 21.0-32.0 [facility] Comment on above: Performed By: #### L 503.0106, L501.9520, L3300.6900, L500.2500, L501.9985, L506.1001 #### [facility] [address] [place], [address] Creatinine [Mass/Vol] 0.68 mg/dL Low 0.70-1.20 [facility] Comment on above: Performed By: #### L 503.0106, L501.9520, L3300.6900, L500.2500, L501.9985, L506.1001 #### [facility] [address] [place], [address] GAP 12 Normal 5-15 [facility] Comment on above: Performed By: #### L 503.0106, L501.9520, L3300.6900, L500.2500, L501.9985, L506.1001 #### [facility] [address] [place], [address] GFR/1.73 sq M.predicted among non-blacks MDRD (S/P/Bld) [Vol rate/Area] 102 mL/min/{1.73_m2} Normal >60 [facility] Comment on above: Result Comment: mL/m in/1.73m2 CKD-EPI Creatinine Equation (2020) Performed By: #### L 503.0106, L501.9520, L3300.6900, L500.2500, L501.9985, L506.1001 #### [facility] [address] [place], [address] Glucose [Mass/Vol] 116 mg/dL High 70-99 [facility] Comment on above: Performed By: #### L 503.0106, L501.9520, L3300.6900, L500.2500, L501.9985, L506.1001 #### [facility] [address] [place], [address] Potassium [Moles/Vol] 4.0 mmol/L Normal 3.3-5.1 [facility] Comment on above: Performed By: #### L 503.0106, L501.9520, L3300.6900, L500.2500, L501.9985, L506.1001 #### [facility] [address] [place], [address] Sodium [Moles/Vol] 138 mmol/L Normal 133-145 [facility] Comment on above: Performed By: #### L 503.0106, L501.9520, L3300.6900, L500.2500, L501.9985, L506.1001 #### [facility] [address] [place], [address] Urea nitrogen [Mass/Vol] 17 mg/dL Normal 4-19 [facility] Comment on above: Performed By: #### L 503.0106, L501.9520, L3300.6900, L500.2500, L501.9985, L506.1001 #### [facility] [address] [place], [address] Carbon dioxide, total [Moles /volume] in Central venous bloodOrdered By: Dae Osman on 07-04-2024 CO2 [Moles/Vol] 20.8 mmol/L Low 21.0-32.0 [facility] Chloride assayOrdered By: Jonathan Osman on 07-04-2024 Chloride [Moles/Vol] 105 mmol/L 98-108 [facility] Glomerular filtration rate ( GFR) estimation/1.73 sq m using serum, plasma, or whole bOrdered By: Dae Osman on 07-04-2024 GFR/1.73 sq M.predicted among non-blacks MDRD (S/P/Bld) [Vol rate/Area] 102 mL/min/{1.73_m2} >60 [facility] Comment on above: mL/min/1.73m2 CKD-EP I Creatinine Equation (2020) Hemoglobin A1con 07-04-2024 HbA1c (Bld) [Mass fraction] 5.7 % Normal <=5.6 [facility] Comment on above: Result Comment: Norm al < 5.7 % Prediabetic 5.7 - 6.4 % Diabetic >or= 6.5 % Please note range changes. Performed By: #### L 503.0106, L501.9520, L3300.6900, L500.2500, L501.9985, L506.1001 #### [facility] [address] [place], [place], [id number] Hemoglobin A1c percentageOrd ered By: Dae Osman on 07-04-2024 HbA1c (Bld) [Mass fraction] 5.7 % <5.7 [facility] Comment on above: Normal < 5.7 % Predi abetic 5.7 - 6.4 % Diabetic >or= 6.5 % Please note range changes. Potassium measurement (mass/ volume)Ordered By: Dae Osman on 07-04-2024 Potassium (Unsp spec) [Mass/Vol] 4.0 mmol/L 3.3-5.1 [facility] Serum creatinine measurement (mass/volume)Ordered By: Dae Osman on 07-04-2024 Creatinine [Mass/Vol] 0.68 mg/dL Low 0.70-1.20 [facility] Serum glucose measurement (m ass/volume)Ordered By: Dae Osman on 07-04-2024 Glucose [Mass/Vol] 116 mg/dL High 70-99 [facility] Serum or plasma calcium marisela urement (mass/volume)Ordered By: Dae Osman on 07-04-2024 Calcium [Mass/Vol] 9.7 mg/dL 7.6-11.0 [facility] Serum or plasma thyroperoxid ase antibody assay (units/volume)Ordered By: Dae Osman on 07-04-2024 TPO Ab Qn [IU]/mL 0-34 [facility] Comment on above: Performed at: [address] [id number] Director: Kyler Montiel PhD, Phone: [phone] Serum or plasma urea nitroge n measurement (mass/volume)Ordered By: Dae Osman on 07-04-2024 Urea nitrogen [Mass/Vol] 17 mg/dL 4-19 [facility] Sodium levelOrdered By: Dae Osman on 07-04-2024 Sodium [Moles/Vol] 138 mmol/L 133-145 [facility] TSH DL <= 0.005 mIU/L QnOrde red By: Dae Osman on 07-04-2024 TSH Qn 1.400 uIU/mL 0.300-4.20 0 [facility] Thyroid Stim Hormone (TSH)on 07-04-2024 TSH 1.400 uIU/mL Normal 0.300-4.20 0 [facility] Comment on above: Performed By: #### L 503.0106, L501.9520, L3300.6900, L500.2500, L501.9985, L506.1001 #### [facility] [address] [place], [place], [id number] ([address]) Vitamin B12on 07-04-2024 Cobalamin (Vitamin B12) [Mass/Vol] 558 pg/mL Normal 180-914 [facility] Comment on above: Performed By: #### L 503.0106, L501.9520, L3300.6900, L500.2500, L501.9985, L506.1001 #### [facility] [address] [place], [place], [id number] Vitamin B12 ser/plasOrdered By: Dae Osman on 07-04-2024 Cobalamin (Vitamin B12) [Mass/Vol] 558 pg/mL 180-914 [facility] Vitamin D,25 Hydroxyon 07-04 Vitamin D 25-OH 35.8 ng/mL Normal 30-100 [facility] Comment on above: Result Comment: Barbara min D Status Deficiency: <20 ng/mL (50nmol/L) Insufficiency: 20-30 ng/mL (50-75 nmol/L) Sufficiency: 30-100 ng/mL (75-250 nmol/L) Toxicity: >100 ng/mL (>250 nmol/L) Performed By: #### L 503.0106, L501.9520, L3300.6900, L500.2500, L501.9985, L506.1001 #### [facility] [address] [place], [place], [address] Breast imaging reportOrdered By: Pola Gacría on 05-05-2024 Study report [facility] Imaging Services [address] [place], [place] [address] SCRN MAMM (CAD)W/EZRA BILAT MR#: [id number] Acct: [id number] Name: SUSAN SALAZAR Rep #: [id number] : 1965 F 58 From: Andrew García MD PCP: VARUN Nielsen Status: REG CLI Study:SCRN MAMM (CAD)W/EZRA BILAT Date of Exa m: 05/05/24 Exam# [id number] Ordering Dr: Jonathan Osman [facility] SENIOR SOFTWARE MANAGER-C PROCEDURE: SCRN MAMM (CAD)W/EZRA BILAT REASON FOR EXAM: F, Age 58 y/o, aunts with breast cancer. Annual mammographic follow-up. TECHNIQUE: Bilateral screening digital breast tomosynthesis with 2D and 3D images. Computeraided detection. COMPARISON: Prior exam(s) dating back to January 06, 2023.. FINDINGS: There are scattered areas of fibroglandular density. Stable examination. No suspicious masses, areas of developing architectural distortion, or suspicious calcifications. BI/SCRN MAMM (CAD)W/EZRA BILAT IMPRESSION: BI-RADS 1: NEGATIVE. RECOMMEND ANNUAL MAMMOGRAPHIC SCREENING. Follow-up code: Routine Follow-up The patient will be notified of the results by letter. Reading Location: [id number] CC: VARUN Osman ~ Leather Crafter: Signed [facility] SCRN MAMM (CAD)W/EZRA BILATo n 05-05-2024 SCRN MAMM (CAD)W/EZRA BILAT [facility] Imaging Services [address] [place], [place] [address] SCRN MAMM (CAD)W/EZRA BILAT MR#: [id number] Acct: [id number] Name: SUSAN SALAZAR Rep #: [id number] : 1965 F 58 From: Pola rodriguez MD PCP: VARUN Nielsen Status: REG CLI Study: SCRN MAMM (CAD)W/EZRA BILAT Date of Exam: 08/24 Exam# [id number] Ordering Dr: Dae Osman [facility] SENIOR SOFTWARE MANAGER-C PROCEDURE: SCRN MAMM (CAD)W/EZRA BILAT REASON FOR EXAM: F, Age 58 y/o, aunts with breast cancer. Annual mammographic follow-up. TECHNIQUE: Bilateral screening digital breast tomosynthesis with 2D and 3D images. Computer aided detection. COMPARISON: Prior exam(s) dating back to January 06, 2023.. FINDINGS: There are scattered areas of fibroglandular density. Stable examination. No suspicious masses, areas of developing architectural distortion, or suspicious calcifications. BI/SCRN MAMM (CAD)W/EZRA BILAT IMPRESSION: BI-RADS 1: NEGATIVE. RECOMMEND ANNUAL MAMMOGRAPHIC SCREENING. Follow-up code: Routine Follow-up The patient will be notified of the results by letter. Reading Location: [id number] CC: VARUN Osman Leather Crafter: Signed Normal [facility] Emergency Department Summary on 03-08-2024 Emergency Department Summary [facility] Medical Records Department [address] [place] [address] Emergency Department Summary 03/08/24 MR#: [id number] Acct: [id number] Name: SUSAN SALAZAR Rep #: [id number] : 1965 58 From: Butch Christina DO PCP: VARUN Nielsen Status:REG ER Location: ED HPI History of Present Illness Chief Complaint: Nausea/Vomiting/Diarrhe a Narrative Narrative: Patient is a 58-year-old female past medical history of hyperlipidemia, hypertension, asthma who presents to the emergency department chief complaint of nausea vomiting diarrhea. Patient states that earlier this evening she started to feel unwell. She states that she has vomited multiple times therefore she came here for the valuation management. Patient denies any recent sick contacts. Patient denies any abdominal pain. [facility] Medical History Elevated LFTs Hyperlipidemia Right knee pain Encounter for preventative adult health care examination Skull mass Wears glasses Post-menopausal Gastric reflux Non-smoker Hot flashes due to menopause Mass of face Intervertebral disc protrusion High triglycerides High cholesterol Asthma HTN (hypertension) Home Medications ???Medication ???Instructions ???Recorded ???Last Taken ???Type calcium carbonate (Calcium 600) 600 mg PO DAILY supplement 04/04/20 Unknown History cholecalciferol (vitamin D3) 250 400 mcg PO DAILY vit d 04/04/20 Unknown History mcg (10,000 unit) capsule rosuvastatin 5 mg tablet 5 mg PO DAILY cholesterol #90 tabs 02/18/22 Unknown Rx scopolamine base 1 mg over 3 days 1 patch transdermal Q3D PRN motion 03/12/22 Unknown Rx transdermal patch sickness #24 ea venlafaxine 75 mg capsule,extended 75 mg PO QHS nerve pain #90 caps 03/12/22 Unknown Rx release 24 hr olmesartan 5 mg tablet 5 mg PO BID BP #180 tabs 08/21/22 Unknown Rx dicyclomine 20 mg tablet 20 mg PO TID #30 tabs 03/09/24 Unknown Rx ondansetron 4 mg disintegrating 4 mg PO Q6H PRN nausea and 03/09/24 Unknown Rx tablet vomiting #30 tabs Allergy/AdvReac Type Severity Reaction Status Date / Time No Known Allergies Allergy Verified 03/08/24 22:38 Family History Mother Hypertension Asthma Father Hypertension Cancer of kidney Brother Hypertension Surgical History Hx of colonoscopy History of foot surgery history anterior ceervical fusion Hx of cholecystectomy H/O: hysterectomy Social History Smoking Status: Never smoker alcohol intake: never substance use type: does not use what type of physical activity do you participate in: walking additional social history: Does not take aspirin Does take Ibuprofen as needed ROS ROS ED ROS Narrative Constitutional: Complains of chills denies any fevers, headache, lightheadedness, dizziness Cardiovascular: Denies chest pain or palpitations Respiratory: Denies coughing wheezing shortness of breath Abdomen: Complains of nausea vomiting diarrhea as noted above denies any abdominal pain : Denies any urinary symptoms Neurological: Denies any numbness, wheeze, tingling Musculoskeletal: Denies back pain Skin: Denies rashes or lesions EXAM Physical Exam Narrative Exam Narrative: General: Patient lying in bed does appear to feel unwell overall Head: Atraumatic, normocephalic Eyes: PERRL bilaterally, EOMI bilateral, no conjunctival injection noted Neck: Soft, supple, trachea midline Cardiovascular: Regular rate and rhythm no murmurs gallops rubs noted Respiratory: Clear to auscultation bilaterally Abdomen: Soft, nondistended, no tenderness to palpation, bowel sounds present x 4 Extremities: +5/5 strength noted in the bilateral upper and lower extremities Neurological: Patient following commands knew that she was at [facility] year is 2023 Skin: Warm, dry, intact no rashes or lesions noted Const Vital Signs: 03/08/24 22:39 Temperature 98 F Temperature Source Axillary Pulse Rate 96 Respiratory Rate 20 H Blood Pressure 121/68 H Blood Pressure Mean 85 Pulse Ox 96 Oxygen Delivery Method Room Air MDM MDM MDM Narrative Medical decision making narrative: Patient is a 58-year-old female who presented to the emergency department with chief complaint of nausea vomiting diarrhea. On the differential diagnose includes but not limited to COVID, influenza, other viral gastroenteritis. Patient be given Zofran. Patient will then be reevaluated. Patient test positive for COVID-19. Reevaluation the patient and she feels better she would like to go home at this point time. Patient given prescription for Zofran and Bentyl. (more content not included)... Normal [facility] Influenza virus A and B and SARS-CoV-2 (COVID-19) and Respiratory syncytial virus RNAOrdered By: Butchzeb Christina on 03-08-2024 SARS-CoV-2 (COVID-19) RNA DAREK+probe Ql (Unsp spec) SARS-CoV-2 (COVID 19 PCR) Abnormal [facility] M100.678on 03-08-2024 M100.678 Copy of report sent to Infection Control Printer [id number] 03/09/24728 JAI. SARS-CoV-2 (COVID 19) A Positive A INFLUENZA A Negative INFLUENZA B Negative RSV PCR Negative SARS-CoV-2 (COVID 19 PCR) * This is an amended result. * A prior result that was reported as final has been changed. 03/09/24728 by JAI Normal [facility] Comment on above: Performed By: #### M 100.678 #### [facility] [address] [place], [place] [address]. [place], [place], [id number] Absolute lymphocyte countOrd ered By: Santhosh Abbott on 12-09-2022 Lymphocytes Auto (Unsp spec) [#/Vol] 1.94 10*3/uL 0.83-4.51 [facility] Absolute reticulocyte countO rdered By: Santhosh Abbott on 12-09-2022 Reticulocytes (Bld) [#/Vol] 0.00 10*3/uL 0-5 [facility] Basophil percentageOrdered B y: Santhosh Abbott on 12-09-2022 Basophil percentage 3.1 mg/dL 2.5-4.9 [facility] Bilirubin [Mass/Vol] 0.40 mg/dL 0.20-1.00 [facility] Comment on above: For patients on eltr ombopag therapy, use of Dimension [place] TBIL is not recommended. Chloride [Moles/Vol] 107 mmol/L 98-107 [facility] Cholesterol [Mass/Vol] 205 mg/dL <200 [facility] Comment on above: <200 mg/dL Desirable 200-240 mg/dL Borderline >240 mg/dL High Risk Glucose [Mass/Vol] 97 mg/dL 74-106 [facility] LDH [Catalytic activity/Vol] 158 U/L 84-246 [facility] Neutrophils (Bld) [#/Vol] 2.4 10*3/uL 2.0-7.7 [facility] Potassium [Moles/Vol] 4.4 mmol/L 3.5-5.1 [facility] Protein [Mass/Vol] 6.5 g/dL 6.4-8.2 [facility] Sodium [Moles/Vol] 137 mmol/L 136-145 [facility] Triglyceride [Mass/Vol] 134 mg/dL <199 [facility] Comment on above: The drugs N-Acetylcy steine and Metamizole may falsely depress this assay.Serum Triglycerides Reference Interval Normal <150 mg/dL Borderline high 150 - 199 mg/dL High 200 - 499 mg/dL Very High > or = 500 mg/dL WBC (Bld) [#/Vol] 4.8 10*3/uL 4.4-11.0 [facility] Bilirubin Test strip Ql (U)O rdered By: Santhosh Abbott on 12-09-2022 Bilirubin Ql (U) Negative Negative [facility] Blood erythrocytes count (nu mber/volume)Ordered By: Santhosh Abbott on 12-09-2022 RBC (Bld) [#/Vol] 4.45 10*6/uL 4.2-5.4 [facility] Blood hemoglobin measurement (mass/volume)Ordered By: Santhosh Abbott on 12-09-2022 Hemoglobin (Bld) [Mass/Vol] 13.4 g/dL 12.0-15.0 [facility] Blood platelet mean volumeOr dered By: Santhosh Abbott on 12-09-2022 Platelet mean volume (Bld) [Entitic vol] 10.1 fL 6.2-12.0 [facility] Determination of erythrocyte mean corpuscular volume (MCV)Ordered By: Santhosh Abbott on 12-09-2022 MCV (RBC) [Entitic vol] 90.8 fL 81-99 [facility] Direct bilirubinOrdered By: [facility]da Abbott on 12-09-2022 Bilirubin.direct [Mass/Vol] 0.09 mg/dL 0.00-0.30 [facility] Hematocrit Auto (Bld) [Volum e fraction]Ordered By: [facility] Abbott on 12-09-2022 Hematocrit (Bld) [Volume fraction] 40.4 % 37-47 [facility] Ketones Test strip Ql (U)Ord ered By: Kellilos angelesbrenda Abbott on 12-09-2022 Ketones Ql (U) Negative Negative [facility] - Chemistry and C hemistry - challengeOrdered By: moonlos angelesbrenda Abbott on 12-09-2022 ALP [Catalytic activity/Vol] 97 U/L 45-117 [facility] ALT [Catalytic activity/Vol] 35 U/L 13-56 [facility] Cholesterol.total/Olivia sterol in HDL [Mass ratio] 3.10 {ratio} [facility] CO2 [Moles/Vol] 23.0 mmol/L 21.0-32.0 [facility] Globulin (S) [Mass/Vol] 3.1 g/dL 2.2-4.2 [facility] Urea nitrogen/Creatinine [Mass ratio] 21.7 mg/mg 10-20 [facility] - Hematology and Cell countsOrdered By: Santhosh Abbott on 12-09-2022 Erythrocyte distribution width (RBC) [Entitic vol] 43.2 fL 35.1-43.9 [facility] Erythrocyte distribution width (RBC) [Ratio] 13.0 % 11.6-14.6 [facility] MCH (RBC) [Entitic mass] 30.1 pg 27.0-32.0 [facility] Nucleated RBC/100 WBC (Bld) [Ratio] 0 % 0-5 [facility] MCHC Auto (RBC) [Mass/Vol]Or dered By: Santhosh Abbott on 12-09-2022 MCHC (RBC) [Mass/Vol] 33.2 g/dL 32-36 [facility] Nitrite Test strip Ql (U)Ord ered By: Santhosh Abbott on 12-09-2022 Nitrite Ql (U) Negative Negative [facility] No Panel InformationOrdered By: Santhosh Abbott on 12-09-2022 Estimated GFR (MDRD) Amer 134 mL/min >60 [facility] Comment on above: GFR Calc Estimated GFR (MDRD) Non-Af Amer 111 mL/min >60 [facility] Comment on above: Non- GFR Calc Platelets bldOrdered By: Jian Abbott on 12-09-2022 Platelets (Bld) [#/Vol] 244 10*3/uL 150-450 [facility] Protein Test strip Ql (U)Ord ered By: Santhosh Abbott on 12-09-2022 Protein Ql (U) Negative Negative [facility] Segmented neutrophils/100 WB C Auto (Bld)Ordered By: Santhosh Abbott on 12-09-2022 Segmented neutrophils/100 WBC (Bld) 48.6 % 47-70 [facility] Serum or plasma albumin marisela urement (mass/volume)Ordered By: Santhosh Abbott on 12-09-2022 Albumin [Mass/Vol] 3.4 g/dL 3.2-5.0 [facility] Serum or plasma albumin/glob ulin mass ratioOrdered By: Santhosh Abbott on 12-09-2022 Albumin/Globulin [Mass ratio] 1.1 {ratio} 0.9-2.4 [facility] Serum or plasma calcium marisela urement (mass/volume)Ordered By: Santhosh Abbott on 12-09-2022 Calcium [Mass/Vol] 9.0 mg/dL 8.5-10.1 [facility] Serum or plasma cholesterol in HDL measurement (mass/volume)Ordered By: Santhosh Abbott on 12-09-2022 Cholesterol in HDL [Mass/Vol] 67 mg/dL >40 [facility] Comment on above: The drugs N-Acetylcy steine and Metamizole may falsely depress this assay. Reference Range HDL <40 mg/dL Low HDL Cholesterol HDL >or= 60 mg/dL High HDL Cholesterol Serum or plasma cholesterol in VLDL measurement (mass/volume)Ordered By: Santhosh Abbott on 12-09-2022 Cholesterol in VLDL [Mass/Vol] 27 mg/dL 5-40 [facility] Serum or plasma creatinine m easurement (mass/volume)Ordered By: Santhosh Abbott on 12-09-2022 Creatinine [Mass/Vol] 0.60 mg/dL 0.55-1.02 [facility] Comment on above: The validity of the calculated GFR & GFRAA in patients over 70 years has not been determined. Clinical correlation is essential. Serum or plasma low density lipoprotein (LDL) cholesterol measurement (mass/volume)Ordered By: Santhosh Abbott on 12-09-2022 Cholesterol in LDL [Mass/Vol] 111 mg/dL 0-130 [facility] Serum or plasma urea nitroge n measurement (mass/volume)Ordered By: Santhosh Abbott on 12-09-2022 Urea nitrogen [Mass/Vol] 13 mg/dL 7-18 [facility] Serum or plasma uric acid me asurement (mass/volume)Ordered By: Santhosh Abbott on 12-09-2022 Urate [Mass/Vol] 5.4 mg/dL 2.6-6.0 [facility] Comment on above: The drugs N-Acetylcy steine and Metamizole may falsely depress this assay. Thin prep Papanicolaou smear with manual screeningOrdered By: Santhosh Abbott on 12-09-2022 Thin prep Papanicolaou smear with manual screening 18 U/L 15-37 [facility] Thin prep Papanicolaou smear with manual screening 7 5-15 [facility] Urine blood detectionOrdered By: Santhosh Abbott on 12-09-2022 RBC Ql (U) Negative Negative [facility] Urine clarityOrdered By: Jian Abbott on 12-09-2022 Clarity (U) Clear Clear [facility] Urine color determinationOrd ered By: Santhosh Abbott on 12-09-2022 Color (U) Yellow Yellow [facility] Urine glucose detectionOrder ed By: Santhosh Quinonezguillermosixto on 12-09-2022 Glucose Ql (U) Normal mg/dl Normal [facility] Urine leukocyte esterase det ection by dipstickOrdered By: Santhosh Abbott on 12-09-2022 Leukocyte esterase Test strip Ql (U) Negative Negative [facility] Urine pHOrdered By: Mike Abbott on 12-09-2022 pH (U) 7.0 [pH] 5.0 - 8.0 [facility] Urine specific gravity measu rementOrdered By: moonlos angelesbrenda Quinonezguillermosixto on 12-09-2022 Specific gravity (U) [Rel density] 1.010 1.002-1.03 0 [facility] Urobilinogen Auto test strip Ql (U)Ordered By: Santhosh Abbott on 12-09-2022 Urobilinogen Ql (U) Normal mg/dl Normal [facility] Basophil percentageOrdered B y: Dae Osman on 06-09-2022 Cholesterol [Mass/Vol] 152 mg/dL <200 [facility] Comment on above: <200 mg/dL Desirable 200-240 mg/dL Borderline >240 mg/dL High Risk Triglyceride [Mass/Vol] 62 mg/dL <199 [facility] Comment on above: The drugs N-Acetylcy steine and Metamizole may falsely depress this assay.Serum Triglycerides Reference Interval Normal <150 mg/dL Borderline high 150 - 199 mg/dL High 200 - 499 mg/dL Very High > or = 500 mg/dL No Panel InformationOrdered By: Dae Osman on 06-09-2022 Parathyroid Hormone (Intact) 53.2 pg/mL 18.4-80.1 [facility] Vitamin D 25-Hydroxy 32.5 ng/mL [facility] Comment on above: Vitamin D 25(OH) Sta tus Range Deficiency <20 ng/mL (50nmol/L) Insufficiency 20 - 30 ng/mL (50 - 75 nmol/L) Sufficiency 30 - 100 ng/mL (75 - 250 nmol/L) Toxicity >100 ng/mL (>250 nmol/L) Serum or plasma cholesterol in HDL measurement (mass/volume)Ordered By: Dae Osman on 06-09-2022 Cholesterol in HDL [Mass/Vol] 70 mg/dL >40 [facility] Comment on above: The drugs N-Acetylcy steine and Metamizole may falsely depress this assay. Reference Range HDL <40 mg/dL Low HDL Cholesterol HDL >or= 60 mg/dL High HDL Cholesterol Serum or plasma cholesterol in VLDL measurement (mass/volume)Ordered By: Dae Osman on 06-09-2022 Cholesterol in VLDL [Mass/Vol] 12 mg/dL 5-40 [facility] Serum or plasma low density lipoprotein (LDL) cholesterol measurement (mass/volume)Ordered By: Dae Osman on 06-09-2022 Cholesterol in LDL [Mass/Vol] 70 mg/dL 0-130 [facility] Basophil percentageOrdered B y: Dae Osman on 02-11-2022 Chloride [Moles/Vol] 107 mmol/L 98-107 [facility] Glucose [Mass/Vol] 96 mg/dL 74-106 [facility] Potassium [Moles/Vol] 4.4 mmol/L 3.5-5.1 [facility] Sodium [Moles/Vol] 138 mmol/L 136-145 [facility] Laboratory - Chemistry and C hemistry - challengeOrdered By: Dae Osman on 02-11-2022 CO2 [Moles/Vol] 20.0 mmol/L 21.0-32.0 [facility] Urea nitrogen/Creatinine [Mass ratio] 28.1 mg/mg 10-20 [facility] No Panel InformationOrdered By: Dae Osman on 02-11-2022 Estimated GFR (MDRD) Amer 85 mL/min >60 [facility] Comment on above: GFR Calc Estimated GFR (MDRD) Non-Af Amer 70 mL/min >60 [facility] Comment on above: Non- GFR Calc Serum or plasma calcium marisela urement (mass/volume)Ordered By: Dae Osman on 02-11-2022 Calcium [Mass/Vol] 10.3 mg/dL 8.5-10.1 [facility] Serum or plasma creatinine m easurement (mass/volume)Ordered By: Dae Osman on 02-11-2022 Creatinine [Mass/Vol] 0.89 mg/dL 0.55-1.02 [facility] Comment on above: The validity of the calculated GFR & GFRAA in patients over 70 years has not been determined. Clinical correlation is essential. Serum or plasma urea nitroge n measurement (mass/volume)Ordered By: Dae Osman on 02-11-2022 Urea nitrogen [Mass/Vol] 25 mg/dL 7-18 [facility] Thin prep Papanicolaou smear with manual screeningOrdered By: Dae Osman on 02-11-2022 Thin prep Papanicolaou smear with manual screening 11 5-15 [facility] Basophil percentageOrdered B y: Dae Osman on 01-28-2022 Chloride [Moles/Vol] 105 mmol/L 98-107 [facility] Glucose [Mass/Vol] 99 mg/dL 74-106 [facility] Potassium [Moles/Vol] 4.1 mmol/L 3.5-5.1 [facility] Sodium [Moles/Vol] 136 mmol/L 136-145 [facility] Laboratory - Chemistry and C hemistry - challengeOrdered By: Dae Osman on 01-28-2022 CO2 [Moles/Vol] 25.0 mmol/L 21.0-32.0 [facility] Urea nitrogen/Creatinine [Mass ratio] 22.1 mg/mg 10- [facility] No Panel InformationOrdered By: Dae Osman on 01-28-2022 Estimated GFR (MDRD) Amer 84 mL/min >60 [facility] Comment on above: GFR Calc Estimated GFR (MDRD) Non-Af Amer 69 mL/min >60 [facility] Comment on above: Non- GFR Calc Serum or plasma calcium marisela urement (mass/volume)Ordered By: Dae Osman on 01-28-2022 Calcium [Mass/Vol] 10.4 mg/dL 8.5-10.1 [facility] Serum or plasma creatinine m easurement (mass/volume)Ordered By: Dae Osman on 01-28-2022 Creatinine [Mass/Vol] 0.90 mg/dL 0.55-1.02 [facility] Comment on above: The validity of the calculated GFR & GFRAA in patients over 70 years has not been determined. Clinical correlation is essential. Serum or plasma urea nitroge n measurement (mass/volume)Ordered By: Dae Osman on 01-28-2022 Urea nitrogen [Mass/Vol] 20 mg/dL 7-18 [facility] Thin prep Papanicolaou smear with manual screeningOrdered By: Dae Osman on 01-28-2022 Thin prep Papanicolaou smear with manual screening 6 5-15 [facility] Absolute lymphocyte countOrd ered By: Dr. Cole on 01-21-2022 Lymphocytes Auto (Unsp spec) [#/Vol] 2.00 10*3/uL 0.83-4.51 [facility] Basophil percentageOrdered B y: Dr. Cole on 01-21-2022 Basophils/100 WBC (Bld) 0.5 % 0-1 [facility] Bilirubin [Mass/Vol] 0.50 mg/dL 0.20-1.00 [facility] Comment on above: For patients on eltr ombopag therapy, use of Dimension [place] TBIL is not recommended. Chloride [Moles/Vol] 113 mmol/L 98-107 [facility] Eosinophils/100 WBC (Bld) 2.7 % 0-5 [facility] Glucose [Mass/Vol] 92 mg/dL 74-106 [facility] Neutrophils (Bld) [#/Vol] 4.9 10*3/uL 2.0-7.7 [facility] Neutrophils/100 WBC (Bld) 63.6 % 47-70 [facility] Potassium [Moles/Vol] 4.1 mmol/L 3.5-5.1 [facility] Protein [Mass/Vol] 6.5 g/dL 6.4-8.2 [facility] Sodium [Moles/Vol] 141 mmol/L 136-145 [facility] WBC (Bld) [#/Vol] 7.8 10*3/uL 4.4-11.0 [facility] Blood erythrocytes count (nu mber/volume)Ordered By: Dr. Cole on 01-21-2022 RBC (Bld) [#/Vol] 4.45 10*6/uL 4.2-5.4 [facility] Blood hemoglobin measurement (mass/volume)Ordered By: Dr. Cole on 01-21-2022 Hemoglobin (Bld) [Mass/Vol] 13.4 g/dL 12.0-15.0 [facility] Blood lymphocytes/100 leukoc ytesOrdered By: Dr. Cole on 01-21-2022 Lymphocytes/100 WBC (Bld) 25.7 % 19-41 [facility] Blood manual differential co mment interpretation (narrative result)Ordered By: Dr. Cole on 01-21-2022 Manual differential comment Nithin (Bld) [Interp] SCANNED [facility] Blood monocytes/100 leukocyt esOrdered By: Dr. Cole on 01-21-2022 Monocytes/100 WBC (Bld) 7.2 % 0-10 [facility] Blood platelet mean volumeOr dered By: Dr. Cole on 01-21-2022 Platelet mean volume (Bld) [Entitic vol] 10.3 fL 6.2-12.0 [facility] Determination of erythrocyte mean corpuscular volume (MCV)Ordered By: Dr. Cole on 01-21-2022 MCV (RBC) [Entitic vol] 88.1 fL 81-99 [facility] Hematocrit Auto (Bld) [Volum e fraction]Ordered By: Dr. Cole on 01-21-2022 Hematocrit (Bld) [Volume fraction] 39.2 % 37-47 [facility] Laboratory - Chemistry and C hemistry - challengeOrdered By: Dr. Cole on 01-21-2022 ALP [Catalytic activity/Vol] 77 U/L 45-117 [facility] ALT [Catalytic activity/Vol] 36 U/L 13-56 [facility] CO2 [Moles/Vol] 23.0 mmol/L 21.0-32.0 [facility] Globulin (S) [Mass/Vol] 3.0 g/dL 2.2-4.2 [facility] Urea nitrogen/Creatinine [Mass ratio] 26.1 mg/mg 10-20 [facility] Laboratory - Hematology and Cell countsOrdered By: Dr. Cole on 01-21-2022 Erythrocyte distribution width (RBC) [Entitic vol] 41.4 fL 35.1-43.9 [facility] Erythrocyte distribution width (RBC) [Ratio] 12.8 % 11.6-14.6 [facility] Immature granulocytes/100 WBC (Bld) 0.300 % 0.0-0.9 [facility] Comment on above: IG% - Immature Granu locytes (promyelocytes, myelocytes and metamyelocytes) > 1% indicates that a LEFT SHIFT is Present. MCH (RBC) [Entitic mass] 30.1 pg 27.0-32.0 [facility] Nucleated RBC/100 WBC (Bld) [Ratio] 0 % 0-5 [facility] MCHC Auto (RBC) [Mass/Vol]Or dered By: Dr. Cole on 01-21-2022 MCHC (RBC) [Mass/Vol] 34.2 g/dL 32-36 [facility] No Panel InformationOrdered By: Dr. Cole on 01-21-2022 Estimated Creatinine Clearance Calc 80.01 ml/min [facility] Estimated GFR (MDRD) Amer 90 mL/min >60 [facility] Comment on above: GFR Calc Estimated GFR (MDRD) Non-Af Amer 75 mL/min >60 [facility] Comment on above: Non- GFR Calc Platelets bldOrdered By: Dr. Cole on 01-21-2022 Platelets (Bld) [#/Vol] 229 10*3/uL 150-450 [facility] Serum or plasma albumin marisela urement (mass/volume)Ordered By: Dr. Cole on 01-21-2022 Albumin [Mass/Vol] 3.5 g/dL 3.2-5.0 [facility] Serum or plasma albumin/glob ulin mass ratioOrdered By: Dr. Cole on 01-21-2022 Albumin/Globulin [Mass ratio] 1.2 {ratio} 0.9-2.4 [facility] Serum or plasma calcium marisela urement (mass/volume)Ordered By: Dr. Cole on 01-21-2022 Calcium [Mass/Vol] 9.6 mg/dL 8.5-10.1 [facility] Serum or plasma creatinine m easurement (mass/volume)Ordered By: Dr. Cole on 01-21-2022 Creatinine [Mass/Vol] 0.84 mg/dL 0.55-1.02 [facility] Comment on above: The validity of the calculated GFR & GFRAA in patients over 70 years has not been determined. Clinical correlation is essential. Serum or plasma urea nitroge n measurement (mass/volume)Ordered By: Dr. Cole on 01-21-2022 Urea nitrogen [Mass/Vol] 22 mg/dL 7-18 [facility] Thin prep Papanicolaou smear with manual screeningOrdered By: Dr. Cole on 01-21-2022 Thin prep Papanicolaou smear with manual screening 17 U/L 15-37 [facility] Thin prep Papanicolaou smear with manual screening 5 5-15 [facility] Absolute lymphocyte counton 01-19-2022 Lymphocytes Auto (Unsp spec) [#/Vol] 1.88 10*3/uL 0.83-4.51 [facility] Work Phone: Basophil percentageOrdered B y: Samir Mathews on 01-19-2022 Lactate [Moles/Vol] 1.6 mmol/L 0.4-2.0 [facility] Basophil percentageon 2021 Basophils/100 WBC (Bld) 0.4 % 0-1 [facility] Work Phone: Bilirubin [Mass/Vol] 0.40 mg/dL 0.20-1.00 [facility] Work Phone: Comment on above: For patients on eltr ombopag therapy, use of Dimension [place] TBIL is not recommended. Chloride [Moles/Vol] 106 mmol/L 98-107 [facility] Work Phone: Eosinophils/100 WBC (Bld) 3.7 % 0-5 [facility] Work Phone: Glucose [Mass/Vol] 116 mg/dL 74-106 [facility] Work Phone: Comment on above: Fasting Glucose resu lt from 100 to 125 mg/dL suggests IMPAIRED HOMEOSTASIS per A.D.A. criteria. Neutrophils (Bld) [#/Vol] 4.2 10*3/uL 2.0-7.7 [facility] Work Phone: Neutrophils/100 WBC (Bld) 59.7 % 47-70 [facility] Work Phone: Potassium [Moles/Vol] 4.2 mmol/L 3.5-5.1 [place] [facility] Work Phone: Protein [Mass/Vol] 7.5 g/dL 6.4-8.2 [facility] Work Phone: Sodium [Moles/Vol] 134 mmol/L 136-145 [facility] Work Phone: WBC (Bld) [#/Vol] 7.0 10*3/uL 4.4-11.0 [facility] Work Phone: Blood erythrocytes count (nu mber/volume)on 01-19-2022 RBC (Bld) [#/Vol] 5.45 10*6/uL 4.2-5.4 [facility] Work [facility]: Blood hemoglobin measurement (mass/volume)on 01-19-2022 Hemoglobin (Bld) [Mass/Vol] 16.2 g/dL 12.0-15.0 [facility] Work Phone: Blood lymphocytes/100 leukoc yteson 01-19-2022 Lymphocytes/100 WBC (Bld) 26.9 % 19-41 [facility] Work Phone: Blood monocytes/100 leukocyt eson 01-19-2022 Monocytes/100 WBC (Bld) 8.9 % 0-10 [facility] Work Phone: Blood platelet mean volumeon 01-19-2022 Platelet mean volume (Bld) [Entitic vol] 11.2 fL 6.2-12.0 [facility] Work Phone: Determination of erythrocyte mean corpuscular volume (MCV)on 01-19-2022 MCV (RBC) [Entitic vol] 89.4 fL 81-99 [facility] Work Phone: Direct bilirubinOrdered By: Samir Mathews on 01-19-2022 Bilirubin.direct [Mass/Vol] 0.15 mg/dL 0.00-0.30 [facility] HCO3 (BldA) [Moles/Vol]Order ed By: Dr. Beatty on 01-19-2022 HCO3 (Bld) [Moles/Vol] 16 mmol/L 22- [facility] Hematocrit Auto (Bld) [Volum e fraction]on 01-19-2022 Hematocrit (Bld) [Volume fraction] 48.7 % 37-47 [facility] Work Phone: Influenza virus A and B and SARS-CoV-2 (COVID-19) Ag panel - Upper respiratory specimOrdered By: Samir Mathews on 01-19-2022 SARS-CoV-2 (COVID-19) RNA DAREK+probe Ql (Resp) [facility] Laboratory - Chemistry and C hemistry - challengeOrdered By: Dr. Beatty on 01-19-2022 CO2 [Moles/Vol] 17 mmol/L 23-33 [facility] Laboratory - Chemistry and C hemistry - challengeon 01-19-2022 ALP [Catalytic activity/Vol] 97 U/L 45-117 [facility] Work Phone: ALT [Catalytic activity/Vol] 60 U/L 13-56 [facility] Work Phone: CO2 [Moles/Vol] 16.0 mmol/L 21.0-32.0 [facility] Work Phone: Globulin (S) [Mass/Vol] 3.4 g/dL 2.2-4.2 [facility] Work Phone: Urea nitrogen/Creatinine [Mass ratio] 31.9 mg/mg 10- [facility] Work Phone: Laboratory - Chemistry and C hemistry - challengeOrdered By: Samir Mathews on 01-19-2022 Lipase [Catalytic activity/Vol] 106 U/L 73-393 [facility] Magnesium [Mass/Vol] 2.4 mg/dL 1.6-2.6 [facility] Laboratory - Hematology and Cell countson 01-19-2022 Erythrocyte distribution width (RBC) [Entitic vol] 42.5 fL 35.1-43.9 [facility] Work Phone: Erythrocyte distribution width (RBC) [Ratio] 13.0 % 11.6-14.6 [facility] Work Phone: Immature granulocytes/100 WBC (Bld) 0.400 % 0.0-0.9 [facility] Work Phone: Comment on above: IG% - Immature Granu locytes (promyelocytes, myelocytes and metamyelocytes) > 1% indicates that a LEFT SHIFT is Present. MCH (RBC) [Entitic mass] 29.7 pg 27.0-32.0 [facility] Work Phone: Nucleated RBC/100 WBC (Bld) [Ratio] 0 % 0-5 [facility] Work Phone: MCHC Auto (RBC) [Mass/Vol]on 01-19-2022 MCHC (RBC) [Mass/Vol] 33.3 g/dL 32-36 [facility] Work Phone: No Panel InformationOrdered By: Dr. Beatty on 01-19-2022 Bed Mix Venous Bld PCO2 at Pat Temp 30.1 mmHg 41-51 [facility] Blood Gas Specimen Type REJI [facility] Oxygen Delivery Device Room Air [facility] Venous Blood Base Excess -10 mmol/L -1.0-3.5 [facility] No Panel Informationon 01-19 Estimated Creatinine Clearance Calc 31.55 ml/min [facility] Work Phone: Estimated GFR (MDRD) Amer 31 mL/min >60 [facility] Work Phone: Comment on above: GFR Calc Estimated GFR (MDRD) Non-Af Amer 26 mL/min >60 [facility] Work Phone: Comment on above: Non- GFR Calc PO2 venousOrdered By: Dr. Luis reddy on 01-19-2022 Oxygen (BldV) [Partial pressure] 60 mm[Hg] 25-40 [facility] Platelets bldon 01-19-2022 Platelets (Bld) [#/Vol] 289 10*3/uL 150-450 [facility] Work Phone: Serum or plasma albumin marisela urement (mass/volume)on 01-19-2022 Albumin [Mass/Vol] 4.1 g/dL 3.2-5.0 [facility] Work Phone: Serum or plasma calcium marisela urement (mass/volume)on 01-19-2022 Calcium [Mass/Vol] 10.0 mg/dL 8.5-10.1 [facility] Work Phone: Serum or plasma creatinine m easurement (mass/volume)on 01-19-2022 Creatinine [Mass/Vol] 2.13 mg/dL 0.55-1.02 [facility] Work Phone: Comment on above: The validity of the calculated GFR & GFRAA in patients over 70 years has not been determined. Clinical correlation is essential. Serum or plasma urea nitroge n measurement (mass/volume)on 01-19-2022 Urea nitrogen [Mass/Vol] 68 mg/dL 7-18 [facility] Work Phone: Thin prep Papanicolaou smear with manual screeningon 01-19-2022 Thin prep Papanicolaou smear with manual screening 26 U/L 15-37 [facility] Work Phone: Thin prep Papanicolaou smear with manual screening 12 5-15 [facility] Work Phone: Vital signsOrdered By: Dr. Maikel green on 01-19-2022 Oxygen saturation in Blood 89 % 50-70 [facility] pH measurementOrdered By: Dr Ashutosh Beatty on 01-19-2022 pH (Unsp spec) 7.33 [pH] 7.32-7.42 [facility] Laboratory - Microbiology an d Antimicrobial susceptibilityOrdered By: Dae Osman on 12-18-2021 S. pyogenes Ag Ql (Throat) [facility] COVID-19 virus antigen assay Ordered By: Dr. Horn on 12-15-2021 SARS-CoV-2 (COVID-19) Ag IA.rapid Ql (Resp) [facility] Absolute lymphocyte countOrd ered By: HEALTH ASSESSMENT on 12-10-2021 Lymphocytes Auto (Unsp spec) [#/Vol] 2.08 10*3/uL 0.83-4.51 [facility] Absolute reticulocyte countO rdered By: HEALTH ASSESSMENT on 12-10-2021 Reticulocytes (Bld) [#/Vol] 0.00 10*3/uL 0-5 [facility] Basophil percentageOrdered B y: HEALTH ASSESSMENT on 12-10-2021 Basophil percentage 3.5 mg/dL 2.5-4.9 [facility] Bilirubin [Mass/Vol] 0.50 mg/dL 0.20-1.00 [facility] Comment on above: For patients on eltr ombopag therapy, use of Dimension [place] TBIL is not recommended. Chloride [Moles/Vol] 106 mmol/L 98-107 [facility] Cholesterol [Mass/Vol] 243 mg/dL <200 [facility] Comment on above: <200 mg/dL Desirable 200-240 mg/dL Borderline >240 mg/dL High Risk Glucose [Mass/Vol] 106 mg/dL 74-106 [facility] Comment on above: Fasting Glucose resu lt from 100 to 125 mg/dL suggests IMPAIRED HOMEOSTASIS per A.D.A. criteria. Neutrophils (Bld) [#/Vol] 3.0 10*3/uL 2.0-7.7 [facility] Potassium [Moles/Vol] 4.1 mmol/L 3.5-5.1 [facility] Protein [Mass/Vol] 7.4 g/dL 6.4-8.2 [facility] Sodium [Moles/Vol] 139 mmol/L 136-145 [facility] Triglyceride [Mass/Vol] 240 mg/dL <199 [facility] Comment on above: The drugs N-Acetylcy steine and Metamizole may falsely depress this assay.Previous reported result: mg/dLEdited by: AUTOINS on 12/10/21:1328 AMENDED REPORT 12/10/21 1328 TRIG previously reported as: mg/dL The drugs N-Acetylcysteine and Metamizole may falsely depress this assay.Serum Triglycerides Reference Interval Normal <150 mg/dL Borderline high 150 - 199 mg/dL High 200 - 499 mg/dL Very High > or = 500 mg/dL WBC (Bld) [#/Vol] 5.9 10*3/uL 4.4-11.0 [facility] Basophil percentageOrdered B y: Dae Osman on 12-10-2021 Cholesterol [Mass/Vol] 255 mg/dL <200 [facility] Comment on above: <200 mg/dL Desirable 200-240 mg/dL Borderline >240 mg/dL High Risk Triglyceride [Mass/Vol] 244 mg/dL <199 [facility] Comment on above: The drugs N-Acetylcy steine and Metamizole may falsely depress this assay.Serum Triglycerides Reference Interval Normal <150 mg/dL Borderline high 150 - 199 mg/dL High 200 - 499 mg/dL Very High > or = 500 mg/dL Bilirubin Test strip Ql (U)O rdered By: HEALTH ASSESSMENT on 12-10-2021 Bilirubin Ql (U) Negative Negative [facility] Blood erythrocytes count (nu mber/volume)Ordered By: HEALTH ASSESSMENT on 12-10-2021 RBC (Bld) [#/Vol] 5.09 10*6/uL 4.2-5.4 [facility] Blood hemoglobin measurement (mass/volume)Ordered By: HEALTH ASSESSMENT on 12-10-2021 Hemoglobin (Bld) [Mass/Vol] 15.0 g/dL 12.0-15.0 [facility] Blood platelet mean volumeOr dered By: HEALTH ASSESSMENT on 12-10-2021 Platelet mean volume (Bld) [Entitic vol] 9.9 fL 6.2-12.0 [facility] Determination of erythrocyte mean corpuscular volume (MCV)Ordered By: HEALTH ASSESSMENT on 12-10-2021 MCV (RBC) [Entitic vol] 90.2 fL 81-99 [facility] Direct bilirubinOrdered By: HEALTH ASSESSMENT on 12-10-2021 Bilirubin.direct [Mass/Vol] 0.12 mg/dL 0.00-0.30 [facility] Hematocrit Auto (Bld) [Volum e fraction]Ordered By: HEALTH ASSESSMENT on 12-10-2021 Hematocrit (Bld) [Volume fraction] 45.9 % 37-47 [facility] Ketones Test strip Ql (U)Ord ered By: HEALTH ASSESSMENT on 12-10-2021 Ketones Ql (U) Negative Negative [facility] Laboratory - Chemistry and C hemistry - challengeOrdered By: HEALTH ASSESSMENT on 12-10-2021 ALP [Catalytic activity/Vol] 107 U/L 45-117 [facility] ALT [Catalytic activity/Vol] 79 U/L 13-56 [facility] Cholesterol.total/Olivia sterol in HDL [Mass ratio] 4.90 {ratio} [facility] CO2 [Moles/Vol] 23.0 mmol/L 21.0-32.0 [facility] Globulin (S) [Mass/Vol] 3.5 g/dL 2.2-4.2 [facility] Urea nitrogen/Creatinine [Mass ratio] 30.2 mg/mg 10-20 [facility] Laboratory - Hematology and Cell countsOrdered By: HEALTH ASSESSMENT on 12-10-2021 Erythrocyte distribution width (RBC) [Entitic vol] 42.3 fL 35.1-43.9 [facility] Erythrocyte distribution width (RBC) [Ratio] 12.8 % 11.6-14.6 [facility] MCH (RBC) [Entitic mass] 29.5 pg 27.0-32.0 [facility] Nucleated RBC/100 WBC (Bld) [Ratio] 0 % 0-5 [facility] MCHC Auto (RBC) [Mass/Vol]Or dered By: HEALTH ASSESSMENT on 12-10-2021 MCHC (RBC) [Mass/Vol] 32.7 g/dL 32-36 [facility] Nitrite Test strip Ql (U)Ord ered By: HEALTH ASSESSMENT on 12-10-2021 Nitrite Ql (U) Negative Negative [facility] No Panel InformationOrdered By: HEALTH ASSESSMENT on 12-10-2021 Estimated GFR (MDRD) Amer 88 mL/min >60 [facility] Comment on above: GFR Calc Estimated GFR (MDRD) Non-Af Amer 73 mL/min >60 [facility] Comment on above: Non- GFR Calc No Panel InformationOrdered By: Dae Osman on 12-10-2021 Thyroid Stimulating Hormone (TSH) 1.77 uIU/mL 0.358-3.74 [facility] Platelets bldOrdered By: HEA LTH ASSESSMENT on 12-10-2021 Platelets (Bld) [#/Vol] 269 10*3/uL 150-450 [facility] Protein Test strip Ql (U)Ord ered By: HEALTH ASSESSMENT on 12-10-2021 Protein Ql (U) Negative Negative [facility] Segmented neutrophils/100 WB C Auto (Bld)Ordered By: HEALTH ASSESSMENT on 12-10-2021 Segmented neutrophils/100 WBC (Bld) 51.0 % 47-70 [facility] Serum or plasma albumin marisela urement (mass/volume)Ordered By: HEALTH ASSESSMENT on 12-10-2021 Albumin [Mass/Vol] 3.9 g/dL 3.2-5.0 [facility] Serum or plasma albumin/glob ulin mass ratioOrdered By: HEALTH ASSESSMENT on 12-10-2021 Albumin/Globulin [Mass ratio] 1.1 {ratio} 0.9-2.4 [facility] Serum or plasma calcium marisela urement (mass/volume)Ordered By: HEALTH ASSESSMENT on 12-10-2021 Calcium [Mass/Vol] 10.0 mg/dL 8.5-10.1 [facility] Serum or plasma cholesterol in HDL measurement (mass/volume)Ordered By: HEALTH ASSESSMENT on 12-10-2021 Cholesterol in HDL [Mass/Vol] 50 mg/dL >40 [facility] Comment on above: The drugs N-Acetylcy steine and Metamizole may falsely depress this assay.Previous reported result: mg/dLEdited by: YURIDIA on 12/10/21:1328 AMENDED REPORT 12/10/21 1328 HDL previously reported as: mg/dL The drugs N-Acetylcysteine and Metamizole may falsely depress this assay. Reference Range HDL <40 mg/dL Low HDL Cholesterol HDL >or= 60 mg/dL High HDL Cholesterol Serum or plasma cholesterol in HDL measurement (mass/volume)Ordered By: Dae Osman on 12-10-2021 Cholesterol in HDL [Mass/Vol] 52 mg/dL >40 [facility] Comment on above: The drugs N-Acetylcy steine and Metamizole may falsely depress this assay. Reference Range HDL <40 mg/dL Low HDL Cholesterol HDL >or= 60 mg/dL High HDL Cholesterol Serum or plasma cholesterol in VLDL measurement (mass/volume)Ordered By: HEALTH ASSESSMENT on 12-10-2021 Cholesterol in VLDL [Mass/Vol] 48 mg/dL 5-40 [facility] Serum or plasma cholesterol in VLDL measurement (mass/volume)Ordered By: Dae Osman on 12-10-2021 Cholesterol in VLDL [Mass/Vol] 49 mg/dL 5-40 [facility] Serum or plasma creatinine m easurement (mass/volume)Ordered By: HEALTH ASSESSMENT on 12-10-2021 Creatinine [Mass/Vol] 0.86 mg/dL 0.55-1.02 [facility] Comment on above: The validity of the calculated GFR & GFRAA in patients over 70 years has not been determined. Clinical correlation is essential. Serum or plasma low density lipoprotein (LDL) cholesterol measurement (mass/volume)Ordered By: HEALTH ASSESSMENT on 12-10-2021 Cholesterol in LDL [Mass/Vol] 145 mg/dL 0-130 [facility] Serum or plasma low density lipoprotein (LDL) cholesterol measurement (mass/volume)Ordered By: Dae Osman on 12-10-2021 Cholesterol in LDL [Mass/Vol] 154 mg/dL 0-130 [facility] Serum or plasma urea nitroge n measurement (mass/volume)Ordered By: HEALTH ASSESSMENT on 12-10-2021 Urea nitrogen [Mass/Vol] 26 mg/dL 7-18 [facility] Serum or plasma uric acid me asurement (mass/volume)Ordered By: [facility] ASSESSMENT on 12-10-2021 Urate [Mass/Vol] 6.6 mg/dL 2.6-6.0 [facility] Comment on above: The drugs N-Acetylcy steine and Metamizole may falsely depress this assay.Previous reported result: mg/dLEdited by: AUTOINS on 12/10/21:1328 AMENDED REPORT 12/10/21 1328 URIC previously reported as: mg/dL The drugs N-Acetylcysteine and Metamizole may falsely depress this assay. Thin prep Papanicolaou smear with manual screeningOrdered By: HEALTH ASSESSMENT on 12-10-2021 Thin prep Papanicolaou smear with manual screening 39 U/L 15-37 [facility] Thin prep Papanicolaou smear with manual screening 10 5-15 [facility] Thin prep Papanicolaou smear with manual screening 196 U/L 84-246 [facility] Urine blood detectionOrdered By: HEALTH ASSESSMENT on 12-10-2021 RBC Ql (U) Negative Negative [facility] Urine clarityOrdered By: HEA [facility] ASSESSMENT on 12-10-2021 Clarity (U) Clear Clear [facility] Urine color determinationOrd ered By: HEALTH ASSESSMENT on 12-10-2021 Color (U) Yellow Yellow [facility] Urine glucose detectionOrder ed By: HEALTH ASSESSMENT on 12-10-2021 Glucose Ql (U) Normal mg/dl Normal [facility] Urine leukocyte esterase det ection by dipstickOrdered By: HEALTH ASSESSMENT on 12-10-2021 Leukocyte esterase Test strip Ql (U) Negative Negative [facility] Urine pHOrdered By: HEALTH A SSESSMENT on 12-10-2021 pH (U) 6.0 [pH] 5.0 - 8.0 [facility] Urine specific gravity measu rementOrdered By: HEALTH ASSESSMENT on 12-10-2021 Specific gravity (U) [Rel density] 1.025 1.002-1.03 0 [facility] Urobilinogen Auto test strip Ql (U)Ordered By: HEALTH ASSESSMENT on 12-10-2021 Urobilinogen Ql (U) Normal mg/dl Normal [facility] Basophil percentageon 2021 Chloride [Moles/Vol] 105 mmol/L 98-107 [facility] Work Phone: Glucose [Mass/Vol] 102 mg/dL 74-106 [facility] Work Phone: Comment on above: Fasting Glucose resu lt from 100 to 125 mg/dL suggests IMPAIRED HOMEOSTASIS per A.D.A. criteria. Potassium [Moles/Vol] 4.5 mmol/L 3.5-5.1 [facility] Work Phone: Sodium [Moles/Vol] 137 mmol/L 136-145 [facility] Work Phone: Laboratory - Chemistry and C hemistry - challengeon 05-29-2021 CO2 [Moles/Vol] 26.0 mmol/L 21.0-32.0 [facility] Work Phone: Urea nitrogen/Creatinine [Mass ratio] 29.0 mg/mg 10-20 [facility] Work Phone: No Panel Informationon 05-29 Estimated GFR (MDRD) Amer 97 mL/min >60 [facility] Work Phone: Comment on above: GFR Calc Estimated GFR (MDRD) Non-Af Amer 80 mL/min >60 [facility] Work Phone: Comment on above: Non- GFR Calc Serum or plasma calcium marisela urement (mass/volume)on 05-29-2021 Calcium [Mass/Vol] 10.1 mg/dL 8.5-10.1 oste r [facility] Work Phone: Serum or plasma creatinine m easurement (mass/volume)on 05-29-2021 Creatinine [Mass/Vol] 0.79 mg/dL 0.55-1.02 [facility] Work Phone: Comment on above: The validity of the calculated GFR & GFRAA in patients over 70 years has not been determined. Clinical correlation is essential. Serum or plasma urea nitroge n measurement (mass/volume)on 05-29-2021 Urea nitrogen [Mass/Vol] 23 mg/dL 7-18 [facility] Work Phone: Thin prep Papanicolaou smear with manual screeningon 05-29-2021 Thin prep Papanicolaou smear with manual screening 6 5-15 [facility] Work Phone: Laboratory - Microbiology an d Antimicrobial susceptibilityon 04-01-2021 SARS-CoV-2 (COVID-19) RNA DAREK+probe Ql (Unsp spec) Not detected [facility] Work Phone: Lipid ProfileOrdered By: Burak tem Retail Shift Supervisor on 01-19-2018 Cholesterol in HDL mass conc 46 mg/dL Normal [facility] Work Phone: Comment on above: The drugs N-Acetylcy steine and Metamizole may falselydepress this assay. Reference Range HDL <40 mg/dL Low HDL Cholesterol HDL >or= 60 mg/dL High HDL Cholesterol Cholesterol in LDL mass conc 97 mg/dL Normal 0-130 [facility] Work Phone: Cholesterol in VLDL mass conc 62 mg/dL Abnormal 5-40 [facility] Work Phone: Cholesterol mass conc 205 mg/dL Abnormal Com [facility] Work Phone: Comment on above: <200 mg/dL Desirable 200-240 mg/dL Borderline >240 mg/dL High Risk Triglyceride mass conc 312 mg/dL Abnormal [facility] Work Phone: Comment on above: The drugs N-Acetylcy steine and Metamizole may falselydepress this assay.Serum Triglycerides Reference Interval Normal <150 mg/dL Borderline high 150 - 199 mg/dL High 200 - 499 mg/dL Very High > or = 500 mg/dL Uric AcidOrdered By: Abrasive Sawyer on 01-19-2018 Urate mass conc 5.8 mg/dL Normal 2.6-6.0 [facility]prehen [facility] Work Phone: Comment on above: The drugs N-Acetylcy steine and Metamizole may falselydepress this assay. CBC, EmployeeOrdered By: Burak tem Retail Shift Supervisor on 10-07-2017 Absolute Neut 4.2 {X10_3/uL} Normal 2.0-7.7 [facility] Work Phone: Basophils/100 WBC Auto (Bld) 0.4 % Normal 0-1 [facility] Work Phone: Eosinophils/100 WBC Auto (Bld) 2.7 % Normal 0-5 [facility] Work Phone: Erythrocyte distribution width Auto Ratio (RBC) 12.6 % Normal 11.6-14.6 [facility] Work Phone: Hematocrit Auto Volume Fraction (Bld) 45.3 % Normal 37-47 [facility] Work Phone: Hemoglobin mass conc (Bld) 15.2 g/dL Abnormal 12.0-15.0 [facility] Work Phone: Lymphocytes Auto #/vol (Bld) 2.40 {X10_3/ul} Normal 0.83-4.51 [facility] Work Phone: Lymphocytes/100 WBC Auto (Bld) 32.4 % Normal 19-41 [facility] Work Phone: MCH Auto Entitic mass (RBC) 30.2 pg Normal 27.0-32.0 [facility] Work Phone: MCHC Auto mass conc (RBC) 33.6 {g/gl} Normal 32-36 [facility] Work Phone: MCV Auto Entitic volume (RBC) 90.1 fL Normal 81-99 [facility] Work Phone: Monocytes/100 WBC Auto (Bld) 7.7 % Normal 0-10 [facility] Work Phone: Neutrophils/100 WBC Auto (Bld) 56.7 % Normal 47-70 [facility] Work Phone: Platelet mean volume Auto Entitic volume (Bld) 10.4 fL Normal 6.2-12.0 [facility] Work Phone: Platelets Auto #/vol (Bld) 251 10*3/uL Normal 150-450 [facility] Work Phone: RBC Auto #/vol (Bld) 5.03 {M/mm3} Normal 4.2-5.4 [facility] Work Phone: RDW SD 41.0 fL Normal 35.1-43.9 [facility] Work Phone: WBC Auto #/vol (Bld) 7.4 10*3/uL Normal 4.4-11.0 [facility] Work Phone: Employee ProfileOrdered By: Abrasive Sawyer on 10-07-2017 Albumin mass conc 3.5 g/dL Normal 3.2-5.0 [facility] Work Phone: Albumin/Globulin mass ratio 0.9 {RATIO} Normal 0.9-2.4 [facility] Work Phone: ALP enzyme act/vol 86 U/L Normal 45-117 [facility] Work Phone: ALT enzyme act/vol 34 U/L Normal 13-56 [facility] Work Phone: AST enzyme act/vol 23 U/L Normal 15-37 [facility] Work Phone: Bilirubin mass conc 0.50 mg/dL Normal 0.20-1.00 [facility] Work Phone: Bilirubin.direct mass conc 0.10 mg/dL Normal 0.00-0.30 [facility] Work Phone: Calcium mass conc 8.7 mg/dL Normal 8.5-10.1 [facility] Work Phone: Chloride molar conc 104 mmol/L Normal 98-107 [facility] Work Phone: CHOL:HDL 4.20 1 Normal [facility] Work Phone: Cholesterol in HDL mass conc 43 mg/dL Normal [facility] Work Phone: Comment on above: The drugs N-Acetylcy steine and Metamizole may falselydepress this assay. Reference Range HDL <40 mg/dL Low HDL Cholesterol HDL >or= 60 mg/dL High HDL Cholesterol Cholesterol in LDL mass conc 70 mg/dL Normal 0-130 [facility] Work Phone: Cholesterol in VLDL mass conc 66 mg/dL Abnormal 5-40 [facility] Work Phone: Cholesterol mass conc 179 mg/dL Normal [facility] Work Phone: Comment on above: <200 mg/dL Desirable 200-240 mg/dL Borderline >240 mg/dL High Risk CO2 molar conc 25.0 mmol/L Normal 21.0-32.0 [facility] Work Phone: Creatinine mass conc 0.87 mg/dL Normal 0.55-1.02 [facility] Work Phone: Comment on above: The validity of the calculated GFR AND GFRAA in patients over70 years has not been determined. Clinical correlation isessential. EST GFR - AA 89 mL/min Normal [facility] Work Phone: Comment on above: GFR Calc GAP 9 1 Normal 5-15 [facility] Work Phone: GFR/1.73 sq M predicted among non-blacks MDRD vol rate/area (S/P/Bld) 73 mL/min/{1.73_m2} Normal Comp rehens[facility] Work Phone: Comment on above: Non- GFR Calc Globulin Calculated mass conc (S) 3.7 g/dL Normal 2.2-4.2 [facility] Work Phone: Glucose mass conc 93 mg/dL Normal 74-106 [facility] Work Phone: Comment on above: Please note revised GLUCOSE reference range [id number]/2018. LDH 167 U/L Normal 84-246 [facility] Work Phone: Phosphate mass conc 3.0 mg/dL Normal 2.5-4.9 [facility]pr [facility] Work Phone: Potassium molar conc 4.4 mmol/L Normal 3.5-5.1 [facility] Work Phone: Protein mass conc 7.2 g/dL Normal 6.4-8.2 [facility] Work Phone: Sodium molar conc 138 mmol/L Normal 136-145 [facility] Work Phone: Triglyceride mass conc 329 mg/dL Abnormal [facility] Work Phone: Comment on above: The drugs N-Acetylcy steine and Metamizole may falselydepress this assay.Serum Triglycerides Reference Interval Normal <150 mg/dL Borderline high 150 - 199 mg/dL High 200 - 499 mg/dL Very High > or = 500 mg/dL Urea nitrogen mass conc 16 mg/dL Normal 7-18 [facility] Work Phone: Urea nitrogen mass conc (Bld) 18.4 {RATIO} Normal 10-20 [facility] Work Phone: URIC 7.2 mg/dL Abnormal 2.6-6.0 [facility] Work Phone: Comment on above: The drugs N-Acetylcy steine and Metamizole may falselydepress this assay. Nicotine Urine Drug ScreenOr dered By: Abrasive Sawyer on 10-07-2017 COT DRG SCREEN Negative Normal [facility] Work Phone: Comment on above: Cotinine is the firs t-stage metabolite of Nicotine. TO BE CONFIRMED Normal [facility] Work Phone: Comment on above: CONFIRMATORY TESTING FOR ALL POSITIVE URINE DRUG [...] result, particularly whenpreliminary positive results are used. Urinalysis, EmployeeOrdered By: Abrasive Sawyer on 10-07-2017 CLARITY Clear Normal [facility] Work Phone: COLOR Yellow Normal [facility] Work Phone: LEUK ESTERASE Negative Normal [facility] Work Phone: pH UR 5.0 1 Normal 5.0 - 8.0 [facility] Work Phone: SP.GR. DIPSTX 1.020 1 Normal 1.002-1.03 0 [facility] Work Phone: UROBILI Normal Normal [facility] Work Phone: CBC W/Diff, AutomatedOrdered By: Abrasive Sawyer on 03-16-2017 Absolute Neut 6.0 {X10_3/uL} Normal 2.0-7.7 [facility] Work Phone: Basophils/100 WBC Auto (Bld) 0.2 % Normal 0-1 [facility] Work Phone: Eosinophils/100 WBC Auto (Bld) 1.5 % Normal 0-5 [facility] Work Phone: Erythrocyte distribution width Auto Ratio (RBC) 12.6 % Normal 11.6-14.6 [facility] Work Phone: Hematocrit Auto Volume Fraction (Bld) 44.5 % Normal 37-47 [facility] Work Phone: Hemoglobin mass conc (Bld) 15.1 g/dL Abnormal 12.0-15.0 [facility] Work Phone: IM GRAN % 0.100 % Normal 0.0-0.9 [facility] Work Phone: Comment on above: IG% - Immature Granu locytes (promyelocytes, myelocytes andmetamyelocytes) > 1% indicates that a LEFT SHIFT is Present. Lymphocytes Auto #/vol (Bld) 2.41 {X10_3/ul} Normal 0.83-4.51 [facility] Work Phone: Lymphocytes/100 WBC Auto (Bld) 26.4 % Normal 19-41 [facility] Work Phone: MCH Auto Entitic mass (RBC) 30.5 pg Normal 27.0-32.0 [facility] Work Phone: MCHC Auto mass conc (RBC) 33.9 {g/gl} Normal 32-36 [facility] Work Phone: MCV Auto Entitic volume (RBC) 89.9 fL Normal 81-99 [facility] Work Phone: Monocytes/100 WBC Auto (Bld) 6.1 % Normal 0-10 [facility] Work Phone: Neutrophils/100 WBC Auto (Bld) 65.7 % Normal 47-70 [facility] Work Phone: Platelet mean volume Auto Entitic volume (Bld) 10.2 fL Normal 6.2-12.0 [facility] Work Phone: Platelets Auto #/vol (Bld) 255 10*3/uL Normal 150-450 [facility] Work Phone: RBC Auto #/vol (Bld) 4.95 {M/mm3} Normal 4.2-5.4 [facility] Work Phone: RDW SD 41.0 fL Normal 35.1-43.9 [facility] Work Phone: WBC Auto #/vol (Bld) 9.1 10*3/uL Normal 4.4-11.0 [facility] prehens[facility] Work Phone: Comprehensive Metabolic Prof ilOrdered By: Abrasive Sawyer on 03-16-2017 Comprehensive metabolic 2000 panel 1.1 {RATIO} Normal 0.9-2.4 [facility] Work Phone: Comprehensive metabolic 2000 panel 8.7 mg/dL Normal 8.5-10.1 [facility] Work Phone: Comprehensive metabolic 2000 panel 19 U/L Normal 15-37 [facility] Work Phone: Comprehensive metabolic 2000 panel 78 U/L Normal 45-117 [facility] Work Phone: Comprehensive metabolic 2000 panel 28 U/L Normal 12-78 [facility] Work Phone: Comprehensive metabolic 2000 panel 0.60 mg/dL Normal 0.20-1.00 [facility] Work Phone: Comprehensive metabolic 2000 panel 138 mmol/L Normal 136-145 [facility] Work Phone: Comprehensive metabolic 2000 panel 4.5 mmol/L Normal 3.5-5.1 [facility] Work Phone: Comprehensive metabolic 2000 panel 105 mmol/L Normal 98-107 [facility] Work Phone: Comprehensive metabolic 2000 panel 24.0 mmol/L Normal 21.0-32.0 [facility] Work Phone: Comprehensive metabolic 2000 panel 9 1 Normal 5-15 [facility] Work Phone: Comprehensive metabolic 2000 panel 84 mg/dL Normal 70-110 [facility] Work Phone: Comprehensive metabolic 2000 panel 20 mg/dL Abnormal 7-18 [facility] Work Phone: Comprehensive metabolic 2000 panel 0.68 mg/dL Normal 0.55-1.02 [facility] Work Phone: Comment on above: The validity of the calculated GFR AND GFRAA in patients over70 years has not been determined. Clinical correlation isessential. [facility] 2000 panel 97 mL/min Normal [facility] Work Phone: Comment on above: Non- GFR Calc [facility] 2000 panel 118 mL/min Normal [facility] Work Phone: Comment on above: GFR Calc [facility] 1999 panel 29.3 {RATIO} Abnormal 10-20 [facility] Work Phone: Comprehensive metabolic 1999 panel 7.0 g/dL Normal 6.4-8.2 [facility] Work Phone: Comprehensive metabolic 1999 panel 3.7 g/dL Normal 3.4-5.0 [facility] Work Phone: Comment on above: Please note revised Albumin AND Globulin reference rangeeffective 2016. [facility] 2000 panel 3.3 g/dL Normal 2.2-4.2 [facility] Work Phone: Office Visit: Suture removal on 10-13-2016 Documentation of current medications (procedure) Done Invalid Interpretation Code [facility] Work Phone: Documentation of current medications (procedure) T Invalid Interpretation Code [facility] Work Phone: Fall risk assessment No Invalid Interpretation Code [facility] Work Phone: Tobacco smoking status UTIS Never Invalid Interpretation Code [facility] Work Phone: Tobacco use [facility] Never smoker Invalid Interpretation Code [facility] Work Phone: Office Visit: [facility] heidi moore, employer to payon 10-13-2016 Documentation of current medications (procedure) Done Invalid Interpretation Code [facility] Work Phone: Documentation of current medications (procedure) T Invalid Interpretation Code [facility] Work Phone: Fall risk assessment No Invalid Interpretation Code [facility] Work Phone: Tobacco smoking status NHIS Never Invalid Interpretation Code [facility] Work Phone: Tobacco use [facility] Never smoker Invalid Interpretation Code [facility] Work Phone: CBC, EmployeeOrdered By: Burak tem Retail Shift Supervisor on 10-06-2016 Absolute Neut 4.5 {X10_3/uL} Normal 2.0-7.7 [facility] Work Phone: Basophils/100 WBC Auto (Bld) 0.3 % Normal 0-1 [facility] Work Phone: Eosinophils/100 WBC Auto (Bld) 2.2 % Normal 0-5 [facility] Work Phone: Erythrocyte distribution width Auto Ratio (RBC) 12.8 % Normal 11.6-14.6 [facility] Work Phone: Hematocrit Auto Volume Fraction (Bld) 42.0 % Normal 37-47 [facility] Work Phone: Hemoglobin mass conc (Bld) 14.6 g/dL Normal 12.0-15.0 [facility] Work Phone: Lymphocytes Auto #/vol (Bld) 2.01 {X10_3/ul} Normal 0.83-4.51 [facility] Work Phone: Lymphocytes/100 WBC Auto (Bld) 27.8 % Normal 19-41 [facility] Work Phone: MCH Auto Entitic mass (RBC) 30.9 pg Normal 27.0-32.0 [facility] Work Phone: MCHC Auto mass conc (RBC) 34.8 {g/gl} Normal 32-36 [facility] Work Phone: MCV Auto Entitic volume (RBC) 88.8 fL Normal 81-99 [facility] Work Phone: Monocytes/100 WBC Auto (Bld) 8.0 % Normal 0-10 [facility] Work Phone: Neutrophils/100 WBC Auto (Bld) 61.6 % Normal 47-70 [facility] Work Phone: Platelet mean volume Auto Entitic volume (Bld) 10.5 fL Normal 6.2-12.0 [facility] Work Phone: Platelets Auto #/vol (Bld) 263 10*3/uL Normal 150-450 [facility] Work Phone: RBC Auto #/vol (Bld) 4.73 {M/mm3} Normal 4.2-5.4 [facility] Work Phone: RDW SD 41.4 fL Normal 35.1-43.9 [facility] Internal Medicine Work Phone: WBC Auto #/vol (Bld) 7.2 10*3/uL Normal 4.4-11.0 [facility] Internal Medicine Work Phone: Employee ProfileOrdered By: Abrasive Sawyer on 10-06-2016 Albumin mass conc 3.6 g/dL Normal 3.4-5.0 [facility] Internal Medicine Work Phone: Albumin/Globulin mass ratio 1.1 {RATIO} Normal 0.9-2.4 [facility] Internal Medicine Work Phone: ALP enzyme act/vol 91 U/L Normal 45-117 [facility] Internal Medicine Work Phone: ALT enzyme act/vol 24 U/L Normal 12-78 [facility] Internal Medicine Work Phone: AST enzyme act/vol 22 U/L Normal 15-37 [facility] Internal Medicine Work Phone: Bilirubin mass conc 0.60 mg/dL Normal 0.20-1.00 [facility] Internal Medicine Work Phone: Bilirubin.direct mass conc 0.09 mg/dL Normal 0.00-0.30 [facility] Internal Medicine Work Phone: Calcium mass conc 8.6 mg/dL Normal 8.5-10.1 [facility] Internal Medicine Work Phone: Chloride molar conc 104 mmol/L Normal 98-107 [facility] Internal Medicine Work Phone: CHOL:HDL 3.80 1 Normal [facility] Internal Medicine Work Phone: Cholesterol in HDL mass conc 52 mg/dL Normal [facility] Internal Medicine Work Phone: Comment on above: The drugs N-Acetylcy steine and Metamizole may falsely deressthis assay. Reference Range HDL <40 mg/dL Low HDL Cholesterol HDL >or= 60 mg/dL High HDL Cholesterol Cholesterol in LDL mass conc 79 mg/dL Normal 0-130 [facility] Internal Medicine Work Phone: Cholesterol in VLDL mass conc 66 mg/dL Abnormal 5-40 [facility] Internal Medicine Work Phone: Cholesterol mass conc 197 mg/dL Normal [facility] Internal Medicine Work Phone: Comment on above: <200 mg/dL Desirable 200-240 mg/dL Borderline >240 mg/dL High Risk CO2 molar conc 23.0 mmol/L Normal 21.0-32.0 [facility] Work Phone: Creatinine mass conc 0.66 mg/dL Normal 0.55-1.02 [facility] Internal Medicine Work Phone: Comment on above: The validity of the calculated GFR AND GFRAA in patients over70 years has not been determined. Clinical correlation isessential. EST GFR - AA 122 mL/min Normal [facility] Internal Medicine Work Phone: Comment on above: GFR Calc GAP 10 1 Normal 5-15 [facility] Work Phone: GFR/1.73 sq M predicted among non-blacks MDRD vol rate/area (S/P/Bld) 101 mL/min/{1.73_m2} Normal Com [facility]hensive Internal Medicine Work Phone: Comment on above: Non- GFR Calc Globulin Calculated mass conc (S) 3.2 g/dL Normal 2.3-3.5 [facility] Work Phone: Glucose mass conc 81 mg/dL Normal 70-110 [facility] Internal Medicine Work Phone: LDH 178 U/L Normal 84-246 [facility] Work Phone: Phosphate mass conc 2.4 mg/dL Abnormal 2.5-4.9 Compr ehensive Internal Medicine Work Phone: Potassium molar conc 3.9 mmol/L Normal 3.5-5.1 [facility] Internal Medicine Work Phone: Protein mass conc 6.8 g/dL Normal 6.4-8.2 [facility] Internal Medicine Work Phone: Sodium molar conc 137 mmol/L Normal 136-145 [facility] Internal Medicine Work Phone: Triglyceride mass conc 330 mg/dL Abnormal [facility] Internal Medicine Work Phone: Comment on above: The drugs N-Acetylcy steine and Metamizole may falsely deressthis assay.Serum Triglycerides Reference Interval Normal <150 mg/dL Borderline high 150 - 199 mg/dL High 200 - 499 mg/dL Very High > or = 500 mg/dL Urea nitrogen mass conc 17 mg/dL Normal 7-18 [facility] Internal Medicine Work Phone: Urea nitrogen mass conc (Bld) 25.6 {RATIO} Abnormal 10-20 [facility] Work Phone: URIC 6.0 mg/dL Normal 2.6-6.0 [facility] Work Phone: Comment on above: The drugs N-Acetylcy steine and Metamizole may falsely deressthis assay. Nicotine Urine Drug ScreenOr dered By: Abrasive Sawyer on 10-06-2016 COT DRG SCREEN Negative Normal [facility] Internal Medicine Work Phone: Comment on above: Cotinine is the firs t-stage metabolite of Nicotine. TO BE CONFIRMED Normal Comprehen [facility] Internal Medicine Work Phone: Comment on above: CONFIRMATORY TESTING FOR ALL POSITIVE URINE DRUG [...] result, particularly whenpreliminary positive results are used. Urinalysis, EmployeeOrdered By: Abrasive Sawyer on 10-06-2016 CLARITY Clear Normal [facility] Work Phone: COLOR Yellow Normal [facility] Work Phone: LEUK ESTERASE Negative Normal Comprehensi ve Internal Medicine Work Phone: pH UR 5.0 1 Normal 5.0 - 8.0 [facility] Work Phone: PROT DIPSTX 15 mg/dL Abnormal [facility] Work Phone: SP.GR. DIPSTX 1.025 1 Normal 1.002-1.03 0 [facility] Work Phone: UROBILI Normal Normal [facility] Work Phone: Microbiology: Culture, R/O S trep Aon 07-05-2016 GE use only - for [employer] import when terms are not otherwise specified . Invalid Interpretation Code [facility] Work Phone: Culture, R/O Strep AOrdered By: Abrasive Sawyer on 07-03-2016 CUSTREPA See Note Normal [facility] Work Phone: Comment on above: NAI CultureNo Group A Beta Streptococcus isolated. * This cultures intended use is to screen for Beta Streptococcus A only. All other pathogens and potential pathogens will not be screened for or reported. If a complete workup of all potential pathogens is indicated an order for a routine throat culture is required. Office Visit: UC: pharyngiti son 07-03-2016 Documentation of current medications (procedure) Done Invalid Interpretation Code [facility] Work Phone: Documentation of current medications (procedure) T Invalid Interpretation Code [facility] Work Phone: Tobacco smoking status NHIS Never Invalid Interpretation Code [facility] Work Phone: Tobacco use CPHS Never smoker Invalid Interpretation Code [facility] Work Phone: CBC, EmployeeOrdered By: Burak tem Retail Shift Supervisor on 10-03-2015 Absolute Neut 4.0 {X10_3/uL} Normal 2.0-7.7 Compreh ensive Internal Medicine Work Phone: Basophils/100 WBC Auto (Bld) 0.3 % Normal 0-1 [facility] Work Phone: Eosinophils/100 WBC Auto (Bld) 2.8 % Normal 0-5 [facility] Work Phone: Erythrocyte distribution width Auto Ratio (RBC) 12.7 % Normal 11.6-14.6 [facility] Work Phone: Hematocrit Auto Volume Fraction (Bld) 44.8 % Normal 37-47 [facility] Work Phone: Hemoglobin mass conc (Bld) 15.5 g/dL Abnormal 12.0-15.0 [facility] Work Phone: Lymphocytes Auto #/vol (Bld) 2.21 {X10_3/ul} Normal 0.83-4.51 [facility] Work Phone: Lymphocytes/100 WBC Auto (Bld) 31.5 % Normal 19-41 [facility] Internal Medicine Work Phone: MCH Auto Entitic mass (RBC) 30.9 pg Normal 27.0-32.0 [facility] Internal Medicine Work Phone: MCHC Auto mass conc (RBC) 34.6 {g/gl} Normal 32-36 [facility] Work Phone: MCV Auto Entitic volume (RBC) 89.2 fL Normal 81-99 [facility] Internal Medicine Work Phone: Monocytes/100 WBC Auto (Bld) 8.8 % Normal 0-10 [facility] Internal Medicine Work Phone: Neutrophils/100 WBC Auto (Bld) 56.3 % Normal 47-70 [facility] Internal Medicine Work Phone: Platelet mean volume Auto Entitic volume (Bld) 10.0 fL Normal 6.2-12.0 [facility] Internal Medicine Work Phone: Platelets Auto #/vol (Bld) 254 10*3/uL Normal 150-450 [facility] Internal Medicine Work Phone: RBC Auto #/vol (Bld) 5.02 {M/mm3} Normal 4.2-5.4 [facility] Work Phone: RDW SD 41.1 fL Normal 35.1-43.9 [facility] Internal Medicine Work Phone: WBC Auto #/vol (Bld) 7.0 10*3/uL Normal 4.4-11.0 [facility] prehensive Internal Medicine Work Phone: Employee ProfileOrdered By: Abrasive Sawyer on 10-03-2015 Albumin mass conc 3.7 g/dL Normal 3.4-5.0 Compreh ensive Internal Medicine Work Phone: Albumin/Globulin mass ratio 1.1 {RATIO} Normal 0.9-2.4 [facility] Internal Medicine Work Phone: ALP enzyme act/vol 98 U/L Normal 50-136 [facility] Internal Medicine Work Phone: ALT enzyme act/vol 42 U/L Normal 12-78 [facility] Internal Medicine Work Phone: AST enzyme act/vol 23 U/L Normal 15-37 [facility] Internal Medicine Work Phone: Bilirubin mass conc 0.40 mg/dL Normal 0.20-1.00 [facility] Internal Medicine Work Phone: Bilirubin.direct mass conc 0.10 mg/dL Normal 0.00-0.30 [facility] Internal Medicine Work Phone: Calcium mass conc 8.8 mg/dL Normal 8.5-10.[address] [facility] Internal Medicine Work Phone: Chloride molar conc 102 mmol/L Normal 98-107 [facility] Internal Medicine Work Phone: CHOL:HDL 5.00 1 Normal [facility] Internal Medicine Work Phone: Cholesterol in HDL mass conc 44 mg/dL Normal [facility] Internal Medicine Work Phone: Comment on above: The drugs N-Acetylcy steine and Metamizole may falsely deressthis assay. Reference Range HDL <40 mg/dL Low HDL Cholesterol HDL >or= 60 mg/dL High HDL Cholesterol Cholesterol in LDL mass conc Test not performed Normal 0-130 [facility] Internal Medicine Work Phone: Cholesterol in VLDL mass conc Test not performed Normal 5-40 [facility] Internal Medicine Work Phone: Cholesterol mass conc 218 mg/dL Abnormal [facility] Internal Medicine Work Phone: Comment on above: <200 mg/dL Desirable 200-240 mg/dL Borderline >240 mg/dL High Risk CO2 molar conc 23.0 mmol/L Normal 21.0-32.0 [facility] [[email or web address]] Internal Medicine Work Phone: Creatinine mass conc 0.79 mg/dL Normal 0.55-1.20 [facility] Internal Medicine Work Phone: Comment on above: The validity of the calculated GFR AND GFRAA in patients over70 years has not been determined. Clinical correlation isessential. EST GFR - AA 100 mL/min Normal [facility] Internal Medicine Work Phone: Comment on above: GFR Calc GAP 10 1 Normal 5-15 [facility] Work Phone: GFR/1.73 sq M predicted among non-blacks MDRD vol rate/area (S/P/Bld) 83 mL/min/{1.73_m2} Normal [facility] Internal Medicine Work Phone: Comment on above: Non- GFR Calc Globulin Calculated mass conc (S) 3.4 g/dL Normal 2.3-3.5 [facility] Work Phone: Glucose mass conc 91 mg/dL Normal 70-110 [facility] Internal Medicine Work Phone: LDH 190 U/L Normal 84-246 [facility] Work Phone: Phosphate mass conc 2.5 mg/dL Normal 2.5-4.9 Compr ehensive Internal Medicine Work Phone: Potassium molar conc 4.0 mmol/L Normal 3.5-5.1 [facility] Internal Medicine Work Phone: Protein mass conc 7.1 g/dL Normal 6.4-8.2 Com[facility] ens[facility] Internal Medicine Work Phone: Sodium molar conc 135 mmol/L Abnormal 136-145 [facility] Internal Medicine Work Phone: Triglyceride mass conc 456 mg/dL Abnormal [facility] Medicine Work Phone: Comment on above: The drugs N-Acetylcy steine and Metamizole may falsely deressthis assay.TRIGLYCERIDE IS GREATER THAN 400 mg/dL.LDL RESULT IS INVALID AND WILL NOT BE REPORTED.Serum Triglycerides Reference Interval Normal <150 mg/dL Borderline high 150 - 199 mg/dL High 200 - 499 mg/dL Very High > or = 500 mg/dL Urea nitrogen mass conc 14 mg/dL Normal 7-18 [facility] Work Phone: Urea nitrogen mass conc (Bld) 17.8 {RATIO} Normal 10-20 [facility] Work Phone: URIC 5.6 mg/dL Normal 2.6-6.0 [facility] Work Phone: Comment on above: The drugs N-Acetylcy steine and Metamizole may falsely deressthis assay. Nicotine Urine Drug ScreenOr dered By: Abrasive Sawyer on 10-03-2015 COT DRG SCREEN Negative Normal [facility] Work Phone: Comment on above: Cotinine is the firs t-stage metabolite of Nicotine. TO BE CONFIRMED Normal [facility] Internal Medicine Work Phone: Comment on above: CONFIRMATORY TESTING FOR ALL POSITIVE URINE DRUG [...] result, particularly whenpreliminary positive results are used. Urinalysis, EmployeeOrdered By: Abrasive Sawyer on 10-03-2015 CLARITY Clear Normal [facility] Internal Medicine Work Phone: COLOR Yellow Normal [facility] Internal Medicine Work Phone: LEUK ESTERASE 25 /ul Abnormal [facility] Internal Medicine Work Phone: NITRITE UR Negative Normal [facility] Internal Medicine Work Phone: pH UR 5.0 1 Normal 5.0 - 8.0 [facility] Internal Medicine Work Phone: PROT DIPSTX 15 mg/dL Abnormal [facility] Internal Medicine Work Phone: SP.GR. DIPSTX 1.020 1 Normal 1.002-1.03 0 [facility] Internal Medicine Work Phone: UROBILI Normal Normal [facility] Internal Medicine Work Phone: Lipid ProfileOrdered By: Burak tem Retail Shift Supervisor on 04-09-2015 Cholesterol in HDL mass conc 58 mg/dL Normal [facility] Internal Medicine Work Phone: Comment on above: Reference Range HDL <40 mg/dL Low HDL Cholesterol HDL >or= 60 mg/dL High HDL Cholesterol Cholesterol in LDL mass conc 93 mg/dL Normal 0-130 [facility] Work Phone: Cholesterol in VLDL mass conc 40 mg/dL Normal 5-40 [facility] Work Phone: Cholesterol mass conc 191 mg/dL Normal [facility] Internal Medicine Work Phone: Comment on above: <200 mg/dL Desirable 200-240 mg/dL Borderline >240 mg/dL High Risk Triglyceride mass conc 201 mg/dL Abnormal [facility] Internal Medicine Work Phone: Comment on above: Serum Triglycerides Reference Interval Normal <150 mg/dL Borderline high 150 - 199 mg/dL High 200 - 499 mg/dL Very High > or = 500 mg/dL CBC, EmployeeOrdered By: Burak tem Retail Shift Supervisor on 10-27-2014 Absolute Neut 2.7 {X10_3/uL} Normal 2.0-7.7 Compre[facility] ensive Internal Medicine Work Phone: Basophils/100 WBC Auto (Bld) 0.6 % Normal 0-1 [facility] Work Phone: Eosinophils/100 WBC Auto (Bld) 3.3 % Normal 0-5 [facility] Work Phone: Erythrocyte distribution width Auto Ratio (RBC) 12.7 % Normal 11.6-14.6 [facility] Work Phone: Hematocrit Auto Volume Fraction (Bld) 43.6 % Normal 37-47 [facility] Work Phone: Hemoglobin mass conc (Bld) 14.8 g/dL Normal 12.0-15.0 [facility] Work Phone: Lymphocytes Auto #/vol (Bld) 2.04 {X10_3/ul} Normal 0.83-4.51 [facility] Work Phone: Lymphocytes/100 WBC Auto (Bld) 37.8 % Normal 19-41 [facility] Work Phone: MCH Auto Entitic mass (RBC) 30.4 pg Normal 27.0-32.0 [facility] Work Phone: MCHC Auto mass conc (RBC) 33.9 {g/gl} Normal 32-36 [facility] Internal Medicine Work Phone: MCV Auto Entitic volume (RBC) 89.5 fL Normal 81-99 [facility] Internal Medicine Work Phone: Monocytes/100 WBC Auto (Bld) 8.7 % Normal 0-10 [facility] Internal Medicine Work Phone: Neutrophils/100 WBC Auto (Bld) 49.2 % Normal 47-70 [facility] Internal Medicine Work Phone: Platelet mean volume Auto Entitic volume (Bld) 9.9 fL Normal 6.2-12.0 [facility] Internal Medicine Work Phone: Platelets Auto #/vol (Bld) 289 10*3/uL Normal 150-450 [facility] Internal Medicine Work Phone: RBC Auto #/vol (Bld) 4.87 {M/mm3} Normal 4.2-5.4 [facility] Internal Medicine Work Phone: RDW SD 41.4 fL Normal 35.1-43.9 [facility] Internal Medicine Work Phone: WBC Auto #/vol (Bld) 5.4 10*3/uL Normal 4.4-11.0 [facility] Internal Medicine Work Phone: Employee ProfileOrdered By: Abrasive Sawyer on 10-27-2014 Albumin mass conc 3.7 g/dL Normal 3.4-5.0 [facility] Internal Medicine Work Phone: Albumin/Globulin mass ratio 1.1 {RATIO} Normal 0.9-2.4 [facility] Internal Medicine Work Phone: ALP enzyme act/vol 99 U/L Normal 50-136 [facility] Internal Medicine Work Phone: ALT enzyme act/vol 55 U/L Normal 12-78 [facility] Internal Medicine Work Phone: AST enzyme act/vol 31 U/L Normal 15-37 [facility] Internal Medicine Work Phone: Bilirubin mass conc 0.50 mg/dL Normal 0.20-1.00 Compr ehensive Internal Medicine Work Phone: Bilirubin.direct mass conc 0.06 mg/dL Normal 0.00-0.30 [facility] Work Phone: Calcium mass conc 9.1 mg/dL Normal 8.5-10.1 Compreh ensive Internal Medicine Work Phone: Chloride molar conc 105 mmol/L Normal 98-107 Compr ens[facility] Internal Medicine Work Phone: Cholesterol in HDL mass conc 39 mg/dL Normal [facility] Work Phone: Comment on above: Reference Range HDL <40 mg/dL Low HDL Cholesterol HDL >or= 60 mg/dL High HDL Cholesterol Cholesterol in LDL mass conc 201 mg/dL Abnormal 0-130 [facility] Work Phone: Cholesterol in VLDL mass conc 77 mg/dL Abnormal 5-40 [facility] Work Phone: Cholesterol mass conc 317 mg/dL Abnormal [facility] Internal Medicine Work Phone: Comment on above: <200 mg/dL Desirable 200-240 mg/dL Borderline >240 mg/dL High Risk CO2 molar conc 27.0 mmol/L Normal 21.0-32.0 Comprehen sive Internal Medicine Work Phone: Creatinine mass conc 0.79 mg/dL Normal 0.55-1.20 [facility] rehens[facility] Internal Medicine Work Phone: Comment on above: Please note revised CREATININE reference range [id number]. EST GFR - AA 101 mL/min Normal [facility] Internal Medicine Work Phone: GAP 6 1 Normal 5-15 [facility] Work Phone: GFR/1.73 sq M predicted among non-blacks MDRD vol rate/area (S/P/Bld) 83 mL/min/{1.73_m2} Normal [facility] Internal Medicine Work Phone: Globulin Calculated mass conc (S) 3.5 g/dL Normal 2.3-3.5 [facility] Work Phone: Glucose mass conc 89 mg/dL Normal 70-110 Compreh ensive Internal Medicine Work Phone: LDH 190 U/L Normal 84-246 [facility] Work Phone: Phosphate mass conc 3.0 mg/dL Normal 2.5-4.9 Compr ehensive Internal Medicine Work Phone: Potassium molar conc 4.1 mmol/L Normal 3.5-5.1 [facility] Internal Medicine Work Phone: Protein mass conc 7.2 g/dL Normal 6.4-8.2 Compreh ensive Internal Medicine Work Phone: Sodium molar conc 138 mmol/L Normal 136-145 Compre[facility] ens[facility] Internal Medicine Work Phone: Triglyceride mass conc 386 mg/dL Abnormal [facility] Work Phone: Comment on above: Serum Triglycerides Reference Interval Normal <150 mg/dL Borderline high 150 - 199 mg/dL High 200 - 499 mg/dL Very High > or = 500 mg/dL Urea nitrogen mass conc 17 mg/dL Normal 7-18 [facility] Work Phone: Urea nitrogen mass conc (Bld) 21.5 {RATIO} Abnormal 10-20 [facility] Work Phone: URIC 6.3 mg/dL Abnormal 2.6-6.0 [facility] Work Phone: Urinalysis, EmployeeOrdered By: Abrasive Sawyer on 10-27-2014 CLARITY Sl. Cloudy Normal [facility] Work Phone: COLOR Yellow Normal [facility] Work Phone: LEUK ESTERASE Negative Normal Comprehensi ve Internal Medicine Work Phone: pH UR 6.0 1 Normal 5.0 - 8.0 [facility] Work Phone: SP.GR. DIPSTX 1.015 1 Normal 1.002-1.03 0 [facility] Work Phone: UROBILI Normal Normal [facility] Work Phone: CBCEMOrdered By: System Tsering sebastian on 08-11-2013 Erythrocyte distribution width Auto Ratio (RBC) 12.9 % Normal 11.6-14.6 [facility] Work Phone: Hematocrit Auto Volume Fraction (Bld) 42.4 % Normal 37-47 [facility] Work Phone: Hemoglobin mass conc (Bld) 14.7 g/dL Normal 12.0-15.0 [facility] Work Phone: MCH Auto Entitic mass (RBC) 29.9 pg Normal 27.0-32.0 [facility] Work Phone: MCHC Auto mass conc (RBC) 34.7 {g/gl} Normal 32-36 [facility] Work Phone: MCV Auto Entitic volume (RBC) 86.2 fL Normal 81-99 [facility] Work Phone: Platelet mean volume Auto Entitic volume (Bld) 10.1 fL Normal 6.2-12.0 [facility] Work Phone: Platelets Auto #/vol (Bld) 282 10*3/uL Normal 150-450 [facility] Work Phone: RBC Auto #/vol (Bld) 4.92 {M/mm3} Normal 4.2-5.4 [facility] Work Phone: WBC Auto #/vol (Bld) 5.9 10*3/uL Normal 4.4-11.0 [facility] prehensive Internal Medicine Work Phone: CBCEM 1.82 {X10_3/ul} Normal 0.83-4.51 Comprehen sive Internal Medicine Work Phone: CBCEM 3.3 {X10_3/uL} Normal 2.0-7.7 [facility] [place] [facility] Work Phone: CBCEM 39.6 fL Normal 35.1-43.9 [facility] Work Phone: CBCEM 56.6 % Normal 47-70 [facility] Work Phone: CBCEM 31.0 % Normal 19-41 [facility] Work Phone: CBCEM 9.9 % Normal 0-10 [facility] Work Phone: CBCEM 1.7 % Normal 0-5 [facility] Work Phone: CBCEM 0.5 % Normal 0-1 [facility] Work Phone: EMPOrdered By: System Manage r on 08-11-2013 Albumin mass conc 4.1 g/dL Normal 3.4-5.0 Compreh ensive Internal Medicine Work Phone: Albumin/Globulin mass ratio 1.4 {RATIO} Normal 0.9-2.4 [facility] Work Phone: ALT enzyme act/vol 69 U/L Normal 12-78 Compre [facility] Internal Medicine Work Phone: AST enzyme act/vol 41 U/L Abnormal 15-37 Compre [facility] Internal Medicine Work Phone: Calcium mass conc 9.0 mg/dL Normal 8.5-10.1 Compreh ensive Internal Medicine Work Phone: Chloride molar conc 103 mmol/L Normal 98-107 Compr ehensive Internal Medicine Work Phone: Cholesterol in HDL mass conc 44 mg/dL Normal [facility] Internal Medicine Work Phone: Comment on above: Reference RangeHDL < 40 mg/dL Low HDL CholesterolHDL >or= 60 mg/dL High HDL Cholesterol Cholesterol in LDL mass conc 128 mg/dL Normal 0-130 [facility] Internal Medicine Work Phone: Cholesterol mass conc 201 mg/dL Abnormal Com prehensive Internal Medicine Work Phone: Comment on above: <200 mg/dL Desirable 200-240 mg/dL Borderline>240 mg/dL High Risk CO2 molar conc 27.0 mmol/L Normal 21.0-32.0 [facility] Internal Medicine Work Phone: Creatinine mass conc 0.8 mg/dL Normal 0.6-1.0 [facility] Work Phone: GFR/1.73 sq M predicted among non-blacks MDRD vol rate/area (S/P/Bld) 82 mL/min/{1.73_m2} Normal [facility] Work Phone: Globulin Calculated mass conc (S) 3.0 g/dL Normal 2.7-4.2 [facility] Work Phone: Glucose mass conc 103 mg/dL Normal 70-110 Compreh ensive Internal Medicine Work Phone: Potassium molar conc 4.0 mmol/L Normal 3.5-5.1 [facility] Internal Medicine Work Phone: Protein mass conc 7.1 g/dL Normal 6.4-8.2 Compreh ensive Internal Medicine Work Phone: Sodium molar conc 136 mmol/L Normal 136-145 Compre[facility] ensive Internal Medicine Work Phone: Triglyceride mass conc 147 mg/dL Normal 0-199 [facility] Work Phone: Comment on above: Serum Triglycerides Reference IntervalNormal <150 mg/dLBorderline high 150 - 199 mg/dLHigh 200 - 499 mg/dLVery High > or = 500 mg/dL Urea nitrogen mass conc 21 mg/dL Abnormal 7-18 [facility] Work Phone: EMP 99 mL/min Normal [facility] Work Phone: EMP 26.3 {RATIO} Abnormal 10-20 Comprehens[facility] e Internal Medicine Work Phone: EMP 6.6 mg/dL Abnormal 2.6-6.0 [facility] Medicine Work Phone: EMP 3.6 mg/dL Normal 2.5-4.9 [facility] Work Phone: EMP 99 U/L Normal 45-117 [facility] Work Phone: EMP 0.70 mg/dL Normal 0.00-1.00 [facility] Work Phone: EMP 0.14 mg/dL Normal 0.00-0.30 [facility] Work Phone: EMP 6 1 Normal 5-15 [facility] Work Phone: EMP 44 mg/dL Normal [facility] Work Phone: Comment on above: Reference RangeHDL < 40 mg/dL Low HDL CholesterolHDL >or= 60 mg/dL High HDL Cholesterol EMP 29 mg/dL Normal 5-40 [facility] Work Phone: EMP 211 U/L Normal 87-241 [facility] Work Phone: UAEMOrdered By: System Manag er on 08-11-2013 UAEM Negative Normal [facility] Work Phone: UAEM Yellow Normal [facility] Work Phone: UAEM Sl. Cloudy Normal [facility] Work Phone: UAEM Normal Normal [facility] Work Phone: UAEM 1.020 1 Normal 1.002-1.03 0 [facility] Work Phone: UAEM 5.0 1 Normal 5.0 - 8.0 [facility] Work Phone: DDIMQOrdered By: System Tsering romulo on 02-04-2013 DDIMQ 0.30 {FEUug/mL} Normal 0.22-0.48 Comprehen sive [facility] Work Phone: Comment on above: NORMAL D-Dimer level indicates no DVT or PE. Pathology ReportOrdered By: Abrasive Sawyer on 06-30-2012 Pathology report site of origin Narrative MATER Normal Comprehensiv e [facility] Work Phone: Comment on above: Material submitted: .EXCISION RIGHT AXILLAClinical history: .LIPOMA;ETIOLOGY UNKNOWN;CHECK FOR MARGINS Diagnosis:EXCISION RIGHT AXILLA:BENIGN LIPOMA..BRIANNA/07/02/2012 Electronically signed: .Forest Espinoza MD, PhD, PathologistGross description: .1 Container, formalin-filled, labeled with patient identification.EXCISION RIGHT AXILLA:Received in formalin are multiple fragments of yellow tissuemeasuring 2.4 x 1.7 x 0.3 cm in aggregate. It is filtered through anembedding bag and submitted as received in cassette A./LMSLMS/LMSPathologist provided ICD-9:214.9CPT .208444 LIPIDOrdered By: Kavon sebastian on 03-29-2012 Cholesterol in HDL mass conc 38 mg/dL Abnormal [facility] Work Phone: Comment on above: Reference Range HDL <40 mg/dL Low HDL Cholesterol HDL >or= 60 mg/dL High HDL Cholesterol Cholesterol in LDL mass conc 114 mg/dL Normal 0-130 [facility] Work Phone: Cholesterol in VLDL mass conc 30 mg/dL Normal 5-40 [facility] Work Phone: Cholesterol mass conc 182 mg/dL Normal Com prehensive [facility] Medicine Work Phone: Comment on above: <200 mg/dL Desirable 200-240 mg/dL Borderline >240 mg/dL High Risk Triglyceride mass conc 148 mg/dL Normal [facility] Work Phone: Comment on above: Serum Triglycerides Reference Interval Normal <150 mg/dL Borderline high 150 - 199 mg/dL High 200 - 499 mg/dL Very High > or = 500 mg/dL LIVEROrdered By: Exeger [place] ABluis alberto sebastian on 03-29-2012 Albumin mass conc 4.1 g/dL Normal 3.4-5.0 Compreh ensive [facility] Medicine Work Phone: ALP enzyme act/vol 86 U/L Normal 50-136 Compre [facility] Internal Medicine Work Phone: ALT enzyme act/vol 30 U/L Normal 12-78 [facility] Work Phone: AST enzyme act/vol 17 U/L Normal 15-37 [facility] Internal [facility] Work Phone: Bilirubin mass conc 0.50 mg/dL Normal 0.00-1.00 Compr ensive [facility] Medicine Work Phone: Protein mass conc 7.2 g/dL Normal 6.4-8.2 Compreh ensive [facility] Medicine Work Phone: LIVER 0.08 mg/dL Normal 0.00-0.30 [facility] Work Phone: LIPIDOrdered By: Euclid on 12-17-2011 Cholesterol in HDL mass conc 47 mg/dL Normal [facility] Work Phone: Comment on above: Reference Range HDL <40 mg/dL Low HDL Cholesterol HDL >or= 60 mg/dL High HDL Cholesterol Cholesterol in LDL mass conc 151 mg/dL Abnormal 0-130 [facility] Work Phone: Cholesterol in VLDL mass conc 41 mg/dL Abnormal 5-40 [facility] Work Phone: Cholesterol mass conc 239 mg/dL Abnormal Com prehensive [facility] Work Phone: Comment on above: <200 mg/dL Desirable 200-240 mg/dL Borderline >240 mg/dL High Risk Triglyceride mass conc 205 mg/dL Abnormal Co mprehensive [facility] Work Phone: Comment on above: Serum Triglycerides Reference Interval Normal <150 mg/dL Borderline high 150 - 199 mg/dL High 200 - 499 mg/dL Very High > or = 500 mg/dL [id number] By: Ontela on 09-12-2011 Hemoglobin A1c/Hemoglobin.total mass fraction (Bld) 5.3 % Normal 4.2-6.3 Comprehens[facility] e [facility] Work Phone: LIPIDOrdered By: Euclid on 09-12-2011 Cholesterol in HDL mass conc 58 mg/dL Normal [facility] Work Phone: Comment on above: Reference Range HDL <40 mg/dL Low HDL Cholesterol HDL >or= 60 mg/dL High HDL Cholesterol Cholesterol in LDL mass conc 149 mg/dL Abnormal 0-130 [facility] Work Phone: Cholesterol in VLDL mass conc 20 mg/dL Normal 5-40 [facility] Work Phone: Cholesterol mass conc 227 mg/dL Abnormal Com prehensive [facility] Medicine Work Phone: Comment on above: <200 mg/dL Desirable 200-240 mg/dL Borderline >240 mg/dL High Risk Triglyceride mass conc 98 mg/dL Normal Co [facility] Work Phone: Comment on above: Serum Triglycerides Reference Interval Normal <150 mg/dL Borderline high 150 - 199 mg/dL High 200 - 499 mg/dL Very High > or = 500 mg/dL LIPIDOrdered By: Kavon sebastian on 05-16-2011 Cholesterol in HDL mass conc 50 mg/dL Normal [facility] Work Phone: Comment on above: Reference Range HDL <40 mg/dL Low HDL Cholesterol HDL >or= 60 mg/dL High HDL Cholesterol Cholesterol in LDL mass conc 141 mg/dL Abnormal 0-130 [facility] Work Phone: Cholesterol in VLDL mass conc 14 mg/dL Normal 5-40 [facility] Work Phone: Cholesterol mass conc 205 mg/dL Abnormal Com prehensive [facility] Medicine Work Phone: Comment on above: <200 mg/dL Desirable 200-240 mg/dL Borderline >240 mg/dL High Risk Triglyceride mass conc 70 mg/dL Normal [facility] Work Phone: Comment on above: Serum Triglycerides Reference Interval Normal <150 mg/dL Borderline high 150 - 199 mg/dL High 200 - 499 mg/dL Very High > or = 500 mg/dL [id number] [id number] By: Kavon alvarado on 02-25-2011 Hemoglobin A1c/Hemoglobin.total mass fraction (Bld) 5.9 % Normal 4.2-6.3 Comprehensiv e Internal Medicine Work Phone: FSH [id number] By: Kavon issa on 02-06-2011 FSH 4309 10.4 m[iU]/mL Normal Comprehensi ve Internal Medicine Work Phone: Comment on above: Follicular phase 3.5 - 12.5 Ovulation phase 4.7 - 21.5 Luteal phase 1.7 - 7.7 Postmenopausal 25.8 - 134.8Performed at: [address] [id number] Director: Mary Mccallum MD, Phone: [phone] LIVEROrdered By: Kavon sebastian on 02-06-2011 Albumin mass conc 4.1 g/dL Normal 3.4-5.0 Compreh ensive Internal Medicine Work Phone: ALP enzyme act/vol 95 U/L Normal 50-136 [facility] Internal Medicine Work Phone: ALT enzyme act/vol 31 U/L Normal 12-78 [facility] Internal Medicine Work Phone: AST enzyme act/vol 18 U/L Normal 15-37 [facility] Internal Medicine Work Phone: Bilirubin mass conc 0.50 mg/dL Normal 0.00-1.00 [facility] Internal Medicine Work Phone: Bilirubin.direct mass conc 0.10 mg/dL Normal 0.00-0.30 [facility] Work Phone: Protein mass conc 7.4 g/dL Normal 6.4-8.2 [facility] Work Phone: LUTEIN HOR [id number] By: Toy Techpackertem Retail Shift Supervisor on 02-06-2011 LUTEIN HOR 4283 30.8 m[iU]/mL Normal [facility] Internal Medicine Work Phone: Comment on above: Follicular phase 2.4 - 12.6 Ovulation phase 14.0 - 95.6 Luteal phase 1.0 - 11.4 Postmenopausal 7.7 - 58.5 [id number] By: Toy Techpackertem Retail Shift Supervisor on 02-06-2011 Protein mass conc Comment Normal Compreh ensive Internal Medicine Work Phone: Comment on above: Protein electrophore sis scan will follow via computer,mail, or instructional technology coach delivery. [id number].[id number] 53.7 % Normal [facility] Work Phone: [id number] SeeNote Normal [facility] Work Phone: Comment on above: Result: Not Observed [id number] 11.4 % Normal [facility] Work Phone: PROT.[id number] 9.0 % Normal [facility] Work Phone: [id number] 24.2 % Normal [facility] Work Phone: PROT.[id number] 1.7 % Normal [facility] Work Phone: [id number] 24.6 mg/dL Abnormal 0.0-15.0 [facility] Work Phone: SPE [id number] By: Abrasive Sawyer on 02-06-2011 Albumin mass conc 3.9 g/dL Normal 3.2-5.6 Compreh ensive [facility] Medicine Work Phone: Albumin/Globulin mass ratio 1.3 {ratio} Normal 0.7-2.0 [facility] Work Phone: Globulin Calculated mass conc (S) 2.9 g/dL Normal 2.0-4.5 [facility] Work Phone: Protein mass conc 6.8 g/dL Normal 6.0-8.5 Compreh ensive Internal Medicine Work Phone: SPE [id number] 0.9 g/dL Normal 0.5-1.6 [facility] Work Phone: SPE [id number] Comment Normal [facility] Work Phone: Comment on above: The SPE pattern appe ars essentially unremarkable. Evidenceof monoclonal protein is not apparent.Protein electrophoresis scan will follow via computer,mail, or instructional technology coach delivery. SPE [id number] 1.1 g/dL Normal 0.6-1.3 [facility] Work Phone: SPE [id number] 0.6 g/dL Normal 0.4-1.2 [facility] Work Phone: SPE [id number] 0.2 g/dL Normal 0.1-0.4 [facility] Work Phone: CBCD,SMEAR DIFFOrdered By: Toy ystem Retail Shift Supervisor on 01-15-2011 Basophils/100 WBC Auto (Bld) 1 % Normal 0-1 [facility] Work Phone: Eosinophils/100 WBC Auto (Bld) 3 % Normal 0-5 [facility] Work Phone: Erythrocyte distribution width Auto Ratio (RBC) 13.9 % Normal 11.6-14.6 [facility] Work Phone: Hematocrit Auto Volume Fraction (Bld) 42.3 % Normal 37-47 [facility] Internal Medicine Work Phone: Hemoglobin mass conc (Bld) 14.5 g/dL Normal 12.0-16.0 [facility] Internal Medicine Work Phone: Lymphocytes/100 WBC Auto (Bld) 27 % Normal 19-41 [facility] Work Phone: MCH Auto Entitic mass (RBC) 30.3 pg Normal 27.0-32.0 [facility] Internal Medicine Work Phone: MCHC Auto mass conc (RBC) 34.3 g/dL Normal 32-36 [facility] Internal Medicine Work Phone: MCV Auto Entitic volume (RBC) 88.5 fL Normal 81-99 [facility] Internal Medicine Work Phone: Monocytes/100 WBC Auto (Bld) 6 % Normal 0-10 [facility] Internal Medicine Work Phone: Neutrophils Auto #/vol (Bld) 4.7 3/uL Normal 2.0-7.7 [facility] Internal Medicine Work Phone: Platelets Auto #/vol (Bld) 297 10*3/uL Normal 150-450 [facility] Internal Medicine Work Phone: RBC Auto #/vol (Bld) 4.78 {M/mm3} Normal 4.2-5.4 Co mprehensive [facility] Medicine Work Phone: WBC Auto #/vol (Bld) 7.2 10*3/uL Normal 4.4-11.0 Com prehensive Internal Medicine Work Phone: CBCD,SMEAR DIFF 63 % Normal 47-70 Comprehen [facility] Internal Medicine Work Phone: CBCD,SMEAR DIFF 100 1 Normal Comprehen [facility] Internal Medicine Work Phone: COMP METABOLICOrdered By: Sy stem Retail Shift Supervisor on 01-15-2011 Albumin mass conc 3.9 g/dL Normal 3.4-5.0 Compreh ensive Internal Medicine Work Phone: Albumin/Globulin mass ratio 1.3 {RATIO} Normal 0.9-2.4 [facility] Internal Medicine Work Phone: ALP enzyme act/vol 91 U/L Normal 50-136 [facility] Internal Medicine Work Phone: ALT enzyme act/vol 30 U/L Normal 12-78 [facility] Work Phone: Anion gap 3 molar conc 10 mmol/L Normal 5-15 Co [facility] Internal Medicine Work Phone: AST enzyme act/vol 21 U/L Normal 15-37 [facility] Internal Medicine Work Phone: Bilirubin mass conc 0.50 mg/dL Normal 0.00-1.00 [facility] Internal Medicine Work Phone: Calcium mass conc 8.5 mg/dL Normal 8.5-10.[address] [facility] Internal Medicine Work Phone: Chloride molar conc 104 mmol/L Normal 98-107 [facility] Internal Medicine Work Phone: CO2 molar conc 24.0 mmol/L Normal 21.0-32.0 [facility] Work Phone: Creatinine mass conc 0.8 mg/dL Normal 0.6-1.0 [facility] Internal [facility] Work Phone: GFR/1.73 sq M predicted among blacks MDRD vol rate/area (S/P/Bld) 101 mL/min/{1.73_m2} Normal Compre[facility] Internal Medicine Work Phone: GFR/1.73 sq M.predicted MDRD vol rate/area 83 mL/min/{1.73_m2} [facility] Work Phone: Globulin Calculated mass conc (S) 2.9 g/dL Normal 2.7-4.2 [facility] Internal Medicine Work Phone: Glucose mass conc 79 mg/dL Normal 70-[address] [facility] Internal Medicine Work Phone: Potassium molar conc 4.3 mmol/L Normal 3.5-5.1 Comp rehensive Internal Medicine Work Phone: Protein mass conc 6.8 g/dL Normal 6.4-8.2 Compreh ensive Internal Medicine Work Phone: Sodium molar conc 138 mmol/L Normal 136-145 Compreh ensive Internal Medicine Work Phone: Urea nitrogen mass conc 12 mg/dL Normal 7-18 C omprehensive Internal Medicine Work Phone: Urea nitrogen/Creatinine mass ratio 15.0 {RATIO} Normal 10-20 [facility] Work Phone: COMPLETE UAOrdered By: Marck José on 01-15-2011 RBC Test strip #/vol (U) 0 SEEN Normal 0-5 [facility] Work Phone: COMPLETE UA 1.015 1 Normal 1.002-1.03 0 [facility] Work Phone: COMPLETE UA SeeNote Normal 5-10 [facility] Work Phone: Comment on above: Result: NEGATIVE Result: NORM C+C Result: ADEQUATE Result: 0-5 SEEN Result: 10-25 SEEN COMPLETE UA CLEAR Normal [facility] Work Phone: COMPLETE UA YELLOW Normal [facility] Work Phone: COMPLETE UA 0.2 EU/dl Normal 0.2 - 1.0 [facility] Work Phone: COMPLETE UA 7.5 1 Normal 5.0-8.0 [facility] Work Phone: COMPLETE UA 1+ Normal [facility] Work Phone: COMPLETE UA 0 SEEN Normal [facility] Work Phone: LIPIDOrdered By: Kavon sebastian on 01-15-2011 Cholesterol in HDL mass conc 41 mg/dL Normal [facility] Work Phone: Comment on above: Reference Range HDL <40 mg/dL Low HDL Cholesterol HDL >or= 60 mg/dL High HDL Cholesterol Cholesterol in LDL mass conc 186 mg/dL Abnormal 0-130 [facility] Work Phone: Cholesterol in VLDL mass conc 41 mg/dL Abnormal 5-40 [facility] Work Phone: Cholesterol mass conc 268 mg/dL Abnormal Com prehensive Internal Medicine Work Phone: Comment on above: <200 mg/dL Desirable 200-240 mg/dL Borderline >240 mg/dL High Risk Triglyceride mass conc 204 mg/dL Abnormal Co mprehensive [facility] Work Phone: Comment on above: Serum Triglycerides Reference Interval Normal <150 mg/dL Borderline high 150 - 199 mg/dL High 200 - 499 mg/dL Very High > or = 500 mg/dL MICROALBOrdered By: System TeamBuy anager on 01-15-2011 Creatinine mass conc 41.3 {mg/g_CRE} Abnormal [facility] Work Phone: MICROALB 66.0 mg/L Normal [facility] Work Phone: MICROALB 159.7 mg/dL Normal [facility] Work Phone: TSHOrdered By: System Manage r on 01-15-2011 Thyrotropin Qn 1.16 {uIU/mL} Normal 0.358-3.74 Compreh ensive Internal Medicine Work Phone: CERV SPINE,MIN 4 VIEWSOrdere d By: Abrasive Sawyer on 10-12-2009 CERV SPINE,MIN 4 VIEWS See Note Normal Co mprehensive [facility] Medicine Work Phone: Comment on above: Exam Number: [id number] CLINICAL:43-year-old female with neck pain. X-RAY EXAMINATION: CERVICAL SPINE TECHNIQUE:AP, lateral, oblique, and open mouth odontoid views of the cervicalspine were obtained. COMPARISON:None. FINDINGS:Normal craniovertebral junction. Normal anterior atlantoaxialarticulation. Normal odontoid process. There is slight straightening of the normal cervical lordosis.Normal alignment of the cervical vertebrae. Normal visualized cervical vertebral bodies, without compressiondeformity or destructive lesion. Normal visualized posterior osseous elements and spinous processes. No significant loss of the disc space heights. Normal visualizedvertebral endplates. Normal appearing right neuroforamina. Theoblique view for the left foramina is shallow, despite repeating it,and evaluation of the C6-7 and C7-T1 foramina is limited. The morecephalad foramina on the left appear normal. Normal visualized soft tissue structures. IMPRESSION:No significant plain film findings of spondylosis. Reported By: ELSA MOODY M.D. MYOCARD PERF STRESS/REST MUL TOrdered By: Abrasive Sawyer on 08-31-2009 MYOCARD PERF STRESS/REST MULT See Note Normal [facility] Work Phone: Comment on above: Exam Number: [id number] MYOCARDIAL PERFUSION SCAN 11.3 mCi of Tc99m Sestamibi was injected at rest. The patient thenexercised according to the regular Adria protocol for 12 minutesattaining 184 beats per minute and a work load of 13.4 METs. At peakexercise, 33.3 mCi of Tc99m Sestamibi was injected. Stress imageswere then obtained. Stress and rest images were reconstructed andcompared in the short axis, vertical long and horizontal long axes.Gated images were also obtained. Review of the stress images demonstrate normal uptake of tracer notedin all areas of the myocardium. The resting images similarlydemonstrate normal uptake of tracer in all areas of the myocardium.No reversibility is noted to suggest ischemia. The gated ejectionfraction is noted to be 67%. CONCLUSION1. Normal exercise myocardial perfusion scan at a high work load.2. Preserved ejection fraction. Reported By: ANNA MARIE PANTOJA M.D. CBCD,SMEAR DIFFOrdered By: Toy puritem Retail Shift Supervisor on 08-29-2009 Erythrocyte distribution width Auto Ratio (RBC) 15.2 % Abnormal 11.6-14.6 [facility] Work Phone: Hematocrit Auto Volume Fraction (Bld) 39.2 % Normal 37-47 [facility] Work Phone: Hemoglobin mass conc (Bld) 13.3 g/dL Normal 12.0-16.0 [facility] Work Phone: Lymphocytes/100 WBC Auto (Bld) 31 % Normal 19-41 [facility] Work Phone: MCH Auto Entitic mass (RBC) 29.5 pg Normal 27.0-32.0 [facility] Work Phone: MCHC Auto mass conc (RBC) 34.0 g/dL Normal 32-36 [facility] Work Phone: MCV Auto Entitic volume (RBC) 86.7 fL Normal 81-99 [facility] Work Phone: Monocytes/100 WBC Auto (Bld) 4 % Normal 0-10 [facility] Work Phone: Neutrophils Auto #/vol (Bld) 4.1 3/uL Normal 2.0-7.7 [facility] Work Phone: Platelets Auto #/vol (Bld) 269 10*3/uL Normal 150-450 [facility] Internal Medicine Work Phone: RBC Auto #/vol (Bld) 4.53 {M/mm3} Normal 4.2-5.4 [facility] Work Phone: WBC Auto #/vol (Bld) 6.8 10*3/uL Normal 4.4-11.0 Com [facility] Work Phone: CBCD,SMEAR DIFF 65 % Normal 47-70 Comprehen [facility] Internal Medicine Work Phone: CBCD,SMEAR DIFF SeeNote Normal Comprehen [facility] Internal Medicine Work Phone: Comment on above: Result: ADEQUATE Result: NORM C+C CBCD,SMEAR DIFF 100 1 Normal [facility] Work Phone: RENALOrdered By: System Tsering romulo on 08-29-2009 Albumin mass conc 3.7 g/dL Normal 3.4-5.0 Compreh ensive Internal Medicine Work Phone: Calcium mass conc 8.3 mg/dL Abnormal 8.5-10.1 Compreh ensive Internal Medicine Work Phone: Chloride molar conc 103 mmol/L Normal 98-107 Compr ehensive Internal Medicine Work Phone: CO2 molar conc 25.0 mmol/L Normal 21.0-32.0 Comprehen [facility] Internal Medicine Work Phone: Creatinine mass conc 0.7 mg/dL Normal 0.6-1.0 Comp [facility] Work Phone: GFR/1.73 sq M predicted among blacks MDRD vol rate/area (S/P/Bld) 119 mL/min/{1.73_m2} Normal Compreh ensive Internal Medicine Work Phone: GFR/1.73 sq M.predicted MDRD vol rate/area 98 mL/min/{1.73_m2} Normal Comprehen sive Internal Medicine Work Phone: Glucose mass conc 102 mg/dL Normal 70-110 Compreh ensive Internal Medicine Work Phone: Potassium molar conc 3.9 mmol/L Normal 3.5-5.1 Comp rehensive Internal Medicine Work Phone: Sodium molar conc 135 mmol/L Abnormal 136-145 Compreh ensive Internal Medicine Work Phone: Urea nitrogen mass conc 15 mg/dL Normal 7-18 C [facility]rehensive [facility] Medicine Work Phone: Urea nitrogen/Creatinine mass ratio 21.4 {RATIO} Abnormal 10-20 [facility] Work Phone: RENAL 2.6 mg/dL Normal 2.5-4.9 [facility] Work Phone: Aerobic Bacterial CultureOrd ered By: Abrasive Sawyer on 08-13-2009 Bacteria identified Aer cx Nom (Unsp spec) Final report Normal [facility] Work Phone: Bacteria identified Cx Nom (Unsp spec) Staphylococcus aureus Normal Comprehens [place] [facility] Work Phone: Comment on above: Moderate growthSusce ptibility or resistance of staphylococci to oxacillin predictssusceptibility or resistance to (a) other hfkq-sodwcrjzn-yzakpsbznapkoquzh such as cloxacillin and dicloxacillin, (b) combinationsof a penicillin and a beta-lactamase inhibitor, and(c) anti-staphylococcal cephalosporins. Routine testing of otherpenicillins, beta-lactam/beta-lactamase inhibitor combinations,cephems, and carbapenems is not advised by the CLSI Standards(P010-Z61, 2005). Other Antibiotic susc [facility] Normal [facility] prehensive Internal Medicine Work Phone: Comment on above: S = Susceptibl e; I = Intermediate; R = Resistant P = Positive; N = NegativeMICS are expressed in micrograms per mLAntibiotic RSLT#1 RSLT#2 RSLT#3 RSLT#4Ciprofloxacin RClindamycin SErythromycin SGentamicin SLevofloxacin ILinezolid SMoxifloxacin RNitrofurantoin SOxacillin SPenicillin SQuinupristin/Dalfopristin SRifampin STetracycline STrimethoprim/Sulfa SVancomycin S CBC with manual diff ([id number]) Ordered By: Cher Sampson on 02-07-2009 Basophils Auto #/vol (Bld) 0.0 {x10E3/uL} Normal 0.0-0.2 [facility] Work Phone: Basophils/100 WBC Auto (Bld) 1 % Normal 0-3 [facility] Work Phone: Eosinophils Auto #/vol (Bld) 0.1 {x10E3/uL} Normal 0.0-0.4 [facility] Work Phone: Eosinophils/100 WBC Auto (Bld) 2 % Normal 0-7 [facility] Work Phone: Erythrocyte distribution width Auto Ratio (RBC) 13.8 % Normal 11.7-15.0 [facility] Work Phone: Hematocrit Auto Volume Fraction (Bld) 39.7 % Normal 34.0-44.0 [facility] Work Phone: Hemoglobin mass conc (Bld) 13.5 g/dL Normal 11.5-15.0 [facility] Work Phone: Lymphocytes Auto #/vol (Bld) 1.6 {x10E3/uL} Normal 0.7-4.5 [facility] Work Phone: Lymphocytes/100 WBC Auto (Bld) 33 % Normal 14-46 [facility] Work Phone: MCH Auto Entitic mass (RBC) 30.6 pg Normal 27.0-34.0 [facility] Work Phone: MCHC Auto mass conc (RBC) 34.1 g/dL Normal 32.0-36.0 [facility] Work Phone: MCV Auto Entitic volume (RBC) 90 fL Normal 80-98 [facility] Work Phone: Monocytes Auto #/vol (Bld) 0.3 {x10E3/uL} Normal 0.1-1.0 [facility] Work Phone: Monocytes/100 WBC Auto (Bld) 7 % Normal 4-13 [facility] Work Phone: Neutrophils Auto #/vol (Bld) 2.8 {x10E3/uL} Normal 1.8-7.8 [facility] Work Phone: Neutrophils/100 WBC Auto (Bld) 57 % Normal 40-74 [facility] Work Phone: Platelets Auto #/vol (Bld) 282 {x10E3/uL} Normal 140-415 [facility] Work Phone: RBC Auto #/vol (Bld) 4.42 {x10E6/uL} Normal 3.80-5.10 [facility] Work Phone: WBC Auto #/vol (Bld) 4.9 {x10E3/uL} Normal 4.0-10.5 [facility] Work Phone: HEPATIC FUNCTION PANEL ([id number])Ordered By: Cher Sampson on 02-07-2009 Bilirubin.direct mass conc 0.14 mg/dL Normal 0.00-0.40 [facility] Work Phone: Metabolic Panel, Comprehensi ve ([id number])Ordered By: Cher Sampson on 02-07-2009 Albumin mass conc 4.5 g/dL Normal 3.5-5.5 [facility] Work Phone: Albumin/Globulin mass ratio 2.0 {ratio} Normal 1.1-2.5 [facility] Medicine Work Phone: ALP enzyme act/vol 80 [iU]/L Normal 25-150 Compre [facility] Internal [facility] Work Phone: ALT enzyme act/vol 12 [iU]/L Normal 0-40 [facility] Work Phone: AST enzyme act/vol 18 [iU]/L Normal 0-40 Compre hensive [facility] Medicine Work Phone: Bilirubin mass conc 0.6 mg/dL Normal 0.1-1.2 Compr ehensive [facility] Medicine Work Phone: Calcium mass conc 9.4 mg/dL Normal 8.5-10.6 Compreh ensive [facility] Work Phone: Chloride molar conc 103 mmol/L Normal 97-108 Compr ehensive [facility] Medicine Work Phone: CO2 molar conc 22 mmol/L Normal 20-32 [facility] Work Phone: Creatinine mass conc 0.64 mg/dL Normal 0.57-1.00 Comp rehensive [facility] Work Phone: GFR/1.73 sq M predicted among blacks MDRD vol rate/area (S/P/Bld) mL/min/{1.73_m2} Normal Comprehensi ve Internal Medicine Work Phone: Comment on above: Note: Persistent red uction for 3 months or more in an eGFR<60 mL/min/1.73 m2 defines CKD. Patients with eGFR values>/=60 mL/min/1.73 m2 may also have CKD if evidence of persistentproteinuria is present. Additional information may be found atwww.kdoqi.org. GFR/1.73 sq M.predicted MDRD vol rate/area mL/min/{1.73_m2} Normal Comprehensiv e [facility] Work Phone: Globulin Calculated mass conc (S) 2.3 g/dL Normal 1.5-4.5 [facility] Work Phone: Glucose mass conc 83 mg/dL Normal 65-99 Compreh ensive [facility] Work Phone: Potassium molar conc 4.1 mmol/L Normal 3.5-5.2 Comp rehensive [facility] Work Phone: Protein mass conc 6.8 g/dL Normal 6.0-8.5 Compreh ensive [facility] Work Phone: Sodium molar conc 139 mmol/L Normal 135-145 Compreh ensive [facility] Work Phone: Urea nitrogen mass conc 16 mg/dL Normal 5-26 C omprehens[facility] Work Phone: Urea nitrogen/Creatinine mass ratio 25 mg/mg Normal 8-27 [facility] Work Phone: SED RATE ERYTHROCYTE ([id number]) Ordered By: Cher Sampson on 02-07-2009 ESR Velocity (Bld) 2 mm/h Normal 0-20 Compre hensive [facility] Work Phone: Urinalysis, Office ([id number])Or dered By: Stacey Bui on 02-07-2009 Bilirubin Ql (U) Negative Normal Comprehe nsive [facility] Medicine Work Phone: Glucose Test strip mass conc (U) Negative Normal [facility] Work Phone: Hemoglobin Test strip Ql (U) Negative Normal [facility] Work Phone: Ketones Ql (U) Negative Normal [facility] [facility] Work Phone: Leukocyte esterase Test strip Ql (U) Negative Normal [facility] Work Phone: Nitrite Test strip Ql (U) Negative Normal [facility] Work Phone: pH Test strip (U) 6.0 [pH] Normal Compreh ensive [facility] Work Phone: Protein Test strip Ql (U) Negative Normal [facility] Work Phone: Specific gravity Relative Density (U) 1.025 1 Normal Comprehensi ve Internal Medicine Work Phone: Urobilinogen mass/time (24H U) Normal Normal [facility] Work Phone: ABDOMEN WITH IV CONTRASTOrde red By: Abrasive Sawyer on 01-31-2009 ABDOMEN WITH IV CONTRAST See Note Normal [facility] Work Phone: Comment on above: Exam Number: [id number] ABDOMEN WITH IV AND ORAL CONTRAST TECHNIQUEMultiplanar CT abdomen images were obtained after intravenous and oralcontrast (Isovue 300, 100 mL). FINDINGSThere are 4 to 5 small sub cm hypodense lesions at liver, at bothlobes, too small to characterize most likely represent small cysts. Prior cholecystectomy. Normal appendix. No evidence of free fluid orfree air. Please note only images up to upper pelvis were obtained. Nonobstructive bowel gas pattern is noted. No significantlymphadenopathy. Both kidneys concentrated and excreted contrast normally. Thepancreas, bilateral adrenal glands, spleen are unremarkable. Visualized bones are grossly unremarkable. IMPRESSION1. No acute intra-abdominal findings. Normal appendix.2. A few nonspecific 4 to 5 small sub cm hypodense lesions at liver,most likely represent cysts. Reported By: Minor Boateng ACUTE ABDOMEN, INC CHEST (MD )Ordered By: Abrasive Sawyer on 01-16-2009 ACUTE ABDOMEN, INC CHEST (MD) See Note Normal [facility] Work Phone: Comment on above: Exam Number: [id number] CLINICAL:Right upper quadrant pain. X-RAY EXAMINATION: CHEST / ABDOMEN TECHNIQUE:Four views of the abdomen were obtained including supine, upright views. An additional AP view of the chest was obtained. COMPARISON:None. FINDINGS:Normal heart without cardiac enlargement. Normal visualized aortic arch and descending thoracic aorta. Normal visualized mediastinum without a demonstrated mass lesion. Normal pulmonary hilar and peripheral pulmonary vessels without pulmonary vascular congestion. There are no pleural effusions. Normal visualized lungs without a demonstrated acute pulmonary process. Normal, non-specific bowel gas pattern, without a demonstrated ileus, bowel obstruction, free peritoneal air, or extraluminal gas collection. Normal visualized abdominal organs and soft tissues. Cholecystectomy clips are identified in the right upper quadrant. There are no abdominal calcifications. There are no pelvic calcifications. Normal visualized osseous structures. IMPRESSION:No demonstrated acute pathologic process of the chest or abdomen. Cholecystectomy clips in the right upper quadrant. Reported By: MICHAELA MARK M.D. CBC with manual diff ([id number]) Ordered By: Cher Sampson on 01-16-2009 Basophils Auto #/vol (Bld) 0.0 {x10E3/uL} Normal 0.0-0.2 [facility] Work Phone: Basophils/100 WBC Auto (Bld) 0 % Normal 0-3 [facility] Work Phone: Eosinophils Auto #/vol (Bld) 0.1 {x10E3/uL} Normal 0.0-0.4 [facility] Work Phone: Eosinophils/100 WBC Auto (Bld) 1 % Normal 0-7 [facility] Work Phone: Erythrocyte distribution width Auto Ratio (RBC) 15.0 % Normal 11.7-15.0 [facility] Work Phone: Hematocrit Auto Volume Fraction (Bld) 38.9 % Normal 34.0-44.0 [facility] Work Phone: Hemoglobin mass conc (Bld) 13.5 g/dL Normal 11.5-15.0 [facility] Work Phone: Lymphocytes Auto #/vol (Bld) 1.5 {x10E3/uL} Normal 0.7-4.5 [facility] Work Phone: Lymphocytes/100 WBC Auto (Bld) 25 % Normal 14-46 [facility] Work Phone: MCH Auto Entitic mass (RBC) 30.6 pg Normal 27.0-34.0 [facility] Work Phone: MCHC Auto mass conc (RBC) 34.8 g/dL Normal 32.0-36.0 [facility] Work Phone: MCV Auto Entitic volume (RBC) 88 fL Normal 80-98 [facility] Work Phone: Monocytes Auto #/vol (Bld) 0.4 {x10E3/uL} Normal 0.1-1.0 [facility] Work Phone: Monocytes/100 WBC Auto (Bld) 6 % Normal 4-13 [facility] Work Phone: Neutrophils Auto #/vol (Bld) 4.1 {x10E3/uL} Normal 1.8-7.8 [facility] Work Phone: Neutrophils/100 WBC Auto (Bld) 68 % Normal 40-74 [facility] Work Phone: Platelets Auto #/vol (Bld) 252 {x10E3/uL} Normal 140-415 [facility] Work Phone: RBC Auto #/vol (Bld) 4.42 {x10E6/uL} Normal 3.80-5.10 [facility] Work Phone: WBC Auto #/vol (Bld) 6.0 {x10E3/uL} Normal 4.0-10.5 [facility] Internal Medicine Work Phone: HEPATIC FUNCTION PANEL ([id number])Ordered By: Cher Bhatmuair on 01-16-2009 Bilirubin.direct mass conc 0.11 mg/dL Normal 0.00-0.40 [facility] Internal Medicine Work Phone: Metabolic Panel, Comprehensi ve ([id number])Ordered By: Cher Camilla on 01-16-2009 Albumin mass conc 4.4 g/dL Normal 3.5-5.5 [facility] Internal Medicine Work Phone: Albumin/Globulin mass ratio 1.8 {ratio} Normal 1.1-2.5 [facility] Medicine Work Phone: ALP enzyme act/vol 78 [iU]/L Normal 25-150 [facility] Internal Medicine Work Phone: ALT enzyme act/vol 10 [iU]/L Normal 0-40 [facility] Internal Medicine Work Phone: AST enzyme act/vol 19 [iU]/L Normal 0-40 [facility] Internal Medicine Work Phone: Bilirubin mass conc 0.4 mg/dL Normal 0.1-1.2 Compr [facility] Internal Medicine Work Phone: Calcium mass conc 9.4 mg/dL Normal 8.5-10.6 [facility]pre[facility] Work Phone: Chloride molar conc 103 mmol/L Normal 97-108 [facility] Internal Medicine Work Phone: CO2 molar conc 21 mmol/L Normal 20-32 [facility] Work Phone: Creatinine mass conc 0.65 mg/dL Normal 0.57-1.00 Comp [facility] Internal Medicine Work Phone: GFR/1.73 sq M predicted among blacks MDRD vol rate/area (S/P/Bld) mL/min/{1.73_m2} Normal Comprehensi ve Internal Medicine Work Phone: Comment on above: Note: Persistent red uction for 3 months or more in an eGFR<60 mL/min/1.73 m2 defines CKD. Patients with eGFR values>/=60 mL/min/1.73 m2 may also have CKD if evidence of persistentproteinuria is present. Additional information may be found [email or web address]. GFR/1.73 sq M.predicted MDRD vol rate/area mL/min/{1.73_m2} Normal Comprehensiv e [facility] Work Phone: Globulin Calculated mass conc (S) 2.4 g/dL Normal 1.5-4.5 [facility] Work Phone: Glucose mass conc 90 mg/dL Normal 65-99 Compreh ensive [facility] Work Phone: Potassium molar conc 4.4 mmol/L Normal 3.5-5.2 Comp rehensive [facility] Work Phone: Protein mass conc 6.8 g/dL Normal 6.0-8.5 Compreh ensive [facility] Work Phone: Sodium molar conc 139 mmol/L Normal 135-145 Compreh ensive [facility] Work Phone: Urea nitrogen mass conc 10 mg/dL Normal 5-26 [facility] Work Phone: Urea nitrogen/Creatinine mass ratio 15 mg/mg Normal 8-27 [facility] Work Phone: CBC, EMPLOYEEOrdered By: Burak tem Retail Shift Supervisor on 03-10-2008 Erythrocyte distribution width Auto Ratio (RBC) 12.6 % Normal 11.6-14.6 [facility] Work Phone: Hematocrit Auto Volume Fraction (Bld) 42.3 % Normal 37-47 [facility] Work Phone: Hemoglobin mass conc (Bld) 14.6 g/dL Normal 12.0-16.0 [facility] Work Phone: MCH Auto Entitic mass (RBC) 30.1 pg Normal 27.0-32.0 [facility] Work Phone: MCHC Auto mass conc (RBC) 34.6 g/dL Normal 32-36 [facility] Work Phone: MCV Auto Entitic volume (RBC) 87.1 fL Normal 81-99 [facility] Work Phone: Platelet mean volume Auto Entitic volume (Bld) 8.1 fL Normal 6.5-12.0 [facility] Work Phone: Platelets Auto #/vol (Bld) 349 10*3/uL Normal 150-450 [facility] Work Phone: RBC Auto #/vol (Bld) 4.86 {M/mm3} Normal 4.2-5.4 Co mprehensive [facility] Work Phone: WBC Auto #/vol (Bld) 5.5 10*3/uL Normal 4.4-11.0 Com prehensive [facility] Work Phone: EMP PROFOrdered By: Kavon issa on 03-10-2008 Albumin mass conc 4.2 g/dL Normal 3.4-5.0 Compreh ensive [facility] Medicine Work Phone: Albumin/Globulin mass ratio 1.2 {RATIO} Normal 0.9-2.4 [facility] Internal [facility] Work Phone: ALP enzyme act/vol 96 U/L Normal 50-136 Compre [facility] Internal Medicine Work Phone: AST enzyme act/vol 18 U/L Normal 15-37 [facility] Work Phone: Bilirubin mass conc 0.36 mg/dL Normal 0.00-1.00 Compr ehensive [facility] Medicine Work Phone: Calcium mass conc 9.1 mg/dL Normal 8.5-10.1 Compreh ensive [facility] Work Phone: Cholesterol in HDL mass conc 60 mg/dL Normal [facility] Work Phone: Comment on above: Reference Range HDL <40 mg/dL Low HDL Cholesterol HDL >or= 60 mg/dL High HDL Cholesterol Cholesterol in LDL mass conc 170 mg/dL Abnormal 0-130 [facility] Work Phone: Cholesterol in VLDL mass conc 14 mg/dL Normal 5-40 [facility] Work Phone: Cholesterol mass conc 244 mg/dL Abnormal Com prehensive [facility] Work Phone: Comment on above: <200 mg/dL Desirable 200-240 mg/dL Borderline >240 mg/dL High Risk Creatinine mass conc 0.8 mg/dL Normal 0.6-1.0 Comp rehensive [facility] Work Phone: GFR/1.73 sq M predicted among blacks MDRD vol rate/area (S/P/Bld) 102 mL/min/{1.73_m2} Normal Compreh ensive [facility] Medicine Work Phone: Comment on above: ESTIMATED GLOMERULAR FILTRATION RATE The National Kidney Foundation (NKF) guidelines forChronic kidney disease (CKD) recommends all laboratoriesestimate the level of glomerular filtration rate (GFR)in patients from age 18 - 70 years of age.The eGFR for patient's is the eGFRmultiplied by 1.212. [facility] Laboratory uses the abbreviated Modification of Diet inRenal Disease (MDRD) study equation to calculate the eGFR.The Estimated GFR equation is not applicable for patients<18 years of age or patients >70 years of age.The following conditions may alter the eGFR calculationresult: extremes in body size, severe malnutrition orobesity, skeletal muscle disease, paraplegia, quadriplegia,vegetarian diet, , certain drug therapy and rapidlychanging kidney function. Association of GFR and Staging of Kidney Disease*GFR (mL/min) With Kidney Disease W/O Kidney Disease>/= 90 Stage One Gkpkuh17 - 89 Stage Two Suspect Decreased GFR30 - 59 Stage Three Stage Three15 - 29 Stage Four Stage Four< 15 or Dialysis Stage Five Stage Five *Each stage assumes the associated GFR level has been ineffect for at least three months.Additional studies & clinical assessments are indicated toconclude diagnosis of Chronic Kidney Disease (CKD). GFR/1.73 sq M.predicted MDRD vol rate/area 84 mL/min/{1.73_m2} Normal Comprehen sive [facility] Medicine Work Phone: Globulin Calculated mass conc (S) 3.4 g/dL Normal 2.7-4.2 [facility] Work Phone: Glucose mass conc 104 mg/dL Normal 70-110 Compreh ensive [facility] Work Phone: LDH enzyme act/vol 176 U/L Normal 100-190 Compre hensive [facility] Work Phone: Protein mass conc 7.6 g/dL Normal 6.4-8.2 Compreh ensive [facility] Medicine Work Phone: Triglyceride mass conc 69 mg/dL Normal Co mprehensive [facility] Work Phone: Comment on above: Serum Triglycerides Reference Interval Normal <150 mg/dL Borderline high 150 - 199 mg/dL High 200 - 499 mg/dL Very High > or = 500 mg/dL Urea nitrogen mass conc 14 mg/dL Normal 7-18 C omprehensive [facility] Work Phone: Urea nitrogen/Creatinine mass ratio 17.5 {RATIO} Normal 10-20 [facility] Work Phone: EMP PROF 3.0 mg/dL Normal 2.5-4.9 [facility] Work Phone: EMP PROF 5.6 mg/dL Normal 2.6-6.0 [facility] Work Phone: EMP URINALYSISOrdered By: Michele stem Retail Shift Supervisor on 03-10-2008 EMP URINALYSIS SeeNote Normal [facility]prehens [facility] [facility] Work Phone: Comment on above: Result: NEGATIVE EMP URINALYSIS 0.2 EU/dl Normal 0.2 - 1.0 [facility] [place] [facility] Work Phone: EMP URINALYSIS 3+ Abnormal [facility]prehens [place] [facility] Work Phone: EMP URINALYSIS 6.0 1 Normal 5.0-8.0 [facility] [place] [facility] Work Phone: EMP URINALYSIS 1.020 1 Normal 1.002-1.03 0 [facility] Work Phone: EMP URINALYSIS TRACE Normal [facility] [place] [facility] Work Phone: EMP URINALYSIS CLEAR Normal [facility]prehens [facility] [facility] Work Phone: EMP URINALYSIS YELLOW Normal Comprehens [place] [facility] Work Phone: Pap Lb, Ct-Ng, HPV-hrOrdered By: Abrasive Sawyer on 09-15-2007 Pap Lb, Ct-Ng, HPV-hr Negative Normal Com prehensive [facility] Medicine Work Phone: Pap Lb, Ct-Ng, HPV-hr . Normal Com prehensive [facility] Work Phone: Pap Lb, Ct-Ng, HPV-hr PAPSMR Normal Com prehensive [facility] Medicine Work Phone: Comment on above: The Pap smear is a s creening test designed to aid in the detection ofpremalignant and malignant conditions of the uterine cervix. It is not adiagnostic procedure and should not be used as the sole means of detectingcervical cancer. Both false-positive and false-negative reports do occur. . Pap Lb, Ct-Ng, HPV-hr SPRCS Normal Com prehensive [facility] Medicine Work Phone: Comment on above: NEGATIVE FOR INTRAEP ITHELIAL LESION AND MALIGNANCY.Satisfactory for evaluation. Endocervical and/or squamous metaplasticcells (endocervical component) are present.616.10 ; Unspecified vaginitis and vulvovaginitisNatalie A [place], Location Director Urinalysis, Office ([id number])Or dered By: Denisse Tirado on 09-15-2007 Bilirubin Ql (U) Negative Normal Comprehe nsive Internal Medicine Work Phone: Glucose Test strip mass conc (U) Negative Normal [facility] Work Phone: Hemoglobin Test strip Ql (U) Negative Normal [facility] Work Phone: Ketones Ql (U) Negative Normal [facility] [facility] Work Phone: Leukocyte esterase Test strip Ql (U) Negative Normal [facility] Work Phone: Comment on above: aw Nitrite Test strip Ql (U) Negative Normal [facility] Work Phone: pH Test strip (U) 5.0 [pH] Normal Compreh ensive [facility] Medicine Work Phone: Protein Test strip Ql (U) Negative Normal [facility] Work Phone: Specific gravity Relative Density (U) 1.020 1 Normal Comprehensi Internal Medicine Work Phone: Urobilinogen mass/time (24H U) Normal Normal [facility] Work Phone: CBC, EMPLOYEEOrdered By: Burak tem Retail Shift Supervisor on 01-18-2007 Erythrocyte distribution width Auto Ratio (RBC) 13.2 % Normal 11.6-14.6 [facility] Internal Medicine Work Phone: Hematocrit Auto Volume Fraction (Bld) 38.2 % Normal 37-47 [facility] Internal [facility] Work Phone: Hemoglobin mass conc (Bld) 13.4 g/dL Normal 12.0-16.0 [facility] Internal [facility] Work Phone: MCH Auto Entitic mass (RBC) 31.2 pg Normal 27.0-32.0 [facility] Work Phone: MCHC Auto mass conc (RBC) 35.1 g/dL Normal 32-36 [facility] Work Phone: MCV Auto Entitic volume (RBC) 89.0 fL Normal 81-99 [facility] Internal Medicine Work Phone: Platelet mean volume Auto Entitic volume (Bld) 8.5 fL Normal 6.5-12.0 [facility] Work Phone: Platelets Auto #/vol (Bld) 240 10*3/uL Normal 150-450 [facility] Internal [facility] Work Phone: RBC Auto #/vol (Bld) 4.29 {M/mm3} Normal 4.2-5.4 Co mprehensive [facility] Work Phone: WBC Auto #/vol (Bld) 5.8 10*3/uL Normal 4.4-11.0 Com prehensive [facility] Medicine Work Phone: EMP PROFOrdered By: Kavon sisa on 01-18-2007 Albumin mass conc 3.8 g/dL Normal 3.4-5.0 Compreh ensive Internal Medicine Work Phone: Albumin/Globulin mass ratio 1.3 {RATIO} Normal 0.9-2.4 [facility] Work Phone: ALP enzyme act/vol 83 U/L Normal 50-136 [facility] Internal [facility] Work Phone: AST enzyme act/vol 16 U/L Normal 15-37 [facility] Work Phone: Bilirubin mass conc 0.39 mg/dL Normal 0.00-1.00 Compr ehensive Internal Medicine Work Phone: Calcium mass conc 8.6 mg/dL Normal 8.5-10.1 Compreh ensive Internal Medicine Work Phone: Cholesterol in HDL mass conc 52 mg/dL Normal [facility] Internal Medicine Work Phone: Comment on above: Reference Range HDL <40 mg/dL Low HDL Cholesterol HDL >or= 60 mg/dL High HDL Cholesterol Cholesterol in LDL mass conc 88 mg/dL Normal 0-130 [facility] Work Phone: Cholesterol in VLDL mass conc 10 mg/dL Normal 5-40 [facility] Work Phone: Cholesterol mass conc 150 mg/dL Normal Com prehensive [facility] Medicine Work Phone: Comment on above: <200 mg/dL Desirable 200-240 mg/dL Borderline >240 mg/dL High Risk Creatinine mass conc 0.6 mg/dL Normal 0.6-1.0 [facility] Work Phone: Globulin Calculated mass conc (S) 2.9 g/dL Normal 2.7-4.2 [facility] Internal Medicine Work Phone: Comment on above: Please Note Refer ence Interval Change Glucose mass conc 87 mg/dL Normal 70-110 [facility] ensive Internal Medicine Work Phone: LDH enzyme act/vol 138 U/L Normal 100-190 [facility] Work Phone: Protein mass conc 6.7 g/dL Normal 6.4-8.2 Compreh ensive Internal Medicine Work Phone: Triglyceride mass conc 49 mg/dL Normal Co [facility] Work Phone: Comment on above: Serum Triglycerides Reference Interval Normal <150 mg/dL Borderline high 150 - 199 mg/dL High 200 - 499 mg/dL Very High > or = 500 mg/dL Urea nitrogen mass conc 16 mg/dL Normal 7-18 C omprehensive [facility] Work Phone: Urea nitrogen/Creatinine mass ratio 26.7 {RATIO} Abnormal 10-20 [facility] Work Phone: EMP PROF 3.1 mg/dL Normal 2.5-4.9 [facility] Work Phone: EMP PROF 3.4 mg/dL Normal 2.6-6.0 [facility] Work Phone: EMP URINALYSISOrdered By: [employer] Retail Shift Supervisor on 01-18-2007 Protein mass conc SeeNote Normal Compreh ensive Internal Medicine Work Phone: Comment on above: Result: NEGATIVE EMP URINALYSIS 5.5 1 Normal 5.0-8.0 [facility] [facility] Work Phone: EMP URINALYSIS SeeNote Normal [facility] [facility] Work Phone: Comment on above: Result: NEGATIVE EMP URINALYSIS CLEAR Normal [facility] [facility] Work Phone: EMP URINALYSIS 1.025 1 Normal 1.002-1.03 0 [facility] Work Phone: EMP URINALYSIS 0.2 EU/dl Normal 0.2 - 1.0 [facility] [facility] Work Phone: EMP URINALYSIS YELLOW Normal [facility] [facility] Work Phone: CULTURE, URINEOrdered By: Michele [employer] Retail Shift Supervisor on 12-28-2006 Bacteria identified Cx Nom (U) See Note Normal [facility] Work Phone: Comment on above: COLONY COUNT <1000 O RGANISM 1: MIXED GRAM POSITIVE ORGANISMS Urinalysis, Office ([id number])Or dered By: Denisse Tirado on 12-28-2006 Bilirubin Ql (U) Large Normal Comprehe nsive Internal Medicine Work Phone: Glucose Test strip mass conc (U) Negative Normal [facility] Work Phone: Hemoglobin Test strip Ql (U) Non Hemolyzed Trace Normal Comprehensiv e Internal Medicine Work Phone: Ketones Ql (U) Negative Normal [facility] [facility] Work Phone: Leukocyte esterase Test strip Ql (U) Trace Normal [facility] Work Phone: Comment on above: aw Nitrite Test strip Ql (U) Negative Normal [facility] Work Phone: pH Test strip (U) 5.0 [pH] Normal [facility] Work Phone: Protein Test strip Ql (U) Negative Normal [facility] Work Phone: Specific gravity Relative Density (U) 1.020 1 Normal Comprehensi ve [facility] Work Phone: Urobilinogen mass/time (24H U) Normal Normal [facility] Work Phone: CBCOrdered By: System Manage r on 02-18-2006 Erythrocyte distribution width Auto Ratio (RBC) 13.0 % Normal 11.6-14.6 [facility] Work Phone: Hematocrit Auto Volume Fraction (Bld) 42.0 % Normal 37-47 [facility] Work Phone: Hemoglobin mass conc (Bld) 14.7 g/dL Normal 12.0-16.0 [facility] Work Phone: MCH Auto Entitic mass (RBC) 30.5 pg Normal 27.0-32.0 [facility] Work Phone: MCHC Auto mass conc (RBC) 34.9 g/dL Normal 32-36 [facility] Work Phone: MCV Auto Entitic volume (RBC) 87.3 fL Normal 81-99 [facility] Work Phone: Platelets Auto #/vol (Bld) 278 10*3/uL Normal 150-450 [facility] Work Phone: RBC Auto #/vol (Bld) 4.81 {M/mm3} Normal 4.2-5.4 [facility] Work Phone: WBC Auto #/vol (Bld) 8.4 10*3/uL Normal 4.4-11.0 Com prehensive [facility] Work Phone: COMP METABOLICOrdered By: Michele stem Retail Shift Supervisor on 02-18-2006 Albumin mass conc 4.2 g/dL Normal 3.4-5.0 Compre[facility] Work Phone: Albumin/Globulin mass ratio 1.4 {RATIO} Normal 0.9-2.4 [facility] Medicine Work Phone: ALP enzyme act/vol 85 U/L Normal 50-136 [facility] Work Phone: ALT enzyme act/vol 32 [iU]/L Normal 30-65 [facility] Work Phone: Anion gap 3 molar conc 8 mmol/L Normal 5-15 [facility] Work Phone: AST enzyme act/vol 17 U/L Normal 15-37 Compre [facility] Internal Medicine Work Phone: Bilirubin mass conc 0.70 mg/dL Normal 0.00-1.00 Compr ens[facility] Work Phone: Calcium mass conc 9.1 mg/dL Normal 8.5-10.1 Compreh ens[facility] Work Phone: Chloride molar conc 104 mmol/L Normal 98-107 Compr ensive [facility] Work Phone: CO2 molar conc 24.0 mmol/L Normal 22.0-29.0 [facility] Work Phone: Creatinine mass conc 0.9 mg/dL Normal 0.6-1.0 [facility] Work Phone: Globulin Calculated mass conc (S) 3.1 g/dL Normal 2.3-3.5 [facility] Medicine Work Phone: Glucose mass conc 91 mg/dL Normal 70-110 Compre[facility] ens[facility] Work Phone: Potassium molar conc 4.0 mmol/L Normal 3.5-5.1 [facility] Work Phone: Protein mass conc 7.3 g/dL Normal 6.4-8.2 Compre[facility] Work Phone: Sodium molar conc 136 mmol/L Normal 136-145 Compre[facility] Work Phone: Urea nitrogen mass conc 15 mg/dL Normal 7-18 [facility] Work Phone: Urea nitrogen/Creatinine mass ratio 16.7 {RATIO} Normal 10-20 [facility] Work Phone: PFLIPOrdered By: Kavon sebastian on 02-18-2006 Cholesterol in HDL mass conc 41 mg/dL Normal [facility] Work Phone: Comment on above: Reference Range HDL <40 mg/dL Low HDL Cholesterol HDL >or= 60 mg/dL High HDL Cholesterol Cholesterol in LDL mass conc 168 mg/dL Abnormal 0-130 [facility] Work Phone: Cholesterol in VLDL mass conc 35 mg/dL Normal 5-40 [facility] Work Phone: Cholesterol mass conc 244 mg/dL Abnormal Com prehensive [facility] Work Phone: Comment on above: <200 mg/dL Desirable 200-240 mg/dL Borderline >240 mg/dL High Risk Triglyceride mass conc 173 mg/dL Normal [facility] Work Phone: Comment on above: Serum Triglycerides Reference Interval Normal <150 mg/dL Borderline high 150 - 199 mg/dL High 200 - 499 mg/dL Very High > or = 500 mg/dL PRO TIMEOrdered By: Kavon issa on 02-18-2006 INR Coag RelTime (PPP) 1.0 {INR} Normal [facility] Work Phone: Prothrombin time (PT) Coag time (PPP) 12.8 s Normal 11.7-13.3 [facility] Work Phone: PROLACTIN [id number] By: Michele stem Retail Shift Supervisor on 02-18-2006 Prolactin mass conc 6.7 ng/mL Normal 2.8-29.2 Compr ens[facility] Work Phone: Comment on above: Male Female 0- 1 mon . 3.7 - 81.2 0.3 - 95.0 1-12 mons. 0.3 - 28.9 0.2 - 29.9 1- 3 yrs. 2.3 - 13.2 1.0 - 17.0 4- 6 yrs. 0.8 - 16.9 1.6 - 13.1 7- 9 yrs. 1.9 - 11.6 0.3 - 12.9 10-12 yrs. 0.9 - 12.9 1.9 - 9.6 13-15 yrs. 1.6 - 16.6 3.0 - 14.4 Adult 2.1 - 17.7 2.8 - 29.2 Female: Non- 2.8 - 29.2 9.7 - 208.5 Postmenopausal 1.8 - 20.3Performed At: [facility], [place] [id number] PTTOrdered By: System Manage r on 02-18-2006 aPTT Coag time (Bld) 30.5 s Normal 24.6-36.6 Comp rehensive [facility] Work Phone: TSHOrdered By: System Manage r on 02-18-2006 Thyrotropin Qn 1.29 {uIU/mL} Normal 0.34-4.82 Compreh ensive [facility] Work Phone: COVID-19 virus antigen assay SARS-CoV-2 (COVID-19) Ag IA.rapid Ql (Resp) [facility] Work Phone: Influenza virus A and B and SARS-CoV-2 (COVID-19) Ag panel - Upper respiratory specim SARS-CoV-2 (COVID-19) RNA DAREK+probe Ql (Resp) [facility] Work Phone: Laboratory - Microbiology an d Antimicrobial susceptibility S. pyogenes Ag Ql (Throat) [facility] Work Phone: No Panel Information SARS-CoV-2 & FLU Antigen (Rapid) [facility] Work Phone: Vital Signs Date Time Vital Sign Value Performing Clinician Facility 03-09-2024 00:29-0500 Body temperature 98.1 [degF] Dae BOND Work Phone: [phone] [place] [address] 03-09-2024 00:29-0500 Diastolic blood pressure 84 mm[Hg] Dae Hernandezder SENIOR SOFTWARE MANAGER-C Work Phone: [phone] [place] [address] 03-09-2024 00:29-0500 Heart rate 98 /min Dae Osman SENIOR SOFTWARE MANAGER-C Work Phone: [phone] [place] [address] 03-09-2024 00:29-0500 Respiratory rate 18 /min Dae Hernandezder SENIOR SOFTWARE MANAGER-C Work Phone: [phone] [place] [address] 03-09-2024 00:29-0500 SaO2% (BldA) [Mass fraction] 94 % Dae Osman SENIOR SOFTWARE MANAGER-C Work Phone: [phone] [place] [address] 03-09-2024 00:29-0500 Systolic blood pressure 100 mm[Hg] Dae Osman SENIOR SOFTWARE MANAGER-C Work Phone: [phone] [place] [address] 03-08-2024 22:39-0500 Body height 175.26 cm Dae Hernandezder SENIOR SOFTWARE MANAGER-C Work Phone: [phone] [place] [address] 03-08-2024 22:39-0500 Body mass index (BMI) [Ratio] 34.2 kg/m2 Dae Hernandezder SENIOR SOFTWARE MANAGER-C Work Phone: [phone] [place] [address] 03-08-2024 22:39-0500 Body weight 105.2 kg Dae Hernandezder SENIOR SOFTWARE MANAGER-C Work Phone: [phone] [address] 06-11-2022 11:10-0400 Body height 175.[address] Santhosh Abbott Work Phone: [facility] 06-11-2022 11:10-0400 Body mass index (BMI) [Ratio] 27.7 kg/m2 Dr. Santhosh Abbott Work Phone: [facility] 06-11-2022 11:10-0400 Body temperature 97.8 [degF] Dr. Santhosh Abbott Work Phone: [facility] 06-11-2022 11:10-0400 Body weight 85.[address] Santhosh Abbott Work Phone: [facility] 06-11-2022 11:10-0400 Diastolic blood pressure 78 mm[Hg] Dr. Santhosh Abbott Work Phone: [facility] 06-11-2022 11:10-0400 Heart rate 94 /min Dr. Santhosh Abbott Work Phone: [facility] 06-11-2022 11:10-0400 Respiratory rate 16 /min Dr. Santhosh Abbott Work Phone: [facility] 06-11-2022 11:10-0400 SaO2% (BldA) [Mass fraction] 99 % Dr. Santhosh Abbott Work Phone: [facility] 06-11-2022 11:10-0400 Systolic blood pressure 110 mm[Hg] Dr. Santhosh Abbott Work Phone: [facility] 04-30-2022 15:23-0500 Body height 175.[address] Santhosh Abbott Work Phone: [facility] 04-30-2022 15:23-0500 Body weight 87.[address] Santhosh Abbott Work Phone: [facility] 04-08-2022 15:34-0500 Body height 175.[address] Santhosh Abbott Work Phone: [facility] 04-08-2022 15:34-0500 Body weight 92.[address] Santhosh Abbott Work Phone: [facility] 03-20-2022 14:50-0500 Body height 175.[address] Santhosh Abbott Work Phone: [facility] 03-20-2022 14:50-0500 Body weight 94.[address] Santhosh Abbott Work Phone: [facility] 03-12-2022 13:31-0500 Body temperature 96.1 [degF] Dr. Santhosh Abbott Work Phone: [facility] 03-12-2022 13:31-0500 Body weight 94.[address] Santhosh Abbott Work Phone: [facility] 03-12-2022 13:31-0500 Diastolic blood pressure 96 mm[Hg] Dr. Santhosh Abbott Work Phone: [facility] 03-12-2022 13:31-0500 Heart rate 103 /min Dr. Santhosh Abbott Work Phone: [facility] 03-12-2022 13:31-0500 Respiratory rate 16 /min Dr. Santhosh Abbott Work Phone: [facility] 03-12-2022 13:31-0500 SaO2% (BldA) [Mass fraction] 96 % Dr. Santhosh Abbott Work Phone: [facility] 03-12-2022 13:31-0500 Systolic blood pressure 136 mm[Hg] Dr. Santhosh Abbott Work Phone: [facility] 02-04-2022 16:19-0500 Body height 175.[address] Santhosh Abbott Work Phone: [facility] Work Phone: 02-04-2022 16:19-0500 Body weight 96.[address] Santhosh Abbott Work Phone: [facility] 01-30-2022 00:08-0500 Body weight 103.[address] Santhosh Abbott Work Phone: [facility] Work Phone: 01-28-2022 10:30-0500 Body temperature 96 [degF] Dr. Santhosh Abbott Work Phone: [facility] 01-28-2022 10:30-0500 Body weight 98.[address] Santhosh Abbott Work Phone: [facility] 01-28-2022 10:30-0500 Diastolic blood pressure 86 mm[Hg] Dr. Santhosh Abbott Work Phone: [facility] 01-28-2022 10:30-0500 Heart rate 83 /min Dr. Santhosh Abbott Work Phone: [facility] 01-28-2022 10:30-0500 Respiratory rate 18 /min Dr. Santhosh Abbott Work Phone: [facility] 01-28-2022 10:30-0500 SaO2% (BldA) [Mass fraction] 97 % Dr. Santhosh Abbott Work Phone: [facility] 01-28-2022 10:30-0500 Systolic blood pressure 128 mm[Hg] Dr. Santhosh Abbott Work Phone: [facility] 01-21-2022 08:20-0500 Body temperature 97.6 [degF] Dr. Santhosh Abbott Work Phone: [facility] 01-21-2022 08:20-0500 Diastolic blood pressure 100 mm[Hg] Dr. Santhosh Abbott Work Phone: [facility] 01-21-2022 08:20-0500 Heart rate 82 /min Dr. Santhosh Abbott Work Phone: [facility] 01-21-2022 08:20-0500 Respiratory rate 16 /min Dr. Santhosh Abbott Work Phone: [facility] 01-21-2022 08:20-0500 SaO2% (BldA) [Mass fraction] 95 % Dr. Santhosh Abbott Work Phone: [facility] 01-21-2022 08:20-0500 Systolic blood pressure 134 mm[Hg] Dr. Santhosh Abbott Work Phone: [facility] 01-19-2022 10:14-0500 Body height 175.[address] Santhosh Abbott Work Phone: [facility] Work Phone: 01-19-2022 10:14-0500 Body weight 98.[address] Santhosh Abbott Work Phone: [facility] 01-19-2022 07:41-0500 Body mass index (BMI) [Ratio] 32.1 kg/m2 Dr. Santhosh Abbott Work Phone: [facility] 01-19-2022 07:01-0500 Body temperature 98.2 [degF] Dr. Santhosh Abbott Work Phone: [facility] Work Phone: 01-19-2022 07:01-0500 Diastolic blood pressure 75 mm[Hg] Dr. Santhosh Abbott Work Phone: [facility] Work Phone: 01-19-2022 07:01-0500 Heart rate 74 /min Dr. Santhosh Abbott Work Phone: [facility] Work Phone: 01-19-2022 07:01-0500 Respiratory rate 15 /min Dr. Santhosh Abbott Work Phone: [facility] Work Phone: 01-19-2022 07:01-0500 SaO2% (BldA) [Mass fraction] 97 % Dr. Santhosh Abbott Work Phone: [facility] Work Phone: 01-19-2022 07:01-0500 Systolic blood pressure 106 mm[Hg] Dr. Santhosh Abbott Work Phone: [facility] Work Phone: 01-19-2022 04:09-0500 Body height 175.[address] Santhosh Abbott Work Phone: [facility] Work Phone: 01-19-2022 04:09-0500 Body mass index (BMI) [Ratio] 32.5 kg/m2 Dr. Santhosh Abbott Work Phone: [facility] Work Phone: 01-19-2022 04:09-0500 Body weight 100.[address] Santhosh Abbott Work Phone: [facility] Work Phone: 01-01-2022 15:09-0400 Body weight 103.[address] Santhosh Abbott Work Phone: [facility] 12-17-2021 14:46-0400 Body height 175.[address] Santhosh Abbott Work Phone: [facility] Work Phone: 12-17-2021 14:46-0400 Body mass index (BMI) [Ratio] 36 kg/m2 Dr. Santhosh Abbott Work Phone: [facility] 12-17-2021 14:46-0400 Body temperature 98.2 [degF] Dr. Santhosh Abbott Work Phone: [facility] 12-17-2021 14:46-0400 Body weight 110.[address] Santhosh Abbott Work Phone: [facility] 12-17-2021 14:46-0400 Diastolic blood pressure 88 mm[Hg] Dr. Santhosh Abbott Work Phone: [facility] 12-17-2021 14:46-0400 Heart rate 82 /min Dr. Santhosh Abbott Work Phone: [facility] 12-17-2021 14:46-0400 Respiratory rate 14 /min Dr. Santhosh Abbott Work Phone: [facility] 12-17-2021 14:46-0400 SaO2% (BldA) [Mass fraction] 103 % Dr. Santhosh Abbtot Work Phone: [facility] 12-17-2021 14:46-0400 Systolic blood pressure 132 mm[Hg] Dr. Santhosh Abbott Work Phone: [facility] 12-15-2021 13:57-0400 Body temperature 98.5 [degF] Dr. Santhosh Abbott Work Phone: [facility] 12-15-2021 13:57-0400 Diastolic blood pressure 78 mm[Hg] Dr. Santhosh Abbott Work Phone: [facility] 12-15-2021 13:57-0400 Heart rate 122 /min Dr. Santhosh Abbott Work Phone: [facility] 12-15-2021 13:57-0400 Respiratory rate 14 /min Dr. Santhosh Abbott Work Phone: [facility] 12-15-2021 13:57-0400 SaO2% (BldA) [Mass fraction] 96 % Dr. Santhosh Abbott Work Phone: [facility] 12-15-2021 13:57-0400 Systolic blood pressure 128 mm[Hg] Dr. Santhosh Abbott Work Phone: [facility] 06-04-2021 11:09-0400 Body height 175.[address] Santhosh Abbott Work Phone: [facility] Work Phone: 06-04-2021 11:09-0400 Body mass index (BMI) [Ratio] 36.1 kg/m2 Dr. Santhosh Abbott Work Phone: [facility] Work Phone: 06-04-2021 11:09-0400 Body temperature 95.8 [degF] Dr. Santhosh Abbott Work Phone: [facility] Work Phone: 06-04-2021 11:09-0400 Body weight 110.[address] Santhosh Abbott Work Phone: [facility] Work Phone: 06-04-2021 11:09-0400 Diastolic blood pressure 80 mm[Hg] Dr. Santhosh Abbott Work Phone: [facility] Work Phone: 06-04-2021 11:09-0400 Heart rate 103 /min Dr. Santhosh Abbott Work Phone: [facility] Work Phone: 06-04-2021 11:09-0400 Respiratory rate 16 /min Dr. Santhosh Abbott Work Phone: [facility] Work Phone: 06-04-2021 11:09-0400 SaO2% (BldA) [Mass fraction] 97 % Dr. Santhosh Abbott Work Phone: [facility] Work Phone: 06-04-2021 11:09-0400 Systolic blood pressure 128 mm[Hg] Dr. Santhosh Abbott Work Phone: [facility] Work Phone: 01-25-2018 11:18-0500 BMI (Body Mass Index) 35.52 kg/m2 Cher Camilla [facility] Internal Medicine Work Phone: 01-25-2018 11:18-0500 Body Temperature 96.8 [degF] Cher Camilla [facility] Internal Medicine Work Phone: Comment on above: Method: Temporal 01-25-2018 11:18-0500 BP Diastolic 88 mm[Hg] Cher Camilla [facility] Internal [facility] Work Phone: Comment on above: Patient Position: Sitting; Cuff Location : Left Arm; Cuff Size: Standard 01-25-2018 11:18-0500 BP Systolic 138 mm[Hg] Cher Sampson [facility] Work Phone: Comment on above: Patient Position: Sitting; Cuff Location : Left Arm; Cuff Size: Standard 01-25-2018 11:18-0500 BSA (Body Surface Area) 2.23 m2 Cher Sampson [facility] Work Phone: 01-25-2018 11:18-0500 Height 175.26 cm Cher Sampson [facility] Work Phone: 01-25-2018 11:18-0500 Pulse (Heart Rate) 80 /min Cher Sampson [facility] Work Phone: Comment on above: Pattern: Regular 01-25-2018 11:18-0500 Pulse Oximetry 95 % Cher Sampson [facility] Medicine Work Phone: Comment on above: Room air 01-25-2018 11:18-0500 Respiratory Rate 16 /min Cher Sampson [facility] Work Phone: Comment on above: Pattern: Unlabored 01-25-2018 11:18-0500 Weight 109.09 kg Cher Sampson [facility] Work Phone: 01-25-2018 11:12-0500 BMI (Body Mass Index) 35.2 kg/m2 [facility] Work Phone: 01-25-2018 11:12-0500 BSA (Body Surface Area) 2.23 m2 Cher Sampson [facility] Work Phone: 01-25-2018 11:12-0500 Height 175.26 cm Cher Sampson [facility] Work Phone: 01-25-2018 11:12-0500 Weight 108.13 kg Cher Sampson [facility] Work Phone: 10-21-2017 08:11-0400 BMI (Body Mass Index) 35.2 kg/m2 Cher Sampson [facility] Work Phone: 10-21-2017 08:11-0400 Body Temperature 97 [degF] Cher Sampson [facility] Work Phone: Comment on above: Method: Temporal 10-21-2017 08:11-0400 BP Diastolic 88 mm[Hg] Cher Sampson [facility] Work Phone: Comment on above: Patient Position: Sitting; Cuff Location : Left Arm; Cuff Size: Standard 10-21-2017 08:11-0400 BP Systolic 152 mm[Hg] Cher Sampson [facility] Work Phone: Comment on above: Patient Position: Sitting; Cuff Location : Left Arm; Cuff Size: Standard 10-21-2017 08:11-0400 BSA (Body Surface Area) 2.23 m2 Cher Sampson [facility] Work Phone: 10-21-2017 08:11-0400 Height 175.26 cm Cher Sampson [facility] Work Phone: 10-21-2017 08:11-0400 Pulse (Heart Rate) 101 /min Cher Sampson [facility] Work Phone: Comment on above: Pattern: Regular 10-21-2017 08:11-0400 Pulse Oximetry 97 % Cher Sampson [facility] Work Phone: Comment on above: Room air 10-21-2017 08:11-0400 Respiratory Rate 18 /min Cher Sampson [facility] Work Phone: Comment on above: Pattern: Unlabored 10-21-2017 08:11-0400 Weight 108.13 kg Cher Sampson [facility] Work Phone: 06-16-2017 10:34-0400 BMI (Body Mass Index) 35.2 kg/m2 Cher Sampson [facility] Internal [facility] Work Phone: 06-16-2017 10:34-0400 Body Temperature 96.9 [degF] Cher Sampson [facility] Work Phone: 06-16-2017 10:34-0400 BP Diastolic 84 mm[Hg] Cher Sampson [facility] Work Phone: Comment on above: Patient Position: Sitting; Cuff Location : Left Arm; Cuff Size: Standard 06-16-2017 10:34-0400 BP Systolic 122 mm[Hg] [facility] Work Phone: Comment on above: Patient Position: Sitting; Cuff Location : Left Arm; Cuff Size: Standard 06-16-2017 10:34-0400 BSA (Body Surface Area) 2.23 m2 [facility] Work Phone: 06-16-2017 10:34-0400 Height 175.26 cm Cher [facility] Internal Medicine Work Phone: 06-16-2017 10:34-0400 Pulse (Heart Rate) 87 /min [facility] Medicine Work Phone: Comment on above: Pattern: Regular 06-16-2017 10:34-0400 Pulse Oximetry 96 % Cher Sampson [facility] Work Phone: Comment on above: Room air 06-16-2017 10:34-0400 Respiratory Rate 17 /min [facility] Work Phone: Comment on above: Pattern: Unlabored 06-16-2017 10:34-0400 Weight 108.13 kg Cher Sampson [facility] Work Phone: 10-13-2016 09:46-0400 BMI (Body Mass Index) 33.08 kg/m2 Florina Marcia [facility] Work Phone: 10-13-2016 09:46-0400 Body Temperature 97.9 [degF] Florina Marcia [facility] Work Phone: 10-13-2016 09:46-0400 BP Diastolic 90 mm[Hg] Florina Griffithsjeff SM[facility] Work Phone: 10-13-2016 09:46-0400 BP Systolic 141 mm[Hg] Florina Griffithsjeff SM[facility] Work Phone: 10-13-2016 09:46-0400 Height 177.8 cm Florina Marcia [facility] Work Phone: 10-13-2016 09:46-0400 Pulse (Heart Rate) 96 /min Florina Kennedy LPN [facility] Work Phone: 10-13-2016 09:46-0400 Respiratory Rate 15 /min Florina Kennedy LPN [facility] Work Phone: 10-13-2016 09:46-0400 Weight 104.6 kg Florina Kennedy LPN [facility] Work Phone: 10-13-2016 09:34-0400 BMI (Body Mass Index) 33.08 kg/m2 Patricia Trent LPN [facility] Work Phone: 10-13-2016 09:34-0400 Body Temperature 97.9 [degF] Patricia Trent LPN [facility] Work Phone: 10-13-2016 09:34-0400 BP Diastolic 90 mm[Hg] Patricia Trent LPN [facility] Work Phone: 10-13-2016 09:34-0400 BP Systolic 141 mm[Hg] Patricia Trent LPN [facility] Work Phone: 10-13-2016 09:34-0400 Height 177.8 cm Patricia Trent LPN [facility] Work Phone: 10-13-2016 09:34-0400 Pulse (Heart Rate) 96 /min Patricia Trent LPN [facility] Work Phone: 10-13-2016 09:34-0400 Respiratory Rate 15 /min Patricia Trent LPN [facility] Work Phone: 10-13-2016 09:34-0400 Weight 104.6 kg Patricia Trent LPN [facility] Work Phone: 07-09-2016 14:31-0400 BMI (Body Mass Index) 33.84 kg/m2 [facility] Work Phone: 07-09-2016 14:31-0400 Body Temperature 97.9 [degF] [facility] Work Phone: 07-09-2016 14:31-0400 BP Diastolic 76 mm[Hg] Cher Sampson [facility] Medicine Work Phone: Comment on above: Patient Position: Sitting; Cuff Location : Left Arm; Cuff Size: Standard 07-09-2016 14:31-0400 BP Systolic 118 mm[Hg] Cher Sampson [facility] Work Phone: Comment on above: Patient Position: Sitting; Cuff Location : Left Arm; Cuff Size: Standard 07-09-2016 14:31-0400 BSA (Body Surface Area) 2.19 m2 Cher Sampson [facility] Medicine Work Phone: 07-09-2016 14:31-0400 Height 175.26 cm Cher Sampson [facility] Work Phone: 07-09-2016 14:31-0400 Pulse (Heart Rate) 91 /min Cher Sampson [facility] Work Phone: Comment on above: Pattern: Regular 07-09-2016 14:31-0400 Pulse Oximetry 96 % Cher Sampson [facility] Internal Medicine Work Phone: Comment on above: Room air 07-09-2016 14:31-0400 Respiratory Rate 17 /min Cher Sampson [facility] Internal Medicine Work Phone: Comment on above: Pattern: Unlabored 07-09-2016 14:31-0400 Weight 103.93 kg Cher Sampson [facility] Internal Medicine Work Phone: 07-03-2016 09:22-0400 BMI (Body Mass Index) 33 kg/m2 Donnie [facility] Now in Work Phone: 07-03-2016 09:22-0400 Body Temperature 97.7 [degF] Donnie S[facility]OMAYOR [facility] Work Phone: 07-03-2016 09:22-0400 BP Diastolic 92 mm[Hg] Donnie [facility]OMAYOR [facility] Work Phone: 07-03-2016 09:22-0400 BP Systolic 142 mm[Hg] Donnie [facility]OMAYOR [facility] Work Phone: 07-03-2016 09:22-0400 Height 177.8 cm Donnie Matafernando [facility] Work Phone: 07-03-2016 09:22-0400 Pulse (Heart Rate) 73 /min Donnie Guzmán [facility] Work Phone: 07-03-2016 09:22-0400 Pulse Oximetry 98 % Donnie Guzmán [facility] Work Phone: 07-03-2016 09:22-0400 Respiratory Rate 12 /min Donnie Matafernando [facility] Work Phone: 07-03-2016 09:22-0400 Weight 104.33 kg Donnie Guzmán [facility] Work Phone: 11-30-2015 11:37-0400 BMI (Body Mass Index) 34.76 kg/m2 [facility] Internal Medicine Work Phone: 11-30-2015 11:37-0400 Body Temperature 97.1 [degF] [facility] Internal Medicine Work Phone: 11-30-2015 11:37-0400 BP Diastolic 80 mm[Hg] [facility] Internal Medicine Work Phone: Comment on above: Patient Position: Sitting; Cuff Location : Left Arm; Cuff Size: Standard 11-30-2015 11:37-0400 BP Systolic 118 mm[Hg] [facility] Internal Medicine Work Phone: Comment on above: Patient Position: Sitting; Cuff Location : Left Arm; Cuff Size: Standard 11-30-2015 11:37-0400 BSA (Body Surface Area) 2.21 m2 [facility] Internal Medicine Work Phone: 11-30-2015 11:37-0400 Height 175.26 cm [facility] Internal Medicine Work Phone: 11-30-2015 11:37-0400 Pulse (Heart Rate) 86 /min [facility] Internal Medicine Work Phone: Comment on above: Pattern: Regular 11-30-2015 11:37-0400 Pulse Oximetry 96 % Cher Sampson [facility] Internal Medicine Work Phone: Comment on above: Room air 11-30-2015 11:37-0400 Respiratory Rate 18 /min Cher Sampson [facility] Internal Medicine Work Phone: Comment on above: Pattern: Unlabored 11-30-2015 11:37-0400 Weight 106.77 kg Cher Sampson [facility] Internal Medicine Work Phone: 11-16-2015 10:31-0400 BMI (Body Mass Index) 34.76 kg/m2 Cher Sampson [facility] Internal Medicine Work Phone: 11-16-2015 10:31-0400 Body Temperature 97.4 [degF] Cher Sampson [facility] Internal Medicine Work Phone: 11-16-2015 10:31-0400 BP Diastolic 72 mm[Hg] Cher Sampson [facility] Internal Medicine Work Phone: Comment on above: Patient Position: Sitting; Cuff Location : Left Arm; Cuff Size: Standard 11-16-2015 10:31-0400 BP Systolic 116 mm[Hg] Cher Sampson [facility] Internal Medicine Work Phone: Comment on above: Patient Position: Sitting; Cuff Location : Left Arm; Cuff Size: Standard 11-16-2015 10:31-0400 BSA (Body Surface Area) 2.21 m2 Cher Sampson [facility] Internal Medicine Work Phone: 11-16-2015 10:31-0400 Height 175.26 cm Cher Sampson [facility] Internal Medicine Work Phone: 11-16-2015 10:31-0400 Pulse (Heart Rate) 85 /min Cher Sampson [facility] Internal Medicine Work Phone: Comment on above: Pattern: Regular 11-16-2015 10:31-0400 Pulse Oximetry 95 % Cher Sampson [facility] Internal Medicine Work Phone: Comment on above: Room air 11-16-2015 10:31-0400 Respiratory Rate 16 /min Cher Sampson [facility] Internal Medicine Work Phone: Comment on above: Pattern: Unlabored 11-16-2015 10:31-0400 Weight 106.77 kg Cher Sampson [facility] Internal Medicine Work Phone: 10-19-2015 11:19-0400 BMI (Body Mass Index) 34.76 kg/m2 [facility] Work Phone: 10-19-2015 11:190400 Body Temperature 97.9 [degF] Cher Sampson [facility] Internal Medicine Work Phone: 10-19-2015 11:19-0400 BP Diastolic 82 mm[Hg] Cher Sampson [facility] Internal Medicine Work Phone: Comment on above: Patient Position: Sitting; Cuff Location : Left Arm; Cuff Size: Standard 10-19-2015 11:190400 BP Systolic 118 mm[Hg] Cher Sampson [facility] Internal Medicine Work Phone: Comment on above: Patient Position: Sitting; Cuff Location : Left Arm; Cuff Size: Standard 10-19-2015 11:190400 BSA (Body Surface Area) 2.21 m2 Cher Sampson [facility] Internal Medicine Work Phone: 10-19-2015 11:190400 Height 175.26 cm Cher Sampson [facility] Internal Medicine Work Phone: 10-19-2015 11:19-0400 Pulse (Heart Rate) 86 /min Cher Sampson [facility] Internal Medicine Work Phone: Comment on above: Pattern: Regular 10-19-2015 11:19-0400 Pulse Oximetry 96 % Cher Sampson [facility] Internal Medicine Work Phone: Comment on above: Room air 10-19-2015 11:19-0400 Respiratory Rate 17 /min Cher Sampson [facility] Internal Medicine Work Phone: Comment on above: Pattern: Unlabored 10-19-2015 11:19-0400 Weight 106.77 kg Cher Sampson [facility] Internal Medicine Work Phone: 04-24-2015 10:58-0500 BMI (Body Mass Index) 34.17 kg/m2 Cher Malone [facility] Internal Medicine Work Phone: 04-24-2015 10:58-0500 Body Temperature 97.5 [degF] Cher Sampson [facility] Internal Medicine Work Phone: 04-24-2015 10:58-0500 BP Diastolic 100 mm[Hg] Cher Sampson [facility] Internal Medicine Work Phone: Comment on above: Patient Position: Sitting; Cuff Location : Left Arm; Cuff Size: Standard 04-24-2015 10:58-0500 BP Systolic 156 mm[Hg] Cher Sampson [facility] Internal Medicine Work Phone: Comment on above: Patient Position: Sitting; Cuff Location : Left Arm; Cuff Size: Standard 04-24-2015 10:58-0500 BSA (Body Surface Area) 2.2 m2 Cher Sampson [facility] Internal Medicine Work Phone: 04-24-2015 10:58-0500 Height 175.26 cm Cher Sampson [facility] Internal Medicine Work Phone: 04-24-2015 10:58-0500 Pulse (Heart Rate) 103 /min Cher Sampson [facility] Internal Medicine Work Phone: Comment on above: Pattern: Regular 04-24-2015 10:58-0500 Pulse Oximetry 95 % Cher Sampson [facility] Internal Medicine Work Phone: Comment on above: Room air 04-24-2015 10:58-0500 Respiratory Rate 18 /min Cher Sampson [facility] Internal Medicine Work Phone: Comment on above: Pattern: Unlabored 04-24-2015 10:58-0500 Weight 104.95 kg Cher Sampson [facility] Internal Medicine Work Phone: 04-10-2015 10:47-0500 BMI (Body Mass Index) 34.17 kg/m2 Cher Malone [facility] Internal Medicine Work Phone: 04-10-2015 10:47-0500 Body Temperature 97 [degF] Cher Sampson [facility] Internal Medicine Work Phone: 04-10-2015 10:47-0500 BP Diastolic 86 mm[Hg] [facility] Work Phone: Comment on above: Patient Position: Sitting; Cuff Location : Left Arm; Cuff Size: Standard 04-10-2015 10:47-0500 BP Systolic 138 mm[Hg] Cher Sampson [facility] Internal Medicine Work Phone: Comment on above: Patient Position: Sitting; Cuff Location : Left Arm; Cuff Size: Standard 04-10-2015 10:47-0500 BSA (Body Surface Area) 2.2 m2 Cher Sampson [facility] Internal Medicine Work Phone: 04-10-2015 10:47-0500 Height 175.26 cm Cher Sampson [facility] Internal Medicine Work Phone: 04-10-2015 10:47-0500 Pulse (Heart Rate) 110 /min Cher Sampson [facility] Internal Medicine Work Phone: Comment on above: Pattern: Regular 04-10-2015 10:47-0500 Pulse Oximetry 96 % Cher Sampson [facility] Internal Medicine Work Phone: Comment on above: Room air 04-10-2015 10:47-0500 Respiratory Rate 16 /min Cher Sampson [facility] Internal Medicine Work Phone: Comment on above: Pattern: Unlabored 04-10-2015 10:47-0500 Weight 104.95 kg Cher Sampson [facility] Internal Medicine Work Phone: 11-29-2014 10:01-0400 BMI (Body Mass Index) 33.96 kg/m2 Cher Sampson [facility] Internal Medicine Work Phone: 11-29-2014 10:01-0400 Body Temperature 97.3 [degF] Cher Sampson [facility] Internal Medicine Work Phone: 11-29-2014 10:01-0400 BP Diastolic 84 mm[Hg] Cher Sampson [facility] Internal Medicine Work Phone: Comment on above: Patient Position: Sitting; Cuff Location : Left Arm; Cuff Size: Standard 11-29-2014 10:01-0400 BP Systolic 120 mm[Hg] Cher Sampson [facility] Internal Medicine Work Phone: Comment on above: Patient Position: Sitting; Cuff Location : Left Arm; Cuff Size: Standard 11-29-2014 10:01-0400 BSA (Body Surface Area) 2.19 m2 Cher Sampson [facility] Internal Medicine Work Phone: 11-29-2014 10:01-0400 Height 175.26 cm Cher Sampson [facility] Internal Medicine Work Phone: 11-29-2014 10:01-0400 Pulse (Heart Rate) 93 /min Cher Sampson [facility] Internal Medicine Work Phone: Comment on above: Pattern: Regular 11-29-2014 10:01-0400 Pulse Oximetry 97 % Cher Sampson [facility] Internal Medicine Work Phone: Comment on above: Room air 11-29-2014 10:01-0400 Respiratory Rate 18 /min Cher Sampson [facility] Internal Medicine Work Phone: Comment on above: Pattern: Unlabored 11-29-2014 10:01-0400 Weight 104.33 kg Cher Sampson [facility] Internal Medicine Work Phone: 10-09-2014 11:32-0400 BMI (Body Mass Index) 33.49 kg/m2 Cher Sampson [facility] Internal Medicine Work Phone: 10-09-2014 11:32-0400 Body Temperature 98.1 [degF] Cher Sampson [facility] Internal Medicine Work Phone: Comment on above: Method: Temporal 10-09-2014 11:32-0400 BP Diastolic 78 mm[Hg] Cher Sampson [facility] Internal Medicine Work Phone: Comment on above: Patient Position: Sitting; Cuff Location : Left Arm; Cuff Size: Standard 10-09-2014 11:32-0400 BP Systolic 122 mm[Hg] Cher Sampson [facility] Internal Medicine Work Phone: Comment on above: Patient Position: Sitting; Cuff Location : Left Arm; Cuff Size: Standard 10-09-2014 11:32-0400 BSA (Body Surface Area) 2.18 m2 Cher Sampson [facility] Internal Medicine Work Phone: 10-09-2014 11:32-0400 Height 175.26 cm Cher Sampson [facility] Internal Medicine Work Phone: 10-09-2014 11:32-0400 Pulse (Heart Rate) 104 /min Cher Sampson [facility] Internal Medicine Work Phone: Comment on above: Pattern: Regular 10-09-2014 11:32-0400 Pulse Oximetry 98 % Cher Sampson [facility] Internal Medicine Work Phone: Comment on above: Room air 10-09-2014 11:32-0400 Respiratory Rate 17 /min Cher Sampson [facility] Internal Medicine Work Phone: Comment on above: Pattern: Unlabored 10-09-2014 11:32-0400 Weight 102.88 kg Cher Sampson [facility] Internal Medicine Work Phone: 05-15-2014 13:02-0400 BMI (Body Mass Index) 33.85 kg/m2 Cher Sampson [facility] Internal Medicine Work Phone: 05-15-2014 13:02-0400 Body Temperature 99.6 [degF] Cher Sampson [facility] Internal Medicine Work Phone: Comment on above: Method: Oral 05-15-2014 13:02-0400 BP Diastolic 80 mm[Hg] Cher Sampson [facility] Internal Medicine Work Phone: Comment on above: Patient Position: Sitting; Cuff Location : Left Arm; Cuff Size: Standard 05-15-2014 13:02-0400 BP Systolic 120 mm[Hg] Cher Sampson [facility] Internal Medicine Work Phone: Comment on above: Patient Position: Sitting; Cuff Location : Left Arm; Cuff Size: Standard 05-15-2014 13:02-0400 BSA (Body Surface Area) 2.19 m2 Cher Sampson [facility] Internal Medicine Work Phone: 05-15-2014 13:02-0400 Height 175.26 cm Cher Sampson [facility] Internal Medicine Work Phone: 05-15-2014 13:02-0400 Pulse (Heart Rate) 90 /min Cher Sampson [facility] Internal Medicine Work Phone: Comment on above: Pattern: Regular 05-15-2014 13:02-0400 Pulse Oximetry 96 % Chre Sampson [facility] Internal Medicine Work Phone: Comment on above: Room air 05-15-2014 13:02-0400 Weight 103.99 kg Cher Sampson [facility] Internal Medicine Work Phone: 08-16-2013 10:59-0400 BMI (Body Mass Index) 33.85 kg/m2 Cher Malone [facility] Internal Medicine Work Phone: 08-16-2013 10:59-0400 BP Diastolic 90 mm[Hg] Cher Sampson [facility] Internal Medicine Work Phone: Comment on above: Patient Position: Sitting; Cuff Location : Left Arm; Cuff Size: Standard 08-16-2013 10:59-0400 BP Systolic 119 mm[Hg] Cher Sampson [facility] Internal Medicine Work Phone: Comment on above: Patient Position: Sitting; Cuff Location : Left Arm; Cuff Size: Standard 08-16-2013 10:59-0400 BSA (Body Surface Area) 2.19 m2 Cher Sampson [facility] Internal Medicine Work Phone: 08-16-2013 10:59-0400 Height 175.26 cm Cehr Sampson [facility] Internal Medicine Work Phone: 08-16-2013 10:59-0400 Pulse (Heart Rate) 90 /min Cher Sampson [facility] Internal Medicine Work Phone: Comment on above: Pattern: Regular 08-16-2013 10:59-0400 Pulse Oximetry 97 % Cher Sampson [facility] Internal Medicine Work Phone: Comment on above: Room air 08-16-2013 10:59-0400 Respiratory Rate 16 /min Cher Sampson [facility] Internal Medicine Work Phone: Comment on above: Pattern: Unlabored 08-16-2013 10:59-0400 Weight 103.99 kg Cher Sampson [facility] Internal Medicine Work Phone: 02-04-2013 10:01-0500 BMI (Body Mass Index) 30.75 kg/m2 Cher Malone [facility] Internal Medicine Work Phone: 02-04-2013 10:01-0500 Body Temperature 98.6 [degF] Cher Sampson [facility] Internal Medicine Work Phone: Comment on above: Method: Oral 02-04-2013 10:01-0500 BP Diastolic 78 mm[Hg] Cher Sampson [facility] Internal Medicine Work Phone: Comment on above: Patient Position: Sitting; Cuff Location : Left Arm; Cuff Size: Standard 02-04-2013 10:01-0500 BP Systolic 126 mm[Hg] Cher Sampson [facility] Internal Medicine Work Phone: Comment on above: Patient Position: Sitting; Cuff Location : Left Arm; Cuff Size: Standard 02-04-2013 10:01-0500 BSA (Body Surface Area) 2.1 m2 Cher Sampson [facility] Internal Medicine Work Phone: 02-04-2013 10:01-0500 Height 175.26 cm Cher Sampson [facility] Internal Medicine Work Phone: 02-04-2013 10:01-0500 Pulse (Heart Rate) 82 /min Chre Sampson [facility] Internal Medicine Work Phone: Comment on above: Pattern: Regular 02-04-2013 10:01-0500 Pulse Oximetry 97 % Cher Sampson [facility] Internal Medicine Work Phone: Comment on above: Room air 02-04-2013 10:01-0500 Respiratory Rate 18 /min Cher Sampson [facility] Internal Medicine Work Phone: 02-04-2013 10:01-0500 Weight 94.46 kg Cher Sampson [facility] Internal Medicine Work Phone: 01-10-2013 09:04-0500 BMI (Body Mass Index) 30.75 kg/m2 Cher Sampson [facility] Internal Medicine Work Phone: 01-10-2013 09:04-0500 Body Temperature 97.3 [degF] Cher Sampson [facility] Internal Medicine Work Phone: Comment on above: Method: Temporal 01-10-2013 09:04-0500 BP Diastolic 88 mm[Hg] Cher Sampson [facility] Internal Medicine Work Phone: Comment on above: Patient Position: Sitting; Cuff Location : Left Arm; Cuff Size: Standard 01-10-2013 09:04-0500 BP Systolic 130 mm[Hg] Cher Sampson [facility] Internal Medicine Work Phone: Comment on above: Patient Position: Sitting; Cuff Location : Left Arm; Cuff Size: Standard 01-10-2013 09:04-0500 BSA (Body Surface Area) 2.1 m2 Cher Sampson [facility] Internal Medicine Work Phone: 01-10-2013 09:04-0500 Height 175.26 cm Cher Sampson [facility] Internal Medicine Work Phone: 01-10-2013 09:04-0500 Pulse (Heart Rate) 78 /min Cher Sampson [facility] Internal Medicine Work Phone: Comment on above: Pattern: Regular 01-10-2013 09:04-0500 Respiratory Rate 18 /min Cher Sampson [facility] Internal Medicine Work Phone: Comment on above: Pattern: Unlabored 01-10-2013 09:04-0500 Weight 94.46 kg Cher Sampson [facility] Internal Medicine Work Phone: 06-30-2012 10:57-0400 BMI (Body Mass Index) 30.75 kg/m2 Cher Sampson [facility] Internal Medicine Work Phone: 06-30-2012 10:57-0400 Body Temperature 98.2 [degF] [facility] Work Phone: Comment on above: Method: Oral 06-30-2012 10:57-0400 BP Diastolic 78 mm[Hg] Cher Sampson [facility] Internal Medicine Work Phone: Comment on above: Patient Position: Sitting; Cuff Location : Left Arm; Cuff Size: Standard 06-30-2012 10:57-0400 BP Systolic 126 mm[Hg] [facility] Work Phone: Comment on above: Patient Position: Sitting; Cuff Location : Left Arm; Cuff Size: Standard 06-30-2012 10:57-0400 BSA (Body Surface Area) 2.1 m2 [facility] Work Phone: 06-30-2012 10:57-0400 Height 175.26 cm Cher Sampson [facility] Internal Medicine Work Phone: 06-30-2012 10:57-0400 Pulse (Heart Rate) 88 /min Cher Sampson [facility] Internal Medicine Work Phone: Comment on above: Pattern: Regular 06-30-2012 10:57-0400 Pulse Oximetry 98 % Cher Sampson [facility] Internal Medicine Work Phone: Comment on above: Room air 06-30-2012 10:57-0400 Weight 94.46 kg Cher Sampson [facility] Internal Medicine Work Phone: 06-28-2012 10:23-0400 BMI (Body Mass Index) 30.75 kg/m2 Cher Sampson [facility] Internal Medicine Work Phone: 06-28-2012 10:23-0400 Body Temperature 97.8 [degF] Cher Sampson [facility] Internal Medicine Work Phone: Comment on above: Method: Temporal 06-28-2012 10:23-0400 BP Diastolic 82 mm[Hg] Cher Sampson [facility] Internal Medicine Work Phone: Comment on above: Patient Position: Sitting; Cuff Location : Left Arm; Cuff Size: Standard 06-28-2012 10:23-0400 BP Systolic 142 mm[Hg] Cher Sampson [facility] Internal Medicine Work Phone: Comment on above: Patient Position: Sitting; Cuff Location : Left Arm; Cuff Size: Standard 06-28-2012 10:23-0400 BSA (Body Surface Area) 2.1 m2 Cher Sampson [facility] Internal Medicine Work Phone: 06-28-2012 10:23-0400 Height 175.26 cm Cher Sampson [facility] Internal Medicine Work Phone: 06-28-2012 10:23-0400 Pulse (Heart Rate) 80 /min Cher Sampson [facility] Internal Medicine Work Phone: Comment on above: Pattern: Regular 06-28-2012 10:23-0400 Respiratory Rate 16 /min [facility] Work Phone: Comment on above: Pattern: Unlabored 06-28-2012 10:23-0400 Weight 94.46 kg Cher Sampson [facility] Internal Medicine Work Phone: 03-30-2012 08:55-0500 BMI (Body Mass Index) 30.75 kg/m2 [facility] Work Phone: 03-30-2012 08:55-0500 Body Temperature 98.2 [degF] Cher Sampson [facility] Internal Medicine Work Phone: Comment on above: Method: Oral 03-30-2012 08:55-0500 BP Diastolic 88 mm[Hg] Cher Sampson [facility] Internal Medicine Work Phone: Comment on above: Patient Position: Sitting; Cuff Location : Left Arm; Cuff Size: Standard 03-30-2012 08:55-0500 BP Systolic 140 mm[Hg] Cher Sampson [facility] Internal Medicine Work Phone: Comment on above: Patient Position: Sitting; Cuff Location : Left Arm; Cuff Size: Standard 03-30-2012 08:55-0500 BSA (Body Surface Area) 2.1 m2 Cher Sampson [facility] Internal Medicine Work Phone: 03-30-2012 08:55-0500 Height 175.26 cm Cher Sampson [facility] Internal Medicine Work Phone: 03-30-2012 08:55-0500 Pulse (Heart Rate) 84 /min Cher Sampson [facility] Internal Medicine Work Phone: Comment on above: Pattern: Regular 03-30-2012 08:55-0500 Respiratory Rate 18 /min Cher Sampson [facility] Internal Medicine Work Phone: Comment on above: Pattern: Unlabored 03-30-2012 08:55-0500 Weight 94.46 kg Cher Sampson [facility] Internal Medicine Work Phone: 12-22-2011 10:27-0400 BMI (Body Mass Index) 30.89 kg/m2 [facility] Work Phone: 12-22-2011 10:27-0400 Body Temperature 98.6 [degF] Cher Sampson [facility] Internal Medicine Work Phone: Comment on above: Method: Oral 12-22-2011 10:27-0400 BP Diastolic 74 mm[Hg] Cher Sampson [facility] Internal Medicine Work Phone: Comment on above: Patient Position: Sitting; Cuff Location : Left Arm; Cuff Size: Standard 12-22-2011 10:27-0400 BP Systolic 118 mm[Hg] Cher Sampson [facility] Internal Medicine Work Phone: Comment on above: Patient Position: Sitting; Cuff Location : Left Arm; Cuff Size: Standard 12-22-2011 10:27-0400 BSA (Body Surface Area) 2.11 m2 Cher Sampson [facility] Internal Medicine Work Phone: 12-22-2011 10:27-0400 Height 175.26 cm Cher Sampson [facility] Internal Medicine Work Phone: 12-22-2011 10:27-0400 Pulse (Heart Rate) 82 /min Cher Sampson [facility] Internal Medicine Work Phone: Comment on above: Pattern: Regular 12-22-2011 10:27-0400 Respiratory Rate 16 /min Cher Sampson [facility] Internal Medicine Work Phone: 12-22-2011 10:27-0400 Weight 94.89 kg Cher Sampson [facility] Internal Medicine Work Phone: 11-10-2011 10:41-0400 BMI (Body Mass Index) 29.75 kg/m2 Cher Sampson [facility] Internal Medicine Work Phone: 11-10-2011 10:41-0400 Body Temperature 98.6 [degF] Cher Sampson [facility] Internal Medicine Work Phone: Comment on above: Method: Oral 11-10-2011 10:41-0400 BP Diastolic 80 mm[Hg] Cher Sampson [facility] Internal Medicine Work Phone: Comment on above: Patient Position: Sitting; Cuff Location : Left Arm; Cuff Size: Standard 11-10-2011 10:41-0400 BP Systolic 132 mm[Hg] [facility] Work Phone: Comment on above: Patient Position: Sitting; Cuff Location : Left Arm; Cuff Size: Standard 11-10-2011 10:41-0400 BSA (Body Surface Area) 2.07 m2 Cher Sampson [facility] Internal Medicine Work Phone: 11-10-2011 10:41-0400 Height 175.26 cm Cher Sampson [facility] Internal Medicine Work Phone: 11-10-2011 10:41-0400 Pulse (Heart Rate) 95 /min Cher Sampson [facility] Internal Medicine Work Phone: Comment on above: Pattern: Regular 11-10-2011 10:41-0400 Pulse Oximetry 97 % Cher Sampson [facility] Internal Medicine Work Phone: Comment on above: Room air 11-10-2011 10:41-0400 Respiratory Rate 18 /min Cher Sampson [facility] Internal Medicine Work Phone: 11-10-2011 10:41-0400 Weight 91.37 kg Cher Sampson [facility] Internal Medicine Work Phone: 09-16-2011 09:10-0400 BMI (Body Mass Index) 29.75 kg/m2 Cher Sampson [facility] Internal Medicine Work Phone: 09-16-2011 09:10-0400 Body Temperature 98 [degF] Cher Sampson [facility] Internal Medicine Work Phone: Comment on above: Method: Oral 09-16-2011 09:10-0400 BP Diastolic 86 mm[Hg] [facility] Work [facility]: Comment on above: Patient Position: Sitting; Cuff Location : Left Arm; Cuff Size: Standard 09-16-2011 09:10-0400 BP Systolic 134 mm[Hg] [facility] Work Phone: Comment on above: Patient Position: Sitting; Cuff Location : Left Arm; Cuff Size: Standard 09-16-2011 09:10-0400 BSA (Body Surface Area) 2.07 m2 [facility] Work Phone: 09-16-2011 09:10-0400 Height 175.26 cm Cher Sampson [facility] Internal Medicine Work Phone: 09-16-2011 09:10-0400 Pulse (Heart Rate) 88 /min Cher Sampson [facility] Internal Medicine Work Phone: Comment on above: Pattern: Regular 09-16-2011 09:10-0400 Pulse Oximetry 96 % Cher Sampson [facility] Internal Medicine Work Phone: Comment on above: Room air 09-16-2011 09:10-0400 Respiratory Rate 16 /min Cher Sampson [facility] Internal Medicine Work Phone: 09-16-2011 09:10-0400 Weight 91.37 kg Cher Sampson [facility] Internal Medicine Work Phone: 05-28-2011 09:18-0400 BMI (Body Mass Index) 28.65 kg/m2 Cher Sampson [facility] Internal Medicine Work Phone: 05-28-2011 09:18-0400 Body Temperature 97 [degF] Cher Sampson [facility] Internal Medicine Work Phone: Comment on above: Method: Oral 05-28-2011 09:18-0400 BP Diastolic 78 mm[Hg] Cher Sampson [facility] Internal Medicine Work Phone: Comment on above: Patient Position: Sitting; Cuff Location : Left Arm; Cuff Size: Standard 05-28-2011 09:18-0400 BP Systolic 120 mm[Hg] [facility] Work Phone: Comment on above: Patient Position: Sitting; Cuff Location : Left Arm; Cuff Size: Standard 05-28-2011 09:18-0400 BSA (Body Surface Area) 2.04 m2 Cher Sampson [facility] Internal Medicine Work Phone: 05-28-2011 09:18-0400 Height 175.26 cm Cher Sampson [facility] Internal Medicine Work Phone: 05-28-2011 09:18-0400 Pulse (Heart Rate) 82 /min Cher Sampson [facility] Internal Medicine Work Phone: Comment on above: Pattern: Regular 05-28-2011 09:18-0400 Respiratory Rate 16 /min Cher Sampson [facility] Internal Medicine Work Phone: Comment on above: Pattern: Unlabored 05-28-2011 09:18-0400 Weight 88 kg Cher Sampson [facility] Internal Medicine Work Phone: 02-26-2011 09:12-0500 BMI (Body Mass Index) 31.73 kg/m2 Cher [facility] Internal Medicine Work Phone: 02-26-2011 09:12-0500 BP Diastolic 98 mm[Hg] Cher Sampson [facility] Internal Medicine Work Phone: Comment on above: Patient Position: Sitting; Cuff Location : Left Arm; Cuff Size: Large 02-26-2011 09:12-0500 BP Systolic 134 mm[Hg] Cher Sampson [facility] Internal Medicine Work Phone: Comment on above: Patient Position: Sitting; Cuff Location : Left Arm; Cuff Size: Large 02-26-2011 09:12-0500 BSA (Body Surface Area) 2.15 m2 Cher Sampson [facility] Internal Medicine Work Phone: 02-26-2011 09:12-0500 Height 176.53 cm Cher Sampson [facility] Internal Medicine Work Phone: 02-26-2011 09:12-0500 Pulse (Heart Rate) 88 /min Cher Sampson [facility] Internal Medicine Work Phone: Comment on above: Pattern: Regular 02-26-2011 09:12-0500 Respiratory Rate 14 /min Cher Sampson [facility] Internal Medicine Work Phone: Comment on above: Pattern: Unlabored 02-26-2011 09:12-0500 Weight 98.88 kg Cher Sampson [facility] Internal Medicine Work Phone: 02-11-2011 10:51-0500 BMI (Body Mass Index) 30.42 kg/m2 Cher Malone [facility] Internal Medicine Work Phone: 02-11-2011 10:51-0500 BP Diastolic 78 mm[Hg] Cher Sampson [facility] Internal Medicine Work Phone: Comment on above: Patient Position: Sitting; Cuff Location : Left Arm; Cuff Size: Standard 02-11-2011 10:51-0500 BP Systolic 144 mm[Hg] Cher Sampson [facility] Internal Medicine Work Phone: Comment on above: Patient Position: Sitting; Cuff Location : Left Arm; Cuff Size: Standard 02-11-2011 10:51-0500 BSA (Body Surface Area) 2.12 m2 Cher Sampson [facility] Internal Medicine Work Phone: 02-11-2011 10:51-0500 Height 176.53 [facility] Work Phone: 02-11-2011 10:51-0500 Pulse (Heart Rate) 70 /min [facility] Work Phone: Comment on above: Pattern: Regular 02-11-2011 10:51-0500 Respiratory Rate 17 /min Cher Sampson [facility] Internal Medicine Work Phone: 02-11-2011 10:51-0500 [facility] 94.[facility] Work [facility]: 01-29-2011 10:34-0500 BMI (Body Mass Index) 30.42 kg/m2 Cher Sampson [facility] Internal Medicine Work Phone: 01-29-2011 10:34-0500 Body Temperature 96.1 [degF] [facility] Work Phone: Comment on above: Method: Oral 01-29-2011 10:34-0500 BP Diastolic 92 mm[Hg] [facility] Work [facility]: Comment on above: Patient Position: Sitting; Cuff Location : Left Arm; Cuff Size: Standard 01-29-2011 10:34-0500 BP Systolic 146 mm[Hg] [facility] Work Phone: Comment on above: Patient Position: Sitting; Cuff Location : Left Arm; Cuff Size: Standard 01-29-2011 10:34-0500 BSA (Body Surface Area) 2.12 m2 [facility] Work Phone: 01-29-2011 10:34-0500 Height 176.53 cm Cher Sampson [facility] Internal Medicine Work Phone: 01-29-2011 10:34-0500 Pulse (Heart Rate) 88 /min Cher Sampson [facility] Internal Medicine Work Phone: Comment on above: Pattern: Regular 01-29-2011 10:34-0500 Pulse Oximetry 97 % Cher Sampson [facility] Internal Medicine Work Phone: Comment on above: Room air 01-29-2011 10:34-0500 Respiratory Rate 18 /min Cher Sampson [facility] Internal Medicine Work Phone: 01-29-2011 10:34-0500 Weight 94.8 kg Cher Sampson [facility] Internal Medicine Work Phone: 01-15-2011 11:03-0500 BMI (Body Mass Index) 30.42 kg/m2 Cher Sampson [facility] Internal Medicine Work Phone: 01-15-2011 11:03-0500 Body Temperature 98.2 [degF] Cher Sampson [facility] Internal Medicine Work Phone: Comment on above: Method: Oral 01-15-2011 11:03-0500 BP Diastolic 98 mm[Hg] Cher Sampson [facility] Internal Medicine Work Phone: Comment on above: Patient Position: Sitting; Cuff Location : Left Arm; Cuff Size: Standard 01-15-2011 11:03-0500 BP Systolic 158 mm[Hg] [facility] Work Phone: Comment on above: Patient Position: Sitting; Cuff Location : Left Arm; Cuff Size: Standard 01-15-2011 11:03-0500 BSA (Body Surface Area) 2.12 m2 Cher Sampson [facility] Internal Medicine Work Phone: 01-15-2011 11:03-0500 Height 176.53 cm Cher Sampson [facility] Internal Medicine Work Phone: 01-15-2011 11:03-0500 Pulse (Heart Rate) 86 /min Cher Sampson [facility] Internal Medicine Work Phone: Comment on above: Pattern: Regular 01-15-2011 11:03-0500 Pulse Oximetry 97 % Cher Sampson [facility] Internal Medicine Work Phone: Comment on above: Room air 01-15-2011 11:03-0500 Respiratory Rate 18 /min Cher Sampson [facility] Internal Medicine Work Phone: 01-15-2011 11:03-0500 Weight 94.8 kg Cher Sampson [facility] Internal Medicine Work Phone: 12-18-2010 10:36-0400 BMI (Body Mass Index) 30.42 kg/m2 Cher Sampson [facility] Internal Medicine Work Phone: 12-18-2010 10:36-0400 Body Temperature 97.9 [degF] Cher Sampson [facility] Internal Medicine Work Phone: Comment on above: Method: Oral 12-18-2010 10:36-0400 BP Diastolic 92 mm[Hg] Cher Sampson [facility] Internal Medicine Work Phone: Comment on above: Patient Position: Sitting; Cuff Location : Left Arm; Cuff Size: Large 12-18-2010 10:36-0400 BP Systolic 158 mm[Hg] Cher Sampson [facility] Internal Medicine Work Phone: Comment on above: Patient Position: Sitting; Cuff Location : Left Arm; Cuff Size: Large 12-18-2010 10:36-0400 BSA (Body Surface Area) 2.12 m2 Cher Sampson [facility] Internal Medicine Work Phone: 12-18-2010 10:36-0400 Height 176.53 cm Cher Sampson [facility] Internal Medicine Work Phone: 12-18-2010 10:36-0400 Pulse (Heart Rate) 68 /min Cher Sampson [facility] Internal Medicine Work Phone: Comment on above: Pattern: Regular 12-18-2010 10:36-0400 Respiratory Rate 20 /min Cher Sampson [facility] Internal Medicine Work Phone: Comment on above: Pattern: Unlabored 12-18-2010 10:36-0400 Weight 94.8 kg Cher Sampson [facility] Internal Medicine Work Phone: 11-06-2009 10:16-0400 Body Temperature 95.5 [degF] Cher Sampson [facility] Internal Medicine Work Phone: Comment on above: Method: Oral 11-06-2009 10:16-0400 BP Diastolic 84 mm[Hg] Cher Sampson [facility] Internal Medicine Work Phone: Comment on above: Patient Position: Sitting; Cuff Location : Left Arm; Cuff Size: Standard 11-06-2009 10:16-0400 BP Systolic 144 mm[Hg] Cher Sampson [facility] Internal Medicine Work Phone: Comment on above: Patient Position: Sitting; Cuff Location : Left Arm; Cuff Size: Standard 11-06-2009 10:16-0400 Pulse (Heart Rate) 70 /min Cher Sampson [facility] Internal Medicine Work Phone: Comment on above: Pattern: Regular 11-06-2009 10:16-0400 Respiratory Rate 17 /min Cher Sampson [facility] Internal Medicine Work Phone: Comment on above: Pattern: Unlabored 11-06-2009 10:16-0400 Weight 94.8 kg Cher Sampson [facility] Internal Medicine Work Phone: 10-12-2009 09:55-0400 Body Temperature 97.5 [degF] Cher Sampson [facility] Internal Medicine Work Phone: Comment on above: Method: Oral 10-12-2009 09:55-0400 BP Diastolic 82 mm[Hg] Cher Sampson [facility] Internal Medicine Work Phone: Comment on above: Patient Position: Sitting; Cuff Location : Left Arm; Cuff Size: Large 10-12-2009 09:55-0400 BP Systolic 140 mm[Hg] Cher Sampson [facility] Internal Medicine Work Phone: Comment on above: Patient Position: Sitting; Cuff Location : Left Arm; Cuff Size: Large 10-12-2009 09:55-0400 Pulse (Heart Rate) 96 /min Cher Sampson [facility] Internal Medicine Work Phone: Comment on above: Pattern: Regular 10-12-2009 09:55-0400 Respiratory Rate 16 /min [facility] Work Phone: Comment on above: Pattern: Unlabored 10-12-2009 09:55-0400 Weight 91.63 kg Cher Sampson [facility] Internal Medicine Work Phone: 09-04-2009 11:15-0400 Body Temperature 97 [degF] Cher Sampson [facility] Internal Medicine Work Phone: Comment on above: Method: Oral 09-04-2009 11:15-0400 BP Diastolic 86 mm[Hg] Cher Sampson [facility] Internal Medicine Work Phone: Comment on above: Patient Position: Sitting; Cuff Location : Left Arm; Cuff Size: Standard 09-04-2009 11:15-0400 BP Systolic 146 mm[Hg] Cher Sampson [facility] Internal Medicine Work Phone: Comment on above: Patient Position: Sitting; Cuff Location : Left Arm; Cuff Size: Standard 09-04-2009 11:15-0400 Pulse (Heart Rate) 74 /min Cher Sampson [facility] Internal Medicine Work Phone: Comment on above: Pattern: Regular 09-04-2009 11:15-0400 Respiratory Rate 16 /min Cher Sampson [facility] Internal Medicine Work Phone: Comment on above: Pattern: Unlabored 09-04-2009 11:15-0400 Weight 92.17 kg Cher Sampson [facility] Internal Medicine Work Phone: 08-28-2009 09:33-0400 Body Temperature 97 [degF] Cher Sampson [facility] Internal Medicine Work Phone: Comment on above: Method: Oral 08-28-2009 09:33-0400 BP Diastolic 84 mm[Hg] Cher Sampson [facility] Internal Medicine Work Phone: Comment on above: Patient Position: Sitting; Cuff Location : Left Arm; Cuff Size: Standard 08-28-2009 09:33-0400 BP Systolic 138 mm[Hg] Cher Sampson [facility] Internal Medicine Work Phone: Comment on above: Patient Position: Sitting; Cuff Location : Left Arm; Cuff Size: Standard 08-28-2009 09:33-0400 Pulse (Heart Rate) 74 /min Cher Sampson [facility] Internal Medicine Work Phone: Comment on above: Pattern: Regular 08-28-2009 09:33-0400 Respiratory Rate 17 /min Cher Sampson [facility] Internal Medicine Work Phone: Comment on above: Pattern: Unlabored 08-28-2009 09:33-0400 Weight 92.17 kg Cher Sampson [facility] Internal Medicine Work Phone: 08-17-2009 09:47-0400 Body Temperature 97.1 [degF] Cher Sampson [facility] Internal Medicine Work Phone: 08-17-2009 09:47-0400 BP Diastolic 92 mm[Hg] Cher Sampson [facility] Internal Medicine Work Phone: Comment on above: Patient Position: Sitting; Cuff Location : Left Arm; Cuff Size: Standard 08-17-2009 09:47-0400 BP Systolic 158 mm[Hg] Cher Sampson [facility] Internal Medicine Work Phone: Comment on above: Patient Position: Sitting; Cuff Location : Left Arm; Cuff Size: Standard 08-17-2009 09:47-0400 Pulse (Heart Rate) 80 /min Cher Sampson [facility] Internal Medicine Work Phone: Comment on above: Pattern: Regular 08-17-2009 09:47-0400 Respiratory Rate 18 /min Cher Sampson [facility] Internal Medicine Work Phone: Comment on above: Pattern: Unlabored 08-16-2009 09:27-0400 Body Temperature 97 [degF] Cher Sampson [facility] Internal Medicine Work Phone: Comment on above: Method: Oral 08-16-2009 09:27-0400 BP Diastolic 80 mm[Hg] Cher Sampson [facility] Internal Medicine Work Phone: Comment on above: Patient Position: Sitting; Cuff Location : Left Arm; Cuff Size: Standard 08-16-2009 09:27-0400 BP Systolic 124 mm[Hg] Cher Sampson [facility] Internal Medicine Work Phone: Comment on above: Patient Position: Sitting; Cuff Location : Left Arm; Cuff Size: Standard 08-16-2009 09:27-0400 Pulse (Heart Rate) 76 /min Cher Sampson [facility] Internal Medicine Work Phone: Comment on above: Pattern: Regular 08-16-2009 09:27-0400 Respiratory Rate 16 /min Cher Sampson [facility] Internal Medicine Work Phone: Comment on above: Pattern: Unlabored 08-16-2009 09:27-0400 Weight 90.78 kg Cher Sampson [facility] Internal Medicine Work Phone: 08-15-2009 09:08-0400 Body Temperature 98.3 [degF] Cher Sampson [facility] Internal Medicine Work Phone: Comment on above: Method: Oral 08-15-2009 09:08-0400 BP Diastolic 84 mm[Hg] Cher Sampson [facility] Internal Medicine Work Phone: Comment on above: Patient Position: Sitting; Cuff Location : Left Arm; Cuff Size: Standard 08-15-2009 09:08-0400 BP Systolic 134 mm[Hg] Cher Sampson [facility] Internal Medicine Work Phone: Comment on above: Patient Position: Sitting; Cuff Location : Left Arm; Cuff Size: Standard 08-15-2009 09:08-0400 Pulse (Heart Rate) 80 /min Cher Sampson [facility] Internal Medicine Work Phone: Comment on above: Pattern: Regular 08-15-2009 09:08-0400 Respiratory Rate 17 /min Cher Sampson [facility] Internal Medicine Work Phone: Comment on above: Pattern: Unlabored 08-15-2009 09:08-0400 Weight 90.78 kg Cher Sampson [facility] Internal Medicine Work Phone: 08-14-2009 09:46-0400 Body Temperature 97 [degF] Cher Sampson [facility] Internal Medicine Work Phone: Comment on above: Method: Oral 08-14-2009 09:46-0400 BP Diastolic 78 mm[Hg] Cher Sampson [facility] Internal Medicine Work Phone: Comment on above: Patient Position: Sitting; Cuff Location : Left Arm; Cuff Size: Standard 08-14-2009 09:46-0400 BP Systolic 130 mm[Hg] Cher Sampson [facility] Internal Medicine Work Phone: Comment on above: Patient Position: Sitting; Cuff Location : Left Arm; Cuff Size: Standard 08-14-2009 09:46-0400 Pulse (Heart Rate) 78 /min Cher Sampson [facility] Internal Medicine Work Phone: Comment on above: Pattern: Regular 08-14-2009 09:46-0400 Respiratory Rate 17 /min Cher Sampson [facility] Internal Medicine Work Phone: Comment on above: Pattern: Unlabored 08-14-2009 09:46-0400 Weight 90.78 kg Cher Sampson [facility] Internal Medicine Work Phone: 08-13-2009 09:11-0400 Body Temperature 97.6 [degF] Cher Sampson [facility] Internal Medicine Work Phone: Comment on above: Method: Oral 08-13-2009 09:11-0400 BP Diastolic 82 mm[Hg] Cher Sampson [facility] Internal Medicine Work Phone: Comment on above: Patient Position: Sitting; Cuff Location : Left Arm; Cuff Size: Standard 08-13-2009 09:11-0400 BP Systolic 124 mm[Hg] Cher Sampson [facility] Internal Medicine Work Phone: Comment on above: Patient Position: Sitting; Cuff Location : Left Arm; Cuff Size: Standard 08-13-2009 09:11-0400 Pulse (Heart Rate) 80 /min Cher Sampson [facility] Internal Medicine Work Phone: Comment on above: Pattern: Regular 08-13-2009 09:11-0400 Respiratory Rate 16 /min Cher Sampson [facility] Internal Medicine Work Phone: Comment on above: Pattern: Unlabored 08-13-2009 09:11-0400 Weight 90.78 kg Cher Sampson [facility] Internal Medicine Work Phone: 02-07-2009 09:35-0500 Body Temperature 95.7 [degF] Cher Sampson [facility] Internal Medicine Work Phone: Comment on above: Method: Oral 02-07-2009 09:35-0500 BP Diastolic 84 mm[Hg] Cher Sampson [facility] Internal Medicine Work Phone: Comment on above: Patient Position: Sitting; Cuff Location : Left Arm; Cuff Size: Standard 02-07-2009 09:35-0500 BP Systolic 136 mm[Hg] Cher Sampson [facility] Internal Medicine Work Phone: Comment on above: Patient Position: Sitting; Cuff Location : Left Arm; Cuff Size: Standard 02-07-2009 09:35-0500 Head Circumference 0 [facility] Work Phone: 02-07-2009 09:35-0500 [facility] Work [facility]: 02-07-2009 09:35-0500 Pulse (Heart Rate) 80 /min [facility] Work Phone: Comment on above: Pattern: Regular 02-07-2009 09:35-0500 Respiratory Rate 18 /min [facility] Work Phone: Comment on above: Pattern: Unlabored 02-07-2009 09:35-0500 [facility] 0 [facility] Work Phone: 01-30-2009 09:09-0500 BMI (Body Mass Index) 25.54 kg/m2 Cher Sampson [facility] Internal Medicine Work Phone: 01-30-2009 09:09-0500 Body Temperature 99.6 [degF] [facility] Work Phone: Comment on above: Method: Oral 01-30-2009 09:09-0500 BP Diastolic 82 mm[Hg] [facility] Work [facility]: Comment on above: Patient Position: Sitting; Cuff Location : Left Arm; Cuff Size: Standard 01-30-2009 09:09-0500 BP Systolic 128 mm[Hg] [facility] Work Phone: Comment on above: Patient Position: Sitting; Cuff Location : Left Arm; Cuff Size: Standard 01-30-2009 09:09-0500 BSA (Body Surface Area) 1.99 m2 [facility] Work Phone: 01-30-2009 09:09-0500 Head Circumference 0 cm Cher Sampson [facility] Internal Medicine Work Phone: 01-30-2009 09:09-0500 Height 177.8 cm Cehr Sampson [facility] Internal Medicine Work Phone: 01-30-2009 09:09-0500 Pulse (Heart Rate) 82 /min Cher Sampson [facility] Internal Medicine Work Phone: Comment on above: Pattern: Regular 01-30-2009 09:09-0500 Respiratory Rate 17 /min Cher Sampson [facility] Internal Medicine Work Phone: Comment on above: Pattern: Unlabored 01-30-2009 09:09-0500 Weight 80.74 kg Cher Sampson [facility] Internal Medicine Work Phone: 01-16-2009 10:33-0500 BMI (Body Mass Index) 25.54 kg/m2 Cher Sampson [facility] Internal Medicine Work Phone: 01-16-2009 10:33-0500 Body Temperature 97 [degF] Cher Sampson [facility] Internal Medicine Work Phone: Comment on above: Method: Oral 01-16-2009 10:33-0500 BP Diastolic 80 mm[Hg] Cher Sampson [facility] Internal Medicine Work Phone: Comment on above: Patient Position: Sitting; Cuff Location : Left Arm; Cuff Size: Standard 01-16-2009 10:33-0500 BP Systolic 136 mm[Hg] Cher Sampson [facility] Internal Medicine Work Phone: Comment on above: Patient Position: Sitting; Cuff Location : Left Arm; Cuff Size: Standard 01-16-2009 10:33-0500 BSA (Body Surface Area) 1.99 m2 Cher Sampson [facility] Internal Medicine Work Phone: 01-16-2009 10:33-0500 Head Circumference 0 cm Cher Sampson [facility] Internal Medicine Work Phone: 01-16-2009 10:33-0500 Height 177.8 cm Cher Sampson [facility] Internal Medicine Work Phone: 01-16-2009 10:33-0500 Pulse (Heart Rate) 84 /min Cher Sampson [facility] Internal Medicine Work Phone: Comment on above: Pattern: Regular 01-16-2009 10:33-0500 Respiratory Rate 16 /min Cher Sampson [facility] Internal Medicine Work Phone: Comment on above: Pattern: Unlabored 01-16-2009 10:33-0500 Weight 80.74 kg Cher Sampson [facility] Internal Medicine Work Phone: 02-09-2008 09:13-0500 BMI (Body Mass Index) 25.54 kg/m2 Cher Sampson [facility] Internal Medicine Work Phone: 02-09-2008 09:13-0500 Body Temperature 97.8 [degF] Cher Sampson [facility] Internal Medicine Work Phone: Comment on above: Method: Oral 02-09-2008 09:13-0500 BP Diastolic 102 mm[Hg] Cher Sampson [facility] Internal Medicine Work Phone: Comment on above: Patient Position: Sitting; Cuff Location : Left Arm; Cuff Size: Standard 02-09-2008 09:13-0500 BP Systolic 168 mm[Hg] Cher Sampson [facility] Internal Medicine Work Phone: Comment on above: Patient Position: Sitting; Cuff Location : Left Arm; Cuff Size: Standard 02-09-2008 09:13-0500 BSA (Body Surface Area) 1.99 m2 Cher Sampson [facility] Internal Medicine Work Phone: 02-09-2008 09:13-0500 Head Circumference 0 cm Cher Sampson [facility] Internal Medicine Work Phone: 02-09-2008 09:13-0500 Height 177.8 cm Cher Sampson [facility] Internal Medicine Work Phone: 02-09-2008 09:13-0500 Pulse (Heart Rate) 78 /min Cher Sampson [facility] Internal Medicine Work Phone: Comment on above: Pattern: Regular 02-09-2008 09:13-0500 Respiratory Rate 18 /min [facility] [facility] Work Phone: Comment on above: Pattern: Unlabored 02-09-2008 09:13-0500 Weight 80.74 kg Cher Sampson [facility] Internal Medicine Work Phone: 09-15-2007 10:26-0400 BMI (Body Mass Index) 25.54 kg/m2 Cher Malone [facility] Internal Medicine Work Phone: 09-15-2007 10:26-0400 Body Temperature 97 [degF] Cher aSmpson [facility] Internal Medicine Work Phone: Comment on above: Method: Oral 09-15-2007 10:26-0400 BP Diastolic 84 mm[Hg] Cher Sampson [facility] Internal Medicine Work Phone: Comment on above: Patient Position: Sitting; Cuff Location : Left Arm; Cuff Size: Standard 09-15-2007 10:26-0400 BP Systolic 130 mm[Hg] Cher Sampson [facility] Internal Medicine Work Phone: Comment on above: Patient Position: Sitting; Cuff Location : Left Arm; Cuff Size: Standard 09-15-2007 10:26-0400 BSA (Body Surface Area) 1.99 m2 Cher Sampson [facility] Internal Medicine Work Phone: 09-15-2007 10:26-0400 Head Circumference 0 cm Cher Sampson [facility] Internal Medicine Work Phone: 09-15-2007 10:26-0400 Height 177.8 cm Cher Sampson [facility] Internal Medicine Work Phone: 09-15-2007 10:26-0400 Pulse (Heart Rate) 72 /min Cher Sampson [facility] Internal Medicine Work Phone: Comment on above: Pattern: Regular 09-15-2007 10:26-0400 Respiratory Rate 18 /min Cehr Sampson [facility] Internal Medicine Work Phone: Comment on above: Pattern: Unlabored 09-15-2007 10:26-0400 Weight 80.74 kg Cher Sampson [facility] Internal Medicine Work Phone: 12-28-2006 11:11-0400 BMI (Body Mass Index) 25.54 kg/m2 Cher Malone [facility] Internal Medicine Work Phone: 12-28-2006 11:11-0400 Body Temperature 98 [degF] Cher Sampson [facility] Internal Medicine Work Phone: Comment on above: Method: Oral 12-28-2006 11:11-0400 BP Diastolic 78 mm[Hg] Cher Sampson [facility] Internal Medicine Work Phone: Comment on above: Patient Position: Sitting; Cuff Location : Left Arm; Cuff Size: Standard 12-28-2006 11:11-0400 BP Systolic 126 mm[Hg] Cher Sampson [facility] Internal Medicine Work Phone: Comment on above: Patient Position: Sitting; Cuff Location : Left Arm; Cuff Size: Standard 12-28-2006 11:11-0400 BSA (Body Surface Area) 1.99 m2 Cher Sampson [facility] Internal Medicine Work Phone: 12-28-2006 11:11-0400 Head Circumference 0 cm Cher Sampson [facility] Internal Medicine Work Phone: 12-28-2006 11:11-0400 Height 177.8 cm Cher Sampson [facility] Internal Medicine Work Phone: 12-28-2006 11:11-0400 Pulse (Heart Rate) 88 /min Cher Sampson [facility] Internal Medicine Work Phone: Comment on above: Pattern: Regular 12-28-2006 11:11-0400 Respiratory Rate 18 /min Cher Sampson [facility] Internal Medicine Work Phone: Comment on above: Pattern: Unlabored 12-28-2006 11:11-0400 Weight 80.74 kg Cher Sampson [facility] Internal Medicine Work Phone: 10-22-2006 15:30-0400 BMI (Body Mass Index) 25.54 kg/m2 Cher Sampson [facility] Internal Medicine Work Phone: 10-22-2006 15:30-0400 Body Temperature 97.8 [degF] Cher Sampson [facility] Internal Medicine Work Phone: Comment on above: Method: Oral 10-22-2006 15:30-0400 BP Diastolic 98 mm[Hg] Cher Sampson [facility] Internal Medicine Work Phone: Comment on above: Patient Position: Sitting; Cuff Location : Right Arm; Cuff Size: Standard 10-22-2006 15:30-0400 BP Systolic 142 mm[Hg] [facility] Work Phone: Comment on above: Patient Position: Sitting; Cuff Location : Right Arm; Cuff Size: Standard 10-22-2006 15:30-0400 BSA (Body Surface Area) 1.99 m2 [facility] Work Phone: 10-22-2006 15:30-0400 Head Circumference 0 cm [facility] Work Phone: 10-22-2006 15:30-0400 Height 177.8 cm [facility] Work Phone: 10-22-2006 15:30-0400 Weight 80.74 [facility] Work Phone: 03-04-2006 13:29-0500 Body Temperature 97.4 [degF] [facility] Work Phone: Comment on above: Method: Oral 03-04-2006 13:29-0500 BP Diastolic 82 mm[Hg] [facility] Work Phone: Comment on above: Patient Position: Sitting; Cuff Location : Left Arm; Cuff Size: Standard 03-04-2006 13:29-0500 BP Systolic 132 mm[Hg] [facility] Work Phone: Comment on above: Patient Position: Sitting; Cuff Location : Left Arm; Cuff Size: Standard 03-04-2006 13:29-0500 Head Circumference 0 cm [facility] Work Phone: 03-04-2006 13:29-0500 Height 0 cm [facility] Internal Medicine Work Phone: 03-04-2006 13:29-0500 Pulse (Heart Rate) 72 /min [facility] Work Phone: Comment on above: Pattern: Regular 03-04-2006 13:29-0500 Respiratory Rate 16 /min [facility] Internal Medicine Work Phone: Comment on above: Pattern: Unlabored 03-04-2006 13:29-0500 Weight 97.78 kg Cher Sampson [facility] Internal Medicine Work Phone: 02-17-2006 13:29-0500 BMI (Body Mass Index) 31.2 kg/m2 Cher Sampson [facility] Internal Medicine Work Phone: 02-17-2006 13:29-0500 Body Temperature 97 [degF] Cher Sampson [facility] Internal Medicine Work Phone: Comment on above: Method: Oral 02-17-2006 13:29-0500 BP Diastolic 80 mm[Hg] Cher Sampson [facility] Internal Medicine Work Phone: Comment on above: Patient Position: Sitting; Cuff Location : Left Arm; Cuff Size: Standard 02-17-2006 13:29-0500 BP Systolic 124 mm[Hg] Cher Sampson [facility] Internal Medicine Work Phone: Comment on above: Patient Position: Sitting; Cuff Location : Left Arm; Cuff Size: Standard 02-17-2006 13:29-0500 BSA (Body Surface Area) 2.16 m2 Cher Sampson [facility] Internal Medicine Work Phone: 02-17-2006 13:29-0500 Head Circumference 0 cm Cher Sampson [facility] Internal Medicine Work Phone: 02-17-2006 13:29-0500 Height 177.8 cm Cher Sampson [facility] Internal Medicine Work Phone: 02-17-2006 13:29-0500 Pulse (Heart Rate) 72 /min Cher Sampson [facility] Internal Medicine Work Phone: Comment on above: Pattern: Regular 02-17-2006 13:29-0500 Respiratory Rate 17 /min Cher Sampson [facility] Internal Medicine Work Phone: Comment on above: Pattern: Unlabored 02-17-2006 13:29-0500 Weight 98.63 kg Cher Sampson [facility] Internal Medicine Work Phone: Encounters Encounter Date Encounter Type Care Provider Facility Start: 08-23-2024 Non-patient / Non-visit Dr. Khoa zamarripa MD -[facility] Start: 08-23-2024 End: 08-23-2024 ambulatory Dae Osman SENIOR SOFTWARE MANAGER-C Work Phone: -Pulmonary Services/Neurology Start: 08-23-2024 End: 08-23-2024 Patient encounter procedure Laury Lee SENIOR SOFTWARE MANAGER-C -Pulmonary Services/Neurology Work Phone: Start: 08-23-2024 End: 08-23-2024 ambulatory Laury Lee Facility:[facility] Start: 07-04-2024 End: 07-04-2024 ambulatory Dae Osman SENIOR SOFTWARE MANAGER-C Work Phone: [facility] Work Phone: Start: 07-04-2024 End: 07-04-2024 Patient encounter procedure Dae sOman SENIOR SOFTWARE MANAGER-C -Laboratory Work Phone: Start: 07-04-2024 End: 07-04-2024 ambulatory Dae Osman VSC Facility:[facility] Start: 05-05-2024 End: 05-05-2024 ambulatory Dae Osman SENIOR SOFTWARE MANAGER-C Work Phone: [facility] Work Phone: Start: 05-05-2024 End: 05-05-2024 Patient encounter procedure Dae Osman SENIOR SOFTWARE MANAGER-C -Outpatient Breast Imaging Work Phone: Start: 05-05-2024 End: 05-05-2024 ambulatory Dae Osman VSC Facility:[facility] Start: 03-08-2024 End: 03-09-2024 Emergency department patient visit Dr. Butch Christina DO -Emergency Department Work Phone: Start: 01-06-2023 End: 01-06-2023 ambulatory [facility] Work Phone: Start: 01-06-2023 End: 01-06-2023 Patient encounter procedure [facility]-Outpatient Breast Imaging Work Phone: Start: 12-09-2022 End: 12-09-2022 ambulatory [facility] Work Phone: Start: 12-09-2022 End: 12-09-2022 Patient encounter procedure [facility] [place] Start: 06-11-2022 End: 06-11-[address] Santhosh Abbott Work Phone: [facility] Internal Medicine Start: 06-09-2022 End: 06-09-[address] Santhosh Abbott Work Phone: [facility] Work Phone: Start: 06-09-2022 End: 06-09-[address] Santhosh Abbott Work Phone: [facility] [place] Start: 04-30-2022 End: 05-30-[address] Santhosh Abbott Work Phone: [facility] Work Phone: Start: 04-30-2022 End: 05-30-[address] [facility] Start: 04-08-2022 End: 04-29-[address] Santhosh Abbott Work Phone: [facility] Work Phone: Start: 04-08-2022 End: 04-29-[address] [facility] Start: 03-20-2022 End: 04-01-[address] Santhosh Abbott Work Phone: [facility] Work Phone: Start: 03-20-2022 End: 04-01-[address] [facility] Start: 03-12-2022 End: 03-12-[address] Santhosh Abbott Work Phone: [facility] Internal Medicine Start: 02-11-2022 End: 02-11-[address] Santhosh Abbott Work Phone: [facility] Work Phone: Start: 02-11-2022 End: 02-11-[address] Santhosh Abbott Work Phone: [facility]-Laboratory, [place] Start: 02-04-2022 End: 03-01-[address] Santhosh Abbott Work Phone: [facility] Work Phone: Start: 02-04-2022 End: 03-01-[address] Santhosh Abbott Work Phone: [facility]-Nutritional Services Start: 02-04-[address] India Abbott Work Phone: [facility]-Nutritional Services Start: 01-28-2022 End: 01-28-[address] Santhosh Abbott Work Phone: [facility] Work Phone: Start: 01-28-2022 End: 01-28-[address] Santhosh Abbott Work Phone: [facility]-Laboratory, [place] Start: 01-21-2022 Non-patient / Non-visit Dr. Angie Abbott Work Phone: [facility] Start: 01-20-2022 Non-patient / Non-visit Dr. Angei Abbott Work Phone: [facility] Start: 01-19-2022 Non-patient / Non-visit Dr. Angie Abbott Work Phone: [facility] Start: 01-19-2022 End: 01-21-2022 Evaluation and management of inpatient Dr. Santhosh Abbott Work Phone: [facility]-Progressive Care Unit Start: 01-01-2022 End: 01-29-[address] Santhosh Abbott Work Phone: [facility] Work Phone: Start: 01-01-2022 End: 01-29-[address] Santhosh Abbott Work Phone: [facility]-Nutritional Services Start: 01-01-[address] India [facility] Start: 2021 End: [address] Santhosh Abbott Work Phone: [facility]-Ultrasound, [facility] Start: 12-17-2021 End: 12-17-2021 Encounter for general adult medical examination without abnormal findings Dr. Santhosh Abbott Work Phone: [facility] Internal Medicine Start: 12-17-2021 End: 12-17-[address] Santhosh Abbott Work Phone: [facility] Internal Medicine Start: 12-16-2021 End: 12-16-[address] Santhosh Abbott Work Phone: [facility] Work Phone: Start: 12-16-2021 End: 12-16-[address] Santhosh Abbott Work Phone: [facility]-Laboratory, Specimen Start: 12-15-2021 End: 12-15-[address] Santhosh Abbott Work Phone: [facility] Start: 12-15-[address] Meghan Abbott Work Phone: [facility] Start: 12-10-[address] Meghan Abbott Work Phone: [facility] Start: 12-10-2021 End: 12-10-[address] Santhosh Abbott Work Phone: [facility] Work Phone: Start: 12-10-2021 End: 12-10-[address] Santhosh Abbott Work Phone: [facility], [place] Start: 06-04-2021 End: 06-04-[address] Santhosh Abbott Work Phone: [facility] Internal Medicine Start: 05-29-2021 End: 05-29-[address] Santhosh Abbott Work Phone: [facility] [place] Start: 04-01-2021 Non-patient / Non-visit Dr. Angie Abbott Work Phone: [facility] Start: 12-04-[address] Santhosh Abbott Work Phone: [facility] Start: 01-25-2018 Patient encounter procedure Cher Dexter Internal Med Start: 01-25-2018 End: 01-25-2018 Office outpatient visit 25 minutes Cher Dexter Internal Medicine Start: 10-21-2017 End: 10-21-2017 Periodic preventive med est patient 40-64yrs Cher Dexter Internal Medicine Start: 08-05-2017 End: 08-05-2017 Annotation/Addendum Cher Sampson [facility] Start: 06-16-2017 End: 06-16-2017 Office outpatient visit 15 minutes Cher Dexter Internal Medicine Start: 03-04-2017 End: 03-04-2017 Annotation/Addendum Cher Dexter [facility] Start: 07-30-2016 End: 07-30-2016 Phone Encounter Cher Dexter [facility] Start: 07-09-2016 End: 07-09-2016 Office outpatient visit 15 minutes Cher Dexter Internal Medicine Start: 02-13-2016 End: 02-13-2016 Annotation/Addendum Cher Dexter [facility] Start: 11-30-2015 End: 11-30-2015 Office outpatient visit 25 minutes Cher Dexter Internal Medicine Start: 11-16-2015 End: 11-16-2015 Office outpatient visit 15 minutes Cher Dexter Internal Medicine Start: 10-19-2015 End: 10-19-2015 Initial preventive medicine new patient 40-64yrs Cher Dexter Internal Medicine Start: 07-06-2015 End: 07-06-2015 Annotation/Addendum Cher Dexter [facility] Start: 05-15-2015 End: 05-15-2015 Annotation/Addendum Cher Dexter [facility] Start: 04-24-2015 End: 04-24-2015 Office outpatient visit 10 minutes Cher Dexter Internal Medicine Start: 04-10-2015 End: 04-10-2015 Office outpatient visit 15 minutes Cher Dexter Internal Medicine Start: 01-04-2015 End: 01-04-2015 Phone Encounter Cher Dexter [facility] Start: 11-29-2014 End: 11-29-2014 Periodic preventive med est patient 40-64yrs Cher Dexter Internal Medicine Start: 10-09-2014 End: 10-09-2014 Office outpatient visit 15 minutes Cher Dexter Internal Medicine Start: 05-15-2014 End: 05-15-2014 Office outpatient visit 25 minutes Cher Dexter Internal Medicine Start: 08-16-2013 End: 08-16-2013 Office outpatient visit 25 minutes Cher Dexter Internal Medicine Start: 02-04-2013 End: 02-04-2013 Office outpatient visit 25 minutes Cher Dexter Internal Medicine Start: 01-10-2013 End: 01-10-2013 Annotation/Addendum Cher Dexter [facility] Start: 01-10-2013 End: 01-10-2013 Office outpatient visit 15 minutes Cher Dexter Internal Medicine Start: 06-30-2012 End: 06-30-2012 Office outpatient visit 25 minutes Cher Dexter Internal Medicine Start: 06-28-2012 End: 06-28-2012 Office outpatient visit 25 minutes Cher Dexter Internal Medicine Start: 03-30-2012 End: 03-30-2012 Office outpatient visit 25 minutes Cher Sam[facility] Start: 12-22-2011 End: 12-22-2011 Office outpatient visit 25 minutes Cher Dexter Internal Medicine Start: 11-10-2011 End: 11-10-2011 Patient encounter procedure Cher Dexter Internal Medicine Start: 09-16-2011 End: 09-16-2011 Office outpatient visit 25 minutes Cher Dexter Internal Medicine Start: 05-28-2011 End: 05-28-2011 Office outpatient visit 25 minutes Cher Dexter Internal Medicine Start: 02-26-2011 End: 02-26-2011 Office outpatient visit 15 minutes Cher Dexter Internal Medicine Start: 02-11-2011 End: 02-11-2011 Office outpatient visit 25 minutes Cher Dexter Internal Medicine Start: 02-05-2011 End: 02-05-2011 Annotation/Addendum Cher Dexter [facility] Start: 01-29-2011 End: 01-29-2011 Office outpatient visit 25 minutes Cher Dexter Internal Medicine Start: 01-15-2011 End: 01-15-2011 Patient encounter procedure Cher Dexter Internal Medicine Start: 12-18-2010 End: 12-18-2010 Office outpatient visit 15 minutes Cher Dexter Internal Medicine Start: 11-06-2009 End: 11-06-2009 Office outpatient visit 15 minutes Cher Dexter Internal Medicine Start: 10-12-2009 End: 10-12-2009 Office outpatient visit 25 minutes Cher Dexter Internal Medicine Start: 09-04-2009 End: 09-04-2009 Office outpatient visit 25 minutes Cher Dexter Internal Medicine Start: 08-28-2009 End: 08-28-2009 Annotation/Addendum Cher Dexter [facility] Start: 08-28-2009 End: 08-28-2009 Patient encounter procedure Cher Dexter Internal Medicine Start: 08-17-2009 End: 08-19-2009 Patient encounter procedure Cher Dexter Internal Medicine Start: 08-16-2009 End: 08-16-2009 Office outpatient visit 15 minutes Cher Dexter Internal Medicine Start: 08-15-2009 End: 08-15-2009 Office outpatient visit 15 minutes Cher Dexter Internal Medicine Start: 08-14-2009 End: 08-14-2009 Office outpatient visit 25 minutes Cher C[facility] Start: 08-13-2009 End: 08-13-2009 [facility] Start: 02-07-2009 End: 02-07-2009 Office outpatient visit 25 minutes [facility] Internal Medicine Start: 01-30-2009 End: 01-30-2009 Office outpatient new [facility] Start: 01-16-2009 End: 01-16-2009 Office outpatient visit 25 minutes [facility] Internal Medicine Start: 02-09-2008 End: 02-09-2008 Office outpatient visit 25 minutes [facility] Internal Medicine Start: 09-15-2007 End: 09-15-2007 Office outpatient visit 25 minutes [facility] Internal Medicine Start: 12-28-2006 End: 12-28-2006 Office outpatient visit 10 minutes [facility] Internal Medicine Start: 10-22-2006 End: 10-22-2006 Patient encounter procedure [facility] Internal Medicine Start: 03-30-2006 End: 03-30-2006 Historical Summary [facility] Start: 03-04-2006 End: 03-04-2006 Office [facility] Start: 02-17-2006 End: 02-17-2006 Office outpatient new 45 minutes [facility] Internal [facility] Procedures Date Procedure Procedure Detail Performing Clinician Start: 07-04-2024 Vitamin D, 25-hydroxy measurement Dae Osman SENIOR SOFTWARE MANAGER-C Work Phone: Comment on above: Vitamin D StatusDeficiency: <20 ng/mL (5 0nmol/L)Insufficiency: 20-30 ng/mL (50-75 nmol/L)Sufficiency: 30-100 ng/mL (75-250 nmol/L)Toxicity: >100 ng/mL (>250 nmol/L) Start: 05-05-2024 Screening mammography Dae Osman SENIOR SOFTWARE MANAGER-C Work Phone: Start: 03-08-2024 SARS-CoV-2, Influenza & RSV (PCR) Dae Osman SENIOR SOFTWARE MANAGER-C Work Phone: Start: 01-06-2023 Screening mammography Start: 01-19-2022 CT of head without contrast Dr. Santhosh Abbott Work Phone: Start: [address] Santhosh Abbott Work Phone: Start: [address] Santhosh Abbott Work Phone: Start: 10-29-2017 End: 10-29-2017 Dexa Bone Density Study Comments: See Note; NOTES: [facility] Imaging Services [address] [place] [address] Dexa Bone Density Study MR#: [id number] Acct: [id number] Name: VONNIE SALAZAR Rep #: [id number] : 1965 F 51 From: Pola García MD PCP: Cher Sampson NP Status: REG CLI Study: Dexa Bone Density Study Date of Exam: 10/29/17 Exam# [id number] Ordering Dr: Cher Sampson STUDY: DUAL ENERGY [...] Total: g/cm2 (1.113) / T-score (0.8) / Z-score (1.3) Right Femoral Neck: g/cm2 [...] Pola García MD at 15:46 EDT Tel [phone], Service support , CC: Cher Sampson NP Leather Crafter: Signed Cher Sampson Work Phone: Start: 08-20-2017 End: 08-21-2017 SCREENING MAMM (CAD), BILAT Comments: See Note; NOTES: [facility] Imaging Services [address] [place] [address] SCREENING MAMM (CAD), BILAT MR#: [id number] Acct: [id number] Name: VONNIE SALAZAR Rep #: [id number] : 1965 F 51 From: Pola García MD PCP: Cher Sampson NP Status: REG CLI Study: SCREENING MAMM (CAD), BILAT Date of Exam: 08/20/17 Exam# [id number] Ordering Dr: Cher Sampson MAMMOGRAPHY - BILATERAL SCREENING REASON FOR EXAM: Female, 51 years old. Routine annual screening examination. PERTINENT HISTORY: Aunt with breast cancer. TECHNIQUE: Digital bilateral breast ezra (3D mammographic acquisition) in the CC and [...] delay biopsy of a clinically suspicious abnormality. [id number] Electronically Signed: Pola García MD at 12:57 EDT Tel [phone], Service support , CC: Cher Sampson NP Leather Crafter: Signed Cher Sampson Work Phone: Start: 08-20-2017 End: 08-20-2017 Downtime Report Comments: See Note; NOTES: [facility] Medical Records Department [address] [place] [id number] Downtime Report MR#: [id number] Acct: [id number] Name: VONNIE SALAZAR Rep #: [id number] : 1965 51 From: Jesse Carrasco PCP: Cher Sampson NP Status: REG CLI This patient was seen during an EMR downtime August 03, 2017 - August 10, 2017. This patient may have a combination of paper and electronic documentation or all paper documentation. All documentation is viewable within the e-chart portion of [employer] for each patient visit. Cher Sampson Start: 08-19-2017 End: 08-19-2017 Downtime Report Comments: See Note; NOTES: [facility] Medical Records Department [address] [place] [address] Downtime Report MR#: [id number] Acct: [id number] Name: VONNIE SALAZAR Rep #: [id number] : 1965 51 From: Jesse Carrasco MD PCP: Cher Sampson NP Status: DEP ER This patient was seen during an EMR downtime August 03, 2017 - August 10, 2017. This patient may have a combination of paper and electronic documentation or all paper documentation. All documentation is viewable within the e-chart portion of [employer] for each patient visit. Cher Sampson Start: 04-09-2017 End: 04-09-2017 Urgent Care Visit Report Comments: See Note; NOTES: [facility] [address] [place] [address] OFFICE VISIT Date of Service: 04/09/17 MR#: [id number] Acct: [id number] Name: VONNIE SALAZAR R Rep #: [id number] : 1965 Provider: Donnie SOTOMAYOR Age/Sex: 51/F Location: [facility] Status: Signed Intake Vital Signs04/09/17 Height 5 ft 9 in 04/09/17 Weight: 241 lb 04/09/17 Body Mass Index (BMI) 35.6 Intake Visit Reasons: ILL Coke Inspector Required: No Is patient in pain?: No [...] alcohol intake: never HPI HPI Details: VONNIE SALAZAR, is a 51 F who presents to [...] Kennedy on 04/09/17 16:54 Assessment AND Plan Problems [...] the above. This note was generated with Egaletation software. It may contain incorrect words, spelling, and punctuation that were not noted in checking the note before signing. Orders Orders: Coding Level of Care Code Off vis,est,level 3 Diagnoses URI (upper respiratory infection) J06.9 04/09/17 1656 <Electronically signed by Donnie SOTOMAYOR> Date Donnie SOTOMAYOR Cosigner Signature: Date (if applicable) CC: Cher Sampson Start: 04-03-2017 End: 04-03-2017 Massage Therapy Evaluation Comments: See Note; NOTES: [facility] [address] [place] [address]. 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 She was referred to the [facility] [...] this I certify the plan of care. _ Physicians Signature Date Cher Bhatumair Start: 03-16-2017 End: 03-16-2017 Urgent Care Visit Report Comments: See Note; NOTES: [facility] [address] [place] [address] OFFICE VISIT Date of Service: 03/16/17 MR#: [id number] Acct: [id number] Name: VONNIE SALAZAR R Rep #: [id number] : 1965 Provider: Kris SOTOMAYOR Age/Sex: 51/F Location: [facility] Status: Signed Intake Vital Signs03/16/17 Height 5 ft 9 in Intake Visit Reasons: RIGHT SIDE PAIN Is patient in pain?: Yes Allergies No Known Allergies Allergy (Verified 03/16/17 11:42) Medications Atorvastatin Calcium [Lipitor] 20 mg PO DAILY 05/11/13 [History Confirmed 03/16/17] Nebivolol HCl [Bystolic] 10 mg PO DAILY 05/11/13 [History Confirmed 03/16/17] Estradiol [Estrace] 2 mg PO DAILY 10/04/16 [History Confirmed 03/16/17] Meloxicam 7.5 mg PO DAILY 10/04/16 [History Confirmed 03/16/17] PFSH Medical History HTN (hypertension) (Chronic) Surgical History H/O: hysterectomy (Acute) Hx of cholecystectomy (Acute) Family History Other Hypertension Social History Smoking Status: Never smoker alcohol intake: never HPI RIGHT SIDE PAIN: Details: VONNIE NOFFSINGER, is a 51 F who presents to [...] currently is a 3 out of 10 constant pain. She describes the pain as a [...] shortness of breath or chest congestion Cardio Cardiology: No chest pain at rest, chest pain with exertion or shortness of breath Gastro GI: Positive for abdominal pain; no bloating, belching, diarrhea, vomiting, nausea/dyspepsia, Vomiting blood/hematemesis, constipation or cramping Skin Skin: No wounds or lesions Neuro Neurology: No behavioral changes or confusion Psych Psychiatric: No behavioral changes, No confusion, No abnormal sleep pattern Endo Endocrine: No fatigue Exam Const General: cooperative, healthy appearing [facility] Head: normocephalic, atraumatic Ears: hearing grossly normal bilaterally Face and sinus: face symmetric Eyes General: appearance normal, both eyes and all related structures Pupils: PERRL Resp Effort AND Inspection: normal respiratory effort Auscultation: Bilateral: Clear to Auscultation Cardio Rate: regular rate Rhythm: regular rhythm Heart Sounds: S1 normal, S2 normal GI Inspection: normal to inspection, non-distended Auscultation: normal bowel sounds Percussion: normal to percussion Palpation: soft, no hepatosplenomegaly, not firm, nontender, other (Negative McBurney's point tenderness, psoas and obturator sign.) Skin General: no rashes or lesions noted Neuro General: alert Psych Appearance: grossly normal Mental Status: mental status grossly normal Assessment AND Plan [...] use Tylenol or Ibuprofen (unless contraindicated) for fever and comfort. Patient also educated on other symptomatic management techniques. Patient advised of potential red flags and when appropriate to report to the ED. Patient verbalized understanding all of the above. This note was generated with Egaletation software. It may contain incorrect words, spelling, and punctuation that were not noted in checking the note before signing. Orders Orders: Coding Level of Care Code Off vis,new,level 3 Diagnoses RUQ abdominal pain R10.11 03/16/17 1210 <Electronically signed by Kris SOTOMAYOR> Date Kris SOTOMAYOR Cosigner Signature: Date (if applicable) CC: Cher Sampson Start: 02-27-2017 End: 02-27-2017 Discharge Summary Comments: See Note; NOTES: [facility] Medical Records Department [address] [place] [address] Discharge Summary 02/27/17 1309 MR#: [id number] Acct: [id number] Name: VONNIE SALAZAR Rep #: [id number] : 1965 51 From: Yvrose Pickard PCP: Cher Sampson NP Status: REG RCR Y Location: [facility] Massage Therapy Discharge Summary: Initial Evaluation Date: 03/28/16 This patient was seen for a massotherapy evaluation on 03/28/2016 with a diagnosis of cervical radiculopathy and herniated disc. She was treated with eight sessions of massage therapy which included MFR, muscle stripping and a heat pack to loosen muscles. Due to time constraints with insurance, at this time I will discharge this patient from our care at [facility]. Sincerely, Yvrose Pickard LMT 02/27/17 1315 <Electronically signed by Yvrose Pickard > Date Yvrose Pickard Cosigner Signature (if applicable): Date CC: Cher Sampson SENIOR SOFTWARE MANAGER; Yvrose Pickard Signed Cher Sampson Start: 10-04-2016 End: 10-04-2016 Emergency Department Summary Comments: See Note; NOTES: [facility] Medical Records Department [address] [facility] [address] Emergency Department Summary 10/04/16 2158 MR#: [id number] Acct: [id number] Name: VONNIE SALAZAR Cruz Rep #: [id number] : 1965 50 From: Jaylen Khan MD PCP: Cher Sampson Status: DEP ER - ER Visit Summary Date of Service: 10/04/16 Chief Complaint: Bilateral hand injuries History of Present Illness: The patient is a 50 F who presents to the emergency department bilateral hand injuries. Patient was chasing her dog. She states that she went to jump to get the lesion. She tripped and fell forward landing with both hands on concrete. She had a puncture wound to the palm of her right hand. She has suffered abrasions to her left hand. She denies pain in the right hand. Most the pain is in her left hand. Her last tetanus was less than 2 years ago. Physical Examination: Patient has abrasion over the lateral aspect of the left fifth finger down into the fifth MCP joints. No rotational deformity. She does have a 2's and radial full-thickness laceration the mid palm on the right hand. No evidence of injury to the recurrent nerve. Normal pulses. No pain with palpation. Test Results: X-rays of both hands show no evidence [...] wound care and reasons to return. She will be discharged home. Treatment Plan: [] Disposition: [...] your Primary Care Provider. Call [facility] ([phone]) or report to the closest Emergency Room. Call 911 if necessary. 10/04/16 2328 <Electronically signed by Jaylen Khan MD> Date Jaylen Khan MD Cosigner Signature (If Indicated): Date CC: Cher Sampson Cher Camilla Start: 08-15-2016 End: 08-18-2016 SCREENING MAMM (CAD), BILAT Comments: See Note; NOTES: [facility] Imaging Services [address] [place] [address] Verda 4d SCREENING MAMM (CAD), BILAT MR#: [id number] Acct: [id number] Name: VONNIE SALAZAR Rep #: [id number] : 1965 F 50 From: Pola García MD PCP: Cher Sampson Status: REG CLI Study: SCREENING MAMM (CAD), BILAT Date of Exam: 08/15/16 Exam# [id number] Ordering Dr: Cher Sampson MAMMOGRAPHY - BILATERAL SCREENING REASON FOR EXAM: Female, 50 years old. Routine annual screening examination. PERTINENT HISTORY: Aunt with breast cancer. TECHNIQUE: Digital bilateral breast ezra (3D mammographic acquisition) in the CC and [...] delay biopsy of a clinically suspicious abnormality. [id number] Electronically Signed: Pola García MD at 10:21 EDT Tel [phone], Service support , CC: Cher Sampson Leather Crafter: Signed Cher Sampson Work Phone: Start: 07-03-2016 End: 07-03-2016 Rapid strep test Donnie SOTOMAYOR Work Phone: Start: 03-04-2016 End: 03-04-2016 PT Discharge Summary Comments: See Note; NOTES: [facility] [address] [place] [address]. [address] [place] [address] Fax REHABILITATION SERVICES DISCHARGE SUMMARY MR#: [id number] Acct: [id number] Name: VONNIE SALAZAR R Rep #: [id number] : 1965 50 From: Susu Malin Referring [...] the patient from our care at the [facility] facility. Susu Malin LMT T: REG JOB: [id number] <Electronically signed by Susu Malin > 03/04/16 0643 CC: Cher Sampson Signed Cher Sampson Start: 02-28-2016 End: 02-28-2016 PT Discharge Summary Comments: See Note; NOTES: [facility] [address] [place] [address]. [address] [place] [address] Fax REHABILITATION SERVICES DISCHARGE SUMMARY MR#: [id number] Acct: [id number] Name: VONNIE SALAZAR Rep #: [id number] : 1965 50 From: Susu Malin Referring [...] the patient from our care at the [facility] facility. Susu Malin LMT T: REG JOB: [id number] <Electronically signed by Susu Malin > 02/28/16 1658 CC: Cher Sampson Signed Cher Sampson Start: 01-29-2016 End: 01-29-2016 PT D/C of Non Returning Pt (1) Comments: See Note; NOTES: [facility] [address] [facility]. [address] [place] [address] Fax REHABILITATION SERVICES DISCHARGE SUMMARY MR#: [id number] Acct: [id number] Name: VONNIE SALAZAR Rep #: [id number] : 1965 50 From: Cert. ARCEINO Gambino PT, OCS Referring Dr.: Cher Sampson Status: REG RCR Insurance: [facility] [employer] [facility] HP - Discharge Summary (1) - Patient Information VONNIE SALAZAR was seen in my office for initial evaluation on 11/19/15. The following Plan of Care was established for this patient: Initial Frequency: 2x /Week Initial [...] the physician. Thank you! Noam Martinez PT, <Electronically signed by Cert. ARCENIO Gambino PT, OCS> 01/29/16 0926 CC: Cher Sampson JLA Signed Cher Sampson Start: 12-07-2015 End: 12-09-2015 Spine Cervical (Routine) Comments: See Note; NOTES: [facility] Imaging Services [address] [place] [address] Verdana 4d Spine Cervical (Routine) MR#: [id number] Acct: [id number] Name: VONNIE SALAZAR Rep #: [id number] : 1965 F 49 From: Kendal Cox DO PCP: Cher Sampson Status: REG CLI Study: Spine Cervical (Routine) Date of Exam: 12/07/15 Exam# [id number] Ordering Dr: Cher Sampson STUDY: MRI CERVICAL SPINE WITHOUT CONTRAST REASON FOR EXAM: Female, 49 years old. Neck pain radiating to shoulder blades causing weakness with lifting. No specific injury. Symptoms for 6 years TECHNIQUE: Standardized fat and water weighted pulse sequences were obtained in the sagittal and axial planes. COMPARISON: None FINDINGS: Normal foramen magnum and brainstem-cervical cord junction. Normal craniovertebral junction. Normal anterior atlantoaxial articulation. Normal odontoid process. There is straightening of the normal cervical lordosis. Normal vertebral bodies and posterior osseous elements. C2-3: Normal endplates. Normal disc height, signal and less than 1 mm broad-based posterior disc bulging image 138 series 7. Normal central canal and intervertebral neural foramina. C3-4: Normal endplates. Normal disc height, signal and small central disc herniation of the protrusion type measuring 1.6 mm AP and 4 mm transverse image 114 series 7. Normal central canal and intervertebral neural foramina. C4-5: Normal endplates. Normal disc height, signal and small central disc herniation of the protrusion type measuring 1.6 mm AP and 5.2 mm transverse image 89 series 7. Normal central canal and intervertebral neural foramina. C5-6: Mild spondylosis of the endplates. Arthrosis of the right greater than left uncovertebral joints. Mild arthrosis of the facet joints. Partial loss of disc height, signal and circumferential disc osteophyte complex. Mild narrowing of the central canal, 9 mm AP. Moderate narrowing of the right and minimal narrowing of the left intervertebral neural foramina. C6-7: Mild spondylosis of the endplates. Partial loss of disc height and signal with broad based posterior disc herniation of the extrusion type demonstrating a subligamentous mushroom cap configuration image 8 series 2. The disc measures 3 mm AP to the right of midline and 2.5 mm AP left of midline. There is slight extrinsic compression upon the ventral margin of the cervical cord at the level of the disc, to the right of midline image 44 series 7. There is narrowing of the central canal to 6.1 mm slightly to the right of midline. Mild narrowing of the bilateral intervertebral neural foramina. C7-T1: Normal endplates. Normal disc height, signal and morphology. Normal central canal and intervertebral neural foramina. Normal cervical cord. Normal visualized soft tissue structures. MRI/Spine Cervical (Routine) IMPRESSION: Fairly large disc herniation with central canal compromise at C6-7 as noted above. Cervical spondylosis with mild narrowing of the central canal and right greater than left foraminal stenosis at C56. Elsewhere very small central disc herniations without central canal or foraminal compromise. Electronically Signed: Kendal Cox DO at 1:40 EDT Tel , Service support [phone], CC: Cher Sampson Leather Crafter: Signed Cher Sampson Work Phone: Start: 11-19-2015 End: 11-19-2015 Inital Evaluation (1) - PT Comments: See Note; NOTES: [facility] Physical Therapy [address] [place] [address] Fax REHABILITATION SERVICES INITIAL EVALUATION MR#: [id number] Acct: [id number] Name: VONNIE SALAZAR Rep #: [id number] : 1965 49 From: Noam Osman Referring : Cher Sampson Status: REG RCR Insurance: [facility] Patient's Visit Information VONNIE SALAZAR is a 49 year old F referred to Physical Therapy by Cher Sampson with a diagnosis of Lower cervical disc herniation. Date of Evaluation: 11/19/15 Physical Therapist: Noam Osman - Visit Plan Frequency: 2x /Week Duration: 5 weeks Plan: Patient will receive skilled PT services inclusive of therapeutic exercises, manual therapy, NMR, and modalities to improve cervical stabilization, thoracic mobility, and normalize postural deficits. - Subjective Subjective: Patient reports pain in the lower neck mostly in the center but occasionally down into the right shoulder blade. Patient states that she has managed her pain with previous physical therapy and HEP activities occasionally, as well as receiving an occasional massage. Patient reports difficulty sleeping, patient was riding bike for exercise - Pain Bilateral Neck Pain Intensity (Out of 10): 5 Pain Intensity Range: 3, 8 Comment: Burning diffusing from CT junction through the shoulder blades - Objective Observation: mildly flattened thoracic spine w/moderate forward hinge at the CT junction region. Moderate forward head/shoulder posture. Left scapula rests mildly elevated and protracted compared to the right side. Palpation: moderate soft tissue restrictions TTP in bilateral upper trapezius and levator scapulae. No tenderness to palpation along the spinous/ transverse process throughout lower cervical region. Cervical AROM: Flexion: 50 degrees ( reproduction of CT junction pain). Extension: WNL (pain relief reported). Rotation: L: WNL R: 65 degrees (reproduction of pain). Shoulder strength and AROM are WNL bilaterally in all planes of motion. Patient reports relief with cervical distraction in supine position. Moderate joint hypomobility w/thoracic spine PA mobilizations -- patient reports relief with thoracic manipulation. - Special Tests C/S Radiculapathy - Left Upper limb tension test: Negative C/S Radiculapathy - Right Upper limb tension test: Negative C/S Radiculapathy - Left Spurlings: Negative C/S Radiculapathy - Right Spurlings: Negative C/S Radiculapathy - Left Cervical distraction: Negative C/S Radiculapathy - Right Cervical distraction: Negative C/S Radiculapathy - Left Relief test: Positive C/S Radiculapathy - Right Relief test: Positive Sharp Alycia: Negative Vertebral Artery Test: Negative Alar Ligament Test: Negative Cervical Sitting: Protrusion - Symptoms During Testing: Increases Cervical Sitting: Retraction - Mechanical Response: Increases motion Cervical Sitting: Retraction - Symptoms During Testing: Decreases - Goals Goal 1:: Patient will demonstrate no greater than 1/10 neck pain with cervical flexion and right rotation movements. Goal Time Frame: 2-4 Weeks Goal 2:: Patient will tolerate prolonged sitting activities with no greater than 1/10 neck discomfort maintaining good posture with minimal cueing. Goal Time Frame: 2-4 Weeks Goal 3:: Patient will be compliant w/HEP for cervical stabilization and postural re-training. Goal Time Frame: 4-6 Weeks - Rehabilitation Potential Physical Therapy Diagnosis: Cervical instability, cervical flexion/right rotation compressive syndrome Rehabilitation Potential: Good - Anticipated Interventions Patient/Client Instruction: Educate patient [...] and Medicare HMO plans, please review the plan of care and approve it. It will need to be FAXED BACK to us at [phone] for Medicare purposes. Please let me know if there are questions or concerns regarding this plan of care. Physician Signature: Date: <Electronically signed by Noam Osman > 11/19/15 1129 CC: Cher Sampson KARLEY Signed For Medicare only, by signing this I certify the plan of care. _ Physicians Signature Date Cher Sampson Start: 11-16-2015 End: 11-16-2015 Cerv Spine 4 or 5 Views Comments: See Note; NOTES: [facility] Imaging Services [address] [place], [place] [address] [address] Verfarhad 4d Cerv Spine 4 or 5 Views MR#: [id number] Acct: [id number] Name: VONNIE SALAZAR Rep #: [id number] : 1965 F 49 From: Pola García MD PCP: Cher Sampson Status: REG CLI Study: Cerv Spine 4 or 5 Views Date of Exam: 11/16/15 Exam# [id number] Ordering Dr: Cher Sampson STUDY: X-RAY - CERVICAL SPINE REASON FOR EXAM: [...] neuroforamina. The soft tissue structures are unremarkable. RAD/Cerv Spine 4 or 5 Views IMPRESSION: Disc space narrowing at the C6-C7 level with anterior spondylosis. Electronically Signed: Pola García MD at 14:54 EDT Tel [phone], Service support [phone], CC: Cher Sampson Leather Crafter: Signed Cher Sampson Work Phone: Start: 08-01-2015 End: 08-01-2015 Inital Evaluation - PT Comments: See Note; NOTES: [facility] Physical Therapy [address] [place] [address] Fax REHABILITATION SERVICES INITIAL EVALUATION MR#: [id number] Acct: [id number] Name: VONNIE SALAZAR Rep #: [id number] : 1965 49 From: Susu Garcia Referring DrAshutosh: Cher Sampson Status: REG RCR Insurance: [facility] [employer] Eval Date: DATE OF SERVICE: 03/30/2015 REFERRING PHYSICIAN: Dr. 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 Sampson with a diagnosis of having joint pain. She presents today with the symptoms of having neck and shoulder pain primarily within her left shoulder. She does state that the tension is always tight within both shoulders though it goes back and forth from left to right. She has reported that her headaches have been becoming more frequent and she thinks this could be related to her herniated disk. She rates her overall health to be in good condition with hardly no limitations throughout daily activities and her goals of treatment are to decrease her pain. OBJECTIVE: The first treatment consisted of 1-hour massage to the head, neck, shoulder and back area using deep pressure. Upon observation, I found that she had high tension throughout her suboccipital muscles, levator scapula muscles, scalene muscles, trapezius muscles and sternocleidomastoid muscles, pectoral muscles and rhomboid muscles. I also found that she had knots all throughout her trapezius and along the medial borders of her scapula and that her cervical through lumbar paraspinals were very tight and ropey. She did have restricted range of motion with her neck due to the tension. ASSESSMENT: The patient easily relaxed and was able to tolerate the deep pressure. She was able to increase her range of motion after the treatment. I feel that she is a good [...] sessions. Susu Garcia LMT T: REG JOB: [id number] <Electronically signed by Susu Garcia > 08/01/15 1909 CC: Signed For Medicare only, by signing this I certify the plan of care. _ Physicians Signature Date Cher Sampson Start: 07-20-2015 End: 07-23-2015 Bilat Scrn Digital AND CAD Comments: See Note; NOTES: [facility] Imaging Services [address] [place] [address] Verdayanely 4d Bilat Scrn Digital AND CAD MR#: [id number] Acct: [id number] Name: VONNIE SALAZAR Rep #: [id number] : 1965 F 49 From: Pola García MD PCP: Cher Sampson Status: REG CLI Study: Bilat Scrn Digital AND CAD Date of Exam: 07/20/15 Exam# [id number] Ordering Dr: Cher Sampson MAMMOGRAPHY - BILATERAL [...] performed. COMPARISON: Comparison is made with prior outside examination dated March 11, 2006. FINDINGS: Breast Composition: There are scattered areas of fibroglandular density. There are no dominant masses or suspicious calcifications. No other significant abnormalities are identified. IMPRESSION: Stable bilateral screening mammogram. Yearly follow-up mammogram recommended. (A) ASSESSMENT CATEGORY: BIRADS Category 1: Negative. A letter regarding these results will be sent to the patient by the facility within 30 days. Approximately 10% of breast cancers are not detected by mammography. A normal mammogram should not delay biopsy of a clinically suspicious abnormality. [id number] Electronically Signed: Pola García MD at 12:25 EDT Tel [phone], Service support [phone], CC: Cher Sampson Leather Crafter: Signed Cher Sampson Work Phone: Start: 03-05-2015 End: 03-05-2015 PT Discharge Summary Comments: See Note; NOTES: [facility] Physical Therapy [address] [place], [place] [address] Fax REHABILITATION SERVICES DISCHARGE SUMMARY MR#: [id number] Acct: [id number] Name: VONNIE SALAZAR Rep #: [id number] : 1965 49 From: Susu Garcia Referring : Cher Sampson Status: DIS RCR Eval Date: Discharge Date: 02/05/15 DATE OF SERVICE: REFERRING PHYSICIAN: Dr. Cher Sampson. The patient was seen for massotherapy evaluation on March 17, 2014 with a diagnosis of having neck pain. The patient was treated with 8 sessions of massage consisting of 1 hour treatments to the upper body. Her goals of treatment were met as she reported that massage helped her greatly throughout the 2014. At this time, I am discharging the patient from our care at the [facility] facility. Susu Garcia LMT T: NTS JOB: [id number] <Electronically signed by Susu Garcia > 03/05/15 1201 CC: Chre Sampson Signed Cher Sampson Start: 04-24-2014 End: 04-24-2014 Inital Evaluation - PT Comments: See Note; NOTES: [facility] Therapy [address] [place] [address] Fax REHABILITATION SERVICES INITIAL EVALUATION MR#: [id number] Acct: [id number] Name: VONNIE SALAZAR Rep #: [id number] : 1965 48 From: Susu Garcia Referring DrAshutosh: Cher Ciesa Status: DIS RCR Insurance: [facility] Eval Date: DATE OF SERVICE: 03/17/2014 REFERRING PHYSICIAN: Dr. Cher Sampson. 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 [facility] facility for massotherapy evaluation by Dr. Sampson with a diagnosis of having neck and shoulder pain. She presents today with the symptoms of high tension throughout her neck and shoulders, where she also complains of having occasional burning sensation throughout her shoulder blades. The symptoms have been present for years and has commenced due to an unknown reason though she does seem to have more tension after working long hours and picking up extra hours with work. OBJECTIVE: The first treatment consisted of 1-hour massage to the head, neck, shoulder and back area using deep pressure. Upon observation, I found that she had high tension in her cervical spine along with her levator scapula muscles, scalene muscles and trapezius muscles. [...] sessions. Susu Garcia LMT T: REG JOB: [id number] <Electronically signed by Susu Garcia > 04/24/14 1107 CC: Signed For Medicare only, by signing this I certify the plan of care. _ Physicians Signature Date Cher Sampson Start: 03-10-2014 End: 03-10-2014 PT Discharge Summary Comments: See Note; NOTES: [facility] [address] [place], [place] [address] Fax REHABILITATION SERVICES DISCHARGE SUMMARY MR#: [id number] Acct: [id number] Name: VONNIE SALAZAR Rep #: [id number] : 1965 48 From: Susu Garcia Referring : Cher Sampson Status: DIS RCR Eval Date: Discharge Date: 05/27/13 DATE OF SERVICE: REFERRING PHYSICIAN: Dr. Sampson. The patient was seen for massotherapy evaluation on May 13 with a diagnosis of having neck and shoulder pain. The patient was treated with 2 sessions of massage consisting of 1 hour treatment to the upper body focusing on the neck and shoulder area. The patient reported that her goals of treatment were met as she was able to decrease her pain throughout the year of 2013, but the patient was unable to schedule more appointments throughout the year. She was very happy with her treatment. At this time, I am discharging the patient from our care at the [facility]. Susu Garcia LMT T: REG JOB: [id number] <Electronically signed by Susu Garcia > 03/10/14 1104 CC: Signed Cher Sampson Start: 06-16-2013 End: 06-16-2013 Inital Evaluation - PT Comments: See Note; NOTES: [address] [place] [address] Fax REHABILITATION SERVICES INITIAL EVALUATION MR#: [id number] Acct: [id number] Name: VONNIE SALAZAR Rep #: [id number] : 1965 47 From: Susu Garcia Referring : Cher Sampson Status: DIS RCR Insurance: [facility] [employer] Eval Date: DATE OF SERVICE: 05/25/2013 REFERRING PHYSICIAN: Dr. Cher Sampson. 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 Her goals of treatment are to decrease her tension in her neck and shoulders, and decrease the burning sensation. Upon observation, I found that the patient had high tension throughout the head, neck and shoulder area. OBJECTIVE: The first treatment consisted of a 1-hour massage to the upper body. Throughout the massage, I found that she had tension throughout her suboccipital muscles, levator, scapular muscles, trapezius muscles, and rhomboid muscles. I found that she had a large knot along the medial borders of her scapula. Her cervical through lumbar paraspinals were very tight and ropey. ASSESSMENT: The patient easily relaxed and was able to tolerate deep pressure. I was able to achieve a good release overall using myofascial release techniques, precision neuromuscular [...] year 2013 for a total of ten 1-hour sessions. Susu Garcia LMT T: REG JOB: [id number] <Electronically signed by Susu Garcia > 06/16/13 9004 CC: Signed For Medicare only, by signing this I certify the plan of care. _ Physicians Signature Date Kely Santiago Phone: Start: 05-17-2013 End: 05-17-2013 Kristen Benavidez Start: 02-19-2013 End: 02-19-2013 PT Discharge Summary Comments: See Note; NOTES: [facility] [address] [place] [address] Fax REHABILITATION SERVICES DISCHARGE SUMMARY MR#: [id number] Acct: [id number] Name: VONNIE SALAZAR Rep #: [id number] : 1965 47 From: Susu Garcia Referring Dr.: Cher aSmpson Status: PRE RCR Eval Date: Discharge Date: DATE OF SERVICE: 02/18/2013 REFERRING PHYSICIAN: [...] she reported that massage helped her greatly to decrease her pain throughout the 2012. At this time, I am discharging the patient from our care at the [facility]. Susu Garcia LMT T: REG JOB: [id number] <Electronically signed by Susu Garcia > 02/19/13 1043 CC: * Signed Kely Santiago Phone: Start: 02-04-2013 End: 02-04-2013 Chest PA and Lateral Comments: See Note; NOTES: [facility] Imaging Services [address] [place] [address] Radiology Report MR#: [id number] Acct: [id number] Name: VONNIE SALAZAR Rep #: [id number] : 1965 F 47 From: Pola García MD PCP: Status: REG CLI Study: Chest PA and Lateral Date of Exam: 02/04/13 Exam# [id number] Ordering Dr: Cher Sampson STUDY: X-RAY CHEST REASON FOR EXAM: Female, 47 years old. Right-sided chest tightness. TECHNIQUE: PA and lateral views of the chest. COMPARISON: Comparison is made with prior study dated January 16, 2009. FINDINGS: The lungs are clear and expanded. Calcified old granulomatous disease. There is no demonstrated pleural abnormality. Normal size heart. Normal mediastinum and jordan. Normal visualized pulmonary arteries. Normal visualized aortic arch and descending thoracic aorta. Normal visualized thoracic spine. Normal visualized ribs, clavicles, and shoulders. There is no demonstrated abnormality of the visualized soft tissue structures of the upper abdomen. IMPRESSION: No acute abnormality is seen. Electronically Signed: Pola García M.D. at 11:50 EST , Service support [phone], CC: Cher Sampson Leather Crafter: Signed Cher Sampson Work Phone: Cholecystectomy Cholecystectomy (Gall Bladder Removal) Cher Sampson SARS-CoV-2 & FLU Ant igen (Rapid) Dr. Santhosh Abbott Work Phone: SARS-CoV-2 & FLU Ant igen (Rapid) Dr. Santhosh Abbott Work Phone: Streptococcus pyogen es Ag [Presence] in Throat Dr. Santhosh Abbott Work Phone: Streptococcus pyogen es Ag [Presence] in Throat Dr. Santhosh Abbott Work Phone: Viral antigen assay Dr. Kelli Abbott Work Phone: Viral antigen assay Dr. Kelli Abbott Work Phone: Plan of Treatment Date Care Activity Detail Author Start: 03-09-2024 [facility] Start: 06-11-2022 Patient referral [facility] Work Phone: Start: 01-21-2022 Patient discharge [facility] Start: 01-19-2022 Following clinical pathway protocol [facility] Start: 01-19-2022 Ambulation without limitation [facility] Start: 01-19-2022 Assessment of risk of venous thromboembolism [facility] Start: 01-19-2022 Insertion of catheter into peripheral vein [facility] Start: 01-19-2022 Providing care according to standard [facility] Start: 01-19-2022 [facility] Start: 01-19-2022 Verification routine [facility] Work Phone: Start: 01-19-2022 Admission procedure [facility] Start: 01-19-2022 Patient referral to dietitian [facility] Start: 12-17-2021 Patient referral [facility] Work Phone: Start: 12-16-2021 Beta-hemolytic Streptococcus culture [facility] Work Phone: Start: 04-27-2018 Lipid panel LIPID PANEL (57877) [facility] Work Phone: Start: 2017 Assay of blood/uric acid URIC ACID BLOOD (82404) [facility] Work Phone: Start: 2017 Lipid panel Lipid Panel (91937) [facility] Work Phone: Comment on above: fasting Start: 10-13-2016 End: 10-13-2016 Appointment Appointment [facility] Work Phone: Start: 07-03-2016 End: 07-03-2016 Appointment Appointment [facility] Work Phone: Start: 07-03-2016 End: 07-03-2016 Streptococcus.beta-hemol ytic [Presence] in Throat by Organism specific culture *Culture, R/O Strep A Swab [facility] Work Phone: Start: 11-29-2014 Lipid panel Lipid Panel (50256) [facility] Work Phone: Comment on above: to be done in 6 weeks at hospital Start: 02-04-2013 Fibrin dgradj products d-dimer quantitative D-Dimer (63188) [facility] Work Phone: Start: 03-23-2012 Lipid panel Lipid Panel (70195) [facility] Work Phone: Comment on above: fasting Start: 01-22-2012 Hepatic function panel HEPATIC FUNCTION PANEL (37083) [facility] Work Phone: Start: 12-17-2011 Lipid panel Lipid Panel (41222) [facility] Work Phone: Start: 08-28-2011 Hemoglobin A1c/Hemoglobin.total mass fraction (Bld) Hemoglobin Glyclated (HGB A1C) (36882) [facility] Work Phone: Start: 08-28-2011 Lipid panel Lipid Panel (59368) [facility] Work Phone: Start: 04-30-2011 Lipid panel LIPID PANEL (39140) [facility] Work Phone: Start: 02-12-2011 Protein mass conc [facility] Work Phone: Start: 02-12-2011 Gonadotropin luteinizing hormone GONADOTROPIN-LH (39279) [facility] Work Phone: Start: 02-12-2011 Gonadotropin follicle stimulating hormone GONADOTROPIN-FSH (55461) [facility] Work Phone: Start: 02-12-2011 Hepatic function panel HEPATIC FUNCTION PANEL (92253) [facility] Work Phone: Start: 02-11-2011 Hemoglobin A1c/Hemoglobin.total mass fraction (Bld) Hemoglobin Glyclated (HGB A1C) (54482) [facility] Work Phone: Start: 02-05-2011 Gonadotropin luteinizing hormone GONADOTROPIN-LH (66090) [facility] Work Phone: Start: 02-05-2011 Gonadotropin follicle stimulating hormone GONADOTROPIN-FSH (38035) [facility] Work Phone: Start: 02-05-2011 Hepatic function panel HEPATIC FUNCTION PANEL (69976) [facility] Work Phone: Start: 01-15-2011 Thyrotropin Qn TSH (96180) [facility] Work Phone: Start: 01-15-2011 Urnls dip stick/tablet reagent auto microscopy URINALYSIS, W/ MICRO (18658) [facility] Work Phone: Start: 01-15-2011 Urine albumin quantitative MICROALBUMIN: CREATININE RATIO (97600) AND (81997) [facility] Work Phone: Start: 01-15-2011 Comprehensive metabolic panel METABOLIC PANEL, COMPREHENSIVE (45298) [facility] Work Phone: Start: 01-15-2011 Lipid panel LIPID PANEL (01052) [facility] Work Phone: Start: 01-15-2011 Creatinine other source CREATININE, URINE (27519) [facility] Work Phone: Start: 01-15-2011 Blood count manual cell count each CBC WITH MANUAL DIFF (36921) [facility] Work Phone: Start: 08-13-2009 Cul bact xcpt urine blood/stool aerobic isol TAMIA CULTURE-OTHER (40307) [facility] Work Phone: Comment on above: rt inner arm Start: 09-15-2007 Cytp c/v auto thin lyr prepj scr mnl rescr phys thin prep (90466) (std testing) [facility] Work Phone: Start: 09-15-2007 Iadna neisseria gonorrhoeae amplified probe tq NEISSERIA (35826) (THIN PREP OBTAINED) [facility] Work Phone: Start: 09-15-2007 Protein mass conc HUMAN PAPILVS, NUCLEIC ACID AMPL PROBE (33519) [facility] Work Phone: Start: 09-15-2007 Iadna chlamydia trachomatis amplified probe tq CHLAMYDIA (67081) (thin prep obtained) [facility] Work Phone: Start: 12-28-2006 Culture bacterial quanttative colony count urine URINE TAMIA CULTURE (ABIGAIL COL COUNT) (91544) [facility] Work Phone: Start: 03-04-2006 Lipid panel LIPID PANEL (40371) [facility] Work Phone: Comment on above: to be done in 6 months post life style c hanges. Start: 03-04-2006 Cytp cerv/vag auto thin layer prep mnl screen Thin prep Pap (58297) [facility] Work Phone: Start: 02-17-2006 Lipid panel LIPID PANEL (41563) [facility] Work Phone: Start: 02-17-2006 aPTT Coag time (Bld) PTT (ACTIVATED PARTIAL THROMBOPLASTIN TIME) (24884) [facility] Work Phone: Start: 02-17-2006 Prothrombin time (PT) Coag time (PPP) PT (PROTHROMBIN TIME) (96743) [facility] Work Phone: Start: 02-17-2006 Protein mass conc PROLACTIN (10892) [facility] Work Phone: Start: 02-17-2006 Comprehensive metabolic panel METABOLIC PANEL, COMPREHENSIVE (79314) [facility] Work Phone: Start: 02-17-2006 Thyrotropin Qn TSH (00962) [facility] Work Phone: Start: 02-17-2006 Blood count complete automated CBC (AUTO) (68702) [facility] Work Phone: Lipid 1996 panel - S rj or Plasma [facility] MG Breast - bilatera l Screening [facility] Work Phone: Patient referral [facility] Work Phone: Streptococcus pyogen es Ag [Presence] in Throat Group A Strep Throat Culture [facility] Work Phone: US Abdomen [facility] Work Phone: [facility] Work Phone: [facility] Work Phone[facility] Work Phone[facility] Work Phone: [facility] Work Phone: [facility] Work Phone: [facility] Work Phone: [facility] Work Phone[facility] Work Phone: [facility] Work Phone: [facility] Work Phone: [facility] Work Phone: [facility] Work Phone: [facility] Work Phone: [facility] Work Phone: [facility] Work Phone: [facility] Work Phone: [facility] Work Phone: [facility] Work Phone: [facility] Work Phone: [facility] Work Phone: [facility] Work Phone: [facility] Work Phone: [facility] Work Phone: [facility] Work Phone: [facility] Work Phone: [facility] Work Phone: [facility] Work Phone: [facility] Work Phone: [facility] Work Phone: [facility] Work Phone: [facility] Work Phone: [facility] Work Phone: Hypertension : H igh Blood Pressure (Essential Hypertension) *: blood pressure [facility] Work Phone: [facility] Immunizations Immunization Date Immunization Notes Care Provider Fa [facility] 11-30-2023 influenza, seasonal, injectable, preservative free Dae Osman 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 Santhosh Abbott Work Phone: [facility] 01-11-2021 Covid (Moderna) Dr. Mike Abbott Work Phone: [facility] 04-03-2020 Covid (Moderna) Dr. Mike Abbott Work Phone: [facility] 03-06-2020 Covid (Moderna) Dr. Mike Abbott Work Phone: [facility] 11-27-2019 influenza, injectabl e, quadrivalent, preservative free [facility] 11-27-2019 influenza, seasonal, injectable Dr. Santhosh Abbott Work Phone: [facility] 12-15-2018 influenza, injectabl e, quadrivalent, preservative free [facility] 12-15-2018 influenza, seasonal, injectable Dr. Santhosh Abbott Work Phone: [facility] 11-25-2017 influenza, injectabl e, quadrivalent, preservative free [facility] 11-25-2017 influenza, seasonal, injectable Dr. Santhosh Abbott Work Phone: [facility] 11-27-2016 influenza, injectabl e, quadrivalent, preservative free [facility] 11-27-2016 influenza, seasonal, injectable Dr. Santhosh Abbott Work Phone: [facility] 11-29-2015 influenza, injectabl e, quadrivalent, preservative free [facility] 11-29-2015 influenza, seasonal, injectable Dr. Santhosh Abbott Work Phone: [facility] 11-29-2014 influenza, injectabl e, quadrivalent, preservative free [facility] 11-29-2014 influenza, seasonal, injectable Dr. Santhosh Abbott Work Phone: [facility] 12-08-2013 influenza, injectabl e, quadrivalent, preservative free [facility] 12-08-2013 influenza, seasonal, injectable Dr. Santhosh Abbott Work Phone: [facility] Payers Date Payer Category Payer Self-pay [id number] 2024 Unknown [id number] 2016 Unknown [id number] 2005 Unknown [id number] 1965 Unknown [id number] Unknown Medical [facility] Unknown [id number] Unknown [id number] Unknown [id number] Unknown [id number] Unknown [id number] Unknown [id number] Social History Date Type Detail Facility Alcohol Use Never smoker [facility] Work Phone: Comment on above: Occasional alcohol u se 2 cups coffee 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 [facility] Work Phone: Start: 06-04-2021 End: 07-04-2022 Tobacco smoking status NHIS Unknown if ever smoked [facility] Start: 03-10-2018 Non-smoker [facility] Start: 1965 Sex Assigned At Female [facility] Start: 03-08-2024 Tobacco smoking stat us UTIS Never smoked tobacco (finding) [facility] Start: 05-17-2024 Sex Female (finding) [facility] Goals Date Patient Goal Desired Activity /State Functional Status Date Assessment Result Facility 01-21-2022 Functional status Ambulates [facility] Work Phone: Mental Status Date Assessment Result Facility 01-21-2022 Cognitive function Voice/Name [facility] Work Phone: 01-21-2022 Cognitive function Voice/Name [facility] Work Phone: 01-20-2022 Cognitive function Appropriate;Cooperativ e [facility] Work Phone: 01-19-2022 Cognitive function Level Of Cons ciousness Awake;Alert;Appropriate;Follow s Commands [facility] Work Phone: Clinical Notes 08-23-2024 Note Date & Type Note Facility 08-23-2024 Procedure note [facility] Evaluation note Diagnosis Onset Date Hyperlipidemia acute HTN (hypertension) chronic [facility] Work Phone: Evaluation note* Diagnosis Onset Date Resolution Status Acute pharyngitis noneactive [facility] Work Phone: Evaluation note* Diagnosis Onset Date Resolution Status Acute pharyngitis noneactive Elevated LFTs acute Encounter for preventative [facility] acute Metabolic syndrome noneactiv e [facility] Work Phone: Evaluation note* Diagnosis Onset Date Resolution Status Acute pharyngitis noneactive Elevated LFTs acute Encounter for preventative a dult health care examination acute Metabolic syndrome noneactiv e Acute kidney injury acute Dehydration acute Nausea vomiting and diarrhea acute Orthostatic syncope acute Syncope acute [facility] Work Phone: Evaluation note* Diagnosis Onset Date Resolution Status Acute pharyngitis noneactive Elevated LFTs acute Encounter for preventative a dult health care examination acute Metabolic syndrome noneactiv e Acute kidney injury resolved Dehydration resolved Nausea vomiting and diarrhea resolved Orthostatic syncope resolved Syncope resolved Acute kidney injury resolved Dehydration resolved Nausea vomiting and diarrhea resolved Syncope resolved [facility] Work Phone: Evaluation note* Diagnosis Onset Date Resolution Status Acute pharyngitis noneactive Elevated LFTs acute Encounter for preventative a dult health care examination acute Metabolic syndrome noneactiv e Acute kidney injury resolved Dehydration resolved Nausea vomiting and diarrhea resolved Orthostatic syncope resolved Syncope resolved Acute kidney injury resolved Dehydration resolved Nausea vomiting and diarrhea resolved Syncope resolved Hot flashes due to menopause chronic HTN (hypertension) [facility] Work Phone: Evaluation note* Diagnosis Onset Date Resolution Status Acute kidney injury resolved Dehydration resolved Nausea vomiting and diarrhea resolved Orthostatic syncope resolved Syncope resolved Acute kidney injury resolved Dehydration resolved Nausea vomiting and diarrhea resolved Syncope resolved Hot flashes due to menopause chronic HTN (hypertension) [facility] Work Phone: Evaluation note* Diagnosis Onset Date Resolution Status Hot flashes due to menopause chronic HTN (hypertension) [facility] Work Phone: Evaluation note* Diagnosis Onset Date Resolution Status Hot flashes due to menopause chronic HTN (hypertension) chronic Impacted cerumen acute HTN (hypertension) chronic Hyperlipidemia chronic Groin cyst noneactive [facility] Work Phone: Evaluation noteNo assessment information available [facility] Work Phone: Hospital Discharge instructionsAmbulatory Orders* Nutrition Referral Location: None [facility] Work Phone: Hospital Discharge instructionsAmbulatory Orders* General Surgery Location: None [facility] Work Phone: Reason for referral (narrative)No reason [facility] referral [facility] Work [facility]: Family History No Family History Records FoundUnknown Family Member Name Dates Details Brother 1 Comments:In good health, HTN Status:Active Father Comments:In good health, HTN Status:Active Mother Comments:Asthma, In good hea lth - HTN Status:Active Negative Family History of: Comments:HTN, parents, sibli ng Status:Active Relationship Condition Age at Onset Recorded Date/T elly mother Hypertension Unknown Asthma Unknown father Hypertension Unknown Malignant neoplasm of kidney Unknown brother Hypertension Unknown Instructions Name Dates Details Nonsmoker : How to access he alth information online Indication:Nonsmoker Encounter for screening for malignant neoplasm of colon (Renamed from Special screening for malignant neoplasms, colon) : How to access health information online - Detail Indication:Encounter for screening for malignant neoplasm of colon (Renamed from Special screening for malignant neoplasms, colon) BMI 35.0-35.9,adult : Patien t Instructions Indication:BMI 35.0-35.9,adult Nonsmoker : How to access he alth information online - Detail Indication:Nonsmoker Nonsmoker : Patient Instruct ions Indication:Nonsmoker Cough : How to access health information online Indication:Cough Cough : How to access health information online - Detail Indication:Cough Cough : Patient Instructions Indication:Cough Hypertension : Patient Instr uctions Indication:Hypertension Hypercholesteremia : Patient Instructions Indication:Hypercholesteremia Vaccine for diphtheria-tetan us-pertussis with poliomyelitis : How to access health information online Indication:Vaccine for nvongwntjx-ifptmmh-hgqqjqdml with poliomyelitis Vaccine for diphtheria-tetan us-pertussis with poliomyelitis : How to access health information online - Detail Indication:Vaccine for raeahrsixo-augkokv-npoeyypmq with poliomyelitis Vaccine for diphtheria-tetan us-pertussis with poliomyelitis : Patient Instructions Indication:Vaccine for oltrpxjekv-akwuuxj-tlqahwgoo with poliomyelitis Wheezing : Patient Instructi ons Indication:Wheezing Lipoma of lower extremity : Patient Instructions Indication:Lipoma of lower extremity Sebaceous cyst : Patient Ins tructions Indication:Sebaceous cyst Summary Purpose Advance Directives No Advanced Directives Records Found Advance Directive Response Recorded Date/ Time Advance Directives No August 31 9 11:51am Living Will No September 13, 2020 2:39pm Power of Maintenance Helper No September 13 2:39pm Advance Directive Response Recorded Date/ Time Advance Directives No August 31 9 10:51am Living Will No January 19 4:17am Power of Maintenance Helper No January 19, 2022 4:17am Advance Directive Response Recorded Date/ Time Advance Directives No August 31 9 10:51am Living Will No January 19 7:44am Power of Maintenance Helper No January 19, 2022 7:44am Advance Directive Response Recorded Date/ Time Advance Directives No August 31 9 11:51am Living Will No January 19 8:44am Power of Maintenance Helper No January 19, 2022 8:44am Advance Directive Response Recorded Date/ Time Living Will No March 08 11:42pm Power of Maintenance Helper No March 08, 2 025 11:42pm Advance Directives No August 31 11:51am Advance Directive Response Recorded Date/ Time Advance Directives No August 31 11:51am Chief Complaint and Reason for Visit Chief Complaint 6 M FU Reason for Visit Hyperlipidemia HTN (hypertension) Chief Complaint LABWORK LABWORK CONCERN FOR STREP THROAT Reason for Visit Acute pharyngitis Chief Complaint LABWORK LABWORK CONCERN FOR STREP THROAT WELLNESS VISIT Reason for Visit Acute pharyngitis Elevated LFTs Encounter for preventative adult health care examination Metabolic syndrome Chief Complaint LABWORK LABWORK CONCERN FOR STREP THROAT WELLNESS VISIT ELEVATED LFT, SCREENING METABOLIC SYNDROME MIN WITH SYNCOPE general illness Reason for Visit Acute pharyngitis Elevated LFTs Encounter for preventative adult health care examination Metabolic syndrome Acute kidney injury Dehydration Nausea vomiting and diarrhea Orthostatic syncope Syncope Chief Complaint LABWORK LABWORK CONCERN FOR STREP THROAT WELLNESS VISIT ELEVATED LFT, SCREENING METABOLIC SYNDROME MIN WITH SYNCOPE general illness MIN WITH SYNCOPE Reason for Visit Acute pharyngitis Elevated LFTs Encounter for preventative adult health care examination Metabolic syndrome Acute kidney injury Dehydration Nausea vomiting and diarrhea Orthostatic syncope Syncope Chief Complaint LABWORK LABWORK CONCERN FOR STREP THROAT WELLNESS VISIT ELEVATED LFT, SCREENING METABOLIC SYNDROME MIN WITH SYNCOPE general illness MIN WITH SYNCOPE MIN WITH SYNCOPE [facility] FU Reason for Visit Acute pharyngitis Elevated LFTs Encounter for preventative adult health care examination Metabolic syndrome Acute kidney injury Dehydration Nausea vomiting and diarrhea Orthostatic syncope Syncope Acute kidney injury Dehydration Nausea vomiting and diarrhea Syncope Chief Complaint LABWORK LABWORK CONCERN FOR STREP THROAT WELLNESS VISIT ELEVATED LFT, SCREENING METABOLIC SYNDROME MIN WITH SYNCOPE general illness MIN WITH SYNCOPE MIN WITH SYNCOPE [facility] FU METABOLIC SYNDROME Reason for Visit Acute pharyngitis Elevated LFTs Encounter for preventative adult health care examination Metabolic syndrome Acute kidney injury Dehydration Nausea vomiting and diarrhea Orthostatic syncope Syncope Acute kidney injury Dehydration Nausea vomiting and diarrhea Syncope Chief Complaint LABWORK LABWORK CONCERN FOR STREP THROAT WELLNESS VISIT ELEVATED LFT, SCREENING METABOLIC SYNDROME MIN WITH SYNCOPE general illness MIN WITH SYNCOPE MIN WITH SYNCOPE [facility] FU METABOLIC SYNDROME 3 M FU METABOLIC SYNDROME Reason for Visit Acute pharyngitis Elevated LFTs Encounter for preventative adult health care examination Metabolic syndrome Acute kidney injury Dehydration Nausea vomiting and diarrhea Orthostatic syncope Syncope Acute kidney injury Dehydration Nausea vomiting and diarrhea Syncope Hot flashes due to menopause HTN (hypertension) Chief Complaint ELEVATED LFT, SCREEN ING METABOLIC SYNDROME MIN WITH SYNCOPE general illness MIN WITH SYNCOPE MIN WITH SYNCOPE [facility] FU METABOLIC SYNDROME 3 M FU METABOLIC SYNDROME METABOLIC SYNDROME Reason for Visit Acute kidney injury Dehydration Nausea vomiting and diarrhea Orthostatic syncope Syncope Acute kidney injury Dehydration Nausea vomiting and diarrhea Syncope Hot flashes due to menopause HTN (hypertension) Chief Complaint METABOLIC SYNDROME 3 M FU METABOLIC SYNDROME METABOLIC SYNDROME METABOLIC SYNDROME Reason for Visit Hot flashes due to m enopause HTN (hypertension) Chief Complaint 3 M FU METABOLIC SYNDROME METABOLIC SYNDROME METABOLIC SYNDROME 3 M FU/ears cleaning Reason for Visit Hot flashes due to m enopause HTN (hypertension) Impacted cerumen HTN (hypertension) Hyperlipidemia Groin cyst Chief Complaint SCREENING Chief Complaint Admit Date n/v/d March 08, 2024 10 :36pm SCREENING May 05, 2024 11:4 2am Chief Complaint Admit Date SCREENING May 05, 2024 11:4 2am HYPERSOMNIA July 04, 2024 10:14a m Chief Complaint Admit Date SCREENING May 05, 2024 11:4 2am HYPERSOMNIA July 04, 2024 10:14a m LUE; ANESTHESIA OF SKIN August 23, 2024 1:40pm LUE; ANESTHESIA OF SKIN August 23, 2024 2:23pm Additional Source Comments INFORMATION SOURCE (unrecogn ized section and content) DATE CREATED AUTHOR 02/08/2018 [facility] DATE CREATED AUTHOR AUTHOR'S ORGANIZ ATION 10/05/2024 [facility] Goals (unrecognized section and content) Goals may be documented in a n alternate sectionGoals may be documented in an alternate sectionGoals may be documented in an alternate sectionGoals may be documented in an alternate sectionGoals may be documented in an alternate sectionGoals may be documented in an alternate sectionGoals may be documented in an alternate sectionGoals may be documented in an alternate sectionGoals may be documented in an alternate sectionGoals may be documented in an alternate sectionGoals may be documented in an alternate sectionGoals may be documented in an alternate sectionGoals may be documented in an alternate section Care Teams (unrecognized sec tion and content) Team Status: Active Member Role Status Dates Dr. Santhosh Abbott MD Family Provider Active Dr. Santhosh Abbott MD Primary Care Provider Active Team Status: Inactive Member Role Status Dates Dae Osman SENIOR SOFTWARE MANAGER, SENIOR SOFTWARE MANAGER-C Attending Provider Active Dr. Santhosh bAbott MD Primary Care Provider, Refer ring Provider Active Team Status: Inactive Member Role Status Dates Dr. Santhosh Abbott MD Primary Care Provider, Refer ring Provider Active Dae Osman SENIOR SOFTWARE MANAGER, SENIOR SOFTWARE MANAGER-C Attending Provider Active Team Status: Active Member Role Status Dates Dr. Santhosh Abbott MD Primary Care Provider Active Dr. Samir Mathews DO Emergency Provider Active Dr. Jayy Beatty MD Attending Provider Active Team Status: Active Member Role Status Dates Dr. Santhosh Abbott MD Primary Care Provider Active Dr. Samir Mathews DO Emergency Provider Active Dr. Jayy Beatty MD Admit Provider, Other Pro vider Active Dr. Lisa Cole MD Attending Provider, Other Provider Active Dr. Cathy Siddiqui MD Other Provider Active Team Status: Inactive Member Role Status Dates Dr. Santhosh Abbott MD Primary Care Provider Active Dae Osman SENIOR SOFTWARE MANAGER, SENIOR SOFTWARE MANAGER-C Attending Provider Active Team Status: Active Member Role Status Dates Dr. Santhosh Abbott MD Primary Care Provider Active Health Risk Assessment Attending Provider Active Team Status: Active Member Role Status Dates Dr. Santhosh Abbott MD Primary Care Provider Active Dr. Tacho Horn MD Attending Provider Active Team Status: Inactive Member Role Status Dates Dr. Santhosh Abbott MD Primary Care Provider Active Dae Osman SENIOR SOFTWARE MANAGER, SENIOR SOFTWARE MANAGER-C Attending Provider, Referring Prov ider Active Team Status: Inactive Member Role Status Dates Dr. Santhosh Abbott MD Primary Care Provider Active Dr. Samir Mathews DO Emergency Provider Active Dr. Jayy Beatty MD Admit Provider, Other Pro vider Active Dr. Cathy Siddiqui MD Other Provider Active Dr. Lisa Cole MD Attending Provider Active Team Status: Inactive Member Role Status Dates Dr. Santhosh Abbott MD Primary Care Provider, Atten ding Provider Active Team Status: Inactive Member Role Status Dates Dr. Santhosh Abbott MD Primary Care Provider Active Dae Osman VSC, SENIOR SOFTWARE MANAGER-C Attending Provider Active Team Status: Active Member Role Status Dates Dae Osman VSC, SENIOR SOFTWARE MANAGER-C Primary Care Provider Active Team Status: Inactive Member Role Status Dates Dae Osman VSC, SENIOR SOFTWARE MANAGER-C Primary Care Provider Active Start: March 08, 2024 End: March 09, 2024 Dr. Butch Christina DO Attending Provider Active Start: March 08, 2024 End: March 09, 2024 Dr. Butch Christina DO Emergency Provider Active Start: March 08, 2024 End: March 09, 2024 Team Status: Inactive Member Role Status Dates Dae Hernandezder VSC, SENIOR SOFTWARE MANAGER-C Primary Care Provider Active Start: May 05, 2024 End: May 05, 2024 Dae Jacqui VSC, SENIOR SOFTWARE MANAGER-C Attending Provider Active S tart: May 05, 2024 End: May 05, 2024 Dae Osman VSC, SENIOR SOFTWARE MANAGER-C Referring Provider Active S tart: May 05, 2024 End: May 05, 2024 Team Status: Active Member Role Status Dates Dae Hernandezder VSC, SENIOR SOFTWARE MANAGER-C Primary Care Provider Active Start: July 04, 2024 Dae Hernandezder VSC, SENIOR SOFTWARE MANAGER-C Attending Provider Active S tart: July 04, 2024 Dae Hernandezder VSC, SENIOR SOFTWARE MANAGER-C Referring Provider Active S tart: July 04, 2024 Team Status: Inactive Member Role Status Dates Dae Hernandezder VSC, SENIOR SOFTWARE MANAGER-C Primary Care Provider Active Start: July 04, 2024 End: July 04, 2024 Dae Hernandezder VSC, SENIOR SOFTWARE MANAGER-C Attending Provider Active S tart: July 04, 2024 End: July 04, 2024 Dae Hernandezder VSC, SENIOR SOFTWARE MANAGER-C Referring Provider Active S tart: July 04, 2024 End: July 04, 2024 Team Status: Active Member Role/Relationship Status Dates Dae Hernandezder VSC, SENIOR SOFTWARE MANAGER-C Primary Care Provider Active Team Status: Inactive Member Role/Relationship Status Dates Dae Hernandezder VSC, SENIOR SOFTWARE MANAGER-C Primary Care Provider Active Start: May 05, 2024 End: May 05, 2024 Dae Hernandezder VSC, SENIOR SOFTWARE MANAGER-C Attending Provider Active S tart: May 05, 2024 End: May 05, 2024 Dae Hernandezder VSC, SENIOR SOFTWARE MANAGER-C Referring Provider Active S tart: May 05, 2024 End: May 05, 2024 Team Status: Inactive Member Role/Relationship Status Dates Dae Hernandezder VSC, SENIOR SOFTWARE MANAGER-C Primary Care Provider Active Start: July 04, 2024 End: July 04, 2024 Dae Hernandezder VSC, SENIOR SOFTWARE MANAGER-C Attending Provider Active S tart: July 04, 2024 End: July 04, 2024 Dae Hernandezder VSC, SENIOR SOFTWARE MANAGER-C Referring Provider Active S tart: July 04, 2024 End: July 04, 2024 Team Status: Inactive Member Role/Relationship Status Dates Dae Osman VSC, SENIOR SOFTWARE MANAGER-C Primary Care Provider Active Start: July 04, 2024 End: July 04, 2024 Dae Osman VSC, SENIOR SOFTWARE MANAGER-C Attending Provider Active S tart: July 04, 2024 End: July 04, 2024 Dae Osman VSC, SENIOR SOFTWARE MANAGER-C Referring Provider Active S tart: July 04, 2024 End: July 04, 2024 Team Status: Inactive Member Role/Relationship Status Dates Dae Hernandezder VSC, SENIOR SOFTWARE MANAGER-C Primary Care Provider Active Start: August 23, 2024 End: August 23, 2024 Laury Goinshof , SENIOR SOFTWARE MANAGER-C Attending Provider Active Start: August 23, 2024 End: August 23, 2024 Laury Tannhof , SENIOR SOFTWARE MANAGER-C Referring Provider Active Start: August 23, 2024 End: August 23, 2024 Team Status: Active Member Role/Relationship Status Dates Dae Osman VSC, SENIOR SOFTWARE MANAGER-C Primary Care Provider Active Start: August 23, 2024 Laury Goinshof , SENIOR SOFTWARE MANAGER-C Referring Provider Active Start: August 23, 2024 Laury Tannhof , SENIOR SOFTWARE MANAGER-C Other Provider Active Star t: August 23, 2024 Dr. Khoa Mohan MD Attending Provider Active Start: August 23, 2024 FOR RECORDS PERTAINING TO PATIENTS WHO ARE OR HAVE BEEN ENROLLED IN A CHEMICAL DEPENDENCY/SUBSTANCEABUSE PROGRAM, SOME INFORMATION MAY BE OMITTED. This clinical summary was aggregated from multiple sources. Caution should be exercised in using it in the provision of clinical care. This summary normalizes information from multiple sources, and as a consequence, information in this document may materially change the coding, format and clinical context of patient data. In addition, data may be omitted in some cases. CLINICAL DECISIONS SHOULD BE BASED ON THE PRIMARY CLINICAL RECORDS. [facility] [employer] [facility]. provides no warranty or guarantee of the accuracy or completeness of information in this document.
== END | disposition home or self-care (01) ==
PROVIDERS: PCP Nurse Practitioner Family; Referring Provider Nurse Practitioner Family; Visit Provider Nurse Practitioner Family
DX: E78.5 Hyperlipidemia, unspecified (principal); R73.03 Prediabetes
CPT/HCPCS: 36415; 80053; 80061; 83036